=== PATIENT | female | born 1935 | race Caucasian/White ===

== ENCOUNTER 2016-08-13 13:49 | Inpatient (IN) | payer MEDICARE, OTHER ==
[~2016-08-13] VITALS: Ht 162.6 cm; Wt 78.2 kg
[~2016-08-13 13:49] MED LIST: VIGA LEFT EYE
[2016-08-13] MEDS ORDERED: AZTREONAM 1 GM/NS (PMX) 50 ML IVPB STA (14:06)
[2016-08-13] MEDS ORDERED: SOD CHLORIDE 0.9% 1,000 ML IV STA ×2 (14:06)
[2016-08-13] MEDS ORDERED: PANTOPRAZOLE IV 80 MG in SOD CHLORIDE 0.9% 100 ML IV STA (14:30)
[2016-08-13] MEDS ORDERED: ONDANSETRON 4 MG INJ IV STA (14:30)
[2016-08-13] MEDS ORDERED: VANCOMYCIN 1 GM (PMX) 250 ML IVPB ONE (14:30)
[2016-08-13] MEDS ORDERED: PANTOPRAZOLE IV 80 MG in SOD CHLORIDE 0.9% 100 ML IVPB STA (14:30)
--- NOTE | 2016-08-13 14:33 | RADRPT ---
PROCEDURE: XR Chest. CLINICAL INDICATION: Chest pain, respiratory distress, sepsis TECHNIQUE: AP view of the chest was performed. COMPARISON: FINDINGS: The cardiomediastinal silhouette is within normal limits. The lungs are clear. No signs of pleural f luid or pneumothorax are seen. The osseous structures and soft tissues are unremarkable. IMPRESSION: No evidence for active cardiopulmonary disease. RPTAT: QQ .Melissa Pruitt MD, MD Date Time Electronically viewed and signed by .Melissa Pruitt MD, on 08/13/2016 14:33 .F/
--- NOTE | 2016-08-13 14:49 | EN ---
Date/Time of Note Date/Time of Note DATE: 08/13/16 TIME: 14:47 ER Progress Note Peripheral IV Insertion: Indication: Difficult IV access Location: Right antecubital fossa Attempts: One attempt Angiocath-type: 18-gauge The patient was consented prior to procedure and states understanding of risks, benefits, alternatives. Verbal consent was provided Sterile procedure was used to insert a peripheral IV. Indication, location and Angiocath-type are noted above. Ultrasound guidance was used to assist in the insertion of the Angiocath. Return of dark nonpulsatile blood was obtained, normal saline flushed through the Angiocath which was then secured to the skin. The patient tolerated the procedure well without complications. Emergency Bedside Ultrasound: The patient was verbally consented prior to procedure and understands the risks , benefits, and alternatives. The patient is agreeable to procedure and has given verbal consent. Indication: Peripheral IV insertion Probe Type: Linear Findings: Dynamic ultrasound utilized with compression technique with both linear and horizontal views. The images were not able to be printed because the ultrasound machine does not have access to a printer HELDER BRISENO MD Aug 13, 2016 14:49
[2016-08-13] MEDS ORDERED: SOD CHLORIDE 0.9% 500 ML IV STA (14:53)
[2016-08-13 14:56] LABS: HEMATOCRIT 30.3 % (37.0-47.0); MEAN CORPUSCULAR HEMOGLOBIN 28.8 pg (29.0-33.0); MEAN CORPUSCULAR VOLUME 87.3 fl (82.0-101.0); MEAN PLATELET VOLUME 8.9 fl (7.4-10.4); PLATELET COUNT 255 10^3/UL (140-440); RED BLOOD COUNT 3.47 10^6/ul (4.20-5.40); UNCORRECTED WBC 21.1 10^3/ul (4.8-10.8); WHITE BLOOD COUNT 21.1 10^3/ul (4.8-10.8)
[2016-08-13 14:59] LABS: INR 1.57; PROTIME 18.9 Sec (12.2-14.2); PT RATIO 1.5
[2016-08-13] MEDS ORDERED: CARV12.598 PO (15:00)
[2016-08-13] MEDS ORDERED: DILTIAZEM 25 MG INJ IV ONE (15:00)
[2016-08-13] MEDS ORDERED: DOCU-144 PO (15:01)
[2016-08-13 15:03] LABS: ALBUMIN 2.2 g/dl (3.3-4.9); POTASSIUM 3.7 mmol/L (3.5-5.1)
[2016-08-13] MEDS ORDERED: CLON-379 PO (15:03)
[2016-08-13 15:05] LABS: BILIRUBIN,INDIRECT 0.1 mg/dl (0-1.1); BILIRUBIN,TOTAL 0.1 mg/dl (0.2-1.3); CREATININE 1.08 mg/dl (0.44-1.00)
[2016-08-13] MEDS ORDERED: BUSP10TA2 PO (15:05)
[2016-08-13 15:06] LABS: ALBUMIN/GLOBULIN RATIO 0.64; CALCIUM 7.3 mg/dl (8.4-10.2); TOTAL PROTEIN 5.6 g/dl (6.1-8.1)
[2016-08-13] MEDS ORDERED: ASPI-664 PO (15:06)
[2016-08-13] MEDS ORDERED: BEN25 PO (15:06)
[2016-08-13] MEDS ORDERED: POLY15DR25 BOTH EYES (15:07)
[2016-08-13 15:08] LABS: CONDITION 1; LH ANALYZER COMMENTS 1; SUSPECT 1
[2016-08-13] MEDS ORDERED: CRAN425C PO (15:08)
[2016-08-13] MEDS ORDERED: BISA-57 PO (15:09)
[2016-08-13] MEDS ORDERED: NA P135E RC (15:10)
--- NOTE | 2016-08-13 15:10 | RADRPT ---
PROCEDURE: Noncontrast CT Head. CLINICAL INDICATION: Sepsis. TECHNIQUE: Noncontrast CT of the head was obtained. The administered radiation dose was CTDI vol = 45.01, 45.01 mGy, DLP = 720.23, 720.23 mGy-cm. COMPARISON: There are no similar studies submitted for comparison. FINDINGS: Evaluation is mildly limited due to motion degradation. There is mild generalized cerebral volume loss. There is minimal periventricular hypoattenuation suggesting chronic microvascular ischemic changes. There are mild vascular calcifications within the intracranial carotid arteries. There is an indet erminate coarse calcification within the right aspect of the fourth ventricle. There is no loss of hernandez-white differentiation to suggest acute territorial infarction. There is no acute intracranial hemorrhage or extra-axial fluid collection. There is no mass effect. No midline shift is identified. The patient is status post bilateral lens surgery. The paranasal sinuses are well aerated. No destructive osseous lesion is identified. IMPRESSION: Evaluation is mildly limited due to motion degradation. 1. No acute intracranial hemorrhage or extra-axial fluid collection. 2. Mild generalized cerebral volume loss. 3. Minimal chronic microvascular ischemic changes. Further findings as detailed above. RPTAT: PP .Ben Coffey MD, MD Date Time Electronically viewed and signed by .Ben Coffey MD, on 08/13/2016 15:10 .F/
[2016-08-13] MEDS ORDERED: LANT3I SC (15:11)
[2016-08-13] MEDS ORDERED: GLIP5TAB13 PO (15:11)
[2016-08-13] MEDS ORDERED: ATOR10TA65 PO (15:12)
[2016-08-13] MEDS ORDERED: METF-382 PO (15:12)
[2016-08-13] MEDS ORDERED: MULTI PO (15:13)
[2016-08-13] MEDS ORDERED: MURO BOTH EYES (15:14)
[2016-08-13] MEDS ORDERED: NIT4 SL (15:14)
[2016-08-13] MEDS ORDERED: AMLO5TAB4 PO (15:15)
[2016-08-13] MEDS ORDERED: TRAM-40 PO (15:16)
[2016-08-13] MEDS ORDERED: ACET-2047 PO (15:16)
[2016-08-13 15:17] LABS: TROPONIN-I 0.013 ng/ml (0.00-0.12)
[2016-08-13] MEDS ORDERED: GUAI-637 PO (15:17)
[2016-08-13] MEDS ORDERED: ONDA-43 PO (15:18)
[2016-08-13] MEDS ORDERED: CALC1TAB79 PO (15:18)
[2016-08-13] MEDS ORDERED: ASCO500C7 PO (15:19)
[2016-08-13] MEDS ORDERED: NITROGLYCERIN (SL) 0.4 MG TAB SL PRN (16:00)
[2016-08-13] MEDS: PANTOPRAZOLE IV 80 MG in SOD CHLORIDE 0.9% 100 ML IV SCH (16:00)
[2016-08-13] MEDS ORDERED: DILTIAZEM-D5W 125MG/125ML DRIP 125 ML IV SCH (16:00)
[2016-08-13] MEDS ORDERED: ACETAMINOPHEN 650 MG SUPP PR PRN (16:00)
[2016-08-13] MEDS ORDERED: NACL 0.9% 3 ML SYG IV SCH (16:00)
[2016-08-13 16:08] LABS: BURR CELLS 1+; LYMPHOCYTES # 1.1 10^3/ul (0.8-2.9); MONOCYTE # 0.6 10^3/ul (0.3-0.9); NEUTROPHIL # 18.6 10^3/ul (1.6-7.5)
--- NOTE | 2016-08-13 16:13 | RADRPT ---
PROCEDURE: US DVT. CLINICAL INDICATION: Left upper extremity swelling and pain. TECHNIQUE: Multiple longitudinal and transverse images of the the left upper extremity veins were obtained with hernandez scale and color Doppler imaging. 2D grayscale measurements with compression, col or Doppler flow, and augmentation was performed. COMPARISON: No prior studies are available for comparison. FINDINGS: The left jugular vein, subclavian vein, axillary vein, and brachial veins are normally compressible throughout. Color flow demonstrates normal filling of the vessel. Normal waveforms are visualized and there is normal response to augmentation. The left radial vein was not imaged. The patient had some difficulty tolerating compression for the compression portion of the examination. IMPRESSION: 1. No evidence of a deep vein thrombosis involving the left upper extremity. RPTAT: HMJB .Segundo Gonzales MD, MD Date Time Electronically viewed and signed by .Segundo Gonzales MD, MD on 08/13/2016 16:13 .B/
[2016-08-13 16:36] LABS: CREATINE KINASE 46 IU/L (23-200); HDL CHOLESTEROL 8 mg/dl (33-92); MAGNESIUM 1.8 mg/dl (1.7-2.5); TRIGLYCERIDES 53 mg/dl (0-149)
[2016-08-13 16:37] LABS: CHOLESTEROL < 50 mg/dl (100-200)
[2016-08-13 16:48] LABS: TROPONIN-I 0.015 ng/ml (0.00-0.12)
[2016-08-13 16:49] LABS: CK-MB < 0.22 ng/ml (0.0-2.4)
--- NOTE | 2016-08-13 16:49 | HP ---
Date/Time of Note Date/Time of Note DATE: 08/13/16 TIME: 16:48 Assessment/Plan VTE Prophylaxis VTE Prophylaxis Intervention: contraindicated, SCD's VTE Contraindication Reason: bleeding Assessment/Plan Assessment/Plan 80 yo female who came in via BIBA from [facility] who has a past medical history of CVA , essential hypertension, CHF - diastolic type, AFib, dyslipidemia, PVD, GERD, anxiety, who came in because of weakness. 1. UGIB - acute - will admit the patient to telemetry, consult GI for EGD, protonix drip, H/H q6h, NPO, IVF, monitor acute changes 2. Afib with RVR - consult cardio, cardizem drip, 2D ECHO, fall precautions 3. SIRS - with tachycardia/leukocytosis - broad spectrum antibiotics, cultures, could be reactive for acute GI bleed 4. Metabolic acidosis - 2/2 #3 5. CVA - monitor changes - hold aspirin 6. Essential hypertension - lopressor 2.5 mg q6h prn for SBP > 160 7. CHF - diastolic type - I/O's monitor for acute edema 8. Dyslipidemia - hold statin 9. GERD - on protonix gtt 10. PVD - monitor for acute changes 11. Anxiety - prn ativan 12. GI ppx - protonix GTT 13. DVT ppx - scds - hold anticoagulants for acute bleed answered all of her questions. as per clinical course. this history and physical took greater then 45 minutes to complete HPI/ROS Admit Date/Time Admit Date/Time 08/13/2016, 4:48 pm Hx of Present Illness 80 yo female who came in via BIBA from [facility] who has a past medical history of CVA , essential hypertension, CHF - diastolic type, AFib, dyslipidemia, PVD, GERD, anxiety, who came in because of weakness. She has been feeling weak for a couple of days. During her ER visit, she had 2 episodes of hematemesis. She went into AFib RVR - placed on cardizem gtt. She denies any chest pain, loss of consciousness, headaches, urinary irregularities, shortness of breath, diarrhea , dizziness or other constitutional symptoms. ER course: protonix gtt, cardizem 10 mg bolus given, IVF ROS 14 point review of systems completed, please refer to HPI for any positive findings PMH/Family/Social Past Medical History CVA, AFib, PVD, GERD, anxiety Medical History: congestive heart failure, coronary artery disease, diabetes, high cholesterol, hypertension Past Surgical History , TNA Family History Significant Family History: no pertinent family hx Social History Alcohol Use: none Smoking Status: Never smoker Drug Use: none Exam/Review of Systems Vital Signs Vitals Vital Signs Date Time Temp Pulse Resp B/P Pulse Ox O2 Delivery O2 Flow Rate FiO2 08/13/16 15:25 Nasal Cannula 2 08/13/16 14:11 100.0 130 22 128/86 98 Exam Exam Gen Gifty: mild distress 2/2 to nausea, AAOx4 HEENT: NC/AT, PERRLA, EOMI, conjunctival pallor, no pharyngeal erythema, no tonsillar exudates, no lymphadenopathy, no JVD, no carotid bruits, MM with dried blood NECK: supple, no thyromegaly THORAX: symmetrical, no obvious deformities CV: S1S2, tachycardiac irregularly irregular, soft II/ systolic murmur apex Lungs: CTAB no W/C/R/R Abd: soft, NT/ND, +BS, no rebound, no guarding, neg HSM EXT: 1+ non-pitting bilateral lower extremity edema, no ecchymosis, no clubbing , FROM Neuro: CN II-XII grossly intact, no focal deficits Psych: good mentation, alert and oriented, good mood and affect Skin: decreased skin turgor Labs Result Diagram: 08/13/16 1410 08/13/16 1410 Medications Medications Current Medications Sodium Chloride (NS) 1,000 ml @ 75 mls/hr [id number] IV ; Start 08/13/16 at 15:31 Lorazepam (Ativan) 0.5 mg Q6H PRN IV ANXIETY; Start 08/13/16 at 16:00 Ondansetron HCl (Zofran Inj) 4 mg Q6H PRN IV NAUSEA AND/OR VOMITING; Start 08/13 at 16:00 Nitroglycerin (Nitroglycerin (Sl Tab) 0.4 Mg) 1 tab Q5M PRN SL CHEST PAIN; Start 08/13/16 at 16:00 Acetaminophen (Tylenol Supp) 650 mg Q6H PRN MO PAIN LEVEL 1-3 OR FEVER; Start 08/13/16 at 16:00 Morphine Sulfate (morphine) 2 mg Q4H PRN IV PAIN LEVEL 7-10; Start 08/13/16 at 16:00 Bisacodyl (Dulcolax) 5 mg DAILY PRN PO CONSTIPATION; Start 08/13/16 at 16:00 Insulin Aspart NOVOLOG *MILD* ALGORI... Q4 SC ; Start 08/13/16 at 17:00 Pantoprazole 80 mg/Sodium Chloride 100 ml @ 10 mls/hr Q10H IV ; Start 08/13/16 at 16:00 Diltiazem HCl (Cardizem-D5W 125 Mg/125 ml Drip) 125 ml @ 5 mls/hr TITRATE IV ; Start 08/13/16 at 16:00 Procedures Procedures Upper Ext Venous Duplex IMPRESSION: 1. No evidence of a deep vein thrombosis involving the left upper extremity. CT brain IMPRESSION: Evaluation is mildly limited due to motion degradation. 1. No acute intracranial hemorrhage or extra-axial fluid collection. 2. Mild generalized cerebral volume loss. 3. Minimal chronic microvascular ischemic changes. CXR IMPRESSION: No evidence for active cardiopulmonary disease. SÁNCHEZ WOMACK MD Aug 13, 2016 16:49
[2016-08-13] MEDS ORDERED: MAGNESIUM SULFATE 2 GM/50 ML 50 ML IVPB ONE (17:00)
[2016-08-13] MEDS ORDERED: GLUCAGON 1 MG INJ IM PRN (17:30)
[2016-08-13] MEDS ORDERED: DEXTROSE 50% 50 ML SYRINGE IV PRN (17:30)
[2016-08-13] MEDS ORDERED: GLUCOSE GEL 15 GRAM TUBE PO PRN ×2 (17:30)
[2016-08-13] MEDS ORDERED: GLUCOSE GEL 15 GRAM TUBE BUCCAL PRN (17:30)
--- NOTE | 2016-08-13 17:37 | ERA ---
ER Documentation Chief Complaint Date/Time DATE: 08/13/16 TIME: 17:33 Chief Complaint SWOLLEN RIGHT ARM HPI Patient is a 80-year-old female with stroke, diabetes, and kidney disease who presents with nausea and vomiting. She was brought in by ambulance. Please note the history and physical exam is limited secondary to the patient's mental status. He also has had left upper extremity swelling for 2 weeks. She had decreased intake by mouth. She has been diffusely weak. Upon review of old medical records the patient had one previous visit in October 2013. ROS All systems reviewed and are negative except as per history of present illness. Medications Home Meds Reported Medications Ascorbic Acid* (Vitamin C*) 500 Mg Capsule.sa, 500 MG PO DAILY, CAP 08/13/16 Ondansetron Hcl* (Zofran*) 4 Mg Tab, 4 MG PO Q4H Y for NAUSEA AND OR VOMITING, TAB 08/13/16 Calcium Carbonate/Vitamin D3 (Oysco 500+D Tablet) 1 Each Tablet, 1 EACH PO DAILY , TAB 08/13/16 Guaifenesin* (Robitussin*) 100 Mg/5 Ml Syrup, 200 MG PO Q4H Y for COUGH, ML 08/13/16 Tramadol Hcl* (Ultram*) 50 Mg Tablet, 50 MG PO Q4 Y for PAIN, TAB 08/13/16 Acetaminophen* (Acetaminophen*) 650 Mg Tablet, 650 MG PO Q4 Y for PAIN AND OR ELEVATED TEMP, #30 TAB 08/13/16 Amlodipine Besylate* (Norvasc*) 5 Mg Tablet, 5 MG PO DAILY, TAB 08/13/16 Nitroglycerin* (Nitrostat*) 0.4 Mg Tab.subl, 0.4 MG SL Q5MIN Y for CHEST PAIN, BOTTLE 08/13/16 Sodium Chloride* (Koffi-128*) 5%-15ml Opht, 1 DROP BOTH EYES TID, EA 08/13/16 Multivitamins* (Theragran*) 1 Tab Tab, 1 TAB PO DAILY, TAB 08/13/16 Metformin Hcl* (Metformin Hcl*) 500 Mg Tablet, 500 MG PO WITH MEALS, #30 TAB 08/13/16 Atorvastatin Calcium (Atorvastatin Calcium) 10 Mg Tablet, 10 MG PO QHS, #30 TAB 08/13/16 Insulin Glargine* (Lantus*) 100 Unit/Ml Soln, 30 UNIT SC QHS, #1 VIAL 08/13/16 Glipizide* (Glipizide*) 5 Mg Tablet, 5 MG PO AC BREAKFAST DINNER, TAB 08/13/16 Na Phos,M-B/Na Phos,Di-Ba (ENEMA READY TO USE) 135 Ml Enema, 135 ML RC PRN Y for CONSTIPATION, ENEMA 08/13/16 Bisacodyl* (Dulcolax*) 5 Mg Tablet.dr, 10 MG PO DAILY Y for CONSTIPATION, TAB 08/13/16 Cranberry Extract (Cranberry) 425 Mg Capsule, 425 MG PO DAILY, CAP 08/13/16 Polyvinyl Alcohol (Tears Again) 15 Ml Drops, 1 DRP BOTH EYES TID, BOTTLE 08/13/16 Aspirin (Low Dose Aspirin) 81 Mg Tablet.dr, 81 MG PO DAILY, #30 TAB 08/13/16 Diphenhydramine Hcl* (Benadryl*) 25 Mg Cap, 25 MG PO PRN Y for ITCHING, CAP 08/13/16 Buspirone Hcl* (Buspirone Hcl*) 10 Mg Tab, 10 MG PO MONWEDFRI, TAB AT BEDTIME 08/13/16 Clonidine Hcl* (Clonidine Hcl*) 0.1 Mg Tab, 0.1 MG PO Q8 Y for ELEVATED BLOOD PRESSURE, TAB GIVE IF SBP ABOVE 160 08/13/16 Docusate Sodium* (Colace*) 100 Mg Capsule, 200 MG PO QHS, #30 CAP 08/13/16 Carvedilol* (Coreg*) 12.5 Mg Tablet, 12.5 MG PO BID, #60 TAB 08/13/16 Discontinued Scripts Moxifloxacin Hcl* (Vigamox*) 0.5% - 3 Ml Opht, 1 DROP LEFT EYE TID for 7 Days, EA Prov:MICHELLE AMBROSE MD 10/11/15 Allergies Allergies: Coded Allergies: Penicillins (Verified Allergy, Unknown, 08/13/16) Sulfa (Sulfonamide Antibiotics) (Unverified Allergy, Unknown, 08/13/16) iodine (Verified Allergy, Unknown, 08/13/16) strawberry (Verified Allergy, Unknown, 08/13/16) PMhx/Soc History of Surgery: Yes (right foot) Anesthesia Reaction: No Hx Neurological Disorder: Yes (cva) Hx Respiratory Disorders: No Hx Cardiac Disorders: Yes (htn, pvd, cdk, afib, ) Hx Psychiatric Problems: No Hx Miscellaneous Medical Probl: Yes (gerd, dm, osteoarthritis) Hx Alcohol Use: No Hx Substance Use: No Hx Tobacco Use: No Smoking Status: Never smoker FmHx Family History: diabetes Physical Exam Vitals Vital Signs Date Time Temp Pulse Resp B/P Pulse Ox O2 Delivery O2 Flow Rate FiO2 08/13/16 15:25 Nasal Cannula 2 08/13/16 14:11 100.0 130 22 128/86 98 Physical Exam Const: No acute distress Head: Atraumatic Eyes: Normal Conjunctiva ENT: Normal External Ears, Nose and Mouth. Neck: Full range of motion..~ No meningismus. Resp: Clear to auscultation bilaterally Cardio: Irregular rhythm with tachycardic rate Abd: Soft, non tender, non distended. Normal bowel sounds Skin: Pale, swelling to left upper extremity Back: No midline or flank tenderness Ext: Left upper extremity swelling Neur: Awake but confused Result Diagram: 08/13/16 1410 08/13/16 1410 Results 24 hrs Laboratory Tests Test 08/13/16 14:10 08/13/16 14:20 08/13/16 16:10 Activated Partial Thromboplast Time 42.0Sec Alanine Aminotransferase (ALT/SGPT) 155IU/L Albumin 2.2g/dl Albumin/Globulin Ratio 0.64 Alkaline Phosphatase 123IU/L Anion Gap 16 Aspartate Amino Transf (AST/SGOT) 312IU/L Band Neutrophils % 4.0% Blood Morphology Comment Blood Urea Nitrogen 67mg/dl Calcium Level 7.3mg/dl Carbon Dioxide Level 19mmol/L Chloride Level 101mmol/L Creatinine 1.08mg/dl Direct Bilirubin 0.00mg/dl Globulin 3.40g/dl Glucose Level 158mg/dl Hematocrit 30.3% Hemoglobin 10.0g/dl INR International Normalized Ratio 1.57 Indirect Bilirubin 0.1mg/dl Lactic Acid Level 3.6mmol/L 3.1mmol/L Lymphocytes # 1.110^3/ul Lymphocytes % 5.0% Mean Corpuscular Hemoglobin 28.8pg Mean Corpuscular Hemoglobin Concent 33.0g/dl Mean Corpuscular Volume 87.3fl Mean Platelet Volume 8.9fl Monocytes # 0.610^3/ul Monocytes % 3.0% Neutrophils # 18.610^3/ul Neutrophils % 88.0% Platelet Count 15818^3/UL Potassium Level 3.7mmol/L Prothrombin Time 18.9Sec Prothrombin Time Ratio 1.5 Red Blood Count 3.4710^6/ul Red Cell Distribution Width 14.0% Sodium Level 132mmol/L Total Bilirubin 0.1mg/dl Total Protein 5.6g/dl Troponin I 0.013ng/ml 0.015ng/ml White Blood Count 21.110^3/ul Cholesterol Level < 50mg/dl Cholesterol/HDL Ratio RATIO Creatine Kinase 46IU/L Creatine Kinase Index 0.5 Creatinine Kinase MB (Mass) < 0.22ng/ml HDL Cholesterol 8mg/dl Hemoglobin A1c 9.8% LDL Cholesterol, Calculated mg/dl Magnesium Level 1.8mg/dl Thyroid Stimulating Hormone (TSH) 0.080MIU/L Triglycerides Level 53mg/dl Current Medications Medications (Trade) Dose Ordered Sig/Lauren Route PRN Reason Start Time Stop Time Status Last Admin Dose Admin Vancomycin HCl 250 ml @ 125 mls/hr ONCE ONCE IVPB 08/13/16 14:30 08/13/16 16:29 DC 08/13/16 16:29 Aztreonam 50 ml @ 100 mls/hr ONCE STAT IVPB 08/13/16 14:06 08/13/16 14:35 DC 08/13/16 15:58 Sodium Chloride 1,000 ml @ 1,000 mls/hr Q1H STAT IV 08/13/16 14:06 08/13/16 15:05 DC 08/13/16 15:57 Sodium Chloride 1,000 ml @ 1,000 mls/hr Q1H STAT IV 08/13/16 14:06 08/13/16 15:05 DC 08/13/16 14:54 Pantoprazole 80 mg/Sodium Chloride 100 ml @ 400 mls/hr ONCE STAT IVPB 08/13/16 14:30 08/13/16 14:44 DC 08/13/16 15:58 Pantoprazole/ Sodium Chloride (Protonix Iv/NS) 100 ml @ 10 mls/hr ONCE STAT IV 08/13/16 14:30 08/14/16 00:29 08/13/16 15:58 Ondansetron HCl 4 mg 4 mg ONCE STAT IV 08/13/16 14:30 08/13/16 14:32 DC 08/13/16 14:52 Sodium Chloride (NS) 500 ml @ 500 mls/hr Q1H STAT IV 08/13/16 14:53 08/13/16 15:52 DC 08/13/16 14:53 Diltiazem HCl 10 mg 10 mg ONCE ONCE IV 08/13/16 15:00 08/13/16 15:03 DC 08/13/16 16:14 Sodium Chloride (NS) 1,000 ml @ 75 mls/hr [id number] IV 08/13/16 15:31 IV Flush (NS 3 ml) 3 ml PER PROTOCOL IV 08/13/16 16:00 Lorazepam (Ativan) 0.5 mg Q6H PRN IV ANXIETY 08/13/16 16:00 Ondansetron HCl (Zofran Inj) 4 mg Q6H PRN IV NAUSEA AND/OR VOMITING 08/13/16 16:00 Nitroglycerin (Nitroglycerin (Sl Tab) 0.4 Mg) 1 tab Q5M PRN SL CHEST PAIN 08/13/16 16:00 Acetaminophen (Tylenol Supp) 650 mg Q6H PRN OR PAIN LEVEL 1-3 OR FEVER 08/13/16 16:00 Morphine Sulfate (morphine) 2 mg Q4H PRN IV PAIN LEVEL 7-10 08/13/16 16:00 Bisacodyl (Dulcolax) 5 mg DAILY PRN PO CONSTIPATION 08/13/16 16:00 Insulin Aspart (Novolog Insulin Pen) NOVOLOG *MILD* ALGORI... Q4 SC 08/13/16 17:00 Miscellaneous Information (* Miscellaneous Pharmacy Order) HYPOGLYCEMIA PROTOCOL w... ONCE ONCE XX 08/13/16 16:00 08/13/16 16:12 DC Miscellaneous Information (* Miscellaneous Pharmacy Order) Discontinue Glyburide, Glipizide,... ONCE ONCE XX 08/13/16 16:00 08/13/16 16:12 DC Miscellaneous Information Discontinue all previ... ONCE ONCE XX 08/13/16 16:00 08/13/16 16:12 DC Pantoprazole 80 mg/Sodium Chloride 100 ml @ 10 mls/hr Q10H IV 08/13/16 16:00 Diltiazem HCl 125 ml @ 5 mls/hr TITRATE IV 08/13/16 16:00 08/13/16 17:32 Magnesium Sulfate (Magnesium Sulfate 2 Gm/50 ml) 50 ml @ 25 mls/hr ONCE ONCE IVPB 08/13/16 17:00 08/13/16 18:59 Miscellaneous Information 1 ea NOTE XX 08/13/16 17:30 Glucose (Glutose) 15 gm Q15M PRN PO DECREASED GLUCOSE 08/13/16 17:30 Glucose (Glutose) 22.5 gm Q15M PRN PO DECREASED GLUCOSE 08/13/16 17:30 Dextrose (D50w Syringe) 25 ml Q15M PRN IV DECREASED GLUCOSE 08/13/16 17:30 Dextrose (D50w Syringe) 50 ml Q15M PRN IV DECREASED GLUCOSE 08/13/16 17:30 Glucagon (Glucagen) 1 mg Q15M PRN IM DECREASED GLUCOSE 08/13/16 17:30 Glucose (Glutose) 15 gm Q15M PRN BUCCAL DECREASED GLUCOSE 08/13/16 17:30 Procedures/MDM Chest x-ray shows no pneumonia per radiology. CT brain negative for intracranial hemorrhage per radiology. Ultrasound of the upper extremity left negative per radiology. EKG read by me: Rate/Rhythm: Atrial fibrillation with rapid ventricular response Intervals: Normal Impression: A. fib with RVR Patient is a 80-year-old female presents with acute atrial fibrillation with rapid ventricular response and altered mental status. The patient vomited bright red blood in the emergency department and I do have a concern for upper GI bleed. The patient was given Protonix. The patient was given 2.5 L of normal saline for fluid resuscitation and 10 mg of diltiazem IV. The patient will be admitted to the care of Dr. Gibson as the patient has Medicare [employer] insurance. He asked me to call Dr. Bello who was called and I am awaiting a call back at this time. The patient be admitted to a telemetry bed. The patient has a leukocytosis and we are waiting for a urinalysis to come back. The patient was given broad-spectrum antibiotics. The patient was also given a fluid bolus for potential severe sepsis. Admit MDM: Patient's infectious symptoms have not stabilized and the patient is at risk of rapid decompensation. The patient will be admitted for careful hydration, antibiotic therapy, and infectious source control. Severe Sepsis criteria: Infectious source: Possible cystitis End organ damage indicated by: Lactate greater than 2 Sepsis Management: Time of recognition of sepsis: Upon arrival Within 3 hours of recognition: Blood cultures x 2 before broad-spectrum antibiotics: Yes 30 ml/kg NS bolus Completed Initial lactate 3.6 Repeat lactate 3.1 Time of recognition of septic shock: No septic shock Septic Shock Assessment: Any lactic acid > 4.0 No Persistent hypotension (SBP < 90 or 40 mmHg drop, MAP < 65) despite 30 mL/kg IV fluid bolus No Volume Re-assessment for Septic Shock (post 30 ml/kg bolus): No septic shock at this time Persistent Hypotension Treatment: Comfort care No Central line Not Required Vasopressor started Not required I considered further perfusion assessment with CVP measurement, SCVO2, bedside ultrasound volume assessment, passive leg raise, trial of further fluid bolus. And proceeded with 30 ml/kg fluid bolus of NSS, broad spectrum antibiotics, and admission. Accepting Care Team Current data and ongoing care discussed. Admitting Physician: Dr. Gibson [employer] Home Laborer(s): None Outstanding Data: Culture results Critical Care: Critical care time 35 minutes excluding all billable procedures Emergent fluid management while maintaining close respiratory support. Provision of immediate and broad-spectrum antibiotic therapy. Simultaneous assessment for possible sources in order to direct targeted therapy. Consideration for invasive and chemical support to prevent cardiopulmonary collapse. Departure Diagnosis: Primary Impression: Acute GI bleeding Additional Impressions: Swelling Rapid atrial fibrillation Severe sepsis Condition: Serious MICHELLE AMBROSE MD Aug 13, 2016 17:37
[2016-08-13 19:07] LABS: ADD UMIC YES; URINE BILIRUBIN (Dip) NEGATIVE (NEGATIVE); URINE BLOOD (Dip) NEGATIVE (NEGATIVE); URINE GLUCOSE (Dip) NEGATIVE (NEGATIVE); URINE KETONES (Dip) NEGATIVE (NEGATIVE); URINE LEUKOCYTE ESTERASE (Dip) 1+ (NEGATIVE); URINE NITRITE (Dip) NEGATIVE (NEGATIVE); URINE TOTAL PROTEIN (Dip) NEGATIVE (NEGATIVE); URINE UROBILINOGEN (Dip) 0.2 E.U./dL (0.1-1.0)
[2016-08-13 19:16] LABS: URINE COLOR YELLOW (YELLOW)
[2016-08-13 19:18] LABS: BACTERIA,URINE MANY
[2016-08-13 19:19] LABS: SQUAMOUS EPITHELIAL CELL,UR MODERATE; URINE RBCS 2-5 (1+) /HPF (0)
[2016-08-13] MEDS: SOD CHLORIDE 0.9% 1,000 ML IV SCH (19:59)
[2016-08-13] MEDS: INSULIN ASPART [NOVOLOG] 3 ML PEN SC SCH ×2 (21:00→21:24)
[2016-08-13 22:13] LABS: HEMATOCRIT 25.5 % (37.0-47.0); HEMOGLOBIN 8.4 g/dl (12.0-16.0)
[2016-08-13 22:29] LABS: CK-MB 0.32 ng/ml (0.0-2.4)
[2016-08-13 22:32] LABS: TROPONIN-I 0.014 ng/ml (0.00-0.12)
[2016-08-13 23:26] VITALS: TEMP 98.1
[2016-08-14] VITALS (17 sets, daily range): BP systolic 100–130; BP diastolic 52–89; PULSE 86–99; RESP 16–22; Ht 162.6 cm; Wt 78.2 kg
[2016-08-14] MEDS: INSULIN ASPART [NOVOLOG] 3 ML PEN SC SCH ×4 (01:00→14:17)
[2016-08-14] MEDS: PANTOPRAZOLE IV 80 MG in SOD CHLORIDE 0.9% 100 ML IV SCH ×3 (04:41→21:48)
[2016-08-14] MEDS: SOD CHLORIDE 0.9% 1,000 ML IV SCH ×2 (04:51→14:19)
[2016-08-14] MEDS ORDERED: COLLAGENASE 30 GM TUBE TOP PRN (05:30)
[2016-08-14 07:05] LABS: BASOPHILS % 0.1 % (0.0-2.0); EOSINOPHILS % 0.2 % (0.0-7.0); HEMATOCRIT 27.1 % (37.0-47.0); LYMPHOCYTES # 0.8 10^3/ul (0.8-2.9); LYMPHOCYTES % 4.9 % (15.0-51.0); MEAN CORPUSCULAR HEMOGLOBIN 29.1 pg (29.0-33.0); MEAN CORPUSCULAR HGB CONC 33.2 g/dl (32.0-37.0); MEAN CORPUSCULAR VOLUME 87.6 fl (82.0-101.0); MEAN PLATELET VOLUME 9.2 fl (7.4-10.4); MONOCYTE # 0.2 10^3/ul (0.3-0.9); MONOCYTES % 1.4 % (0.0-11.0); NEUTROPHIL # 15.7 10^3/ul (1.6-7.5); NEUTROPHILS % 93.4 % (39.0-77.0); PLATELET COUNT 215 10^3/UL (140-440); RED BLOOD COUNT 3.09 10^6/ul (4.20-5.40); RED CELL DISTRIBUTION WIDTH 14.2 % (11.5-14.5); UNCORRECTED WBC 16.8 10^3/ul (4.8-10.8); WHITE BLOOD COUNT 16.8 10^3/ul (4.8-10.8)
[2016-08-14 07:08] LABS: CONDITION 1; LH ANALYZER COMMENTS 1; SUSPECT 1
[2016-08-14 07:24] LABS: CREATININE 0.73 mg/dl (0.44-1.00)
[2016-08-14 07:25] LABS: CALCIUM 7.1 mg/dl (8.4-10.2)
[2016-08-14] MEDS: COLLAGENASE 30 GM TUBE TOP SCH (07:55)
[2016-08-14] MEDS ORDERED: VANCOMYCIN IV PER PHARMACY XX SCH (10:30)
[2016-08-14 10:39] LABS: HEMATOCRIT 26.1 % (37.0-47.0); HEMOGLOBIN 8.6 g/dl (12.0-16.0)
--- NOTE | 2016-08-14 11:31 | PN ---
DATE: 08/14/2016 SUBJECTIVE DATA: Denies any chest pain. She was complaining of back pain earlier. Remains in atrial fibrillation. However, the heart rate is controlled. OBJECTIVE DATA: VITAL SIGNS: Temperature 98.0, pulse rate 87, respiratory rate 70, blood pressure 115/54, oxygen saturation 99% on low flow O2. GENERAL: This is a frail-looking elderly female lying in bed in no apparent distress. HEENT: Head normocephalic and atraumatic. Eyes: Anicteric sclerae. Conjunctivae clear. ENT: Nasal septum is midline. Oral mucosa is dry. NECK: Supple. No JVD noticed. RESPIRATORY: Bilaterally diminished breath sounds. No adventitious breath sounds. No use of accessory muscles of respiration. CARDIAC: Irregularly irregular rhythm. ABDOMEN: Soft, nontender and nondistended. Bowel sounds hypoactive in all 4 quadrants. GENITOURINARY: Deferred. EXTREMITIES: No cyanosis, no clubbing. Bilateral lower extremity 1 to 2+ pitting edema. Left upper extremity 2 to 3+ pitting edema. Left upper extremity tenderness upon palpation. Peripheral pulses are diminished. NEUROLOGIC: The patient is awake and alert and oriented x1 to 2. LABORATORY AND DIAGNOSTIC DATA: WBC 16.8, hemoglobin 9.0, hematocrit 27.1, platelet count 215. Sodium 136, potassium 4.0, chloride 107, carbon dioxide 18 , anion gap 15, BUN 57, creatinine 0.72, glucose 186, calcium 7.1. Blood cultures x2 positive for gram-positive cocci in clusters. ASSESSMENT AND PLAN: 1. Upper gastrointestinal bleeding. Continue Protonix drip. The patient was evaluated by gastroenterology. The patient is scheduled for an esophagogastroduodenoscopy. 2. Atrial fibrillation with rapid ventricular response. Currently, the rate is controlled. No anticoagulation because of underlying gastrointestinal bleed. 3. Sepsis with underlying gram-positive bacteremia. Continue antibiotics. Will involve Infectious Diseases on the case. 4. Lactic acidosis, most probably secondary to #3. 5. Essential hypertension. Continue antihypertensives. 6. Peripheral vascular disease. Monitor for acute changes. Anticoagulation on hold because of current gastrointestinal bleed. 8. Dyslipidemia. Hold statins for the time. Fasting lipid panel showing low HDL and a low total cholesterol. 9. Type 2 diabetes mellitus. Hemoglobin A1c 9.8. Continue sliding scale insulin. 10. Left upper extremity edema. Left upper extremity venous Doppler study negative for any deep venous thrombosis. Continue elevation of left upper extremity. 11. Multiple pressure ulcers. Continue local wound care. Wound care consult. 12. Fluid, electrolytes and nutrition. NPO except for medications. 13. DVT prophylaxis with serial sequential compression devices. No anticoagulation because of underlying GI bleed. 14. Gastrointestinal prophylaxis with proton pump inhibitors. PLAN: 1. Await gastroenterology procedure. 2. Continue telemetry monitoring. 3. Will call infectious disease for antibiotic management. Case discussed with Dr. Telelz. DANN TELLEZ MD, AM/TIN Conf#: [id number] DID#: [id number]
[2016-08-14] MEDS ORDERED: VANCOMYCIN 1 GM in NS 250 ML IVPB SCH (12:00)
--- NOTE | 2016-08-14 12:14 | CONS ---
Date/Time of Note Date/Time of Note DATE: 08/14/16 TIME: 12:06 Assessment/Plan Assessment/Plan Additional Assessment/Plan SIRS with positive blood cultures Atrial fibrillation with rapid ventricular rates, improved History of congestive heart failure History of hypertension History of CVA Possible GI bleed Diabetes -Patient currently with controlled ventricular rates in the 90s and on Cardizem 5 mg IV drip. Would start by mouth Cardizem and titrate up IV drip. Obtain echocardiogram, continue IV fluids and watch respiratory status closely for decompensated congestive heart failure. On review of medication reconciliation, it does not appear patient was on anticoagulation. Given concern for GI bleed at the current time, would hold off initiation of anticoagulation. Would hold any antihypertensives at the current time. Antibiotics as per primary team. Consultation Date/Type/Reason Admit Date/Time 08/13/2016, 4:48 pm Type of Consultation: cv Reason for Consultation Atrial fibrillation Hx of Present Illness This is a 80-year-old female with past medical history of CVA, hypertension, atrial fibrillation, dementia was transferred from assisted facility secondary to altered mental status, weakness and tachycardia. Patient with hematemesis and atrial fibrillation with rapid ventricular rates. Patient given IV fluids, Cardizem IV and heart rate has improved. She denies any shortness of breath currently, palpitations or chest pain. She does complain of abdominal pain and nausea. 12 point review of systems was performed with all pertinent positives and negatives mentioned above and all else is negative Past Medical History Medical History: congestive heart failure, coronary artery disease, diabetes, high cholesterol, hypertension Family History Significant Family History: no pertinent family hx Social History Alcohol Use: none Smoking Status: Never smoker Drug Use: none Other Social History From assisted facility Exam/Review of Systems Vital Signs Vitals Vital Signs Date Time Temp Pulse Resp B/P Pulse Ox O2 Delivery O2 Flow Rate FiO2 08/14/16 11:41 97.9 98 18 105/52 99 08/14/16 02:27 Nasal Cannula 2.0 08/14/16 00:30 28 Intake and Output 08/13/16 08/13/16 08/14/16 15:00 23:00 07:00 Intake Total 20 ml Output Total 750 ml Balance -730 ml Exam And awake, follows commands, no apparent distress, confused at times Constitutional: alert Head: normocephalic Neck: supple Respiratory: other (course breath sounds bilaterally, no wheezing) Cardiovascular: irregular rhythm, other (S1-S2 heard), systolic murmur Gastrointestinal: bowel sounds, non-tender, soft Extremities: edema Results Result Diagram: 08/14/16 1010 08/14/16 0630 Results 24 hrs Laboratory Tests Test 08/13/16 14:10 08/13/16 14:20 08/13/16 16:10 08/13/16 17:15 Activated Partial Thromboplast Time 42.0 H Alanine Aminotransferase (ALT/SGPT) 155 H Albumin 2.2 L Albumin/Globulin Ratio 0.64 Alkaline Phosphatase 123 H Anion Gap 16 Aspartate Amino Transf (AST/SGOT) 312 H Band Neutrophils % 4.0 Blood Morphology Comment Blood Urea Nitrogen 67 H Calcium Level 7.3 L Carbon Dioxide Level 19 L Chloride Level 101 Creatinine 1.08 H Direct Bilirubin 0.00 Globulin 3.40 H Glucose Level 158 Hematocrit 30.3 L Hemoglobin 10.0 L INR International Normalized Ratio 1.57 Indirect Bilirubin 0.1 Lactic Acid Level 3.6 H 3.1 H Lymphocytes # 1.1 Lymphocytes % 5.0 L Mean Corpuscular Hemoglobin 28.8 L Mean Corpuscular Hemoglobin Concent 33.0 Mean Corpuscular Volume 87.3 Mean Platelet Volume 8.9 Monocytes # 0.6 Monocytes % 3.0 Neutrophils # 18.6 H Neutrophils % 88.0 H Platelet Count 255 Potassium Level 3.7 Prothrombin Time 18.9 H Prothrombin Time Ratio 1.5 Red Blood Count 3.47 L Red Cell Distribution Width 14.0 Sodium Level 132 L Total Bilirubin 0.1 L Total Protein 5.6 L Troponin I 0.013 0.015 White Blood Count 21.1 H Cholesterol Level < 50 L Cholesterol/HDL Ratio Creatine Kinase 46 Creatine Kinase Index 0.5 Creatinine Kinase MB (Mass) < 0.22 HDL Cholesterol 8 L Hemoglobin A1c 9.8 H LDL Cholesterol, Calculated Magnesium Level 1.8 Thyroid Stimulating Hormone (TSH) 0.080 L Triglycerides Level 53 Urine Amorphous Urates MODERATE Urine Bacteria MANY Urine Bilirubin NEGATIVE Urine Clarity CLOUDY Urine Color YELLOW Urine Glucose NEGATIVE Urine Hemoglobin NEGATIVE Urine Ketones NEGATIVE Urine Leukocyte Esterase 1+ H Urine Microscopic RBC 2-5 (1+) Urine Microscopic WBC 10-25 Urine Nitrite NEGATIVE Urine Specific Mars 1.020 Urine Squamous Epithelial Cells MODERATE Urine Total Protein NEGATIVE Urine Urobilinogen 0.2 E.U./dL Urine pH 5.5 Test 08/13/16 19:42 08/13/16 21:03 08/13/16 21:40 08/14/16 03:38 Lactic Acid Level 1.3 Bedside Glucose 206 216 Creatine Kinase 39 Creatine Kinase Index 0.8 Creatinine Kinase MB (Mass) 0.32 Hematocrit 25.5 L Hemoglobin 8.4 L Troponin I 0.014 Test 08/14/16 06:01 08/14/16 06:30 08/14/16 10:10 Bedside Glucose 212 Anion Gap 15 Basophils # 0.0 Basophils % 0.1 Blood Urea Nitrogen 67 H Calcium Level 7.1 L Carbon Dioxide Level 18 L Chloride Level 107 Creatinine 0.73 Differential Comment AUTO w/SCAN Eosinophils # 0.0 Eosinophils % 0.2 Glucose Level 186 Hematocrit 27.1 L 26.1 L Hemoglobin 9.0 L 8.6 L Lymphocytes # 0.8 Lymphocytes % 4.9 L Mean Corpuscular Hemoglobin 29.1 Mean Corpuscular Hemoglobin Concent 33.2 Mean Corpuscular Volume 87.6 Mean Platelet Volume 9.2 Monocytes # 0.2 L Monocytes % 1.4 Neutrophils # 15.7 H Neutrophils % 93.4 H Nucleated Red Blood Cells # 0.0 Nucleated Red Blood Cells % 0.0 Platelet Count 215 Potassium Level 4.0 Red Blood Count 3.09 L Red Cell Distribution Width 14.2 Sodium Level 136 White Blood Count 16.8 #H Medications Medications Current Medications Sodium Chloride (NS) 1,000 ml @ 75 mls/hr [id number] IV Last administered on t 19:59; Admin Dose 75 MLS/HR; Start 08/13/16 at 15:31 Lorazepam (Ativan) 0.5 mg Q6H PRN IV ANXIETY; Start 08/13/16 at 16:00 Ondansetron HCl (Zofran Inj) 4 mg Q6H PRN IV NAUSEA AND/OR VOMITING; Start 08/13 at 16:00 Nitroglycerin (Nitroglycerin (Sl Tab) 0.4 Mg) 1 tab Q5M PRN SL CHEST PAIN; Start 08/13/16 at 16:00 Acetaminophen (Tylenol Supp) 650 mg Q6H PRN SC PAIN LEVEL 1-3 OR FEVER; Start 08/13/16 at 16:00 Morphine Sulfate (morphine) 2 mg Q4H PRN IV PAIN LEVEL 7-10; Start 08/13/16 at 16:00 Bisacodyl (Dulcolax) 5 mg DAILY PRN PO CONSTIPATION; Start 08/13/16 at 16:00 Insulin Aspart NOVOLOG *MILD* ALGORI... Q4 SC Last administered on 08/14/16 06: 05; Admin Dose 2 UNIT; Start 08/13/16 at 17:00 Pantoprazole 80 mg/Sodium Chloride 100 ml @ 10 mls/hr Q10H IV Last administered on 08/14/16 04:41; Admin Dose 10 MLS/HR; Start 08/13/16 at 16:00 Diltiazem HCl (Cardizem-D5W 125 Mg/125 ml Drip) 125 ml @ 5 mls/hr TITRATE IV Last administered on 08/13/16 17:32; Admin Dose 5 MLS/HR; Start 08/13/16 at 16:00 Miscellaneous Information 1 ea NOTE XX ; Start 08/13/16 at 17:30 Glucose (Glutose) 15 gm Q15M PRN PO DECREASED GLUCOSE; Start 08/13/16 at 17:30 Glucose (Glutose) 22.5 gm Q15M PRN PO DECREASED GLUCOSE; Start 08/13/16 at 17:30 Dextrose (D50w Syringe) 25 ml Q15M PRN IV DECREASED GLUCOSE; Start 08/13/16 at 17:30 Dextrose (D50w Syringe) 50 ml Q15M PRN IV DECREASED GLUCOSE; Start 08/13/16 at 17:30 Glucagon (Glucagen) 1 mg Q15M PRN IM DECREASED GLUCOSE; Start 08/13/16 at 17:30 Glucose (Glutose) 15 gm Q15M PRN BUCCAL DECREASED GLUCOSE; Start 08/13/16 at 17: 30 Collagenase (Santyl) 1 applic DAILY TOP ; Start 08/14/16 at 09:00 Collagenase 1 applic 1 applic PRN PRN TOP WOUND CARE; Start 08/14/16 at 05:30 Vancomycin HCl 250 ml @ 125 mls/hr ONCE IVPB ; Start 08/14/16 at 12:00; Stop 08/14/16 at 13:59 Vancomycin HCl/ Sodium Chloride (Vancocin/NS) 250 ml @ 83.333 mls/ hr Q24H IVPB ; Start 08/15/16 at 12:00 Procedures Procedures ECG done yesterday demonstrates atrial fibrillation with rapid ventricular rates in the 170s, QRS 82 ms, nonspecific STT wave abnormalities Heart rate currently on telemetry in the 90s and atrial fibrillation Shawn Lozada DO Aug 14, 2016 12:14
[2016-08-14] MEDS ORDERED: PROPOFOL 20 ML ONE (12:35)
[2016-08-14] MEDS ORDERED: ONDANSETRON 4 MG INJ IV PRN (13:00)
[2016-08-14] MEDS ORDERED: DIPHENHYDRAMINE 50 MG INJ IV PRN (13:00)
[2016-08-14] MEDS ORDERED: MEPERIDINE 25 MG INJ IV PRN (13:00)
[2016-08-14] MEDS ORDERED: FENTAnyl 50 MCG/ML VIAL IV PRN (13:00)
[2016-08-14] MEDS ORDERED: METOCLOPRAMIDE 10 MG INJ IV PRN (13:00)
[2016-08-14] MEDS ORDERED: MIDAZOLAM 1 MG/ML 2 ML INJ IV PRN (13:00)
[2016-08-14] MEDS: DILTIAZEM 30 MG TAB PO SCH ×2 (14:15→21:48)
[2016-08-14 16:05] LABS: HEMATOCRIT 26.9 % (37.0-47.0); HEMOGLOBIN 8.7 g/dl (12.0-16.0)
--- NOTE | 2016-08-14 16:26 | RADRPT ---
Echocardiogram Report Patient Name: CHILANGO RIVERA Gender: Female Date: 1935 Study Date: 14-Aug-2016 Pickle Solution Maker: Brandy Raymond [facility] Location: 529 Ref. Physician: SÁNCHEZ WOMACK Quality: Good Procedures: Transthoracic echocardiogram with complete 2D, M-Mode, and doppler examination. Indications: Atrial Fibrillation, RVR. 2D/M Mode Doppler Measurement Value Normal Ranges Measurement Value Normal Ranges LVIDd 2D 5.0 3.5 - 5.6 cm AV Peak Johan 1.6 m/sec LVIDs 2D 3.2 2.1 - 4.1 cm AV Peak PG 10.0 mmHg LVPWd 2D 1.0 0.6 - 1.1 cm LVOT Peak Johan 0.9 m/sec IVSd 2D 1.0 0.6 - 1.1 cm LVOT Peak PG 3.5 mmHg AoR Diam 2D 2.5 2.0 - 3.7 cm TR Peak Johan 2.6 m/sec EDV 2D 117.7 cm3 TR Peak PG 27.0 mmHg ESV 2D 32.1 cm3 RVSP 30.0 mmHg LA Dimen 2D 3.5 2.3 - 4.0 cm Findings Left Ventricle: Normal left ventricular systolic function. Normal left ventricular cavity size. Normal left ventricular wall thickness. Ejection fraction is visually estimated at 60 %. Tissue Doppler/Mitral Doppler indices are indeterminate in this study due to the presence of atrial fibrillation. Right Ventricle: Normal right ventricular size. Normal right ventricular systolic function. Left Atrium: The left atrium is normal in size. Right Atrium: The right atrium is normal in size. Mitral Valve: Mitral valve leaflets appear mildly thickened. Moderate mitral annular calcification. Trace mitral regurgitation. Aortic Valve: No hemodynamically significant aortic stenosis by doppler. Aortic cusps appear mildly calcified. Trace to mild aortic valve regurgitation. Tricuspid Valve: Normal appearance of the tricuspid valve. Estimated peak PA systolic pressure 30 mmHg. There is mild tricuspid regurgitation. Pericardium: Normal pericardium with no significant pericardial effusion. Aorta: Normal aortic root. IVC: Normal size and normal respiratory collapse consistent with normal right atrial pressure. Conclusions Normal left ventricular systolic function. Normal left ventricular cavity size. Normal left ventricular wall thickness. Ejection fraction is visually estimated at 60 %. Normal right ventricular size. Normal right ventricular systolic function. The left atrium is normal in size. The right atrium is normal in size. Trace mitral regurgitation. No hemodynamically significant aortic stenosis by doppler. Trace to mild aortic valve regurgitation. Estimated peak PA systolic pressure 30 mmHg. There is mild tricuspid regurgitation. Normal pericardium with no significant pericardial effusion. Electronically Signed By: Shawn Lozada 14-Aug-2016 16:25:20 -0800 Patient Name: CHILANGO RIVERA Study Date: 14-Aug-[id number]
[2016-08-14] MEDS ORDERED: INSULIN ASPART [NOVOLOG] 3 ML PEN SC SCH (17:25)
--- NOTE | 2016-08-14 17:32 | CONS ---
DATE OF ADMISSION: 08/14/2016 DATE OF CONSULTATION: 08/14/2016 TYPE OF CONSULTATION: Infectious Disease. REASON FOR CONSULTATION: Antibiotic management. HISTORY OF PRESENT ILLNESS: Gisela Leija is a 80-year-old female who comes in by ambulance from a [facility] with increasing weakness. Her past problems include: 1. History of CVA. 2. Essential hypertension. 3. Diastolic congestive heart failure. 4. Atrial fibrillation. 5. Dyslipidemia. 6. Peripheral vascular disease. 7. GERD. 8. Anxiety. The patient was feeling weak a few days prior to admission. In the emergency room, she had 2 episod es of hematemesis and went into atrial fibrillation, rapid ventricular response, placed on Cardizem. She had no chest pain. On admission, her white count was 21.1, H and H of 10 and 30.3, platelet c ount of 255,000. BUN and creatinine 67/1.08, glucose of 158. PAST MEDICAL HISTORY: Operations as outlined. FAMILY HISTORY: Noncontributory. PAST SURGICAL HISTORY: She had a and T and A. SOCIAL HISTORY: She does not smoke, drink or abuse drugs. ALLERGIES: NONE TO PENICILLIN, SULFA OR FOODS. MEDICATIONS: Per chart. REVIEW OF SYSTEMS: Noncontributory. PHYSICAL EXAMINATION: GENERAL: The patient is a well-developed, well-nourished elderly appearing female who is awake, but somewhat confused and weak, in no acute distress. VITAL SIGNS: Stable. She is afebrile. T-max of 100. SKIN: Without generalized rash. HEENT: Within normal limits. NECK: Supple. LYMPH NODES: None palpable. CHEST: Decreased breath sounds at the bases. ABDOMEN: Soft, nontender without organosplenomegaly or masses HEART: Irregularly irregular rhythm, tachycardic, grade II/ systolic ejection murmur along the lef t sternal border. ABDOMEN: Soft, nontender, without organosplenomegaly or masses. EXTREMITIES: Without cyanosis, clubbing, or edema. RECTAL AND GENITAL: Deferred. NEUROLOGICAL: No focal neurological abnormality. HOSPITAL COURSE: Her white count on 08/13/2016 was 21.1 but on 08/14/2016, 16.8, H and H of 9 and 2 7.1, platelet count was 215,000. BUN and creatinine 67/0.73. Urine grew out 1+ leukocyte esterase, 10 to 25 white cells per high powered field. Her blood cultures grew out gram-positive cocci in cl usters x2. Her urine grew out gram-negative rods. IMAGING STUDIES: Her chest x-ray showed no evidence of acute cardiopulmonary disease. A Doppler st udy was negative and a CT scan of the brain showed no acute intracranial hemorrhage. Mild generaliz ed cerebral volume loss, minimal chronic microvascular changes. IMPRESSION AND PLAN: Gisela Leija is a 80-year-old female who comes in now with what appears to be urinary tract infection with sepsis. I am not sure why she has gram-positive cocci in her blood, bu t we probably should repeat the cultures. She is currently on vancomycin and I do not see that she is on cefepime or Zosyn, so we will add either imipenem or will probably treat her with vancomycin a nd imipenem until we get the results of her cultures back. I will dictate my findings to the hospit alist. Dictated By: JESSIE BOOKER MD, JD/TIN Conf#: [id number] DID#: [id number]
[2016-08-14] MEDS: Insulin NOVOLOG SS MILD Algorithm (SS with meals and bedtime) SC SCH ×2 (17:55→22:08)
[2016-08-14] MEDS: IMIPENEM-CILAST 500MG IV (PMX) 100 ML IVPB SCH (21:48)
[2016-08-14 22:11] LABS: HEMATOCRIT 26.4 % (37.0-47.0); HEMOGLOBIN 8.6 g/dl (12.0-16.0)
[2016-08-15] VITALS (11 sets, daily range): BP systolic 96–133; BP diastolic 53–65; PULSE 74–107; RESP 17–20
[2016-08-15] MEDS: morphine 2 MG INJ IV PRN (00:29)
[2016-08-15] MEDS ORDERED: ACCUCHECK AT 2AM (Patients on SS coverage) XX SCH (02:00)
[2016-08-15] MEDS: DILTIAZEM 30 MG TAB PO SCH (05:52)
[2016-08-15] MEDS: IMIPENEM-CILAST 500MG IV (PMX) 100 ML IVPB SCH ×3 (05:52→22:22)
[2016-08-15 07:20] LABS: EOSINOPHILS % 0.2 % (0.0-7.0); HEMATOCRIT 24.7 % (37.0-47.0); HEMOGLOBIN 8.2 g/dl (12.0-16.0); LYMPHOCYTES % 5.5 % (15.0-51.0); MEAN CORPUSCULAR HEMOGLOBIN 28.9 pg (29.0-33.0); MEAN CORPUSCULAR VOLUME 87.7 fl (82.0-101.0); MEAN PLATELET VOLUME 9.2 fl (7.4-10.4); MONOCYTE # 0.2 10^3/ul (0.3-0.9); NEUTROPHIL # 16.1 10^3/ul (1.6-7.5); NEUTROPHILS % 93.3 % (39.0-77.0); PLATELET COUNT 287 10^3/UL (140-440); RED BLOOD COUNT 2.82 10^6/ul (4.20-5.40); RED CELL DISTRIBUTION WIDTH 14.3 % (11.5-14.5); UNCORRECTED WBC 17.3 10^3/ul (4.8-10.8); WHITE BLOOD COUNT 17.3 10^3/ul (4.8-10.8)
[2016-08-15 07:22] LABS: CONDITION 1; LH ANALYZER COMMENTS 1
[2016-08-15 07:32] LABS: POTASSIUM 3.4 mmol/L (3.5-5.1)
[2016-08-15 07:35] LABS: CREATININE 0.77 mg/dl (0.44-1.00)
[2016-08-15 07:36] LABS: CALCIUM 7.3 mg/dl (8.4-10.2); MAGNESIUM 2.2 mg/dl (1.7-2.5); PHOSPHORUS 2.7 mg/dl (2.5-4.9)
--- NOTE | 2016-08-15 09:12 | GILP ---
DATE OF PROCEDURE: PROCEDURE PERFORMED: EGD with biopsy. INDICATION: A 80-year-old female undergoing this procedure for upper GI bleeding manifested in the form of hematemesis, and there was a significant drop in her hematocrit. INFORMED CONSENT: The risk of the procedure, related and unrelated complications, anesthetic risks, alternatives discussed. Informed consent was obtained. DESCRIPTION OF PROCEDURE: The patient was brought to the GI lab, sedated by Dr. Walters. After obtaini ng sedation, scope was passed with much ease into esophagus, which was grossly within normal limits. There was an esophageal tear at the GE junction consistent with diagnosis of Faye-Johnson tear. No sentinel clot or blood vessel identified. Stomach mucosa revealed chronic gastritis, and on retr oversion, there was a scar in the fundal area. This scar was from healing of the ulcer. No varicos e vein identified. Duodenum second part including ampulla appeared normal. There was Cristy gland hyperplasia identified in the bulb. Three biopsies randomly obtained from the stomach to rule out H pylori infection. Scope was then straightened out and removed with good patient tolerance. IMPRESSION: 1. Faye-Johnson tear. 2. Chronic gastritis. 3. Scar tissue in the fundal area from previous ulcer. 4. Nodular duodenitis. 5. Normal second part of the duodenum including ampulla. 6. Normal esophagus. 7. Z-line was at 38 cm. PLAN: Continue PPI. Will review the histopathology. Will treat nausea and vomiting either with Re glan or Zofran. Dictated By: CHANCE CASTILLO/TNI Conf#: [id number] DID#: [id number]
[2016-08-15] MEDS: PANTOPRAZOLE IV 80 MG in SOD CHLORIDE 0.9% 100 ML IV SCH ×2 (09:54→22:21)
[2016-08-15] MEDS: SOD CHLORIDE 0.9% 1,000 ML IV SCH (09:56)
[2016-08-15] MEDS: Insulin NOVOLOG SS MILD Algorithm (SS with meals and bedtime) SC SCH ×2 (10:29→12:38)
[2016-08-15] MEDS ORDERED: VANCOMYCIN 1.25 GM in SOD CHLORIDE 0.9% 250 ML IVPB SCH (12:00)
--- NOTE | 2016-08-15 13:18 | PN ---
Date/Time of Note Date/Time of Note DATE: 08/15/16 TIME: 13:18 Assessment/Plan VTE Prophylaxis VTE Prophylaxis Intervention: SCD's Lines/Catheters IV Catheter Type (from [facility]): Peripheral IV Urinary Cath still in place: Yes (INSERTED IN ER 08/13/16) Reason Cath still needed: other (indicate) Assessment/Plan Chief Complaint/Hosp Course 1. Upper gastrointestinal bleeding. The patient was evaluated by gastroenterology. Esophagogastroduodenoscopy revealed a Faye-Johnson tear, chronic gastritis, and nodular duodenitis. Continue proton pump inhibitors. 2. Atrial fibrillation with rapid ventricular response. Currently, the rate is controlled. No anticoagulation because of underlying gastrointestinal bleed. Cardiology following. 3. Sepsis with underlying gram-positive bacteremia and urinary tract infection. Continue antibiotics. Infectious disease is on the case. 4. Lactic acidosis, most probably secondary to #3. 5. Essential hypertension. Continue antihypertensives. 6. Peripheral vascular disease. Monitor for acute changes. Anticoagulation on hold because of current gastrointestinal bleed. 7. Dyslipidemia. Continue statins. Fasting lipid panel showing low HDL and low total cholesterol. 8. Type 2 diabetes mellitus. Hemoglobin A1c 9.8. Continue sliding scale insulin. 9. Left upper extremity edema. Left upper extremity venous Doppler study negative for any deep venous thrombosis. Continue elevation of left upper extremity. 10. Multiple pressure ulcers. Bilateral lower extremity chronic wound. Continue local wound care. Wound care consult. 11. Hyperthyroidism. Will involve endocrinology on the case. 12. Fluid, electrolytes and nutrition. Carbohydrate controlled, low- cholesterol diet. 13. DVT prophylaxis with serial sequential compression devices. No anticoagulation because of underlying GI bleed. 14. Gastrointestinal prophylaxis with proton pump inhibitors. PLAN: Continue antibiotics as per infectious diseases. Replete potassium. Will call endocrinology. Case discussed with Dr. Ying. Problems: Subjective 24 Hr Interval Summary Free Text/Dictation Patient remains afebrile. Exam/Review of Systems Vital Signs Vitals Vital Signs Date Time Temp Pulse Resp B/P Pulse Ox O2 Delivery O2 Flow Rate FiO2 08/15/16 12:40 102 08/15/16 12:12 97.9 18 133/61 96 08/14/16 13:19 Room Air 08/14/16 02:27 2.0 08/14/16 00:30 28 Intake and Output 08/14/16 08/14/16 08/15/16 15:00 23:00 07:00 Intake Total 1400 ml 1300 ml Output Total 1400 ml 550 ml Balance 0 ml 750 ml Exam GENERAL: This is a frail-looking elderly female lying in bed in no apparent distress. HEENT: Head normocephalic and atraumatic. Eyes: Anicteric sclerae. Conjunctivae clear. ENT: Nasal septum is midline. Oral mucosa is dry. NECK: Supple. No JVD noticed. RESPIRATORY: Bilaterally diminished breath sounds. No adventitious breath sounds. No use of accessory muscles of respiration. CARDIAC: Irregularly irregular rhythm. Systolic murmur. ABDOMEN: Soft, nontender and nondistended. Bowel sounds hypoactive in all 4 quadrants. GENITOURINARY: Deferred. EXTREMITIES: No cyanosis, no clubbing. Bilateral lower extremity 1 to 2+ pitting edema. Left upper extremity 2 to 3+ pitting edema. Left upper extremity tenderness upon palpation. Peripheral pulses are diminished. NEUROLOGIC: The patient is awake and alert and oriented x1 to 2. Results Result Diagram: 08/15/16 0600 08/15/16 0600 Results 24 hrs Laboratory Tests Test 08/14/16 13:51 08/14/16 15:55 08/14/16 17:10 08/14/16 17:52 Bedside Glucose 218 224 H Hematocrit 26.9 L Hemoglobin 8.7 L Free Thyroxine 2.40 H Thyroid Stimulating Hormone (TSH) 0.023 L Test 08/14/16 21:40 08/14/16 21:45 08/15/16 02:18 08/15/16 06:00 Bedside Glucose 209 199 Hematocrit 26.4 L 24.7 L Hemoglobin 8.6 L 8.2 L Anion Gap 16 Basophils # 0.0 Basophils % 0.0 Blood Morphology Comment Blood Urea Nitrogen 54 H Calcium Level 7.3 L Carbon Dioxide Level 19 L Chloride Level 111 H Creatinine 0.77 Eosinophils # 0.0 Eosinophils % 0.2 Glucose Level 176 Lymphocytes # 1.0 Lymphocytes % 5.5 L Magnesium Level 2.2 Mean Corpuscular Hemoglobin 28.9 L Mean Corpuscular Hemoglobin Concent 33.0 Mean Corpuscular Volume 87.7 Mean Platelet Volume 9.2 Monocytes # 0.2 L Monocytes % 1.0 Neutrophils # 16.1 H Neutrophils % 93.3 H Nucleated Red Blood Cells # 0.0 Nucleated Red Blood Cells % 0.0 Phosphorus Level 2.7 Platelet Count 287 # Potassium Level 3.4 L Red Blood Count 2.82 L Red Cell Distribution Width 14.3 Sodium Level 143 White Blood Count 17.3 H Test 08/15/16 07:50 08/15/16 12:35 Bedside Glucose 212 237 H Medications Medications Current Medications Sodium Chloride (NS) 1,000 ml @ 75 mls/hr [id number] IV Last administered on 08/15 09:56; Admin Dose 75 MLS/HR; Start 08/13/16 at 15:31 Lorazepam (Ativan) 0.5 mg Q6H PRN IV ANXIETY; Start 08/13/16 at 16:00 Ondansetron HCl (Zofran Inj) 4 mg Q6H PRN IV NAUSEA AND/OR VOMITING; Start 08/13 at 16:00 Nitroglycerin (Nitroglycerin (Sl Tab) 0.4 Mg) 1 tab Q5M PRN SL CHEST PAIN; Start 08/13/16 at 16:00 Acetaminophen (Tylenol Supp) 650 mg Q6H PRN [place] PAIN LEVEL 1-3 OR FEVER; Start 08/13/16 at 16:00 Morphine Sulfate (morphine) 2 mg Q4H PRN IV PAIN LEVEL 7-10 Last administered on 08/15/16 00:29; Admin Dose 2 MG; Start 08/13/16 at 16:00 Bisacodyl 5 mg 5 mg DAILY PRN PO CONSTIPATION; Start 08/13/16 at 16:00 Pantoprazole/ Sodium Chloride (Protonix Iv/NS) 100 ml @ 10 mls/hr Q10H IV Last administered on 08/15/16 09:54; Admin Dose 10 MLS/HR; Start 08/13/16 at 16: 00 Miscellaneous Information 1 ea NOTE XX ; Start 08/13/16 at 17:30 Glucose (Glutose) 15 gm Q15M PRN PO DECREASED GLUCOSE; Start 08/13/16 at 17:30 Glucose (Glutose) 22.5 gm Q15M PRN PO DECREASED GLUCOSE; Start 08/13/16 at 17:30 Dextrose (D50w Syringe) 25 ml Q15M PRN IV DECREASED GLUCOSE; Start 08/13/16 at 17:30 Dextrose (D50w Syringe) 50 ml Q15M PRN IV DECREASED GLUCOSE; Start 08/13/16 at 17:30 Glucagon (Glucagen) 1 mg Q15M PRN IM DECREASED GLUCOSE; Start 08/13/16 at 17:30 Glucose (Glutose) 15 gm Q15M PRN BUCCAL DECREASED GLUCOSE; Start 08/13/16 at 17: 30 Collagenase (Santyl) 1 applic DAILY TOP ; Start 08/14/16 at 09:00 Collagenase 1 applic 1 applic PRN PRN TOP WOUND CARE; Start 08/14/16 at 05:30 Vancomycin HCl/ Sodium Chloride (Vancocin/NS) 250 ml @ 83.333 mls/ hr Q24H IVPB Last administered on 08/15/16 12:42; Admin Dose 83.333 MLS/HR; Start 05/22 at 12:00 Diltiazem HCl 30 mg 30 mg Q8 PO Last administered on 08/15/16 05:52; Admin Dose 30 MG; Start 08/14/16 at 14:00 Imipenem/ Cilastatin Sodium (Primaxin 500 Mg/ 100 ml (Pmx)) 100 ml @ 100 mls/ hr Q8 IVPB Last administered on 08/15/16 05:52; Admin Dose 100 MLS/HR; Start 08/14/16 at 22:00 Diagnostic Test (Pha) (Accucheck) 1 ea 02 XX Last administered on 08/15/16 02: 22; Admin Dose 1 EA; Start 08/15/16 at 02:00 Mupirocin (Bactroban) 1 applic BID TOP ; Start 08/15/16 at 13:00 DANN HAY NP Aug 15, 2016 13:18
[2016-08-15] MEDS ORDERED: POTASSIUM CHLORIDE (SR) 20 MEQ TAB PO STA (13:24)
[2016-08-15] MEDS: MUPIROCIN 2% 22 GM OINT TOP SCH (13:42)
[2016-08-15] MEDS: COLLAGENASE 30 GM TUBE TOP SCH (13:42)
[2016-08-15] MEDS: METHIMAZOLE 5 MG TAB PO SCH (15:29)
[2016-08-15] MEDS: METOPROLOL 50 MG TAB PO SCH ×2 (15:30→23:00)
--- NOTE | 2016-08-15 16:37 | PN ---
DATE: 08/15/2016 SUBJECTIVE: No events overnight. The patient is alert, eating lunch, looks comfortable, no fevers. WBC today 17.3 with H and H 8.2 and 24.7, platelets 287, neutrophils 93.3, BUN 54, creatinine 0.77. MICROBIOLOGY: Blood culture preliminary growing Staphylococcus aureus. Urine culture growing E. co li and Staphylococcus aureus. Nares swab positive for MRSA. Repeat blood cultures preliminary stil l positive for gram-positive cocci. Influenza swab negative. INDWELLINGS: Lundy catheter. ANTIMICROBIALS: The patient is on: 1. IV vancomycin 2. Imipenem. 3. Topical Bactroban to nares. DIAGNOSTICS: Left upper extremity ultrasound revealed no evidence of a DVT. CT of the brain on adm ission revealed no acute intracranial pathology. PHYSICAL EXAMINATION: GENERAL: This is a fragile, chronically ill-appearing, elderly woman who is awake, in no distress. HEENT: Head atraumatic, normocephalic. Sclerae anicteric. Buccal mucosa dry. NECK: Supple. CHEST: Rise symmetrical. Breath sounds clear. HEART: S1, S2. ABDOMEN: Soft. Bowel tones present. EXTREMITIES: With left upper extremity edema, slightly erythematous at the upper part of the arm. Bilateral lower extremities with unstageable decubitus on her heels. ASSESSMENT: 1. Sepsis with Staphylococcus aureus bacteremia, possibly methicillin-resistant Staphylococcus leslie us. 2. Polymicrobial urinary tract infection. 3. Methicillin-resistant Staphylococcus aureus nares colonization. 4. Bilateral diabetic ulcerations of heels, right more than left, possible osteomyelitis. 5. Anemia with a history of hematemesis status post esophagogastroduodenoscopy that revealed Mallor y-Johnson tear and chronic gastritis. 6. Coronary artery disease with a history of atrial fibrillation and congestive heart failure. 7. History of cerebrovascular accident. PLAN: The patient remains hemodynamically stable. Etiology of her bacteremia could be secondary to urinary tract infection versus chronic wounds. She is covered with appropriate antimicrobials. A 2D echo was done on admission and read by Dr. Lozada, and there is no evidence for vegetations. We wi ll continue her on current antimicrobials, keep left upper extremity elevated, wait for final blood cultures. Continue Bactroban to nares. Consider podiatry evaluation and send wound for cultures. Dictated By: DEMAR VILLALOBOS LAYOUT ARTIST for JESSIE LYMAN/TIN Conf#: [id number] DID#: [id number]
[2016-08-15] MEDS: INSULIN ASPART [NOVOLOG] 3 ML PEN SC SCH ×3 (17:50→21:00)
--- NOTE | 2016-08-15 18:17 | CONS ---
Date/Time of Note Date/Time of Note DATE: 08/15/16 TIME: 18:10 Assessment/Plan Assessment/Plan Problems: (1) Hyperthyroidism Status: Acute Comment: This was not known at at [facility]. It is unclear what the duration is and I do not have access to their labs. Either way with a suppressed TSH and an elevated free T4 I do not believe this is euthyroid sick. As such she will be treated aggressively to bring her TSH and free T4 down into normal range. She is already had her diltiazem replaced with metoprolol which be more appropriate for several of the reasons that she is here and will have methimazole as a baseline but will have 1 day of PTU to help bring things down quickly. She does not need to be treated with IV iodine therapy she does not need dexamethasone (2) Faye-Johnson tear Status: Acute Comment: She is just had upper endoscopy which has found a Faye-Johnson tear. Dr. Haddad has very kindly written for the appropriate medical therapy. (3) Severe sepsis Status: Acute Comment: She is extremely ill and uncinate worried about her overall status (4) UTI (urinary tract infection) Status: Acute Comment: She is on multiple antibiotics for the sepsis syndrome she has. Please note her blood cultures are positive not for what in the urine. Please look at her arm Qualifiers: Qualified Code: N30.00 - Acute cystitis without hematuria (5) Diabetes mellitus type 2 in obese Status: Chronic Comment: She is on diabetic regimen to try and control. At the outpatient setting she was on sulfonylurea with insulin therapy. This can be adjusted Consultation Date/Type/Reason Admit Date/Time 08/13/2016, 4:48 pm Date of Consultation: Aug 15, 2016 Type of Consultation: Endocrinology Reason for Consultation Suppressed TSH with elevated free T4 in the setting of A. fib with rapid ventricular response. Please note the patient has several other significant active medical issues Referring Provider: SÁNCHEZ WOMACK MD Hx of Present Illness 80-year-old female who is a resident of [facility] rehab. She was transferred for declining status. Please note I attempted to speak to the [facility] at the [facility] to clarify her medication list. The medication list that accompanied the patient does not have any type of thyroid hormone replacement therapy or any type of antithyroid drugs. She has a suppressed TSH with an elevated free T4 in the setting of extreme medical illness. Subjective hx not possible: pt non-verbal Past Medical History Medical History: congestive heart failure, coronary artery disease, diabetes, high cholesterol, hypertension Family History Significant Family History: no pertinent family hx Social History Alcohol Use: none Smoking Status: Never smoker Drug Use: none Exam/Review of Systems Vital Signs Vitals Vital Signs Date Time Temp Pulse Resp B/P Pulse Ox O2 Delivery O2 Flow Rate FiO2 08/15/16 16:23 97.5 94 17 121/58 96 08/14/16 13:19 Room Air 08/14/16 02:27 2.0 08/14/16 00:30 28 Intake and Output 08/14/16 08/14/16 08/15/16 15:00 23:00 07:00 Intake Total 1400 ml 1300 ml Output Total 1400 ml 550 ml Balance 0 ml 750 ml Exam Constitutional: non-verbal Neck: non-tender, supple, thyromegaly (No nodules but enlarged thyroid gland) Respiratory: clear to auscultation, normal air movement Gastrointestinal: nl liver, spleen, non-tender, soft Extremities: other (Left upper extremity markedly edematous and red and warm to touch) Results Result Diagram: 08/15/16 0600 08/15/16 0600 Results 24 hrs Laboratory Tests Test 08/14/16 21:40 08/14/16 21:45 08/15/16 02:18 08/15/16 06:00 Bedside Glucose 209 199 Hematocrit 26.4 L 24.7 L Hemoglobin 8.6 L 8.2 L Anion Gap 16 Basophils # 0.0 Basophils % 0.0 Blood Morphology Comment Blood Urea Nitrogen 54 H Calcium Level 7.3 L Carbon Dioxide Level 19 L Chloride Level 111 H Creatinine 0.77 Eosinophils # 0.0 Eosinophils % 0.2 Glucose Level 176 Lymphocytes # 1.0 Lymphocytes % 5.5 L Magnesium Level 2.2 Mean Corpuscular Hemoglobin 28.9 L Mean Corpuscular Hemoglobin Concent 33.0 Mean Corpuscular Volume 87.7 Mean Platelet Volume 9.2 Monocytes # 0.2 L Monocytes % 1.0 Neutrophils # 16.1 H Neutrophils % 93.3 H Nucleated Red Blood Cells # 0.0 Nucleated Red Blood Cells % 0.0 Phosphorus Level 2.7 Platelet Count 287 # Potassium Level 3.4 L Red Blood Count 2.82 L Red Cell Distribution Width 14.3 Sodium Level 143 White Blood Count 17.3 H Test 08/15/16 07:50 08/15/16 12:35 08/15/16 17:47 Bedside Glucose 212 237 H 249 H Medications Medications Current Medications Sodium Chloride (NS) 1,000 ml @ 75 mls/hr [id number] IV Last administered on 08/15 09:56; Admin Dose 75 MLS/HR; Start 08/13/16 at 15:31 Lorazepam (Ativan) 0.5 mg Q6H PRN IV ANXIETY; Start 08/13/16 at 16:00 Ondansetron HCl (Zofran Inj) 4 mg Q6H PRN IV NAUSEA AND/OR VOMITING; Start 08/13 at 16:00 Nitroglycerin (Nitroglycerin (Sl Tab) 0.4 Mg) 1 tab Q5M PRN SL CHEST PAIN; Start 08/13/16 at 16:00 Acetaminophen (Tylenol Supp) 650 mg Q6H PRN [place] PAIN LEVEL 1-3 OR FEVER; Start 08/13/16 at 16:00 Morphine Sulfate (morphine) 2 mg Q4H PRN IV PAIN LEVEL 7-10 Last administered on 08/15/16 00:29; Admin Dose 2 MG; Start 08/13/16 at 16:00 Bisacodyl 5 mg 5 mg DAILY PRN PO CONSTIPATION; Start 08/13/16 at 16:00 Pantoprazole/ Sodium Chloride (Protonix Iv/NS) 100 ml @ 10 mls/hr Q10H IV Last administered on 08/15/16 09:54; Admin Dose 10 MLS/HR; Start 08/13/16 at 16: 00 Miscellaneous Information 1 ea NOTE XX ; Start 08/13/16 at 17:30 Glucose (Glutose) 15 gm Q15M PRN PO DECREASED GLUCOSE; Start 08/13/16 at 17:30 Glucose (Glutose) 22.5 gm Q15M PRN PO DECREASED GLUCOSE; Start 08/13/16 at 17:30 Dextrose (D50w Syringe) 25 ml Q15M PRN IV DECREASED GLUCOSE; Start 08/13/16 at 17:30 Dextrose (D50w Syringe) 50 ml Q15M PRN IV DECREASED GLUCOSE; Start 08/13/16 at 17:30 Glucagon (Glucagen) 1 mg Q15M PRN IM DECREASED GLUCOSE; Start 08/13/16 at 17:30 Glucose (Glutose) 15 gm Q15M PRN BUCCAL DECREASED GLUCOSE; Start 08/13/16 at 17: 30 Collagenase (Santyl) 1 applic DAILY TOP Last administered on 08/15/16 13:42; Admin Dose 1 APPLIC; Start 08/14/16 at 09:00 Collagenase 1 applic 1 applic PRN PRN TOP WOUND CARE; Start 08/14/16 at 05:30 Vancomycin HCl 1.25 gm/Sodium Chloride 250 ml @ 83.333 mls/ hr Q24H IVPB Last administered on 08/15/16 12:42; Admin Dose 83.333 MLS/HR; Start 08/15/16 at 12: 00 Imipenem/ Cilastatin Sodium (Primaxin 500 Mg/ 100 ml (Pmx)) 100 ml @ 100 mls/ hr Q8 IVPB Last administered on 08/15/16 15:05; Admin Dose 100 MLS/HR; Start 08/14/16 at 22:00 Mupirocin (Bactroban) 1 applic BID TOP Last administered on 08/15/16 13:42; Admin Dose 1 APPLIC; Start 08/15/16 at 13:00 Atorvastatin Calcium (Lipitor) 10 mg QHS PO ; Start 08/15/16 at 21:00 Metoprolol Tartrate (Lopressor) 50 mg BID PO Last administered on 08/15/16 15: 30; Admin Dose 50 MG; Start 08/15/16 at 15:00 Insulin Glargine (Lantus) 16 unit HS SC ; Start 08/15/16 at 21:00 Diagnostic Test (Pha) (Accucheck) 1 ea 02 XX ; Start 08/16/16 at 02:00 Methimazole (Tapazole) 20 mg DAILY PO Last administered on 08/15/16 15:29; Admin Dose 20 MG; Start 08/15/16 at 15:00 MINNIE GILES MD Aug 15, 2016 18:17
[2016-08-15] MEDS ORDERED: INSULIN GLARGINE [LANtus] 3 ML PEN SC SCH (21:00)
--- NOTE | 2016-08-15 21:03 | CONS ---
Date/Time of Note Date/Time of Note DATE: 08/15/16 TIME: 20:59 Assessment/Plan Assessment/Plan Additional Assessment/Plan ASSESSMENT: 1. Sepsis with Staphylococcus aureus bacteremia, possibly methicillin- resistant Staphylococcus aureus. 2. Polymicrobial urinary tract infection. 3. Methicillin-resistant Staphylococcus aureus nares colonization. 4. Bilateral diabetic ulcerations of heels, right more than left, possible osteomyelitis. 5. Anemia with a history of hematemesis status post esophagogastroduodenoscopy that revealed Faye-Johnson tear and chronic gastritis. 6. Coronary artery disease with a history of atrial fibrillation and congestive heart failure. 7. History of cerebrovascular accident. 8.diabetes Plan continue PPI antiemetic monitor H&H refrain from blood thinner Consultation Date/Type/Reason Admit Date/Time Aug 14, 2016 at 01:54 Initial Consult Date 08/15/16 Type of Consultation: Endocrinology Referring Provider: SÁNCHEZ WOMACK MD 24 HR Interval Summary Free Text/Dictation no emesis no abdominal pain Constitutional: improved Exam/Review of Systems Vital Signs Vitals Vital Signs Date Time Temp Pulse Resp B/P Pulse Ox O2 Delivery O2 Flow Rate FiO2 08/15/16 20:45 97.9 65 20 96/53 98 08/14/16 13:19 Room Air 08/14/16 02:27 2.0 08/14/16 00:30 28 Intake and Output 08/14/16 08/14/16 08/15/16 15:00 23:00 07:00 Intake Total 1400 ml 1300 ml Output Total 1400 ml 550 ml Balance 0 ml 750 ml Exam Constitutional: alert, oriented, well developed Psych: nl mood/affect, no complaints Head: atraumatic, normocephalic Eyes: EOMI, PERRL, nl conjunctiva, nl lids, nl sclera ENMT: nl external ears & nose, nl lips & teeth, nl nasal mucosa & septum Neck: non-tender, supple Respiratory: clear to auscultation, normal air movement Cardiovascular: nl pulses, regular rate and rhythm Gastrointestinal: nl liver, spleen, non-tender, soft Musculoskeletal: nl extremities to inspection, nl gait and stance Extremities: normal pulses Neurological: LOCOMOTIVE OILER II-XII intact, nl mental status, nl speech, nl strength Skin: nl turgor, No rash or lesions Lymph: nl lymph nodes Results Result Diagram: 08/15/16 0600 08/15/16 0600 Results 24 hrs Laboratory Tests Test 08/14/16 21:40 08/14/16 21:45 08/15/16 02:18 08/15/16 06:00 Bedside Glucose 209 199 Hematocrit 26.4 L 24.7 L Hemoglobin 8.6 L 8.2 L Anion Gap 16 Basophils # 0.0 Basophils % 0.0 Blood Morphology Comment Blood Urea Nitrogen 54 H Calcium Level 7.3 L Carbon Dioxide Level 19 L Chloride Level 111 H Creatinine 0.77 Eosinophils # 0.0 Eosinophils % 0.2 Glucose Level 176 Lymphocytes # 1.0 Lymphocytes % 5.5 L Magnesium Level 2.2 Mean Corpuscular Hemoglobin 28.9 L Mean Corpuscular Hemoglobin Concent 33.0 Mean Corpuscular Volume 87.7 Mean Platelet Volume 9.2 Monocytes # 0.2 L Monocytes % 1.0 Neutrophils # 16.1 H Neutrophils % 93.3 H Nucleated Red Blood Cells # 0.0 Nucleated Red Blood Cells % 0.0 Phosphorus Level 2.7 Platelet Count 287 # Potassium Level 3.4 L Red Blood Count 2.82 L Red Cell Distribution Width 14.3 Sodium Level 143 White Blood Count 17.3 H Test 08/15/16 07:50 08/15/16 12:35 08/15/16 17:47 Bedside Glucose 212 237 H 249 H Medications Medications Current Medications Sodium Chloride (NS) 1,000 ml @ 75 mls/hr [id number] IV Last administered on 08/15 09:56; Admin Dose 75 MLS/HR; Start 08/13/16 at 15:31 Lorazepam (Ativan) 0.5 mg Q6H PRN IV ANXIETY; Start 08/13/16 at 16:00 Ondansetron HCl (Zofran Inj) 4 mg Q6H PRN IV NAUSEA AND/OR VOMITING; Start 08/13 at 16:00 Nitroglycerin (Nitroglycerin (Sl Tab) 0.4 Mg) 1 tab Q5M PRN SL CHEST PAIN; Start 08/13/16 at 16:00 Acetaminophen (Tylenol Supp) 650 mg Q6H PRN [place] PAIN LEVEL 1-3 OR FEVER; Start 08/13/16 at 16:00 Morphine Sulfate (morphine) 2 mg Q4H PRN IV PAIN LEVEL 7-10 Last administered on 08/15/16 00:29; Admin Dose 2 MG; Start 08/13/16 at 16:00 Bisacodyl 5 mg 5 mg DAILY PRN PO CONSTIPATION; Start 08/13/16 at 16:00 Pantoprazole/ Sodium Chloride (Protonix Iv/NS) 100 ml @ 10 mls/hr Q10H IV Last administered on 08/15/16 09:54; Admin Dose 10 MLS/HR; Start 08/13/16 at 16: 00 Miscellaneous Information 1 ea NOTE XX ; Start 08/13/16 at 17:30 Glucose (Glutose) 15 gm Q15M PRN PO DECREASED GLUCOSE; Start 08/13/16 at 17:30 Glucose (Glutose) 22.5 gm Q15M PRN PO DECREASED GLUCOSE; Start 08/13/16 at 17:30 Dextrose (D50w Syringe) 25 ml Q15M PRN IV DECREASED GLUCOSE; Start 08/13/16 at 17:30 Dextrose (D50w Syringe) 50 ml Q15M PRN IV DECREASED GLUCOSE; Start 08/13/16 at 17:30 Glucagon (Glucagen) 1 mg Q15M PRN IM DECREASED GLUCOSE; Start 08/13/16 at 17:30 Glucose (Glutose) 15 gm Q15M PRN BUCCAL DECREASED GLUCOSE; Start 08/13/16 at 17: 30 Collagenase (Santyl) 1 applic DAILY TOP Last administered on 08/15/16 13:42; Admin Dose 1 APPLIC; Start 08/14/16 at 09:00 Collagenase 1 applic 1 applic PRN PRN TOP WOUND CARE; Start 08/14/16 at 05:30 Vancomycin HCl 1.25 gm/Sodium Chloride 250 ml @ 83.333 mls/ hr Q24H IVPB Last administered on 08/15/16 12:42; Admin Dose 83.333 MLS/HR; Start 08/15/16 at 12: 00 Imipenem/ Cilastatin Sodium (Primaxin 500 Mg/ 100 ml (Pmx)) 100 ml @ 100 mls/ hr Q8 IVPB Last administered on 08/15/16 15:05; Admin Dose 100 MLS/HR; Start 08/14/16 at 22:00 Mupirocin (Bactroban) 1 applic BID TOP Last administered on 08/15/16 13:42; Admin Dose 1 APPLIC; Start 08/15/16 at 13:00 Atorvastatin Calcium (Lipitor) 10 mg QHS PO ; Start 08/15/16 at 21:00 Metoprolol Tartrate (Lopressor) 50 mg BID PO Last administered on 08/15/16 15: 30; Admin Dose 50 MG; Start 08/15/16 at 15:00 Diagnostic Test (Pha) (Accucheck) 1 ea 02 XX ; Start 08/16/16 at 02:00 Methimazole (Tapazole) 20 mg DAILY PO Last administered on 08/15/16 15:29; Admin Dose 20 MG; Start 08/15/16 at 15:00 Insulin Glargine (Lantus) 22 unit HS SC ; Start 08/15/16 at 21:00 Propylthiouracil (Ptu) 200 mg TID PO ; Start 08/15/16 at 21:00; Stop 08/16/16 at 20:59 Linagliptin (Tradjenta) 5 mg DAILY PO ; Start 08/15/16 at 18:30 CHANCE QUEZADA MD Aug 15, 2016 21:03
--- NOTE | 2016-08-15 21:18 | CONS ---
DATE OF ADMISSION: 08/14/2016 DATE OF CONSULTATION: 08/14/2016 REASON FOR CONSULTATION: GI bleeding. REFERRING PHYSICIAN: Dr. Womack Dear Dr. Womack: HISTORY OF PRESENT ILLNESS: Thank you for asking me to evaluate the patient who is a 80-year-old fe male with a history of CVA, hypertension, CHF, atrial fibrillation, dyslipidemia, anxiety, came to [facility] emergency room because of weakness and a few episodes of hematemesis. The patient also complains of abdominal discomfort. No melena. No chest pain, no shortness of breath. When she was in the E R today, rapid ventricular response; however, when she came to the floor after Cardizem drip and a l oading dose, it came down to 90 per minute. The patient denies any fever or weight loss. PAST MEDICAL HISTORY: Peripheral vascular disease, dyslipidemia, diastolic dysfunction, CVA, hypert ension, and diabetes mellitus. PAST SURGICAL HISTORY: . FAMILY HISTORY: Nothing significant. SOCIAL HISTORY: Does not smoke or drink. PHYSICAL EXAMINATION GENERAL: Alert, awake, not in distress. VITAL SIGNS: Stable. HEENT: Unremarkable. NECK: Supple. No thyromegaly, no lymphadenopathy. CARDIOVASCULAR: No murmur, gallop, or click. LUNGS: Clear. ABDOMEN: Benign. EXTREMITIES: 1+ pitting edema. LABORATORY DATA: WBC was 16.8, hematocrit 27. IMPRESSION: 1. Upper gastrointestinal bleeding, rule out peptic ulcer disease, rule out Faye-Johnson tear, rul e out gastroesophageal reflux disease. 2. Hypertension. 3. Cerebrovascular accident. 4. Diabetes mellitus. 5. Hypothyroidism. 6. Anemia. 7. Sepsis with positive blood culture. 8. Urinary tract infection. PLAN: At this point, is to continue PPI. Monitor H and H closely. Continue IV fluids. Continue a ntibiotic as per ID and the patient has been cleared by the hospitalist for EGD, so we will proceed with that. Dictated By: CHANCE CASTILLO/TIN Conf#: [id number] DID#: [id number] CC: SÁNCHEZ WOMACK MD; CHANCE QUEZADA MD;*EndCC*
[2016-08-15] MEDS: ATORVASTATIN 10 MG TAB PO SCH (21:33)
[2016-08-15] MEDS: PROPYLTHIOURACIL 50 MG TAB PO SCH (21:34)
[2016-08-15] MEDS: INSULIN GLARGINE [LANtus] 3 ML PEN SC SCH (21:44)
--- NOTE | 2016-08-15 21:48 | CONS ---
Date/Time of Note Date/Time of Note DATE: 08/15/16 TIME: 21:44 Assessment/Plan Assessment/Plan Additional Assessment/Plan SIRS with positive blood cultures Atrial fibrillation with rapid ventricular rates, improved Preserved ejection fraction Hyperthyroidism History of congestive heart failure History of hypertension History of CVA Possible GI bleed Diabetes -Patient with hyperthyroidism and abnormal TFTs, Cardizem has been switched to beta sha. Would continue as blood pressure permits. Continue IV fluids, atrial fibrillation with controlled ventricular rates. Antibiotics as per our infectious disease colleagues. Consultation Date/Type/Reason Admit Date/Time Aug 14, 2016 at 01:54 Initial Consult Date 08/15/16 Type of Consultation: cv Referring Provider: SÁNCHEZ WOMACK MD 24 HR Interval Summary Free Text/Dictation Patient denies shortness of breath, chest pain or palpitations, feeling better Exam/Review of Systems Vital Signs Vitals Vital Signs Date Time Temp Pulse Resp B/P Pulse Ox O2 Delivery O2 Flow Rate FiO2 08/15/16 20:45 97.9 65 20 96/53 98 08/14/16 13:19 Room Air 08/14/16 02:27 2.0 08/14/16 00:30 28 Intake and Output 08/14/16 08/14/16 08/15/16 15:00 23:00 07:00 Intake Total 1400 ml 1300 ml Output Total 1400 ml 550 ml Balance 0 ml 750 ml Exam Eating lunch, no apparent distress Constitutional: alert Head: normocephalic Neck: supple Respiratory: other (sounds bilaterally, no wheezing) Cardiovascular: irregular rhythm, other (S1 and S2 heard) Gastrointestinal: bowel sounds, non-tender, soft Extremities: edema Results Result Diagram: 08/15/16 0600 08/15/16 0600 Results 24 hrs Laboratory Tests Test 08/14/16 21:45 08/15/16 02:18 08/15/16 06:00 08/15/16 07:50 Hematocrit 26.4 L 24.7 L Hemoglobin 8.6 L 8.2 L Bedside Glucose 199 212 Anion Gap 16 Basophils # 0.0 Basophils % 0.0 Blood Morphology Comment Blood Urea Nitrogen 54 H Calcium Level 7.3 L Carbon Dioxide Level 19 L Chloride Level 111 H Creatinine 0.77 Eosinophils # 0.0 Eosinophils % 0.2 Glucose Level 176 Lymphocytes # 1.0 Lymphocytes % 5.5 L Magnesium Level 2.2 Mean Corpuscular Hemoglobin 28.9 L Mean Corpuscular Hemoglobin Concent 33.0 Mean Corpuscular Volume 87.7 Mean Platelet Volume 9.2 Monocytes # 0.2 L Monocytes % 1.0 Neutrophils # 16.1 H Neutrophils % 93.3 H Nucleated Red Blood Cells # 0.0 Nucleated Red Blood Cells % 0.0 Phosphorus Level 2.7 Platelet Count 287 # Potassium Level 3.4 L Red Blood Count 2.82 L Red Cell Distribution Width 14.3 Sodium Level 143 White Blood Count 17.3 H Test 08/15/16 12:35 08/15/16 17:47 Bedside Glucose 237 H 249 H Medications Medications Current Medications Sodium Chloride (NS) 1,000 ml @ 75 mls/hr [id number] IV Last administered on 08/15 09:56; Admin Dose 75 MLS/HR; Start 08/13/16 at 15:31 Lorazepam (Ativan) 0.5 mg Q6H PRN IV ANXIETY; Start 08/13/16 at 16:00 Ondansetron HCl (Zofran Inj) 4 mg Q6H PRN IV NAUSEA AND/OR VOMITING; Start 08/13 at 16:00 Nitroglycerin (Nitroglycerin (Sl Tab) 0.4 Mg) 1 tab Q5M PRN SL CHEST PAIN; Start 08/13/16 at 16:00 Acetaminophen (Tylenol Supp) 650 mg Q6H PRN [place] PAIN LEVEL 1-3 OR FEVER; Start 08/13/16 at 16:00 Morphine Sulfate (morphine) 2 mg Q4H PRN IV PAIN LEVEL 7-10 Last administered on 08/15/16 00:29; Admin Dose 2 MG; Start 08/13/16 at 16:00 Bisacodyl 5 mg 5 mg DAILY PRN PO CONSTIPATION; Start 08/13/16 at 16:00 Pantoprazole/ Sodium Chloride (Protonix Iv/NS) 100 ml @ 10 mls/hr Q10H IV Last administered on 08/15/16 09:54; Admin Dose 10 MLS/HR; Start 08/13/16 at 16: 00 Miscellaneous Information 1 ea NOTE XX ; Start 08/13/16 at 17:30 Glucose (Glutose) 15 gm Q15M PRN PO DECREASED GLUCOSE; Start 08/13/16 at 17:30 Glucose (Glutose) 22.5 gm Q15M PRN PO DECREASED GLUCOSE; Start 08/13/16 at 17:30 Dextrose (D50w Syringe) 25 ml Q15M PRN IV DECREASED GLUCOSE; Start 08/13/16 at 17:30 Dextrose (D50w Syringe) 50 ml Q15M PRN IV DECREASED GLUCOSE; Start 08/13/16 at 17:30 Glucagon (Glucagen) 1 mg Q15M PRN IM DECREASED GLUCOSE; Start 08/13/16 at 17:30 Glucose (Glutose) 15 gm Q15M PRN BUCCAL DECREASED GLUCOSE; Start 08/13/16 at 17: 30 Collagenase (Santyl) 1 applic DAILY TOP Last administered on 08/15/16 13:42; Admin Dose 1 APPLIC; Start 08/14/16 at 09:00 Collagenase 1 applic 1 applic PRN PRN TOP WOUND CARE; Start 08/14/16 at 05:30 Vancomycin HCl 1.25 gm/Sodium Chloride 250 ml @ 83.333 mls/ hr Q24H IVPB Last administered on 08/15/16 12:42; Admin Dose 83.333 MLS/HR; Start 08/15/16 at 12: 00 Imipenem/ Cilastatin Sodium (Primaxin 500 Mg/ 100 ml (Pmx)) 100 ml @ 100 mls/ hr Q8 IVPB Last administered on 08/15/16 15:05; Admin Dose 100 MLS/HR; Start 08/14/16 at 22:00 Mupirocin (Bactroban) 1 applic BID TOP Last administered on 08/15/16 13:42; Admin Dose 1 APPLIC; Start 08/15/16 at 13:00 Atorvastatin Calcium (Lipitor) 10 mg QHS PO Last administered on 08/15/16 21: 33; Admin Dose 10 MG; Start 08/15/16 at 21:00 Metoprolol Tartrate (Lopressor) 50 mg BID PO Last administered on 08/15/16 15: 30; Admin Dose 50 MG; Start 08/15/16 at 15:00 Diagnostic Test (Pha) (Accucheck) 1 ea 02 XX ; Start 08/16/16 at 02:00 Methimazole (Tapazole) 20 mg DAILY PO Last administered on 08/15/16 15:29; Admin Dose 20 MG; Start 08/15/16 at 15:00 Insulin Glargine (Lantus) 22 unit HS SC ; Start 08/15/16 at 21:00 Propylthiouracil (Ptu) 200 mg TID PO Last administered on 08/15/16t 21:34; Admin Dose 200 MG; Start 08/15/16 at 21:00; Stop 08/16/16 at 20:59 Linagliptin (Tradjenta) 5 mg DAILY PO ; Start 08/15/16 at 18:30 Shawn Lozada DO Aug 15, 2016 21:48
[2016-08-15] MEDS: LINAGLIPTIN 5 MG TABLET PO SCH (22:21)
[2016-08-16] VITALS (13 sets, daily range): BP systolic 109–137; BP diastolic 51–85; PULSE 82–103; RESP 16–20
[2016-08-16] MEDS: MUPIROCIN 2% 22 GM OINT TOP SCH ×3 (01:46→21:14)
[2016-08-16] MEDS: ACCUCHECK XX SCH (02:00)
[2016-08-16] MEDS: SOD CHLORIDE 0.9% 1,000 ML IV SCH ×3 (02:12→15:43)
[2016-08-16] MEDS: morphine 2 MG INJ IV PRN ×3 (03:50→15:42)
[2016-08-16] MEDS: PANTOPRAZOLE IV 80 MG in SOD CHLORIDE 0.9% 100 ML IV SCH ×2 (04:00→15:42)
[2016-08-16] MEDS: IMIPENEM-CILAST 500MG IV (PMX) 100 ML IVPB SCH (06:00)
[2016-08-16] MEDS: INSULIN ASPART [NOVOLOG] 3 ML PEN SC SCH ×7 (07:55→21:28)
[2016-08-16 07:56] LABS: BASOPHILS % 0.2 % (0.0-2.0); EOSINOPHILS # 0.1 10^3/ul (0.0-0.5); EOSINOPHILS % 0.6 % (0.0-7.0); HEMATOCRIT 23.6 % (37.0-47.0); HEMOGLOBIN 7.8 g/dl (12.0-16.0); LYMPHOCYTES # 1.2 10^3/ul (0.8-2.9); LYMPHOCYTES % 7.3 % (15.0-51.0); MEAN CORPUSCULAR HEMOGLOBIN 28.6 pg (29.0-33.0); MEAN CORPUSCULAR HGB CONC 33.1 g/dl (32.0-37.0); MEAN CORPUSCULAR VOLUME 86.4 fl (82.0-101.0); MEAN PLATELET VOLUME 8.8 fl (7.4-10.4); MONOCYTE # 0.3 10^3/ul (0.3-0.9); MONOCYTES % 1.9 % (0.0-11.0); NEUTROPHIL # 14.9 10^3/ul (1.6-7.5); PLATELET COUNT 294 10^3/UL (140-440); RED BLOOD COUNT 2.73 10^6/ul (4.20-5.40); RED CELL DISTRIBUTION WIDTH 14.5 % (11.5-14.5); UNCORRECTED WBC 16.6 10^3/ul (4.8-10.8); WHITE BLOOD COUNT 16.6 10^3/ul (4.8-10.8)
[2016-08-16 07:59] LABS: CONDITION 1; LH ANALYZER COMMENTS 1
[2016-08-16 08:10] LABS: CREATININE 0.62 mg/dl (0.44-1.00); MAGNESIUM 1.9 mg/dl (1.7-2.5); PHOSPHORUS 2.8 mg/dl (2.5-4.9)
[2016-08-16 08:11] LABS: CALCIUM 7.3 mg/dl (8.4-10.2)
[2016-08-16] MEDS: COLLAGENASE 30 GM TUBE TOP SCH (09:00)
[2016-08-16] MEDS ORDERED: LIDOCAINE 1% (MDV) 20 ML INJ SC ONE (10:00)
[2016-08-16] MEDS: METHIMAZOLE 5 MG TAB PO SCH (10:14)
[2016-08-16] MEDS: PROPYLTHIOURACIL 50 MG TAB PO SCH ×2 (10:14→12:46)
[2016-08-16] MEDS: LINAGLIPTIN 5 MG TABLET PO SCH (10:14)
--- NOTE | 2016-08-16 11:41 | PN ---
Date/Time of Note Date/Time of Note DATE: 08/16/16 TIME: 11:39 Assessment/Plan VTE Prophylaxis VTE Prophylaxis Intervention: SCD's Lines/Catheters IV Catheter Type ([facility] Peripheral IV Urinary Cath still in place: Yes (INSERTED IN ER 08/13/16) Reason Cath still needed: skin wounds contaminated by urine Assessment/Plan Chief Complaint/Hosp Course 1. Upper gastrointestinal bleeding. The patient was evaluated by gastroenterology. Esophagogastroduodenoscopy revealed a Faye-Johnson tear, chronic gastritis, and nodular duodenitis. Continue proton pump inhibitors. 2. Atrial fibrillation with rapid ventricular response. Currently, the rate is controlled. No anticoagulation because of underlying gastrointestinal bleed. Cardiology following. 3. Sepsis with underlying MRSA bacteremia and urinary tract infection. Continue antibiotics. Infectious disease is on the case. 4. Lactic acidosis, most probably secondary to #3. 5. Essential hypertension. Continue antihypertensives. 6. Peripheral vascular disease. Monitor for acute changes. Anticoagulation on hold because of current gastrointestinal bleed. 7. Dyslipidemia. Continue statins. Fasting lipid panel showing low HDL and low total cholesterol. 8. Type 2 diabetes mellitus. Hemoglobin A1c 9.8. Continue sliding scale insulin. 9. Left upper extremity edema. Left upper extremity venous Doppler study negative for any deep venous thrombosis. Continue elevation of left upper extremity. 10. Multiple pressure ulcers. Continue local wound care. Wound care consult. 11. Hyperthyroidism. The patient was started on methimazole. 12. MRSA colonization of the nares. Continue Bactroban. 13. Fluid, electrolytes and nutrition. Carbohydrate controlled, low- cholesterol diet. 14. DVT prophylaxis with serial sequential compression devices. No anticoagulation because of underlying GI bleed. 15. Gastrointestinal prophylaxis with proton pump inhibitors. PLAN: Continue antibiotics as per infectious diseases. Call podiatry as per ID recommendations because of bilateral heel pressure ulcers. Case discussed with Dr. Ying. Problems: Subjective 24 Hr Interval Summary Free Text/Dictation Patient remains afebrile. Continues to be in atrial fibrillation. Rate controlled. Exam/Review of Systems Vital Signs Vitals Vital Signs Date Time Temp Pulse Resp B/P Pulse Ox O2 Delivery O2 Flow Rate FiO2 08/16/16 08:28 96 08/16/16 07:29 97.9 18 137/81 96 08/14/16 13:19 Room Air 08/14/16 02:27 2.0 08/14/16 00:30 28 Intake and Output 08/15/16 08/15/16 08/16/16 15:00 23:00 07:00 Intake Total 1450 ml 400 ml Output Total 900 ml 400 ml Balance 550 ml 0 ml Exam GENERAL: This is a frail-looking elderly female lying in bed in no apparent distress. HEENT: Head normocephalic and atraumatic. Eyes: Anicteric sclerae. Conjunctivae clear. ENT: Nasal septum is midline. Oral mucosa is dry. NECK: Supple. No JVD noticed. RESPIRATORY: Bilaterally diminished breath sounds. No adventitious breath sounds. No use of accessory muscles of respiration. CARDIAC: Irregularly irregular rhythm. Systolic murmur. ABDOMEN: Soft, nontender and nondistended. Bowel sounds hypoactive in all 4 quadrants. GENITOURINARY: Deferred. EXTREMITIES: No cyanosis, no clubbing. Bilateral lower extremity 1 to 2+ pitting edema. Left upper extremity 2 to 3+ pitting edema. Left upper extremity tenderness upon palpation. Peripheral pulses are diminished. NEUROLOGIC: The patient is awake and alert and oriented x1 to 2. Results Result Diagram: 08/16/16 0700 08/16/16 0700 Results 24 hrs Laboratory Tests Test 08/15/16 12:35 08/15/16 17:47 08/15/16 21:36 08/16/16 07:00 Bedside Glucose 237 H 249 H 177 Anion Gap 13 Basophils # 0.0 Basophils % 0.2 Blood Morphology Comment Blood Urea Nitrogen 39 #H Calcium Level 7.3 L Carbon Dioxide Level 19 L Chloride Level 112 H Creatinine 0.62 Eosinophils # 0.1 Eosinophils % 0.6 Glucose Level 131 # Hematocrit 23.6 L Hemoglobin 7.8 L Lymphocytes # 1.2 Lymphocytes % 7.3 L Magnesium Level 1.9 Mean Corpuscular Hemoglobin 28.6 L Mean Corpuscular Hemoglobin Concent 33.1 Mean Corpuscular Volume 86.4 Mean Platelet Volume 8.8 Monocytes # 0.3 Monocytes % 1.9 Neutrophils # 14.9 H Neutrophils % 90.0 H Nucleated Red Blood Cells # 0.0 Nucleated Red Blood Cells % 0.0 Phosphorus Level 2.8 Platelet Count 294 Potassium Level 4.0 Red Blood Count 2.73 L Red Cell Distribution Width 14.5 Sodium Level 140 White Blood Count 16.6 H Test 08/16/16 08:00 Bedside Glucose 149 Medications Medications Current Medications Sodium Chloride (NS) 1,000 ml @ 75 mls/hr [id number] IV Last administered on 08/16 02:12; Admin Dose 75 MLS/HR; Start 08/13/16 at 15:31 Lorazepam (Ativan) 0.5 mg Q6H PRN IV ANXIETY; Start 08/13/16 at 16:00 Ondansetron HCl (Zofran Inj) 4 mg Q6H PRN IV NAUSEA AND/OR VOMITING; Start 08/13 at 16:00 Nitroglycerin (Nitroglycerin (Sl Tab) 0.4 Mg) 1 tab Q5M PRN SL CHEST PAIN; Start 08/13/16 at 16:00 Acetaminophen (Tylenol Supp) 650 mg Q6H PRN [place] PAIN LEVEL 1-3 OR FEVER; Start 08/13/16 at 16:00 Morphine Sulfate (morphine) 2 mg Q4H PRN IV PAIN LEVEL 7-10 Last administered on 08/16/16 09:18; Admin Dose 2 MG; Start 08/13/16 at 16:00 Bisacodyl 5 mg 5 mg DAILY PRN PO CONSTIPATION; Start 08/13/16 at 16:00 Pantoprazole/ Sodium Chloride (Protonix Iv/NS) 100 ml @ 10 mls/hr Q10H IV Last administered on 08/15/16 22:21; Admin Dose 10 MLS/HR; Start 08/13/16 at 16: 00 Miscellaneous Information 1 ea NOTE XX ; Start 08/13/16 at 17:30 Glucose (Glutose) 15 gm Q15M PRN PO DECREASED GLUCOSE; Start 08/13/16 at 17:30 Glucose (Glutose) 22.5 gm Q15M PRN PO DECREASED GLUCOSE; Start 08/13/16 at 17:30 Dextrose (D50w Syringe) 25 ml Q15M PRN IV DECREASED GLUCOSE; Start 08/13/16 at 17:30 Dextrose (D50w Syringe) 50 ml Q15M PRN IV DECREASED GLUCOSE; Start 08/13/16 at 17:30 Glucagon (Glucagen) 1 mg Q15M PRN IM DECREASED GLUCOSE; Start 08/13/16 at 17:30 Glucose (Glutose) 15 gm Q15M PRN BUCCAL DECREASED GLUCOSE; Start 08/13/16 at 17: 30 Collagenase (Santyl) 1 applic DAILY TOP Last administered on 08/16/16 09:00; Admin Dose 1 APPLIC; Start 08/14/16 at 09:00 Collagenase 1 applic 1 applic PRN PRN TOP WOUND CARE; Start 08/14/16 at 05:30 Vancomycin HCl 1.25 gm/Sodium Chloride 250 ml @ 83.333 mls/ hr Q24H IVPB Last administered on 08/15/16 12:42; Admin Dose 83.333 MLS/HR; Start 08/15/16 at 12: 00 Imipenem/ Cilastatin Sodium (Primaxin 500 Mg/ 100 ml (Pmx)) 100 ml @ 100 mls/ hr Q8 IVPB Last administered on 08/15/16 22:22; Admin Dose 100 MLS/HR; Start 08/14/16 at 22:00 Mupirocin (Bactroban) 1 applic BID TOP Last administered on 08/16/16 10:15; Admin Dose 1 APPLIC; Start 08/15/16 at 13:00 Atorvastatin Calcium (Lipitor) 10 mg QHS PO Last administered on 08/15/16 21: 33; Admin Dose 10 MG; Start 08/15/16 at 21:00 Metoprolol Tartrate (Lopressor) 50 mg BID PO Last administered on 08/15/16 15: 30; Admin Dose 50 MG; Start 08/15/16 at 15:00 Diagnostic Test (Pha) (Accucheck) 1 ea 02 XX ; Start 08/16/16 at 02:00 Methimazole (Tapazole) 20 mg DAILY PO Last administered on 08/16/16 10:14; Admin Dose 20 MG; Start 08/15/16 at 15:00 Insulin Glargine (Lantus) 22 unit HS SC Last administered on 08/15/16 21:44; Admin Dose 22 UNIT; Start 08/15/16 at 21:00 Propylthiouracil (Ptu) 200 mg TID PO Last administered on 08/16/16 10:14; Admin Dose 200 MG; Start 08/15/16 at 21:00; Stop 08/16/16 at 20:59 Linagliptin (Tradjenta) 5 mg DAILY PO Last administered on 08/16/16 10:14; Admin Dose 5 MG; Start 08/15/16 at 18:30 DANN HAY NP Aug 16, 2016 11:41
[2016-08-16] MEDS: METOPROLOL 50 MG TAB PO SCH ×2 (12:46→21:15)
--- NOTE | 2016-08-16 14:46 | CONS ---
Date/Time of Note Date/Time of Note DATE: 08/16/16 TIME: 14:42 Assessment/Plan Assessment/Plan Additional Assessment/Plan IMPRESSION: 1. Upper gastrointestinal bleeding, rule out peptic ulcer disease, rule out Faye-Johnson tear, rule out gastroesophageal reflux disease. 2. Hypertension. 3. Cerebrovascular accident. 4. Diabetes mellitus. 5. Hypothyroidism. 6. Anemia. 7. Sepsis with positive blood culture. 8. Urinary tract infection. 9. edema upper extremity Plan no further bleeding,further drop in ht.secondary to hydration continue antibiotics monitor H&H Consultation Date/Type/Reason Admit Date/Time Aug 14, 2016 at 01:54 Initial Consult Date 08/15/16 Type of Consultation: cv Referring Provider: SÁNCHEZ WOMACK MD 24 HR Interval Summary Free Text/Dictation pain rt.arm Exam/Review of Systems Vital Signs Vitals Vital Signs Date Time Temp Pulse Resp B/P Pulse Ox O2 Delivery O2 Flow Rate FiO2 08/16/16 12:31 103 08/16/16 11:44 98.3 16 126/85 98 08/14/16 13:19 Room Air 08/14/16 02:27 2.0 08/14/16 00:30 28 Intake and Output 08/15/16 08/15/16 08/16/16 15:00 23:00 07:00 Intake Total 1450 ml 400 ml Output Total 900 ml 400 ml Balance 550 ml 0 ml Exam Constitutional: alert, oriented, well developed Respiratory: clear to auscultation, normal air movement Cardiovascular: nl pulses, regular rate and rhythm Gastrointestinal: nl liver, spleen, non-tender, soft Extremities: edema, tenderness (upper rxtremety edematous and tender especially left arm.) Results Result Diagram: 08/16/16 0700 08/16/16 0700 Results 24 hrs Laboratory Tests Test 08/15/16 17:47 08/15/16 21:36 08/16/16 07:00 08/16/16 08:00 Bedside Glucose 249 H 177 149 Anion Gap 13 Basophils # 0.0 Basophils % 0.2 Blood Morphology Comment Blood Urea Nitrogen 39 #H Calcium Level 7.3 L Carbon Dioxide Level 19 L Chloride Level 112 H Creatinine 0.62 Eosinophils # 0.1 Eosinophils % 0.6 Glucose Level 131 # Hematocrit 23.6 L Hemoglobin 7.8 L Lymphocytes # 1.2 Lymphocytes % 7.3 L Magnesium Level 1.9 Mean Corpuscular Hemoglobin 28.6 L Mean Corpuscular Hemoglobin Concent 33.1 Mean Corpuscular Volume 86.4 Mean Platelet Volume 8.8 Monocytes # 0.3 Monocytes % 1.9 Neutrophils # 14.9 H Neutrophils % 90.0 H Nucleated Red Blood Cells # 0.0 Nucleated Red Blood Cells % 0.0 Phosphorus Level 2.8 Platelet Count 294 Potassium Level 4.0 Red Blood Count 2.73 L Red Cell Distribution Width 14.5 Sodium Level 140 Vancomycin Level Trough 12.8 White Blood Count 16.6 H Test 08/16/16 12:36 Bedside Glucose 199 Medications Medications Current Medications Sodium Chloride (NS) 1,000 ml @ 75 mls/hr [id number] IV Last administered on 08/16 02:12; Admin Dose 75 MLS/HR; Start 08/13/16 at 15:31 Lorazepam (Ativan) 0.5 mg Q6H PRN IV ANXIETY; Start 08/13/16 at 16:00 Ondansetron HCl (Zofran Inj) 4 mg Q6H PRN IV NAUSEA AND/OR VOMITING; Start 08/13 at 16:00 Nitroglycerin (Nitroglycerin (Sl Tab) 0.4 Mg) 1 tab Q5M PRN SL CHEST PAIN; Start 08/13/16 at 16:00 Acetaminophen (Tylenol Supp) 650 mg Q6H PRN [place] PAIN LEVEL 1-3 OR FEVER; Start 08/13/16 at 16:00 Morphine Sulfate (morphine) 2 mg Q4H PRN IV PAIN LEVEL 7-10 Last administered on 08/16/16 09:18; Admin Dose 2 MG; Start 08/13/16 at 16:00 Bisacodyl 5 mg 5 mg DAILY PRN PO CONSTIPATION; Start 08/13/16 at 16:00 Pantoprazole/ Sodium Chloride (Protonix Iv/NS) 100 ml @ 10 mls/hr Q10H IV Last administered on 08/15/16 22:21; Admin Dose 10 MLS/HR; Start 08/13/16 at 16: 00 Miscellaneous Information 1 ea NOTE XX ; Start 08/13/16 at 17:30 Glucose (Glutose) 15 gm Q15M PRN PO DECREASED GLUCOSE; Start 08/13/16 at 17:30 Glucose (Glutose) 22.5 gm Q15M PRN PO DECREASED GLUCOSE; Start 08/13/16 at 17:30 Dextrose (D50w Syringe) 25 ml Q15M PRN IV DECREASED GLUCOSE; Start 08/13/16 at 17:30 Dextrose (D50w Syringe) 50 ml Q15M PRN IV DECREASED GLUCOSE; Start 08/13/16 at 17:30 Glucagon (Glucagen) 1 mg Q15M PRN IM DECREASED GLUCOSE; Start 08/13/16 at 17:30 Glucose (Glutose) 15 gm Q15M PRN BUCCAL DECREASED GLUCOSE; Start 08/13/16 at 17: 30 Collagenase (Santyl) 1 applic DAILY TOP Last administered on 08/16/16 09:00; Admin Dose 1 APPLIC; Start 08/14/16 at 09:00 Collagenase 1 applic 1 applic PRN PRN TOP WOUND CARE; Start 08/14/16 at 05:30 Vancomycin HCl 1.25 gm/Sodium Chloride 250 ml @ 83.333 mls/ hr Q24H IVPB Last administered on 08/15/16 12:42; Admin Dose 83.333 MLS/HR; Start 08/15/16 at 12: 00 Imipenem/ Cilastatin Sodium (Primaxin 500 Mg/ 100 ml (Pmx)) 100 ml @ 100 mls/ hr Q8 IVPB Last administered on 08/15/16 22:22; Admin Dose 100 MLS/HR; Start 08/14/16 at 22:00 Mupirocin (Bactroban) 1 applic BID TOP Last administered on 08/16/16 10:15; Admin Dose 1 APPLIC; Start 08/15/16 at 13:00 Atorvastatin Calcium (Lipitor) 10 mg QHS PO Last administered on 08/15/16 21: 33; Admin Dose 10 MG; Start 08/15/16 at 21:00 Metoprolol Tartrate (Lopressor) 50 mg BID PO Last administered on 08/16/16 12: 46; Admin Dose 50 MG; Start 08/15/16 at 15:00 Diagnostic Test (Pha) (Accucheck) 1 ea 02 XX ; Start 08/16/16 at 02:00 Methimazole (Tapazole) 20 mg DAILY PO Last administered on 08/16/16 10:14; Admin Dose 20 MG; Start 08/15/16 at 15:00 Insulin Glargine (Lantus) 22 unit HS SC Last administered on 08/15/16 21:44; Admin Dose 22 UNIT; Start 08/15/16 at 21:00 Propylthiouracil (Ptu) 200 mg TID PO Last administered on 08/16/16 12:46; Admin Dose 200 MG; Start 08/15/16 at 21:00; Stop 08/16/16 at 20:59 Linagliptin (Tradjenta) 5 mg DAILY PO Last administered on 08/16/16 10:14; Admin Dose 5 MG; Start 08/15/16 at 18:30 CHANCE QUEZADA MD Aug 16, 2016 14:46
--- NOTE | 2016-08-16 15:27 | RADRPT ---
PROCEDURE: XR Chest. CLINICAL INDICATION: Check PICC line position. TECHNIQUE: Single frontal view. COMPARISON: 08/13/2016. FINDINGS: There is a right arm PICC line with the tip in the lower superior vena cava. There is patchy air sp himanshu disease in the right mid and lower lung zone consistent with pneumonia. There is mild left basil ar atelectasis. The lungs are otherwise clear. The heart size is normal. There is calcification in the aorta consistent with atherosclerosis. There is no pleural effusion. There is no pneumothorax. IMPRESSION: 1. Satisfactory position of right arm PICC line. 2. Patchy pneumonia in the right mid and lower lung zones. 3. Left basilar atelectasis. 4. Atherosclerosis. RPTAT: QQ .Bob Vivas MD, MD Date Time Electronically viewed and signed by .Bob Vivas MD, on 08/16/2016 15:27 .R/
--- NOTE | 2016-08-16 15:31 | RADRPT ---
PROCEDURE: Ultrasound proximal right upper extremity for PICC placement CLINICAL INDICATION: PICC placement TECHNIQUE: Sonographic evaluation of the proximal right upper extremity vessels was performed util izing a high-frequency linear transducer. COMPARISON: None available FINDINGS: Limited evaluation of the proximal right upper extremity for vascular access for PICC placement. Gr ossly, no abnormality is seen. IMPRESSION: Unremarkable limited proximal right upper extremity ultrasound for PICC placement. RPTAT: JJ .Nitin Holman MD, MD Date Time Electronically viewed and signed by .Nitin Holman MD, MD on 08/16/2016 15:31 .A/
[2016-08-16] MEDS: CEFTRIAXONE 1 GM/50 ML (PMX) 50 ML IVPB SCH (15:41)
--- NOTE | 2016-08-16 17:25 | PN ---
DATE: 08/16/2016 SUBJECTIVE: This is an infectious disease progress note. No events overnight. The patient is awak e, looks comfortable, denies pain, no fevers. WBC today 16.6 with H and H 7.8 and 23.6, platelets 294, neutrophils 90, BUN 39, creatinine 0.62. MICROBIOLOGY: Blood culture growing MRSA. Urine culture growing E. coli and MRSA. Nares swab ca me back positive for MRSA. Wound culture preliminary growing Staphylococcus aureus. ANTIMICROBIALS: 1. Vancomycin. 2. Imipenem. INDWELLINGS: Lundy catheter. PHYSICAL EXAMINATION: GENERAL: Fragile, elderly woman who is lying comfortably in bed. Patient is awake and follows comm ands. HEENT: Head atraumatic, normocephalic. Sclerae anicteric. Buccal mucosa dry. NECK: Supple, trachea midline. CHEST: Rise symmetrical. Breath sounds clear, diminished to bases. HEART: S1, S2. ABDOMEN: Soft. Bowel tones present. EXTREMITIES: Left upper extremity edema. The patient also has anasarca. ASSESSMENT: 1. Sepsis. 2. Methicillin-resistant Staphylococcus aureus bacteremia. 3. Polymicrobial urinary tract infection with urine culture growing MRSA and E. coli. 4. Bilateral heel cellulitis with open wounds with possible osteomyelitis, right more than left wit h right foot wound culture preliminary growing Staphylococcus aureus. 5. Methicillin-resistant Staphylococcus aureus nares colonization. 6. Anemia, status post hematemesis and EGD that revealed Faye-Johnson tear and chronic gastritis. 7. History of atrial fibrillation and congestive heart failure. 8. History of cerebrovascular accident. 9. Diabetes. PLAN: The patient remains stable. Vancomycin level today 12.8. She is on appropriate coverage wit h antibiotics. We might change imipenem to Rocephin for Escherichia coli coverage. Keep her on IV vancomycin. Add oral rifampin. Await for podiatry evaluation. Continue anti-aspiration measures, left upper extremity elevation of bilateral lower extremity off load. Dictated By: DEMAR VILLALOBOS PAINT STOCK CLERK for [employer] LYMAN/TIN Conf#: [id number] DID#: [id number]
[2016-08-16] MEDS: VANCOMYCIN 750 MG in SOD CHLORIDE 0.9% 150 ML IVPB SCH (17:34)
[2016-08-16] MEDS: RIFAMPIN 300 MG CAP PO SCH (17:34)
--- NOTE | 2016-08-16 18:16 | CONS ---
Date/Time of Note Date/Time of Note DATE: 08/16/16 TIME: 18:14 Assessment/Plan Assessment/Plan Chief Complaint/Hosp Course 80-year-old female who is a resident of [facility] rehab. She was transferred for declining status. Please note I attempted to speak to the folks at the snf to clarify her medication list. The medication list that accompanied the patient does not have any type of thyroid hormone replacement therapy or any type of antithyroid drugs. She has a suppressed TSH with an elevated free T4 in the setting of extreme medical illness. Problems: (1) Hyperthyroidism Status: Acute Comment: On antithyroid drug therapy. We are doing an aggressive protocol to try and bring this under control. While this is going on the much larger issues regarding the MRSA septicemia are under management by the primary team and infectious diseases (2) Atrial fibrillation with RVR Status: Chronic Comment: Adequate rate control Consultation Date/Type/Reason Admit Date/Time Aug 14, 2016 at 01:54 Initial Consult Date 08/15/16 Type of Consultation: Endocrinology Reason for Consultation Hyperthyroidism with A. fib with RVR Referring Provider: SÁNCHEZ WOMACK MD Exam/Review of Systems Vital Signs Vitals Vital Signs Date Time Temp Pulse Resp B/P Pulse Ox O2 Delivery O2 Flow Rate FiO2 08/16/16 16:24 87 08/16/16 15:34 98.2 18 116/56 98 08/14/16 13:19 Room Air 08/14/16 02:27 2.0 08/14/16 00:30 28 Intake and Output 08/15/16 08/15/16 08/16/16 15:00 23:00 07:00 Intake Total 1450 ml 400 ml Output Total 900 ml 400 ml Balance 550 ml 0 ml Exam Constitutional: non-verbal Neck: non-tender, supple Respiratory: clear to auscultation, normal air movement Cardiovascular: irregular rhythm, nl pulses Results Result Diagram: 08/16/16 0700 08/16/16 0700 Results 24 hrs Laboratory Tests Test 08/15/16 21:36 08/16/16 07:00 08/16/16 08:00 08/16/16 12:36 Bedside Glucose 177 149 199 Anion Gap 13 Basophils # 0.0 Basophils % 0.2 Blood Morphology Comment Blood Urea Nitrogen 39 #H Calcium Level 7.3 L Carbon Dioxide Level 19 L Chloride Level 112 H Creatinine 0.62 Eosinophils # 0.1 Eosinophils % 0.6 Glucose Level 131 # Hematocrit 23.6 L Hemoglobin 7.8 L Lymphocytes # 1.2 Lymphocytes % 7.3 L Magnesium Level 1.9 Mean Corpuscular Hemoglobin 28.6 L Mean Corpuscular Hemoglobin Concent 33.1 Mean Corpuscular Volume 86.4 Mean Platelet Volume 8.8 Monocytes # 0.3 Monocytes % 1.9 Neutrophils # 14.9 H Neutrophils % 90.0 H Nucleated Red Blood Cells # 0.0 Nucleated Red Blood Cells % 0.0 Phosphorus Level 2.8 Platelet Count 294 Potassium Level 4.0 Red Blood Count 2.73 L Red Cell Distribution Width 14.5 Sodium Level 140 Vancomycin Level Trough 12.8 White Blood Count 16.6 H Test 08/16/16 17:32 Bedside Glucose 199 Medications Medications Current Medications Sodium Chloride (NS) 1,000 ml @ 75 mls/hr [id number] IV Last administered on 08/16 15:43; Admin Dose 75 MLS/HR; Start 08/13/16 at 15:31 Lorazepam (Ativan) 0.5 mg Q6H PRN IV ANXIETY; Start 08/13/16 at 16:00 Ondansetron HCl (Zofran Inj) 4 mg Q6H PRN IV NAUSEA AND/OR VOMITING; Start 08/13 at 16:00 Nitroglycerin (Nitroglycerin (Sl Tab) 0.4 Mg) 1 tab Q5M PRN SL CHEST PAIN; Start 08/13/16 at 16:00 Acetaminophen (Tylenol Supp) 650 mg Q6H PRN [place] PAIN LEVEL 1-3 OR FEVER; Start 08/13/16 at 16:00 Morphine Sulfate (morphine) 2 mg Q4H PRN IV PAIN LEVEL 7-10 Last administered on 08/16/16 15:42; Admin Dose 2 MG; Start 08/13/16 at 16:00 Bisacodyl 5 mg 5 mg DAILY PRN PO CONSTIPATION; Start 08/13/16 at 16:00 Pantoprazole/ Sodium Chloride (Protonix Iv/NS) 100 ml @ 10 mls/hr Q10H IV Last administered on 08/16/16 15:42; Admin Dose 10 MLS/HR; Start 08/13/16 at 16: 00 Miscellaneous Information 1 ea NOTE XX ; Start 08/13/16 at 17:30 Glucose (Glutose) 15 gm Q15M PRN PO DECREASED GLUCOSE; Start 08/13/16 at 17:30 Glucose (Glutose) 22.5 gm Q15M PRN PO DECREASED GLUCOSE; Start 08/13/16 at 17:30 Dextrose (D50w Syringe) 25 ml Q15M PRN IV DECREASED GLUCOSE; Start 08/13/16 at 17:30 Dextrose (D50w Syringe) 50 ml Q15M PRN IV DECREASED GLUCOSE; Start 08/13/16 at 17:30 Glucagon (Glucagen) 1 mg Q15M PRN IM DECREASED GLUCOSE; Start 08/13/16 at 17:30 Glucose (Glutose) 15 gm Q15M PRN BUCCAL DECREASED GLUCOSE; Start 08/13/16 at 17: 30 Collagenase (Santyl) 1 applic DAILY TOP Last administered on 08/16/16 09:00; Admin Dose 1 APPLIC; Start 08/14/16 at 09:00 Collagenase (Santyl) 1 applic PRN PRN TOP WOUND CARE; Start 08/14/16 at 05:30 Mupirocin (Bactroban) 1 applic BID TOP Last administered on 08/16/16 10:15; Admin Dose 1 APPLIC; Start 08/15/16 at 13:00 Atorvastatin Calcium (Lipitor) 10 mg QHS PO Last administered on 08/15/16 21: 33; Admin Dose 10 MG; Start 08/15/16 at 21:00 Metoprolol Tartrate (Lopressor) 50 mg BID PO Last administered on 08/16/16 12: 46; Admin Dose 50 MG; Start 08/15/16 at 15:00 Diagnostic Test (Pha) (Accucheck) 1 ea 02 XX ; Start 08/16/16 at 02:00 Methimazole (Tapazole) 20 mg DAILY PO Last administered on 08/16/16 10:14; Admin Dose 20 MG; Start 08/15/16 at 15:00 Insulin Glargine (Lantus) 22 unit HS SC Last administered on 08/15/16 21:44; Admin Dose 22 UNIT; Start 08/15/16 at 21:00 Propylthiouracil (Ptu) 200 mg TID PO Last administered on 08/16/16 12:46; Admin Dose 200 MG; Start 08/15/16 at 21:00; Stop 08/16/16 at 20:59 Linagliptin (Tradjenta) 5 mg DAILY PO Last administered on 08/16/16 10:14; Admin Dose 5 MG; Start 08/15/16 at 18:30 Rifampin 600 mg 600 mg DAILY PO Last administered on 08/16/16 17:34; Admin Dose 600 MG; Start 08/16/16 at 16:30 Ceftriaxone Sodium 50 ml @ 100 mls/hr Q24H IVPB Last administered on 15:41; Admin Dose 100 MLS/HR; Start 08/16/16 at 15:30 Vancomycin HCl/ Sodium Chloride (Vancocin/NS) 150 ml @ 75 mls/hr Q12H IVPB Last administered on 08/16/16 17:34; Admin Dose 75 MLS/HR; Start 08/16/16 at 17 :00 IV Flush (NS 10 ml) 10 ml PRN PRN IV IV PROTOCOL; Start 08/16/16 at 15:30 MINNIE GILES MD Aug 16, 2016 18:15
[2016-08-16] MEDS ORDERED: SOD CHLORIDE 0.9% 100 ML ONE (19:27)
--- NOTE | 2016-08-16 19:33 | CONS ---
Date/Time of Note Date/Time of Note DATE: 08/16/16 TIME: 19:31 Assessment/Plan Assessment/Plan Additional Assessment/Plan Sepsis with positive blood cultures Atrial fibrillation with rapid ventricular rates, improved Preserved ejection fraction Hyperthyroidism History of congestive heart failure History of hypertension History of CVA Possible GI bleed Diabetes -Atrial fibrillation well-controlled on current dose of beta blockers. Antibiotics as per infectious disease colleagues. Blood pressure trend improved. No new cardiac orders at the current time Consultation Date/Type/Reason Admit Date/Time Aug 14, 2016 at 01:54 Initial Consult Date 08/15/16 Type of Consultation: cv Referring Provider: SÁNCHEZ WOMACK MD 24 HR Interval Summary Free Text/Dictation Denies chest pain, palpitations or shortness of breath Exam/Review of Systems Vital Signs Vitals Vital Signs Date Time Temp Pulse Resp B/P Pulse Ox O2 Delivery O2 Flow Rate FiO2 08/16/16 16:24 87 08/16/16 15:34 98.2 18 116/56 98 08/14/16 13:19 Room Air 08/14/16 02:27 2.0 08/14/16 00:30 28 Intake and Output 08/15/16 08/15/16 08/16/16 15:00 23:00 07:00 Intake Total 1450 ml 400 ml Output Total 900 ml 400 ml Balance 550 ml 0 ml Exam Confused at times, follows commands, no apparent distress Constitutional: alert Head: normocephalic Neck: supple Respiratory: other (course breath sounds bilaterally, no wheezing) Cardiovascular: irregular rhythm, other (S1-S2 heard) Gastrointestinal: bowel sounds, non-tender, soft Extremities: edema Results Result Diagram: 08/16/16 0700 08/16/16 0700 Results 24 hrs Laboratory Tests Test 08/15/16 21:36 08/16/16 07:00 08/16/16 08:00 08/16/16 12:36 Bedside Glucose 177 149 199 Anion Gap 13 Basophils # 0.0 Basophils % 0.2 Blood Morphology Comment Blood Urea Nitrogen 39 #H Calcium Level 7.3 L Carbon Dioxide Level 19 L Chloride Level 112 H Creatinine 0.62 Eosinophils # 0.1 Eosinophils % 0.6 Glucose Level 131 # Hematocrit 23.6 L Hemoglobin 7.8 L Lymphocytes # 1.2 Lymphocytes % 7.3 L Magnesium Level 1.9 Mean Corpuscular Hemoglobin 28.6 L Mean Corpuscular Hemoglobin Concent 33.1 Mean Corpuscular Volume 86.4 Mean Platelet Volume 8.8 Monocytes # 0.3 Monocytes % 1.9 Neutrophils # 14.9 H Neutrophils % 90.0 H Nucleated Red Blood Cells # 0.0 Nucleated Red Blood Cells % 0.0 Phosphorus Level 2.8 Platelet Count 294 Potassium Level 4.0 Red Blood Count 2.73 L Red Cell Distribution Width 14.5 Sodium Level 140 Vancomycin Level Trough 12.8 White Blood Count 16.6 H Test 08/16/16 17:32 Bedside Glucose 199 Medications Medications Current Medications Sodium Chloride (NS) 1,000 ml @ 75 mls/hr [id number] IV Last administered on 08/16 15:43; Admin Dose 75 MLS/HR; Start 08/13/16 at 15:31 Lorazepam (Ativan) 0.5 mg Q6H PRN IV ANXIETY; Start 08/13/16 at 16:00 Ondansetron HCl (Zofran Inj) 4 mg Q6H PRN IV NAUSEA AND/OR VOMITING; Start 08/13 at 16:00 Nitroglycerin (Nitroglycerin (Sl Tab) 0.4 Mg) 1 tab Q5M PRN SL CHEST PAIN; Start 08/13/16 at 16:00 Acetaminophen (Tylenol Supp) 650 mg Q6H PRN [place] PAIN LEVEL 1-3 OR FEVER; Start 08/13/16 at 16:00 Morphine Sulfate (morphine) 2 mg Q4H PRN IV PAIN LEVEL 7-10 Last administered on 08/16/16 15:42; Admin Dose 2 MG; Start 08/13/16 at 16:00 Bisacodyl 5 mg 5 mg DAILY PRN PO CONSTIPATION; Start 08/13/16 at 16:00 Pantoprazole/ Sodium Chloride (Protonix Iv/NS) 100 ml @ 10 mls/hr Q10H IV Last administered on 08/16/16 15:42; Admin Dose 10 MLS/HR; Start 08/13/16 at 16: 00 Miscellaneous Information 1 ea NOTE XX ; Start 08/13/16 at 17:30 Glucose (Glutose) 15 gm Q15M PRN PO DECREASED GLUCOSE; Start 08/13/16 at 17:30 Glucose (Glutose) 22.5 gm Q15M PRN PO DECREASED GLUCOSE; Start 08/13/16 at 17:30 Dextrose (D50w Syringe) 25 ml Q15M PRN IV DECREASED GLUCOSE; Start 08/13/16 at 17:30 Dextrose (D50w Syringe) 50 ml Q15M PRN IV DECREASED GLUCOSE; Start 08/13/16 at 17:30 Glucagon (Glucagen) 1 mg Q15M PRN IM DECREASED GLUCOSE; Start 08/13/16 at 17:30 Glucose (Glutose) 15 gm Q15M PRN BUCCAL DECREASED GLUCOSE; Start 08/13/16 at 17: 30 Collagenase (Santyl) 1 applic DAILY TOP Last administered on 08/16/16 09:00; Admin Dose 1 APPLIC; Start 08/14/16 at 09:00 Mupirocin (Bactroban) 1 applic BID TOP Last administered on 08/16/16 10:15; Admin Dose 1 APPLIC; Start 08/15/16 at 13:00 Atorvastatin Calcium (Lipitor) 10 mg QHS PO Last administered on 08/15/16 21: 33; Admin Dose 10 MG; Start 08/15/16 at 21:00 Metoprolol Tartrate (Lopressor) 50 mg BID PO Last administered on 08/16/16 12: 46; Admin Dose 50 MG; Start 08/15/16 at 15:00 Diagnostic Test (Pha) (Accucheck) 1 ea 02 XX ; Start 08/16/16 at 02:00 Methimazole (Tapazole) 20 mg DAILY PO Last administered on 08/16/16 10:14; Admin Dose 20 MG; Start 08/15/16 at 15:00 Insulin Glargine (Lantus) 22 unit HS SC Last administered on 08/15/16 21:44; Admin Dose 22 UNIT; Start 08/15/16 at 21:00 Propylthiouracil (Ptu) 200 mg TID PO Last administered on 08/16/16 12:46; Admin Dose 200 MG; Start 08/15/16 at 21:00; Stop 08/16/16 at 20:59 Linagliptin (Tradjenta) 5 mg DAILY PO Last administered on 08/16/16 10:14; Admin Dose 5 MG; Start 08/15/16 at 18:30 Rifampin 600 mg 600 mg DAILY PO Last administered on 08/16/16 17:34; Admin Dose 600 MG; Start 08/16/16 at 16:30 Ceftriaxone Sodium 50 ml @ 100 mls/hr Q24H IVPB Last administered on 15:41; Admin Dose 100 MLS/HR; Start 08/16/16 at 15:30 Vancomycin HCl/ Sodium Chloride (Vancocin/NS) 150 ml @ 75 mls/hr Q12H IVPB Last administered on 08/16/16 17:34; Admin Dose 75 MLS/HR; Start 08/16/16 at 17 :00 IV Flush (NS 10 ml) 10 ml PRN PRN IV IV PROTOCOL; Start 08/16/16 at 15:30 Collagenase (Santyl) 1 applic DAILY TOP ; Start 08/17/16 at 09:00 Shawn Lozada DO Aug 16, 2016 19:33
[2016-08-16] MEDS: ATORVASTATIN 10 MG TAB PO SCH (21:14)
[2016-08-16] MEDS: INSULIN GLARGINE [LANtus] 3 ML PEN SC SCH (21:18)
[2016-08-17] VITALS (14 sets, daily range): BP systolic 99–146; BP diastolic 57–85; PULSE 66–106; RESP 16–20
[2016-08-17] MEDS: PANTOPRAZOLE IV 80 MG in SOD CHLORIDE 0.9% 100 ML IV SCH ×3 (01:13→21:56)
[2016-08-17] MEDS: ACCUCHECK XX SCH (02:00)
[2016-08-17] MEDS: VANCOMYCIN 750 MG in SOD CHLORIDE 0.9% 150 ML IVPB SCH ×2 (06:17→17:18)
[2016-08-17 06:52] LABS: BASOPHILS % 0.2 % (0.0-2.0); EOSINOPHILS # 0.1 10^3/ul (0.0-0.5); EOSINOPHILS % 0.6 % (0.0-7.0); HEMATOCRIT 21.2 % (37.0-47.0); LYMPHOCYTES # 1.6 10^3/ul (0.8-2.9); LYMPHOCYTES % 11.4 % (15.0-51.0); MEAN CORPUSCULAR HEMOGLOBIN 28.9 pg (29.0-33.0); MEAN CORPUSCULAR HGB CONC 33.1 g/dl (32.0-37.0); MEAN CORPUSCULAR VOLUME 87.2 fl (82.0-101.0); MEAN PLATELET VOLUME 8.5 fl (7.4-10.4); MONOCYTE # 0.1 10^3/ul (0.3-0.9); MONOCYTES % 0.7 % (0.0-11.0); NEUTROPHILS % 87.1 % (39.0-77.0); PLATELET COUNT 287 10^3/UL (140-440); RED BLOOD COUNT 2.43 10^6/ul (4.20-5.40); RED CELL DISTRIBUTION WIDTH 14.8 % (11.5-14.5); UNCORRECTED WBC 13.8 10^3/ul (4.8-10.8); WHITE BLOOD COUNT 13.8 10^3/ul (4.8-10.8)
[2016-08-17 06:54] LABS: POTASSIUM 3.7 mmol/L (3.5-5.1)
[2016-08-17 06:57] LABS: CALCIUM 7.1 mg/dl (8.4-10.2); CREATININE 0.64 mg/dl (0.44-1.00); MAGNESIUM 1.7 mg/dl (1.7-2.5); PHOSPHORUS 3.1 mg/dl (2.5-4.9)
[2016-08-17 07:00] LABS: CONDITION 1; LH ANALYZER COMMENTS 1
[2016-08-17] MEDS ORDERED: SOD CHLORIDE 0.9% 250 ML IV* ONE (07:54)
[2016-08-17] MEDS: INSULIN ASPART [NOVOLOG] 3 ML PEN SC SCH ×7 (07:55→21:00)
[2016-08-17] MEDS ORDERED: FUROSEMIDE 40 MG INJ IV SCH (08:00)
--- NOTE | 2016-08-17 09:32 | PN ---
Date/Time of Note Date/Time of Note DATE: 08/17/16 TIME: 09:30 Assessment/Plan VTE Prophylaxis VTE Prophylaxis Intervention: SCD's Lines/Catheters IV [facility]atheter Type (from [facility]): PICC Line Central line still needed: Yes Urinary Cath still in place: Yes Reason Cath still needed: terminal illness/intractable pain Assessment/Plan Chief Complaint/Hosp Course 1. Upper gastrointestinal bleeding. The patient was evaluated by gastroenterology. Esophagogastroduodenoscopy revealed a Faye-Johnson tear, chronic gastritis, and nodular duodenitis. Continue proton pump inhibitors. 2. Atrial fibrillation with rapid ventricular response. Currently, the rate is controlled. No anticoagulation because of underlying gastrointestinal bleed. Cardiology following. 3. Sepsis with underlying MRSA bacteremia, infected pressure ulcers, and urinary tract infection. Continue antibiotics. Infectious disease is on the case. 4. Lactic acidosis, most probably secondary to #3. 5. Essential hypertension. Continue antihypertensives. 6. Peripheral vascular disease. Monitor for acute changes. Anticoagulation on hold because of current gastrointestinal bleed. 7. Dyslipidemia. Continue statins. Fasting lipid panel showing low HDL and low total cholesterol. 8. Type 2 diabetes mellitus. Hemoglobin A1c 9.8. Continue sliding scale insulin. 9. Left upper extremity edema. Left upper extremity venous Doppler study negative for any deep venous thrombosis. Continue elevation of left upper extremity. 10. Multiple pressure ulcers. Continue local wound care. Wound care consult. 11. Hyperthyroidism. The patient was started on methimazole. 12. MRSA colonization of the nares. Continue Bactroban. 13. Fluid, electrolytes and nutrition. Carbohydrate controlled, low- cholesterol diet. 14. DVT prophylaxis with serial sequential compression devices. No anticoagulation because of underlying GI bleed. 15. Gastrointestinal prophylaxis with proton pump inhibitors. PLAN: Continue antibiotics as per infectious diseases. Transfuse 1 unit of PRBC today. Case discussed with Dr. Ying. Problems: Subjective 24 Hr Interval Summary Free Text/Dictation Remains afebrile. Exam/Review of Systems Vital Signs Vitals Vital Signs Date Time Temp Pulse Resp B/P Pulse Ox O2 Delivery O2 Flow Rate FiO2 08/17/16 08:21 99 08/17/16 07:32 98.3 18 135/85 98 08/17/16 04:00 Room Air 08/14/16 02:27 2.0 08/14/16 00:30 28 Intake and Output 08/16/16 08/16/16 08/17/16 15:00 23:00 07:00 Intake Total 600 ml 840 ml 1320 ml Output Total 700 ml 700 ml Balance 600 ml 140 ml 620 ml Exam GENERAL: This is a frail-looking elderly female lying in bed in no apparent distress. HEENT: Head normocephalic and atraumatic. Eyes: Anicteric sclerae. Conjunctivae clear. ENT: Nasal septum is midline. Oral mucosa is dry. NECK: Supple. No JVD noticed. RESPIRATORY: Bilaterally diminished breath sounds. No adventitious breath sounds. No use of accessory muscles of respiration. CARDIAC: Irregularly irregular rhythm. Systolic murmur. ABDOMEN: Soft, nontender and nondistended. Bowel sounds hypoactive in all 4 quadrants. GENITOURINARY: Deferred. EXTREMITIES: No cyanosis, no clubbing. Bilateral lower extremity 1 to 2+ pitting edema. Left upper extremity 2 to 3+ pitting edema. Left upper extremity tenderness upon palpation. Peripheral pulses are diminished. NEUROLOGIC: The patient is awake and alert and oriented x1 to 2. Results Result Diagram: 08/17/16 0545 08/17/16 0545 Results 24 hrs Laboratory Tests Test 08/16/16 12:36 08/16/16 17:32 08/16/16 20:05 08/17/16 05:45 Bedside Glucose 199 199 181 Anion Gap 11 Basophils # 0.0 Basophils % 0.2 Blood Morphology Comment Blood Urea Nitrogen 30 H Calcium Level 7.1 L Carbon Dioxide Level 21 Chloride Level 110 Creatinine 0.64 Eosinophils # 0.1 Eosinophils % 0.6 Free Thyroxine 2.41 H Glucose Level 125 Hematocrit 21.2 L Hemoglobin 7.0 L Lymphocytes # 1.6 Lymphocytes % 11.4 L Magnesium Level 1.7 Mean Corpuscular Hemoglobin 28.9 L Mean Corpuscular Hemoglobin Concent 33.1 Mean Corpuscular Volume 87.2 Mean Platelet Volume 8.5 Monocytes # 0.1 L Monocytes % 0.7 Neutrophils # 12.0 H Neutrophils % 87.1 H Nucleated Red Blood Cells # 0.0 Nucleated Red Blood Cells % 0.0 Phosphorus Level 3.1 Platelet Count 287 Potassium Level 3.7 Red Blood Count 2.43 L Red Cell Distribution Width 14.8 H Sodium Level 138 White Blood Count 13.8 H Test 08/17/16 07:49 Bedside Glucose 137 Medications Medications Current Medications Sodium Chloride (NS) 1,000 ml @ 75 mls/hr [id number] IV Last administered on 08/16 15:43; Admin Dose 75 MLS/HR; Start 08/13/16 at 15:31 Lorazepam (Ativan) 0.5 mg Q6H PRN IV ANXIETY; Start 08/13/16 at 16:00 Ondansetron HCl (Zofran Inj) 4 mg Q6H PRN IV NAUSEA AND/OR VOMITING; Start 08/13 at 16:00 Nitroglycerin (Nitroglycerin (Sl Tab) 0.4 Mg) 1 tab Q5M PRN SL CHEST PAIN; Start 08/13/16 at 16:00 Acetaminophen (Tylenol Supp) 650 mg Q6H PRN [place] PAIN LEVEL 1-3 OR FEVER; Start 08/13/16 at 16:00 Morphine Sulfate (morphine) 2 mg Q4H PRN IV PAIN LEVEL 7-10 Last administered on 08/16/16 15:42; Admin Dose 2 MG; Start 08/13/16 at 16:00 Bisacodyl 5 mg 5 mg DAILY PRN PO CONSTIPATION; Start 08/13/16 at 16:00 Pantoprazole/ Sodium Chloride (Protonix Iv/NS) 100 ml @ 10 mls/hr Q10H IV Last administered on 08/17/16 01:13; Admin Dose 10 MLS/HR; Start 08/13/16 at 16: 00 Miscellaneous Information 1 ea NOTE XX ; Start 08/13/16 at 17:30 Glucose (Glutose) 15 gm Q15M PRN PO DECREASED GLUCOSE; Start 08/13/16 at 17:30 Glucose (Glutose) 22.5 gm Q15M PRN PO DECREASED GLUCOSE; Start 08/13/16 at 17:30 Dextrose (D50w Syringe) 25 ml Q15M PRN IV DECREASED GLUCOSE; Start 08/13/16 at 17:30 Dextrose (D50w Syringe) 50 ml Q15M PRN IV DECREASED GLUCOSE; Start 08/13/16 at 17:30 Glucagon (Glucagen) 1 mg Q15M PRN IM DECREASED GLUCOSE; Start 08/13/16 at 17:30 Glucose (Glutose) 15 gm Q15M PRN BUCCAL DECREASED GLUCOSE; Start 08/13/16 at 17: 30 Mupirocin (Bactroban) 1 applic BID TOP Last administered on 08/16/16 21:14; Admin Dose 1 APPLIC; Start 08/15/16 at 13:00 Atorvastatin Calcium (Lipitor) 10 mg QHS PO Last administered on 08/16/16 21: 14; Admin Dose 10 MG; Start 08/15/16 at 21:00 Metoprolol Tartrate (Lopressor) 50 mg BID PO Last administered on 08/16/16 21: 15; Admin Dose 50 MG; Start 08/15/16 at 15:00 Diagnostic Test (Pha) (Accucheck) 1 ea 02 XX ; Start 08/16/16 at 02:00 Methimazole (Tapazole) 20 mg DAILY PO Last administered on 08/16/16 10:14; Admin Dose 20 MG; Start 08/15/16 at 15:00 Insulin Glargine (Lantus) 22 unit HS SC Last administered on 08/16/16 21:18; Admin Dose 22 UNIT; Start 08/15/16 at 21:00 Linagliptin (Tradjenta) 5 mg DAILY PO Last administered on 08/16/16 10:14; Admin Dose 5 MG; Start 08/15/16 at 18:30 Rifampin 600 mg 600 mg DAILY PO Last administered on 08/16/16 17:34; Admin Dose 600 MG; Start 08/16/16 at 16:30 Ceftriaxone Sodium 50 ml @ 100 mls/hr Q24H IVPB Last administered on 15:41; Admin Dose 100 MLS/HR; Start 08/16/16 at 15:30 Vancomycin HCl/ Sodium Chloride (Vancocin/NS) 150 ml @ 75 mls/hr Q12H IVPB Last administered on 08/17/16 06:17; Admin Dose 75 MLS/HR; Start 08/16/16 at 17 :00 IV Flush (NS 10 ml) 10 ml PRN PRN IV IV PROTOCOL; Start 08/16/16 at 15:30 Collagenase (Santyl) 1 applic DAILY TOP ; Start 08/17/16 at 09:00 Furosemide (Lasix) 20 mg ONCE IV ; Start 08/17/16 at 08:00; Stop 08/18/16 at 07: 59 DANN HAY NP Aug 17, 2016 09:32
[2016-08-17] MEDS: SOD CHLORIDE 0.9% 1,000 ML IV SCH (09:35)
[2016-08-17] MEDS: RIFAMPIN 300 MG CAP PO SCH (09:38)
[2016-08-17] MEDS: METOPROLOL 50 MG TAB PO SCH ×2 (09:38→21:58)
[2016-08-17] MEDS: LINAGLIPTIN 5 MG TABLET PO SCH (09:38)
[2016-08-17] MEDS: MUPIROCIN 2% 22 GM OINT TOP SCH ×2 (09:39→21:58)
[2016-08-17] MEDS: METHIMAZOLE 5 MG TAB PO SCH (09:39)
--- NOTE | 2016-08-17 14:12 | CONS ---
Date/Time of Note Date/Time of Note DATE: 08/17/16 TIME: 14:10 Assessment/Plan Assessment/Plan Additional Assessment/Plan Sepsis with positive blood cultures Atrial fibrillation with rapid ventricular rates, improved Acute blood loss anemia Preserved ejection fraction Hyperthyroidism History of congestive heart failure History of hypertension History of CVA Possible GI bleed Diabetes -Patient with worsening anemia, undergoing blood transfusion. Heart rate well- controlled, continue beta sha as a pressure permits. No anticoagulation given concern for GI bleed. Consultation Date/Type/Reason Admit Date/Time Aug 14, 2016 at 01:54 Initial Consult Date 08/15/16 Type of Consultation: cv Referring Provider: SÁNCHEZ WOMACK MD 24 HR Interval Summary Free Text/Dictation Patient denies shortness of breath, chest pain or palpitations Exam/Review of Systems Vital Signs Vitals Vital Signs Date Time Temp Pulse Resp B/P Pulse Ox O2 Delivery O2 Flow Rate FiO2 08/17/16 12:27 83 08/17/16 11:32 98.2 16 106/57 98 08/17/16 04:00 Room Air 08/14/16 02:27 2.0 08/14/16 00:30 28 Intake and Output 08/16/16 08/16/16 08/17/16 15:00 23:00 07:00 Intake Total 600 ml 840 ml 1320 ml Output Total 700 ml 700 ml Balance 600 ml 140 ml 620 ml Exam Following commands, no apparent distress Constitutional: alert Head: normocephalic Neck: supple Respiratory: other (course breath sounds bilaterally, no wheezing) Cardiovascular: irregular rhythm, other (S1-S2 heard) Gastrointestinal: bowel sounds, non-tender, soft Extremities: edema Results Result Diagram: 08/17/16 0545 08/17/16 0545 Results 24 hrs Laboratory Tests Test 08/16/16 17:32 08/16/16 20:05 08/17/16 05:45 08/17/16 07:49 Bedside Glucose 199 181 137 Anion Gap 11 Basophils # 0.0 Basophils % 0.2 Blood Morphology Comment Blood Urea Nitrogen 30 H Calcium Level 7.1 L Carbon Dioxide Level 21 Chloride Level 110 Creatinine 0.64 Eosinophils # 0.1 Eosinophils % 0.6 Free Thyroxine 2.41 H Glucose Level 125 Hematocrit 21.2 L Hemoglobin 7.0 L Lymphocytes # 1.6 Lymphocytes % 11.4 L Magnesium Level 1.7 Mean Corpuscular Hemoglobin 28.9 L Mean Corpuscular Hemoglobin Concent 33.1 Mean Corpuscular Volume 87.2 Mean Platelet Volume 8.5 Monocytes # 0.1 L Monocytes % 0.7 Neutrophils # 12.0 H Neutrophils % 87.1 H Nucleated Red Blood Cells # 0.0 Nucleated Red Blood Cells % 0.0 Phosphorus Level 3.1 Platelet Count 287 Potassium Level 3.7 Red Blood Count 2.43 L Red Cell Distribution Width 14.8 H Sodium Level 138 Thyroid Stimulating Hormone (TSH) 0.072 L White Blood Count 13.8 H Test 08/17/16 12:31 Bedside Glucose 128 Medications Medications Current Medications Sodium Chloride (NS) 1,000 ml @ 75 mls/hr [id number] IV Last administered on 08/17 09:35; Admin Dose 75 MLS/HR; Start 08/13/16 at 15:31 Lorazepam (Ativan) 0.5 mg Q6H PRN IV ANXIETY; Start 08/13/16 at 16:00 Ondansetron HCl (Zofran Inj) 4 mg Q6H PRN IV NAUSEA AND/OR VOMITING; Start 08/13 at 16:00 Nitroglycerin (Nitroglycerin (Sl Tab) 0.4 Mg) 1 tab Q5M PRN SL CHEST PAIN; Start 08/13/16 at 16:00 Acetaminophen (Tylenol Supp) 650 mg Q6H PRN [place] PAIN LEVEL 1-3 OR FEVER; Start 08/13/16 at 16:00 Morphine Sulfate (morphine) 2 mg Q4H PRN IV PAIN LEVEL 7-10 Last administered on 08/16/16 15:42; Admin Dose 2 MG; Start 08/13/16 at 16:00 Bisacodyl 5 mg 5 mg DAILY PRN PO CONSTIPATION; Start 08/13/16 at 16:00 Pantoprazole/ Sodium Chloride (Protonix Iv/NS) 100 ml @ 10 mls/hr Q10H IV Last administered on 08/17/16 12:21; Admin Dose 10 MLS/HR; Start 08/13/16 at 16: 00 Miscellaneous Information 1 ea NOTE XX ; Start 08/13/16 at 17:30 Glucose (Glutose) 15 gm Q15M PRN PO DECREASED GLUCOSE; Start 08/13/16 at 17:30 Glucose (Glutose) 22.5 gm Q15M PRN PO DECREASED GLUCOSE; Start 08/13/16 at 17:30 Dextrose (D50w Syringe) 25 ml Q15M PRN IV DECREASED GLUCOSE; Start 08/13/16 at 17:30 Dextrose (D50w Syringe) 50 ml Q15M PRN IV DECREASED GLUCOSE; Start 08/13/16 at 17:30 Glucagon (Glucagen) 1 mg Q15M PRN IM DECREASED GLUCOSE; Start 08/13/16 at 17:30 Glucose (Glutose) 15 gm Q15M PRN BUCCAL DECREASED GLUCOSE; Start 08/13/16 at 17: 30 Mupirocin (Bactroban) 1 applic BID TOP Last administered on 08/17/16 09:39; Admin Dose 1 APPLIC; Start 08/15/16 at 13:00 Atorvastatin Calcium (Lipitor) 10 mg QHS PO Last administered on 08/16/16 21: 14; Admin Dose 10 MG; Start 08/15/16 at 21:00 Metoprolol Tartrate (Lopressor) 50 mg BID PO Last administered on 08/17/16 09: 38; Admin Dose 50 MG; Start 08/15/16 at 15:00 Diagnostic Test (Pha) (Accucheck) 1 ea 02 XX ; Start 08/16/16 at 02:00 Methimazole (Tapazole) 20 mg DAILY PO Last administered on 08/17/16 09:39; Admin Dose 20 MG; Start 08/15/16 at 15:00 Insulin Glargine (Lantus) 22 unit HS SC Last administered on 08/16/16 21:18; Admin Dose 22 UNIT; Start 08/15/16 at 21:00 Linagliptin (Tradjenta) 5 mg DAILY PO Last administered on 08/17/16 09:38; Admin Dose 5 MG; Start 08/15/16 at 18:30 Rifampin 600 mg 600 mg DAILY PO Last administered on 08/17/16 09:38; Admin Dose 600 MG; Start 08/16/16 at 16:30 Ceftriaxone Sodium 50 ml @ 100 mls/hr Q24H IVPB Last administered on 15:41; Admin Dose 100 MLS/HR; Start 08/16/16 at 15:30 Vancomycin HCl/ Sodium Chloride (Vancocin/NS) 150 ml @ 75 mls/hr Q12H IVPB Last administered on 08/17/16t 06:17; Admin Dose 75 MLS/HR; Start 08/16/16 at 17 :00 IV Flush (NS 10 ml) 10 ml PRN PRN IV IV PROTOCOL; Start 08/16/16 at 15:30 Collagenase (Santyl) 1 applic DAILY TOP ; Start 08/17/16 at 09:00 Furosemide (Lasix) 20 mg ONCE IV ; Start 08/17/16 at 08:00; Stop 08/18/16 at 07: 59 Shawn Lozada DO Aug 17, 2016 14:11
--- NOTE | 2016-08-17 15:24 | CONS ---
Date/Time of Note Date/Time of Note DATE: 08/17/16 TIME: 15:19 Consult Date/Type/Reason Admit Date/Time Aug 14, 2016 at 01:54 Initial Consult Date 08/15/16 Type of Consultation: ID Ordering Provider: SÁNCHEZ WOMACK MD Subjective no events, awake, looks comfortable, no fevers Objective Vital Signs Date Time Temp Pulse Resp B/P Pulse Ox O2 Delivery O2 Flow Rate FiO2 08/17/16 12:27 83 08/17/16 11:32 98.2 16 106/57 98 08/17/16 08:00 Nasal Cannula 4.0 08/14/16 00:30 28 Intake and Output 08/16/16 08/16/16 08/17/16 15:00 23:00 07:00 Intake Total 600 ml 840 ml 1320 ml Output Total 700 ml 700 ml Balance 600 ml 140 ml 620 ml Results/Medications Result Diagram: 08/17/16 0545 08/17/16 0545 Results 24 hrs Laboratory Tests Test 08/16/16 17:32 08/16/16 20:05 08/17/16 05:45 08/17/16 07:49 Bedside Glucose 199 181 137 Anion Gap 11 Basophils # 0.0 Basophils % 0.2 Blood Morphology Comment Blood Urea Nitrogen 30 H Calcium Level 7.1 L Carbon Dioxide Level 21 Chloride Level 110 Creatinine 0.64 Eosinophils # 0.1 Eosinophils % 0.6 Free Thyroxine 2.41 H Glucose Level 125 Hematocrit 21.2 L Hemoglobin 7.0 L Lymphocytes # 1.6 Lymphocytes % 11.4 L Magnesium Level 1.7 Mean Corpuscular Hemoglobin 28.9 L Mean Corpuscular Hemoglobin Concent 33.1 Mean Corpuscular Volume 87.2 Mean Platelet Volume 8.5 Monocytes # 0.1 L Monocytes % 0.7 Neutrophils # 12.0 H Neutrophils % 87.1 H Nucleated Red Blood Cells # 0.0 Nucleated Red Blood Cells % 0.0 Phosphorus Level 3.1 Platelet Count 287 Potassium Level 3.7 Red Blood Count 2.43 L Red Cell Distribution Width 14.8 H Sodium Level 138 Thyroid Stimulating Hormone (TSH) 0.072 L White Blood Count 13.8 H Test 08/17/16 12:31 Bedside Glucose 128 Medications Current Medications Sodium Chloride (NS) 1,000 ml @ 75 mls/hr [id number] IV Last administered on 08/17 09:35; Admin Dose 75 MLS/HR; Start 08/13/16 at 15:31 Lorazepam (Ativan) 0.5 mg Q6H PRN IV ANXIETY; Start 08/13/16 at 16:00 Ondansetron HCl (Zofran Inj) 4 mg Q6H PRN IV NAUSEA AND/OR VOMITING; Start 08/13 at 16:00 Nitroglycerin (Nitroglycerin (Sl Tab) 0.4 Mg) 1 tab Q5M PRN SL CHEST PAIN; Start 08/13/16 at 16:00 Acetaminophen (Tylenol Supp) 650 mg Q6H PRN MN PAIN LEVEL 1-3 OR FEVER; Start 08/13/16 at 16:00 Morphine Sulfate (morphine) 2 mg Q4H PRN IV PAIN LEVEL 7-10 Last administered on 08/16/16 15:42; Admin Dose 2 MG; Start 08/13/16 at 16:00 Bisacodyl 5 mg 5 mg DAILY PRN PO CONSTIPATION; Start 08/13/16 at 16:00 Pantoprazole/ Sodium Chloride (Protonix Iv/NS) 100 ml @ 10 mls/hr Q10H IV Last administered on 08/17/16 12:21; Admin Dose 10 MLS/HR; Start 08/13/16 at 16: 00 Miscellaneous Information 1 ea NOTE XX ; Start 08/13/16 at 17:30 Glucose (Glutose) 15 gm Q15M PRN PO DECREASED GLUCOSE; Start 08/13/16 at 17:30 Glucose (Glutose) 22.5 gm Q15M PRN PO DECREASED GLUCOSE; Start 08/13/16 at 17:30 Dextrose (D50w Syringe) 25 ml Q15M PRN IV DECREASED GLUCOSE; Start 08/13/16 at 17:30 Dextrose (D50w Syringe) 50 ml Q15M PRN IV DECREASED GLUCOSE; Start 08/13/16 at 17:30 Glucagon (Glucagen) 1 mg Q15M PRN IM DECREASED GLUCOSE; Start 08/13/16 at 17:30 Glucose (Glutose) 15 gm Q15M PRN BUCCAL DECREASED GLUCOSE; Start 08/13/16 at 17: 30 Mupirocin (Bactroban) 1 applic BID TOP Last administered on 08/17/16 09:39; Admin Dose 1 APPLIC; Start 08/15/16 at 13:00 Atorvastatin Calcium (Lipitor) 10 mg QHS PO Last administered on 08/16/16 21: 14; Admin Dose 10 MG; Start 08/15/16 at 21:00 Metoprolol Tartrate (Lopressor) 50 mg BID PO Last administered on 08/17/16 09: 38; Admin Dose 50 MG; Start 08/15/16 at 15:00 Diagnostic Test (Pha) (Accucheck) 1 ea 02 XX ; Start 08/16/16 at 02:00 Methimazole (Tapazole) 20 mg DAILY PO Last administered on 08/17/16 09:39; Admin Dose 20 MG; Start 08/15/16 at 15:00 Insulin Glargine (Lantus) 22 unit HS SC Last administered on 08/16/16 21:18; Admin Dose 22 UNIT; Start 08/15/16 at 21:00 Linagliptin (Tradjenta) 5 mg DAILY PO Last administered on 08/17/16 09:38; Admin Dose 5 MG; Start 08/15/16 at 18:30 Rifampin 600 mg 600 mg DAILY PO Last administered on 08/17/16 09:38; Admin Dose 600 MG; Start 08/16/16 at 16:30 Ceftriaxone Sodium 50 ml @ 100 mls/hr Q24H IVPB Last administered on 15:41; Admin Dose 100 MLS/HR; Start 08/16/16 at 15:30 Vancomycin HCl/ Sodium Chloride (Vancocin/NS) 150 ml @ 75 mls/hr Q12H IVPB Last administered on 08/17/16 06:17; Admin Dose 75 MLS/HR; Start 08/16/16 at 17 :00 IV Flush (NS 10 ml) 10 ml PRN PRN IV IV PROTOCOL; Start 08/16/16 at 15:30 Collagenase (Santyl) 1 applic DAILY TOP ; Start 08/17/16 at 09:00 Furosemide (Lasix) 20 mg ONCE IV ; Start 08/17/16 at 08:00; Stop 08/18/16 at 07: 59 Assessment/Plan Chief Complaint/Hosp Course MICROBIOLOGY: Blood culture growing MRSA. Urine culture growing E. coli and MRSA. Nares swab came back positive for MRSA. Wound culture preliminary growing Staphylococcus aureus. ANTIMICROBIALS: 1. Vancomycin. 2. Rifampin 3. Rocephin INDWELLINGS: Lundy catheter. PHYSICAL EXAMINATION: GENERAL: Fragile, elderly woman who is lying comfortably in bed. Patient is awake and follows commands. HEENT: Head atraumatic, normocephalic. Sclerae anicteric. Buccal mucosa dry. NECK: Supple, trachea midline. CHEST: Rise symmetrical. Breath sounds clear, diminished to bases. HEART: S1, S2. ABDOMEN: Soft. Bowel tones present. EXTREMITIES: Left upper extremity edema. The patient also has anasarca. ASSESSMENT: 1. Sepsis. 2. Methicillin-resistant Staphylococcus aureus bacteremia. 3. Polymicrobial urinary tract infection with urine culture growing MRSA and E. coli. 4. Bilateral heel cellulitis with open wounds with possible osteomyelitis, right more than left with right foot wound culture preliminary growing Staphylococcus aureus. 5. Methicillin-resistant Staphylococcus aureus nares colonization. 6. Anemia, status post hematemesis and EGD that revealed Faye-Johnson tear and chronic gastritis. 7. History of atrial fibrillation and congestive heart failure. 8. History of cerebrovascular accident. 9. Diabetes. PLAN: The patient remains stable. Continue on current abx, pending wound debridement per podiatry rec-s. Continue anti-aspiration measures, left upper extremity elevation. Repeat bld cx DW staff DW Dr Hinds Problems: DEMAR VILLALOBOS NP Aug 17, 2016 15:24
[2016-08-17] MEDS: COLLAGENASE 30 GM TUBE TOP SCH (16:00)
[2016-08-17] MEDS: CEFTRIAXONE 1 GM/50 ML (PMX) 50 ML IVPB SCH (16:50)
[2016-08-17] MEDS: ATORVASTATIN 10 MG TAB PO SCH (21:57)
[2016-08-17] MEDS: INSULIN GLARGINE [LANtus] 3 ML PEN SC SCH (22:02)
[2016-08-18] VITALS (11 sets, daily range): BP systolic 107–145; BP diastolic 57–71; PULSE 87–117; RESP 17–19
[2016-08-18] MEDS: ACCUCHECK XX SCH (02:00)
[2016-08-18] MEDS: SOD CHLORIDE 0.9% 1,000 ML IV SCH ×2 (02:11→06:30)
[2016-08-18] MEDS: VANCOMYCIN 750 MG in SOD CHLORIDE 0.9% 150 ML IVPB SCH (06:32)
[2016-08-18] MEDS: PANTOPRAZOLE IV 80 MG in SOD CHLORIDE 0.9% 100 ML IV SCH ×2 (06:34→16:00)
--- NOTE | 2016-08-18 06:59 | CONS ---
DATE OF ADMISSION: 08/14/2016 DATE OF CONSULTATION: 08/16/2016 TYPE OF CONSULTATION: Podiatry. REASON FOR CONSULTATION: Bilateral foot ulcerations. REFERRING PHYSICIAN: Karsten Garcia NP HISTORY OF PRESENT ILLNESS: This is a 80-year-old female who was noted to have ulcerations upon adm ission and was asked to evaluate. She was brought initially from [facility] in by a mbulance for her nausea and vomiting. The patient admitted and being monitored in telemetry current ly for gastrointestinal bleed, atrial fibrillation and sepsis. PAST MEDICAL HISTORY: History of cerebrovascular accident, essential hypertension, diastolic conges tive heart failure, atrial fibrillation, dyslipidemia, peripheral vascular disease, GERD, anxiety, h yperthyroidism. PAST SURGICAL HISTORY: History of and T and A. SOCIAL HISTORY: The patient resides at [facility]. Does not smoke, drink o r abuse drugs. ALLERGIES: NONE. MEDICATIONS: Include vancomycin, Bactroban ointment, ceftriaxone, rifampin, Santyl. PHYSICAL EXAMINATION: VITAL SIGNS: Temperature 98.2, pulse 101, respiratory rate 18, blood pressure 116/56, pulse oximetr y is 98 on room air. GENERAL: Patient awake, confused. HEENT: Head is normocephalic. Trachea is midline. PULMONARY: Regular respiration. EXTREMITIES: The patient has bilateral lower extremity edema. 2+ DP, PT bilaterally. Patient with n umerous ulcerations bilaterally. Right plantar heel wound of approximately 4 x 6 cm, probes down to bone. There is presence of granulation tissue formation, extensive tissue loss of skin, adipose and muscle. The patient has an unstageable wound to the medial aspect of the right first metatarsophal angeal joint measuring approximately 2 x 1 cm of unstageable depth. The patient has unstageable esch ars on the plantar aspect of the left foot and ulceration on the posterior heel measuring approximat carmelita 3 x 1 cm. There is a slight malodor to the wounds. Unable to perform a neuromotor examination due to patient cooperation. The patient has dystrophic nails. LABORATORIES: WBC 16.6, hemoglobin 7.8, hematocrit 23.6, platelets 294, sodium 138, potassium 3.7, chloride 110, CO2 20, BUN 30, creatinine 0.64. Cultures right heel revealing MRSA. Blood cultures with MRSA. Urine cultures Staph aureus. Urine c ulture E. coli and MRSA. Extremity venous study, no evidence of deep vein thrombosis of the left upper extremity. Brain CT: No acute intracranial hemorrhage or extraaxial fluid collection, mild generalized cerebra l volume loss and minimal chronic microvascular ischemic changes. Chest x-ray: No evidence of cardiopulmonary disease. ASSESSMENT: 1. Chronic nonhealing ulcerations bilateral feet. 2. Differential diagnosis decubitus ulceration with suspect osteomyelitis of the right heel. 3. Decubitus ulceration left heel stage II. 4. Cellulitis with MRSA infection to right heel. 5. Sepsis. 6. Polymicrobial urinary tract infection with methicillin-resistant Staphylococcus aureus and Esche richia coli. 7. Anemia. 8. History of hyperthyroidism with atrial fibrillation and congestive heart failure. 9. Cerebrovascular accident. 10. Generalized weakness. The patient is bedbound. PLAN: The patient seen and evaluated. The patient has decubitus ulcerations noted upon admission w hich were acquired elsewhere. Patient using appropriate mattress. Cultures obtained and reviewed re vealed MRSA. Obtain radiographs of bilateral feet. Given presence of cellulitis would benefit from debridement, can performed with local anesthesia at bedside. Obtained consent. The patient currently using antiseptic solution for cleansing and Santyl to the wound. Thank you for this consultation. We will continue to follow along. Dictated By: ANNI BUSTAMANTE/TIN Conf#: [id number] DID#: [id number]
[2016-08-18 07:34] LABS: BASOPHILS % 0.3 % (0.0-2.0); EOSINOPHILS # 0.1 10^3/ul (0.0-0.5); EOSINOPHILS % 0.9 % (0.0-7.0); LYMPHOCYTES # 2.1 10^3/ul (0.8-2.9); LYMPHOCYTES % 15.8 % (15.0-51.0); MEAN CORPUSCULAR HEMOGLOBIN 28.6 pg (29.0-33.0); MEAN CORPUSCULAR HGB CONC 33.3 g/dl (32.0-37.0); MEAN PLATELET VOLUME 8.3 fl (7.4-10.4); MONOCYTE # 0.2 10^3/ul (0.3-0.9); MONOCYTES % 1.9 % (0.0-11.0); NEUTROPHIL # 10.5 10^3/ul (1.6-7.5); NEUTROPHILS % 81.1 % (39.0-77.0); PLATELET COUNT 249 10^3/UL (140-440); RED BLOOD COUNT 3.14 10^6/ul (4.20-5.40); RED CELL DISTRIBUTION WIDTH 15.8 % (11.5-14.5)
[2016-08-18 07:40] LABS: POTASSIUM 3.4 mmol/L (3.5-5.1)
[2016-08-18 07:42] LABS: CREATININE 0.66 mg/dl (0.44-1.00)
[2016-08-18 07:43] LABS: CALCIUM 7.3 mg/dl (8.4-10.2)
[2016-08-18 07:47] LABS: MAGNESIUM 1.4 mg/dl (1.7-2.5); PHOSPHORUS 3.6 mg/dl (2.5-4.9)
[2016-08-18] MEDS: INSULIN ASPART [NOVOLOG] 3 ML PEN SC SCH ×7 (07:55→22:03)
[2016-08-18 08:01] LABS: CONDITION 1; LH ANALYZER COMMENTS 1
[2016-08-18] MEDS: METHIMAZOLE 5 MG TAB PO SCH (09:34)
[2016-08-18] MEDS: METOPROLOL 50 MG TAB PO SCH ×2 (09:38→22:00)
[2016-08-18] MEDS: RIFAMPIN 300 MG CAP PO SCH (09:39)
[2016-08-18] MEDS: COLLAGENASE 30 GM TUBE TOP SCH (09:39)
--- NOTE | 2016-08-18 11:16 | RADRPT ---
PROCEDURE: XR Left Foot. CLINICAL INDICATION: left heel ulceration TECHNIQUE: AP, lateral and oblique views of the left foot was obtained. COMPARISON: None. FINDINGS: The bones are osteopenic. There is no evidence of acute fractures or dislocations. There are no fo mily bony blastic or lytic lesions. There are calcaneal spurs present. There is suggestion of an ul ceration along the posterior left heel . No underlying foreign body. IMPRESSION: 1. There is suggestion of a soft tissue ulceration along the posterior left heel. 2. No evidence of fracture or dislocation. 3. Osteopenia without focal bony blastic or lytic lesion. RPTAT:AAJJ Physician Cristino Date Time Electronically viewed and signed by Physician Cristino on 08/18/2016 11:16 /
--- NOTE | 2016-08-18 11:18 | RADRPT ---
PROCEDURE: XR Foot. CLINICAL INDICATION: Right humeral ulceration TECHNIQUE: AP, lateral and oblique views of the right foot was obtained. COMPARISON: None. FINDINGS: There is deformity of the mid to posterior right calcaneus likely due to old trauma. No acute fract ures or dislocations or erosions. The bones are osteopenic without focal bony blastic or lytic lesi ons. There is thinning of the soft tissues along the posterior calcaneus and an associated ulcerati on may be present. No foreign bodies. IMPRESSION: 1. Deformity of the right calcaneus likely due to old fracture deformity and trauma. Recommend cli nical correlation. 2. Soft tissues thinning along the posterior right calcaneus and an associated ulceration may be pr esent. No foreign bodies. 3. Osteopenia without evidence of osteomyelitis. RPTAT:AAJJ Physician Cristino Date Time Electronically viewed and signed by Physician Cristino on 08/18/2016 11:18 /
[2016-08-18] MEDS ORDERED: POTASSIUM CHLORIDE (SR) 20 MEQ TAB PO STA (11:21)
--- NOTE | 2016-08-18 11:26 | PN ---
Date/Time of Note Date/Time of Note DATE: 08/18/16 TIME: 11:23 Assessment/Plan VTE Prophylaxis VTE Prophylaxis Intervention: SCD's Lines/Catheters IV [facility]ter Type (from [facility]): PICC Line Central line still needed: Yes Urinary Cath still in place: Yes Reason Cath still needed: other (indicate) Assessment/Plan Chief Complaint/Hosp Course 1. Upper gastrointestinal bleeding. The patient was evaluated by gastroenterology. Esophagogastroduodenoscopy revealed a Faye-Johnson tear, chronic gastritis, and nodular duodenitis. Continue proton pump inhibitors. 2. Atrial fibrillation with rapid ventricular response. Currently, the rate is controlled. No anticoagulation because of underlying gastrointestinal bleed. Cardiology following. 3. Sepsis with underlying MRSA bacteremia, infected pressure ulcers, and urinary tract infection. Continue antibiotics. Infectious disease is on the case. 4. Lactic acidosis, most probably secondary to #3. 5. Essential hypertension. Continue antihypertensives. 6. Peripheral vascular disease. Monitor for acute changes. Anticoagulation on hold because of current gastrointestinal bleed. 7. Dyslipidemia. Continue statins. Fasting lipid panel showing low HDL and low total cholesterol. 8. Type 2 diabetes mellitus. Hemoglobin A1c 9.8. Continue sliding scale insulin. 9. Left upper extremity edema. Left upper extremity venous Doppler study negative for any deep venous thrombosis. Continue elevation of left upper extremity. 10. Multiple pressure ulcers. Continue local wound care. Wound care consult. 11. Hyperthyroidism. The patient was started on methimazole. 12. MRSA colonization of the nares. Continue Bactroban. 13. Fluid, electrolytes and nutrition. Carbohydrate controlled, low- cholesterol diet. 14. DVT prophylaxis with serial sequential compression devices. No anticoagulation because of underlying GI bleed. 15. Gastrointestinal prophylaxis with proton pump inhibitors. PLAN: Continue antibiotics as per infectious diseases. Replete magnesium and potassium. Case discussed with Dr. Ying. Problems: Exam/Review of Systems Vital Signs Vitals Vital Signs Date Time Temp Pulse Resp B/P Pulse Ox O2 Delivery O2 Flow Rate FiO2 08/18/16 11:15 98.0 96 17 113/67 94 08/17/16 08:00 Nasal Cannula 4.0 Intake and Output 08/17/16 08/17/16 08/18/16 15:00 23:00 07:00 Intake Total 1930 ml 1320 ml Output Total 1400 ml 900 ml Balance 530 ml 420 ml Exam GENERAL: This is a frail-looking elderly female lying in bed in no apparent distress. HEENT: Head normocephalic and atraumatic. Eyes: Anicteric sclerae. Conjunctivae clear. ENT: Nasal septum is midline. Oral mucosa is dry. NECK: Supple. No JVD noticed. RESPIRATORY: Bilaterally diminished breath sounds. No adventitious breath sounds. No use of accessory muscles of respiration. CARDIAC: Irregularly irregular rhythm. Systolic murmur. ABDOMEN: Soft, nontender and nondistended. Bowel sounds hypoactive in all 4 quadrants. GENITOURINARY: Deferred. EXTREMITIES: No cyanosis, no clubbing. Bilateral lower extremity 1 to 2+ pitting edema. Left upper extremity 2 to 3+ pitting edema. Left upper extremity tenderness upon palpation. Peripheral pulses are diminished. NEUROLOGIC: The patient is awake and alert and oriented x1 to 2. Results Result Diagram: 08/18/16 0608/18/16 06 Results 24 hrs Laboratory Tests Test 08/17/16 12:31 08/17/16 16:49 08/17/16 20:48 08/18/16 06:01 Bedside Glucose 128 179 174 Anion Gap 13 Basophils # 0.0 Basophils % 0.3 Blood Morphology Comment Blood Urea Nitrogen 24 H Calcium Level 7.3 L Carbon Dioxide Level 21 Chloride Level 107 Creatinine 0.66 Eosinophils # 0.1 Eosinophils % 0.9 Glucose Level 87 Hematocrit 27.0 #L Hemoglobin 9.0 #L Lymphocytes # 2.1 Lymphocytes % 15.8 Mean Corpuscular Hemoglobin 28.6 L Mean Corpuscular Hemoglobin Concent 33.3 Mean Corpuscular Volume 86.0 Mean Platelet Volume 8.3 Monocytes # 0.2 L Monocytes % 1.9 Neutrophils # 10.5 H Neutrophils % 81.1 H Nucleated Red Blood Cells # 0.0 Nucleated Red Blood Cells % 0.0 Platelet Count 249 Potassium Level 3.4 L Red Blood Count 3.14 #L Red Cell Distribution Width 15.8 H Sodium Level 138 White Blood Count 13.0 H Test 08/18/16 06:07 08/18/16 07:48 Magnesium Level 1.4 L Phosphorus Level 3.6 Bedside Glucose 101 Medications Medications Current Medications Sodium Chloride (NS) 1,000 ml @ 75 mls/hr [id number] IV Last administered on 08/18t 06:30; Admin Dose 75 MLS/HR; Start 08/13/16 at 15:31 Lorazepam (Ativan) 0.5 mg Q6H PRN IV ANXIETY; Start 08/13/16 at 16:00 Ondansetron HCl (Zofran Inj) 4 mg Q6H PRN IV NAUSEA AND/OR VOMITING; Start 08/13 at 16:00 Nitroglycerin (Nitroglycerin (Sl Tab) 0.4 Mg) 1 tab Q5M PRN SL CHEST PAIN; Start 08/13/16 at 16:00 Acetaminophen (Tylenol Supp) 650 mg Q6H PRN SC PAIN LEVEL 1-3 OR FEVER; Start 08/13/16 at 16:00 Morphine Sulfate (morphine) 2 mg Q4H PRN IV PAIN LEVEL 7-10 Last administered on 08/16/16 15:42; Admin Dose 2 MG; Start 08/13/16 at 16:00 Bisacodyl 5 mg 5 mg DAILY PRN PO CONSTIPATION; Start 08/13/16 at 16:00 Pantoprazole/ Sodium Chloride (Protonix Iv/NS) 100 ml @ 10 mls/hr Q10H IV Last administered on 08/18/16 06:34; Admin Dose 10 MLS/HR; Start 08/13/16 at 16: 00 Miscellaneous Information 1 ea NOTE XX ; Start 08/13/16 at 17:30 Glucose (Glutose) 15 gm Q15M PRN PO DECREASED GLUCOSE; Start 08/13/16 at 17:30 Glucose (Glutose) 22.5 gm Q15M PRN PO DECREASED GLUCOSE; Start 08/13/16 at 17:30 Dextrose (D50w Syringe) 25 ml Q15M PRN IV DECREASED GLUCOSE; Start 08/13/16 at 17:30 Dextrose (D50w Syringe) 50 ml Q15M PRN IV DECREASED GLUCOSE; Start 08/13/16 at 17:30 Glucagon (Glucagen) 1 mg Q15M PRN IM DECREASED GLUCOSE; Start 08/13/16 at 17:30 Glucose (Glutose) 15 gm Q15M PRN BUCCAL DECREASED GLUCOSE; Start 08/13/16 at 17: 30 Mupirocin (Bactroban) 1 applic BID TOP Last administered on 08/17/16 21:58; Admin Dose 1 APPLIC; Start 08/15/16 at 13:00 Atorvastatin Calcium (Lipitor) 10 mg QHS PO Last administered on 08/17/16 21: 57; Admin Dose 10 MG; Start 08/15/16 at 21:00 Metoprolol Tartrate (Lopressor) 50 mg BID PO Last administered on 08/18/16 09: 38; Admin Dose 50 MG; Start 08/15/16 at 15:00 Diagnostic Test (Pha) (Accucheck) 1 ea 02 XX ; Start 08/16/16 at 02:00 Methimazole (Tapazole) 20 mg DAILY PO Last administered on 08/18/16 09:34; Admin Dose 20 MG; Start 08/15/16 at 15:00 Insulin Glargine (Lantus) 22 unit HS SC Last administered on 08/17/16 22:02; Admin Dose 22 UNIT; Start 08/15/16 at 21:00 Linagliptin (Tradjenta) 5 mg DAILY PO Last administered on 08/17/16 09:38; Admin Dose 5 MG; Start 08/15/16 at 18:30 Rifampin 600 mg 600 mg DAILY PO Last administered on 08/18/16 09:39; Admin Dose 600 MG; Start 08/16/16 at 16:30 Ceftriaxone Sodium 50 ml @ 100 mls/hr Q24H IVPB Last administered on 16:50; Admin Dose 100 MLS/HR; Start 08/16/16 at 15:30 Vancomycin HCl/ Sodium Chloride (Vancocin/NS) 150 ml @ 75 mls/hr Q12H IVPB Last administered on 08/18/16 06:32; Admin Dose 75 MLS/HR; Start 08/16/16 at 17 :00 IV Flush (NS 10 ml) 10 ml PRN PRN IV IV PROTOCOL; Start 08/16/16 at 15:30 Collagenase (Santyl) 1 applic DAILY TOP Last administered on 08/18/16 09:39; Admin Dose 1 APPLIC; Start 08/17/16 at 09:00 Miscellaneous Information (*Rx Drug Level Order Reminder*) VANCO TR LEVEL PRIOR... ONCE ONCE XX ; Start 08/18/16 at 16:00; Stop 08/18/16 at 16:01 DANN HAY NP Aug 18, 2016 11:26
[2016-08-18] MEDS: MUPIROCIN 2% 22 GM OINT TOP SCH ×2 (11:36→22:00)
[2016-08-18] MEDS: LINAGLIPTIN 5 MG TABLET PO SCH (11:37)
--- NOTE | 2016-08-18 12:01 | CONS ---
Date/Time of Note Date/Time of Note DATE: 08/18/16 TIME: 11:59 Assessment/Plan Assessment/Plan Additional Assessment/Plan IMPRESSION: 1. Upper gastrointestinal bleeding, rule out peptic ulcer disease, rule out Faye-Johnson tear, rule out gastroesophageal reflux disease. 2. Hypertension. 3. Cerebrovascular accident. 4. Diabetes mellitus. 5. Hypothyroidism. 6. Anemia.ht 27 now,no acute g.i. bleeding 7. Sepsis with positive blood culture.MRSA,on antibiotics 8. Urinary tract infection. 9. edema upper extremity Plan no further bleeding,further drop in ht.secondary to hydration continue antibiotics monitor H&H Consultation Date/Type/Reason Admit Date/Time Aug 14, 2016 at 01:54 Initial Consult Date 08/15/16 Type of Consultation: ID Referring Provider: SÁNCHEZ WOMACK MD 24 HR Interval Summary Constitutional: improved, no complaints Exam/Review of Systems Vital Signs Vitals Vital Signs Date Time Temp Pulse Resp B/P Pulse Ox O2 Delivery O2 Flow Rate FiO2 08/18/16 11:15 98.0 96 17 113/67 94 08/17/16 08:00 Nasal Cannula 4.0 Intake and Output 08/17/16 08/17/16 08/18/16 15:00 23:00 07:00 Intake Total 1930 ml 1320 ml Output Total 1400 ml 900 ml Balance 530 ml 420 ml Exam Constitutional: alert, oriented, well developed Psych: nl mood/affect, no complaints Head: atraumatic, normocephalic Eyes: EOMI, PERRL, nl conjunctiva, nl lids, nl sclera ENMT: nl external ears & nose, nl lips & teeth, nl nasal mucosa & septum Neck: non-tender, supple Respiratory: clear to auscultation, normal air movement Cardiovascular: nl pulses, regular rate and rhythm Gastrointestinal: nl liver, spleen, non-tender, soft Musculoskeletal: nl extremities to inspection, nl gait and stance Extremities: normal pulses 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, nl mental status, nl speech, nl strength Skin: nl turgor, No rash or lesions Lymph: nl lymph nodes Results Result Diagram: 08/18/16 0601 08/18/16 0601 Results 24 hrs Laboratory Tests Test 08/17/16 12:31 08/17/16 16:49 08/17/16 20:48 08/18/16 06:01 Bedside Glucose 128 179 174 Anion Gap 13 Basophils # 0.0 Basophils % 0.3 Blood Morphology Comment Blood Urea Nitrogen 24 H Calcium Level 7.3 L Carbon Dioxide Level 21 Chloride Level 107 Creatinine 0.66 Eosinophils # 0.1 Eosinophils % 0.9 Glucose Level 87 Hematocrit 27.0 #L Hemoglobin 9.0 #L Lymphocytes # 2.1 Lymphocytes % 15.8 Mean Corpuscular Hemoglobin 28.6 L Mean Corpuscular Hemoglobin Concent 33.3 Mean Corpuscular Volume 86.0 Mean Platelet Volume 8.3 Monocytes # 0.2 L Monocytes % 1.9 Neutrophils # 10.5 H Neutrophils % 81.1 H Nucleated Red Blood Cells # 0.0 Nucleated Red Blood Cells % 0.0 Platelet Count 249 Potassium Level 3.4 L Red Blood Count 3.14 #L Red Cell Distribution Width 15.8 H Sodium Level 138 White Blood Count 13.0 H Test 08/18/16 06:07 08/18/16 07:48 08/18/16 11:30 Magnesium Level 1.4 L Phosphorus Level 3.6 Bedside Glucose 101 105 Medications Medications Current Medications Sodium Chloride (NS) 1,000 ml @ 75 mls/hr [id number] IV Last administered on 08/18 06:30; Admin Dose 75 MLS/HR; Start 08/13/16 at 15:31 Lorazepam (Ativan) 0.5 mg Q6H PRN IV ANXIETY; Start 08/13/16 at 16:00 Ondansetron HCl (Zofran Inj) 4 mg Q6H PRN IV NAUSEA AND/OR VOMITING; Start 08/13 at 16:00 Nitroglycerin (Nitroglycerin (Sl Tab) 0.4 Mg) 1 tab Q5M PRN SL CHEST PAIN; Start 08/13/16 at 16:00 Acetaminophen (Tylenol Supp) 650 mg Q6H PRN [place] PAIN LEVEL 1-3 OR FEVER; Start 08/13/16 at 16:00 Morphine Sulfate (morphine) 2 mg Q4H PRN IV PAIN LEVEL 7-10 Last administered on 08/16/16 15:42; Admin Dose 2 MG; Start 08/13/16 at 16:00 Bisacodyl 5 mg 5 mg DAILY PRN PO CONSTIPATION; Start 08/13/16 at 16:00 Pantoprazole/ Sodium Chloride (Protonix Iv/NS) 100 ml @ 10 mls/hr Q10H IV Last administered on 08/18/16 06:34; Admin Dose 10 MLS/HR; Start 08/13/16 at 16: 00 Miscellaneous Information 1 ea NOTE XX ; Start 08/13/16 at 17:30 Glucose (Glutose) 15 gm Q15M PRN PO DECREASED GLUCOSE; Start 08/13/16 at 17:30 Glucose (Glutose) 22.5 gm Q15M PRN PO DECREASED GLUCOSE; Start 08/13/16 at 17:30 Dextrose (D50w Syringe) 25 ml Q15M PRN IV DECREASED GLUCOSE; Start 08/13/16 at 17:30 Dextrose (D50w Syringe) 50 ml Q15M PRN IV DECREASED GLUCOSE; Start 08/13/16 at 17:30 Glucagon (Glucagen) 1 mg Q15M PRN IM DECREASED GLUCOSE; Start 08/13/16 at 17:30 Glucose (Glutose) 15 gm Q15M PRN BUCCAL DECREASED GLUCOSE; Start 08/13/16 at 17: 30 Mupirocin (Bactroban) 1 applic BID TOP Last administered on 08/18/16 11:36; Admin Dose 1 APPLIC; Start 08/15/16 at 13:00 Atorvastatin Calcium (Lipitor) 10 mg QHS PO Last administered on 08/17/16 21: 57; Admin Dose 10 MG; Start 08/15/16 at 21:00 Metoprolol Tartrate (Lopressor) 50 mg BID PO Last administered on 08/18/16 09: 38; Admin Dose 50 MG; Start 08/15/16 at 15:00 Diagnostic Test (Pha) (Accucheck) 1 ea 02 XX ; Start 08/16/16 at 02:00 Methimazole (Tapazole) 20 mg DAILY PO Last administered on 08/18/16 09:34; Admin Dose 20 MG; Start 08/15/16 at 15:00 Insulin Glargine (Lantus) 22 unit HS SC Last administered on 08/17/16 22:02; Admin Dose 22 UNIT; Start 08/15/16 at 21:00 Linagliptin (Tradjenta) 5 mg DAILY PO Last administered on 08/18/16 11:37; Admin Dose 5 MG; Start 08/15/16 at 18:30 Rifampin 600 mg 600 mg DAILY PO Last administered on 08/18/16 09:39; Admin Dose 600 MG; Start 08/16/16 at 16:30 Ceftriaxone Sodium 50 ml @ 100 mls/hr Q24H IVPB Last administered on 16:50; Admin Dose 100 MLS/HR; Start 08/16/16 at 15:30 Vancomycin HCl/ Sodium Chloride (Vancocin/NS) 150 ml @ 75 mls/hr Q12H IVPB Last administered on 08/18/16 06:32; Admin Dose 75 MLS/HR; Start 08/16/16 at 17 :00 IV Flush (NS 10 ml) 10 ml PRN PRN IV IV PROTOCOL; Start 08/16/16 at 15:30 Collagenase (Santyl) 1 applic DAILY TOP Last administered on 08/18/16 09:39; Admin Dose 1 APPLIC; Start 08/17/16 at 09:00 Miscellaneous Information VANCO TR LEVEL PRIOR... ONCE ONCE XX ; Start at 16:00; Stop 08/18/16 at 16:01 Magnesium Sulfate/ Sodium Chloride (Magnesium Sulfate/NS) 106 ml @ 35.333 mls/ hr ONCE ONCE IVPB ; Start 08/18/16 at 13:00; Stop 08/18/16 at 15:59 CHANCE QUEZADA MD Aug 18, 2016 12:00
--- NOTE | 2016-08-18 12:40 | CONS ---
Date/Time of Note Date/Time of Note DATE: 08/18/16 TIME: 12:39 Assessment/Plan Assessment/Plan Additional Assessment/Plan Sepsis with positive blood cultures Atrial fibrillation with rapid ventricular rates, improved Acute blood loss anemia Preserved ejection fraction Hyperthyroidism History of congestive heart failure History of hypertension History of CVA Possible GI bleed Diabetes -Heart rate trend well-controlled on current dose of beta sha. Antibiotics as per primary team. No anticoagulation at the current time given severe anemia requiring blood transfusion Consultation Date/Type/Reason Admit Date/Time Aug 14, 2016 at 01:54 Initial Consult Date 08/15/16 Type of Consultation: cv Referring Provider: SÁNCHEZ WOMACK MD 24 HR Interval Summary Free Text/Dictation Patient denies palpitations, chest pain or shortness of breath Exam/Review of Systems Vital Signs Vitals Vital Signs Date Time Temp Pulse Resp B/P Pulse Ox O2 Delivery O2 Flow Rate FiO2 08/18/16 11:15 98.0 96 17 113/67 94 08/17/16 08:00 Nasal Cannula 4.0 Intake and Output 08/17/16 08/17/16 08/18/16 15:00 23:00 07:00 Intake Total 1930 ml 1320 ml Output Total 1400 ml 900 ml Balance 530 ml 420 ml Exam Sleeping but arousable, no apparent distress, follows commands Head: normocephalic Neck: supple Respiratory: other (course breath sounds bilaterally, no wheezing) Cardiovascular: irregular rhythm, other (S1 and S2 heard) Gastrointestinal: bowel sounds, non-tender, soft Extremities: edema Results Result Diagram: 08/18/16 0601 08/18/16 0601 Results 24 hrs Laboratory Tests Test 08/17/16 16:49 08/17/16 20:48 08/18/16 06:01 08/18/16 06:07 Bedside Glucose 179 174 Anion Gap 13 Basophils # 0.0 Basophils % 0.3 Blood Morphology Comment Blood Urea Nitrogen 24 H Calcium Level 7.3 L Carbon Dioxide Level 21 Chloride Level 107 Creatinine 0.66 Eosinophils # 0.1 Eosinophils % 0.9 Glucose Level 87 Hematocrit 27.0 #L Hemoglobin 9.0 #L Lymphocytes # 2.1 Lymphocytes % 15.8 Mean Corpuscular Hemoglobin 28.6 L Mean Corpuscular Hemoglobin Concent 33.3 Mean Corpuscular Volume 86.0 Mean Platelet Volume 8.3 Monocytes # 0.2 L Monocytes % 1.9 Neutrophils # 10.5 H Neutrophils % 81.1 H Nucleated Red Blood Cells # 0.0 Nucleated Red Blood Cells % 0.0 Platelet Count 249 Potassium Level 3.4 L Red Blood Count 3.14 #L Red Cell Distribution Width 15.8 H Sodium Level 138 White Blood Count 13.0 H Magnesium Level 1.4 L Phosphorus Level 3.6 Test 08/18/16 07:48 08/18/16 11:30 Bedside Glucose 101 105 Medications Medications Current Medications Sodium Chloride (NS) 1,000 ml @ 75 mls/hr [id number] IV Last administered on 08/18 06:30; Admin Dose 75 MLS/HR; Start 08/13/16 at 15:31 Lorazepam (Ativan) 0.5 mg Q6H PRN IV ANXIETY; Start 08/13/16 at 16:00 Ondansetron HCl (Zofran Inj) 4 mg Q6H PRN IV NAUSEA AND/OR VOMITING; Start 08/13 at 16:00 Nitroglycerin (Nitroglycerin (Sl Tab) 0.4 Mg) 1 tab Q5M PRN SL CHEST PAIN; Start 08/13/16 at 16:00 Acetaminophen (Tylenol Supp) 650 mg Q6H PRN [place] PAIN LEVEL 1-3 OR FEVER; Start 08/13/16 at 16:00 Morphine Sulfate (morphine) 2 mg Q4H PRN [place] PAIN LEVEL 7-10 Last administered on 08/16/16 15:42; Admin Dose 2 MG; Start 08/13/16 at 16:00 Bisacodyl 5 mg 5 mg DAILY PRN PO CONSTIPATION; Start 08/13/16 at 16:00 Pantoprazole/ Sodium Chloride (Protonix Iv/NS) 100 ml @ 10 mls/hr Q10H IV Last administered on 08/18/16 06:34; Admin Dose 10 MLS/HR; Start 08/13/16 at 16: 00 Miscellaneous Information 1 ea NOTE XX ; Start 08/13/16 at 17:30 Glucose (Glutose) 15 gm Q15M PRN PO DECREASED GLUCOSE; Start 08/13/16 at 17:30 Glucose (Glutose) 22.5 gm Q15M PRN PO DECREASED GLUCOSE; Start 08/13/16 at 17:30 Dextrose (D50w Syringe) 25 ml Q15M PRN IV DECREASED GLUCOSE; Start 08/13/16 at 17:30 Dextrose (D50w Syringe) 50 ml Q15M PRN IV DECREASED GLUCOSE; Start 08/13/16 at 17:30 Glucagon (Glucagen) 1 mg Q15M PRN IM DECREASED GLUCOSE; Start 08/13/16 at 17:30 Glucose (Glutose) 15 gm Q15M PRN BUCCAL DECREASED GLUCOSE; Start 08/13/16 at 17: 30 Mupirocin (Bactroban) 1 applic BID TOP Last administered on 08/18/16 11:36; Admin Dose 1 APPLIC; Start 08/15/16 at 13:00 Atorvastatin Calcium (Lipitor) 10 mg QHS PO Last administered on 08/17/16 21: 57; Admin Dose 10 MG; Start 08/15/16 at 21:00 Metoprolol Tartrate (Lopressor) 50 mg BID PO Last administered on 08/18/16 09: 38; Admin Dose 50 MG; Start 08/15/16 at 15:00 Diagnostic Test (Pha) (Accucheck) 1 ea 02 XX ; Start 08/16/16 at 02:00 Methimazole (Tapazole) 20 mg DAILY PO Last administered on 08/18/16 09:34; Admin Dose 20 MG; Start 08/15/16 at 15:00 Insulin Glargine (Lantus) 22 unit HS SC Last administered on 08/17/16 22:02; Admin Dose 22 UNIT; Start 08/15/16 at 21:00 Linagliptin (Tradjenta) 5 mg DAILY PO Last administered on 08/18/16 11:37; Admin Dose 5 MG; Start 08/15/16 at 18:30 Rifampin 600 mg 600 mg DAILY PO Last administered on 08/18/16 09:39; Admin Dose 600 MG; Start 08/16/16 at 16:30 Ceftriaxone Sodium 50 ml @ 100 mls/hr Q24H IVPB Last administered on 16:50; Admin Dose 100 MLS/HR; Start 08/16/16 at 15:30 Vancomycin HCl/ Sodium Chloride (Vancocin/NS) 150 ml @ 75 mls/hr Q12H IVPB Last administered on 08/18/16 06:32; Admin Dose 75 MLS/HR; Start 08/16/16 at 17 :00 IV Flush (NS 10 ml) 10 ml PRN PRN IV IV PROTOCOL; Start 08/16/16 at 15:30 Collagenase (Santyl) 1 applic DAILY TOP Last administered on 08/18/16t 09:39; Admin Dose 1 APPLIC; Start 08/17/16 at 09:00 Miscellaneous Information VANCO TR LEVEL PRIOR... ONCE ONCE XX ; Start at 16:00; Stop 08/18/16 at 16:01 Magnesium Sulfate/ Sodium Chloride (Magnesium Sulfate/NS) 106 ml @ 35.333 mls/ hr ONCE ONCE IVPB ; Start 08/18/16 at 13:00; Stop 08/18/16 at 15:59 Shawn Lozada DO Aug 18, 2016 12:40
[2016-08-18] MEDS ORDERED: MAGNESIUM SULFATE 3 GM in SOD CHLORIDE 0.9% 100 ML IVPB ONE (13:00)
[2016-08-18] MEDS: CEFTRIAXONE 1 GM/50 ML (PMX) 50 ML IVPB SCH (18:31)
--- NOTE | 2016-08-18 20:07 | CONS ---
Date/Time of Note Date/Time of Note DATE: 08/18/16 TIME: 20:05 Consult Date/Type/Reason Admit Date/Time Aug 14, 2016 at 01:54 Initial Consult Date 08/15/16 Type of Consultation: id Ordering Provider: SÁNCHEZ WOMACK MD Subjective no acute changes, looks comfortable, no fevers, nad Objective Vital Signs Date Time Temp Pulse Resp B/P Pulse Ox O2 Delivery O2 Flow Rate FiO2 08/18/16 16:20 87 08/18/16 15:23 98.6 18 117/61 95 08/17/16 08:00 Nasal Cannula 4.0 Intake and Output 08/17/16 08/17/16 08/18/16 15:00 23:00 07:00 Intake Total 1930 ml 1320 ml Output Total 1400 ml 900 ml Balance 530 ml 420 ml Results/Medications Result Diagram: 08/18/16 0601 08/18/16 0601 Results 24 hrs Laboratory Tests Test 08/17/16 20:48 08/18/16 06:01 08/18/16 06:07 08/18/16 07:48 Bedside Glucose 174 101 Anion Gap 13 Basophils # 0.0 Basophils % 0.3 Blood Morphology Comment Blood Urea Nitrogen 24 H Calcium Level 7.3 L Carbon Dioxide Level 21 Chloride Level 107 Creatinine 0.66 Eosinophils # 0.1 Eosinophils % 0.9 Glucose Level 87 Hematocrit 27.0 #L Hemoglobin 9.0 #L Lymphocytes # 2.1 Lymphocytes % 15.8 Mean Corpuscular Hemoglobin 28.6 L Mean Corpuscular Hemoglobin Concent 33.3 Mean Corpuscular Volume 86.0 Mean Platelet Volume 8.3 Monocytes # 0.2 L Monocytes % 1.9 Neutrophils # 10.5 H Neutrophils % 81.1 H Nucleated Red Blood Cells # 0.0 Nucleated Red Blood Cells % 0.0 Platelet Count 249 Potassium Level 3.4 L Red Blood Count 3.14 #L Red Cell Distribution Width 15.8 H Sodium Level 138 White Blood Count 13.0 H Magnesium Level 1.4 L Phosphorus Level 3.6 Test 08/18/16 11:30 08/18/16 16:20 08/18/16 18:23 Bedside Glucose 105 95 Vancomycin Level Trough 18.7 Medications Current Medications Sodium Chloride (NS) 1,000 ml @ 75 mls/hr [id number] IV Last administered on 08/18 06:30; Admin Dose 75 MLS/HR; Start 08/13/16 at 15:31 Lorazepam (Ativan) 0.5 mg Q6H PRN IV ANXIETY; Start 08/13/16 at 16:00 Ondansetron HCl (Zofran Inj) 4 mg Q6H PRN IV NAUSEA AND/OR VOMITING; Start 08/13 at 16:00 Nitroglycerin (Nitroglycerin (Sl Tab) 0.4 Mg) 1 tab Q5M PRN SL CHEST PAIN; Start 08/13/16 at 16:00 Acetaminophen (Tylenol Supp) 650 mg Q6H PRN [place] PAIN LEVEL 1-3 OR FEVER; Start 08/13/16 at 16:00 Morphine Sulfate (morphine) 2 mg Q4H PRN IV PAIN LEVEL 7-10 Last administered on 08/16/16 15:42; Admin Dose 2 MG; Start 08/13/16 at 16:00 Bisacodyl 5 mg 5 mg DAILY PRN PO CONSTIPATION; Start 08/13/16 at 16:00 Pantoprazole/ Sodium Chloride (Protonix Iv/NS) 100 ml @ 10 mls/hr Q10H IV Last administered on 08/18/16 06:34; Admin Dose 10 MLS/HR; Start 08/13/16 at 16: 00 Miscellaneous Information 1 ea NOTE XX ; Start 08/13/16 at 17:30 Glucose (Glutose) 15 gm Q15M PRN PO DECREASED GLUCOSE; Start 08/13/16 at 17:30 Glucose (Glutose) 22.5 gm Q15M PRN PO DECREASED GLUCOSE; Start 08/13/16 at 17:30 Dextrose (D50w Syringe) 25 ml Q15M PRN IV DECREASED GLUCOSE; Start 08/13/16 at 17:30 Dextrose (D50w Syringe) 50 ml Q15M PRN IV DECREASED GLUCOSE; Start 08/13/16 at 17:30 Glucagon (Glucagen) 1 mg Q15M PRN IM DECREASED GLUCOSE; Start 08/13/16 at 17:30 Glucose (Glutose) 15 gm Q15M PRN BUCCAL DECREASED GLUCOSE; Start 08/13/16 at 17: 30 Mupirocin (Bactroban) 1 applic BID TOP Last administered on 08/18/16 11:36; Admin Dose 1 APPLIC; Start 08/15/16 at 13:00 Atorvastatin Calcium (Lipitor) 10 mg QHS PO Last administered on 08/17/16 21: 57; Admin Dose 10 MG; Start 08/15/16 at 21:00 Metoprolol Tartrate (Lopressor) 50 mg BID PO Last administered on 08/18/16 09: 38; Admin Dose 50 MG; Start 08/15/16 at 15:00 Diagnostic Test (Pha) (Accucheck) 1 ea 02 XX ; Start 08/16/16 at 02:00 Methimazole (Tapazole) 20 mg DAILY PO Last administered on 08/18/16 09:34; Admin Dose 20 MG; Start 08/15/16 at 15:00 Insulin Glargine (Lantus) 22 unit HS SC Last administered on 08/17/16 22:02; Admin Dose 22 UNIT; Start 08/15/16 at 21:00 Linagliptin (Tradjenta) 5 mg DAILY PO Last administered on 08/18/16 11:37; Admin Dose 5 MG; Start 08/15/16 at 18:30 Rifampin 600 mg 600 mg DAILY PO Last administered on 08/18/16 09:39; Admin Dose 600 MG; Start 08/16/16 at 16:30 Ceftriaxone Sodium (Rocephin) 50 ml @ 100 mls/hr Q24H IVPB Last administered on 08/18/16 18:31; Admin Dose 100 MLS/HR; Start 08/16/16 at 15:30 IV Flush (NS 10 ml) 10 ml PRN PRN IV IV PROTOCOL; Start 08/16/16 at 15:30 Collagenase 1 applic 1 applic DAILY TOP Last administered on 08/18/16 09:39; Admin Dose 1 APPLIC; Start 08/17/16 at 09:00 Vancomycin HCl/ Sodium Chloride (Vancocin/NS) 250 ml @ 83.333 mls/ hr Q24H IVPB ; Start 08/19/16 at 06:00 Assessment/Plan Chief Complaint/Hosp Course MICROBIOLOGY: Blood culture growing MRSA. Urine culture growing E. coli and MRSA. Nares swab came back positive for MRSA. Wound culture growing MRSA/ GNRaureus. ANTIMICROBIALS: 1. Vancomycin. 2. Rifampin 3. Rocephin INDWELLINGS: Lundy catheter. PHYSICAL EXAMINATION: GENERAL: Fragile, elderly woman who is lying comfortably in bed. Patient is awake and follows commands. HEENT: Head atraumatic, normocephalic. Sclerae anicteric. Buccal mucosa dry. NECK: Supple, trachea midline. CHEST: Rise symmetrical. Breath sounds clear, diminished to bases. HEART: S1, S2. ABDOMEN: Soft. Bowel tones present. EXTREMITIES: Left upper extremity edema. The patient also has anasarca. ASSESSMENT: 1. Sepsis. 2. Methicillin-resistant Staphylococcus aureus bacteremia. 3. Polymicrobial urinary tract infection with urine culture growing MRSA and E. coli. 4. Bilateral heel cellulitis with open wounds with possible osteomyelitis, right more than left with right foot wound culture growing MRSA/GNR 5. Methicillin-resistant Staphylococcus aureus nares colonization. 6. Anemia, status post hematemesis and EGD that revealed Faye-Johnson tear and chronic gastritis. 7. History of atrial fibrillation and congestive heart failure. 8. History of cerebrovascular accident. 9. Diabetes. PLAN: The patient remains stable. Repeat bld cx negative. Continue on current abx, pending wound debridement per podiatry rec-s. Continue anti-aspiration measures DW staff Problems: DEMAR VILLALOBOS NP Aug 18, 2016 20:06
[2016-08-18] MEDS: ATORVASTATIN 10 MG TAB PO SCH (22:00)
[2016-08-18] MEDS: INSULIN GLARGINE [LANtus] 3 ML PEN SC SCH (22:03)
[2016-08-19] VITALS (13 sets, daily range): BP systolic 109–122; BP diastolic 58–69; PULSE 82–122; RESP 16–18
[2016-08-19] MEDS: PANTOPRAZOLE IV 80 MG in SOD CHLORIDE 0.9% 100 ML IV SCH (01:39)
[2016-08-19] MEDS: ACCUCHECK XX SCH (01:39)
[2016-08-19] MEDS: SOD CHLORIDE 0.9% 1,000 ML IV SCH ×2 (01:39→18:36)
[2016-08-19] MEDS: VANCOMYCIN 1.25 GM in SOD CHLORIDE 0.9% 250 ML IVPB SCH (06:16)
[2016-08-19] MEDS: INSULIN ASPART [NOVOLOG] 3 ML PEN SC SCH ×7 (07:55→21:42)
[2016-08-19 08:03] LABS: POTASSIUM 3.6 mmol/L (3.5-5.1)
[2016-08-19 08:04] LABS: MAGNESIUM 1.7 mg/dl (1.7-2.5); PHOSPHORUS 3.8 mg/dl (2.5-4.9)
[2016-08-19 08:05] LABS: BASOPHILS % 0.3 % (0.0-2.0); CREATININE 0.57 mg/dl (0.44-1.00); EOSINOPHILS # 0.1 10^3/ul (0.0-0.5); EOSINOPHILS % 1.1 % (0.0-7.0); HEMATOCRIT 25.2 % (37.0-47.0); HEMOGLOBIN 8.4 g/dl (12.0-16.0); LYMPHOCYTES # 1.7 10^3/ul (0.8-2.9); LYMPHOCYTES % 16.1 % (15.0-51.0); MEAN CORPUSCULAR HEMOGLOBIN 28.7 pg (29.0-33.0); MEAN CORPUSCULAR HGB CONC 33.4 g/dl (32.0-37.0); MEAN CORPUSCULAR VOLUME 85.8 fl (82.0-101.0); MEAN PLATELET VOLUME 7.9 fl (7.4-10.4); MONOCYTE # 0.3 10^3/ul (0.3-0.9); MONOCYTES % 2.9 % (0.0-11.0); NEUTROPHIL # 8.5 10^3/ul (1.6-7.5); NEUTROPHILS % 79.6 % (39.0-77.0); PLATELET COUNT 206 10^3/UL (140-440); RED BLOOD COUNT 2.94 10^6/ul (4.20-5.40); RED CELL DISTRIBUTION WIDTH 16.2 % (11.5-14.5); UNCORRECTED WBC 10.7 10^3/ul (4.8-10.8); WHITE BLOOD COUNT 10.7 10^3/ul (4.8-10.8)
[2016-08-19 08:13] LABS: CONDITION 1; LH ANALYZER COMMENTS 1
--- NOTE | 2016-08-19 08:49 | CONS ---
DATE OF ADMISSION: 08/14/2016 DATE OF CONSULTATION: SUBJECTIVE FINDINGS: The patient is being followed for infected ulcerations of the bilateral feet. The patient had cultures revealing MRSA. The patient is currently being monitored for a gastrointe stinal bleed, atrial fibrillation and sepsis. The patient remains confused. PHYSICAL EXAMINATION: VITAL SIGNS: Temperature 97.9, pulse is 71, respiratory rate 18, blood pressure 121/69. GENERAL: The patient is awake, confused. HEENT: Head is normocephalic, atraumatic. LUNGS: Regular respirations. EXTREMITIES: The patient has bilateral lower extremity edema. Pulses are palpable bilaterally. 2+ DP and PT. The patient has a right heel ulceration, 4 x 6 cm, to bone, with some evidence of g ranulation formation. There is extensive tissue loss. Unstageable wound to the medial aspect of th e first metatarsophalangeal joint, 2 x 1 cm, of unstageable depth, and unstageable eschars on the pl hal aspect of the left foot. Posterior heel 3 x 1 cm, with mild odor to wounds. LABORATORY: WBC trending down,13. Hemoglobin 9, hematocrit 27, platelets 15.8. Glucose is 101. B lood cultures, no growth. Right heel cultures: MRSA and gram-negative rods. ASSESSMENT: 1. Chronic nonhealing ulcerations of bilateral feet. Reviewed radiographs. Right foot reveals a c alcaneal deformity, likely from deformity or trauma. Osteopenia, without evidence of osteomyelitis. Left foot without fracture or dislocation. Osteopenia, without focal blastic or lytic lesion. 2. Cellulitis/methicillin-resistant Staphylococcus aureus. 3. Sepsis. 4. Polymicrobial urinary tract infection. 5. Anemia. 6. Cerebrovascular accident. 7. Generalized weakness. The patient is bedbound. 8. Atrial fibrillation, with rapid ventricular rates. 9. Diabetes. PLAN: The patient was seen and evaluated. Consent for debridement is pending. The patient is unde rgoing daily antiseptic precautions with cleansing with chlorhexidine and application of Santyl. Ca n perform procedure with local anesthesia at the bedside once consent is obtained. Reviewed radiogr aphs. Patient is on vancomycin, rifampin and ceftriaxone. Dictated By: ANNI BUSTAMANTE/TIN Conf#: [id number] DID#: [id number]
[2016-08-19] MEDS: METOPROLOL 50 MG TAB PO SCH ×2 (09:10→21:29)
[2016-08-19] MEDS: LINAGLIPTIN 5 MG TABLET PO SCH (09:10)
[2016-08-19] MEDS: COLLAGENASE 30 GM TUBE TOP SCH (09:10)
[2016-08-19] MEDS: MUPIROCIN 2% 22 GM OINT TOP SCH ×2 (09:10→21:31)
[2016-08-19] MEDS: METHIMAZOLE 5 MG TAB PO SCH (09:11)
[2016-08-19] MEDS: RIFAMPIN 300 MG CAP PO SCH (09:11)
--- NOTE | 2016-08-19 10:52 | CONS ---
Date/Time of Note Date/Time of Note DATE: 08/19/16 TIME: 10:51 Assessment/Plan Assessment/Plan Chief Complaint/Hosp Course ID PROGRESS NOTE TOTAL ABX DAY # => Vanco IV, Ceftriaxone, Rifampin 24H INTERVAL SUMMARY * Awake, alert, ?Blind?, follows commands, left sided hemiplegia - tells me she feels good * No fevers, VSS, NAD PHYSICAL EXAMINATION: GENERAL: 81 yo F HEENT: Unremarkable = eyes remain closed NECK: Supple, trachea midline. CHEST: Rise symmetrical without dyspnea HEART: RRR ABDOMEN: Soft EXTREMITIES: Warm -> BUEXT w/edema L>R, BLEXT DSG C/D/I ID ASSESSMENT: 81 yo F w.PMHx CVA w/left sided hemiparesis admit with: 1. Sepsis w/ Methicillin-resistant Staphylococcus aureus bacteremia. * Leukocytosis = RESOLVED * No fevers 2. Polymicrobial urinary tract infection with urine culture growing MRSA and E. coli. 3. Probable neurogenic bladder 4. Non-healing BLEXT Bilateral heel cellulitis with open wounds, right more than left with right foot wound culture growing MRSA/GNR * X-RAY: Right foot reveals a calcaneal deformity, likely from deformity or trauma. Osteopenia, without evidence of osteomyelitis. * X-RAY: Left foot without fracture or dislocation. Osteopenia, without focal blastic or lytic lesion. 5. Peripheral vascular disease 6. HTN, HLD, Atherosclerosis 7. Diabetes w/suspected DM peripheral neuropathy 8. Atrial fibrillation w/hx of RVR 9. Anemia, status post hematemesis and EGD that revealed Faye-Johnson tear and chronic gastritis. 10. GERD 11. Hyperthyroidism 12. LUEXT Edema (+)MRSA Nares ABX ALLERGY: PCN, SULFA INVASIVES: *PIV CURRENT ABX: # => Vanco IV, Ceftriaxone, Rifampin ID RECOMMENDATIONS: CONTINUE Current ABX & wound care Anticipate at least 14 days Vanco IV for MRSA bacteremia, possible more Further recs APC . . Problems: Consultation Date/Type/Reason Admit Date/Time Aug 14, 2016 at 01:54 Initial Consult Date 08/15/16 Type of Consultation: id Referring Provider: SÁNCHEZ WOMACK MD Exam/Review of Systems Vital Signs Vitals Vital Signs Date Time Temp Pulse Resp B/P Pulse Ox O2 Delivery O2 Flow Rate FiO2 08/19/16 08:20 103 1/14/17 07:13 97.9 18 121/69 96 08/17/16 08:00 Nasal Cannula 4.0 Intake and Output 08/18/16 08/18/16 08/19/16 15:00 23:00 07:00 Intake Total 935 ml Balance 935 ml Results Result Diagram: 08/19/16 0615 08/19/16 0615 Results 24 hrs Laboratory Tests Test 08/18/16 11:30 08/18/16 16:20 08/18/16 18:23 08/18/16 22:03 Bedside Glucose 105 95 92 Vancomycin Level Trough 18.7 Test 08/19/16 05:54 08/19/16 06:15 08/19/16 07:02 08/19/16 08:47 Bedside Glucose 56 L 101 118 Anion Gap 12 Basophils # 0.0 Basophils % 0.3 Blood Morphology Comment Blood Urea Nitrogen 17 Calcium Level 7.0 L Carbon Dioxide Level 21 Chloride Level 107 Creatinine 0.57 Eosinophils # 0.1 Eosinophils % 1.1 Glucose Level 41 #*L Hematocrit 25.2 L Hemoglobin 8.4 L Lymphocytes # 1.7 Lymphocytes % 16.1 Magnesium Level 1.7 Mean Corpuscular Hemoglobin 28.7 L Mean Corpuscular Hemoglobin Concent 33.4 Mean Corpuscular Volume 85.8 Mean Platelet Volume 7.9 Monocytes # 0.3 Monocytes % 2.9 Neutrophils # 8.5 H Neutrophils % 79.6 H Nucleated Red Blood Cells # 0.0 Nucleated Red Blood Cells % 0.0 Phosphorus Level 3.8 Platelet Count 206 Potassium Level 3.6 Red Blood Count 2.94 L Red Cell Distribution Width 16.2 H Sodium Level 136 White Blood Count 10.7 Medications Medications Current Medications Sodium Chloride (NS) 1,000 ml @ 75 mls/hr [id number] IV Last administered on 08/19t 01:39; Admin Dose 75 MLS/HR; Start 08/13/16 at 15:31 Lorazepam (Ativan) 0.5 mg Q6H PRN IV ANXIETY; Start 08/13/16 at 16:00 Ondansetron HCl (Zofran Inj) 4 mg Q6H PRN IV NAUSEA AND/OR VOMITING; Start 08/13 at 16:00 Nitroglycerin (Nitroglycerin (Sl Tab) 0.4 Mg) 1 tab Q5M PRN SL CHEST PAIN; Start 08/13/16 at 16:00 Acetaminophen (Tylenol Supp) 650 mg Q6H PRN [place] PAIN LEVEL 1-3 OR FEVER; Start 08/13/16 at 16:00 Morphine Sulfate (morphine) 2 mg Q4H PRN IV PAIN LEVEL 7-10 Last administered on 08/16/16 15:42; Admin Dose 2 MG; Start 08/13/16 at 16:00 Bisacodyl 5 mg 5 mg DAILY PRN PO CONSTIPATION; Start 08/13/16 at 16:00 Pantoprazole/ Sodium Chloride (Protonix Iv/NS) 100 ml @ 10 mls/hr Q10H IV Last administered on 08/19/16 01:39; Admin Dose 10 MLS/HR; Start 08/13/16 at 16: 00 Miscellaneous Information 1 ea NOTE XX ; Start 08/13/16 at 17:30 Glucose (Glutose) 15 gm Q15M PRN PO DECREASED GLUCOSE; Start 08/13/16 at 17:30 Glucose (Glutose) 22.5 gm Q15M PRN PO DECREASED GLUCOSE; Start 08/13/16 at 17:30 Dextrose (D50w Syringe) 25 ml Q15M PRN IV DECREASED GLUCOSE; Start 08/13/16 at 17:30 Dextrose (D50w Syringe) 50 ml Q15M PRN IV DECREASED GLUCOSE; Start 08/13/16 at 17:30 Glucagon (Glucagen) 1 mg Q15M PRN IM DECREASED GLUCOSE; Start 08/13/16 at 17:30 Glucose (Glutose) 15 gm Q15M PRN BUCCAL DECREASED GLUCOSE; Start 08/13/16 at 17: 30 Mupirocin (Bactroban) 1 applic BID TOP Last administered on 08/19/16 09:10; Admin Dose 1 APPLIC; Start 08/15/16 at 13:00 Atorvastatin Calcium (Lipitor) 10 mg QHS PO Last administered on 08/18/16 22: 00; Admin Dose 10 MG; Start 08/15/16 at 21:00 Metoprolol Tartrate (Lopressor) 50 mg BID PO Last administered on 08/19/16 09: 10; Admin Dose 50 MG; Start 08/15/16 at 15:00 Diagnostic Test (Pha) (Accucheck) 1 ea 02 XX ; Start 08/16/16 at 02:00 Methimazole (Tapazole) 20 mg DAILY PO Last administered on 08/19/16 09:11; Admin Dose 20 MG; Start 08/15/16 at 15:00 Insulin Glargine (Lantus) 22 unit HS SC Last administered on 08/18/16 22:03; Admin Dose 22 UNIT; Start 08/15/16 at 21:00 Linagliptin (Tradjenta) 5 mg DAILY PO Last administered on 08/19/16 09:10; Admin Dose 5 MG; Start 08/15/16 at 18:30 Rifampin 600 mg 600 mg DAILY PO Last administered on 08/19/16 09:11; Admin Dose 600 MG; Start 08/16/16 at 16:30 Ceftriaxone Sodium (Rocephin) 50 ml @ 100 mls/hr Q24H IVPB Last administered on 08/18/16 18:31; Admin Dose 100 MLS/HR; Start 08/16/16 at 15:30 IV Flush (NS 10 ml) 10 ml PRN PRN IV IV PROTOCOL; Start 08/16/16 at 15:30 Collagenase 1 applic 1 applic DAILY TOP Last administered on 08/19/16 09:10; Admin Dose 1 APPLIC; Start 08/17/16 at 09:00 Vancomycin HCl/ Sodium Chloride (Vancocin/NS) 250 ml @ 83.333 mls/ hr Q24H IVPB Last administered on 08/19/16 06:16; Admin Dose 83.333 MLS/HR; Start at 06:00 ALEXANDRA CHAVEZ NP Aug 19, 2016 10:52
--- NOTE | 2016-08-19 12:10 | CONS ---
Date/Time of Note Date/Time of Note DATE: 08/19/16 TIME: 12:09 Assessment/Plan Assessment/Plan Additional Assessment/Plan IMPRESSION: 1. Upper gastrointestinal bleeding, rule out peptic ulcer disease, rule out Faye-Johnson tear, rule out gastroesophageal reflux disease. 2. Hypertension. 3. Cerebrovascular accident. 4. Diabetes mellitus. 5. Hyperthyroidism. 6. Anemia.ht 27 now,no acute g.i. bleeding 7. Sepsis with positive blood culture.MRSA,on antibiotics 8. Urinary tract infection. 9. edema upper extremity Plan no further bleeding,further drop in ht.secondary to hydration continue antibiotics monitor H&H d/c Protonix drip,changed to PO Consultation Date/Type/Reason Admit Date/Time Aug 14, 2016 at 01:54 Initial Consult Date 08/15/16 Type of Consultation: id Referring Provider: SÁNCHEZ WOMACK MD 24 HR Interval Summary Constitutional: no complaints Exam/Review of Systems Vital Signs Vitals Vital Signs Date Time Temp Pulse Resp B/P Pulse Ox O2 Delivery O2 Flow Rate FiO2 08/19/16 11:14 97.6 82 18 116/59 96 08/17/16 08:00 Nasal Cannula 4.0 Intake and Output 08/18/16 08/18/16 08/19/16 15:00 23:00 07:00 Intake Total 935 ml Balance 935 ml Exam Constitutional: alert, oriented, well developed Psych: nl mood/affect, no complaints Head: atraumatic, normocephalic Eyes: EOMI, PERRL, nl conjunctiva, nl lids, nl sclera ENMT: nl external ears & nose, nl lips & teeth, nl nasal mucosa & septum Neck: non-tender, supple Respiratory: clear to auscultation, normal air movement Cardiovascular: nl pulses, regular rate and rhythm Gastrointestinal: nl liver, spleen, non-tender, soft Musculoskeletal: nl extremities to inspection, nl gait and stance Extremities: normal pulses Neurological: MUSIC LIBRARIAN II-XII intact, nl mental status, nl speech, nl strength Skin: nl turgor, No rash or lesions Lymph: nl lymph nodes Results Result Diagram: 08/19/16 0615 08/19/16 0615 Results 24 hrs Laboratory Tests Test 08/18/16 16:20 08/18/16 18:23 08/18/16 22:03 08/19/16 05:54 Vancomycin Level Trough 18.7 Bedside Glucose 95 92 56 L Test 08/19/16 06:15 08/19/16 07:02 08/19/16 08:47 08/19/16 12:05 Anion Gap 12 Basophils # 0.0 Basophils % 0.3 Blood Morphology Comment Blood Urea Nitrogen 17 Calcium Level 7.0 L Carbon Dioxide Level 21 Chloride Level 107 Creatinine 0.57 Eosinophils # 0.1 Eosinophils % 1.1 Glucose Level 41 #*L Hematocrit 25.2 L Hemoglobin 8.4 L Lymphocytes # 1.7 Lymphocytes % 16.1 Magnesium Level 1.7 Mean Corpuscular Hemoglobin 28.7 L Mean Corpuscular Hemoglobin Concent 33.4 Mean Corpuscular Volume 85.8 Mean Platelet Volume 7.9 Monocytes # 0.3 Monocytes % 2.9 Neutrophils # 8.5 H Neutrophils % 79.6 H Nucleated Red Blood Cells # 0.0 Nucleated Red Blood Cells % 0.0 Phosphorus Level 3.8 Platelet Count 206 Potassium Level 3.6 Red Blood Count 2.94 L Red Cell Distribution Width 16.2 H Sodium Level 136 White Blood Count 10.7 Bedside Glucose 101 118 100 Medications Medications Current Medications Sodium Chloride (NS) 1,000 ml @ 75 mls/hr [id number] IV Last administered on 08/19 01:39; Admin Dose 75 MLS/HR; Start 08/13/16 at 15:31 Lorazepam (Ativan) 0.5 mg Q6H PRN IV ANXIETY; Start 08/13/16 at 16:00 Ondansetron HCl (Zofran Inj) 4 mg Q6H PRN IV NAUSEA AND/OR VOMITING; Start 08/13 at 16:00 Nitroglycerin (Nitroglycerin (Sl Tab) 0.4 Mg) 1 tab Q5M PRN SL CHEST PAIN; Start 08/13/16 at 16:00 Acetaminophen (Tylenol Supp) 650 mg Q6H PRN [place] PAIN LEVEL 1-3 OR FEVER; Start 08/13/16 at 16:00 Morphine Sulfate (morphine) 2 mg Q4H PRN IV PAIN LEVEL 7-10 Last administered on 08/16/16 15:42; Admin Dose 2 MG; Start 08/13/16 at 16:00 Bisacodyl (Dulcolax) 5 mg DAILY PRN PO CONSTIPATION; Start 08/13/16 at 16:00 Miscellaneous Information 1 ea NOTE XX ; Start 08/13/16 at 17:30 Glucose (Glutose) 15 gm Q15M PRN PO DECREASED GLUCOSE; Start 08/13/16 at 17:30 Glucose (Glutose) 22.5 gm Q15M PRN PO DECREASED GLUCOSE; Start 08/13/16 at 17:30 Dextrose (D50w Syringe) 25 ml Q15M PRN IV DECREASED GLUCOSE; Start 08/13/16 at 17:30 Dextrose (D50w Syringe) 50 ml Q15M PRN IV DECREASED GLUCOSE; Start 08/13/16 at 17:30 Glucagon (Glucagen) 1 mg Q15M PRN IM DECREASED GLUCOSE; Start 08/13/16 at 17:30 Glucose (Glutose) 15 gm Q15M PRN BUCCAL DECREASED GLUCOSE; Start 08/13/16 at 17: 30 Mupirocin (Bactroban) 1 applic BID TOP Last administered on 08/19/16 09:10; Admin Dose 1 APPLIC; Start 08/15/16 at 13:00 Atorvastatin Calcium (Lipitor) 10 mg QHS PO Last administered on 08/18/16 22: 00; Admin Dose 10 MG; Start 08/15/16 at 21:00 Metoprolol Tartrate (Lopressor) 50 mg BID PO Last administered on 08/19/16 09: 10; Admin Dose 50 MG; Start 08/15/16 at 15:00 Diagnostic Test (Pha) (Accucheck) 1 ea 02 XX ; Start 08/16/16 at 02:00 Methimazole (Tapazole) 20 mg DAILY PO Last administered on 08/19/16 09:11; Admin Dose 20 MG; Start 08/15/16 at 15:00 Insulin Glargine (Lantus) 22 unit HS SC Last administered on 08/18/16 22:03; Admin Dose 22 UNIT; Start 08/15/16 at 21:00 Linagliptin (Tradjenta) 5 mg DAILY PO Last administered on 08/19/16 09:10; Admin Dose 5 MG; Start 08/15/16 at 18:30 Rifampin 600 mg 600 mg DAILY PO Last administered on 08/19/16 09:11; Admin Dose 600 MG; Start 08/16/16 at 16:30 Ceftriaxone Sodium (Rocephin) 50 ml @ 100 mls/hr Q24H IVPB Last administered on 08/18/16 18:31; Admin Dose 100 MLS/HR; Start 08/16/16 at 15:30 IV Flush (NS 10 ml) 10 ml PRN PRN IV IV PROTOCOL; Start 08/16/16 at 15:30 Collagenase 1 applic 1 applic DAILY TOP Last administered on 08/19/16 09:10; Admin Dose 1 APPLIC; Start 08/17/16 at 09:00 Vancomycin HCl/ Sodium Chloride (Vancocin/NS) 250 ml @ 83.333 mls/ hr Q24H IVPB Last administered on 08/19/16 06:16; Admin Dose 83.333 MLS/HR; Start at 06:00 Pantoprazole (Protonix Tab) 40 mg DAILY@06 PO ; Start 08/20/16 at 06:00; Status UNCHANCE CASTREJON MD Aug 19, 2016 12:10
--- NOTE | 2016-08-19 15:23 | PN ---
Date/Time of Note Date/Time of Note DATE: 08/19/16 TIME: 15:22 Assessment/Plan VTE Prophylaxis VTE Prophylaxis Intervention: contraindicated Lines/Catheters IV [facility]atheter Type (from [facility]): PICC Line Central line still needed: Yes Urinary Cath still in place: Yes Reason Cath still needed: skin wounds contaminated by urine Assessment/Plan Chief Complaint/Hosp Course 1. Upper gastrointestinal bleeding. The patient was evaluated by gastroenterology. Esophagogastroduodenoscopy revealed a Faye-Johnson tear, chronic gastritis, and nodular duodenitis. Continue proton pump inhibitors. 2. Atrial fibrillation with rapid ventricular response. Currently, the rate is controlled. No anticoagulation because of underlying gastrointestinal bleed. Cardiology following. 3. Sepsis with underlying MRSA bacteremia, infected pressure ulcers, and urinary tract infection. Continue antibiotics. Infectious disease is on the case. 4. Infected right heel pressure ulcer. Seen and evaluated by podiatry. Pending local debridement. 5. Essential hypertension. Continue antihypertensives. 6. Peripheral vascular disease. Monitor for acute changes. Anticoagulation on hold because of current gastrointestinal bleed. 7. Dyslipidemia. Continue statins. Fasting lipid panel showing low HDL and low total cholesterol. 8. Type 2 diabetes mellitus. Hemoglobin A1c 9.8. Continue sliding scale insulin. 9. Left upper extremity edema. Left upper extremity venous Doppler study negative for any deep venous thrombosis. Continue elevation of left upper extremity. 10. Multiple pressure ulcers. Continue local wound care. Wound care consult. 11. Hyperthyroidism. The patient was started on methimazole. 12. MRSA colonization of the nares. Continue Bactroban. 13. Fluid, electrolytes and nutrition. Carbohydrate controlled, low- cholesterol diet. 14. DVT prophylaxis with serial sequential compression devices. No anticoagulation because of underlying GI bleed. 15. Gastrointestinal prophylaxis with proton pump inhibitors. PLAN: Continue antibiotics as per infectious diseases. Continue in-house monitoring. Case discussed with Dr. Ying. Problems: Subjective 24 Hr Interval Summary Free Text/Dictation Patient remains afebrile. Vital signs stable. Exam/Review of Systems Vital Signs Vitals Vital Signs Date Time Temp Pulse Resp B/P Pulse Ox O2 Delivery O2 Flow Rate FiO2 08/19/16 12:43 82 08/19/16 11:14 97.6 18 116/59 96 08/17/16 08:00 Nasal Cannula 4.0 Intake and Output 08/18/16 08/18/16 08/19/16 15:00 23:00 07:00 Intake Total 935 ml Balance 935 ml Exam GENERAL: This is a frail-looking elderly female lying in bed in no apparent distress. HEENT: Head normocephalic and atraumatic. Eyes: Anicteric sclerae. Conjunctivae clear. ENT: Nasal septum is midline. Oral mucosa is dry. NECK: Supple. No JVD noticed. RESPIRATORY: Bilaterally diminished breath sounds. No adventitious breath sounds. No use of accessory muscles of respiration. CARDIAC: Irregularly irregular rhythm. Systolic murmur. ABDOMEN: Soft, nontender and nondistended. Bowel sounds hypoactive in all 4 quadrants. GENITOURINARY: Deferred. EXTREMITIES: No cyanosis, no clubbing. Bilateral lower extremity 1 to 2+ pitting edema. Left upper extremity 2 to 3+ pitting edema. Left upper extremity tenderness upon palpation. Peripheral pulses are diminished. NEUROLOGIC: The patient is awake and alert and oriented x1 to 2. Results Result Diagram: 08/19/16 0615 08/19/16 0615 Results 24 hrs Laboratory Tests Test 08/18/16 16:20 08/18/16 18:23 08/18/16 22:03 08/19/16 05:54 Vancomycin Level Trough 18.7 Bedside Glucose 95 92 56 L Test 08/19/16 06:15 08/19/16 07:02 08/19/16 08:47 08/19/16 12:05 Anion Gap 12 Basophils # 0.0 Basophils % 0.3 Blood Morphology Comment Blood Urea Nitrogen 17 Calcium Level 7.0 L Carbon Dioxide Level 21 Chloride Level 107 Creatinine 0.57 Eosinophils # 0.1 Eosinophils % 1.1 Glucose Level 41 #*L Hematocrit 25.2 L Hemoglobin 8.4 L Lymphocytes # 1.7 Lymphocytes % 16.1 Magnesium Level 1.7 Mean Corpuscular Hemoglobin 28.7 L Mean Corpuscular Hemoglobin Concent 33.4 Mean Corpuscular Volume 85.8 Mean Platelet Volume 7.9 Monocytes # 0.3 Monocytes % 2.9 Neutrophils # 8.5 H Neutrophils % 79.6 H Nucleated Red Blood Cells # 0.0 Nucleated Red Blood Cells % 0.0 Phosphorus Level 3.8 Platelet Count 206 Potassium Level 3.6 Red Blood Count 2.94 L Red Cell Distribution Width 16.2 H Sodium Level 136 White Blood Count 10.7 Bedside Glucose 101 118 100 Medications Medications Current Medications Sodium Chloride (NS) 1,000 ml @ 75 mls/hr [id number] IV Last administered on 08/19 01:39; Admin Dose 75 MLS/HR; Start 08/13/16 at 15:31 Lorazepam (Ativan) 0.5 mg Q6H PRN IV ANXIETY; Start 08/13/16 at 16:00 Ondansetron HCl (Zofran Inj) 4 mg Q6H PRN IV NAUSEA AND/OR VOMITING; Start 08/13 at 16:00 Nitroglycerin (Nitroglycerin (Sl Tab) 0.4 Mg) 1 tab Q5M PRN SL CHEST PAIN; Start 08/13/16 at 16:00 Acetaminophen (Tylenol Supp) 650 mg Q6H PRN [place] PAIN LEVEL 1-3 OR FEVER; Start 08/13/16 at 16:00 Morphine Sulfate (morphine) 2 mg Q4H PRN IV PAIN LEVEL 7-10 Last administered on 08/16/16 15:42; Admin Dose 2 MG; Start 08/13/16 at 16:00 Bisacodyl (Dulcolax) 5 mg DAILY PRN PO CONSTIPATION; Start 08/13/16 at 16:00 Miscellaneous Information 1 ea NOTE XX ; Start 08/13/16 at 17:30 Glucose (Glutose) 15 gm Q15M PRN PO DECREASED GLUCOSE; Start 08/13/16 at 17:30 Glucose (Glutose) 22.5 gm Q15M PRN PO DECREASED GLUCOSE; Start 08/13/16 at 17:30 Dextrose (D50w Syringe) 25 ml Q15M PRN IV DECREASED GLUCOSE; Start 08/13/16 at 17:30 Dextrose (D50w Syringe) 50 ml Q15M PRN IV DECREASED GLUCOSE; Start 08/13/16 at 17:30 Glucagon (Glucagen) 1 mg Q15M PRN IM DECREASED GLUCOSE; Start 08/13/16 at 17:30 Glucose (Glutose) 15 gm Q15M PRN BUCCAL DECREASED GLUCOSE; Start 08/13/16 at 17: 30 Mupirocin (Bactroban) 1 applic BID TOP Last administered on 08/19/16 09:10; Admin Dose 1 APPLIC; Start 08/15/16 at 13:00 Atorvastatin Calcium (Lipitor) 10 mg QHS PO Last administered on 08/18/16 22: 00; Admin Dose 10 MG; Start 08/15/16 at 21:00 Metoprolol Tartrate (Lopressor) 50 mg BID PO Last administered on 08/19/16 09: 10; Admin Dose 50 MG; Start 08/15/16 at 15:00 Diagnostic Test (Pha) (Accucheck) 1 ea 02 XX ; Start 08/16/16 at 02:00 Methimazole (Tapazole) 20 mg DAILY PO Last administered on 08/19/16 09:11; Admin Dose 20 MG; Start 08/15/16 at 15:00 Insulin Glargine (Lantus) 22 unit HS SC Last administered on 08/18/16 22:03; Admin Dose 22 UNIT; Start 08/15/16 at 21:00 Linagliptin (Tradjenta) 5 mg DAILY PO Last administered on 08/19/16 09:10; Admin Dose 5 MG; Start 08/15/16 at 18:30 Rifampin 600 mg 600 mg DAILY PO Last administered on 08/19/16 09:11; Admin Dose 600 MG; Start 08/16/16 at 16:30 Ceftriaxone Sodium (Rocephin) 50 ml @ 100 mls/hr Q24H IVPB Last administered on 08/18/16 18:31; Admin Dose 100 MLS/HR; Start 08/16/16 at 15:30 IV Flush (NS 10 ml) 10 ml PRN PRN IV IV PROTOCOL; Start 08/16/16 at 15:30 Collagenase 1 applic 1 applic DAILY TOP Last administered on 08/19/16 09:10; Admin Dose 1 APPLIC; Start 08/17/16 at 09:00 Vancomycin HCl/ Sodium Chloride (Vancocin/NS) 250 ml @ 83.333 mls/ hr Q24H IVPB Last administered on 08/19/16 06:16; Admin Dose 83.333 MLS/HR; Start at 06:00 Pantoprazole (Protonix Tab) 40 mg DAILY@06 PO ; Start 08/20/16 at 06:00 DANN HAY NP Aug 19, 2016 15:23
--- NOTE | 2016-08-19 16:26 | CONS ---
Date/Time of Note Date/Time of Note DATE: 08/19/16 TIME: 16:25 Assessment/Plan Assessment/Plan Chief Complaint/Hosp Course Sepsis with positive blood cultures Atrial fibrillation Acute blood loss anemia Preserved ejection fraction Hyperthyroidism History of congestive heart failure History of hypertension History of CVA Diabetes GIB Problems: Additional Assessment/Plan rate with improved control no AC given GIB Consultation Date/Type/Reason Admit Date/Time Aug 14, 2016 at 01:54 Date of Consultation: Aug 19, 2016 Type of Consultation: cv Hx of Present Illness weak, no chest pain, no sob weak, no chest pain, no sob Constitutional: no complaints Respiratory: no complaints Cardiovascular: no complaints Gastrointestinal: no complaints Musculoskeletal: no complaints Skin: no complaints Psychological: nl mood/affect, no complaints Past Medical History Medical History: congestive heart failure, coronary artery disease, diabetes, high cholesterol, hypertension Social History Alcohol Use: none Smoking Status: Never smoker Drug Use: none Exam/Review of Systems Vital Signs Vitals Vital Signs Date Time Temp Pulse Resp B/P Pulse Ox O2 Delivery O2 Flow Rate FiO2 08/19/16 15:29 98.3 97 18 117/58 96 08/17/16 08:00 Nasal Cannula 4.0 Intake and Output 08/18/16 08/18/16 08/19/16 15:00 23:00 07:00 Intake Total 935 ml Balance 935 ml Exam Constitutional: frail Head: atraumatic, normocephalic Neck: supple Respiratory: clear to auscultation Cardiovascular: irregular rhythm Gastrointestinal: soft Musculoskeletal: nl extremities to inspection Results Result Diagram: 08/19/16 0615 08/19/16 0615 Results 24 hrs Laboratory Tests Test 08/18/16 18:23 08/18/16 22:03 08/19/16 05:54 08/19/16 06:15 Bedside Glucose 95 92 56 L Anion Gap 12 Basophils # 0.0 Basophils % 0.3 Blood Morphology Comment Blood Urea Nitrogen 17 Calcium Level 7.0 L Carbon Dioxide Level 21 Chloride Level 107 Creatinine 0.57 Eosinophils # 0.1 Eosinophils % 1.1 Glucose Level 41 #*L Hematocrit 25.2 L Hemoglobin 8.4 L Lymphocytes # 1.7 Lymphocytes % 16.1 Magnesium Level 1.7 Mean Corpuscular Hemoglobin 28.7 L Mean Corpuscular Hemoglobin Concent 33.4 Mean Corpuscular Volume 85.8 Mean Platelet Volume 7.9 Monocytes # 0.3 Monocytes % 2.9 Neutrophils # 8.5 H Neutrophils % 79.6 H Nucleated Red Blood Cells # 0.0 Nucleated Red Blood Cells % 0.0 Phosphorus Level 3.8 Platelet Count 206 Potassium Level 3.6 Red Blood Count 2.94 L Red Cell Distribution Width 16.2 H Sodium Level 136 White Blood Count 10.7 Test 08/19/16 07:02 08/19/16 08:47 08/19/16 12:05 Bedside Glucose 101 118 100 Medications Medications Current Medications Sodium Chloride (NS) 1,000 ml @ 75 mls/hr [id number] IV Last administered on 08/19 01:39; Admin Dose 75 MLS/HR; Start 08/13/16 at 15:31 Lorazepam (Ativan) 0.5 mg Q6H PRN IV ANXIETY; Start 08/13/16 at 16:00 Ondansetron HCl (Zofran Inj) 4 mg Q6H PRN IV NAUSEA AND/OR VOMITING; Start 08/13 at 16:00 Nitroglycerin (Nitroglycerin (Sl Tab) 0.4 Mg) 1 tab Q5M PRN SL CHEST PAIN; Start 08/13/16 at 16:00 Acetaminophen (Tylenol Supp) 650 mg Q6H PRN [place] PAIN LEVEL 1-3 OR FEVER; Start 08/13/16 at 16:00 Morphine Sulfate (morphine) 2 mg Q4H PRN IV PAIN LEVEL 7-10 Last administered on 08/16/16 15:42; Admin Dose 2 MG; Start 08/13/16 at 16:00 Bisacodyl (Dulcolax) 5 mg DAILY PRN PO CONSTIPATION; Start 08/13/16 at 16:00 Miscellaneous Information 1 ea NOTE XX ; Start 08/13/16 at 17:30 Glucose (Glutose) 15 gm Q15M PRN PO DECREASED GLUCOSE; Start 08/13/16 at 17:30 Glucose (Glutose) 22.5 gm Q15M PRN PO DECREASED GLUCOSE; Start 08/13/16 at 17:30 Dextrose (D50w Syringe) 25 ml Q15M PRN IV DECREASED GLUCOSE; Start 08/13/16 at 17:30 Dextrose (D50w Syringe) 50 ml Q15M PRN IV DECREASED GLUCOSE; Start 08/13/16 at 17:30 Glucagon (Glucagen) 1 mg Q15M PRN IM DECREASED GLUCOSE; Start 08/13/16 at 17:30 Glucose (Glutose) 15 gm Q15M PRN BUCCAL DECREASED GLUCOSE; Start 08/13/16 at 17: 30 Mupirocin (Bactroban) 1 applic BID TOP Last administered on 08/19/16 09:10; Admin Dose 1 APPLIC; Start 08/15/16 at 13:00 Atorvastatin Calcium (Lipitor) 10 mg QHS PO Last administered on 08/18/16 22: 00; Admin Dose 10 MG; Start 08/15/16 at 21:00 Metoprolol Tartrate (Lopressor) 50 mg BID PO Last administered on 08/19/16 09: 10; Admin Dose 50 MG; Start 08/15/16 at 15:00 Diagnostic Test (Pha) (Accucheck) 1 ea 02 XX ; Start 08/16/16 at 02:00 Methimazole (Tapazole) 20 mg DAILY PO Last administered on 08/19/16 09:11; Admin Dose 20 MG; Start 08/15/16 at 15:00 Insulin Glargine (Lantus) 22 unit HS SC Last administered on 08/18/16 22:03; Admin Dose 22 UNIT; Start 08/15/16 at 21:00 Linagliptin (Tradjenta) 5 mg DAILY PO Last administered on 08/19/16 09:10; Admin Dose 5 MG; Start 08/15/16 at 18:30 Rifampin 600 mg 600 mg DAILY PO Last administered on 08/19/16 09:11; Admin Dose 600 MG; Start 08/16/16 at 16:30 Ceftriaxone Sodium (Rocephin) 50 ml @ 100 mls/hr Q24H IVPB Last administered on 08/18/16 18:31; Admin Dose 100 MLS/HR; Start 08/16/16 at 15:30 IV Flush (NS 10 ml) 10 ml PRN PRN IV IV PROTOCOL; Start 08/16/16 at 15:30 Collagenase 1 applic 1 applic DAILY TOP Last administered on 08/19/16 09:10; Admin Dose 1 APPLIC; Start 08/17/16 at 09:00 Vancomycin HCl/ Sodium Chloride (Vancocin/NS) 250 ml @ 83.333 mls/ hr Q24H IVPB Last administered on 1/14/17at 06:16; Admin Dose 83.333 MLS/HR; Start at 06:00 Pantoprazole (Protonix Tab) 40 mg DAILY@06 PO ; Start 08/20/16 at 06:00 LENORA ARRIAZA MD Aug 19, 2016 16:26
[2016-08-19] MEDS: CEFTRIAXONE 1 GM/50 ML (PMX) 50 ML IVPB SCH (16:52)
--- NOTE | 2016-08-19 17:24 | CONS ---
Date/Time of Note Date/Time of Note DATE: 08/19/16 TIME: 17:20 Assessment/Plan Assessment/Plan Problems: (1) Hyperthyroidism Status: Chronic Comment: Patient with thyrotoxicosis on antithyroid medication. Atrial fibrillation managed by cardiolog with heart rate fluctuating between controlled and rapid response. (2) Diabetes mellitus type 2 in obese Status: Chronic Comment: decent glycemic control. Consultation Date/Type/Reason Admit Date/Time Aug 14, 2016 at 01:54 Initial Consult Date 08/19/16 Type of Consultation: endocrine Referring Provider: SÁNCHEZ WOMACK MD 24 HR Interval Summary Free Text/Dictation Patient asleep. Exam/Review of Systems Vital Signs Vitals Vital Signs Date Time Temp Pulse Resp B/P Pulse Ox O2 Delivery O2 Flow Rate FiO2 08/19/16 15:29 98.3 97 18 117/58 96 08/17/16 08:00 Nasal Cannula 4.0 Intake and Output 08/18/16 08/18/16 08/19/16 15:00 23:00 07:00 Intake Total 935 ml Balance 935 ml Exam Exam deferred as patient asleep Cardiovascular: irregular rhythm (on poultryman.) Results Result Diagram: 08/19/16 0615 08/19/16 0615 Results 24 hrs Laboratory Tests Test 08/18/16 18:23 08/18/16 22:03 08/19/16 05:54 08/19/16 06:15 Bedside Glucose 95 92 56 L Anion Gap 12 Basophils # 0.0 Basophils % 0.3 Blood Morphology Comment Blood Urea Nitrogen 17 Calcium Level 7.0 L Carbon Dioxide Level 21 Chloride Level 107 Creatinine 0.57 Eosinophils # 0.1 Eosinophils % 1.1 Glucose Level 41 #*L Hematocrit 25.2 L Hemoglobin 8.4 L Lymphocytes # 1.7 Lymphocytes % 16.1 Magnesium Level 1.7 Mean Corpuscular Hemoglobin 28.7 L Mean Corpuscular Hemoglobin Concent 33.4 Mean Corpuscular Volume 85.8 Mean Platelet Volume 7.9 Monocytes # 0.3 Monocytes % 2.9 Neutrophils # 8.5 H Neutrophils % 79.6 H Nucleated Red Blood Cells # 0.0 Nucleated Red Blood Cells % 0.0 Phosphorus Level 3.8 Platelet Count 206 Potassium Level 3.6 Red Blood Count 2.94 L Red Cell Distribution Width 16.2 H Sodium Level 136 White Blood Count 10.7 Test 08/19/16 07:02 08/19/16 08:47 08/19/16 12:05 Bedside Glucose 101 118 100 Medications Medications Current Medications Sodium Chloride (NS) 1,000 ml @ 75 mls/hr [id number] IV Last administered on 08/19 01:39; Admin Dose 75 MLS/HR; Start 08/13/16 at 15:31 Lorazepam (Ativan) 0.5 mg Q6H PRN IV ANXIETY; Start 08/13/16 at 16:00 Ondansetron HCl (Zofran Inj) 4 mg Q6H PRN IV NAUSEA AND/OR VOMITING; Start 08/13 at 16:00 Nitroglycerin (Nitroglycerin (Sl Tab) 0.4 Mg) 1 tab Q5M PRN SL CHEST PAIN; Start 08/13/16 at 16:00 Acetaminophen (Tylenol Supp) 650 mg Q6H PRN [place] PAIN LEVEL 1-3 OR FEVER; Start 08/13/16 at 16:00 Morphine Sulfate (morphine) 2 mg Q4H PRN IV PAIN LEVEL 7-10 Last administered on 08/16/16 15:42; Admin Dose 2 MG; Start 08/13/16 at 16:00 Bisacodyl (Dulcolax) 5 mg DAILY PRN PO CONSTIPATION; Start 08/13/16 at 16:00 Miscellaneous Information 1 ea NOTE XX ; Start 08/13/16 at 17:30 Glucose (Glutose) 15 gm Q15M PRN PO DECREASED GLUCOSE; Start 08/13/16 at 17:30 Glucose (Glutose) 22.5 gm Q15M PRN PO DECREASED GLUCOSE; Start 08/13/16 at 17:30 Dextrose (D50w Syringe) 25 ml Q15M PRN IV DECREASED GLUCOSE; Start 08/13/16 at 17:30 Dextrose (D50w Syringe) 50 ml Q15M PRN IV DECREASED GLUCOSE; Start 08/13/16 at 17:30 Glucagon (Glucagen) 1 mg Q15M PRN IM DECREASED GLUCOSE; Start 08/13/16 at 17:30 Glucose (Glutose) 15 gm Q15M PRN BUCCAL DECREASED GLUCOSE; Start 08/13/16 at 17: 30 Mupirocin (Bactroban) 1 applic BID TOP Last administered on 08/19/16 09:10; Admin Dose 1 APPLIC; Start 08/15/16 at 13:00 Atorvastatin Calcium (Lipitor) 10 mg QHS PO Last administered on 08/18/16 22: 00; Admin Dose 10 MG; Start 08/15/16 at 21:00 Metoprolol Tartrate (Lopressor) 50 mg BID PO Last administered on 08/19/16 09: 10; Admin Dose 50 MG; Start 08/15/16 at 15:00 Diagnostic Test (Pha) (Accucheck) 1 ea 02 XX ; Start 08/16/16 at 02:00 Methimazole (Tapazole) 20 mg DAILY PO Last administered on 08/19/16 09:11; Admin Dose 20 MG; Start 08/15/16 at 15:00 Insulin Glargine (Lantus) 22 unit HS SC Last administered on 08/18/16 22:03; Admin Dose 22 UNIT; Start 08/15/16 at 21:00 Linagliptin (Tradjenta) 5 mg DAILY PO Last administered on 08/19/16 09:10; Admin Dose 5 MG; Start 08/15/16 at 18:30 Rifampin 600 mg 600 mg DAILY PO Last administered on 08/19/16 09:11; Admin Dose 600 MG; Start 08/16/16 at 16:30 Ceftriaxone Sodium (Rocephin) 50 ml @ 100 mls/hr Q24H IVPB Last administered on 08/19/16 16:52; Admin Dose 100 MLS/HR; Start 08/16/16 at 15:30 IV Flush (NS 10 ml) 10 ml PRN PRN IV IV PROTOCOL; Start 08/16/16 at 15:30 Collagenase 1 applic 1 applic DAILY TOP Last administered on 08/19/16 09:10; Admin Dose 1 APPLIC; Start 08/17/16 at 09:00 Vancomycin HCl/ Sodium Chloride (Vancocin/NS) 250 ml @ 83.333 mls/ hr Q24H IVPB Last administered on 08/19/16 06:16; Admin Dose 83.333 MLS/HR; Start at 06:00 Pantoprazole (Protonix Tab) 40 mg DAILY@06 PO ; Start 08/20/16 at 06:00 SETH CEJA MD Aug 19, 2016 17:24
[2016-08-19] MEDS: ATORVASTATIN 10 MG TAB PO SCH (21:29)
[2016-08-19] MEDS: INSULIN GLARGINE [LANtus] 3 ML PEN SC SCH (21:43)
[2016-08-20] VITALS (13 sets, daily range): BP systolic 119–138; BP diastolic 62–82; PULSE 75–188; RESP 16–19
[2016-08-20] MEDS: ACCUCHECK XX SCH (02:00)
[2016-08-20] MEDS: VANCOMYCIN 1.25 GM in SOD CHLORIDE 0.9% 250 ML IVPB SCH (05:09)
[2016-08-20] MEDS: PANTOPRAZOLE (EC) 40 MG TAB PO SCH (05:10)
[2016-08-20] MEDS: SOD CHLORIDE 0.9% 1,000 ML IV SCH ×3 (06:00→21:59)
[2016-08-20 06:13] LABS: BASOPHILS % 0.4 % (0.0-2.0); EOSINOPHILS # 0.2 10^3/ul (0.0-0.5); EOSINOPHILS % 1.9 % (0.0-7.0); HEMATOCRIT 27.4 % (37.0-47.0); LYMPHOCYTES # 2.3 10^3/ul (0.8-2.9); LYMPHOCYTES % 19.9 % (15.0-51.0); MEAN CORPUSCULAR HEMOGLOBIN 28.4 pg (29.0-33.0); MEAN CORPUSCULAR HGB CONC 32.8 g/dl (32.0-37.0); MEAN CORPUSCULAR VOLUME 86.7 fl (82.0-101.0); MEAN PLATELET VOLUME 7.8 fl (7.4-10.4); MONOCYTE # 0.3 10^3/ul (0.3-0.9); MONOCYTES % 2.9 % (0.0-11.0); NEUTROPHIL # 8.6 10^3/ul (1.6-7.5); NEUTROPHILS % 74.9 % (39.0-77.0); PLATELET COUNT 189 10^3/UL (140-440); RED BLOOD COUNT 3.17 10^6/ul (4.20-5.40); RED CELL DISTRIBUTION WIDTH 15.6 % (11.5-14.5); UNCORRECTED WBC 11.4 10^3/ul (4.8-10.8); WHITE BLOOD COUNT 11.4 10^3/ul (4.8-10.8)
[2016-08-20 06:27] LABS: CALCIUM 7.1 mg/dl (8.4-10.2); CREATININE 0.6 mg/dl (0.44-1.00)
[2016-08-20 06:28] LABS: MAGNESIUM 1.5 mg/dl (1.7-2.5); PHOSPHORUS 3.2 mg/dl (2.5-4.9)
[2016-08-20 06:57] LABS: CONDITION 1; LH ANALYZER COMMENTS 1
[2016-08-20] MEDS ORDERED: MAGNESIUM SULFATE 3 GM in SOD CHLORIDE 0.9% 100 ML IVPB ONE (07:30)
[2016-08-20] MEDS: INSULIN ASPART [NOVOLOG] 3 ML PEN SC SCH ×3 (08:28→17:59)
--- NOTE | 2016-08-20 10:12 | PN ---
Date/Time of Note Date/Time of Note DATE: 08/20/16 TIME: 10:10 Assessment/Plan VTE Prophylaxis VTE Prophylaxis Intervention: SCD's Lines/Catheters IV Catheter Type (from [facility]): PICC Line Central line still needed: Yes Urinary Cath still in place: Yes Reason Cath still needed: skin wounds contaminated by urine Assessment/Plan Chief Complaint/Hosp Course 1. Upper gastrointestinal bleeding. The patient was evaluated by gastroenterology. Esophagogastroduodenoscopy revealed a Faye-Johnson tear, chronic gastritis, and nodular duodenitis. Continue proton pump inhibitors. 2. Atrial fibrillation with rapid ventricular response. Currently, the rate is controlled. No anticoagulation because of underlying gastrointestinal bleed. Cardiology following. 3. Sepsis with underlying MRSA bacteremia, infected pressure ulcers, and urinary tract infection. Continue antibiotics. Infectious disease is on the case. 4. Infected right heel pressure ulcer. Seen and evaluated by podiatry. Pending local debridement. 5. Essential hypertension. Continue antihypertensives. 6. Peripheral vascular disease. Monitor for acute changes. Anticoagulation on hold because of current gastrointestinal bleed. 7. Dyslipidemia. Continue statins. Fasting lipid panel showing low HDL and low total cholesterol. 8. Type 2 diabetes mellitus. Hemoglobin A1c 9.8. Continue sliding scale insulin. 9. Left upper extremity edema. Left upper extremity venous Doppler study negative for any deep venous thrombosis. Continue elevation of left upper extremity. 10. Multiple pressure ulcers. Continue local wound care. Wound care consult. 11. Hyperthyroidism. The patient was started on methimazole. 12. MRSA colonization of the nares. Continue Bactroban. 13. Fluid, electrolytes and nutrition. Carbohydrate controlled, low- cholesterol diet. 14. DVT prophylaxis with serial sequential compression devices. No anticoagulation because of underlying GI bleed. 15. Gastrointestinal prophylaxis with proton pump inhibitors. PLAN: Continue antibiotics as per infectious diseases. Continue in-house monitoring. Replete magnesium. Case discussed with Dr. Ying. Problems: Subjective 24 Hr Interval Summary Free Text/Dictation The patient remains afebrile. Vital signs stable. Exam/Review of Systems Vital Signs Vitals Vital Signs Date Time Temp Pulse Resp B/P Pulse Ox O2 Delivery O2 Flow Rate FiO2 08/20/16 08:45 120 08/20/16 07:43 98.1 18 121/63 96 08/17/16 08:00 Nasal Cannula 4.0 Intake and Output 108/19/16 08/20/16 15:00 23:00 07:00 Intake Total 1400 ml Output Total 600 ml Balance 800 ml Exam GENERAL: This is a frail-looking elderly female lying in bed in no apparent distress. HEENT: Head normocephalic and atraumatic. Eyes: Anicteric sclerae. Conjunctivae clear. ENT: Nasal septum is midline. Oral mucosa is dry. NECK: Supple. No JVD noticed. RESPIRATORY: Bilaterally diminished breath sounds. No adventitious breath sounds. No use of accessory muscles of respiration. CARDIAC: Irregularly irregular rhythm. Systolic murmur. ABDOMEN: Soft, nontender and nondistended. Bowel sounds hypoactive in all 4 quadrants. GENITOURINARY: Deferred. EXTREMITIES: No cyanosis, no clubbing. Bilateral lower extremity 1 to 2+ pitting edema. Left upper extremity 2 to 3+ pitting edema. Left upper extremity tenderness upon palpation. Peripheral pulses are diminished. NEUROLOGIC: The patient is awake and alert and oriented x1 to 2. Results Result Diagram: 08/20/16 0552 08/20/16 0552 Results 24 hrs Laboratory Tests Test 08/19/16 12:05 08/19/16 18:26 08/19/16 21:32 08/20/16 01:57 Bedside Glucose 100 207 185 125 Test 08/20/16 05:52 08/20/16 08:09 Anion Gap 12 Basophils # 0.0 Basophils % 0.4 Blood Morphology Comment Blood Urea Nitrogen 14 Calcium Level 7.1 L Carbon Dioxide Level 21 Chloride Level 106 Creatinine 0.60 Eosinophils # 0.2 Eosinophils % 1.9 Glucose Level 91 # Hematocrit 27.4 L Hemoglobin 9.0 L Lymphocytes # 2.3 Lymphocytes % 19.9 Magnesium Level 1.5 L Mean Corpuscular Hemoglobin 28.4 L Mean Corpuscular Hemoglobin Concent 32.8 Mean Corpuscular Volume 86.7 Mean Platelet Volume 7.8 Monocytes # 0.3 Monocytes % 2.9 Neutrophils # 8.6 H Neutrophils % 74.9 Nucleated Red Blood Cells # 0.0 Nucleated Red Blood Cells % 0.0 Phosphorus Level 3.2 Platelet Count 189 Potassium Level 4.0 Red Blood Count 3.17 L Red Cell Distribution Width 15.6 H Sodium Level 135 White Blood Count 11.4 H Bedside Glucose 93 Medications Medications Current Medications Sodium Chloride (NS) 1,000 ml @ 75 mls/hr [id number] IV Last administered on 08/20 06:00; Admin Dose 75 MLS/HR; Start 08/13/16 at 15:31 Lorazepam (Ativan) 0.5 mg Q6H PRN IV ANXIETY; Start 08/13/16 at 16:00 Ondansetron HCl (Zofran Inj) 4 mg Q6H PRN IV NAUSEA AND/OR VOMITING; Start 08/13 at 16:00 Nitroglycerin (Nitroglycerin (Sl Tab) 0.4 Mg) 1 tab Q5M PRN SL CHEST PAIN; Start 08/13/16 at 16:00 Acetaminophen (Tylenol Supp) 650 mg Q6H PRN [place] PAIN LEVEL 1-3 OR FEVER; Start 08/13/16 at 16:00 Morphine Sulfate (morphine) 2 mg Q4H PRN IV PAIN LEVEL 7-10 Last administered on 08/16/16 15:42; Admin Dose 2 MG; Start 08/13/16 at 16:00 Bisacodyl (Dulcolax) 5 mg DAILY PRN PO CONSTIPATION; Start 08/13/16 at 16:00 Miscellaneous Information 1 ea NOTE XX ; Start 08/13/16 at 17:30 Glucose (Glutose) 15 gm Q15M PRN PO DECREASED GLUCOSE; Start 08/13/16 at 17:30 Glucose (Glutose) 22.5 gm Q15M PRN PO DECREASED GLUCOSE; Start 08/13/16 at 17:30 Dextrose (D50w Syringe) 25 ml Q15M PRN IV DECREASED GLUCOSE; Start 08/13/16 at 17:30 Dextrose (D50w Syringe) 50 ml Q15M PRN IV DECREASED GLUCOSE; Start 08/13/16 at 17:30 Glucagon (Glucagen) 1 mg Q15M PRN IM DECREASED GLUCOSE; Start 08/13/16 at 17:30 Glucose (Glutose) 15 gm Q15M PRN BUCCAL DECREASED GLUCOSE; Start 08/13/16 at 17: 30 Mupirocin (Bactroban) 1 applic BID TOP Last administered on 08/19/16 21:31; Admin Dose 1 APPLIC; Start 08/15/16 at 13:00 Atorvastatin Calcium (Lipitor) 10 mg QHS PO Last administered on 08/19/16 21: 29; Admin Dose 10 MG; Start 08/15/16 at 21:00 Metoprolol Tartrate (Lopressor) 50 mg BID PO Last administered on 08/19/16 21: 29; Admin Dose 50 MG; Start 08/15/16 at 15:00 Diagnostic Test (Pha) (Accucheck) 1 ea 02 XX Last administered on 08/20/16 02: 00; Admin Dose 1 EA; Start 08/16/16 at 02:00 Methimazole (Tapazole) 20 mg DAILY PO Last administered on 08/19/16 09:11; Admin Dose 20 MG; Start 08/15/16 at 15:00 Insulin Glargine (Lantus) 22 unit HS SC Last administered on 08/19/16 21:43; Admin Dose 22 UNIT; Start 08/15/16 at 21:00 Linagliptin (Tradjenta) 5 mg DAILY PO Last administered on 08/19/16 09:10; Admin Dose 5 MG; Start 08/15/16 at 18:30 Rifampin 600 mg 600 mg DAILY PO Last administered on 08/19/16 09:11; Admin Dose 600 MG; Start 08/16/16 at 16:30 Ceftriaxone Sodium (Rocephin) 50 ml @ 100 mls/hr Q24H IVPB Last administered on 08/19/16 16:52; Admin Dose 100 MLS/HR; Start 08/16/16 at 15:30 IV Flush (NS 10 ml) 10 ml PRN PRN IV IV PROTOCOL; Start 08/16/16 at 15:30 Collagenase 1 applic 1 applic DAILY TOP Last administered on 08/19/16 09:10; Admin Dose 1 APPLIC; Start 08/17/16 at 09:00 Vancomycin HCl/ Sodium Chloride (Vancocin/NS) 250 ml @ 83.333 mls/ hr Q24H IVPB Last administered on 08/20/16 05:09; Admin Dose 83.333 MLS/HR; Start at 06:00 Pantoprazole 40 mg 40 mg DAILY@06 PO Last administered on 08/20/16 05:10; Admin Dose 40 MG; Start 08/20/16 at 06:00 Magnesium Sulfate/ Sodium Chloride (Magnesium Sulfate/NS) 106 ml @ 35.333 mls/ hr ONCE ONCE IVPB ; Start 08/20/16 at 07:30; Stop 08/20/16 at 10:29 DANN HAY NP Aug 20, 2016 10:12
[2016-08-20] MEDS: RIFAMPIN 300 MG CAP PO SCH (10:28)
[2016-08-20] MEDS: METOPROLOL 50 MG TAB PO SCH ×2 (10:28→21:59)
[2016-08-20] MEDS: LINAGLIPTIN 5 MG TABLET PO SCH (10:29)
[2016-08-20] MEDS: MUPIROCIN 2% 22 GM OINT TOP SCH ×2 (10:29→22:00)
[2016-08-20] MEDS: COLLAGENASE 30 GM TUBE TOP SCH (10:30)
--- NOTE | 2016-08-20 10:42 | CONS ---
Date/Time of Note Date/Time of Note DATE: 08/20/16 TIME: 10:40 Assessment/Plan Assessment/Plan Problems: (1) Hyperthyroidism Status: Chronic Comment: On antithyroid medication methimazole 20mg daily. Recheck thyroid function test in a few weeks. Consultation Date/Type/Reason Admit Date/Time Aug 14, 2016 at 01:54 Initial Consult Date 08/19/16 Type of Consultation: endocrine Referring Provider: SÁNCHEZ WOMACK MD 24 HR Interval Summary Free Text/Dictation No issues Exam/Review of Systems Vital Signs Vitals Vital Signs Date Time Temp Pulse Resp B/P Pulse Ox O2 Delivery O2 Flow Rate FiO2 08/20/16 08:45 120 08/20/16 07:43 98.1 18 121/63 96 08/17/16 08:00 Nasal Cannula 4.0 Intake and Output 08/19/16 08/19/16 08/20/16 15:00 23:00 07:00 Intake Total 1400 ml Output Total 600 ml Balance 800 ml Exam Neck: supple Respiratory: clear to auscultation Cardiovascular: irregular rhythm Gastrointestinal: soft Musculoskeletal: swelling (upper extremities (dependant edema)) Results Result Diagram: 08/20/16 0552 08/20/16 0552 Results 24 hrs Laboratory Tests Test 08/19/16 12:05 08/19/16 18:26 08/19/16 21:32 08/20/16 01:57 Bedside Glucose 100 207 185 125 Test 08/20/16 05:52 08/20/16 08:09 Anion Gap 12 Basophils # 0.0 Basophils % 0.4 Blood Morphology Comment Blood Urea Nitrogen 14 Calcium Level 7.1 L Carbon Dioxide Level 21 Chloride Level 106 Creatinine 0.60 Eosinophils # 0.2 Eosinophils % 1.9 Glucose Level 91 # Hematocrit 27.4 L Hemoglobin 9.0 L Lymphocytes # 2.3 Lymphocytes % 19.9 Magnesium Level 1.5 L Mean Corpuscular Hemoglobin 28.4 L Mean Corpuscular Hemoglobin Concent 32.8 Mean Corpuscular Volume 86.7 Mean Platelet Volume 7.8 Monocytes # 0.3 Monocytes % 2.9 Neutrophils # 8.6 H Neutrophils % 74.9 Nucleated Red Blood Cells # 0.0 Nucleated Red Blood Cells % 0.0 Phosphorus Level 3.2 Platelet Count 189 Potassium Level 4.0 Red Blood Count 3.17 L Red Cell Distribution Width 15.6 H Sodium Level 135 White Blood Count 11.4 H Bedside Glucose 93 Medications Medications Current Medications Sodium Chloride (NS) 1,000 ml @ 75 mls/hr [id number] IV Last administered on 08/20 06:00; Admin Dose 75 MLS/HR; Start 08/13/16 at 15:31 Lorazepam (Ativan) 0.5 mg Q6H PRN IV ANXIETY; Start 08/13/16 at 16:00 Ondansetron HCl (Zofran Inj) 4 mg Q6H PRN IV NAUSEA AND/OR VOMITING; Start 08/13 at 16:00 Nitroglycerin (Nitroglycerin (Sl Tab) 0.4 Mg) 1 tab Q5M PRN SL CHEST PAIN; Start 08/13/16 at 16:00 Acetaminophen (Tylenol Supp) 650 mg Q6H PRN [place] PAIN LEVEL 1-3 OR FEVER; Start 08/13/16 at 16:00 Morphine Sulfate (morphine) 2 mg Q4H PRN [place] PAIN LEVEL 7-10 Last administered on 08/16/16 15:42; Admin Dose 2 MG; Start 08/13/16 at 16:00 Bisacodyl (Dulcolax) 5 mg DAILY PRN PO CONSTIPATION; Start 08/13/16 at 16:00 Miscellaneous Information 1 ea NOTE XX ; Start 08/13/16 at 17:30 Glucose (Glutose) 15 gm Q15M PRN PO DECREASED GLUCOSE; Start 08/13/16 at 17:30 Glucose (Glutose) 22.5 gm Q15M PRN PO DECREASED GLUCOSE; Start 08/13/16 at 17:30 Dextrose (D50w Syringe) 25 ml Q15M PRN IV DECREASED GLUCOSE; Start 08/13/16 at 17:30 Dextrose (D50w Syringe) 50 ml Q15M PRN IV DECREASED GLUCOSE; Start 08/13/16 at 17:30 Glucagon (Glucagen) 1 mg Q15M PRN IM DECREASED GLUCOSE; Start 08/13/16 at 17:30 Glucose (Glutose) 15 gm Q15M PRN BUCCAL DECREASED GLUCOSE; Start 08/13/16 at 17: 30 Mupirocin (Bactroban) 1 applic BID TOP Last administered on 08/19/16 21:31; Admin Dose 1 APPLIC; Start 08/15/16 at 13:00 Atorvastatin Calcium (Lipitor) 10 mg QHS PO Last administered on 08/19/16 21: 29; Admin Dose 10 MG; Start 08/15/16 at 21:00 Metoprolol Tartrate (Lopressor) 50 mg BID PO Last administered on 08/19/16 21: 29; Admin Dose 50 MG; Start 08/15/16 at 15:00 Diagnostic Test (Pha) (Accucheck) 1 ea 02 XX Last administered on 08/20/16 02: 00; Admin Dose 1 EA; Start 08/16/16 at 02:00 Methimazole (Tapazole) 20 mg DAILY PO Last administered on 08/19/16 09:11; Admin Dose 20 MG; Start 08/15/16 at 15:00 Insulin Glargine (Lantus) 22 unit HS SC Last administered on 08/19/16 21:43; Admin Dose 22 UNIT; Start 08/15/16 at 21:00 Linagliptin (Tradjenta) 5 mg DAILY PO Last administered on 08/19/16 09:10; Admin Dose 5 MG; Start 08/15/16 at 18:30 Rifampin 600 mg 600 mg DAILY PO Last administered on 08/19/16 09:11; Admin Dose 600 MG; Start 08/16/16 at 16:30 Ceftriaxone Sodium (Rocephin) 50 ml @ 100 mls/hr Q24H IVPB Last administered on 08/19/16 16:52; Admin Dose 100 MLS/HR; Start 08/16/16 at 15:30 IV Flush (NS 10 ml) 10 ml PRN PRN IV IV PROTOCOL; Start 08/16/16 at 15:30 Collagenase 1 applic 1 applic DAILY TOP Last administered on 08/19/16 09:10; Admin Dose 1 APPLIC; Start 08/17/16 at 09:00 Vancomycin HCl/ Sodium Chloride (Vancocin/NS) 250 ml @ 83.333 mls/ hr Q24H IVPB Last administered on 08/20/16 05:09; Admin Dose 83.333 MLS/HR; Start at 06:00 Pantoprazole (Protonix Tab) 40 mg DAILY@06 PO Last administered on 08/20/16 05 :10; Admin Dose 40 MG; Start 08/20/16 at 06:00 SETH CEJA MD Aug 20, 2016 10:42
[2016-08-20] MEDS: METHIMAZOLE 5 MG TAB PO SCH (11:09)
[2016-08-20] MEDS: morphine 2 MG INJ IV PRN (13:06)
--- NOTE | 2016-08-20 15:14 | CONS ---
Date/Time of Note Date/Time of Note DATE: 08/20/16 TIME: 15:09 Assessment/Plan Assessment/Plan Chief Complaint/Hosp Course ID PROGRESS NOTE TOTAL ABX DAY # => Vanco IV, Ceftriaxone, Rifampin 24H INTERVAL SUMMARY * Awake, alert, follows commands, left sided hemiplegia - tells me she feels good * No fevers, renal fx stable, WBC slightly up - stable * HEEL WOUND FINAL STILL PENDING [place]er: 08/15/16 Rcvd: 08/15/16 Source: HEEL Sp Descrip: RIGHT Microbiology GRAM STAIN Final EPITHELIAL CELLS 1+ GRAM POS COCCI IN PAIRS 1+ WOUND CULTURE Preliminary Organism 1 METHICILLIN RESISTANT S.AUREUS QUANTITY 2+ . MULTI DRUG RESISTANT ORGANISM Organism 2 PROTEUS MIRABILIS QUANTITY SCANT GROWTH Organism 3 GRAM NEGATIVE MARIELA QUANTITY RARE PREVIOUSLY REPORTED MRSA MRSA P. MIRAB M.I.C. RX M.I.C. RX --------- --- --------- --- AMPICILLIN <=2 S CEFAZOLIN R CEFOTAXIME S CIPROFLOXACIN 4 R 1 S CLINDAMYCIN >=8 R DOXYCYCLINE S ERYTHROMYCIN >=8 R GENTAMICIN <=1 S LEVOFLOXACIN 4 R 1 S OXACILLIN >=4 R PENICILLIN-G >=0.5 R RIFAMPIN <=0.5 S VANCOMYCIN 1 S TOBRAMYCIN <=1 S TRIMETHOPRIM/SULFAMETHOXAZOLE <=10 S <=20 S PHYSICAL EXAMINATION: GENERAL: 81 yo F HEENT: Unremarkable = eyes remain closed NECK: Supple, trachea midline. CHEST: Rise symmetrical without dyspnea HEART: RRR ABDOMEN: Soft EXTREMITIES: Warm -> BUEXT w/edema L>R, BLEXT DSG C/D/I ID ASSESSMENT: 81 yo F w.PMHx CVA w/left sided hemiparesis admit with: 1. Sepsis w/ Methicillin-resistant Staphylococcus aureus bacteremia. * Repeat BCx(-) * Leukocytosis = resolving * No fevers 2. Polymicrobial urinary tract infection with urine culture growing MRSA and E. coli. 3. Probable neurogenic bladder 4. Non-healing BLEXT Bilateral heel cellulitis with open wounds, right more than left with right foot wound culture growing MRSA/Proteus Miribilis/ GNR #2 pending * X-RAY: Right foot reveals a calcaneal deformity, likely from deformity or trauma. Osteopenia, without evidence of osteomyelitis. * X-RAY: Left foot without fracture or dislocation. Osteopenia, without focal blastic or lytic lesion. 5. Peripheral vascular disease 6. HTN, HLD, Atherosclerosis 7. 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 Atrial fibrillation w/hx of RVR 9. Anemia, status post hematemesis and EGD that revealed Faye-Johnson tear and chronic gastritis. 10. GERD 11. Hyperthyroidism 12. LUEXT Edema (+)MRSA Nares ABX ALLERGY: PCN, SULFA INVASIVES: *PIV CURRENT ABX: # => Vanco IV, Ceftriaxone, Rifampin ID RECOMMENDATIONS: * CONTINUE Current ABX & wound care * f/u on heel culture final micro -> GNR #2 still pending * Anticipate at least 14 days Vanco IV for MRSA bacteremia, possible more * Further recs APC . . Problems: Consultation Date/Type/Reason Admit Date/Time Aug 14, 2016 at 01:54 Initial Consult Date 08/15/16 Type of Consultation: ID Referring Provider: SÁNCHEZ WOMACK MD Exam/Review of Systems Vital Signs Vitals Vital Signs Date Time Temp Pulse Resp B/P Pulse Ox O2 Delivery O2 Flow Rate FiO2 08/20/16 12:24 99 08/20/16 11:17 98.0 19 137/64 95 08/17/16 08:00 Nasal Cannula 4.0 Intake and Output 08/19/16 08/19/16 08/20/16 14:59 22:59 06:59 Intake Total 1400 ml Output Total 600 ml Balance 800 ml Results Result Diagram: 08/20/16 0552 08/20/16 0552 Results 24 hrs Laboratory Tests Test 08/19/16 18:26 08/19/16 21:32 08/20/16 01:57 08/20/16 05:52 Bedside Glucose 207 185 125 Anion Gap 12 Basophils # 0.0 Basophils % 0.4 Blood Morphology Comment Blood Urea Nitrogen 14 Calcium Level 7.1 L Carbon Dioxide Level 21 Chloride Level 106 Creatinine 0.60 Eosinophils # 0.2 Eosinophils % 1.9 Glucose Level 91 # Hematocrit 27.4 L Hemoglobin 9.0 L Lymphocytes # 2.3 Lymphocytes % 19.9 Magnesium Level 1.5 L Mean Corpuscular Hemoglobin 28.4 L Mean Corpuscular Hemoglobin Concent 32.8 Mean Corpuscular Volume 86.7 Mean Platelet Volume 7.8 Monocytes # 0.3 Monocytes % 2.9 Neutrophils # 8.6 H Neutrophils % 74.9 Nucleated Red Blood Cells # 0.0 Nucleated Red Blood Cells % 0.0 Phosphorus Level 3.2 Platelet Count 189 Potassium Level 4.0 Red Blood Count 3.17 L Red Cell Distribution Width 15.6 H Sodium Level 135 White Blood Count 11.4 H Test 08/20/16 08:09 08/20/16 13:14 Bedside Glucose 93 131 Medications Medications Current Medications Sodium Chloride (NS) 1,000 ml @ 75 mls/hr [id number] IV Last administered on 08/20 11:05; Admin Dose 75 MLS/HR; Start 08/13/16 at 15:31 Lorazepam (Ativan) 0.5 mg Q6H PRN IV ANXIETY; Start 08/13/16 at 16:00 Ondansetron HCl (Zofran Inj) 4 mg Q6H PRN IV NAUSEA AND/OR VOMITING; Start 08/13 at 16:00 Nitroglycerin (Nitroglycerin (Sl Tab) 0.4 Mg) 1 tab Q5M PRN SL CHEST PAIN; Start 08/13/16 at 16:00 Acetaminophen (Tylenol Supp) 650 mg Q6H PRN [place] PAIN LEVEL 1-3 OR FEVER; Start 08/13/16 at 16:00 Morphine Sulfate (morphine) 2 mg Q4H PRN IV PAIN LEVEL 7-10 Last administered on 08/20/16 13:06; Admin Dose 2 MG; Start 08/13/16 at 16:00 Bisacodyl (Dulcolax) 5 mg DAILY PRN PO CONSTIPATION; Start 08/13/16 at 16:00 Miscellaneous Information 1 ea NOTE XX ; Start 08/13/16 at 17:30 Glucose (Glutose) 15 gm Q15M PRN PO DECREASED GLUCOSE; Start 08/13/16 at 17:30 Glucose (Glutose) 22.5 gm Q15M PRN PO DECREASED GLUCOSE; Start 08/13/16 at 17:30 Dextrose (D50w Syringe) 25 ml Q15M PRN IV DECREASED GLUCOSE; Start 08/13/16 at 17:30 Dextrose (D50w Syringe) 50 ml Q15M PRN IV DECREASED GLUCOSE; Start 08/13/16 at 17:30 Glucagon (Glucagen) 1 mg Q15M PRN IM DECREASED GLUCOSE; Start 08/13/16 at 17:30 Glucose (Glutose) 15 gm Q15M PRN BUCCAL DECREASED GLUCOSE; Start 08/13/16 at 17: 30 Mupirocin (Bactroban) 1 applic BID TOP Last administered on 08/20/16 10:29; Admin Dose 1 APPLIC; Start 08/15/16 at 13:00 Atorvastatin Calcium (Lipitor) 10 mg QHS PO Last administered on 08/19/16 21: 29; Admin Dose 10 MG; Start 08/15/16 at 21:00 Metoprolol Tartrate (Lopressor) 50 mg BID PO Last administered on 08/20/16 10: 28; Admin Dose 50 MG; Start 08/15/16 at 15:00 Diagnostic Test (Pha) (Accucheck) 1 ea 02 XX Last administered on 08/20/16 02: 00; Admin Dose 1 EA; Start 08/16/16 at 02:00 Methimazole (Tapazole) 20 mg DAILY PO Last administered on 08/20/16 11:09; Admin Dose 20 MG; Start 08/15/16 at 15:00 Insulin Glargine (Lantus) 22 unit HS SC Last administered on 08/19/16 21:43; Admin Dose 22 UNIT; Start 08/15/16 at 21:00 Linagliptin (Tradjenta) 5 mg DAILY PO Last administered on 08/20/16 10:29; Admin Dose 5 MG; Start 08/15/16 at 18:30 Rifampin 600 mg 600 mg DAILY PO Last administered on 08/20/16 10:28; Admin Dose 600 MG; Start 08/16/16 at 16:30 Ceftriaxone Sodium (Rocephin) 50 ml @ 100 mls/hr Q24H IVPB Last administered on 08/19/16 16:52; Admin Dose 100 MLS/HR; Start 1/11/17 at 15:30 IV Flush (NS 10 ml) 10 ml PRN PRN IV IV PROTOCOL; Start 08/16/16 at 15:30 Collagenase 1 applic 1 applic DAILY TOP Last administered on 08/20/16 10:30; Admin Dose 1 APPLIC; Start 08/17/16 at 09:00 Vancomycin HCl/ Sodium Chloride (Vancocin/NS) 250 ml @ 83.333 mls/ hr Q24H IVPB Last administered on 08/20/16 05:09; Admin Dose 83.333 MLS/HR; Start at 06:00 Pantoprazole (Protonix Tab) 40 mg DAILY@06 PO Last administered on 08/20/16 05 :10; Admin Dose 40 MG; Start 08/20/16 at 06:00 ALEXANDRA CHAVEZ NP Aug 20, 2016 15:14
[2016-08-20] MEDS: CEFTRIAXONE 1 GM/50 ML (PMX) 50 ML IVPB SCH (15:54)
--- NOTE | 2016-08-20 17:24 | OPR ---
DATE OF OPERATION: 08/20/2016 SURGEON: Anni Hinds DPM STAFF PHARMACIST HOSPITAL: None. PREOPERATIVE DIAGNOSES: 1. Chronic nonhealing ulcerations, bilateral feet. 2. Cellulitis. 3. Methicillin-resistant Staphylococcus aureus. 4. Sepsis. 5. Polymicrobial urinary tract infection. 6. Diabetes type 2. 7. Upper gastrointestinal bleed. POSTOPERATIVE DIAGNOSES: 1. Chronic nonhealing ulcerations, bilateral feet. 2. Cellulitis. 3. Methicillin-resistant Staphylococcus aureus. 4. Sepsis. 5. Polymicrobial urinary tract infection. 6. Diabetes type 2. 7. Upper gastrointestinal bleed. PROCEDURES PERFORMED: 1. Excisional debridement skin, subcutaneous tissue, muscle, and fascia to the right first metatars ophalangeal joint 2 x 2 cm, right posterior heel of 4 x 6 cm, to left heel 3 x 4 cm. 2. Excisional debridement of skin, subcutaneous tissue, left plantar foot ulcerations, 2 x 1 cm and 1 x 1 cm. PATHOLOGY: None. ANESTHESIA: None. ESTIMATED BLOOD LOSS: 10 mL. COMPLICATIONS: None. INDICATION FOR PROCEDURE: The patient with polymicrobial infection with MRSA, Proteus mirabilis, frey s nonviable tissue to multiple wounds. Family here. Consent obtained for debridement. All questio ns answered to their satisfaction. The patient agrees to required staged debridement of wounds. DESCRIPTION OF PROCEDURE: The patient seen at bedside. Was given morphine for pain. The wounds we re cleansed with antiseptic solution. At this time, using pickup and scissors and a 15 blade, excis ional debridement performed to multiple ulcerations. The ulceration on the medial aspect of the fir st metatarsophalangeal joint measuring 2 x 2 cm and excisional debridement included skin, subcutaneo us tissue, and ligament. Attention was directed to the posterior aspect of the heel and tissue debr ided excisionally including skin, subcutaneous tissue, fascia, muscle. Ulceration post-debridement measured 4 x 6 cm. Attention was directed to the left posterior heel and excisional debridement per formed of skin, subcutaneous tissue, ligament, and muscle 3 x 4 cm. To the plantar left foot, she h ad eschars. This was debrided with a pickup and 15 blade and had 2 different ulcerations, one measu red 2.1 cm and the other 1 x 1 cm and excisional including skin, subcutaneous tissue. Wounds were c leansed with topical antiseptic solution. Applied Santyl, 4x4 gauze, and Kerlix. The patient had e stimated blood loss of 10 mL. Hemostasis was achieved with compression and was wrapped with a bulky dressing. The patient tolerated procedure well. Coordination of care discussed with the nurses. Recommend reinforcement of dressing if strikethrough and can obtain a repeat culture with next dress ing change. Dictated By: ANNI HINDS DPM RB/TIN Conf#: [id number] DID#: [id number] CC: SÁNCHEZ WOMACK MD;*EndCC*
[2016-08-20] MEDS: ATORVASTATIN 10 MG TAB PO SCH (21:58)
[2016-08-20] MEDS: INSULIN GLARGINE [LANtus] 3 ML PEN SC SCH (22:09)
[2016-08-21] VITALS (12 sets, daily range): BP systolic 120–152; BP diastolic 60–110; PULSE 80–98; RESP 16–21
[2016-08-21] MEDS: ACCUCHECK XX SCH (01:17)
[2016-08-21] MEDS: VANCOMYCIN 1.25 GM in SOD CHLORIDE 0.9% 250 ML IVPB SCH (05:17)
[2016-08-21] MEDS: PANTOPRAZOLE (EC) 40 MG TAB PO SCH (05:17)
[2016-08-21 06:13] LABS: EOSINOPHILS # 0.2 10^3/ul (0.0-0.5); EOSINOPHILS % 2.8 % (0.0-7.0); HEMATOCRIT 23.2 % (37.0-47.0); HEMOGLOBIN 7.8 g/dl (12.0-16.0); LYMPHOCYTES # 1.3 10^3/ul (0.8-2.9); LYMPHOCYTES % 16.3 % (15.0-51.0); MEAN CORPUSCULAR HGB CONC 33.7 g/dl (32.0-37.0); MEAN CORPUSCULAR VOLUME 85.9 fl (82.0-101.0); MEAN PLATELET VOLUME 8.3 fl (7.4-10.4); MONOCYTE # 0.3 10^3/ul (0.3-0.9); MONOCYTES % 4.4 % (0.0-11.0); NEUTROPHIL # 5.9 10^3/ul (1.6-7.5); NEUTROPHILS % 76.5 % (39.0-77.0); PLATELET COUNT 152 10^3/UL (140-440); UNCORRECTED WBC 7.7 10^3/ul (4.8-10.8); WHITE BLOOD COUNT 7.7 10^3/ul (4.8-10.8)
[2016-08-21 06:22] LABS: CONDITION 1; LH ANALYZER COMMENTS 1
[2016-08-21 06:41] LABS: MAGNESIUM 1.6 mg/dl (1.7-2.5); PHOSPHORUS 3.2 mg/dl (2.5-4.9)
[2016-08-21 06:42] LABS: POTASSIUM 4.2 mmol/L (3.5-5.1)
[2016-08-21 06:45] LABS: CALCIUM 6.8 mg/dl (8.4-10.2); CREATININE 0.53 mg/dl (0.44-1.00)
[2016-08-21] MEDS: INSULIN ASPART [NOVOLOG] 3 ML PEN SC SCH ×7 (07:42→21:00)
[2016-08-21] MEDS: LINAGLIPTIN 5 MG TABLET PO SCH (08:50)
[2016-08-21] MEDS: MUPIROCIN 2% 22 GM OINT TOP SCH ×2 (08:51→23:05)
[2016-08-21] MEDS: METOPROLOL 50 MG TAB PO SCH ×2 (08:51→21:09)
[2016-08-21] MEDS: COLLAGENASE 30 GM TUBE TOP SCH (08:51)
[2016-08-21] MEDS: SOD CHLORIDE 0.9% 1,000 ML IV SCH ×3 (09:01→21:27)
[2016-08-21] MEDS: RIFAMPIN 300 MG CAP PO SCH (10:13)
[2016-08-21] MEDS: METHIMAZOLE 5 MG TAB PO SCH (10:13)
--- NOTE | 2016-08-21 12:08 | CONS ---
Date/Time of Note Date/Time of Note DATE: 08/21/16 TIME: 12:04 Assessment/Plan Assessment/Plan Additional Assessment/Plan Sepsis with positive blood cultures Atrial fibrillation with rapid ventricular rates, improved Acute blood loss anemia Preserved ejection fraction Hyperthyroidism History of congestive heart failure History of hypertension History of CVA Possible GI bleed Diabetes -Patient with worsening hemoglobin, likely after debridement. Heart rate increasing, consider blood transfusion, anticoagulation on hold. Will supplement magnesium. Consultation Date/Type/Reason Admit Date/Time Aug 14, 2016 at 01:54 Initial Consult Date 08/15/16 Type of Consultation: cv Referring Provider: SNÁCHEZ WOMACK MD 24 HR Interval Summary Free Text/Dictation Patient denies shortness of breath, palpitations or chest pain Exam/Review of Systems Vital Signs Vitals Vital Signs Date Time Temp Pulse Resp B/P Pulse Ox O2 Delivery O2 Flow Rate FiO2 08/21/16 11:45 98.2 90 18 120/72 98 08/21/16 08:10 Nasal Cannula 2.0 Intake and Output 08/20/16 08/20/16 08/21/16 15:00 23:00 07:00 Intake Total 850 ml 450 ml Output Total 750 ml 600 ml Balance 100 ml -150 ml Exam Follows commands, no apparent distress Constitutional: alert Head: normocephalic Neck: supple Respiratory: other (course breath sounds bilaterally, no wheezing) Cardiovascular: irregular rhythm, other (S1-S2 heard) Gastrointestinal: bowel sounds, non-tender, soft Extremities: edema Results Result Diagram: 08/21/16 0500 08/21/16 0500 Results 24 hrs Laboratory Tests Test 08/20/16 13:14 08/20/16 17:51 08/20/16 21:23 08/21/16 01:14 Bedside Glucose 131 266 H 274 H 206 Test 08/21/16 05:00 08/21/16 07:23 Anion Gap 7 L Basophils # 0.0 Basophils % 0.0 Blood Morphology Comment Blood Urea Nitrogen 12 Calcium Level 6.8 L Carbon Dioxide Level 24 Chloride Level 108 Creatinine 0.53 Eosinophils # 0.2 Eosinophils % 2.8 Glucose Level 120 Hematocrit 23.2 L Hemoglobin 7.8 L Lymphocytes # 1.3 Lymphocytes % 16.3 Magnesium Level 1.6 L Mean Corpuscular Hemoglobin 29.0 Mean Corpuscular Hemoglobin Concent 33.7 Mean Corpuscular Volume 85.9 Mean Platelet Volume 8.3 Monocytes # 0.3 Monocytes % 4.4 Neutrophils # 5.9 Neutrophils % 76.5 Nucleated Red Blood Cells # 0.0 Nucleated Red Blood Cells % 0.0 Phosphorus Level 3.2 Platelet Count 152 Potassium Level 4.2 Red Blood Count 2.70 L Red Cell Distribution Width 16.0 H Sodium Level 135 White Blood Count 7.7 # Bedside Glucose 124 Medications Medications Current Medications Sodium Chloride (NS) 1,000 ml @ 75 mls/hr [id number] IV Last administered on 08/20 21:59; Admin Dose 75 MLS/HR; Start 08/13/16 at 15:31 Lorazepam (Ativan) 0.5 mg Q6H PRN IV ANXIETY; Start 08/13/16 at 16:00 Ondansetron HCl (Zofran Inj) 4 mg Q6H PRN IV NAUSEA AND/OR VOMITING; Start 08/13 at 16:00 Nitroglycerin (Nitroglycerin (Sl Tab) 0.4 Mg) 1 tab Q5M PRN SL CHEST PAIN; Start 08/13/16 at 16:00 Acetaminophen (Tylenol Supp) 650 mg Q6H PRN [place] PAIN LEVEL 1-3 OR FEVER; Start 08/13/16 at 16:00 Morphine Sulfate (morphine) 2 mg Q4H PRN IV PAIN LEVEL 7-10 Last administered on 08/20/16 13:06; Admin Dose 2 MG; Start 08/13/16 at 16:00 Bisacodyl (Dulcolax) 5 mg DAILY PRN PO CONSTIPATION; Start 08/13/16 at 16:00 Miscellaneous Information 1 ea NOTE XX ; Start 08/13/16 at 17:30 Glucose (Glutose) 15 gm Q15M PRN PO DECREASED GLUCOSE; Start 08/13/16 at 17:30 Glucose (Glutose) 22.5 gm Q15M PRN PO DECREASED GLUCOSE; Start 08/13/16 at 17:30 Dextrose (D50w Syringe) 25 ml Q15M PRN IV DECREASED GLUCOSE; Start 08/13/16 at 17:30 Dextrose (D50w Syringe) 50 ml Q15M PRN IV DECREASED GLUCOSE; Start 08/13/16 at 17:30 Glucagon (Glucagen) 1 mg Q15M PRN IM DECREASED GLUCOSE; Start 08/13/16 at 17:30 Glucose (Glutose) 15 gm Q15M PRN BUCCAL DECREASED GLUCOSE; Start 08/13/16 at 17: 30 Mupirocin (Bactroban) 1 applic BID TOP Last administered on 08/21/16 08:51; Admin Dose 1 APPLIC; Start 08/15/16 at 13:00 Atorvastatin Calcium (Lipitor) 10 mg QHS PO Last administered on 08/20/16 21: 58; Admin Dose 10 MG; Start 08/15/16 at 21:00 Metoprolol Tartrate (Lopressor) 50 mg BID PO Last administered on 08/21/16 08: 51; Admin Dose 50 MG; Start 08/15/16 at 15:00 Diagnostic Test (Pha) (Accucheck) 1 ea 02 XX Last administered on 08/21/16 01: 17; Admin Dose 1 EA; Start 08/16/16 at 02:00 Methimazole (Tapazole) 20 mg DAILY PO Last administered on 08/21/16 10:13; Admin Dose 20 MG; Start 08/15/16 at 15:00 Insulin Glargine (Lantus) 22 unit HS SC Last administered on 08/20/16 22:09; Admin Dose 22 UNIT; Start 08/15/16 at 21:00 Linagliptin (Tradjenta) 5 mg DAILY PO Last administered on 08/21/16 08:50; Admin Dose 5 MG; Start 08/15/16 at 18:30 Rifampin 600 mg 600 mg DAILY PO Last administered on 08/21/16 10:13; Admin Dose 600 MG; Start 08/16/16 at 16:30 Ceftriaxone Sodium (Rocephin) 50 ml @ 100 mls/hr Q24H IVPB Last administered on 08/20/16 15:54; Admin Dose 100 MLS/HR; Start 08/16/16 at 15:30 IV Flush (NS 10 ml) 10 ml PRN PRN IV IV PROTOCOL; Start 08/16/16 at 15:30 Collagenase 1 applic 1 applic DAILY TOP Last administered on 08/21/16 08:51; Admin Dose 1 APPLIC; Start 08/17/16 at 09:00 Vancomycin HCl/ Sodium Chloride (Vancocin/NS) 250 ml @ 83.333 mls/ hr Q24H IVPB Last administered on 08/21/16 05:17; Admin Dose 83.333 MLS/HR; Start at 06:00 Pantoprazole (Protonix Tab) 40 mg DAILY@06 PO Last administered on 08/21/16 05 :17; Admin Dose 40 MG; Start 08/20/16 at 06:00 Miscellaneous Information (*Rx Drug Level Order Reminder*) 1 ONCE ONCE XX ; Start 08/22/16 at 05:00; Stop 08/22/16 at 05:01 Shawn Lozada DO Aug 21, 2016 12:08
[2016-08-21] MEDS ORDERED: MAGNESIUM SULFATE 2 GM/50 ML 50 ML IVPB SCH (12:30)
--- NOTE | 2016-08-21 13:28 | CONS ---
Date/Time of Note Date/Time of Note DATE: 08/21/16 TIME: 13:26 Assessment/Plan Assessment/Plan Additional Assessment/Plan Additional Assessment/Plan IMPRESSION: 1. Upper gastrointestinal bleeding, rule out peptic ulcer disease, rule out Faye-Jhonson tear, rule out gastroesophageal reflux disease. 2. Hypertension. 3. Cerebrovascular accident. 4. Diabetes mellitus. 5. Hyperthyroidism. 6. Anemia.ht 27 now,no acute g.i. bleeding 7. Sepsis with positive blood culture.MRSA,on antibiotics 8. Urinary tract infection. 9. edema upper extremity Plan no further bleeding,further drop in ht.secondary to hydration continue antibiotics monitor H&H d/c Protonix drip,changed to PO significant drop in ht.,as per staff no evidence of active gi bleeding.no melena or rectal bleeding. Consultation Date/Type/Reason Admit Date/Time Aug 14, 2016 at 01:54 Initial Consult Date 08/15/16 Type of Consultation: cv Referring Provider: SÁNCHEZ WOMACK MD 24 HR Interval Summary Constitutional: improved, no complaints Exam/Review of Systems Vital Signs Vitals Vital Signs Date Time Temp Pulse Resp B/P Pulse Ox O2 Delivery O2 Flow Rate FiO2 08/21/16 12:18 80 08/21/16 11:45 98.2 18 120/72 98 08/21/16 08:10 Nasal Cannula 2.0 Intake and Output 08/20/16 08/20/16 08/21/16 15:00 23:00 07:00 Intake Total 850 ml 450 ml Output Total 750 ml 600 ml Balance 100 ml -150 ml Exam Constitutional: alert, oriented, well developed Psych: nl mood/affect, no complaints Head: atraumatic, normocephalic Eyes: EOMI, PERRL, nl conjunctiva, nl lids, nl sclera ENMT: nl external ears & nose, nl lips & teeth, nl nasal mucosa & septum Neck: non-tender, supple Respiratory: clear to auscultation, normal air movement Cardiovascular: nl pulses, regular rate and rhythm Gastrointestinal: nl liver, spleen, non-tender, soft Musculoskeletal: nl extremities to inspection, nl gait and stance Extremities: normal pulses Neurological: PRESS SETTER II-XII intact, nl mental status, nl speech, nl strength Skin: nl turgor, No rash or lesions Lymph: nl lymph nodes Results Result Diagram: 08/21/16 0500 08/21/16 0500 Results 24 hrs Laboratory Tests Test 08/20/16 17:51 08/20/16 21:23 08/21/16 01:14 08/21/16 05:00 Bedside Glucose 266 H 274 H 206 Anion Gap 7 L Basophils # 0.0 Basophils % 0.0 Blood Morphology Comment Blood Urea Nitrogen 12 Calcium Level 6.8 L Carbon Dioxide Level 24 Chloride Level 108 Creatinine 0.53 Eosinophils # 0.2 Eosinophils % 2.8 Glucose Level 120 Hematocrit 23.2 L Hemoglobin 7.8 L Lymphocytes # 1.3 Lymphocytes % 16.3 Magnesium Level 1.6 L Mean Corpuscular Hemoglobin 29.0 Mean Corpuscular Hemoglobin Concent 33.7 Mean Corpuscular Volume 85.9 Mean Platelet Volume 8.3 Monocytes # 0.3 Monocytes % 4.4 Neutrophils # 5.9 Neutrophils % 76.5 Nucleated Red Blood Cells # 0.0 Nucleated Red Blood Cells % 0.0 Phosphorus Level 3.2 Platelet Count 152 Potassium Level 4.2 Red Blood Count 2.70 L Red Cell Distribution Width 16.0 H Sodium Level 135 White Blood Count 7.7 # Test 08/21/16 07:23 08/21/16 12:13 Bedside Glucose 124 113 Medications Medications Current Medications Sodium Chloride (NS) 1,000 ml @ 75 mls/hr [id number] IV Last administered on 08/20 21:59; Admin Dose 75 MLS/HR; Start 08/13/16 at 15:31 Lorazepam (Ativan) 0.5 mg Q6H PRN IV ANXIETY; Start 08/13/16 at 16:00 Ondansetron HCl (Zofran Inj) 4 mg Q6H PRN IV NAUSEA AND/OR VOMITING; Start 08/13 at 16:00 Nitroglycerin (Nitroglycerin (Sl Tab) 0.4 Mg) 1 tab Q5M PRN SL CHEST PAIN; Start 08/13/16 at 16:00 Acetaminophen (Tylenol Supp) 650 mg Q6H PRN [place] PAIN LEVEL 1-3 OR FEVER; Start 08/13/16 at 16:00 Morphine Sulfate (morphine) 2 mg Q4H PRN IV PAIN LEVEL 7-10 Last administered on 08/20/16 13:06; Admin Dose 2 MG; Start 08/13/16 at 16:00 Bisacodyl (Dulcolax) 5 mg DAILY PRN PO CONSTIPATION; Start 08/13/16 at 16:00 Miscellaneous Information 1 ea NOTE XX ; Start 08/13/16 at 17:30 Glucose (Glutose) 15 gm Q15M PRN PO DECREASED GLUCOSE; Start 08/13/16 at 17:30 Glucose (Glutose) 22.5 gm Q15M PRN PO DECREASED GLUCOSE; Start 08/13/16 at 17:30 Dextrose (D50w Syringe) 25 ml Q15M PRN IV DECREASED GLUCOSE; Start 08/13/16 at 17:30 Dextrose (D50w Syringe) 50 ml Q15M PRN IV DECREASED GLUCOSE; Start 08/13/16 at 17:30 Glucagon (Glucagen) 1 mg Q15M PRN IM DECREASED GLUCOSE; Start 08/13/16 at 17:30 Glucose (Glutose) 15 gm Q15M PRN BUCCAL DECREASED GLUCOSE; Start 08/13/16 at 17: 30 Mupirocin (Bactroban) 1 applic BID TOP Last administered on 08/21/16 08:51; Admin Dose 1 APPLIC; Start 08/15/16 at 13:00 Atorvastatin Calcium (Lipitor) 10 mg QHS PO Last administered on 08/20/16 21: 58; Admin Dose 10 MG; Start 08/15/16 at 21:00 Metoprolol Tartrate (Lopressor) 50 mg BID PO Last administered on 08/21/16 08: 51; Admin Dose 50 MG; Start 08/15/16 at 15:00 Diagnostic Test (Pha) (Accucheck) 1 ea 02 XX Last administered on 08/21/16 01: 17; Admin Dose 1 EA; Start 08/16/16 at 02:00 Methimazole (Tapazole) 20 mg DAILY PO Last administered on 08/21/16 10:13; Admin Dose 20 MG; Start 08/15/16 at 15:00 Insulin Glargine (Lantus) 22 unit HS SC Last administered on 08/20/16 22:09; Admin Dose 22 UNIT; Start 08/15/16 at 21:00 Linagliptin (Tradjenta) 5 mg DAILY PO Last administered on 08/21/16 08:50; Admin Dose 5 MG; Start 08/15/16 at 18:30 Rifampin 600 mg 600 mg DAILY PO Last administered on 08/21/16 10:13; Admin Dose 600 MG; Start 08/16/16 at 16:30 Ceftriaxone Sodium (Rocephin) 50 ml @ 100 mls/hr Q24H IVPB Last administered on 08/20/16 15:54; Admin Dose 100 MLS/HR; Start 08/16/16 at 15:30 IV Flush (NS 10 ml) 10 ml PRN PRN IV IV PROTOCOL; Start 08/16/16 at 15:30 Collagenase 1 applic 1 applic DAILY TOP Last administered on 08/21/16 08:51; Admin Dose 1 APPLIC; Start 08/17/16 at 09:00 Vancomycin HCl/ Sodium Chloride (Vancocin/NS) 250 ml @ 83.333 mls/ hr Q24H IVPB Last administered on 08/21/16 05:17; Admin Dose 83.333 MLS/HR; Start at 06:00 Pantoprazole (Protonix Tab) 40 mg DAILY@06 PO Last administered on 08/21/16 05 :17; Admin Dose 40 MG; Start 08/20/16 at 06:00 Miscellaneous Information 1 ONCE ONCE XX ; Start 08/22/16 at 05:00; Stop at 05:01 Magnesium Sulfate (Magnesium Sulfate 2 Gm/50 ml) 50 ml @ 25 mls/hr ONCE IVPB Last administered on 08/21/16 12:45; Admin Dose 25 MLS/HR; Start 08/21/16 at 12 :30; Stop 08/21/16 at 14:29 CHANCE QUEZADA MD Aug 21, 2016 13:28
--- NOTE | 2016-08-21 15:26 | PN ---
Date/Time of Note Date/Time of Note DATE: 08/21/16 TIME: 15:20 Assessment/Plan VTE Prophylaxis VTE Prophylaxis Intervention: SCD's Assessment/Plan Chief Complaint/Hosp Course 1. Upper gastrointestinal bleeding. The patient was evaluated by gastroenterology. Esophagogastroduodenoscopy revealed a Faye-Johnson tear, chronic gastritis, and nodular duodenitis. Continue proton pump inhibitors. 2. Atrial fibrillation with rapid ventricular response. Currently, the rate is controlled. No anticoagulation because of underlying gastrointestinal bleed. Cardiology following. 3. Sepsis with underlying MRSA bacteremia, infected pressure ulcers, and urinary tract infection. Continue antibiotics. Infectious disease is on the case. 4. Infected right heel pressure ulcer. Seen and evaluated by podiatry, s/p local debridement. 5. Essential hypertension. Continue antihypertensives. 6. Peripheral vascular disease. Monitor for acute changes. Anticoagulation on hold because of current gastrointestinal bleed. 7. Dyslipidemia. Continue statins. Fasting lipid panel showing low HDL and low total cholesterol. 8. Type 2 diabetes mellitus. Hemoglobin A1c 9.8. Continue sliding scale insulin. 9. Left upper extremity edema. Left upper extremity venous Doppler study negative for any deep venous thrombosis. Continue elevation of left upper extremity. 10. Multiple pressure ulcers. Continue local wound care. Wound care consult. 11. Hyperthyroidism. The patient was started on methimazole. 12. MRSA colonization of the nares. Continue Bactroban. 13. Fluid, electrolytes and nutrition. Carbohydrate controlled, low- cholesterol diet. 14. DVT prophylaxis with serial sequential compression devices. No anticoagulation because of underlying GI bleed. 15. Gastrointestinal prophylaxis with proton pump inhibitors. Problems: Subjective 24 Hr Interval Summary Constitutional: no complaints Exam/Review of Systems Vital Signs Vitals Vital Signs Date Time Temp Pulse Resp B/P Pulse Ox O2 Delivery O2 Flow Rate FiO2 08/21/16 12:18 80 08/21/16 11:45 98.2 18 120/72 98 08/21/16 08:10 Nasal Cannula 2.0 Intake and Output 08/20/16 08/20/16 08/21/16 15:00 23:00 07:00 Intake Total 850 ml 450 ml Output Total 750 ml 600 ml Balance 100 ml -150 ml Exam Constitutional: alert Respiratory: clear to auscultation Cardiovascular: regular rate and rhythm Gastrointestinal: soft, No distended Musculoskeletal: No nl extremities to inspection Results Result Diagram: 08/21/16 0500 08/21/16 0500 Results 24 hrs Laboratory Tests Test 08/20/16 17:51 08/20/16 21:23 08/21/16 01:14 08/21/16 05:00 Bedside Glucose 266 H 274 H 206 Anion Gap 7 L Basophils # 0.0 Basophils % 0.0 Blood Morphology Comment Blood Urea Nitrogen 12 Calcium Level 6.8 L Carbon Dioxide Level 24 Chloride Level 108 Creatinine 0.53 Eosinophils # 0.2 Eosinophils % 2.8 Glucose Level 120 Hematocrit 23.2 L Hemoglobin 7.8 L Lymphocytes # 1.3 Lymphocytes % 16.3 Magnesium Level 1.6 L Mean Corpuscular Hemoglobin 29.0 Mean Corpuscular Hemoglobin Concent 33.7 Mean Corpuscular Volume 85.9 Mean Platelet Volume 8.3 Monocytes # 0.3 Monocytes % 4.4 Neutrophils # 5.9 Neutrophils % 76.5 Nucleated Red Blood Cells # 0.0 Nucleated Red Blood Cells % 0.0 Phosphorus Level 3.2 Platelet Count 152 Potassium Level 4.2 Red Blood Count 2.70 L Red Cell Distribution Width 16.0 H Sodium Level 135 White Blood Count 7.7 # Test 08/21/16 07:23 08/21/16 12:13 Bedside Glucose 124 113 Medications Medications Current Medications Sodium Chloride (NS) 1,000 ml @ 75 mls/hr [id number] IV Last administered on 08/20 21:59; Admin Dose 75 MLS/HR; Start 08/13/16 at 15:31 Lorazepam (Ativan) 0.5 mg Q6H PRN IV ANXIETY; Start 08/13/16 at 16:00 Ondansetron HCl (Zofran Inj) 4 mg Q6H PRN IV NAUSEA AND/OR VOMITING; Start 08/13 at 16:00 Nitroglycerin (Nitroglycerin (Sl Tab) 0.4 Mg) 1 tab Q5M PRN SL CHEST PAIN; Start 08/13/16 at 16:00 Acetaminophen (Tylenol Supp) 650 mg Q6H PRN [place] PAIN LEVEL 1-3 OR FEVER; Start 08/13/16 at 16:00 Morphine Sulfate (morphine) 2 mg Q4H PRN IV PAIN LEVEL 7-10 Last administered on 08/20/16 13:06; Admin Dose 2 MG; Start 08/13/16 at 16:00 Bisacodyl (Dulcolax) 5 mg DAILY PRN PO CONSTIPATION; Start 08/13/16 at 16:00 Miscellaneous Information 1 ea NOTE XX ; Start 08/13/16 at 17:30 Glucose (Glutose) 15 gm Q15M PRN PO DECREASED GLUCOSE; Start 08/13/16 at 17:30 Glucose (Glutose) 22.5 gm Q15M PRN PO DECREASED GLUCOSE; Start 08/13/16 at 17:30 Dextrose (D50w Syringe) 25 ml Q15M PRN IV DECREASED GLUCOSE; Start 08/13/16 at 17:30 Dextrose (D50w Syringe) 50 ml Q15M PRN IV DECREASED GLUCOSE; Start 08/13/16 at 17:30 Glucagon (Glucagen) 1 mg Q15M PRN IM DECREASED GLUCOSE; Start 08/13/16 at 17:30 Glucose (Glutose) 15 gm Q15M PRN BUCCAL DECREASED GLUCOSE; Start 08/13/16 at 17: 30 Mupirocin (Bactroban) 1 applic BID TOP Last administered on 08/21/16 08:51; Admin Dose 1 APPLIC; Start 08/15/16 at 13:00 Atorvastatin Calcium (Lipitor) 10 mg QHS PO Last administered on 08/20/16 21: 58; Admin Dose 10 MG; Start 08/15/16 at 21:00 Metoprolol Tartrate (Lopressor) 50 mg BID PO Last administered on 08/21/16 08: 51; Admin Dose 50 MG; Start 08/15/16 at 15:00 Diagnostic Test (Pha) (Accucheck) 1 ea 02 XX Last administered on 08/21/16 01: 17; Admin Dose 1 EA; Start 08/16/16 at 02:00 Methimazole (Tapazole) 20 mg DAILY PO Last administered on 08/21/16 10:13; Admin Dose 20 MG; Start 08/15/16 at 15:00 Insulin Glargine (Lantus) 22 unit HS SC Last administered on 08/20/16 22:09; Admin Dose 22 UNIT; Start 08/15/16 at 21:00 Linagliptin (Tradjenta) 5 mg DAILY PO Last administered on 08/21/16 08:50; Admin Dose 5 MG; Start 08/15/16 at 18:30 Rifampin 600 mg 600 mg DAILY PO Last administered on 08/21/16 10:13; Admin Dose 600 MG; Start 08/16/16 at 16:30 Ceftriaxone Sodium (Rocephin) 50 ml @ 100 mls/hr Q24H IVPB Last administered on 08/20/16 15:54; Admin Dose 100 MLS/HR; Start 08/16/16 at 15:30 IV Flush (NS 10 ml) 10 ml PRN PRN IV IV PROTOCOL; Start 08/16/16 at 15:30 Collagenase 1 applic 1 applic DAILY TOP Last administered on 08/21/16 08:51; Admin Dose 1 APPLIC; Start 08/17/16 at 09:00 Vancomycin HCl/ Sodium Chloride (Vancocin/NS) 250 ml @ 83.333 mls/ hr Q24H IVPB Last administered on 08/21/16 05:17; Admin Dose 83.333 MLS/HR; Start at 06:00 Pantoprazole (Protonix Tab) 40 mg DAILY@06 PO Last administered on 08/21/16 05 :17; Admin Dose 40 MG; Start 08/20/16 at 06:00 Miscellaneous Information (*Rx Drug Level Order Reminder*) 1 ONCE ONCE XX ; Start 08/22/16 at 05:00; Stop 08/22/16 at 05:01 MEG PETERSON Aug 21, 2016 15:26
--- NOTE | 2016-08-21 15:36 | CONS ---
Date/Time of Note Date/Time of Note DATE: 08/21/16 TIME: 15:33 Assessment/Plan Assessment/Plan Chief Complaint/Hosp Course ID PROGRESS NOTE TOTAL ABX DAY #8 => Vanco IV, Ceftriaxone, Rifampin 24H INTERVAL SUMMARY * No new issues,still waiting for 2nd GNR in heel wound ID C&S from [facility] * Awake, alert, follows commands, left sided hemiplegia - tells me she feels good * No fevers, renal fx stable, WBC slightly up - stable * HEEL WOUND FINAL STILL PENDING [place]: 08/15/16 Rcvd: 08/15/16 Source: HEEL Sp Descrip: RIGHT Microbiology GRAM STAIN Final EPITHELIAL CELLS 1+ GRAM POS COCCI IN PAIRS 1+ WOUND CULTURE Preliminary Organism 1 METHICILLIN RESISTANT S.AUREUS QUANTITY 2+ . MULTI DRUG RESISTANT ORGANISM Organism 2 PROTEUS MIRABILIS QUANTITY SCANT GROWTH Organism 3 GRAM NEGATIVE MARIELA QUANTITY RARE PREVIOUSLY REPORTED MRSA MRSA P. MIRAB M.I.C. RX M.I.C. RX --------- --- --------- --- AMPICILLIN <=2 S CEFAZOLIN R CEFOTAXIME S CIPROFLOXACIN 4 R 1 S CLINDAMYCIN >=8 R DOXYCYCLINE S ERYTHROMYCIN >=8 R GENTAMICIN <=1 S LEVOFLOXACIN 4 R 1 S OXACILLIN >=4 R PENICILLIN-G >=0.5 R RIFAMPIN <=0.5 S VANCOMYCIN 1 S TOBRAMYCIN <=1 S TRIMETHOPRIM/SULFAMETHOXAZOLE <=10 S <=20 S PHYSICAL EXAMINATION: GENERAL: 81 yo F HEENT: Unremarkable = eyes remain closed NECK: Supple, trachea midline. CHEST: Rise symmetrical without dyspnea HEART: RRR ABDOMEN: Soft EXTREMITIES: Warm -> BUEXT w/edema L>R, BLEXT DSG C/D/I ID ASSESSMENT: 81 yo F w.PMHx CVA w/left sided hemiparesis admit with: 1. s/p Sepsis w/ Methicillin-resistant Staphylococcus aureus bacteremia = RESOLVED * Repeat BCx(-) * Leukocytosis = resolving * No fevers 2. Polymicrobial urinary tract infection with urine culture growing MRSA and E. coli. 3. Probable neurogenic bladder 4. Non-healing BLEXT Bilateral heel cellulitis with open wounds, right more than left with right foot wound culture growing MRSA/Proteus Miribilis/ GNR #2 pending * X-RAY: Right foot reveals a calcaneal deformity, likely from deformity or trauma. Osteopenia, without evidence of osteomyelitis. * X-RAY: Left foot without fracture or dislocation. Osteopenia, without focal blastic or lytic lesion. 5. Peripheral vascular disease 6. HTN, HLD, Atherosclerosis 7. 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 Atrial fibrillation w/hx of RVR 9. Anemia, status post hematemesis and EGD that revealed Faye-Johnson tear and chronic gastritis. 10. GERD 11. Hyperthyroidism 12. LUEXT Edema (+)MRSA Nares ABX ALLERGY: PCN, SULFA INVASIVES: *PIV CURRENT ABX: #8 => Vanco IV, Ceftriaxone, Rifampin ID RECOMMENDATIONS: * CONTINUE Current ABX & wound care * f/u on heel culture final micro -> GNR #2 still pending * Anticipate at least 14 days Vanco IV for MRSA bacteremia, possible more * Further recs APC . . Problems: Consultation Date/Type/Reason Admit Date/Time Aug 14, 2016 at 01:54 Initial Consult Date 08/15/16 Type of Consultation: ID Referring Provider: SÁNCHEZ WOMACK MD Exam/Review of Systems Vital Signs Vitals Vital Signs Date Time Temp Pulse Resp B/P Pulse Ox O2 Delivery O2 Flow Rate FiO2 08/21/16 12:18 80 08/21/16 11:45 98.2 18 120/72 98 08/21/16 08:10 Nasal Cannula 2.0 Intake and Output 08/20/16 08/20/16 08/21/16 15:00 23:00 07:00 Intake Total 850 ml 450 ml Output Total 750 ml 600 ml Balance 100 ml -150 ml Results Result Diagram: 08/21/16 0500 08/21/16 0500 Results 24 hrs Laboratory Tests Test 08/20/16 17:51 08/20/16 21:23 08/21/16 01:14 08/21/16 05:00 Bedside Glucose 266 H 274 H 206 Anion Gap 7 L Basophils # 0.0 Basophils % 0.0 Blood Morphology Comment Blood Urea Nitrogen 12 Calcium Level 6.8 L Carbon Dioxide Level 24 Chloride Level 108 Creatinine 0.53 Eosinophils # 0.2 Eosinophils % 2.8 Glucose Level 120 Hematocrit 23.2 L Hemoglobin 7.8 L Lymphocytes # 1.3 Lymphocytes % 16.3 Magnesium Level 1.6 L Mean Corpuscular Hemoglobin 29.0 Mean Corpuscular Hemoglobin Concent 33.7 Mean Corpuscular Volume 85.9 Mean Platelet Volume 8.3 Monocytes # 0.3 Monocytes % 4.4 Neutrophils # 5.9 Neutrophils % 76.5 Nucleated Red Blood Cells # 0.0 Nucleated Red Blood Cells % 0.0 Phosphorus Level 3.2 Platelet Count 152 Potassium Level 4.2 Red Blood Count 2.70 L Red Cell Distribution Width 16.0 H Sodium Level 135 White Blood Count 7.7 # Test 08/21/16 07:23 08/21/16 12:13 Bedside Glucose 124 113 Medications Medications Current Medications Sodium Chloride (NS) 1,000 ml @ 75 mls/hr [id number] IV Last administered on 08/20 21:59; Admin Dose 75 MLS/HR; Start 08/13/16 at 15:31 Lorazepam (Ativan) 0.5 mg Q6H PRN IV ANXIETY; Start 08/13/16 at 16:00 Ondansetron HCl (Zofran Inj) 4 mg Q6H PRN IV NAUSEA AND/OR VOMITING; Start 08/13 at 16:00 Nitroglycerin (Nitroglycerin (Sl Tab) 0.4 Mg) 1 tab Q5M PRN SL CHEST PAIN; Start 08/13/16 at 16:00 Acetaminophen (Tylenol Supp) 650 mg Q6H PRN [place] PAIN LEVEL 1-3 OR FEVER; Start 08/13/16 at 16:00 Morphine Sulfate (morphine) 2 mg Q4H PRN IV PAIN LEVEL 7-10 Last administered on 08/20/16 13:06; Admin Dose 2 MG; Start 08/13/16 at 16:00 Bisacodyl (Dulcolax) 5 mg DAILY PRN PO CONSTIPATION; Start 08/13/16 at 16:00 Miscellaneous Information 1 ea NOTE XX ; Start 08/13/16 at 17:30 Glucose (Glutose) 15 gm Q15M PRN PO DECREASED GLUCOSE; Start 08/13/16 at 17:30 Glucose (Glutose) 22.5 gm Q15M PRN PO DECREASED GLUCOSE; Start 08/13/16 at 17:30 Dextrose (D50w Syringe) 25 ml Q15M PRN IV DECREASED GLUCOSE; Start 08/13/16 at 17:30 Dextrose (D50w Syringe) 50 ml Q15M PRN IV DECREASED GLUCOSE; Start 08/13/16 at 17:30 Glucagon (Glucagen) 1 mg Q15M PRN IM DECREASED GLUCOSE; Start 08/13/16 at 17:30 Glucose (Glutose) 15 gm Q15M PRN BUCCAL DECREASED GLUCOSE; Start 08/13/16 at 17: 30 Mupirocin (Bactroban) 1 applic BID TOP Last administered on 08/21/16 08:51; Admin Dose 1 APPLIC; Start 08/15/16 at 13:00 Atorvastatin Calcium (Lipitor) 10 mg QHS PO Last administered on 08/20/16 21: 58; Admin Dose 10 MG; Start 08/15/16 at 21:00 Metoprolol Tartrate (Lopressor) 50 mg BID PO Last administered on 08/21/16 08: 51; Admin Dose 50 MG; Start 08/15/16 at 15:00 Diagnostic Test (Pha) (Accucheck) 1 ea 02 XX Last administered on 08/21/16 01: 17; Admin Dose 1 EA; Start 08/16/16 at 02:00 Methimazole (Tapazole) 20 mg DAILY PO Last administered on 08/21/16 10:13; Admin Dose 20 MG; Start 08/15/16 at 15:00 Insulin Glargine (Lantus) 22 unit HS SC Last administered on 08/20/16 22:09; Admin Dose 22 UNIT; Start 08/15/16 at 21:00 Linagliptin (Tradjenta) 5 mg DAILY PO Last administered on 08/21/16 08:50; Admin Dose 5 MG; Start 08/15/16 at 18:30 Rifampin 600 mg 600 mg DAILY PO Last administered on 08/21/16 10:13; Admin Dose 600 MG; Start 08/16/16 at 16:30 Ceftriaxone Sodium (Rocephin) 50 ml @ 100 mls/hr Q24H IVPB Last administered on 08/20/16 15:54; Admin Dose 100 MLS/HR; Start 08/16/16 at 15:30 IV Flush (NS 10 ml) 10 ml PRN PRN IV IV PROTOCOL; Start 08/16/16 at 15:30 Collagenase 1 applic 1 applic DAILY TOP Last administered on 08/21/16 08:51; Admin Dose 1 APPLIC; Start 08/17/16 at 09:00 Vancomycin HCl/ Sodium Chloride (Vancocin/NS) 250 ml @ 83.333 mls/ hr Q24H IVPB Last administered on 08/21/16 05:17; Admin Dose 83.333 MLS/HR; Start at 06:00 Pantoprazole (Protonix Tab) 40 mg DAILY@06 PO Last administered on 08/21/16 05 :17; Admin Dose 40 MG; Start 08/20/16 at 06:00 Miscellaneous Information (*Rx Drug Level Order Reminder*) 1 ONCE ONCE XX ; Start 08/22/16 at 05:00; Stop 08/22/16 at 05:01 ALEXANDRA CHAVEZ NP Aug 21, 2016 15:35
[2016-08-21] MEDS: CEFTRIAXONE 1 GM/50 ML (PMX) 50 ML IVPB SCH (17:39)
[2016-08-21] MEDS: ATORVASTATIN 10 MG TAB PO SCH (21:08)
[2016-08-21] MEDS: INSULIN GLARGINE [LANtus] 3 ML PEN SC SCH (23:10)
[2016-08-22] MEDS: ACCUCHECK XX SCH (02:00)
[2016-08-22 06:19] LABS: POTASSIUM 3.8 mmol/L (3.5-5.1)
[2016-08-22] MEDS: PANTOPRAZOLE (EC) 40 MG TAB PO SCH (06:19)
[2016-08-22 06:22] LABS: CALCIUM 6.8 mg/dl (8.4-10.2); CREATININE 0.58 mg/dl (0.44-1.00)
[2016-08-22 06:23] LABS: MAGNESIUM 1.6 mg/dl (1.7-2.5)
[2016-08-22 06:26] LABS: BASOPHILS % 0.6 % (0.0-2.0); EOSINOPHILS # 0.2 10^3/ul (0.0-0.5); EOSINOPHILS % 2.8 % (0.0-7.0); HEMATOCRIT 22.7 % (37.0-47.0); HEMOGLOBIN 7.5 g/dl (12.0-16.0); LYMPHOCYTES # 1.3 10^3/ul (0.8-2.9); LYMPHOCYTES % 18.6 % (15.0-51.0); MEAN CORPUSCULAR HEMOGLOBIN 28.9 pg (29.0-33.0); MEAN CORPUSCULAR HGB CONC 33.1 g/dl (32.0-37.0); MEAN CORPUSCULAR VOLUME 87.3 fl (82.0-101.0); MEAN PLATELET VOLUME 8.5 fl (7.4-10.4); MONOCYTE # 0.3 10^3/ul (0.3-0.9); MONOCYTES % 4.4 % (0.0-11.0); NEUTROPHIL # 5.2 10^3/ul (1.6-7.5); NEUTROPHILS % 73.6 % (39.0-77.0); PLATELET COUNT 140 10^3/UL (140-440); RED CELL DISTRIBUTION WIDTH 16.1 % (11.5-14.5); UNCORRECTED WBC 7.1 10^3/ul (4.8-10.8); WHITE BLOOD COUNT 7.1 10^3/ul (4.8-10.8)
[2016-08-22 06:40] LABS: CONDITION 1; LH ANALYZER COMMENTS 1
[2016-08-22] MEDS: VANCOMYCIN 1.25 GM in SOD CHLORIDE 0.9% 250 ML IVPB SCH (06:42)
[2016-08-22] MEDS: INSULIN ASPART [NOVOLOG] 3 ML PEN SC SCH ×7 (07:35→21:00)
[2016-08-22 07:47] VITALS: BP 117/66; RESP 16
[2016-08-22] MEDS: METHIMAZOLE 5 MG TAB PO SCH (08:45)
[2016-08-22] MEDS: METOPROLOL 50 MG TAB PO SCH ×2 (08:45→22:01)
[2016-08-22] MEDS: LINAGLIPTIN 5 MG TABLET PO SCH (08:45)
[2016-08-22] MEDS: RIFAMPIN 300 MG CAP PO SCH (08:45)
[2016-08-22] MEDS: COLLAGENASE 30 GM TUBE TOP SCH (08:45)
[2016-08-22] MEDS: MUPIROCIN 2% 22 GM OINT TOP SCH ×2 (08:45→22:09)
[2016-08-22] MEDS: DIPHENHYDRAMINE 50 MG INJ IV PRN ×2 (11:54→17:57)
--- NOTE | 2016-08-22 12:32 | CONS ---
Date/Time of Note Date/Time of Note DATE: 08/22/16 TIME: 12:30 Assessment/Plan Assessment/Plan Additional Assessment/Plan IMPRESSION: 1. Upper gastrointestinal bleeding, rule out peptic ulcer disease, rule out Faye-Johnson tear, rule out gastroesophageal reflux disease. 2. Hypertension. 3. Cerebrovascular accident. 4. Diabetes mellitus. 5. Hyperthyroidism. 6. Anemia.ht 22.7 now,no acute g.i. bleeding,rectal exam old black stool 7. Sepsis with positive blood culture.MRSA,on antibiotics 8. Urinary tract infection. 9. edema upper extremity Plan no further bleeding,further drop in ht.secondary to hydration continue antibiotics monitor H&H d/c Protonix drip,changed to PO Consultation Date/Type/Reason Admit Date/Time Aug 14, 2016 at 01:54 Initial Consult Date 08/15/16 Type of Consultation: ID Referring Provider: SÁNCHEZ WOMACK MD 24 HR Interval Summary Free Text/Dictation left shoulder pain Exam/Review of Systems Vital Signs Vitals Vital Signs Date Time Temp Pulse Resp B/P Pulse Ox O2 Delivery O2 Flow Rate FiO2 08/22/16 09:04 Nasal Cannula 2.0 08/22/16 07:47 97.5 106 16 117/66 98 Intake and Output 08/21/16 08/21/16 08/22/16 15:00 23:00 07:00 Intake Total 2602 ml 900 ml Output Total 1550 ml 1300 ml Balance 1052 ml -400 ml Exam Constitutional: alert, oriented, well developed Psych: nl mood/affect, no complaints Head: atraumatic, normocephalic Eyes: EOMI, PERRL, nl conjunctiva, nl lids, nl sclera ENMT: nl external ears & nose, nl lips & teeth, nl nasal mucosa & septum Neck: non-tender, supple Respiratory: clear to auscultation, normal air movement Cardiovascular: nl pulses, regular rate and rhythm Gastrointestinal: nl liver, spleen, non-tender, soft Musculoskeletal: nl extremities to inspection, nl gait and stance Extremities: normal pulses 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, nl mental status, nl speech, nl strength Skin: nl turgor, No rash or lesions Lymph: nl lymph nodes Results Result Diagram: 08/22/16 0435 08/22/16 0435 Results 24 hrs Laboratory Tests Test 08/21/16 17:27 08/21/16 18:02 08/21/16 21:05 08/21/16 23:08 Bedside Glucose 63 L 94 116 124 Test 08/22/16 04:35 08/22/16 08:02 08/22/16 08:35 08/22/16 08:56 Anion Gap 8 Basophils # 0.0 Basophils % 0.6 Blood Morphology Comment Blood Urea Nitrogen 10 Calcium Level 6.8 L Carbon Dioxide Level 24 Chloride Level 109 Creatinine 0.58 Eosinophils # 0.2 Eosinophils % 2.8 Glucose Level 66 #L Hematocrit 22.7 L Hemoglobin 7.5 L Lymphocytes # 1.3 Lymphocytes % 18.6 Magnesium Level 1.6 L Mean Corpuscular Hemoglobin 28.9 L Mean Corpuscular Hemoglobin Concent 33.1 Mean Corpuscular Volume 87.3 Mean Platelet Volume 8.5 Monocytes # 0.3 Monocytes % 4.4 Neutrophils # 5.2 Neutrophils % 73.6 Nucleated Red Blood Cells # 0.0 Nucleated Red Blood Cells % 0.0 Platelet Count 140 Potassium Level 3.8 Red Blood Count 2.60 L Red Cell Distribution Width 16.1 H Sodium Level 137 Vancomycin Level Trough 14.9 White Blood Count 7.1 Bedside Glucose 63 L 80 97 Test 08/22/16 11:28 Bedside Glucose 91 Medications Medications Current Medications Sodium Chloride (NS) 1,000 ml @ 75 mls/hr [id number] IV Last administered on 08/21 21:27; Admin Dose 75 MLS/HR; Start 08/13/16 at 15:31 Lorazepam (Ativan) 0.5 mg Q6H PRN IV ANXIETY; Start 08/13/16 at 16:00 Ondansetron HCl (Zofran Inj) 4 mg Q6H PRN IV NAUSEA AND/OR VOMITING; Start 08/13 at 16:00 Nitroglycerin (Nitroglycerin (Sl Tab) 0.4 Mg) 1 tab Q5M PRN SL CHEST PAIN Last administered on 08/21/16 23:04; Admin Dose 1 TAB; Start 08/13/16 at 16:00 Acetaminophen (Tylenol Supp) 650 mg Q6H PRN [place] PAIN LEVEL 1-3 OR FEVER; Start 08/13/16 at 16:00 Morphine Sulfate (morphine) 2 mg Q4H PRN IV PAIN LEVEL 7-10 Last administered on 08/20/16 13:06; Admin Dose 2 MG; Start 08/13/16 at 16:00 Bisacodyl (Dulcolax) 5 mg DAILY PRN PO CONSTIPATION; Start 08/13/16 at 16:00 Miscellaneous Information 1 ea NOTE XX ; Start 08/13/16 at 17:30 Glucose (Glutose) 15 gm Q15M PRN PO DECREASED GLUCOSE; Start 08/13/16 at 17:30 Glucose (Glutose) 22.5 gm Q15M PRN PO DECREASED GLUCOSE; Start 08/13/16 at 17:30 Dextrose (D50w Syringe) 25 ml Q15M PRN IV DECREASED GLUCOSE; Start 08/13/16 at 17:30 Dextrose (D50w Syringe) 50 ml Q15M PRN IV DECREASED GLUCOSE; Start 08/13/16 at 17:30 Glucagon (Glucagen) 1 mg Q15M PRN IM DECREASED GLUCOSE; Start 08/13/16 at 17:30 Glucose (Glutose) 15 gm Q15M PRN BUCCAL DECREASED GLUCOSE; Start 08/13/16 at 17: 30 Mupirocin (Bactroban) 1 applic BID TOP Last administered on 08/22/16 08:45; Admin Dose 1 APPLIC; Start 08/15/16 at 13:00 Atorvastatin Calcium (Lipitor) 10 mg QHS PO Last administered on 08/21/16 21: 08; Admin Dose 10 MG; Start 08/15/16 at 21:00 Metoprolol Tartrate (Lopressor) 50 mg BID PO Last administered on 08/22/16 08: 45; Admin Dose 50 MG; Start 08/15/16 at 15:00 Diagnostic Test (Pha) (Accucheck) 1 ea 02 XX Last administered on 08/21/16 01: 17; Admin Dose 1 EA; Start 08/16/16 at 02:00 Methimazole (Tapazole) 20 mg DAILY PO Last administered on 08/22/16 08:45; Admin Dose 20 MG; Start 08/15/16 at 15:00 Insulin Glargine (Lantus) 22 unit HS SC Last administered on 08/21/16 23:10; Admin Dose 22 UNIT; Start 08/15/16 at 21:00 Linagliptin (Tradjenta) 5 mg DAILY PO Last administered on 1/17/17at 08:45; Admin Dose 5 MG; Start 08/15/16 at 18:30 Rifampin 600 mg 600 mg DAILY PO Last administered on 08/22/16 08:45; Admin Dose 600 MG; Start 08/16/16 at 16:30 Ceftriaxone Sodium (Rocephin) 50 ml @ 100 mls/hr Q24H IVPB Last administered on 08/21/16 17:39; Admin Dose 100 MLS/HR; Start 08/16/16 at 15:30 IV Flush (NS 10 ml) 10 ml PRN PRN IV IV PROTOCOL; Start 08/16/16 at 15:30 Collagenase 1 applic 1 applic DAILY TOP Last administered on 08/22/16 08:45; Admin Dose 1 APPLIC; Start 08/17/16 at 09:00 Vancomycin HCl/ Sodium Chloride (Vancocin/NS) 250 ml @ 83.333 mls/ hr Q24H IVPB Last administered on 08/22/16 06:42; Admin Dose 83.333 MLS/HR; Start at 06:00 Pantoprazole (Protonix Tab) 40 mg DAILY@06 PO Last administered on 08/22/16 06 :19; Admin Dose 40 MG; Start 08/20/16 at 06:00 Diphenhydramine HCl (Benadryl) 25 mg Q6H PRN IV ITCHING Last administered on 11:54; Admin Dose 25 MG; Start 08/22/16 at 12:00 CHANCE QUEZADA MD Aug 22, 2016 12:32
[2016-08-22] MEDS: SOD CHLORIDE 0.9% 1,000 ML IV SCH (13:20)
--- NOTE | 2016-08-22 13:55 | CONS ---
Date/Time of Note Date/Time of Note DATE: 08/22/16 TIME: 13:53 Consult Date/Type/Reason Admit Date/Time Aug 14, 2016 at 01:54 Initial Consult Date 08/15/16 Type of Consultation: ID Ordering Provider: SÁNCHEZ WOMACK MD Subjective awake, lying comfortably in bed, no fevers Objective Vital Signs Date Time Temp Pulse Resp B/P Pulse Ox O2 Delivery O2 Flow Rate FiO2 08/22/16 09:04 Nasal Cannula 2.0 08/22/16 07:47 97.5 106 16 117/66 98 Intake and Output 08/21/16 08/21/16 08/22/16 15:00 23:00 07:00 Intake Total 2602 ml 900 ml Output Total 1550 ml 1300 ml Balance 1052 ml -400 ml Results/Medications Result Diagram: 08/22/16 0435 08/22/16 0435 Results 24 hrs Laboratory Tests Test 08/21/16 17:27 08/21/16 18:02 08/21/16 21:05 08/21/16 23:08 Bedside Glucose 63 L 94 116 124 Test 08/22/16 04:35 08/22/16 08:02 08/22/16 08:35 08/22/16 08:56 Anion Gap 8 Basophils # 0.0 Basophils % 0.6 Blood Morphology Comment Blood Urea Nitrogen 10 Calcium Level 6.8 L Carbon Dioxide Level 24 Chloride Level 109 Creatinine 0.58 Eosinophils # 0.2 Eosinophils % 2.8 Glucose Level 66 #L Hematocrit 22.7 L Hemoglobin 7.5 L Lymphocytes # 1.3 Lymphocytes % 18.6 Magnesium Level 1.6 L Mean Corpuscular Hemoglobin 28.9 L Mean Corpuscular Hemoglobin Concent 33.1 Mean Corpuscular Volume 87.3 Mean Platelet Volume 8.5 Monocytes # 0.3 Monocytes % 4.4 Neutrophils # 5.2 Neutrophils % 73.6 Nucleated Red Blood Cells # 0.0 Nucleated Red Blood Cells % 0.0 Platelet Count 140 Potassium Level 3.8 Red Blood Count 2.60 L Red Cell Distribution Width 16.1 H Sodium Level 137 Vancomycin Level Trough 14.9 White Blood Count 7.1 Bedside Glucose 63 L 80 97 Test 08/22/16 11:28 Bedside Glucose 91 Medications Current Medications Sodium Chloride (NS) 1,000 ml @ 75 mls/hr [id number] IV Last administered on 08/22 13:20; Admin Dose 75 MLS/HR; Start 08/13/16 at 15:31 Lorazepam (Ativan) 0.5 mg Q6H PRN IV ANXIETY; Start 08/13/16 at 16:00 Ondansetron HCl (Zofran Inj) 4 mg Q6H PRN IV NAUSEA AND/OR VOMITING; Start 08/13 at 16:00 Nitroglycerin (Nitroglycerin (Sl Tab) 0.4 Mg) 1 tab Q5M PRN SL CHEST PAIN Last administered on 08/21/16 23:04; Admin Dose 1 TAB; Start 08/13/16 at 16:00 Acetaminophen (Tylenol Supp) 650 mg Q6H PRN [place] PAIN LEVEL 1-3 OR FEVER; Start 08/13/16 at 16:00 Morphine Sulfate (morphine) 2 mg Q4H PRN IV PAIN LEVEL 7-10 Last administered on 08/20/16 13:06; Admin Dose 2 MG; Start 08/13/16 at 16:00 Bisacodyl (Dulcolax) 5 mg DAILY PRN PO CONSTIPATION; Start 08/13/16 at 16:00 Miscellaneous Information 1 ea NOTE XX ; Start 08/13/16 at 17:30 Glucose (Glutose) 15 gm Q15M PRN PO DECREASED GLUCOSE; Start 08/13/16 at 17:30 Glucose (Glutose) 22.5 gm Q15M PRN PO DECREASED GLUCOSE; Start 08/13/16 at 17:30 Dextrose (D50w Syringe) 25 ml Q15M PRN IV DECREASED GLUCOSE; Start 08/13/16 at 17:30 Dextrose (D50w Syringe) 50 ml Q15M PRN IV DECREASED GLUCOSE; Start 08/13/16 at 17:30 Glucagon (Glucagen) 1 mg Q15M PRN IM DECREASED GLUCOSE; Start 08/13/16 at 17:30 Glucose (Glutose) 15 gm Q15M PRN BUCCAL DECREASED GLUCOSE; Start 08/13/16 at 17: 30 Mupirocin (Bactroban) 1 applic BID TOP Last administered on 08/22/16 08:45; Admin Dose 1 APPLIC; Start 08/15/16 at 13:00 Atorvastatin Calcium (Lipitor) 10 mg QHS PO Last administered on 08/21/16 21: 08; Admin Dose 10 MG; Start 08/15/16 at 21:00 Metoprolol Tartrate (Lopressor) 50 mg BID PO Last administered on 08/22/16 08: 45; Admin Dose 50 MG; Start 08/15/16 at 15:00 Diagnostic Test (Pha) (Accucheck) 1 ea 02 XX Last administered on 08/21/16 01: 17; Admin Dose 1 EA; Start 08/16/16 at 02:00 Methimazole (Tapazole) 20 mg DAILY PO Last administered on 08/22/16 08:45; Admin Dose 20 MG; Start 08/15/16 at 15:00 Insulin Glargine (Lantus) 22 unit HS SC Last administered on 08/21/16 23:10; Admin Dose 22 UNIT; Start 08/15/16 at 21:00 Linagliptin (Tradjenta) 5 mg DAILY PO Last administered on 08/22/16 08:45; Admin Dose 5 MG; Start 08/15/16 at 18:30 Rifampin 600 mg 600 mg DAILY PO Last administered on 08/22/16 08:45; Admin Dose 600 MG; Start 08/16/16 at 16:30 Ceftriaxone Sodium (Rocephin) 50 ml @ 100 mls/hr Q24H IVPB Last administered on 08/21/16 17:39; Admin Dose 100 MLS/HR; Start 08/16/16 at 15:30 IV Flush (NS 10 ml) 10 ml PRN PRN IV IV PROTOCOL; Start 08/16/16 at 15:30 Collagenase 1 applic 1 applic DAILY TOP Last administered on 08/22/16 08:45; Admin Dose 1 APPLIC; Start 08/17/16 at 09:00 Vancomycin HCl/ Sodium Chloride (Vancocin/NS) 250 ml @ 83.333 mls/ hr Q24H IVPB Last administered on 08/22/16 06:42; Admin Dose 83.333 MLS/HR; Start at 06:00 Pantoprazole (Protonix Tab) 40 mg DAILY@06 PO Last administered on 08/22/16 06 :19; Admin Dose 40 MG; Start 08/20/16 at 06:00 Diphenhydramine HCl (Benadryl) 25 mg Q6H PRN IV ITCHING Last administered on 1/ 17/17at 11:54; Admin Dose 25 MG; Start 08/22/16 at 12:00 Assessment/Plan Chief Complaint/Hosp Course MICROBIOLOGY: Blood culture growing MRSA. Urine culture growing E. coli and MRSA. Nares swab came back positive for MRSA. Wound culture growing MRSA/ GNR ANTIMICROBIALS: 1. Vancomycin. 2. Rifampin 3. Rocephin INDWELLINGS: Lundy catheter. PHYSICAL EXAMINATION: GENERAL: Fragile, elderly woman who is lying comfortably in bed. Patient is awake and follows commands. HEENT: Head atraumatic, normocephalic. Sclerae anicteric. Buccal mucosa dry. NECK: Supple, trachea midline. CHEST: Rise symmetrical. Breath sounds clear, diminished to bases. HEART: S1, S2. ABDOMEN: Soft. Bowel tones present. EXTREMITIES: Left upper extremity edema. The patient also has anasarca. ASSESSMENT: 1. Sepsis. 2. Methicillin-resistant Staphylococcus aureus bacteremia. 3. Polymicrobial urinary tract infection with urine culture growing MRSA and E. coli. 4. Bilateral heel cellulitis with chronic wounds==> s/p debridement 5. Methicillin-resistant Staphylococcus aureus nares colonization. 6. Anemia, status post hematemesis and EGD that revealed Faye-Johnson tear and chronic gastritis. 7. History of atrial fibrillation and congestive heart failure. 8. History of cerebrovascular accident. 9. Diabetes. PLAN: The patient remains stable. Will repeat bld cx . Continue on current abx. Continue anti-aspiration measures. Podiatry rec-s [facility] staff Problems: DEMAR VILLALOBOS NP Aug 22, 2016 13:55
--- NOTE | 2016-08-22 14:49 | PN ---
Date/Time of Note Date/Time of Note DATE: 08/22/16 TIME: 14:47 Assessment/Plan VTE Prophylaxis VTE Prophylaxis Intervention: SCD's Assessment/Plan Chief Complaint/Hosp Course 1. Upper gastrointestinal bleeding. The patient was evaluated by gastroenterology. Esophagogastroduodenoscopy revealed a Faye-Johnson tear, chronic gastritis, and nodular duodenitis. Continue proton pump inhibitors. 2. Atrial fibrillation with rapid ventricular response. Currently, the rate is controlled. No anticoagulation because of underlying gastrointestinal bleed. Cardiology following. 3. Sepsis with underlying MRSA bacteremia, infected pressure ulcers, and urinary tract infection. Continue antibiotics. Infectious disease is on the case. -Blood cultures to be repeated today, will need to continue vancomycin at the continue long-term 4. Infected right heel pressure ulcer. Seen and evaluated by podiatry, s/p local debridement. 5. Essential hypertension. Continue antihypertensives. 6. Peripheral vascular disease. Monitor for acute changes. Anticoagulation on hold because of current gastrointestinal bleed. 7. Dyslipidemia. Continue statins. Fasting lipid panel showing low HDL and low total cholesterol. 8. Type 2 diabetes mellitus. Hemoglobin A1c 9.8. Continue sliding scale insulin. 9. Left upper extremity edema. Left upper extremity venous Doppler study negative for any deep venous thrombosis. Continue elevation of left upper extremity. 10. Multiple pressure ulcers. Continue local wound care. Wound care consult. 11. Hyperthyroidism. The patient was started on methimazole. 12. MRSA colonization of the nares. Continue Bactroban. 13. Fluid, electrolytes and nutrition. Carbohydrate controlled, low- cholesterol diet. 14. DVT prophylaxis with serial sequential compression devices. No anticoagulation because of underlying GI bleed. 15. Gastrointestinal prophylaxis with proton pump inhibitors. Problems: Subjective 24 Hr Interval Summary Constitutional: no complaints Exam/Review of Systems Vital Signs Vitals Vital Signs Date Time Temp Pulse Resp B/P Pulse Ox O2 Delivery O2 Flow Rate FiO2 08/22/16 09:04 Nasal Cannula 2.0 08/22/16 07:47 97.5 106 16 117/66 98 Intake and Output 08/21/16 08/21/16 08/22/16 15:00 23:00 07:00 Intake Total 2602 ml 900 ml Output Total 1550 ml 1300 ml Balance 1052 ml -400 ml Exam Constitutional: alert Respiratory: clear to auscultation Cardiovascular: regular rate and rhythm Gastrointestinal: soft, No distended Musculoskeletal: No nl extremities to inspection Results Result Diagram: 08/22/16 0435 08/22/16 0435 Results 24 hrs Laboratory Tests Test 08/21/16 17:27 08/21/16 18:02 08/21/16 21:05 08/21/16 23:08 Bedside Glucose 63 L 94 116 124 Test 08/22/16 04:35 08/22/16 08:02 08/22/16 08:35 08/22/16 08:56 Anion Gap 8 Basophils # 0.0 Basophils % 0.6 Blood Morphology Comment Blood Urea Nitrogen 10 Calcium Level 6.8 L Carbon Dioxide Level 24 Chloride Level 109 Creatinine 0.58 Eosinophils # 0.2 Eosinophils % 2.8 Glucose Level 66 #L Hematocrit 22.7 L Hemoglobin 7.5 L Lymphocytes # 1.3 Lymphocytes % 18.6 Magnesium Level 1.6 L Mean Corpuscular Hemoglobin 28.9 L Mean Corpuscular Hemoglobin Concent 33.1 Mean Corpuscular Volume 87.3 Mean Platelet Volume 8.5 Monocytes # 0.3 Monocytes % 4.4 Neutrophils # 5.2 Neutrophils % 73.6 Nucleated Red Blood Cells # 0.0 Nucleated Red Blood Cells % 0.0 Platelet Count 140 Potassium Level 3.8 Red Blood Count 2.60 L Red Cell Distribution Width 16.1 H Sodium Level 137 Vancomycin Level Trough 14.9 White Blood Count 7.1 Bedside Glucose 63 L 80 97 Test 08/22/16 11:28 Bedside Glucose 91 Medications Medications Current Medications Sodium Chloride (NS) 1,000 ml @ 75 mls/hr [id number] IV Last administered on 08/22 13:20; Admin Dose 75 MLS/HR; Start 08/13/16 at 15:31 Lorazepam (Ativan) 0.5 mg Q6H PRN IV ANXIETY; Start 08/13/16 at 16:00 Ondansetron HCl (Zofran Inj) 4 mg Q6H PRN IV NAUSEA AND/OR VOMITING; Start 08/13 at 16:00 Nitroglycerin (Nitroglycerin (Sl Tab) 0.4 Mg) 1 tab Q5M PRN SL CHEST PAIN Last administered on 08/21/16 23:04; Admin Dose 1 TAB; Start 08/13/16 at 16:00 Acetaminophen (Tylenol Supp) 650 mg Q6H PRN [place] PAIN LEVEL 1-3 OR FEVER; Start 1/8/17 at 16:00 Morphine Sulfate (morphine) 2 mg Q4H PRN IV PAIN LEVEL 7-10 Last administered on 08/20/16 13:06; Admin Dose 2 MG; Start 08/13/16 at 16:00 Bisacodyl (Dulcolax) 5 mg DAILY PRN PO CONSTIPATION; Start 08/13/16 at 16:00 Miscellaneous Information 1 ea NOTE XX ; Start 08/13/16 at 17:30 Glucose (Glutose) 15 gm Q15M PRN PO DECREASED GLUCOSE; Start 08/13/16 at 17:30 Glucose (Glutose) 22.5 gm Q15M PRN PO DECREASED GLUCOSE; Start 08/13/16 at 17:30 Dextrose (D50w Syringe) 25 ml Q15M PRN IV DECREASED GLUCOSE; Start 08/13/16 at 17:30 Dextrose (D50w Syringe) 50 ml Q15M PRN IV DECREASED GLUCOSE; Start 08/13/16 at 17:30 Glucagon (Glucagen) 1 mg Q15M PRN IM DECREASED GLUCOSE; Start 08/13/16 at 17:30 Glucose (Glutose) 15 gm Q15M PRN BUCCAL DECREASED GLUCOSE; Start 08/13/16 at 17: 30 Mupirocin (Bactroban) 1 applic BID TOP Last administered on 08/22/16 08:45; Admin Dose 1 APPLIC; Start 08/15/16 at 13:00 Atorvastatin Calcium (Lipitor) 10 mg QHS PO Last administered on 08/21/16 21: 08; Admin Dose 10 MG; Start 08/15/16 at 21:00 Metoprolol Tartrate (Lopressor) 50 mg BID PO Last administered on 08/22/16 08: 45; Admin Dose 50 MG; Start 08/15/16 at 15:00 Diagnostic Test (Pha) (Accucheck) 1 ea 02 XX Last administered on 08/21/16 01: 17; Admin Dose 1 EA; Start 08/16/16 at 02:00 Methimazole (Tapazole) 20 mg DAILY PO Last administered on 08/22/16 08:45; Admin Dose 20 MG; Start 08/15/16 at 15:00 Insulin Glargine (Lantus) 22 unit HS SC Last administered on 08/21/16 23:10; Admin Dose 22 UNIT; Start 08/15/16 at 21:00 Linagliptin (Tradjenta) 5 mg DAILY PO Last administered on 08/22/16 08:45; Admin Dose 5 MG; Start 08/15/16 at 18:30 Rifampin 600 mg 600 mg DAILY PO Last administered on 08/22/16 08:45; Admin Dose 600 MG; Start 08/16/16 at 16:30 Ceftriaxone Sodium (Rocephin) 50 ml @ 100 mls/hr Q24H IVPB Last administered on 08/21/16 17:39; Admin Dose 100 MLS/HR; Start 08/16/16 at 15:30 IV Flush (NS 10 ml) 10 ml PRN PRN IV IV PROTOCOL; Start 08/16/16 at 15:30 Collagenase 1 applic 1 applic DAILY TOP Last administered on 08/22/16 08:45; Admin Dose 1 APPLIC; Start 08/17/16 at 09:00 Vancomycin HCl/ Sodium Chloride (Vancocin/NS) 250 ml @ 83.333 mls/ hr Q24H IVPB Last administered on 08/22/16 06:42; Admin Dose 83.333 MLS/HR; Start at 06:00 Pantoprazole (Protonix Tab) 40 mg DAILY@06 PO Last administered on 08/22/16 06 :19; Admin Dose 40 MG; Start 08/20/16 at 06:00 Diphenhydramine HCl (Benadryl) 25 mg Q6H PRN IV ITCHING Last administered on 11:54; Admin Dose 25 MG; Start 08/22/16 at 12:00 MEG PETERSON Aug 22, 2016 14:49
[2016-08-22] MEDS ORDERED: MAGNESIUM SULFATE 2 GM/50 ML 50 ML IVPB ONE ×2 (15:00→15:30)
[2016-08-22] MEDS: CEFTRIAXONE 1 GM/50 ML (PMX) 50 ML IVPB SCH (15:17)
--- NOTE | 2016-08-22 15:26 | CONS ---
Date/Time of Note Date/Time of Note DATE: 08/22/16 TIME: 15:23 Assessment/Plan Assessment/Plan Additional Assessment/Plan Sepsis with positive blood cultures Atrial fibrillation with rapid ventricular rates, improved Acute blood loss anemia Preserved ejection fraction Hyperthyroidism History of congestive heart failure History of hypertension History of CVA GI bleed Diabetes -Heart rate trend overall appears stable. Continue beta sha as blood pressure permits. No anticoagulation given recent GI bleed and anemia. - Consultation Date/Type/Reason Admit Date/Time Aug 14, 2016 at 01:54 Initial Consult Date 08/15/16 Type of Consultation: cv Referring Provider: SÁNCHEZ WOMACK MD 24 HR Interval Summary Free Text/Dictation no cp, palpitations, sob Exam/Review of Systems Vital Signs Vitals Vital Signs Date Time Temp Pulse Resp B/P Pulse Ox O2 Delivery O2 Flow Rate FiO2 08/22/16 09:04 Nasal Cannula 2.0 08/22/16 07:47 97.5 106 16 117/66 98 Intake and Output 08/21/16 08/21/16 08/22/16 15:00 23:00 07:00 Intake Total 2602 ml 900 ml Output Total 1550 ml 1300 ml Balance 1052 ml -400 ml Exam nad, follows commands Constitutional: alert Head: normocephalic Neck: supple Respiratory: other (course breath sounds bilaterally, no wheezing) Cardiovascular: irregular rhythm, other (s1s2) Gastrointestinal: bowel sounds, non-tender, soft Extremities: edema Results Result Diagram: 08/22/16 0435 08/22/16 0435 Results 24 hrs Laboratory Tests Test 08/21/16 17:27 08/21/16 18:02 08/21/16 21:05 08/21/16 23:08 Bedside Glucose 63 L 94 116 124 Test 08/22/16 04:35 08/22/16 08:02 08/22/16 08:35 08/22/16 08:56 Anion Gap 8 Basophils # 0.0 Basophils % 0.6 Blood Morphology Comment Blood Urea Nitrogen 10 Calcium Level 6.8 L Carbon Dioxide Level 24 Chloride Level 109 Creatinine 0.58 Eosinophils # 0.2 Eosinophils % 2.8 Glucose Level 66 #L Hematocrit 22.7 L Hemoglobin 7.5 L Lymphocytes # 1.3 Lymphocytes % 18.6 Magnesium Level 1.6 L Mean Corpuscular Hemoglobin 28.9 L Mean Corpuscular Hemoglobin Concent 33.1 Mean Corpuscular Volume 87.3 Mean Platelet Volume 8.5 Monocytes # 0.3 Monocytes % 4.4 Neutrophils # 5.2 Neutrophils % 73.6 Nucleated Red Blood Cells # 0.0 Nucleated Red Blood Cells % 0.0 Platelet Count 140 Potassium Level 3.8 Red Blood Count 2.60 L Red Cell Distribution Width 16.1 H Sodium Level 137 Vancomycin Level Trough 14.9 White Blood Count 7.1 Bedside Glucose 63 L 80 97 Test 08/22/16 11:28 Bedside Glucose 91 Medications Medications Current Medications Sodium Chloride (NS) 1,000 ml @ 75 mls/hr [id number] IV Last administered on 08/22 13:20; Admin Dose 75 MLS/HR; Start 08/13/16 at 15:31 Lorazepam (Ativan) 0.5 mg Q6H PRN IV ANXIETY; Start 08/13/16 at 16:00 Ondansetron HCl (Zofran Inj) 4 mg Q6H PRN IV NAUSEA AND/OR VOMITING; Start 08/13 at 16:00 Nitroglycerin (Nitroglycerin (Sl Tab) 0.4 Mg) 1 tab Q5M PRN SL CHEST PAIN Last administered on 08/21/16 23:04; Admin Dose 1 TAB; Start 08/13/16 at 16:00 Acetaminophen (Tylenol Supp) 650 mg Q6H PRN [place] PAIN LEVEL 1-3 OR FEVER; Start 08/13/16 at 16:00 Morphine Sulfate (morphine) 2 mg Q4H PRN IV PAIN LEVEL 7-10 Last administered on 08/20/16 13:06; Admin Dose 2 MG; Start 08/13/16 at 16:00 Bisacodyl (Dulcolax) 5 mg DAILY PRN PO CONSTIPATION; Start 08/13/16 at 16:00 Miscellaneous Information 1 ea NOTE XX ; Start 08/13/16 at 17:30 Glucose (Glutose) 15 gm Q15M PRN PO DECREASED GLUCOSE; Start 08/13/16 at 17:30 Glucose (Glutose) 22.5 gm Q15M PRN PO DECREASED GLUCOSE; Start 08/13/16 at 17:30 Dextrose (D50w Syringe) 25 ml Q15M PRN IV DECREASED GLUCOSE; Start 08/13/16 at 17:30 Dextrose (D50w Syringe) 50 ml Q15M PRN IV DECREASED GLUCOSE; Start 08/13/16 at 17:30 Glucagon (Glucagen) 1 mg Q15M PRN IM DECREASED GLUCOSE; Start 08/13/16 at 17:30 Glucose (Glutose) 15 gm Q15M PRN BUCCAL DECREASED GLUCOSE; Start 08/13/16 at 17: 30 Mupirocin (Bactroban) 1 applic BID TOP Last administered on 08/22/16 08:45; Admin Dose 1 APPLIC; Start 08/15/16 at 13:00 Atorvastatin Calcium (Lipitor) 10 mg QHS PO Last administered on 08/21/16 21: 08; Admin Dose 10 MG; Start 08/15/16 at 21:00 Metoprolol Tartrate (Lopressor) 50 mg BID PO Last administered on 08/22/16 08: 45; Admin Dose 50 MG; Start 08/15/16 at 15:00 Diagnostic Test (Pha) (Accucheck) 1 ea 02 XX Last administered on 08/21/16 01: 17; Admin Dose 1 EA; Start 08/16/16 at 02:00 Methimazole (Tapazole) 20 mg DAILY PO Last administered on 08/22/16 08:45; Admin Dose 20 MG; Start 08/15/16 at 15:00 Insulin Glargine (Lantus) 22 unit HS SC Last administered on 08/21/16 23:10; Admin Dose 22 UNIT; Start 08/15/16 at 21:00 Linagliptin (Tradjenta) 5 mg DAILY PO Last administered on 08/22/16 08:45; Admin Dose 5 MG; Start 08/15/16 at 18:30 Rifampin 600 mg 600 mg DAILY PO Last administered on 08/22/16 08:45; Admin Dose 600 MG; Start 08/16/16 at 16:30 Ceftriaxone Sodium (Rocephin) 50 ml @ 100 mls/hr Q24H IVPB Last administered on 08/22/16 15:17; Admin Dose 100 MLS/HR; Start 08/16/16 at 15:30 IV Flush (NS 10 ml) 10 ml PRN PRN IV IV PROTOCOL; Start 08/16/16 at 15:30 Collagenase 1 applic 1 applic DAILY TOP Last administered on 08/22/16 08:45; Admin Dose 1 APPLIC; Start 08/17/16 at 09:00 Vancomycin HCl/ Sodium Chloride (Vancocin/NS) 250 ml @ 83.333 mls/ hr Q24H IVPB Last administered on 08/22/16 06:42; Admin Dose 83.333 MLS/HR; Start at 06:00 Pantoprazole (Protonix Tab) 40 mg DAILY@06 PO Last administered on 08/22/16 06 :19; Admin Dose 40 MG; Start 08/20/16 at 06:00 Diphenhydramine HCl 25 mg 25 mg Q6H PRN IV ITCHING Last administered on 11:54; Admin Dose 25 MG; Start 08/22/16 at 12:00 Magnesium Sulfate (Magnesium Sulfate 2 Gm/50 ml) 50 ml @ 25 mls/hr ONCE ONCE IVPB ; Start 08/22/16 at 15:00; Stop 08/22/16 at 16:59 Shawn Lozada DO Aug 22, 2016 15:26
[2016-08-22] MEDS: BISACODYL (EC) 5 MG TAB PO PRN (17:57)
[2016-08-22 20:52] VITALS: BP 121/58; RESP 16
[2016-08-22] MEDS: INSULIN GLARGINE [LANtus] 3 ML PEN SC SCH (22:00)
[2016-08-22] MEDS: ATORVASTATIN 10 MG TAB PO SCH (22:01)
[2016-08-23] MEDS: ACCUCHECK XX SCH (02:00)
[2016-08-23] MEDS: SOD CHLORIDE 0.9% 1,000 ML IV SCH ×3 (02:11→23:55)
[2016-08-23] MEDS: DIPHENHYDRAMINE 50 MG INJ IV PRN ×2 (03:38→11:52)
[2016-08-23 05:34] LABS: BASOPHIL # 0.1 10^3/ul (0.0-0.1); BASOPHILS % 0.8 % (0.0-2.0); EOSINOPHILS # 0.2 10^3/ul (0.0-0.5); EOSINOPHILS % 2.6 % (0.0-7.0); HEMATOCRIT 24.4 % (37.0-47.0); LYMPHOCYTES # 1.8 10^3/ul (0.8-2.9); LYMPHOCYTES % 24.6 % (15.0-51.0); MEAN CORPUSCULAR HEMOGLOBIN 28.8 pg (29.0-33.0); MEAN CORPUSCULAR HGB CONC 32.9 g/dl (32.0-37.0); MEAN CORPUSCULAR VOLUME 87.4 fl (82.0-101.0); MEAN PLATELET VOLUME 8.5 fl (7.4-10.4); MONOCYTE # 0.3 10^3/ul (0.3-0.9); MONOCYTES % 3.8 % (0.0-11.0); NEUTROPHIL # 5.1 10^3/ul (1.6-7.5); NEUTROPHILS % 68.2 % (39.0-77.0); PLATELET COUNT 161 10^3/UL (140-440); RED BLOOD COUNT 2.79 10^6/ul (4.20-5.40); RED CELL DISTRIBUTION WIDTH 16.2 % (11.5-14.5); UNCORRECTED WBC 7.4 10^3/ul (4.8-10.8); WHITE BLOOD COUNT 7.4 10^3/ul (4.8-10.8)
[2016-08-23 05:48] LABS: POTASSIUM 3.6 mmol/L (3.5-5.1)
[2016-08-23 05:51] LABS: CREATININE 0.59 mg/dl (0.44-1.00)
[2016-08-23 05:52] LABS: CALCIUM 7.2 mg/dl (8.4-10.2); MAGNESIUM 1.7 mg/dl (1.7-2.5)
[2016-08-23 06:02] LABS: CONDITION 1; LH ANALYZER COMMENTS 1
[2016-08-23] MEDS: VANCOMYCIN 1.25 GM in SOD CHLORIDE 0.9% 250 ML IVPB SCH (06:13)
[2016-08-23] MEDS: PANTOPRAZOLE (EC) 40 MG TAB PO SCH (06:42)
[2016-08-23] MEDS: INSULIN ASPART [NOVOLOG] 3 ML PEN SC SCH ×5 (07:35→20:46)
[2016-08-23 08:28] VITALS: BP 105/55; RESP 18
[2016-08-23] MEDS: METHIMAZOLE 5 MG TAB PO SCH (08:36)
[2016-08-23] MEDS: RIFAMPIN 300 MG CAP PO SCH (08:37)
[2016-08-23] MEDS: METOPROLOL 50 MG TAB PO SCH ×2 (08:37→20:45)
[2016-08-23] MEDS: LINAGLIPTIN 5 MG TABLET PO SCH (08:40)
[2016-08-23] MEDS: MUPIROCIN 2% 22 GM OINT TOP SCH ×2 (08:41→20:46)
[2016-08-23] MEDS: COLLAGENASE 30 GM TUBE TOP SCH (08:41)
--- NOTE | 2016-08-23 14:24 | CONS ---
Date/Time of Note Date/Time of Note DATE: 08/23/16 TIME: 14:22 Consult Date/Type/Reason Admit Date/Time Aug 14, 2016 at 01:54 Initial Consult Date 08/15/16 Type of Consultation: id Ordering Provider: SÁNCHEZ WOMACK MD Subjective alert, eating lunch, c/o itching, no rash, no fevers, nad Objective Vital Signs Date Time Temp Pulse Resp B/P Pulse Ox O2 Delivery O2 Flow Rate FiO2 08/23/16 08:28 86 18 105/55 97 08/23/16 08:00 Nasal Cannula 2.0 08/22/16 20:52 97.9 Intake and Output 08/22/16 08/22/16 08/23/16 15:00 23:00 07:00 Intake Total 650 ml 820 ml 625 ml Output Total 1500 ml Balance 650 ml -680 ml 625 ml Results/Medications Result Diagram: 08/23/16 0425 08/23/16 0425 Results 24 hrs Laboratory Tests Test 08/22/16 17:11 08/22/16 21:56 08/23/16 04:25 08/23/16 06:19 Bedside Glucose 88 131 234 H Anion Gap 12 Basophils # 0.1 Basophils % 0.8 Blood Morphology Comment Blood Urea Nitrogen 10 Calcium Level 7.2 L Carbon Dioxide Level 23 Chloride Level 109 Creatinine 0.59 Eosinophils # 0.2 Eosinophils % 2.6 Glucose Level 34 #*L Hematocrit 24.4 L Hemoglobin 8.0 L Lymphocytes # 1.8 Lymphocytes % 24.6 Magnesium Level 1.7 Mean Corpuscular Hemoglobin 28.8 L Mean Corpuscular Hemoglobin Concent 32.9 Mean Corpuscular Volume 87.4 Mean Platelet Volume 8.5 Monocytes # 0.3 Monocytes % 3.8 Neutrophils # 5.1 Neutrophils % 68.2 Nucleated Red Blood Cells # 0.0 Nucleated Red Blood Cells % 0.0 Platelet Count 161 Potassium Level 3.6 Red Blood Count 2.79 L Red Cell Distribution Width 16.2 H Sodium Level 140 White Blood Count 7.4 Test 08/23/16 08:15 08/23/16 08:35 08/23/16 09:08 08/23/16 09:44 Bedside Glucose 51 L 59 L 91 105 Test 08/23/16 11:43 Bedside Glucose 109 Medications Current Medications Sodium Chloride (NS) 1,000 ml @ 75 mls/hr [id number] IV Last administered on 08/23 06:13; Admin Dose 75 MLS/HR; Start 08/13/16 at 15:31 Lorazepam (Ativan) 0.5 mg Q6H PRN IV ANXIETY; Start 08/13/16 at 16:00 Ondansetron HCl (Zofran Inj) 4 mg Q6H PRN IV NAUSEA AND/OR VOMITING; Start 08/13 at 16:00 Nitroglycerin (Nitroglycerin (Sl Tab) 0.4 Mg) 1 tab Q5M PRN SL CHEST PAIN Last administered on 08/21/16 23:04; Admin Dose 1 TAB; Start 08/13/16 at 16:00 Acetaminophen (Tylenol Supp) 650 mg Q6H PRN [place] PAIN LEVEL 1-3 OR FEVER; Start 08/13/16 at 16:00 Morphine Sulfate (morphine) 2 mg Q4H PRN IV PAIN LEVEL 7-10 Last administered on 08/20/16 13:06; Admin Dose 2 MG; Start 08/13/16 at 16:00 Bisacodyl (Dulcolax) 5 mg DAILY PRN PO CONSTIPATION Last administered on 17:57; Admin Dose 5 MG; Start 08/13/16 at 16:00 Miscellaneous Information 1 ea NOTE XX ; Start 08/13/16 at 17:30 Glucose (Glutose) 15 gm Q15M PRN PO DECREASED GLUCOSE; Start 08/13/16 at 17:30 Glucose (Glutose) 22.5 gm Q15M PRN PO DECREASED GLUCOSE; Start 08/13/16 at 17:30 Dextrose (D50w Syringe) 25 ml Q15M PRN IV DECREASED GLUCOSE; Start 08/13/16 at 17:30 Dextrose (D50w Syringe) 50 ml Q15M PRN IV DECREASED GLUCOSE Last administered on 08/23/16 06:16; Admin Dose 50 ML; Start 08/13/16 at 17:30 Glucagon (Glucagen) 1 mg Q15M PRN IM DECREASED GLUCOSE; Start 08/13/16 at 17:30 Glucose (Glutose) 15 gm Q15M PRN BUCCAL DECREASED GLUCOSE; Start 08/13/16 at 17: 30 Mupirocin (Bactroban) 1 applic BID TOP Last administered on 08/23/16 08:41; Admin Dose 1 APPLIC; Start 08/15/16 at 13:00 Atorvastatin Calcium (Lipitor) 10 mg QHS PO Last administered on 08/22/16 22: 01; Admin Dose 10 MG; Start 08/15/16 at 21:00 Metoprolol Tartrate (Lopressor) 50 mg BID PO Last administered on 08/23/16 08: 37; Admin Dose 50 MG; Start 08/15/16 at 15:00 Diagnostic Test (Pha) (Accucheck) 1 ea 02 XX Last administered on 08/21/16 01: 17; Admin Dose 1 EA; Start 08/16/16 at 02:00 Methimazole (Tapazole) 20 mg DAILY PO Last administered on 08/23/16 08:36; Admin Dose 20 MG; Start 08/15/16 at 15:00 Insulin Glargine (Lantus) 22 unit HS SC Last administered on 08/22/16 22:00; Admin Dose 22 UNIT; Start 08/15/16 at 21:00 Linagliptin (Tradjenta) 5 mg DAILY PO Last administered on 08/22/16 08:45; Admin Dose 5 MG; Start 08/15/16 at 18:30 Rifampin 600 mg 600 mg DAILY PO Last administered on 08/23/16 08:37; Admin Dose 600 MG; Start 08/16/16 at 16:30 Ceftriaxone Sodium (Rocephin) 50 ml @ 100 mls/hr Q24H IVPB Last administered on 08/22/16 15:17; Admin Dose 100 MLS/HR; Start 08/16/16 at 15:30 IV Flush (NS 10 ml) 10 ml PRN PRN IV IV PROTOCOL; Start 08/16/16 at 15:30 Collagenase 1 applic 1 applic DAILY TOP Last administered on 08/23/16 08:41; Admin Dose 1 APPLIC; Start 08/17/16 at 09:00 Vancomycin HCl/ Sodium Chloride (Vancocin/NS) 250 ml @ 83.333 mls/ hr Q24H IVPB Last administered on 08/23/16 06:13; Admin Dose 83.333 MLS/HR; Start at 06:00 Pantoprazole (Protonix Tab) 40 mg DAILY@06 PO Last administered on 1/18/17at 06 :42; Admin Dose 40 MG; Start 08/20/16 at 06:00 Diphenhydramine HCl (Benadryl) 25 mg Q6H PRN IV ITCHING Last administered on t 11:52; Admin Dose 25 MG; Start 08/22/16 at 12:00 Assessment/Plan Chief Complaint/Hosp Course MICROBIOLOGY: Blood culture growing MRSA. Urine culture growing E. coli and MRSA. Nares swab came back positive for MRSA. Wound culture growing MRSA/GNR /yeast ANTIMICROBIALS: 1. Vancomycin. 2. Rifampin 3. Rocephin INDWELLINGS: Lundy catheter. PHYSICAL EXAMINATION: GENERAL: Fragile, elderly woman who is lying comfortably in bed. Patient is awake and follows commands. HEENT: Head atraumatic, normocephalic. Sclerae anicteric. Buccal mucosa dry. NECK: Supple, trachea midline. CHEST: Rise symmetrical. Breath sounds clear, diminished to bases. HEART: S1, S2. ABDOMEN: Soft. Bowel tones present. EXTREMITIES: Left upper extremity edema. The patient also has anasarca. ASSESSMENT: 1. Sepsis. 2. Methicillin-resistant Staphylococcus aureus bacteremia. 3. Polymicrobial urinary tract infection with urine culture growing MRSA and E. coli. 4. Bilateral heel cellulitis with chronic wounds==> s/p debridement 5. Methicillin-resistant Staphylococcus aureus nares colonization. 6. Anemia, status post hematemesis and EGD that revealed Faye-Johnson tear and chronic gastritis. 7. History of atrial fibrillation and congestive heart failure. 8. History of cerebrovascular accident. 9. Diabetes. PLAN: The patient remains stable. Will add Diflucan, continue abx, f/u repeat bld cx 08/22, f/u podiatry rec-s and final cx's . staff Problems: DEMAR VILLALOBOS NP Aug 23, 2016 14:24
[2016-08-23] MEDS ORDERED: FLUCONAZOLE 100 MG TAB PO ONE (14:30)
[2016-08-23] MEDS: CEFTRIAXONE 1 GM/50 ML (PMX) 50 ML IVPB SCH (16:11)
[2016-08-23] MEDS: LORATADINE 10 MG TAB PO SCH (16:11)
--- NOTE | 2016-08-23 18:08 | PN ---
Date/Time of Note Date/Time of Note DATE: 08/23/16 TIME: 18:05 Assessment/Plan VTE Prophylaxis VTE Prophylaxis Intervention: SCD's Assessment/Plan Chief Complaint/Hosp Course 1. Upper gastrointestinal bleeding. The patient was evaluated by gastroenterology. Esophagogastroduodenoscopy revealed a Faye-Johnson tear, chronic gastritis, and nodular duodenitis. Continue proton pump inhibitors. -no new e/o GIB per GI 2. Atrial fibrillation with rapid ventricular response. Currently, the rate is controlled. No anticoagulation because of underlying gastrointestinal bleed. Cardiology following. 3. Sepsis with underlying MRSA bacteremia, infected pressure ulcers, and urinary tract infection. Continue antibiotics. Infectious disease is on the case. -Repeat Blood cultures negative at 1 day, will need to continue vancomycin at the [facility] x 2 week after negative culture 4. Infected right heel pressure ulcer. Seen and evaluated by podiatry, s/p local debridement. 5. Essential hypertension. Continue antihypertensives. 6. Peripheral vascular disease. Monitor for acute changes. Anticoagulation on hold because of current gastrointestinal bleed. 7. Dyslipidemia. Continue statins. Fasting lipid panel showing low HDL and low total cholesterol. 8. Type 2 diabetes mellitus. Hemoglobin A1c 9.8. Continue sliding scale insulin. 9. Left upper extremity edema. Left upper extremity venous Doppler study negative for any deep venous thrombosis. Continue elevation of left upper extremity. 10. Multiple pressure ulcers. Continue local wound care. Wound care consult. 11. Hyperthyroidism. The patient was started on methimazole. 12. MRSA colonization of the nares. Continue Bactroban. 13. Fluid, electrolytes and nutrition. Carbohydrate controlled, low- cholesterol diet. 14. DVT prophylaxis with serial sequential compression devices. No anticoagulation because of underlying GI bleed. 15. Gastrointestinal prophylaxis with proton pump inhibitors. Problems: Subjective 24 Hr Interval Summary Constitutional: no complaints Exam/Review of Systems Vital Signs Vitals Vital Signs Date Time Temp Pulse Resp B/P Pulse Ox O2 Delivery O2 Flow Rate FiO2 08/23/16 08:28 86 18 105/55 97 08/23/16 08:00 Nasal Cannula 2.0 08/22/16 20:52 97.9 Intake and Output 08/22/16 08/22/16 08/23/16 15:00 23:00 07:00 Intake Total 650 ml 820 ml 625 ml Output Total 1500 ml Balance 650 ml -680 ml 625 ml Exam Constitutional: alert, oriented Respiratory: clear to auscultation Cardiovascular: regular rate and rhythm Gastrointestinal: soft, No distended Musculoskeletal: No nl extremities to inspection Results Result Diagram: 08/23/1642408/23/16 042 Results 24 hrs Laboratory Tests Test 08/22/16 21:56 08/23/16 04:25 08/23/16 06:19 08/23/16 08:15 Bedside Glucose 131 234 H 51 L Anion Gap 12 Basophils # 0.1 Basophils % 0.8 Blood Morphology Comment Blood Urea Nitrogen 10 Calcium Level 7.2 L Carbon Dioxide Level 23 Chloride Level 109 Creatinine 0.59 Eosinophils # 0.2 Eosinophils % 2.6 Glucose Level 34 #*L Hematocrit 24.4 L Hemoglobin 8.0 L Lymphocytes # 1.8 Lymphocytes % 24.6 Magnesium Level 1.7 Mean Corpuscular Hemoglobin 28.8 L Mean Corpuscular Hemoglobin Concent 32.9 Mean Corpuscular Volume 87.4 Mean Platelet Volume 8.5 Monocytes # 0.3 Monocytes % 3.8 Neutrophils # 5.1 Neutrophils % 68.2 Nucleated Red Blood Cells # 0.0 Nucleated Red Blood Cells % 0.0 Platelet Count 161 Potassium Level 3.6 Red Blood Count 2.79 L Red Cell Distribution Width 16.2 H Sodium Level 140 White Blood Count 7.4 Test 08/23/16 08:35 08/23/16 09:08 08/23/16 09:44 08/23/16 11:43 Bedside Glucose 59 L 91 105 109 Test 08/23/16 16:36 08/23/16 17:26 Bedside Glucose 77 102 Medications Medications Current Medications Sodium Chloride (NS) 1,000 ml @ 75 mls/hr [id number] IV Last administered on 08/23 06:13; Admin Dose 75 MLS/HR; Start 08/13/16 at 15:31 Lorazepam (Ativan) 0.5 mg Q6H PRN IV ANXIETY; Start 08/13/16 at 16:00 Ondansetron HCl (Zofran Inj) 4 mg Q6H PRN IV NAUSEA AND/OR VOMITING; Start 08/13 at 16:00 Nitroglycerin (Nitroglycerin (Sl Tab) 0.4 Mg) 1 tab Q5M PRN SL CHEST PAIN Last administered on 08/21/16 23:04; Admin Dose 1 TAB; Start 08/13/16 at 16:00 Acetaminophen (Tylenol Supp) 650 mg Q6H PRN MI PAIN LEVEL 1-3 OR FEVER; Start 08/13/16 at 16:00 Morphine Sulfate (morphine) 2 mg Q4H PRN IV PAIN LEVEL 7-10 Last administered on 08/20/16 13:06; Admin Dose 2 MG; Start 08/13/16 at 16:00 Bisacodyl (Dulcolax) 5 mg DAILY PRN PO CONSTIPATION Last administered on 17:57; Admin Dose 5 MG; Start 08/13/16 at 16:00 Miscellaneous Information 1 ea NOTE XX ; Start 08/13/16 at 17:30 Glucose (Glutose) 15 gm Q15M PRN PO DECREASED GLUCOSE; Start 08/13/16 at 17:30 Glucose (Glutose) 22.5 gm Q15M PRN PO DECREASED GLUCOSE; Start 08/13/16 at 17:30 Dextrose (D50w Syringe) 25 ml Q15M PRN IV DECREASED GLUCOSE; Start 08/13/16 at 17:30 Dextrose (D50w Syringe) 50 ml Q15M PRN IV DECREASED GLUCOSE Last administered on 08/23/16 06:16; Admin Dose 50 ML; Start 08/13/16 at 17:30 Glucagon (Glucagen) 1 mg Q15M PRN IM DECREASED GLUCOSE; Start 08/13/16 at 17:30 Glucose (Glutose) 15 gm Q15M PRN BUCCAL DECREASED GLUCOSE; Start 08/13/16 at 17: 30 Mupirocin (Bactroban) 1 applic BID TOP Last administered on 08/23/16 08:41; Admin Dose 1 APPLIC; Start 08/15/16 at 13:00 Atorvastatin Calcium (Lipitor) 10 mg QHS PO Last administered on 08/22/16 22: 01; Admin Dose 10 MG; Start 08/15/16 at 21:00 Metoprolol Tartrate (Lopressor) 50 mg BID PO Last administered on 08/23/16 08: 37; Admin Dose 50 MG; Start 08/15/16 at 15:00 Diagnostic Test (Pha) (Accucheck) 1 ea 02 XX Last administered on 08/21/16 01: 17; Admin Dose 1 EA; Start 08/16/16 at 02:00 Methimazole (Tapazole) 20 mg DAILY PO Last administered on 08/23/16 08:36; Admin Dose 20 MG; Start 08/15/16 at 15:00 Insulin Glargine (Lantus) 22 unit HS SC Last administered on 08/22/16 22:00; Admin Dose 22 UNIT; Start 08/15/16 at 21:00 Linagliptin (Tradjenta) 5 mg DAILY PO Last administered on 08/22/16 08:45; Admin Dose 5 MG; Start 08/15/16 at 18:30 Rifampin 600 mg 600 mg DAILY PO Last administered on 08/23/16 08:37; Admin Dose 600 MG; Start 08/16/16 at 16:30 Ceftriaxone Sodium (Rocephin) 50 ml @ 100 mls/hr Q24H IVPB Last administered on 08/23/16 16:11; Admin Dose 100 MLS/HR; Start 08/16/16 at 15:30 IV Flush (NS 10 ml) 10 ml PRN PRN IV IV PROTOCOL; Start 08/16/16 at 15:30 Collagenase 1 applic 1 applic DAILY TOP Last administered on 08/23/16 08:41; Admin Dose 1 APPLIC; Start 08/17/16 at 09:00 Vancomycin HCl/ Sodium Chloride (Vancocin/NS) 250 ml @ 83.333 mls/ hr Q24H IVPB Last administered on 08/23/16 06:13; Admin Dose 83.333 MLS/HR; Start at 06:00 Pantoprazole (Protonix Tab) 40 mg DAILY@06 PO Last administered on 08/23/16 06 :42; Admin Dose 40 MG; Start 08/20/16 at 06:00 Diphenhydramine HCl (Benadryl) 25 mg Q6H PRN IV ITCHING Last administered on 11:52; Admin Dose 25 MG; Start 08/22/16 at 12:00 Fluconazole (Diflucan) 100 mg DAILY NGT ; Start 08/24/16 at 09:00 Loratadine (Claritin) 10 mg DAILY PO Last administered on 08/23/16 16:11; Admin Dose 10 MG; Start 08/23/16 at 14:30 MEG PETERSON Aug 23, 2016 18:08
--- NOTE | 2016-08-23 18:35 | CONS ---
Date/Time of Note Date/Time of Note DATE: 08/23/16 TIME: 18:34 Assessment/Plan Assessment/Plan Additional Assessment/Plan IMPRESSION: 1. Upper gastrointestinal bleeding, rule out peptic ulcer disease, rule out Faye-Johnson tear, rule out gastroesophageal reflux disease. 2. Hypertension. 3. Cerebrovascular accident. 4. Diabetes mellitus. 5. Hyperthyroidism. 6. Anemia.ht 24 now,no acute g.i. bleeding,rectal exam old black stool 7. Sepsis with positive blood culture.MRSA,on antibiotics 8. Urinary tract infection. 9. edema upper extremity Plan no further bleeding,further drop in ht.secondary to hydration continue antibiotics monitor H&H continue PPI no anticoagulant Consultation Date/Type/Reason Admit Date/Time Aug 14, 2016 at 01:54 Initial Consult Date 08/15/16 Type of Consultation: id Referring Provider: SÁNCHEZ WOMACK MD 24 HR Interval Summary Constitutional: improved, no complaints Exam/Review of Systems Vital Signs Vitals Vital Signs Date Time Temp Pulse Resp B/P Pulse Ox O2 Delivery O2 Flow Rate FiO2 08/23/16 08:28 86 18 105/55 97 08/23/16 08:00 Nasal Cannula 2.0 08/22/16 20:52 97.9 Intake and Output 08/22/16 08/22/16 08/23/16 15:00 23:00 07:00 Intake Total 650 ml 820 ml 625 ml Output Total 1500 ml Balance 650 ml -680 ml 625 ml Exam Constitutional: alert, oriented, well developed Psych: nl mood/affect, no complaints Head: atraumatic, normocephalic Eyes: EOMI, PERRL, nl conjunctiva, nl lids, nl sclera ENMT: nl external ears & nose, nl lips & teeth, nl nasal mucosa & septum Neck: non-tender, supple Respiratory: clear to auscultation, normal air movement Cardiovascular: nl pulses, regular rate and rhythm Gastrointestinal: nl liver, spleen, non-tender, soft Musculoskeletal: nl extremities to inspection, nl gait and stance Extremities: normal pulses Neurological: [employer] II-XII intact, nl mental status, nl speech, nl strength Skin: nl turgor, No rash or lesions Lymph: nl lymph nodes Results Result Diagram: 08/23/16 0425 08/23/16 0425 Results 24 hrs Laboratory Tests Test 08/22/16 21:56 08/23/16 04:25 08/23/16 06:19 08/23/16 08:15 Bedside Glucose 131 234 H 51 L Anion Gap 12 Basophils # 0.1 Basophils % 0.8 Blood Morphology Comment Blood Urea Nitrogen 10 Calcium Level 7.2 L Carbon Dioxide Level 23 Chloride Level 109 Creatinine 0.59 Eosinophils # 0.2 Eosinophils % 2.6 Glucose Level 34 #*L Hematocrit 24.4 L Hemoglobin 8.0 L Lymphocytes # 1.8 Lymphocytes % 24.6 Magnesium Level 1.7 Mean Corpuscular Hemoglobin 28.8 L Mean Corpuscular Hemoglobin Concent 32.9 Mean Corpuscular Volume 87.4 Mean Platelet Volume 8.5 Monocytes # 0.3 Monocytes % 3.8 Neutrophils # 5.1 Neutrophils % 68.2 Nucleated Red Blood Cells # 0.0 Nucleated Red Blood Cells % 0.0 Platelet Count 161 Potassium Level 3.6 Red Blood Count 2.79 L Red Cell Distribution Width 16.2 H Sodium Level 140 White Blood Count 7.4 Test 08/23/16 08:35 08/23/16 09:08 08/23/16 09:44 08/23/16 11:43 Bedside Glucose 59 L 91 105 109 Test 08/23/16 16:36 08/23/16 17:26 Bedside Glucose 77 102 Medications Medications Current Medications Sodium Chloride (NS) 1,000 ml @ 75 mls/hr [id number] IV Last administered on 08/23 06:13; Admin Dose 75 MLS/HR; Start 08/13/16 at 15:31 Lorazepam (Ativan) 0.5 mg Q6H PRN IV ANXIETY; Start 08/13/16 at 16:00 Ondansetron HCl (Zofran Inj) 4 mg Q6H PRN IV NAUSEA AND/OR VOMITING; Start 08/13 at 16:00 Nitroglycerin (Nitroglycerin (Sl Tab) 0.4 Mg) 1 tab Q5M PRN SL CHEST PAIN Last administered on 08/21/16 23:04; Admin Dose 1 TAB; Start 08/13/16 at 16:00 Acetaminophen (Tylenol Supp) 650 mg Q6H PRN [place] PAIN LEVEL 1-3 OR FEVER; Start 08/13/16 at 16:00 Morphine Sulfate (morphine) 2 mg Q4H PRN IV PAIN LEVEL 7-10 Last administered on 08/20/16 13:06; Admin Dose 2 MG; Start 08/13/16 at 16:00 Bisacodyl (Dulcolax) 5 mg DAILY PRN PO CONSTIPATION Last administered on 17:57; Admin Dose 5 MG; Start 08/13/16 at 16:00 Miscellaneous Information 1 ea NOTE XX ; Start 08/13/16 at 17:30 Glucose (Glutose) 15 gm Q15M PRN PO DECREASED GLUCOSE; Start 08/13/16 at 17:30 Glucose (Glutose) 22.5 gm Q15M PRN PO DECREASED GLUCOSE; Start 08/13/16 at 17:30 Dextrose (D50w Syringe) 25 ml Q15M PRN IV DECREASED GLUCOSE; Start 08/13/16 at 17:30 Dextrose (D50w Syringe) 50 ml Q15M PRN IV DECREASED GLUCOSE Last administered on 08/23/16 06:16; Admin Dose 50 ML; Start 08/13/16 at 17:30 Glucagon (Glucagen) 1 mg Q15M PRN IM DECREASED GLUCOSE; Start 08/13/16 at 17:30 Glucose (Glutose) 15 gm Q15M PRN BUCCAL DECREASED GLUCOSE; Start 08/13/16 at 17: 30 Mupirocin (Bactroban) 1 applic BID TOP Last administered on 08/23/16 08:41; Admin Dose 1 APPLIC; Start 08/15/16 at 13:00 Atorvastatin Calcium (Lipitor) 10 mg QHS PO Last administered on 08/22/16 22: 01; Admin Dose 10 MG; Start 08/15/16 at 21:00 Metoprolol Tartrate (Lopressor) 50 mg BID PO Last administered on 08/23/16 08: 37; Admin Dose 50 MG; Start 08/15/16 at 15:00 Diagnostic Test (Pha) (Accucheck) 1 ea 02 XX Last administered on 08/21/16 01: 17; Admin Dose 1 EA; Start 08/16/16 at 02:00 Methimazole (Tapazole) 20 mg DAILY PO Last administered on 08/23/16 08:36; Admin Dose 20 MG; Start 08/15/16 at 15:00 Linagliptin (Tradjenta) 5 mg DAILY PO Last administered on 08/22/16 08:45; Admin Dose 5 MG; Start 08/15/16 at 18:30 Rifampin 600 mg 600 mg DAILY PO Last administered on 08/23/16 08:37; Admin Dose 600 MG; Start 08/16/16 at 16:30 Ceftriaxone Sodium (Rocephin) 50 ml @ 100 mls/hr Q24H IVPB Last administered on 08/23/16 16:11; Admin Dose 100 MLS/HR; Start 08/16/16 at 15:30 IV Flush (NS 10 ml) 10 ml PRN PRN IV IV PROTOCOL; Start 08/16/16 at 15:30 Collagenase 1 applic 1 applic DAILY TOP Last administered on 08/23/16 08:41; Admin Dose 1 APPLIC; Start 08/17/16 at 09:00 Vancomycin HCl/ Sodium Chloride (Vancocin/NS) 250 ml @ 83.333 mls/ hr Q24H IVPB Last administered on 08/23/16 06:13; Admin Dose 83.333 MLS/HR; Start at 06:00 Pantoprazole (Protonix Tab) 40 mg DAILY@06 PO Last administered on 08/23/16 06 :42; Admin Dose 40 MG; Start 08/20/16 at 06:00 Diphenhydramine HCl (Benadryl) 25 mg Q6H PRN IV ITCHING Last administered on 11:52; Admin Dose 25 MG; Start 08/22/16 at 12:00 Fluconazole (Diflucan) 100 mg DAILY NGT ; Start 08/24/16 at 09:00 Loratadine (Claritin) 10 mg DAILY PO Last administered on 08/23/16 16:11; Admin Dose 10 MG; Start 08/23/16 at 14:30 Insulin Glargine (Lantus) 10 unit HS SC ; Start 08/23/16 at 21:00 CHANCE QUEZADA MD Aug 23, 2016 18:35
[2016-08-23 20:23] VITALS: BP 136/62; RESP 18
[2016-08-23] MEDS: ATORVASTATIN 10 MG TAB PO SCH (20:45)
[2016-08-23] MEDS: INSULIN GLARGINE [LANtus] 3 ML PEN SC SCH (20:47)
[2016-08-24] MEDS: ACCUCHECK XX SCH (02:24)
[2016-08-24] MEDS: DIPHENHYDRAMINE 50 MG INJ IV PRN ×2 (04:22→20:19)
[2016-08-24] MEDS: PANTOPRAZOLE (EC) 40 MG TAB PO SCH (05:20)
[2016-08-24] MEDS: VANCOMYCIN 1.25 GM in SOD CHLORIDE 0.9% 250 ML IVPB SCH (05:21)
[2016-08-24] MEDS: DEXTROSE 50% 50 ML SYRINGE IV PRN (05:32)
[2016-08-24 05:52] LABS: BASOPHIL # 0.1 10^3/ul (0.0-0.1); BASOPHILS % 0.8 % (0.0-2.0); EOSINOPHILS # 0.3 10^3/ul (0.0-0.5); EOSINOPHILS % 4.2 % (0.0-7.0); HEMATOCRIT 24.9 % (37.0-47.0); HEMOGLOBIN 8.3 g/dl (12.0-16.0); LYMPHOCYTES # 1.5 10^3/ul (0.8-2.9); MEAN CORPUSCULAR HGB CONC 33.1 g/dl (32.0-37.0); MEAN CORPUSCULAR VOLUME 87.5 fl (82.0-101.0); MONOCYTE # 0.3 10^3/ul (0.3-0.9); MONOCYTES % 4.9 % (0.0-11.0); NEUTROPHIL # 4.2 10^3/ul (1.6-7.5); NEUTROPHILS % 66.1 % (39.0-77.0); PLATELET COUNT 151 10^3/UL (140-440); RED BLOOD COUNT 2.84 10^6/ul (4.20-5.40); RED CELL DISTRIBUTION WIDTH 16.5 % (11.5-14.5); UNCORRECTED WBC 6.4 10^3/ul (4.8-10.8); WHITE BLOOD COUNT 6.4 10^3/ul (4.8-10.8)
[2016-08-24 06:05] LABS: POTASSIUM 4.2 mmol/L (3.5-5.1)
[2016-08-24 06:07] LABS: CONDITION 1; LH ANALYZER COMMENTS 1
[2016-08-24 06:08] LABS: CALCIUM 7.6 mg/dl (8.4-10.2); CREATININE 0.61 mg/dl (0.44-1.00); MAGNESIUM 1.5 mg/dl (1.7-2.5)
[2016-08-24 07:58] VITALS: BP 128/75; RESP 18
[2016-08-24] MEDS: INSULIN ASPART [NOVOLOG] 3 ML PEN SC SCH ×4 (08:00→20:15)
[2016-08-24] MEDS: FLUCONAZOLE 100 MG TAB NGT SCH (08:30)
[2016-08-24] MEDS: LORATADINE 10 MG TAB PO SCH (08:31)
[2016-08-24] MEDS: LINAGLIPTIN 5 MG TABLET PO SCH (08:31)
[2016-08-24] MEDS: METOPROLOL 50 MG TAB PO SCH ×2 (08:31→20:17)
[2016-08-24] MEDS: COLLAGENASE 30 GM TUBE TOP SCH (08:32)
[2016-08-24] MEDS: METHIMAZOLE 5 MG TAB PO SCH (08:32)
[2016-08-24] MEDS: MUPIROCIN 2% 22 GM OINT TOP SCH ×2 (08:32→21:55)
[2016-08-24] MEDS: RIFAMPIN 300 MG CAP PO SCH (08:32)
--- NOTE | 2016-08-24 14:05 | CONS ---
Date/Time of Note Date/Time of Note DATE: 08/24/16 TIME: 14:03 Consult Date/Type/Reason Admit Date/Time Aug 14, 2016 at 01:54 Initial Consult Date 08/15/16 Type of Consultation: id Ordering Provider: SÁNCHEZ WOMACK MD Subjective no events, no fevers, looks comfortable Objective Vital Signs Date Time Temp Pulse Resp B/P Pulse Ox O2 Delivery O2 Flow Rate FiO2 08/24/16 10:34 Nasal Cannula 2.0 08/24/16 07:58 98.5 100 18 128/75 95 Intake and Output 08/23/16 08/23/16 08/24/16 15:00 23:00 07:00 Intake Total 383.333 ml 2460 ml 1470 ml Output Total 700 ml 2300 ml 1500 ml Balance -316.667 ml 160 ml -30 ml Results/Medications Result Diagram: 08/24/16 0420 08/24/16 0420 Results 24 hrs Laboratory Tests Test 08/23/16 16:36 08/23/16 17:26 08/23/16 20:42 08/24/16 01:41 Bedside Glucose 77 102 133 80 Test 08/24/16 04:20 08/24/16 05:29 08/24/16 05:51 08/24/16 07:54 Anion Gap 10 Basophils # 0.1 Basophils % 0.8 Blood Morphology Comment Blood Urea Nitrogen 9 Calcium Level 7.6 L Carbon Dioxide Level 27 Chloride Level 108 Creatinine 0.61 Eosinophils # 0.3 Eosinophils % 4.2 Glucose Level 49 #*L Hematocrit 24.9 L Hemoglobin 8.3 L Lymphocytes # 1.5 Lymphocytes % 24.0 Magnesium Level 1.5 L Mean Corpuscular Hemoglobin 29.0 Mean Corpuscular Hemoglobin Concent 33.1 Mean Corpuscular Volume 87.5 Mean Platelet Volume 9.0 Monocytes # 0.3 Monocytes % 4.9 Neutrophils # 4.2 Neutrophils % 66.1 Nucleated Red Blood Cells # 0.0 Nucleated Red Blood Cells % 0.0 Platelet Count 151 Potassium Level 4.2 Red Blood Count 2.84 L Red Cell Distribution Width 16.5 H Sodium Level 141 White Blood Count 6.4 Bedside Glucose 57 L 118 75 Test 08/24/16 11:45 Bedside Glucose 155 Medications Current Medications Sodium Chloride (NS) 1,000 ml @ 75 mls/hr [id number] IV Last administered on 08/23 23:55; Admin Dose 75 MLS/HR; Start 08/13/16 at 15:31 Lorazepam (Ativan) 0.5 mg Q6H PRN IV ANXIETY; Start 08/13/16 at 16:00 Ondansetron HCl (Zofran Inj) 4 mg Q6H PRN IV NAUSEA AND/OR VOMITING; Start 08/13 at 16:00 Nitroglycerin (Nitroglycerin (Sl Tab) 0.4 Mg) 1 tab Q5M PRN SL CHEST PAIN Last administered on 08/21/16 23:04; Admin Dose 1 TAB; Start 08/13/16 at 16:00 Acetaminophen (Tylenol Supp) 650 mg Q6H PRN [place] PAIN LEVEL 1-3 OR FEVER; Start 08/13/16 at 16:00 Morphine Sulfate (morphine) 2 mg Q4H PRN IV PAIN LEVEL 7-10 Last administered on 08/20/16 13:06; Admin Dose 2 MG; Start 08/13/16 at 16:00 Bisacodyl (Dulcolax) 5 mg DAILY PRN PO CONSTIPATION Last administered on 17:57; Admin Dose 5 MG; Start 08/13/16 at 16:00 Miscellaneous Information 1 ea NOTE XX ; Start 08/13/16 at 17:30 Glucose (Glutose) 15 gm Q15M PRN PO DECREASED GLUCOSE; Start 08/13/16 at 17:30 Glucose (Glutose) 22.5 gm Q15M PRN PO DECREASED GLUCOSE; Start 08/13/16 at 17:30 Dextrose (D50w Syringe) 25 ml Q15M PRN IV DECREASED GLUCOSE Last administered on 08/24/16 05:32; Admin Dose 25 ML; Start 08/13/16 at 17:30 Dextrose (D50w Syringe) 50 ml Q15M PRN IV DECREASED GLUCOSE Last administered on 08/23/16 06:16; Admin Dose 50 ML; Start 08/13/16 at 17:30 Glucagon (Glucagen) 1 mg Q15M PRN IM DECREASED GLUCOSE; Start 08/13/16 at 17:30 Glucose (Glutose) 15 gm Q15M PRN BUCCAL DECREASED GLUCOSE; Start 08/13/16 at 17: 30 Mupirocin (Bactroban) 1 applic BID TOP Last administered on 08/24/16 08:32; Admin Dose 1 APPLIC; Start 08/15/16 at 13:00 Atorvastatin Calcium (Lipitor) 10 mg QHS PO Last administered on 08/23/16 20: 45; Admin Dose 10 MG; Start 08/15/16 at 21:00 Metoprolol Tartrate (Lopressor) 50 mg BID PO Last administered on 08/24/16 08: 31; Admin Dose 50 MG; Start 08/15/16 at 15:00 Diagnostic Test (Pha) (Accucheck) 1 ea 02 XX Last administered on 08/24/16 02: 24; Admin Dose 1 EA; Start 08/16/16 at 02:00 Methimazole (Tapazole) 20 mg DAILY PO Last administered on 08/24/16 08:32; Admin Dose 20 MG; Start 08/15/16 at 15:00 Linagliptin (Tradjenta) 5 mg DAILY PO Last administered on 08/24/16 08:31; Admin Dose 5 MG; Start 08/15/16 at 18:30 Rifampin 600 mg 600 mg DAILY PO Last administered on 08/24/16 08:32; Admin Dose 600 MG; Start 08/16/16 at 16:30 Ceftriaxone Sodium (Rocephin) 50 ml @ 100 mls/hr Q24H IVPB Last administered on 08/23/16 16:11; Admin Dose 100 MLS/HR; Start 08/16/16 at 15:30 IV Flush (NS 10 ml) 10 ml PRN PRN IV IV PROTOCOL; Start 08/16/16 at 15:30 Collagenase 1 applic 1 applic DAILY TOP Last administered on 08/24/16 08:32; Admin Dose 1 APPLIC; Start 08/17/16 at 09:00 Vancomycin HCl/ Sodium Chloride (Vancocin/NS) 250 ml @ 83.333 mls/ hr Q24H IVPB Last administered on 08/24/16 05:21; Admin Dose 83.333 MLS/HR; Start at 06:00 Pantoprazole (Protonix Tab) 40 mg DAILY@06 PO Last administered on 08/24/16 05 :20; Admin Dose 40 MG; Start 08/20/16 at 06:00 Diphenhydramine HCl (Benadryl) 25 mg Q6H PRN IV ITCHING Last administered on 04:22; Admin Dose 25 MG; Start 08/22/16 at 12:00 Fluconazole (Diflucan) 100 mg DAILY NGT Last administered on 08/24/16 08:30; Admin Dose 100 MG; Start 08/24/16 at 09:00 Loratadine (Claritin) 10 mg DAILY PO Last administered on 08/24/16 08:31; Admin Dose 10 MG; Start 08/23/16 at 14:30 Insulin Glargine (Lantus) 10 unit HS SC Last administered on 08/23/16 20:47; Admin Dose 10 UNIT; Start 08/23/16 at 21:00 Miscellaneous Information (*Rx Drug Level Order Reminder*) VANCO TROUGH @ 0, 500 ON... ONCE ONCE XX ; Start 08/25/16 at 05:00; Stop 08/25/16 at 05:01 Assessment/Plan Chief Complaint/Hosp Course MICROBIOLOGY: Blood culture growing MRSA. Urine culture growing E. coli and MRSA. Nares swab came back positive for MRSA. Wound culture growing MRSA/GNR /yeast ANTIMICROBIALS: 1. Vancomycin. 2. Rifampin 3. Rocephin 4. Diflucan INDWELLINGS: Lundy catheter. PHYSICAL EXAMINATION: GENERAL: Fragile, elderly woman who is lying comfortably in bed. Patient is awake and follows commands. HEENT: Head atraumatic, normocephalic. Sclerae anicteric. Buccal mucosa dry. NECK: Supple, trachea midline. CHEST: Rise symmetrical. Breath sounds clear, diminished to bases. HEART: S1, S2. ABDOMEN: Soft. Bowel tones present. EXTREMITIES: Left upper extremity edema. The patient also has anasarca. ASSESSMENT: 1. S/p sepsis. 2. Methicillin-resistant Staphylococcus aureus bacteremia 2 to below. 3. Polymicrobial urinary tract infection with urine culture growing MRSA and E. coli. 4. Bilateral heel cellulitis with chronic wounds==> s/p debridement 5. Methicillin-resistant Staphylococcus aureus nares colonization. 6. Anemia, status post hematemesis and EGD that revealed Faye-Johnson tear and chronic gastritis. 7. History of atrial fibrillation and congestive heart failure. 8. History of cerebrovascular accident. 9. Diabetes. PLAN: The patient remains stable, repeat bld cx negative, continue abx for 2 more weeks, wound care per podiatry rec-s . DW staff DW Dr Higginbotham Problems: DEMAR VILLALOBOS NP Aug 24, 2016 14:05
--- NOTE | 2016-08-24 15:04 | CONS ---
Date/Time of Note Date/Time of Note DATE: 08/24/16 TIME: 15:03 Assessment/Plan Assessment/Plan Additional Assessment/Plan Sepsis with positive blood cultures Atrial fibrillation with rapid ventricular rates, improved Acute blood loss anemia Preserved ejection fraction Hyperthyroidism History of congestive heart failure History of hypertension History of CVA GI bleed Diabetes -Would continue beta sha as blood pressure permits. Magnesium supplementation ordered. No anticoagulation given GI bleed. Consultation Date/Type/Reason Admit Date/Time Aug 14, 2016 at 01:54 Initial Consult Date 08/15/16 Type of Consultation: cv Referring Provider: SÁNCEHZ WOMACK MD 24 HR Interval Summary Free Text/Dictation denies cp, sob, palp Exam/Review of Systems Vital Signs Vitals Vital Signs Date Time Temp Pulse Resp B/P Pulse Ox O2 Delivery O2 Flow Rate FiO2 08/24/16 10:34 Nasal Cannula 2.0 08/24/16 07:58 98.5 100 18 128/75 95 Intake and Output 08/23/16 08/23/16 08/24/16 15:00 23:00 07:00 Intake Total 383.333 ml 2460 ml 1470 ml Output Total 700 ml 2300 ml 1500 ml Balance -316.667 ml 160 ml -30 ml Exam follows commands, nad Constitutional: alert Head: normocephalic Neck: supple Respiratory: other (course bs, no wheeze) Cardiovascular: irregular rhythm, other (s1s2) Gastrointestinal: bowel sounds, non-tender, soft Extremities: edema Results Result Diagram: 08/24/16 0420 08/24/16 0420 Results 24 hrs Laboratory Tests Test 08/23/16 16:36 08/23/16 17:26 08/23/16 20:42 08/24/16 01:41 Bedside Glucose 77 102 133 80 Test 08/24/16 04:20 08/24/16 05:29 08/24/16 05:51 08/24/16 07:54 Anion Gap 10 Basophils # 0.1 Basophils % 0.8 Blood Morphology Comment Blood Urea Nitrogen 9 Calcium Level 7.6 L Carbon Dioxide Level 27 Chloride Level 108 Creatinine 0.61 Eosinophils # 0.3 Eosinophils % 4.2 Glucose Level 49 #*L Hematocrit 24.9 L Hemoglobin 8.3 L Lymphocytes # 1.5 Lymphocytes % 24.0 Magnesium Level 1.5 L Mean Corpuscular Hemoglobin 29.0 Mean Corpuscular Hemoglobin Concent 33.1 Mean Corpuscular Volume 87.5 Mean Platelet Volume 9.0 Monocytes # 0.3 Monocytes % 4.9 Neutrophils # 4.2 Neutrophils % 66.1 Nucleated Red Blood Cells # 0.0 Nucleated Red Blood Cells % 0.0 Platelet Count 151 Potassium Level 4.2 Red Blood Count 2.84 L Red Cell Distribution Width 16.5 H Sodium Level 141 White Blood Count 6.4 Bedside Glucose 57 L 118 75 Test 08/24/16 11:45 Bedside Glucose 155 Medications Medications Current Medications Sodium Chloride (NS) 1,000 ml @ 75 mls/hr [id number] IV Last administered on 08/23 23:55; Admin Dose 75 MLS/HR; Start 08/13/16 at 15:31 Lorazepam (Ativan) 0.5 mg Q6H PRN IV ANXIETY; Start 08/13/16 at 16:00 Ondansetron HCl (Zofran Inj) 4 mg Q6H PRN IV NAUSEA AND/OR VOMITING; Start 08/13 at 16:00 Nitroglycerin (Nitroglycerin (Sl Tab) 0.4 Mg) 1 tab Q5M PRN SL CHEST PAIN Last administered on 08/21/16 23:04; Admin Dose 1 TAB; Start 08/13/16 at 16:00 Acetaminophen (Tylenol Supp) 650 mg Q6H PRN [place] PAIN LEVEL 1-3 OR FEVER; Start 08/13/16 at 16:00 Morphine Sulfate (morphine) 2 mg Q4H PRN IV PAIN LEVEL 7-10 Last administered on 08/20/16 13:06; Admin Dose 2 MG; Start 08/13/16 at 16:00 Bisacodyl (Dulcolax) 5 mg DAILY PRN PO CONSTIPATION Last administered on 17:57; Admin Dose 5 MG; Start 08/13/16 at 16:00 Miscellaneous Information 1 ea NOTE XX ; Start 08/13/16 at 17:30 Glucose (Glutose) 15 gm Q15M PRN PO DECREASED GLUCOSE; Start 08/13/16 at 17:30 Glucose (Glutose) 22.5 gm Q15M PRN PO DECREASED GLUCOSE; Start 08/13/16 at 17:30 Dextrose (D50w Syringe) 25 ml Q15M PRN IV DECREASED GLUCOSE Last administered on 08/24/16 05:32; Admin Dose 25 ML; Start 08/13/16 at 17:30 Dextrose (D50w Syringe) 50 ml Q15M PRN IV DECREASED GLUCOSE Last administered on 08/23/16 06:16; Admin Dose 50 ML; Start 08/13/16 at 17:30 Glucagon (Glucagen) 1 mg Q15M PRN IM DECREASED GLUCOSE; Start 08/13/16 at 17:30 Glucose (Glutose) 15 gm Q15M PRN BUCCAL DECREASED GLUCOSE; Start 08/13/16 at 17: 30 Mupirocin (Bactroban) 1 applic BID TOP Last administered on 08/24/16 08:32; Admin Dose 1 APPLIC; Start 08/15/16 at 13:00 Atorvastatin Calcium (Lipitor) 10 mg QHS PO Last administered on 08/23/16 20: 45; Admin Dose 10 MG; Start 08/15/16 at 21:00 Metoprolol Tartrate (Lopressor) 50 mg BID PO Last administered on 08/24/16 08: 31; Admin Dose 50 MG; Start 08/15/16 at 15:00 Diagnostic Test (Pha) (Accucheck) 1 ea 02 XX Last administered on 08/24/16 02: 24; Admin Dose 1 EA; Start 08/16/16 at 02:00 Methimazole (Tapazole) 20 mg DAILY PO Last administered on 08/24/16 08:32; Admin Dose 20 MG; Start 08/15/16 at 15:00 Linagliptin (Tradjenta) 5 mg DAILY PO Last administered on 08/24/16 08:31; Admin Dose 5 MG; Start 08/15/16 at 18:30 Rifampin 600 mg 600 mg DAILY PO Last administered on 08/24/16 08:32; Admin Dose 600 MG; Start 08/16/16 at 16:30 Ceftriaxone Sodium (Rocephin) 50 ml @ 100 mls/hr Q24H IVPB Last administered on 08/23/16 16:11; Admin Dose 100 MLS/HR; Start 08/16/16 at 15:30 IV Flush (NS 10 ml) 10 ml PRN PRN IV IV PROTOCOL; Start 08/16/16 at 15:30 Collagenase 1 applic 1 applic DAILY TOP Last administered on 1/19/17at 08:32; Admin Dose 1 APPLIC; Start 08/17/16 at 09:00 Vancomycin HCl/ Sodium Chloride (Vancocin/NS) 250 ml @ 83.333 mls/ hr Q24H IVPB Last administered on 08/24/16 05:21; Admin Dose 83.333 MLS/HR; Start at 06:00 Pantoprazole (Protonix Tab) 40 mg DAILY@06 PO Last administered on 08/24/16 05 :20; Admin Dose 40 MG; Start 08/20/16 at 06:00 Diphenhydramine HCl (Benadryl) 25 mg Q6H PRN IV ITCHING Last administered on 04:22; Admin Dose 25 MG; Start 08/22/16 at 12:00 Fluconazole (Diflucan) 100 mg DAILY NGT Last administered on 08/24/16 08:30; Admin Dose 100 MG; Start 08/24/16 at 09:00 Loratadine (Claritin) 10 mg DAILY PO Last administered on 08/24/16 08:31; Admin Dose 10 MG; Start 08/23/16 at 14:30 Insulin Glargine (Lantus) 10 unit HS SC Last administered on 08/23/16 20:47; Admin Dose 10 UNIT; Start 08/23/16 at 21:00 Miscellaneous Information (*Rx Drug Level Order Reminder*) VANCO TROUGH @ 0, 500 ON... ONCE ONCE XX ; Start 08/25/16 at 05:00; Stop 08/25/16 at 05:01 Shawn Lozada DO Aug 24, 2016 15:04
--- NOTE | 2016-08-24 15:24 | PN ---
Date/Time of Note Date/Time of Note DATE: 08/24/16 TIME: 15:22 Assessment/Plan VTE Prophylaxis VTE Prophylaxis Intervention: SCD's Assessment/Plan Chief Complaint/Hosp Course 1. Upper gastrointestinal bleeding. The patient was evaluated by gastroenterology. Esophagogastroduodenoscopy revealed a Faye-Johnson tear, chronic gastritis, and nodular duodenitis. Continue proton pump inhibitors. -no new e/o GIB per GI 2. Atrial fibrillation with rapid ventricular response. Currently, the rate is controlled. No anticoagulation because of underlying gastrointestinal bleed. Cardiology following. 3. Sepsis with underlying MRSA bacteremia, infected pressure ulcers, and urinary tract infection. Continue antibiotics. Infectious disease is on the case. -Repeat Blood cultures negative x 2 days, will need to continue vancomycin at the senior care x 2 week, Isolation bed needed and her SNF does not have any available Isolation beds at this time 4. Infected right heel pressure ulcer. Seen and evaluated by podiatry, s/p local debridement. 5. Essential hypertension. Continue antihypertensives. 6. Peripheral vascular disease. Monitor for acute changes. Anticoagulation on hold because of current gastrointestinal bleed. 7. Dyslipidemia. Continue statins. Fasting lipid panel showing low HDL and low total cholesterol. 8. Type 2 diabetes mellitus. Hemoglobin A1c 9.8. Continue sliding scale insulin. 9. Left upper extremity edema. Left upper extremity venous Doppler study negative for any deep venous thrombosis. Continue elevation of left upper extremity. 10. Multiple pressure ulcers. Continue local wound care. Wound care consult. 11. Hyperthyroidism. The patient was started on methimazole. 12. MRSA colonization of the nares. Continue Bactroban. 13. Fluid, electrolytes and nutrition. Carbohydrate controlled, low- cholesterol diet. 14. DVT prophylaxis with serial sequential compression devices. No anticoagulation because of underlying GI bleed. 15. Gastrointestinal prophylaxis with proton pump inhibitors. Problems: Subjective 24 Hr Interval Summary Constitutional: no complaints Exam/Review of Systems Vital Signs Vitals Vital Signs Date Time Temp Pulse Resp B/P Pulse Ox O2 Delivery O2 Flow Rate FiO2 08/24/16 10:34 Nasal Cannula 2.0 08/24/16 07:58 98.5 100 18 128/75 95 Intake and Output 08/23/16 08/23/16 08/24/16 15:00 23:00 07:00 Intake Total 383.333 ml 2460 ml 1470 ml Output Total 700 ml 2300 ml 1500 ml Balance -316.667 ml 160 ml -30 ml Exam Constitutional: alert Respiratory: clear to auscultation Cardiovascular: regular rate and rhythm Gastrointestinal: soft, No distended Musculoskeletal: No nl extremities to inspection Results Result Diagram: 08/24/16 0420 08/24/16 0420 Results 24 hrs Laboratory Tests Test 08/23/16 16:36 08/23/16 17:26 08/23/16 20:42 08/24/16 01:41 Bedside Glucose 77 102 133 80 Test 08/24/16 04:20 08/24/16 05:29 08/24/16 05:51 08/24/16 07:54 Anion Gap 10 Basophils # 0.1 Basophils % 0.8 Blood Morphology Comment Blood Urea Nitrogen 9 Calcium Level 7.6 L Carbon Dioxide Level 27 Chloride Level 108 Creatinine 0.61 Eosinophils # 0.3 Eosinophils % 4.2 Glucose Level 49 #*L Hematocrit 24.9 L Hemoglobin 8.3 L Lymphocytes # 1.5 Lymphocytes % 24.0 Magnesium Level 1.5 L Mean Corpuscular Hemoglobin 29.0 Mean Corpuscular Hemoglobin Concent 33.1 Mean Corpuscular Volume 87.5 Mean Platelet Volume 9.0 Monocytes # 0.3 Monocytes % 4.9 Neutrophils # 4.2 Neutrophils % 66.1 Nucleated Red Blood Cells # 0.0 Nucleated Red Blood Cells % 0.0 Platelet Count 151 Potassium Level 4.2 Red Blood Count 2.84 L Red Cell Distribution Width 16.5 H Sodium Level 141 White Blood Count 6.4 Bedside Glucose 57 L 118 75 Test 08/24/16 11:45 Bedside Glucose 155 Medications Medications Current Medications Sodium Chloride (NS) 1,000 ml @ 75 mls/hr [id number] IV Last administered on 08/23 23:55; Admin Dose 75 MLS/HR; Start 08/13/16 at 15:31 Lorazepam (Ativan) 0.5 mg Q6H PRN IV ANXIETY; Start 08/13/16 at 16:00 Ondansetron HCl (Zofran Inj) 4 mg Q6H PRN IV NAUSEA AND/OR VOMITING; Start 08/13 at 16:00 Nitroglycerin (Nitroglycerin (Sl Tab) 0.4 Mg) 1 tab Q5M PRN SL CHEST PAIN Last administered on 1/16/17at 23:04; Admin Dose 1 TAB; Start 08/13/16 at 16:00 Acetaminophen (Tylenol Supp) 650 mg Q6H PRN [place] PAIN LEVEL 1-3 OR FEVER; Start 08/13/16 at 16:00 Morphine Sulfate (morphine) 2 mg Q4H PRN IV PAIN LEVEL 7-10 Last administered on 08/20/16 13:06; Admin Dose 2 MG; Start 08/13/16 at 16:00 Bisacodyl (Dulcolax) 5 mg DAILY PRN PO CONSTIPATION Last administered on 17:57; Admin Dose 5 MG; Start 08/13/16 at 16:00 Miscellaneous Information 1 ea NOTE XX ; Start 08/13/16 at 17:30 Glucose (Glutose) 15 gm Q15M PRN PO DECREASED GLUCOSE; Start 08/13/16 at 17:30 Glucose (Glutose) 22.5 gm Q15M PRN PO DECREASED GLUCOSE; Start 08/13/16 at 17:30 Dextrose (D50w Syringe) 25 ml Q15M PRN IV DECREASED GLUCOSE Last administered on 08/24/16 05:32; Admin Dose 25 ML; Start 08/13/16 at 17:30 Dextrose (D50w Syringe) 50 ml Q15M PRN IV DECREASED GLUCOSE Last administered on 08/23/16 06:16; Admin Dose 50 ML; Start 08/13/16 at 17:30 Glucagon (Glucagen) 1 mg Q15M PRN IM DECREASED GLUCOSE; Start 08/13/16 at 17:30 Glucose (Glutose) 15 gm Q15M PRN BUCCAL DECREASED GLUCOSE; Start 08/13/16 at 17: 30 Mupirocin (Bactroban) 1 applic BID TOP Last administered on 08/24/16 08:32; Admin Dose 1 APPLIC; Start 08/15/16 at 13:00 Atorvastatin Calcium (Lipitor) 10 mg QHS PO Last administered on 08/23/16 20: 45; Admin Dose 10 MG; Start 08/15/16 at 21:00 Metoprolol Tartrate (Lopressor) 50 mg BID PO Last administered on 08/24/16 08: 31; Admin Dose 50 MG; Start 08/15/16 at 15:00 Diagnostic Test (Pha) (Accucheck) 1 ea 02 XX Last administered on 08/24/16 02: 24; Admin Dose 1 EA; Start 08/16/16 at 02:00 Methimazole (Tapazole) 20 mg DAILY PO Last administered on 08/24/16 08:32; Admin Dose 20 MG; Start 08/15/16 at 15:00 Linagliptin (Tradjenta) 5 mg DAILY PO Last administered on 08/24/16 08:31; Admin Dose 5 MG; Start 08/15/16 at 18:30 Rifampin 600 mg 600 mg DAILY PO Last administered on 08/24/16 08:32; Admin Dose 600 MG; Start 08/16/16 at 16:30 Ceftriaxone Sodium (Rocephin) 50 ml @ 100 mls/hr Q24H IVPB Last administered on 08/23/16 16:11; Admin Dose 100 MLS/HR; Start 08/16/16 at 15:30 IV Flush (NS 10 ml) 10 ml PRN PRN IV IV PROTOCOL; Start 08/16/16 at 15:30 Collagenase 1 applic 1 applic DAILY TOP Last administered on 08/24/16 08:32; Admin Dose 1 APPLIC; Start 08/17/16 at 09:00 Vancomycin HCl/ Sodium Chloride (Vancocin/NS) 250 ml @ 83.333 mls/ hr Q24H IVPB Last administered on 08/24/16 05:21; Admin Dose 83.333 MLS/HR; Start at 06:00 Pantoprazole (Protonix Tab) 40 mg DAILY@06 PO Last administered on 08/24/16 05 :20; Admin Dose 40 MG; Start 08/20/16 at 06:00 Diphenhydramine HCl (Benadryl) 25 mg Q6H PRN IV ITCHING Last administered on 04:22; Admin Dose 25 MG; Start 08/22/16 at 12:00 Fluconazole (Diflucan) 100 mg DAILY NGT Last administered on 08/24/16 08:30; Admin Dose 100 MG; Start 08/24/16 at 09:00 Loratadine (Claritin) 10 mg DAILY PO Last administered on 08/24/16 08:31; Admin Dose 10 MG; Start 08/23/16 at 14:30 Insulin Glargine (Lantus) 10 unit HS SC Last administered on 1/18/17at 20:47; Admin Dose 10 UNIT; Start 08/23/16 at 21:00 Miscellaneous Information VANCO TROUGH @ 0,500 ON... ONCE ONCE XX ; Start at 05:00; Stop 08/25/16 at 05:01 Magnesium Sulfate (Magnesium Sulfate 4 Gm/100 ml) 100 ml @ 25 mls/hr ONCE ONCE IVPB ; Start 08/24/16 at 15:30; Stop 08/24/16 at 19:29 MEG PETERSON Aug 24, 2016 15:24
[2016-08-24] MEDS ORDERED: MAGNESIUM SULFATE 4 GM/100 ML 100 ML IVPB ONE (15:30)
[2016-08-24] MEDS: CEFTRIAXONE 1 GM/50 ML (PMX) 50 ML IVPB SCH (15:55)
[2016-08-24] MEDS: BISACODYL (EC) 5 MG TAB PO PRN (17:10)
[2016-08-24] MEDS: SOD CHLORIDE 0.9% 1,000 ML IV SCH (17:47)
[2016-08-24] MEDS: INSULIN GLARGINE [LANtus] 3 ML PEN SC SCH (20:14)
[2016-08-24] MEDS: ATORVASTATIN 10 MG TAB PO SCH (20:15)
[2016-08-24 20:34] VITALS: BP 132/83; RESP 17
--- NOTE | 2016-08-24 22:01 | CONS ---
Date/Time of Note Date/Time of Note DATE: 08/24/16 TIME: 21:59 Assessment/Plan Assessment/Plan Additional Assessment/Plan Additional Assessment/Plan IMPRESSION: 1. Upper gastrointestinal bleeding, secondary to Faye-Johnson tear, also pt. had gastritis and nodular duodenitis 2. Hypertension. 3. Cerebrovascular accident. 4. Diabetes mellitus. 5. Hyperthyroidism. 6. Anemia.ht 24 now,no acute g.i. bleeding,rectal exam old black stool,no further bleeding 7. Sepsis with positive blood culture.MRSA,on antibiotics 8. Urinary tract infection. 9. edema upper extremity Plan no further bleeding,further drop in ht.secondary to hydration continue antibiotics monitor H&H continue PPI no anticoagulant Consultation Date/Type/Reason Admit Date/Time Aug 14, 2016 at 01:54 Initial Consult Date 08/15/16 Type of Consultation: cv Referring Provider: SÁNCHEZ WOMACK MD 24 HR Interval Summary Constitutional: no complaints Exam/Review of Systems Vital Signs Vitals Vital Signs Date Time Temp Pulse Resp B/P Pulse Ox O2 Delivery O2 Flow Rate FiO2 08/24/16 21:44 2.0 08/24/16 20:34 97.8 89 17 132/83 97 08/24/16 10:34 Nasal Cannula Intake and Output 08/23/16 08/23/16 08/24/16 15:00 23:00 07:00 Intake Total 383.333 ml 2460 ml 1470 ml Output Total 700 ml 2300 ml 1500 ml Balance -316.667 ml 160 ml -30 ml Exam Constitutional: alert, oriented, well developed Psych: nl mood/affect, no complaints Head: atraumatic, normocephalic Eyes: EOMI, PERRL, nl conjunctiva, nl lids, nl sclera ENMT: nl external ears & nose, nl lips & teeth, nl nasal mucosa & septum Neck: non-tender, supple Respiratory: clear to auscultation, normal air movement Cardiovascular: nl pulses, regular rate and rhythm Gastrointestinal: nl liver, spleen, non-tender, soft Musculoskeletal: nl extremities to inspection, nl gait and stance Extremities: normal pulses Neurological: [employer] II-XII intact, nl mental status, nl speech, nl strength Skin: nl turgor, No rash or lesions Lymph: nl lymph nodes Results Result Diagram: 1/19/17 0420 1/19/17 0420 Results 24 hrs Laboratory Tests Test 08/24/16 01:41 08/24/16 04:20 08/24/16 05:29 08/24/16 05:51 Bedside Glucose 80 57 L 118 Anion Gap 10 Basophils # 0.1 Basophils % 0.8 Blood Morphology Comment Blood Urea Nitrogen 9 Calcium Level 7.6 L Carbon Dioxide Level 27 Chloride Level 108 Creatinine 0.61 Eosinophils # 0.3 Eosinophils % 4.2 Glucose Level 49 #*L Hematocrit 24.9 L Hemoglobin 8.3 L Lymphocytes # 1.5 Lymphocytes % 24.0 Magnesium Level 1.5 L Mean Corpuscular Hemoglobin 29.0 Mean Corpuscular Hemoglobin Concent 33.1 Mean Corpuscular Volume 87.5 Mean Platelet Volume 9.0 Monocytes # 0.3 Monocytes % 4.9 Neutrophils # 4.2 Neutrophils % 66.1 Nucleated Red Blood Cells # 0.0 Nucleated Red Blood Cells % 0.0 Platelet Count 151 Potassium Level 4.2 Red Blood Count 2.84 L Red Cell Distribution Width 16.5 H Sodium Level 141 White Blood Count 6.4 Test 08/24/16 07:54 08/24/16 11:45 08/24/16 16:37 08/24/16 19:52 Bedside Glucose 75 155 144 172 Medications Medications Current Medications Sodium Chloride (NS) 1,000 ml @ 75 mls/hr [id number] IV Last administered on 08/24 17:47; Admin Dose 75 MLS/HR; Start 08/13/16 at 15:31 Lorazepam (Ativan) 0.5 mg Q6H PRN IV ANXIETY; Start 08/13/16 at 16:00 Ondansetron HCl (Zofran Inj) 4 mg Q6H PRN IV NAUSEA AND/OR VOMITING; Start 08/13 at 16:00 Nitroglycerin (Nitroglycerin (Sl Tab) 0.4 Mg) 1 tab Q5M PRN SL CHEST PAIN Last administered on 08/21/16 23:04; Admin Dose 1 TAB; Start 08/13/16 at 16:00 Acetaminophen (Tylenol Supp) 650 mg Q6H PRN [place] PAIN LEVEL 1-3 OR FEVER; Start 08/13/16 at 16:00 Morphine Sulfate (morphine) 2 mg Q4H PRN IV PAIN LEVEL 7-10 Last administered on 08/20/16 13:06; Admin Dose 2 MG; Start 08/13/16 at 16:00 Bisacodyl (Dulcolax) 5 mg DAILY PRN PO CONSTIPATION Last administered on 17:10; Admin Dose 5 MG; Start 08/13/16 at 16:00 Miscellaneous Information 1 ea NOTE XX ; Start 08/13/16 at 17:30 Glucose (Glutose) 15 gm Q15M PRN PO DECREASED GLUCOSE; Start 08/13/16 at 17:30 Glucose (Glutose) 22.5 gm Q15M PRN PO DECREASED GLUCOSE; Start 08/13/16 at 17:30 Dextrose (D50w Syringe) 25 ml Q15M PRN IV DECREASED GLUCOSE Last administered on 08/24/16 05:32; Admin Dose 25 ML; Start 08/13/16 at 17:30 Dextrose (D50w Syringe) 50 ml Q15M PRN IV DECREASED GLUCOSE Last administered on 08/23/16 06:16; Admin Dose 50 ML; Start 08/13/16 at 17:30 Glucagon (Glucagen) 1 mg Q15M PRN IM DECREASED GLUCOSE; Start 08/13/16 at 17:30 Glucose (Glutose) 15 gm Q15M PRN BUCCAL DECREASED GLUCOSE; Start 08/13/16 at 17: 30 Mupirocin (Bactroban) 1 applic BID TOP Last administered on 08/24/16 21:55; Admin Dose 1 APPLIC; Start 08/15/16 at 13:00 Atorvastatin Calcium (Lipitor) 10 mg QHS PO Last administered on 08/24/16 20: 15; Admin Dose 10 MG; Start 08/15/16 at 21:00 Metoprolol Tartrate (Lopressor) 50 mg BID PO Last administered on 08/24/16 20: 17; Admin Dose 50 MG; Start 08/15/16 at 15:00 Diagnostic Test (Pha) (Accucheck) 1 ea 02 XX Last administered on 08/24/16 02: 24; Admin Dose 1 EA; Start 08/16/16 at 02:00 Methimazole (Tapazole) 20 mg DAILY PO Last administered on 08/24/16 08:32; Admin Dose 20 MG; Start 08/15/16 at 15:00 Linagliptin (Tradjenta) 5 mg DAILY PO Last administered on 08/24/16 08:31; Admin Dose 5 MG; Start 08/15/16 at 18:30 Rifampin 600 mg 600 mg DAILY PO Last administered on 08/24/16 08:32; Admin Dose 600 MG; Start 08/16/16 at 16:30 Ceftriaxone Sodium (Rocephin) 50 ml @ 100 mls/hr Q24H IVPB Last administered on 08/24/16 15:55; Admin Dose 100 MLS/HR; Start 08/16/16 at 15:30 IV Flush (NS 10 ml) 10 ml PRN PRN IV IV PROTOCOL; Start 08/16/16 at 15:30 Collagenase 1 applic 1 applic DAILY TOP Last administered on 08/24/16 08:32; Admin Dose 1 APPLIC; Start 08/17/16 at 09:00 Vancomycin HCl/ Sodium Chloride (Vancocin/NS) 250 ml @ 83.333 mls/ hr Q24H IVPB Last administered on 08/24/16 05:21; Admin Dose 83.333 MLS/HR; Start at 06:00 Pantoprazole (Protonix Tab) 40 mg DAILY@06 PO Last administered on 08/24/16 05 :20; Admin Dose 40 MG; Start 08/20/16 at 06:00 Diphenhydramine HCl (Benadryl) 25 mg Q6H PRN IV ITCHING Last administered on 20:19; Admin Dose 25 MG; Start 08/22/16 at 12:00 Fluconazole (Diflucan) 100 mg DAILY NGT Last administered on 08/24/16 08:30; Admin Dose 100 MG; Start 08/24/16 at 09:00 Loratadine (Claritin) 10 mg DAILY PO Last administered on 08/24/16 08:31; Admin Dose 10 MG; Start 08/23/16 at 14:30 Insulin Glargine (Lantus) 10 unit HS SC Last administered on 08/24/16 20:14; Admin Dose 10 UNIT; Start 08/23/16 at 21:00 Miscellaneous Information (*Rx Drug Level Order Reminder*) VANCO TROUGH @ 0, 500 ON... ONCE ONCE XX ; Start 08/25/16 at 05:00; Stop 08/25/16 at 05:01 CHANCE QUEZADA MD Aug 24, 2016 22:01
[2016-08-25] MEDS: ACCUCHECK XX SCH (01:35)
[2016-08-25] MEDS: LORAZEPAM 2 MG INJ IV PRN (02:57)
[2016-08-25] MEDS: PANTOPRAZOLE (EC) 40 MG TAB PO SCH (05:41)
[2016-08-25 07:44] LABS: POTASSIUM 4.1 mmol/L (3.5-5.1)
[2016-08-25 07:47] LABS: CREATININE 0.61 mg/dl (0.44-1.00)
[2016-08-25 07:48] LABS: CALCIUM 7.6 mg/dl (8.4-10.2)
[2016-08-25] MEDS: INSULIN ASPART [NOVOLOG] 3 ML PEN SC SCH ×4 (08:00→21:00)
[2016-08-25 08:10] VITALS: BP 132/83; RESP 20
[2016-08-25] MEDS: FLUCONAZOLE 100 MG TAB NGT SCH (09:27)
[2016-08-25] MEDS: LINAGLIPTIN 5 MG TABLET PO SCH (09:27)
[2016-08-25] MEDS: RIFAMPIN 300 MG CAP PO SCH (09:27)
[2016-08-25] MEDS: LORATADINE 10 MG TAB PO SCH (09:27)
[2016-08-25] MEDS: METOPROLOL 50 MG TAB PO SCH ×2 (09:28→21:24)
[2016-08-25] MEDS: METHIMAZOLE 5 MG TAB PO SCH (09:28)
[2016-08-25] MEDS: SOD CHLORIDE 0.9% 1,000 ML IV SCH ×2 (09:29→20:51)
[2016-08-25] MEDS: VANCOMYCIN 1 GM in NS 250 ML IVPB SCH (09:29)
[2016-08-25] MEDS: COLLAGENASE 30 GM TUBE TOP SCH (09:30)
[2016-08-25] MEDS: MUPIROCIN 2% 22 GM OINT TOP SCH ×2 (09:30→21:25)
--- NOTE | 2016-08-25 11:53 | CONS ---
Date/Time of Note Date/Time of Note DATE: 08/25/16 TIME: 11:52 Assessment/Plan Assessment/Plan Additional Assessment/Plan Sepsis with positive blood cultures Atrial fibrillation with rapid ventricular rates, improved Acute blood loss anemia Preserved ejection fraction Hyperthyroidism History of congestive heart failure History of hypertension History of CVA GI bleed Diabetes -Would continue beta sha as blood pressure permits, heart rate trend appears stable. No anticoagulation secondary to recent GI bleed. DC planning Consultation Date/Type/Reason Admit Date/Time Aug 14, 2016 at 01:54 Initial Consult Date 08/15/16 Type of Consultation: cv Referring Provider: SÁNCHEZ WOMACK MD 24 HR Interval Summary Free Text/Dictation Denies shortness of breath, palpitations or chest pain Exam/Review of Systems Vital Signs Vitals Vital Signs Date Time Temp Pulse Resp B/P Pulse Ox O2 Delivery O2 Flow Rate FiO2 08/25/16 08:10 97.8 100 20 132/83 96 08/25/16 03:40 2.0 08/24/16 20:00 Nasal Cannula Intake and Output 08/24/16 08/24/16 08/25/16 15:00 23:00 07:00 Intake Total 1420 ml 360 ml Output Total 1350 ml 900 ml Balance 70 ml -540 ml Exam Following commands, no apparent distress Constitutional: alert Head: normocephalic Neck: supple Respiratory: other (course breath sounds bilaterally, no wheezing) Cardiovascular: irregular rhythm, other (S1 and S2 heard) Gastrointestinal: bowel sounds, non-tender, soft Extremities: edema Results Result Diagram: 08/24/16 0420 08/25/16 0440 Results 24 hrs Laboratory Tests Test 08/24/16 16:37 08/24/16 19:52 08/25/16 04:40 08/25/16 07:57 Bedside Glucose 144 172 111 Anion Gap 11 Blood Urea Nitrogen 8 Calcium Level 7.6 L Carbon Dioxide Level 25 Chloride Level 106 Creatinine 0.61 Free Thyroxine 2.20 H Glucose Level 92 # Magnesium Level 2.0 Potassium Level 4.1 Sodium Level 138 Thyroid Stimulating Hormone (TSH) 0.387 L Vancomycin Level Trough 18.5 Medications Medications Current Medications Sodium Chloride (NS) 1,000 ml @ 75 mls/hr [id number] IV Last administered on 08/25t 09:29; Admin Dose 75 MLS/HR; Start 08/13/16 at 15:31 Lorazepam (Ativan) 0.5 mg Q6H PRN IV ANXIETY Last administered on 08/25/16 02: 57; Admin Dose 0.5 MG; Start 08/13/16 at 16:00 Ondansetron HCl (Zofran Inj) 4 mg Q6H PRN IV NAUSEA AND/OR VOMITING; Start 08/13 at 16:00 Nitroglycerin (Nitroglycerin (Sl Tab) 0.4 Mg) 1 tab Q5M PRN SL CHEST PAIN Last administered on 08/21/16 23:04; Admin Dose 1 TAB; Start 08/13/16 at 16:00 Acetaminophen (Tylenol Supp) 650 mg Q6H PRN [place] PAIN LEVEL 1-3 OR FEVER; Start 08/13/16 at 16:00 Morphine Sulfate (morphine) 2 mg Q4H PRN IV PAIN LEVEL 7-10 Last administered on 08/20/16 13:06; Admin Dose 2 MG; Start 08/13/16 at 16:00 Bisacodyl (Dulcolax) 5 mg DAILY PRN PO CONSTIPATION Last administered on 17:10; Admin Dose 5 MG; Start 08/13/16 at 16:00 Miscellaneous Information 1 ea NOTE XX ; Start 08/13/16 at 17:30 Glucose (Glutose) 15 gm Q15M PRN PO DECREASED GLUCOSE; Start 08/13/16 at 17:30 Glucose (Glutose) 22.5 gm Q15M PRN PO DECREASED GLUCOSE; Start 08/13/16 at 17:30 Dextrose (D50w Syringe) 25 ml Q15M PRN IV DECREASED GLUCOSE Last administered on 08/24/16 05:32; Admin Dose 25 ML; Start 08/13/16 at 17:30 Dextrose (D50w Syringe) 50 ml Q15M PRN IV DECREASED GLUCOSE Last administered on 08/23/16 06:16; Admin Dose 50 ML; Start 08/13/16 at 17:30 Glucagon (Glucagen) 1 mg Q15M PRN IM DECREASED GLUCOSE; Start 08/13/16 at 17:30 Glucose (Glutose) 15 gm Q15M PRN BUCCAL DECREASED GLUCOSE; Start 08/13/16 at 17: 30 Mupirocin (Bactroban) 1 applic BID TOP Last administered on 08/25/16 09:30; Admin Dose 1 APPLIC; Start 08/15/16 at 13:00 Atorvastatin Calcium (Lipitor) 10 mg QHS PO Last administered on 08/24/16 20: 15; Admin Dose 10 MG; Start 08/15/16 at 21:00 Metoprolol Tartrate (Lopressor) 50 mg BID PO Last administered on 08/25/16 09: 28; Admin Dose 50 MG; Start 08/15/16 at 15:00 Diagnostic Test (Pha) (Accucheck) 1 ea 02 XX Last administered on 08/24/16 02: 24; Admin Dose 1 EA; Start 08/16/16 at 02:00 Methimazole (Tapazole) 20 mg DAILY PO Last administered on 08/25/16 09:28; Admin Dose 20 MG; Start 08/15/16 at 15:00 Linagliptin (Tradjenta) 5 mg DAILY PO Last administered on 08/25/16 09:27; Admin Dose 5 MG; Start 08/15/16 at 18:30 Rifampin 600 mg 600 mg DAILY PO Last administered on 08/25/16 09:27; Admin Dose 600 MG; Start 08/16/16 at 16:30 Ceftriaxone Sodium (Rocephin) 50 ml @ 100 mls/hr Q24H IVPB Last administered on 08/24/16 15:55; Admin Dose 100 MLS/HR; Start 08/16/16 at 15:30 IV Flush (NS 10 ml) 10 ml PRN PRN IV IV PROTOCOL; Start 08/16/16 at 15:30 Collagenase (Santyl) 1 applic DAILY TOP Last administered on 08/25/16 09:30; Admin Dose 1 APPLIC; Start 08/17/16 at 09:00 Pantoprazole (Protonix Tab) 40 mg DAILY@06 PO Last administered on 08/25/16 05 :41; Admin Dose 40 MG; Start 08/20/16 at 06:00 Diphenhydramine HCl (Benadryl) 25 mg Q6H PRN IV ITCHING Last administered on 20:19; Admin Dose 25 MG; Start 08/22/16 at 12:00 Fluconazole (Diflucan) 100 mg DAILY NGT Last administered on 08/25/16 09:27; Admin Dose 100 MG; Start 08/24/16 at 09:00 Loratadine (Claritin) 10 mg DAILY PO Last administered on 08/25/16 09:27; Admin Dose 10 MG; Start 08/23/16 at 14:30 Insulin Glargine 10 unit 10 unit HS SC Last administered on 08/24/16 20:14; Admin Dose 10 UNIT; Start 08/23/16 at 21:00 Vancomycin HCl (Vancocin) 250 ml @ 125 mls/hr Q24H IVPB Last administered on 09:29; Admin Dose 125 MLS/HR; Start 08/25/16 at 09:00 Shawn Lozada DO Aug 25, 2016 11:53
--- NOTE | 2016-08-25 12:41 | CONS ---
Date/Time of Note Date/Time of Note DATE: 08/25/16 TIME: 12:39 Consult Date/Type/Reason Admit Date/Time Aug 14, 2016 at 01:54 Initial Consult Date 08/15/16 Type of Consultation: id Ordering Provider: SÁNCHEZ WOMACK MD Subjective no acute changes, no fevers, nad Objective Vital Signs Date Time Temp Pulse Resp B/P Pulse Ox O2 Delivery O2 Flow Rate FiO2 08/25/16 08:10 97.8 100 20 132/83 96 08/25/16 03:40 2.0 08/24/16 20:00 Nasal Cannula Intake and Output 08/24/16 08/24/16 08/25/16 15:00 23:00 07:00 Intake Total 1420 ml 360 ml Output Total 1350 ml 900 ml Balance 70 ml -540 ml Results/Medications Result Diagram: 08/24/16 0420 08/25/16 0440 Results 24 hrs Laboratory Tests Test 08/24/16 16:37 08/24/16 19:52 08/25/16 04:40 08/25/16 07:57 Bedside Glucose 144 172 111 Anion Gap 11 Blood Urea Nitrogen 8 Calcium Level 7.6 L Carbon Dioxide Level 25 Chloride Level 106 Creatinine 0.61 Free Thyroxine 2.20 H Glucose Level 92 # Magnesium Level 2.0 Potassium Level 4.1 Sodium Level 138 Thyroid Stimulating Hormone (TSH) 0.387 L Vancomycin Level Trough 18.5 Test 08/25/16 11:45 Bedside Glucose 93 Medications Current Medications Sodium Chloride (NS) 1,000 ml @ 75 mls/hr [id number] IV Last administered on 08/25 09:29; Admin Dose 75 MLS/HR; Start 08/13/16 at 15:31 Lorazepam (Ativan) 0.5 mg Q6H PRN IV ANXIETY Last administered on 08/25/16 02: 57; Admin Dose 0.5 MG; Start 08/13/16 at 16:00 Ondansetron HCl (Zofran Inj) 4 mg Q6H PRN IV NAUSEA AND/OR VOMITING; Start 08/13 at 16:00 Nitroglycerin (Nitroglycerin (Sl Tab) 0.4 Mg) 1 tab Q5M PRN SL CHEST PAIN Last administered on 08/21/16 23:04; Admin Dose 1 TAB; Start 08/13/16 at 16:00 Acetaminophen (Tylenol Supp) 650 mg Q6H PRN [place] PAIN LEVEL 1-3 OR FEVER; Start 08/13/16 at 16:00 Morphine Sulfate (morphine) 2 mg Q4H PRN IV PAIN LEVEL 7-10 Last administered on 08/20/16 13:06; Admin Dose 2 MG; Start 08/13/16 at 16:00 Bisacodyl (Dulcolax) 5 mg DAILY PRN PO CONSTIPATION Last administered on 17:10; Admin Dose 5 MG; Start 08/13/16 at 16:00 Miscellaneous Information 1 ea NOTE XX ; Start 08/13/16 at 17:30 Glucose (Glutose) 15 gm Q15M PRN PO DECREASED GLUCOSE; Start 08/13/16 at 17:30 Glucose (Glutose) 22.5 gm Q15M PRN PO DECREASED GLUCOSE; Start 08/13/16 at 17:30 Dextrose (D50w Syringe) 25 ml Q15M PRN IV DECREASED GLUCOSE Last administered on 08/24/16 05:32; Admin Dose 25 ML; Start 08/13/16 at 17:30 Dextrose (D50w Syringe) 50 ml Q15M PRN IV DECREASED GLUCOSE Last administered on 08/23/16 06:16; Admin Dose 50 ML; Start 08/13/16 at 17:30 Glucagon (Glucagen) 1 mg Q15M PRN IM DECREASED GLUCOSE; Start 08/13/16 at 17:30 Glucose (Glutose) 15 gm Q15M PRN BUCCAL DECREASED GLUCOSE; Start 08/13/16 at 17: 30 Mupirocin (Bactroban) 1 applic BID TOP Last administered on 08/25/16 09:30; Admin Dose 1 APPLIC; Start 08/15/16 at 13:00 Atorvastatin Calcium (Lipitor) 10 mg QHS PO Last administered on 08/24/16 20: 15; Admin Dose 10 MG; Start 08/15/16 at 21:00 Metoprolol Tartrate (Lopressor) 50 mg BID PO Last administered on 08/25/16 09: 28; Admin Dose 50 MG; Start 08/15/16 at 15:00 Diagnostic Test (Pha) (Accucheck) 1 ea 02 XX Last administered on 08/24/16 02: 24; Admin Dose 1 EA; Start 08/16/16 at 02:00 Methimazole (Tapazole) 20 mg DAILY PO Last administered on 08/25/16 09:28; Admin Dose 20 MG; Start 08/15/16 at 15:00 Linagliptin (Tradjenta) 5 mg DAILY PO Last administered on 08/25/16 09:27; Admin Dose 5 MG; Start 08/15/16 at 18:30 Rifampin 600 mg 600 mg DAILY PO Last administered on 08/25/16 09:27; Admin Dose 600 MG; Start 08/16/16 at 16:30 Ceftriaxone Sodium (Rocephin) 50 ml @ 100 mls/hr Q24H IVPB Last administered on 08/24/16 15:55; Admin Dose 100 MLS/HR; Start 08/16/16 at 15:30 IV Flush (NS 10 ml) 10 ml PRN PRN IV IV PROTOCOL; Start 08/16/16 at 15:30 Collagenase (Santyl) 1 applic DAILY TOP Last administered on 08/25/16 09:30; Admin Dose 1 APPLIC; Start 08/17/16 at 09:00 Pantoprazole (Protonix Tab) 40 mg DAILY@06 PO Last administered on 08/25/16 05 :41; Admin Dose 40 MG; Start 08/20/16 at 06:00 Diphenhydramine HCl (Benadryl) 25 mg Q6H PRN IV ITCHING Last administered on 20:19; Admin Dose 25 MG; Start 08/22/16 at 12:00 Fluconazole (Diflucan) 100 mg DAILY NGT Last administered on 08/25/16 09:27; Admin Dose 100 MG; Start 08/24/16 at 09:00 Loratadine (Claritin) 10 mg DAILY PO Last administered on 08/25/16 09:27; Admin Dose 10 MG; Start 08/23/16 at 14:30 Insulin Glargine 10 unit 10 unit HS SC Last administered on 08/24/16 20:14; Admin Dose 10 UNIT; Start 08/23/16 at 21:00 Vancomycin HCl (Vancocin) 250 ml @ 125 mls/hr Q24H IVPB Last administered on 09:29; Admin Dose 125 MLS/HR; Start 08/25/16 at 09:00 Assessment/Plan Chief Complaint/Hosp Course MICROBIOLOGY: Blood culture growing MRSA. Urine culture growing E. coli and MRSA. Nares swab came back positive for MRSA. Wound culture growing MRSA/GNR/ yeast ANTIMICROBIALS: 1. Vancomycin. 2. Rifampin 3. Rocephin 4. Diflucan INDWELLINGS: Lundy catheter. PHYSICAL EXAMINATION: GENERAL: Fragile, elderly woman who is lying comfortably in bed. Patient is awake and follows commands. HEENT: Head atraumatic, normocephalic. Sclerae anicteric. Buccal mucosa dry. NECK: Supple, trachea midline. CHEST: Rise symmetrical. Breath sounds clear, diminished to bases. HEART: S1, S2. ABDOMEN: Soft. Bowel tones present. EXTREMITIES: Left upper extremity edema. The patient also has anasarca. ASSESSMENT: 1. S/p sepsis. 2. Methicillin-resistant Staphylococcus aureus bacteremia 2 to below. 3. Polymicrobial urinary tract infection with urine culture growing MRSA and E. coli. 4. Bilateral heel cellulitis with chronic wounds==> s/p debridement 5. Methicillin-resistant Staphylococcus aureus nares colonization. 6. Anemia, status post hematemesis and EGD that revealed Faye-Johnson tear and chronic gastritis. 7. History of atrial fibrillation and congestive heart failure. 8. History of cerebrovascular accident. 9. Diabetes. PLAN: The patient remains stable, repeat bld cx negative, continue abx for 2 more weeks, wound care per podiatry rec-s . [facility] Problems: DEMAR VILLALOBOS NP Aug 25, 2016 12:41
--- NOTE | 2016-08-25 15:22 | PN ---
Date/Time of Note Date/Time of Note DATE: 08/25/16 TIME: 15:21 Assessment/Plan VTE Prophylaxis VTE Prophylaxis Intervention: SCD's Assessment/Plan Chief Complaint/Hosp Course 1. Upper gastrointestinal bleeding. The patient was evaluated by gastroenterology. Esophagogastroduodenoscopy revealed a Faye-Johnson tear, chronic gastritis, and nodular duodenitis. Continue proton pump inhibitors. -no new e/o GIB per GI 2. Atrial fibrillation with rapid ventricular response. Currently, the rate is controlled. No anticoagulation because of underlying gastrointestinal bleed. Cardiology following. 3. Sepsis with underlying MRSA bacteremia, infected pressure ulcers, and urinary tract infection. Continue antibiotics. Infectious disease is on the case. -Repeat Blood cultures negative x 2 days, [facility], [facility]olation bed needed and her SNF does not have any available Isolation beds at this time 4. Infected right heel pressure ulcer. Seen and evaluated by podiatry, s/p local debridement. 5. Essential hypertension. Continue antihypertensives. 6. Peripheral vascular disease. Monitor for acute changes. Anticoagulation on hold because of current gastrointestinal bleed. 7. Dyslipidemia. Continue statins. Fasting lipid panel showing low HDL and low total cholesterol. 8. Type 2 diabetes mellitus. Hemoglobin A1c 9.8. Continue sliding scale insulin. 9. Left upper extremity edema. Left upper extremity venous Doppler study negative for any deep venous thrombosis. Continue elevation of left upper extremity. 10. Multiple pressure ulcers. Continue local wound care. Wound care consult. 11. Hyperthyroidism. The patient was started on methimazole. 12. MRSA colonization of the nares. Continue Bactroban. 13. Fluid, electrolytes and nutrition. Carbohydrate controlled, low- cholesterol diet. 14. DVT prophylaxis with serial sequential compression devices. No anticoagulation because of underlying GI bleed. 15. Gastrointestinal prophylaxis with proton pump inhibitors. Problems: Subjective 24 Hr Interval Summary Constitutional: no complaints Exam/Review of Systems Vital Signs Vitals Vital Signs Date Time Temp Pulse Resp B/P Pulse Ox O2 Delivery O2 Flow Rate FiO2 08/25/16 13:49 Nasal Cannula 2.0 08/25/16 08:10 97.8 100 20 132/83 96 Intake and Output 08/24/16 08/24/16 08/25/16 15:00 23:00 07:00 Intake Total 1420 ml 360 ml Output Total 1350 ml 900 ml Balance 70 ml -540 ml Exam Constitutional: alert Respiratory: clear to auscultation Cardiovascular: regular rate and rhythm Gastrointestinal: soft, No distended Musculoskeletal: No nl extremities to inspection Results Result Diagram: 08/24/16 0420 08/25/16 0440 Results 24 hrs Laboratory Tests Test 08/24/16 16:37 08/24/16 19:52 08/25/16 04:40 08/25/16 07:57 Bedside Glucose 144 172 111 Anion Gap 11 Blood Urea Nitrogen 8 Calcium Level 7.6 L Carbon Dioxide Level 25 Chloride Level 106 Creatinine 0.61 Free Thyroxine 2.20 H Glucose Level 92 # Magnesium Level 2.0 Potassium Level 4.1 Sodium Level 138 Thyroid Stimulating Hormone (TSH) 0.387 L Vancomycin Level Trough 18.5 Test 08/25/16 11:45 Bedside Glucose 93 Medications Medications Current Medications Sodium Chloride (NS) 1,000 ml @ 75 mls/hr [id number] IV Last administered on 08/25 09:29; Admin Dose 75 MLS/HR; Start 08/13/16 at 15:31 Lorazepam (Ativan) 0.5 mg Q6H PRN IV ANXIETY Last administered on 08/25/16 02: 57; Admin Dose 0.5 MG; Start 08/13/16 at 16:00 Ondansetron HCl (Zofran Inj) 4 mg Q6H PRN IV NAUSEA AND/OR VOMITING; Start 08/13 at 16:00 Nitroglycerin (Nitroglycerin (Sl Tab) 0.4 Mg) 1 tab Q5M PRN SL CHEST PAIN Last administered on 08/21/16 23:04; Admin Dose 1 TAB; Start 08/13/16 at 16:00 Acetaminophen (Tylenol Supp) 650 mg Q6H PRN [place] PAIN LEVEL 1-3 OR FEVER; Start 08/13/16 at 16:00 Morphine Sulfate (morphine) 2 mg Q4H PRN IV PAIN LEVEL 7-10 Last administered on 08/20/16 13:06; Admin Dose 2 MG; Start 08/13/16 at 16:00 Bisacodyl (Dulcolax) 5 mg DAILY PRN PO CONSTIPATION Last administered on 17:10; Admin Dose 5 MG; Start 08/13/16 at 16:00 Miscellaneous Information 1 ea NOTE XX ; Start 08/13/16 at 17:30 Glucose (Glutose) 15 gm Q15M PRN PO DECREASED GLUCOSE; Start 08/13/16 at 17:30 Glucose (Glutose) 22.5 gm Q15M PRN PO DECREASED GLUCOSE; Start 08/13/16 at 17:30 Dextrose (D50w Syringe) 25 ml Q15M PRN IV DECREASED GLUCOSE Last administered on 08/24/16 05:32; Admin Dose 25 ML; Start 08/13/16 at 17:30 Dextrose (D50w Syringe) 50 ml Q15M PRN IV DECREASED GLUCOSE Last administered on 08/23/16 06:16; Admin Dose 50 ML; Start 08/13/16 at 17:30 Glucagon (Glucagen) 1 mg Q15M PRN IM DECREASED GLUCOSE; Start 08/13/16 at 17:30 Glucose (Glutose) 15 gm Q15M PRN BUCCAL DECREASED GLUCOSE; Start 08/13/16 at 17: 30 Mupirocin (Bactroban) 1 applic BID TOP Last administered on 08/25/16 09:30; Admin Dose 1 APPLIC; Start 08/15/16 at 13:00 Atorvastatin Calcium (Lipitor) 10 mg QHS PO Last administered on 08/24/16 20: 15; Admin Dose 10 MG; Start 08/15/16 at 21:00 Metoprolol Tartrate (Lopressor) 50 mg BID PO Last administered on 08/25/16 09: 28; Admin Dose 50 MG; Start 08/15/16 at 15:00 Diagnostic Test (Pha) (Accucheck) 1 ea 02 XX Last administered on 08/24/16 02: 24; Admin Dose 1 EA; Start 08/16/16 at 02:00 Methimazole (Tapazole) 20 mg DAILY PO Last administered on 08/25/16 09:28; Admin Dose 20 MG; Start 08/15/16 at 15:00 Linagliptin (Tradjenta) 5 mg DAILY PO Last administered on 08/25/16 09:27; Admin Dose 5 MG; Start 08/15/16 at 18:30 Rifampin 600 mg 600 mg DAILY PO Last administered on 08/25/16 09:27; Admin Dose 600 MG; Start 08/16/16 at 16:30 Ceftriaxone Sodium (Rocephin) 50 ml @ 100 mls/hr Q24H IVPB Last administered on 08/24/16 15:55; Admin Dose 100 MLS/HR; Start 08/16/16 at 15:30 IV Flush (NS 10 ml) 10 ml PRN PRN IV IV PROTOCOL; Start 08/16/16 at 15:30 Collagenase (Santyl) 1 applic DAILY TOP Last administered on 08/25/16 09:30; Admin Dose 1 APPLIC; Start 08/17/16 at 09:00 Pantoprazole (Protonix Tab) 40 mg DAILY@06 PO Last administered on 08/25/16 05 :41; Admin Dose 40 MG; Start 08/20/16 at 06:00 Diphenhydramine HCl (Benadryl) 25 mg Q6H PRN IV ITCHING Last administered on 20:19; Admin Dose 25 MG; Start 08/22/16 at 12:00 Fluconazole (Diflucan) 100 mg DAILY NGT Last administered on 08/25/16 09:27; Admin Dose 100 MG; Start 08/24/16 at 09:00 Loratadine (Claritin) 10 mg DAILY PO Last administered on 08/25/16 09:27; Admin Dose 10 MG; Start 08/23/16 at 14:30 Insulin Glargine 10 unit 10 unit HS SC Last administered on 08/24/16 20:14; Admin Dose 10 UNIT; Start 08/23/16 at 21:00 Vancomycin HCl (Vancocin) 250 ml @ 125 mls/hr Q24H IVPB Last administered on 09:29; Admin Dose 125 MLS/HR; Start 08/25/16 at 09:00 MEG PETERSON Aug 25, 2016 15:22
[2016-08-25] MEDS: CEFTRIAXONE 1 GM/50 ML (PMX) 50 ML IVPB SCH (16:20)
[2016-08-25] MEDS: DIPHENHYDRAMINE 50 MG INJ IV PRN (16:20)
[2016-08-25 20:00] VITALS: BP 126/58; RESP 18
[2016-08-25] MEDS: ATORVASTATIN 10 MG TAB PO SCH (21:24)
[2016-08-25] MEDS: INSULIN GLARGINE [LANtus] 3 ML PEN SC SCH (21:27)
[2016-08-26] MEDS: ACCUCHECK XX SCH (02:00)
[2016-08-26] MEDS ORDERED: FUROSEMIDE 20 MG INJ IV ONE (05:50)
[2016-08-26] MEDS: PANTOPRAZOLE (EC) 40 MG TAB PO SCH (05:55)
[2016-08-26] MEDS: IPRATROPIUM (NEB) 0.5 MG/2.5 ML AMP HHN PRN ×2 (05:57→19:24)
[2016-08-26] MEDS: LEVALBUTEROL (NEB) 1.25 MG/0.5 ML AMP HHN PRN ×2 (05:57→19:24)
[2016-08-26] MEDS: INSULIN ASPART [NOVOLOG] 3 ML PEN SC SCH ×4 (08:00→20:40)
[2016-08-26 08:12] VITALS: BP 106/64; RESP 20
[2016-08-26] MEDS: METOPROLOL 50 MG TAB PO SCH ×2 (09:00→20:37)
[2016-08-26] MEDS: LORATADINE 10 MG TAB PO SCH (09:04)
[2016-08-26] MEDS: RIFAMPIN 300 MG CAP PO SCH (09:04)
[2016-08-26] MEDS: FLUCONAZOLE 100 MG TAB NGT SCH (09:04)
[2016-08-26] MEDS: LINAGLIPTIN 5 MG TABLET PO SCH (09:04)
[2016-08-26] MEDS: VANCOMYCIN 1 GM in NS 250 ML IVPB SCH (09:05)
[2016-08-26] MEDS: DIPHENHYDRAMINE 50 MG INJ IV PRN ×2 (09:05→17:32)
[2016-08-26] MEDS: MUPIROCIN 2% 22 GM OINT TOP SCH ×2 (09:15→20:37)
[2016-08-26] MEDS: COLLAGENASE 30 GM TUBE TOP SCH (09:15)
[2016-08-26] MEDS: METHIMAZOLE 5 MG TAB PO SCH (09:16)
--- NOTE | 2016-08-26 09:50 | CONS ---
Date/Time of Note Date/Time of Note DATE: 08/26/16 TIME: 09:48 Assessment/Plan Assessment/Plan Chief Complaint/Hosp Course 80-year-old female who is a resident of [facility] rehab. She was transferred for declining status. Please note I attempted to speak to the folks at the care home to clarify her medication list. The medication list that accompanied the patient does not have any type of thyroid hormone replacement therapy or any type of antithyroid drugs. She has a suppressed TSH with an elevated free T4 in the setting of extreme medical illness. Problems: (1) Hyperthyroidism Status: Chronic Comment: Patient is improving with medications. I would continue the current dosage and recheck the TSH in approximately 2 weeks. If it is coming to the normal range is anticipated then it should be rechecked roughly 6-8 weeks after that with CMP and CBC to assure no liver issues (unlikely) and no leukopenia ( very unlikely) Consultation Date/Type/Reason Admit Date/Time Aug 14, 2016 at 01:54 Initial Consult Date 08/15/16 Type of Consultation: Endocrinology Reason for Consultation Hyperthyroidism with atrial fibrillation and rapid ventricular response/ apathetic hyperthyroidism Referring Provider: SÁNCHEZ WOMACK MD Exam/Review of Systems Vital Signs Vitals Vital Signs Date Time Temp Pulse Resp B/P Pulse Ox O2 Delivery O2 Flow Rate FiO2 08/26/16 08:12 98.0 103 20 106/64 97 08/26/16 06:02 Nasal Cannula 3.0 Intake and Output 08/25/16 08/25/16 08/26/16 15:00 23:00 07:00 Intake Total 990 ml 1090 ml Output Total 1000 ml 650 ml Balance -10 ml 440 ml Results Result Diagram: 08/24/16 0420 08/25/16 0440 Results 24 hrs Laboratory Tests Test 08/25/16 11:45 08/25/16 17:03 08/25/16 21:21 08/26/16 07:23 Bedside Glucose 93 121 139 82 Medications Medications Current Medications Lorazepam (Ativan) 0.5 mg Q6H PRN IV ANXIETY Last administered on 08/25/16t 02: 57; Admin Dose 0.5 MG; Start 08/13/16 at 16:00 Ondansetron HCl (Zofran Inj) 4 mg Q6H PRN IV NAUSEA AND/OR VOMITING; Start 08/13 at 16:00 Nitroglycerin (Nitroglycerin (Sl Tab) 0.4 Mg) 1 tab Q5M PRN SL CHEST PAIN Last administered on 08/21/16 23:04; Admin Dose 1 TAB; Start 08/13/16 at 16:00 Acetaminophen (Tylenol Supp) 650 mg Q6H PRN [place] PAIN LEVEL 1-3 OR FEVER; Start 08/13/16 at 16:00 Morphine Sulfate (morphine) 2 mg Q4H PRN IV PAIN LEVEL 7-10 Last administered on 08/20/16 13:06; Admin Dose 2 MG; Start 08/13/16 at 16:00 Bisacodyl (Dulcolax) 5 mg DAILY PRN PO CONSTIPATION Last administered on 17:10; Admin Dose 5 MG; Start 08/13/16 at 16:00 Miscellaneous Information 1 ea NOTE XX ; Start 08/13/16 at 17:30 Glucose (Glutose) 15 gm Q15M PRN PO DECREASED GLUCOSE; Start 08/13/16 at 17:30 Glucose (Glutose) 22.5 gm Q15M PRN PO DECREASED GLUCOSE; Start 08/13/16 at 17:30 Dextrose (D50w Syringe) 25 ml Q15M PRN IV DECREASED GLUCOSE Last administered on 08/24/16 05:32; Admin Dose 25 ML; Start 08/13/16 at 17:30 Dextrose (D50w Syringe) 50 ml Q15M PRN IV DECREASED GLUCOSE Last administered on 08/23/16 06:16; Admin Dose 50 ML; Start 08/13/16 at 17:30 Glucagon (Glucagen) 1 mg Q15M PRN IM DECREASED GLUCOSE; Start 08/13/16 at 17:30 Glucose (Glutose) 15 gm Q15M PRN BUCCAL DECREASED GLUCOSE; Start 08/13/16 at 17: 30 Mupirocin (Bactroban) 1 applic BID TOP Last administered on 08/26/16 09:15; Admin Dose 1 APPLIC; Start 08/15/16 at 13:00 Atorvastatin Calcium (Lipitor) 10 mg QHS PO Last administered on 08/25/16 21: 24; Admin Dose 10 MG; Start 08/15/16 at 21:00 Metoprolol Tartrate (Lopressor) 50 mg BID PO Last administered on 08/25/16 21: 24; Admin Dose 50 MG; Start 08/15/16 at 15:00 Diagnostic Test (Pha) (Accucheck) 1 ea 02 XX Last administered on 08/24/16 02: 24; Admin Dose 1 EA; Start 08/16/16 at 02:00 Methimazole (Tapazole) 20 mg DAILY PO Last administered on 08/26/16 09:16; Admin Dose 20 MG; Start 08/15/16 at 15:00 Linagliptin (Tradjenta) 5 mg DAILY PO Last administered on 08/26/16 09:04; Admin Dose 5 MG; Start 08/15/16 at 18:30 Rifampin 600 mg 600 mg DAILY PO Last administered on 08/26/16 09:04; Admin Dose 600 MG; Start 08/16/16 at 16:30 Ceftriaxone Sodium (Rocephin) 50 ml @ 100 mls/hr Q24H IVPB Last administered on 08/25/16 16:20; Admin Dose 100 MLS/HR; Start 08/16/16 at 15:30 IV Flush (NS 10 ml) 10 ml PRN PRN IV IV PROTOCOL; Start 08/16/16 at 15:30 Collagenase (Santyl) 1 applic DAILY TOP Last administered on 08/26/16 09:15; Admin Dose 1 APPLIC; Start 08/17/16 at 09:00 Pantoprazole (Protonix Tab) 40 mg DAILY@06 PO Last administered on 08/26/16 05 :55; Admin Dose 40 MG; Start 08/20/16 at 06:00 Diphenhydramine HCl (Benadryl) 25 mg Q6H PRN IV ITCHING Last administered on 09:05; Admin Dose 25 MG; Start 08/22/16 at 12:00 Fluconazole (Diflucan) 100 mg DAILY NGT Last administered on 08/26/16 09:04; Admin Dose 100 MG; Start 08/24/16 at 09:00 Loratadine (Claritin) 10 mg DAILY PO Last administered on 08/26/16 09:04; Admin Dose 10 MG; Start 08/23/16 at 14:30 Insulin Glargine 10 unit 10 unit HS SC Last administered on 08/25/16 21:27; Admin Dose 10 UNIT; Start 08/23/16 at 21:00 Vancomycin HCl (Vancocin) 250 ml @ 125 mls/hr Q24H IVPB Last administered on t 09:05; Admin Dose 125 MLS/HR; Start 08/25/16 at 09:00 MINNIE GILES MD Aug 26, 2016 09:50
--- NOTE | 2016-08-26 13:56 | PN ---
Date/Time of Note Date/Time of Note DATE: 08/26/16 TIME: 13:55 Assessment/Plan VTE Prophylaxis VTE Prophylaxis Intervention: SCD's Assessment/Plan Chief Complaint/Hosp Course 1. Upper gastrointestinal bleeding. The patient was evaluated by gastroenterology. Esophagogastroduodenoscopy revealed a Faye-Johnson tear, chronic gastritis, and nodular duodenitis. Continue proton pump inhibitors. -no new e/o GIB per GI 2. Atrial fibrillation with rapid ventricular response. Currently, the rate is controlled. No anticoagulation because of underlying gastrointestinal bleed. Cardiology following. 3. Sepsis with underlying MRSA bacteremia, infected pressure ulcers, and urinary tract infection. Continue antibiotics. Infectious disease is on the case. -Repeat Blood cultures negative x 2 days, will [facility], Isolation bed needed and her SNF does not have any available Isolation beds at this time 4. Infected right heel pressure ulcer. Seen and evaluated by podiatry, s/p local debridement. 5. Essential hypertension. Continue antihypertensives. 6. Peripheral vascular disease. Monitor for acute changes. Anticoagulation on hold because of current gastrointestinal bleed. 7. Dyslipidemia. Continue statins. Fasting lipid panel showing low HDL and low total cholesterol. 8. Type 2 diabetes mellitus. Hemoglobin A1c 9.8. Continue sliding scale insulin. 9. Left upper extremity edema. Left upper extremity venous Doppler study negative for any deep venous thrombosis. Continue elevation of left upper extremity. 10. Multiple pressure ulcers. Continue local wound care. Wound care consult. 11. Hyperthyroidism. The patient was started on methimazole. 12. MRSA colonization of the nares. Continue Bactroban. 13. Fluid, electrolytes and nutrition. Carbohydrate controlled, low- cholesterol diet. 14. DVT prophylaxis with serial sequential compression devices. No anticoagulation because of underlying GI bleed. 15. Gastrointestinal prophylaxis with proton pump inhibitors. Problems: Subjective 24 Hr Interval Summary Constitutional: no complaints Exam/Review of Systems Vital Signs Vitals Vital Signs Date Time Temp Pulse Resp B/P Pulse Ox O2 Delivery O2 Flow Rate FiO2 08/26/16 10:55 Nasal Cannula 2.0 08/26/16 08:12 98.0 103 20 106/64 97 Intake and Output 08/25/16 08/25/16 08/26/16 15:00 23:00 07:00 Intake Total 990 ml 1090 ml Output Total 1000 ml 650 ml Balance -10 ml 440 ml Exam Constitutional: alert Respiratory: clear to auscultation Cardiovascular: regular rate and rhythm Gastrointestinal: soft, No distended Musculoskeletal: No nl extremities to inspection Results Result Diagram: 08/24/16 0420 08/25/16 0440 Results 24 hrs Laboratory Tests Test 08/25/16 17:03 08/25/16 21:21 08/26/16 07:23 08/26/16 12:11 Bedside Glucose 121 139 82 127 Medications Medications Current Medications Lorazepam (Ativan) 0.5 mg Q6H PRN IV ANXIETY Last administered on 08/25/16 02: 57; Admin Dose 0.5 MG; Start 08/13/16 at 16:00 Ondansetron HCl (Zofran Inj) 4 mg Q6H PRN IV NAUSEA AND/OR VOMITING; Start 08/13 at 16:00 Nitroglycerin (Nitroglycerin (Sl Tab) 0.4 Mg) 1 tab Q5M PRN SL CHEST PAIN Last administered on 08/21/16 23:04; Admin Dose 1 TAB; Start 08/13/16 at 16:00 Acetaminophen (Tylenol Supp) 650 mg Q6H PRN [place] PAIN LEVEL 1-3 OR FEVER; Start 08/13/16 at 16:00 Morphine Sulfate (morphine) 2 mg Q4H PRN IV PAIN LEVEL 7-10 Last administered on 08/20/16 13:06; Admin Dose 2 MG; Start 08/13/16 at 16:00 Bisacodyl (Dulcolax) 5 mg DAILY PRN PO CONSTIPATION Last administered on 17:10; Admin Dose 5 MG; Start 08/13/16 at 16:00 Miscellaneous Information 1 ea NOTE XX ; Start 08/13/16 at 17:30 Glucose (Glutose) 15 gm Q15M PRN PO DECREASED GLUCOSE; Start 08/13/16 at 17:30 Glucose (Glutose) 22.5 gm Q15M PRN PO DECREASED GLUCOSE; Start 08/13/16 at 17:30 Dextrose (D50w Syringe) 25 ml Q15M PRN IV DECREASED GLUCOSE Last administered on 08/24/16 05:32; Admin Dose 25 ML; Start 08/13/16 at 17:30 Dextrose (D50w Syringe) 50 ml Q15M PRN IV DECREASED GLUCOSE Last administered on 08/23/16 06:16; Admin Dose 50 ML; Start 08/13/16 at 17:30 Glucagon (Glucagen) 1 mg Q15M PRN IM DECREASED GLUCOSE; Start 08/13/16 at 17:30 Glucose (Glutose) 15 gm Q15M PRN BUCCAL DECREASED GLUCOSE; Start 08/13/16 at 17: 30 Mupirocin (Bactroban) 1 applic BID TOP Last administered on 08/26/16 09:15; Admin Dose 1 APPLIC; Start 08/15/16 at 13:00 Atorvastatin Calcium (Lipitor) 10 mg QHS PO Last administered on 08/25/16 21: 24; Admin Dose 10 MG; Start 08/15/16 at 21:00 Metoprolol Tartrate (Lopressor) 50 mg BID PO Last administered on 08/25/16 21: 24; Admin Dose 50 MG; Start 08/15/16 at 15:00 Diagnostic Test (Pha) (Accucheck) 1 ea 02 XX Last administered on 08/24/16 02: 24; Admin Dose 1 EA; Start 08/16/16 at 02:00 Methimazole (Tapazole) 20 mg DAILY PO Last administered on 08/26/16 09:16; Admin Dose 20 MG; Start 08/15/16 at 15:00 Linagliptin (Tradjenta) 5 mg DAILY PO Last administered on 08/26/16 09:04; Admin Dose 5 MG; Start 08/15/16 at 18:30 Rifampin 600 mg 600 mg DAILY PO Last administered on 08/26/16 09:04; Admin Dose 600 MG; Start 08/16/16 at 16:30 Ceftriaxone Sodium (Rocephin) 50 ml @ 100 mls/hr Q24H IVPB Last administered on 08/25/16 16:20; Admin Dose 100 MLS/HR; Start 08/16/16 at 15:30 IV Flush (NS 10 ml) 10 ml PRN PRN IV IV PROTOCOL; Start 08/16/16 at 15:30 Collagenase (Santyl) 1 applic DAILY TOP Last administered on 08/26/16 09:15; Admin Dose 1 APPLIC; Start 08/17/16 at 09:00 Pantoprazole (Protonix Tab) 40 mg DAILY@06 PO Last administered on 08/26/16 05 :55; Admin Dose 40 MG; Start 08/20/16 at 06:00 Diphenhydramine HCl (Benadryl) 25 mg Q6H PRN IV ITCHING Last administered on 09:05; Admin Dose 25 MG; Start 08/22/16 at 12:00 Fluconazole (Diflucan) 100 mg DAILY NGT Last administered on 08/26/16 09:04; Admin Dose 100 MG; Start 08/24/16 at 09:00 Loratadine (Claritin) 10 mg DAILY PO Last administered on 08/26/16 09:04; Admin Dose 10 MG; Start 08/23/16 at 14:30 Insulin Glargine 10 unit 10 unit HS SC Last administered on 08/25/16 21:27; Admin Dose 10 UNIT; Start 08/23/16 at 21:00 Vancomycin HCl (Vancocin) 250 ml @ 125 mls/hr Q24H IVPB Last administered on 09:05; Admin Dose 125 MLS/HR; Start 08/25/16 at 09:00 MEG PETERSON Aug 26, 2016 13:56
[2016-08-26] MEDS: CEFTRIAXONE 1 GM/50 ML (PMX) 50 ML IVPB SCH (17:32)
--- NOTE | 2016-08-26 17:44 | CONS ---
Date/Time of Note Date/Time of Note DATE: 08/26/16 TIME: 17:43 Consult Date/Type/Reason Admit Date/Time Aug 14, 2016 at 01:54 Initial Consult Date 08/15/16 Type of Consultation: id Ordering Provider: SÁNCHEZ WOMACK MD Subjective alert, feels good, son at bedside, no fevers, nad Objective Vital Signs Date Time Temp Pulse Resp B/P Pulse Ox O2 Delivery O2 Flow Rate FiO2 08/26/16 10:55 Nasal Cannula 2.0 08/26/16 08:12 98.0 103 20 106/64 97 Intake and Output 08/25/16 08/25/16 08/26/16 15:00 23:00 07:00 Intake Total 990 ml 1090 ml Output Total 1000 ml 650 ml Balance -10 ml 440 ml Results/Medications Result Diagram: 08/24/16 0420 08/25/16 0440 Results 24 hrs Laboratory Tests Test 08/25/16 21:21 08/26/16 07:23 08/26/16 12:11 08/26/16 17:04 Bedside Glucose 139 82 127 172 Medications Current Medications Lorazepam (Ativan) 0.5 mg Q6H PRN IV ANXIETY Last administered on 08/25/16 02: 57; Admin Dose 0.5 MG; Start 08/13/16 at 16:00 Ondansetron HCl (Zofran Inj) 4 mg Q6H PRN IV NAUSEA AND/OR VOMITING; Start 08/13 at 16:00 Nitroglycerin (Nitroglycerin (Sl Tab) 0.4 Mg) 1 tab Q5M PRN SL CHEST PAIN Last administered on 08/21/16 23:04; Admin Dose 1 TAB; Start 08/13/16 at 16:00 Acetaminophen (Tylenol Supp) 650 mg Q6H PRN [place] PAIN LEVEL 1-3 OR FEVER; Start 08/13/16 at 16:00 Morphine Sulfate (morphine) 2 mg Q4H PRN IV PAIN LEVEL 7-10 Last administered on 08/20/16 13:06; Admin Dose 2 MG; Start 08/13/16 at 16:00 Bisacodyl (Dulcolax) 5 mg DAILY PRN PO CONSTIPATION Last administered on 17:10; Admin Dose 5 MG; Start 08/13/16 at 16:00 Miscellaneous Information 1 ea NOTE XX ; Start 08/13/16 at 17:30 Glucose (Glutose) 15 gm Q15M PRN PO DECREASED GLUCOSE; Start 08/13/16 at 17:30 Glucose (Glutose) 22.5 gm Q15M PRN PO DECREASED GLUCOSE; Start 08/13/16 at 17:30 Dextrose (D50w Syringe) 25 ml Q15M PRN IV DECREASED GLUCOSE Last administered on 08/24/16 05:32; Admin Dose 25 ML; Start 08/13/16 at 17:30 Dextrose (D50w Syringe) 50 ml Q15M PRN IV DECREASED GLUCOSE Last administered on 08/23/16 06:16; Admin Dose 50 ML; Start 08/13/16 at 17:30 Glucagon (Glucagen) 1 mg Q15M PRN IM DECREASED GLUCOSE; Start 08/13/16 at 17:30 Glucose (Glutose) 15 gm Q15M PRN BUCCAL DECREASED GLUCOSE; Start 08/13/16 at 17: 30 Mupirocin (Bactroban) 1 applic BID TOP Last administered on 08/26/16 09:15; Admin Dose 1 APPLIC; Start 08/15/16 at 13:00 Atorvastatin Calcium (Lipitor) 10 mg QHS PO Last administered on 08/25/16 21: 24; Admin Dose 10 MG; Start 08/15/16 at 21:00 Metoprolol Tartrate (Lopressor) 50 mg BID PO Last administered on 08/25/16 21: 24; Admin Dose 50 MG; Start 08/15/16 at 15:00 Diagnostic Test (Pha) (Accucheck) 1 ea 02 XX Last administered on 08/24/16 02: 24; Admin Dose 1 EA; Start 08/16/16 at 02:00 Methimazole (Tapazole) 20 mg DAILY PO Last administered on 08/26/16 09:16; Admin Dose 20 MG; Start 08/15/16 at 15:00 Linagliptin (Tradjenta) 5 mg DAILY PO Last administered on 08/26/16 09:04; Admin Dose 5 MG; Start 08/15/16 at 18:30 Rifampin 600 mg 600 mg DAILY PO Last administered on 08/26/16 09:04; Admin Dose 600 MG; Start 08/16/16 at 16:30 Ceftriaxone Sodium (Rocephin) 50 ml @ 100 mls/hr Q24H IVPB Last administered on 08/26/16 17:32; Admin Dose 100 MLS/HR; Start 08/16/16 at 15:30 IV Flush (NS 10 ml) 10 ml PRN PRN IV IV PROTOCOL; Start 08/16/16 at 15:30 Collagenase (Santyl) 1 applic DAILY TOP Last administered on 08/26/16 09:15; Admin Dose 1 APPLIC; Start 08/17/16 at 09:00 Pantoprazole (Protonix Tab) 40 mg DAILY@06 PO Last administered on 08/26/16 05 :55; Admin Dose 40 MG; Start 08/20/16 at 06:00 Diphenhydramine HCl (Benadryl) 25 mg Q6H PRN IV ITCHING Last administered on 17:32; Admin Dose 25 MG; Start 08/22/16 at 12:00 Fluconazole (Diflucan) 100 mg DAILY NGT Last administered on 08/26/16 09:04; Admin Dose 100 MG; Start 08/24/16 at 09:00 Loratadine (Claritin) 10 mg DAILY PO Last administered on 08/26/16 09:04; Admin Dose 10 MG; Start 08/23/16 at 14:30 Insulin Glargine 10 unit 10 unit HS SC Last administered on 08/25/16 21:27; Admin Dose 10 UNIT; Start 08/23/16 at 21:00 Vancomycin HCl (Vancocin) 250 ml @ 125 mls/hr Q24H IVPB Last administered on 09:05; Admin Dose 125 MLS/HR; Start 08/25/16 at 09:00 Assessment/Plan Chief Complaint/Hosp Course MICROBIOLOGY: Blood culture growing MRSA. Urine culture growing E. coli and MRSA. Nares swab came back positive for MRSA. Wound culture growing MRSA/GNR/ yeast ANTIMICROBIALS: 1. Vancomycin. 2. Rifampin 3. Rocephin 4. Diflucan INDWELLINGS: Lundy catheter. PHYSICAL EXAMINATION: GENERAL: Fragile, elderly woman who is lying comfortably in bed. Patient is awake and follows commands. HEENT: Head atraumatic, normocephalic. Sclerae anicteric. Buccal mucosa dry. NECK: Supple, trachea midline. CHEST: Rise symmetrical. Breath sounds clear, diminished to bases. HEART: S1, S2. ABDOMEN: Soft. Bowel tones present. EXTREMITIES: Left upper extremity edema. The patient also has anasarca. ASSESSMENT: 1. S/p sepsis. 2. Methicillin-resistant Staphylococcus aureus bacteremia 2 to below. 3. Polymicrobial urinary tract infection with urine culture growing MRSA and E. coli. 4. Bilateral heel cellulitis with chronic wounds==> s/p debridement 5. Methicillin-resistant Staphylococcus aureus nares colonization. 6. Anemia, status post hematemesis and EGD that revealed Faye-Johnson tear and chronic gastritis. 7. History of atrial fibrillation and congestive heart failure. 8. History of cerebrovascular accident. 9. Diabetes. PLAN: The patient remains stable, repeat bld cx negative, continue abx for 10 more days, wound care per podiatry rec-s . DW staff DW son at bedside Problems: DEMAR VILLALOBOS NP Aug 26, 2016 17:44
[2016-08-26 20:11] VITALS: BP 133/55; RESP 20
[2016-08-26] MEDS: ATORVASTATIN 10 MG TAB PO SCH (20:36)
[2016-08-26] MEDS: INSULIN GLARGINE [LANtus] 3 ML PEN SC SCH (20:39)
[2016-08-26] MEDS: hydrOXYzine HCL 25 MG TAB PO PRN (21:28)
[2016-08-26] MEDS: ONDANSETRON 4 MG INJ IV PRN (21:31)
[2016-08-27] MEDS: ACCUCHECK XX SCH (02:02)
[2016-08-27] MEDS: DIPHENHYDRAMINE 50 MG INJ IV PRN ×3 (02:06→18:15)
[2016-08-27] MEDS: morphine 2 MG INJ IV PRN (03:23)
[2016-08-27] MEDS: hydrOXYzine HCL 25 MG TAB PO PRN ×2 (03:23→17:41)
[2016-08-27] MEDS: ONDANSETRON 4 MG INJ IV PRN (03:37)
[2016-08-27] MEDS: PANTOPRAZOLE (EC) 40 MG TAB PO SCH (05:29)
[2016-08-27 07:50] VITALS: BP 120/55; RESP 18
[2016-08-27] MEDS: RIFAMPIN 300 MG CAP PO SCH (08:50)
[2016-08-27] MEDS: MUPIROCIN 2% 22 GM OINT TOP SCH ×2 (08:50→21:06)
[2016-08-27] MEDS: INSULIN ASPART [NOVOLOG] 3 ML PEN SC SCH ×4 (08:50→21:08)
[2016-08-27] MEDS: FLUCONAZOLE 100 MG TAB NGT SCH (08:51)
[2016-08-27] MEDS: LINAGLIPTIN 5 MG TABLET PO SCH (08:51)
[2016-08-27] MEDS: LORATADINE 10 MG TAB PO SCH (08:51)
[2016-08-27] MEDS: METHIMAZOLE 5 MG TAB PO SCH (08:51)
[2016-08-27] MEDS: VANCOMYCIN 1 GM in NS 250 ML IVPB SCH (08:51)
[2016-08-27] MEDS: COLLAGENASE 30 GM TUBE TOP SCH (08:52)
[2016-08-27] MEDS: METOPROLOL 50 MG TAB PO SCH ×2 (08:52→21:05)
[2016-08-27] MEDS: BISACODYL (EC) 5 MG TAB PO PRN (12:18)
[2016-08-27] MEDS: CEFTRIAXONE 1 GM/50 ML (PMX) 50 ML IVPB SCH (14:53)
--- NOTE | 2016-08-27 15:01 | CONS ---
Date/Time of Note Date/Time of Note DATE: 08/27/16 TIME: 15:00 Consult Date/Type/Reason Admit Date/Time Aug 14, 2016 at 01:54 Initial Consult Date 08/15/16 Type of Consultation: id Ordering Provider: SÁNCHEZ WOMACK MD Subjective sleeping, no fevers, nad Objective Vital Signs Date Time Temp Pulse Resp B/P Pulse Ox O2 Delivery O2 Flow Rate FiO2 08/27/16 09:08 Nasal Cannula 2.0 08/27/16 07:50 97.8 107 18 120/55 100 Intake and Output 08/26/16 08/26/16 08/27/16 15:00 23:00 07:00 Intake Total 250 ml 550 ml 150 ml Output Total 1500 ml 600 ml Balance 250 ml -950 ml -450 ml Results/Medications Result Diagram: 08/24/16 0420 08/25/16 0440 Results 24 hrs Laboratory Tests Test 08/26/16 17:04 08/26/16 20:11 08/27/16 01:55 08/27/16 07:54 Bedside Glucose 172 208 171 170 Test 08/27/16 11:19 Bedside Glucose 200 Medications Current Medications Lorazepam (Ativan) 0.5 mg Q6H PRN IV ANXIETY Last administered on 08/25/16 02: 57; Admin Dose 0.5 MG; Start 08/13/16 at 16:00 Ondansetron HCl (Zofran Inj) 4 mg Q6H PRN IV NAUSEA AND/OR VOMITING Last administered on 08/27/16 03:37; Admin Dose 4 MG; Start 08/13/16 at 16:00 Nitroglycerin (Nitroglycerin (Sl Tab) 0.4 Mg) 1 tab Q5M PRN SL CHEST PAIN Last administered on 08/21/16 23:04; Admin Dose 1 TAB; Start 08/13/16 at 16:00 Acetaminophen (Tylenol Supp) 650 mg Q6H PRN [place] PAIN LEVEL 1-3 OR FEVER; Start 08/13/16 at 16:00 Morphine Sulfate (morphine) 2 mg Q4H PRN [place] PAIN LEVEL 7-10 Last administered on 08/27/16 03:23; Admin Dose 2 MG; Start 08/13/16 at 16:00 Bisacodyl (Dulcolax) 5 mg DAILY PRN PO CONSTIPATION Last administered on 12:18; Admin Dose 5 MG; Start 08/13/16 at 16:00 Miscellaneous Information 1 ea NOTE XX ; Start 08/13/16 at 17:30 Glucose (Glutose) 15 gm Q15M PRN PO DECREASED GLUCOSE; Start 08/13/16 at 17:30 Glucose (Glutose) 22.5 gm Q15M PRN PO DECREASED GLUCOSE; Start 08/13/16 at 17:30 Dextrose (D50w Syringe) 25 ml Q15M PRN IV DECREASED GLUCOSE Last administered on 08/24/16 05:32; Admin Dose 25 ML; Start 08/13/16 at 17:30 Dextrose (D50w Syringe) 50 ml Q15M PRN IV DECREASED GLUCOSE Last administered on 08/23/16 06:16; Admin Dose 50 ML; Start 08/13/16 at 17:30 Glucagon (Glucagen) 1 mg Q15M PRN IM DECREASED GLUCOSE; Start 08/13/16 at 17:30 Glucose (Glutose) 15 gm Q15M PRN BUCCAL DECREASED GLUCOSE; Start 08/13/16 at 17: 30 Mupirocin (Bactroban) 1 applic BID TOP Last administered on 08/27/16 08:50; Admin Dose 1 APPLIC; Start 08/15/16 at 13:00 Atorvastatin Calcium (Lipitor) 10 mg QHS PO Last administered on 08/26/16 20: 36; Admin Dose 10 MG; Start 08/15/16 at 21:00 Metoprolol Tartrate (Lopressor) 50 mg BID PO Last administered on 08/27/16 08: 52; Admin Dose 50 MG; Start 08/15/16 at 15:00 Diagnostic Test (Pha) (Accucheck) 1 ea 02 XX Last administered on 08/27/16 02: 02; Admin Dose 1 EA; Start 08/16/16 at 02:00 Methimazole (Tapazole) 20 mg DAILY PO Last administered on 08/27/16 08:51; Admin Dose 20 MG; Start 08/15/16 at 15:00 Linagliptin (Tradjenta) 5 mg DAILY PO Last administered on 08/27/16 08:51; Admin Dose 5 MG; Start 08/15/16 at 18:30 Rifampin 600 mg 600 mg DAILY PO Last administered on 08/27/16 08:50; Admin Dose 600 MG; Start 08/16/16 at 16:30 Ceftriaxone Sodium (Rocephin) 50 ml @ 100 mls/hr Q24H IVPB Last administered on 08/27/16 14:53; Admin Dose 100 MLS/HR; Start 08/16/16 at 15:30 IV Flush (NS 10 ml) 10 ml PRN PRN IV IV PROTOCOL; Start 08/16/16 at 15:30 Collagenase (Santyl) 1 applic DAILY TOP Last administered on 08/27/16 08:52; Admin Dose 1 APPLIC; Start 08/17/16 at 09:00 Pantoprazole (Protonix Tab) 40 mg DAILY@06 PO Last administered on 08/27/16 05 :29; Admin Dose 40 MG; Start 08/20/16 at 06:00 Diphenhydramine HCl (Benadryl) 25 mg Q6H PRN IV ITCHING Last administered on 08:48; Admin Dose 25 MG; Start 08/22/16 at 12:00 Fluconazole (Diflucan) 100 mg DAILY NGT Last administered on 08/27/16 08:51; Admin Dose 100 MG; Start 08/24/16 at 09:00 Loratadine (Claritin) 10 mg DAILY PO Last administered on 08/27/16 08:51; Admin Dose 10 MG; Start 08/23/16 at 14:30 Insulin Glargine 10 unit 10 unit HS SC Last administered on 08/26/16 20:39; Admin Dose 10 UNIT; Start 08/23/16 at 21:00 Vancomycin HCl (Vancocin) 250 ml @ 125 mls/hr Q24H IVPB Last administered on 08:51; Admin Dose 125 MLS/HR; Start 08/25/16 at 09:00 Hydroxyzine HCl (Atarax) 25 mg Q6H PRN PO ITCHING Last administered on 03:23; Admin Dose 25 MG; Start 08/26/16 at 21:00 Miscellaneous Information (*Rx Drug Level Order Reminder*) VANCOMYCIN TROUGH AT 0800 ONCE ONCE XX ; Start 08/28/16 at 08:00; Stop 08/28/16 at 08:01 Assessment/Plan Chief Complaint/Hosp Course MICROBIOLOGY: Blood cultures on admission grew MRSA. Urine culture grew E. coli and MRSA. Nares swab came back positive for MRSA. Wound culture growing MRSA/GNR/yeast ANTIMICROBIALS: 1. Vancomycin. 2. Rifampin 3. Rocephin 4. Diflucan INDWELLINGS: Lundy catheter. PHYSICAL EXAMINATION: GENERAL: Fragile, elderly woman who is lying comfortably in bed. Patient is awake and follows commands. HEENT: Head atraumatic, normocephalic. Sclerae anicteric. Buccal mucosa dry. NECK: Supple, trachea midline. CHEST: Rise symmetrical. Breath sounds clear, diminished to bases. HEART: S1, S2. ABDOMEN: Soft. Bowel tones present. EXTREMITIES: Left upper extremity edema. The patient also has anasarca. ASSESSMENT: 1. S/p sepsis. 2. Methicillin-resistant Staphylococcus aureus bacteremia 2 to below. 3. Polymicrobial urinary tract infection with urine culture growing MRSA and E. coli. 4. Bilateral heel cellulitis with chronic wounds==> s/p debridement 5. Methicillin-resistant Staphylococcus aureus nares colonization. 6. Anemia, status post hematemesis and EGD that revealed Faye-Johnson tear and chronic gastritis. 7. History of atrial fibrillation and congestive heart failure. 8. History of cerebrovascular accident. 9. Diabetes. PLAN: The patient remains stable, repeat bld cx negative, continue abx for 9 more days, wound care per podiatry rec-s, roxana planning [facility] staff Problems: DEMAR VILLALOBOS NP Aug 27, 2016 15:01
[2016-08-27 18:10] VITALS: BP 135/86; PULSE 95; RESP 18
--- NOTE | 2016-08-27 18:24 | PN ---
Date/Time of Note Date/Time of Note DATE: 08/27/16 TIME: 18:24 Assessment/Plan VTE Prophylaxis VTE Prophylaxis Intervention: SCD's Assessment/Plan Chief Complaint/Hosp Course 1. Upper gastrointestinal bleeding. The patient was evaluated by gastroenterology. Esophagogastroduodenoscopy revealed a Faye-Johnson tear, chronic gastritis, and nodular duodenitis. Continue proton pump inhibitors. -no new e/o GIB per GI 2. Atrial fibrillation with rapid ventricular response. Currently, the rate is controlled. No anticoagulation because of underlying gastrointestinal bleed. Cardiology following. 3. Sepsis with underlying MRSA bacteremia, infected pressure ulcers, and urinary tract infection. Continue antibiotics. Infectious disease is on the case. -Repeat Blood cultures negative x 2 days, will need to continue [facility]com[facility] at the [facility] week, Isolation bed needed and her SNF does not have any available Isolation beds at this time 4. Infected right heel pressure ulcer. Seen and evaluated by podiatry, s/p local debridement. 5. Essential hypertension. Continue antihypertensives. 6. Peripheral vascular disease. Monitor for acute changes. Anticoagulation on hold because of current gastrointestinal bleed. 7. Dyslipidemia. Continue statins. Fasting lipid panel showing low HDL and low total cholesterol. 8. Type 2 diabetes mellitus. Hemoglobin A1c 9.8. Continue sliding scale insulin. 9. Left upper extremity edema. Left upper extremity venous Doppler study negative for any deep venous thrombosis. Continue elevation of left upper extremity. 10. Multiple pressure ulcers. Continue local wound care. Wound care consult. 11. Hyperthyroidism. The patient was started on methimazole. 12. MRSA colonization of the nares. Continue Bactroban. 13. Fluid, electrolytes and nutrition. Carbohydrate controlled, low- cholesterol diet. 14. DVT prophylaxis with serial sequential compression devices. No anticoagulation because of underlying GI bleed. 15. Gastrointestinal prophylaxis with proton pump inhibitors. Problems: Subjective 24 Hr Interval Summary Constitutional: no complaints Exam/Review of Systems Vital Signs Vitals Vital Signs Date Time Temp Pulse Resp B/P Pulse Ox O2 Delivery O2 Flow Rate FiO2 08/27/16 18:10 97.8 95 18 135/86 94 Nasal Cannula 2.0 Intake and Output 08/26/16 08/26/16 08/27/16 15:00 23:00 07:00 Intake Total 250 ml 550 ml 150 ml Output Total 1500 ml 600 ml Balance 250 ml -950 ml -450 ml Exam Constitutional: alert Respiratory: clear to auscultation Cardiovascular: regular rate and rhythm Gastrointestinal: soft, No distended Musculoskeletal: No nl extremities to inspection Results Result Diagram: 08/24/16 0420 08/25/16 0440 Results 24 hrs Laboratory Tests Test 08/26/16 20:11 08/27/16 01:55 08/27/16 07:54 08/27/16 11:19 Bedside Glucose 208 171 170 200 Test 08/27/16 17:24 Bedside Glucose 203 Medications Medications Current Medications Lorazepam (Ativan) 0.5 mg Q6H PRN IV ANXIETY Last administered on 08/25/16 02: 57; Admin Dose 0.5 MG; Start 08/13/16 at 16:00 Ondansetron HCl (Zofran Inj) 4 mg Q6H PRN IV NAUSEA AND/OR VOMITING Last administered on 08/27/16 03:37; Admin Dose 4 MG; Start 08/13/16 at 16:00 Nitroglycerin (Nitroglycerin (Sl Tab) 0.4 Mg) 1 tab Q5M PRN SL CHEST PAIN Last administered on 08/21/16 23:04; Admin Dose 1 TAB; Start 08/13/16 at 16:00 Acetaminophen (Tylenol Supp) 650 mg Q6H PRN [place] PAIN LEVEL 1-3 OR FEVER; Start 08/13/16 at 16:00 Morphine Sulfate (morphine) 2 mg Q4H PRN IV PAIN LEVEL 7-10 Last administered on 08/27/16 03:23; Admin Dose 2 MG; Start 08/13/16 at 16:00 Bisacodyl (Dulcolax) 5 mg DAILY PRN PO CONSTIPATION Last administered on 12:18; Admin Dose 5 MG; Start 08/13/16 at 16:00 Miscellaneous Information 1 ea NOTE XX ; Start 08/13/16 at 17:30 Glucose (Glutose) 15 gm Q15M PRN PO DECREASED GLUCOSE; Start 08/13/16 at 17:30 Glucose (Glutose) 22.5 gm Q15M PRN PO DECREASED GLUCOSE; Start 08/13/16 at 17:30 Dextrose (D50w Syringe) 25 ml Q15M PRN IV DECREASED GLUCOSE Last administered on 08/24/16 05:32; Admin Dose 25 ML; Start 08/13/16 at 17:30 Dextrose (D50w Syringe) 50 ml Q15M PRN IV DECREASED GLUCOSE Last administered on 08/23/16 06:16; Admin Dose 50 ML; Start 08/13/16 at 17:30 Glucagon (Glucagen) 1 mg Q15M PRN IM DECREASED GLUCOSE; Start 08/13/16 at 17:30 Glucose (Glutose) 15 gm Q15M PRN BUCCAL DECREASED GLUCOSE; Start 08/13/16 at 17: 30 Mupirocin (Bactroban) 1 applic BID TOP Last administered on 08/27/16 08:50; Admin Dose 1 APPLIC; Start 08/15/16 at 13:00 Atorvastatin Calcium (Lipitor) 10 mg QHS PO Last administered on 08/26/16 20: 36; Admin Dose 10 MG; Start 08/15/16 at 21:00 Metoprolol Tartrate (Lopressor) 50 mg BID PO Last administered on 08/27/16 08: 52; Admin Dose 50 MG; Start 08/15/16 at 15:00 Diagnostic Test (Pha) (Accucheck) 1 ea 02 XX Last administered on 08/27/16 02: 02; Admin Dose 1 EA; Start 08/16/16 at 02:00 Methimazole (Tapazole) 20 mg DAILY PO Last administered on 08/27/16 08:51; Admin Dose 20 MG; Start 08/15/16 at 15:00 Linagliptin (Tradjenta) 5 mg DAILY PO Last administered on 08/27/16 08:51; Admin Dose 5 MG; Start 08/15/16 at 18:30 Rifampin 600 mg 600 mg DAILY PO Last administered on 08/27/16 08:50; Admin Dose 600 MG; Start 08/16/16 at 16:30 Ceftriaxone Sodium (Rocephin) 50 ml @ 100 mls/hr Q24H IVPB Last administered on 08/27/16 14:53; Admin Dose 100 MLS/HR; Start 08/16/16 at 15:30 IV Flush (NS 10 ml) 10 ml PRN PRN IV IV PROTOCOL; Start 08/16/16 at 15:30 Collagenase (Santyl) 1 applic DAILY TOP Last administered on 08/27/16 08:52; Admin Dose 1 APPLIC; Start 08/17/16 at 09:00 Pantoprazole (Protonix Tab) 40 mg DAILY@06 PO Last administered on 08/27/16 05 :29; Admin Dose 40 MG; Start 08/20/16 at 06:00 Diphenhydramine HCl (Benadryl) 25 mg Q6H PRN IV ITCHING Last administered on 18:15; Admin Dose 25 MG; Start 08/22/16 at 12:00 Fluconazole (Diflucan) 100 mg DAILY NGT Last administered on 08/27/16 08:51; Admin Dose 100 MG; Start 08/24/16 at 09:00 Loratadine (Claritin) 10 mg DAILY PO Last administered on 08/27/16 08:51; Admin Dose 10 MG; Start 08/23/16 at 14:30 Insulin Glargine 10 unit 10 unit HS SC Last administered on 08/26/16 20:39; Admin Dose 10 UNIT; Start 08/23/16 at 21:00 Vancomycin HCl (Vancocin) 250 ml @ 125 mls/hr Q24H IVPB Last administered on 08:51; Admin Dose 125 MLS/HR; Start 08/25/16 at 09:00 Hydroxyzine HCl (Atarax) 25 mg Q6H PRN PO ITCHING Last administered on 17:41; Admin Dose 25 MG; Start 08/26/16 at 21:00 Miscellaneous Information (*Rx Drug Level Order Reminder*) VANCOMYCIN TROUGH AT 0800 ONCE ONCE XX ; Start 08/28/16 at 08:00; Stop 08/28/16 at 08:01 MEG PETERSON Aug 27, 2016 18:24
[2016-08-27 20:44] VITALS: BP 123/78; RESP 20
[2016-08-27] MEDS: ATORVASTATIN 10 MG TAB PO SCH (21:04)
[2016-08-27] MEDS: INSULIN GLARGINE [LANtus] 3 ML PEN SC SCH (21:08)
[2016-08-28] MEDS: ACCUCHECK XX SCH (02:16)
[2016-08-28] MEDS: PANTOPRAZOLE (EC) 40 MG TAB PO SCH (06:34)
[2016-08-28 07:12] LABS: CREATININE 0.66 mg/dl (0.44-1.00)
[2016-08-28 08:21] VITALS: BP 81/66; RESP 18
[2016-08-28] MEDS: VANCOMYCIN 1 GM in NS 250 ML IVPB SCH (08:33)
[2016-08-28] MEDS: LORATADINE 10 MG TAB PO SCH (08:34)
[2016-08-28] MEDS: LINAGLIPTIN 5 MG TABLET PO SCH (08:34)
[2016-08-28] MEDS: METHIMAZOLE 5 MG TAB PO SCH (08:34)
[2016-08-28] MEDS: FLUCONAZOLE 100 MG TAB NGT SCH (08:34)
[2016-08-28] MEDS: COLLAGENASE 30 GM TUBE TOP SCH (08:34)
[2016-08-28] MEDS: RIFAMPIN 300 MG CAP PO SCH (08:34)
[2016-08-28] MEDS: MUPIROCIN 2% 22 GM OINT TOP SCH ×2 (08:34→21:49)
[2016-08-28 09:00] VITALS: BP 125/64; PULSE 86; RESP 20
[2016-08-28] MEDS: METOPROLOL 50 MG TAB PO SCH ×2 (09:00→21:49)
[2016-08-28] MEDS: INSULIN ASPART [NOVOLOG] 3 ML PEN SC SCH ×4 (09:12→21:00)
--- NOTE | 2016-08-28 11:49 | PN ---
Date/Time of Note Date/Time of Note DATE: 08/28/16 TIME: 11:47 Assessment/Plan VTE Prophylaxis VTE Prophylaxis Intervention: SCD's Lines/Catheters Central line still needed: Yes Assessment/Plan Chief Complaint/Hosp Course 1. Upper gastrointestinal bleeding. The patient was evaluated by gastroenterology. Esophagogastroduodenoscopy revealed a Faye-Johnson tear, chronic gastritis, and nodular duodenitis. Continue proton pump inhibitors. 2. Atrial fibrillation with rapid ventricular response. Currently, the rate is controlled. No anticoagulation because of underlying gastrointestinal bleed. Cardiology following. 3. Sepsis with underlying MRSA bacteremia, infected pressure ulcers, and urinary tract infection. Continue antibiotics. Infectious disease is on the case. 4. Infected B/L heel pressure ulcers. Seen and evaluated by podiatry. S/P local debridement of the left heel ulcer on 08/20/2016. 5. Essential hypertension. Continue antihypertensives. 6. Peripheral vascular disease. Monitor for acute changes. Anticoagulation on hold because of current gastrointestinal bleed. 7. Dyslipidemia. Continue statins. Fasting lipid panel showing low HDL and low total cholesterol. 8. Type 2 diabetes mellitus. Hemoglobin A1c 9.8. Continue sliding scale insulin. 9. Left upper extremity edema. Largely resolved. Left upper extremity venous Doppler study negative for any deep venous thrombosis. Continue elevation of left upper extremity. 10. Multiple pressure ulcers. Continue local wound care. Wound care consult. 11. Hyperthyroidism. The patient was started on methimazole. 12. MRSA colonization of the nares. Continue Bactroban. 13. Fluid, electrolytes and nutrition. Carbohydrate controlled, low- cholesterol diet. 14. DVT prophylaxis with serial sequential compression devices. No anticoagulation because of underlying GI bleed. 15. Gastrointestinal prophylaxis with proton pump inhibitors. PLAN: Continue antibiotics as per infectious diseases. Continue in-house monitoring. Case discussed with Dr. Ying. Problems: Subjective 24 Hr Interval Summary Free Text/Dictation Complains of generalized pruritus. Exam/Review of Systems Vital Signs Vitals Vital Signs Date Time Temp Pulse Resp B/P Pulse Ox O2 Delivery O2 Flow Rate FiO2 08/28/16 08:21 97.4 89 18 81/66 98 08/28/16 00:32 2.0 08/27/16 18:10 Nasal Cannula Intake and Output 08/27/16 08/27/16 08/28/16 15:00 23:00 07:00 Intake Total 1090 ml 50 ml 550 ml Output Total 900 ml 300 ml 800 ml Balance 190 ml -250 ml -250 ml Exam GENERAL: This is a frail-looking elderly female lying in bed in no apparent distress. HEENT: Head normocephalic and atraumatic. Eyes: Anicteric sclerae. Conjunctivae clear. ENT: Nasal septum is midline. Oral mucosa is dry. NECK: Supple. No JVD noticed. RESPIRATORY: Bilaterally diminished breath sounds. No adventitious breath sounds. No use of accessory muscles of respiration. CARDIAC: Irregularly irregular rhythm. Systolic murmur. ABDOMEN: Soft, nontender and nondistended. Bowel sounds hypoactive in all 4 quadrants. GENITOURINARY: Deferred. EXTREMITIES: No cyanosis, no clubbing. Bilateral lower extremity 1 to 2+ pitting edema. Left upper extremity 2 to 3+ pitting edema. Left upper extremity tenderness upon palpation. Peripheral pulses are diminished. NEUROLOGIC: The patient is awake and alert and oriented x1 to 2. Results Result Diagram: 08/24/16 0420 08/28/16 0530 Results 24 hrs Laboratory Tests Test 08/27/16 17:24 08/27/16 21:00 08/28/16 02:07 08/28/16 05:30 Bedside Glucose 203 214 170 Blood Urea Nitrogen 8 Creatinine 0.66 Test 08/28/16 08:10 08/28/16 08:24 Vancomycin Level Trough 15.4 Bedside Glucose 145 Medications Medications Current Medications Lorazepam (Ativan) 0.5 mg Q6H PRN IV ANXIETY Last administered on 08/25/16 02: 57; Admin Dose 0.5 MG; Start 08/13/16 at 16:00 Ondansetron HCl (Zofran Inj) 4 mg Q6H PRN IV NAUSEA AND/OR VOMITING Last administered on 08/27/16 03:37; Admin Dose 4 MG; Start 08/13/16 at 16:00 Nitroglycerin (Nitroglycerin (Sl Tab) 0.4 Mg) 1 tab Q5M PRN SL CHEST PAIN Last administered on 08/21/16 23:04; Admin Dose 1 TAB; Start 08/13/16 at 16:00 Acetaminophen (Tylenol Supp) 650 mg Q6H PRN [place] PAIN LEVEL 1-3 OR FEVER; Start 08/13/16 at 16:00 Morphine Sulfate (morphine) 2 mg Q4H PRN IV PAIN LEVEL 7-10 Last administered on 08/27/16 03:23; Admin Dose 2 MG; Start 08/13/16 at 16:00 Bisacodyl (Dulcolax) 5 mg DAILY PRN PO CONSTIPATION Last administered on 12:18; Admin Dose 5 MG; Start 08/13/16 at 16:00 Miscellaneous Information 1 ea NOTE XX ; Start 08/13/16 at 17:30 Glucose (Glutose) 15 gm Q15M PRN PO DECREASED GLUCOSE; Start 08/13/16 at 17:30 Glucose (Glutose) 22.5 gm Q15M PRN PO DECREASED GLUCOSE; Start 08/13/16 at 17:30 Dextrose (D50w Syringe) 25 ml Q15M PRN IV DECREASED GLUCOSE Last administered on 08/24/16 05:32; Admin Dose 25 ML; Start 08/13/16 at 17:30 Dextrose (D50w Syringe) 50 ml Q15M PRN IV DECREASED GLUCOSE Last administered on 08/23/16 06:16; Admin Dose 50 ML; Start 08/13/16 at 17:30 Glucagon (Glucagen) 1 mg Q15M PRN IM DECREASED GLUCOSE; Start 08/13/16 at 17:30 Glucose (Glutose) 15 gm Q15M PRN BUCCAL DECREASED GLUCOSE; Start 08/13/16 at 17: 30 Mupirocin (Bactroban) 1 applic BID TOP Last administered on 08/28/16 08:34; Admin Dose 1 APPLIC; Start 08/15/16 at 13:00 Atorvastatin Calcium (Lipitor) 10 mg QHS PO Last administered on 08/27/16 21: 04; Admin Dose 10 MG; Start 08/15/16 at 21:00 Metoprolol Tartrate (Lopressor) 50 mg BID PO Last administered on 08/27/16 21: 05; Admin Dose 50 MG; Start 08/15/16 at 15:00 Diagnostic Test (Pha) (Accucheck) 1 ea 02 XX Last administered on 08/28/16 02: 16; Admin Dose 1 EA; Start 08/16/16 at 02:00 Methimazole (Tapazole) 20 mg DAILY PO Last administered on 08/28/16 08:34; Admin Dose 20 MG; Start 1/10/17 at 15:00 Linagliptin (Tradjenta) 5 mg DAILY PO Last administered on 08/28/16 08:34; Admin Dose 5 MG; Start 08/15/16 at 18:30 Rifampin 600 mg 600 mg DAILY PO Last administered on 08/28/16 08:34; Admin Dose 600 MG; Start 08/16/16 at 16:30 Ceftriaxone Sodium (Rocephin) 50 ml @ 100 mls/hr Q24H IVPB Last administered on 08/27/16 14:53; Admin Dose 100 MLS/HR; Start 08/16/16 at 15:30 IV Flush (NS 10 ml) 10 ml PRN PRN IV IV PROTOCOL; Start 08/16/16 at 15:30 Collagenase (Santyl) 1 applic DAILY TOP Last administered on 08/28/16 08:34; Admin Dose 1 APPLIC; Start 08/17/16 at 09:00 Pantoprazole (Protonix Tab) 40 mg DAILY@06 PO Last administered on 08/28/16 06 :34; Admin Dose 40 MG; Start 08/20/16 at 06:00 Diphenhydramine HCl (Benadryl) 25 mg Q6H PRN IV ITCHING Last administered on 18:15; Admin Dose 25 MG; Start 08/22/16 at 12:00 Fluconazole (Diflucan) 100 mg DAILY NGT Last administered on 08/28/16 08:34; Admin Dose 100 MG; Start 08/24/16 at 09:00 Loratadine (Claritin) 10 mg DAILY PO Last administered on 08/28/16 08:34; Admin Dose 10 MG; Start 08/23/16 at 14:30 Insulin Glargine 10 unit 10 unit HS SC Last administered on 08/27/16 21:08; Admin Dose 10 UNIT; Start 08/23/16 at 21:00 Vancomycin HCl (Vancocin) 250 ml @ 125 mls/hr Q24H IVPB Last administered on 08:33; Admin Dose 125 MLS/HR; Start 08/25/16 at 09:00 Hydroxyzine HCl (Atarax) 25 mg Q6H PRN PO ITCHING Last administered on 17:41; Admin Dose 25 MG; Start 08/26/16 at 21:00 DANN HAY NP Aug 28, 2016 11:49
[2016-08-28] MEDS: hydrOXYzine HCL 25 MG TAB PO PRN (13:24)
[2016-08-28] MEDS: morphine 2 MG INJ IV PRN (13:25)
[2016-08-28] MEDS: CEFTRIAXONE 1 GM/50 ML (PMX) 50 ML IVPB SCH (15:30)
--- NOTE | 2016-08-28 16:42 | CONS ---
Date/Time of Note Date/Time of Note DATE: 08/28/16 TIME: 16:40 Assessment/Plan Assessment/Plan Chief Complaint/Hosp Course Awake, looks comfortable, afebrile MICROBIOLOGY: Blood cultures on admission grew MRSA. Urine culture grew E. coli and MRSA. Nares swab came back positive for MRSA. Wound culture growing MRSA/GNR/yeast ANTIMICROBIALS: 1. Vancomycin. 2. Rifampin 3. Rocephin 4. Diflucan INDWELLINGS: Lundy catheter. PHYSICAL EXAMINATION: GENERAL: Fragile, elderly woman who is lying comfortably in bed. Patient is awake and follows commands. HEENT: Head atraumatic, normocephalic. Sclerae anicteric. Buccal mucosa dry. NECK: Supple, trachea midline. CHEST: Rise symmetrical. Breath sounds clear, diminished to bases. HEART: S1, S2. ABDOMEN: Soft. Bowel tones present. EXTREMITIES: Left upper extremity edema. The patient also has anasarca. ASSESSMENT: 1. S/p sepsis. 2. Methicillin-resistant Staphylococcus aureus bacteremia 2 to below. 3. Polymicrobial urinary tract infection with urine culture growing MRSA and E. coli. 4. Bilateral heel cellulitis with chronic wounds==> s/p debridement 5. Methicillin-resistant Staphylococcus aureus nares colonization. 6. Anemia, status post hematemesis and EGD that revealed Faye-Johnson tear and chronic gastritis. 7. History of atrial fibrillation and congestive heart failure. 8. History of cerebrovascular accident. 9. Diabetes. PLAN: The patient remains stable, repeat bld cx negative, continue abx, wound care per podiatry rec-s [facility] staff Problems: Consultation Date/Type/Reason Admit Date/Time Aug 14, 2016 at 01:54 Initial Consult Date 08/15/16 Type of Consultation: id Referring Provider: SÁNCHEZ WOMACK MD Exam/Review of Systems Vital Signs Vitals Vital Signs Date Time Temp Pulse Resp B/P Pulse Ox O2 Delivery O2 Flow Rate FiO2 08/28/16 09:00 97.6 86 20 125/64 99 Nasal Cannula 2.0 Intake and Output 08/27/16 08/27/16 08/28/16 15:00 23:00 07:00 Intake Total 1090 ml 50 ml 550 ml Output Total 900 ml 300 ml 800 ml Balance 190 ml -250 ml -250 ml Results Result Diagram: 08/24/16 0420 08/28/16 0530 Results 24 hrs Laboratory Tests Test 08/27/16 17:24 08/27/16 21:00 08/28/16 02:07 08/28/16 05:30 Bedside Glucose 203 214 170 Blood Urea Nitrogen 8 Creatinine 0.66 Test 08/28/16 08:10 08/28/16 08:24 08/28/16 13:22 Vancomycin Level Trough 15.4 Bedside Glucose 145 239 H Medications Medications Current Medications Lorazepam (Ativan) 0.5 mg Q6H PRN IV ANXIETY Last administered on 08/25/16 02: 57; Admin Dose 0.5 MG; Start 08/13/16 at 16:00 Ondansetron HCl (Zofran Inj) 4 mg Q6H PRN IV NAUSEA AND/OR VOMITING Last administered on 08/27/16 03:37; Admin Dose 4 MG; Start 08/13/16 at 16:00 Nitroglycerin (Nitroglycerin (Sl Tab) 0.4 Mg) 1 tab Q5M PRN SL CHEST PAIN Last administered on 08/21/16 23:04; Admin Dose 1 TAB; Start 08/13/16 at 16:00 Acetaminophen (Tylenol Supp) 650 mg Q6H PRN [place] PAIN LEVEL 1-3 OR FEVER; Start 08/13/16 at 16:00 Morphine Sulfate (morphine) 2 mg Q4H PRN IV PAIN LEVEL 7-10 Last administered on 08/28/16 13:25; Admin Dose 2 MG; Start 08/13/16 at 16:00 Bisacodyl (Dulcolax) 5 mg DAILY PRN PO CONSTIPATION Last administered on 12:18; Admin Dose 5 MG; Start 08/13/16 at 16:00 Miscellaneous Information 1 ea NOTE XX ; Start 08/13/16 at 17:30 Glucose (Glutose) 15 gm Q15M PRN PO DECREASED GLUCOSE; Start 08/13/16 at 17:30 Glucose (Glutose) 22.5 gm Q15M PRN PO DECREASED GLUCOSE; Start 08/13/16 at 17:30 Dextrose (D50w Syringe) 25 ml Q15M PRN IV DECREASED GLUCOSE Last administered on 08/24/16 05:32; Admin Dose 25 ML; Start 08/13/16 at 17:30 Dextrose (D50w Syringe) 50 ml Q15M PRN IV DECREASED GLUCOSE Last administered on 08/23/16 06:16; Admin Dose 50 ML; Start 08/13/16 at 17:30 Glucagon (Glucagen) 1 mg Q15M PRN IM DECREASED GLUCOSE; Start 08/13/16 at 17:30 Glucose (Glutose) 15 gm Q15M PRN BUCCAL DECREASED GLUCOSE; Start 08/13/16 at 17: 30 Mupirocin (Bactroban) 1 applic BID TOP Last administered on 08/28/16 08:34; Admin Dose 1 APPLIC; Start 08/15/16 at 13:00 Atorvastatin Calcium (Lipitor) 10 mg QHS PO Last administered on 08/27/16 21: 04; Admin Dose 10 MG; Start 08/15/16 at 21:00 Metoprolol Tartrate (Lopressor) 50 mg BID PO Last administered on 08/27/16 21: 05; Admin Dose 50 MG; Start 08/15/16 at 15:00 Diagnostic Test (Pha) (Accucheck) 1 ea 02 XX Last administered on 08/28/16 02: 16; Admin Dose 1 EA; Start 08/16/16 at 02:00 Methimazole (Tapazole) 20 mg DAILY PO Last administered on 08/28/16 08:34; Admin Dose 20 MG; Start 08/15/16 at 15:00 Linagliptin (Tradjenta) 5 mg DAILY PO Last administered on 08/28/16 08:34; Admin Dose 5 MG; Start 08/15/16 at 18:30 Rifampin 600 mg 600 mg DAILY PO Last administered on 08/28/16 08:34; Admin Dose 600 MG; Start 08/16/16 at 16:30 Ceftriaxone Sodium (Rocephin) 50 ml @ 100 mls/hr Q24H IVPB Last administered on 08/27/16 14:53; Admin Dose 100 MLS/HR; Start 08/16/16 at 15:30 IV Flush (NS 10 ml) 10 ml PRN PRN IV IV PROTOCOL; Start 08/16/16 at 15:30 Collagenase (Santyl) 1 applic DAILY TOP Last administered on 08/28/16 08:34; Admin Dose 1 APPLIC; Start 08/17/16 at 09:00 Pantoprazole (Protonix Tab) 40 mg DAILY@06 PO Last administered on 08/28/16 06 :34; Admin Dose 40 MG; Start 08/20/16 at 06:00 Diphenhydramine HCl (Benadryl) 25 mg Q6H PRN IV ITCHING Last administered on 18:15; Admin Dose 25 MG; Start 08/22/16 at 12:00 Fluconazole (Diflucan) 100 mg DAILY NGT Last administered on 08/28/16 08:34; Admin Dose 100 MG; Start 08/24/16 at 09:00 Loratadine (Claritin) 10 mg DAILY PO Last administered on 08/28/16 08:34; Admin Dose 10 MG; Start 08/23/16 at 14:30 Insulin Glargine 10 unit 10 unit HS SC Last administered on 08/27/16 21:08; Admin Dose 10 UNIT; Start 08/23/16 at 21:00 Vancomycin HCl (Vancocin) 250 ml @ 125 mls/hr Q24H IVPB Last administered on 08:33; Admin Dose 125 MLS/HR; Start 08/25/16 at 09:00 Hydroxyzine HCl (Atarax) 25 mg Q6H PRN PO ITCHING Last administered on 13:24; Admin Dose 25 MG; Start 08/26/16 at 21:00 DEMAR VILLALOBOS NP Aug 28, 2016 16:42
[2016-08-28 20:28] VITALS: BP 113/69; RESP 22
[2016-08-28] MEDS: ATORVASTATIN 10 MG TAB PO SCH (21:48)
[2016-08-28] MEDS: INSULIN GLARGINE [LANtus] 3 ML PEN SC SCH (21:51)
--- NOTE | 2016-08-28 22:48 | CONS ---
Date/Time of Note Date/Time of Note DATE: 08/28/16 TIME: 22:46 Assessment/Plan Assessment/Plan Additional Assessment/Plan Sepsis Atrial fibrillation with rapid ventricular rates, improved Acute blood loss anemia/GI bleed Preserved ejection fraction Hyperthyroidism History of hypertension History of CVA Diabetes -heart rate trend overall stable, continue lopressor and BP tolerates, no anticoagulation at current time secondary to GI bleed. Consultation Date/Type/Reason Admit Date/Time Aug 14, 2016 at 01:54 Initial Consult Date 08/15/16 Type of Consultation: cv Referring Provider: SÁNCHEZ WOMACK MD 24 HR Interval Summary Free Text/Dictation denies sob, cp, palpitations Exam/Review of Systems Vital Signs Vitals Vital Signs Date Time Temp Pulse Resp B/P Pulse Ox O2 Delivery O2 Flow Rate FiO2 08/28/16 20:28 97.5 101 22 113/69 96 08/28/16 09:00 Nasal Cannula 2.0 Intake and Output 08/27/16 08/27/16 08/28/16 15:00 23:00 07:00 Intake Total 1090 ml 50 ml 550 ml Output Total 900 ml 300 ml 800 ml Balance 190 ml -250 ml -250 ml Exam nad, following commands Constitutional: alert Head: normocephalic Respiratory: other (course bs, no wheeze) Cardiovascular: irregular rhythm, other (s1s2) Gastrointestinal: bowel sounds, non-tender, soft Extremities: edema Results Result Diagram: 08/24/16 0420 08/28/16 0530 Results 24 hrs Laboratory Tests Test 08/28/16 02:07 08/28/16 05:30 08/28/16 08:10 08/28/16 08:24 Bedside Glucose 170 145 Blood Urea Nitrogen 8 Creatinine 0.66 Vancomycin Level Trough 15.4 Test 08/28/16 13:22 08/28/16 18:32 08/28/16 21:47 Bedside Glucose 239 H 101 138 Medications Medications Current Medications Lorazepam (Ativan) 0.5 mg Q6H PRN IV ANXIETY Last administered on 08/25/16 02: 57; Admin Dose 0.5 MG; Start 08/13/16 at 16:00 Ondansetron HCl (Zofran Inj) 4 mg Q6H PRN IV NAUSEA AND/OR VOMITING Last administered on 08/27/16 03:37; Admin Dose 4 MG; Start 08/13/16 at 16:00 Nitroglycerin (Nitroglycerin (Sl Tab) 0.4 Mg) 1 tab Q5M PRN SL CHEST PAIN Last administered on 08/21/16 23:04; Admin Dose 1 TAB; Start 08/13/16 at 16:00 Acetaminophen (Tylenol Supp) 650 mg Q6H PRN [place] PAIN LEVEL 1-3 OR FEVER; Start 08/13/16 at 16:00 Morphine Sulfate (morphine) 2 mg Q4H PRN IV PAIN LEVEL 7-10 Last administered on 08/28/16 13:25; Admin Dose 2 MG; Start 08/13/16 at 16:00 Bisacodyl (Dulcolax) 5 mg DAILY PRN PO CONSTIPATION Last administered on 12:18; Admin Dose 5 MG; Start 08/13/16 at 16:00 Miscellaneous Information 1 ea NOTE XX ; Start 08/13/16 at 17:30 Glucose (Glutose) 15 gm Q15M PRN PO DECREASED GLUCOSE; Start 08/13/16 at 17:30 Glucose (Glutose) 22.5 gm Q15M PRN PO DECREASED GLUCOSE; Start 08/13/16 at 17:30 Dextrose (D50w Syringe) 25 ml Q15M PRN IV DECREASED GLUCOSE Last administered on 08/24/16 05:32; Admin Dose 25 ML; Start 08/13/16 at 17:30 Dextrose (D50w Syringe) 50 ml Q15M PRN IV DECREASED GLUCOSE Last administered on 08/23/16 06:16; Admin Dose 50 ML; Start 08/13/16 at 17:30 Glucagon (Glucagen) 1 mg Q15M PRN IM DECREASED GLUCOSE; Start 08/13/16 at 17:30 Glucose (Glutose) 15 gm Q15M PRN BUCCAL DECREASED GLUCOSE; Start 08/13/16 at 17: 30 Mupirocin (Bactroban) 1 applic BID TOP Last administered on 08/28/16 21:49; Admin Dose 1 APPLIC; Start 08/15/16 at 13:00 Atorvastatin Calcium (Lipitor) 10 mg QHS PO Last administered on 08/28/16 21: 48; Admin Dose 10 MG; Start 08/15/16 at 21:00 Metoprolol Tartrate (Lopressor) 50 mg BID PO Last administered on 08/28/16 21: 49; Admin Dose 50 MG; Start 08/15/16 at 15:00 Diagnostic Test (Pha) (Accucheck) 1 ea 02 XX Last administered on 08/28/16 02: 16; Admin Dose 1 EA; Start 08/16/16 at 02:00 Methimazole (Tapazole) 20 mg DAILY PO Last administered on 08/28/16 08:34; Admin Dose 20 MG; Start 08/15/16 at 15:00 Linagliptin (Tradjenta) 5 mg DAILY PO Last administered on 08/28/16 08:34; Admin Dose 5 MG; Start 08/15/16 at 18:30 Rifampin 600 mg 600 mg DAILY PO Last administered on 08/28/16 08:34; Admin Dose 600 MG; Start 08/16/16 at 16:30 Ceftriaxone Sodium (Rocephin) 50 ml @ 100 mls/hr Q24H IVPB Last administered on 08/28/16 15:30; Admin Dose 100 MLS/HR; Start 08/16/16 at 15:30 IV Flush (NS 10 ml) 10 ml PRN PRN IV IV PROTOCOL; Start 08/16/16 at 15:30 Collagenase (Santyl) 1 applic DAILY TOP Last administered on 08/28/16 08:34; Admin Dose 1 APPLIC; Start 08/17/16 at 09:00 Pantoprazole (Protonix Tab) 40 mg DAILY@06 PO Last administered on 08/28/16 06 :34; Admin Dose 40 MG; Start 08/20/16 at 06:00 Diphenhydramine HCl (Benadryl) 25 mg Q6H PRN IV ITCHING Last administered on 18:15; Admin Dose 25 MG; Start 08/22/16 at 12:00 Fluconazole (Diflucan) 100 mg DAILY NGT Last administered on 08/28/16 08:34; Admin Dose 100 MG; Start 08/24/16 at 09:00 Loratadine (Claritin) 10 mg DAILY PO Last administered on 08/28/16 08:34; Admin Dose 10 MG; Start 08/23/16 at 14:30 Insulin Glargine 10 unit 10 unit HS SC Last administered on 08/28/16 21:51; Admin Dose 10 UNIT; Start 08/23/16 at 21:00 Vancomycin HCl (Vancocin) 250 ml @ 125 mls/hr Q24H IVPB Last administered on 08:33; Admin Dose 125 MLS/HR; Start 08/25/16 at 09:00 Hydroxyzine HCl (Atarax) 25 mg Q6H PRN PO ITCHING Last administered on 13:24; Admin Dose 25 MG; Start 08/26/16 at 21:00 Shawn Lozada DO Aug 28, 2016 22:48
[2016-08-29] MEDS: ACCUCHECK XX SCH (02:00)
[2016-08-29] MEDS: PANTOPRAZOLE (EC) 40 MG TAB PO SCH (05:31)
[2016-08-29 06:30] LABS: BASOPHILS % 0.8 % (0.0-2.0); EOSINOPHILS # 0.4 10^3/ul (0.0-0.5); HEMATOCRIT 24.2 % (37.0-47.0); LYMPHOCYTES # 1.4 10^3/ul (0.8-2.9); LYMPHOCYTES % 25.9 % (15.0-51.0); MEAN CORPUSCULAR HEMOGLOBIN 29.1 pg (29.0-33.0); MEAN PLATELET VOLUME 8.4 fl (7.4-10.4); MONOCYTE # 0.4 10^3/ul (0.3-0.9); MONOCYTES % 6.6 % (0.0-11.0); NEUTROPHIL # 3.3 10^3/ul (1.6-7.5); NEUTROPHILS % 58.7 % (39.0-77.0); PLATELET COUNT 196 10^3/UL (140-440); RED BLOOD COUNT 2.75 10^6/ul (4.20-5.40); RED CELL DISTRIBUTION WIDTH 17.4 % (11.5-14.5); UNCORRECTED WBC 5.5 10^3/ul (4.8-10.8); WHITE BLOOD COUNT 5.5 10^3/ul (4.8-10.8)
[2016-08-29 06:42] LABS: CONDITION 1; LH ANALYZER COMMENTS 1
[2016-08-29 06:57] LABS: POTASSIUM 3.6 mmol/L (3.5-5.1)
[2016-08-29 07:00] LABS: CREATININE 0.67 mg/dl (0.44-1.00)
[2016-08-29 07:01] LABS: CALCIUM 7.4 mg/dl (8.4-10.2)
[2016-08-29 07:13] LABS: MAGNESIUM 1.2 mg/dl (1.7-2.5); PHOSPHORUS 3.5 mg/dl (2.5-4.9)
[2016-08-29 07:39] VITALS: BP 164/83; RESP 18
[2016-08-29] MEDS: DEXTROSE 50% 50 ML SYRINGE IV PRN (08:13)
[2016-08-29] MEDS: INSULIN ASPART [NOVOLOG] 3 ML PEN SC SCH ×4 (08:15→21:00)
[2016-08-29] MEDS: LORATADINE 10 MG TAB PO SCH (09:00)
[2016-08-29] MEDS: FLUCONAZOLE 100 MG TAB NGT SCH (09:00)
[2016-08-29] MEDS: LINAGLIPTIN 5 MG TABLET PO SCH (09:00)
[2016-08-29] MEDS: RIFAMPIN 300 MG CAP PO SCH (09:00)
[2016-08-29] MEDS: METOPROLOL 50 MG TAB PO SCH ×2 (09:00→21:25)
[2016-08-29] MEDS: METHIMAZOLE 5 MG TAB PO SCH (09:00)
[2016-08-29] MEDS: VANCOMYCIN 1 GM in NS 250 ML IVPB SCH (09:41)
[2016-08-29] MEDS: MUPIROCIN 2% 22 GM OINT TOP SCH ×2 (09:43→21:25)
[2016-08-29] MEDS: COLLAGENASE 30 GM TUBE TOP SCH (09:43)
--- NOTE | 2016-08-29 10:38 | PN ---
Date/Time of Note Date/Time of Note DATE: 08/29/16 TIME: 10:36 Assessment/Plan VTE Prophylaxis VTE Prophylaxis Intervention: SCD's Lines/Catheters IV [facility] PICC Line Central line still needed: Yes Urinary Cath still in place: Yes Reason Cath still needed: skin wounds contaminated by urine Assessment/Plan Chief Complaint/Hosp Course 1. Upper gastrointestinal bleeding. The patient was evaluated by gastroenterology. Esophagogastroduodenoscopy revealed a Faye-Johnson tear, chronic gastritis, and nodular duodenitis. Continue proton pump inhibitors. 2. Atrial fibrillation with rapid ventricular response. Currently, the rate is controlled. No anticoagulation because of underlying gastrointestinal bleed. Cardiology following. 3. Sepsis with underlying MRSA bacteremia, infected pressure ulcers, and urinary tract infection. Continue antibiotics. Infectious disease is on the case. 4. Infected B/L heel pressure ulcers. Seen and evaluated by podiatry. S/P local debridement of the left heel ulcer on 08/20/2016. Plan for further debridement of the bilateral heel ulcers on 08/29/2016 5. Essential hypertension. Continue antihypertensives. 6. Peripheral vascular disease. Monitor for acute changes. Anticoagulation on hold because of current gastrointestinal bleed. 7. Dyslipidemia. Continue statins. Fasting lipid panel showing low HDL and low total cholesterol. 8. Type 2 diabetes mellitus. Hemoglobin A1c 9.8. Continue sliding scale insulin. 9. Left upper extremity edema. Largely resolved. Left upper extremity venous Doppler study negative for any deep venous thrombosis. Continue elevation of left upper extremity. 10. Multiple pressure ulcers. Continue local wound care. Wound care consult. 11. Hyperthyroidism. The patient was started on methimazole. 12. MRSA colonization of the nares. Continue Bactroban. 13. Fluid, electrolytes and nutrition. Carbohydrate controlled, low- cholesterol diet. 14. DVT prophylaxis with serial sequential compression devices. No anticoagulation because of underlying GI bleed. 15. Gastrointestinal prophylaxis with proton pump inhibitors. PLAN: Replete magnesium. Start dextrose containing IV fluids because of hypoglycemia. Await further debridement of bilateral heel ulcers. Continue antibiotics as per infectious diseases. Continue in-house monitoring. Case discussed with Dr. Ying. Problems: Subjective 24 Hr Interval Summary Free Text/Dictation The patient remains afebrile. Exam/Review of Systems Vital Signs Vitals Vital Signs Date Time Temp Pulse Resp B/P Pulse Ox O2 Delivery O2 Flow Rate FiO2 08/29/16 07:39 98.0 104 18 164/83 98 08/29/16 05:25 2.0 08/28/16 20:00 Nasal Cannula Intake and Output 08/28/16 08/28/16 08/29/16 15:00 23:00 07:00 Intake Total 125 ml 610 ml 480 ml Output Total 1000 ml 500 ml Balance 125 ml -390 ml -20 ml Exam GENERAL: This is a frail-looking elderly female lying in bed in no apparent distress. HEENT: Head normocephalic and atraumatic. Eyes: Anicteric sclerae. Conjunctivae clear. ENT: Nasal septum is midline. Oral mucosa is dry. NECK: Supple. No JVD noticed. RESPIRATORY: Bilaterally diminished breath sounds. No adventitious breath sounds. No use of accessory muscles of respiration. CARDIAC: Irregularly irregular rhythm. Systolic murmur. ABDOMEN: Soft, nontender and nondistended. Bowel sounds hypoactive in all 4 quadrants. GENITOURINARY: Deferred. EXTREMITIES: No cyanosis, no clubbing. Bilateral lower extremity 1 to 2+ pitting edema. Left upper extremity 2 to 3+ pitting edema. Left upper extremity tenderness upon palpation. Peripheral pulses are diminished. NEUROLOGIC: The patient is awake and alert and oriented x1 to 2. Results Result Diagram: 08/29/16 0533 08/29/16 0533 Results 24 hrs Laboratory Tests Test 08/28/16 13:22 08/28/16 18:32 08/28/16 21:47 08/29/16 05:06 Bedside Glucose 239 H 101 138 Magnesium Level 1.2 L Phosphorus Level 3.5 Test 08/29/16 05:33 08/29/16 07:56 08/29/16 08:51 Anion Gap 9 Basophils # 0.0 Basophils % 0.8 Blood Morphology Comment Blood Urea Nitrogen 7 Calcium Level 7.4 L Carbon Dioxide Level 31 Chloride Level 104 Creatinine 0.67 Eosinophils # 0.4 Eosinophils % 8.0 H Glucose Level 59 L Hematocrit 24.2 L Hemoglobin 8.0 L Lymphocytes # 1.4 Lymphocytes % 25.9 Mean Corpuscular Hemoglobin 29.1 Mean Corpuscular Hemoglobin Concent 33.0 Mean Corpuscular Volume 88.0 Mean Platelet Volume 8.4 Monocytes # 0.4 Monocytes % 6.6 Neutrophils # 3.3 Neutrophils % 58.7 Nucleated Red Blood Cells # 0.0 Nucleated Red Blood Cells % 0.0 Platelet Count 196 # Potassium Level 3.6 Red Blood Count 2.75 L Red Cell Distribution Width 17.4 H Sodium Level 140 White Blood Count 5.5 Bedside Glucose 64 L 119 Medications Medications Current Medications Lorazepam (Ativan) 0.5 mg Q6H PRN IV ANXIETY Last administered on 08/25/16 02: 57; Admin Dose 0.5 MG; Start 08/13/16 at 16:00 Ondansetron HCl (Zofran Inj) 4 mg Q6H PRN IV NAUSEA AND/OR VOMITING Last administered on 08/27/16 03:37; Admin Dose 4 MG; Start 08/13/16 at 16:00 Nitroglycerin (Nitroglycerin (Sl Tab) 0.4 Mg) 1 tab Q5M PRN SL CHEST PAIN Last administered on 08/21/16 23:04; Admin Dose 1 TAB; Start 08/13/16 at 16:00 Acetaminophen (Tylenol Supp) 650 mg Q6H PRN [place] PAIN LEVEL 1-3 OR FEVER; Start 08/13/16 at 16:00 Morphine Sulfate (morphine) 2 mg Q4H PRN IV PAIN LEVEL 7-10 Last administered on 08/28/16 13:25; Admin Dose 2 MG; Start 08/13/16 at 16:00 Bisacodyl (Dulcolax) 5 mg DAILY PRN PO CONSTIPATION Last administered on 12:18; Admin Dose 5 MG; Start 08/13/16 at 16:00 Miscellaneous Information 1 ea NOTE XX ; Start 08/13/16 at 17:30 Glucose (Glutose) 15 gm Q15M PRN PO DECREASED GLUCOSE; Start 08/13/16 at 17:30 Glucose (Glutose) 22.5 gm Q15M PRN PO DECREASED GLUCOSE; Start 08/13/16 at 17:30 Dextrose (D50w Syringe) 25 ml Q15M PRN IV DECREASED GLUCOSE Last administered on 08/29/16 08:13; Admin Dose 25 ML; Start 08/13/16 at 17:30 Dextrose (D50w Syringe) 50 ml Q15M PRN IV DECREASED GLUCOSE Last administered on 08/23/16 06:16; Admin Dose 50 ML; Start 08/13/16 at 17:30 Glucagon (Glucagen) 1 mg Q15M PRN IM DECREASED GLUCOSE; Start 08/13/16 at 17:30 Glucose (Glutose) 15 gm Q15M PRN BUCCAL DECREASED GLUCOSE; Start 08/13/16 at 17: 30 Mupirocin (Bactroban) 1 applic BID TOP Last administered on 08/29/16 09:43; Admin Dose 1 APPLIC; Start 08/15/16 at 13:00 Atorvastatin Calcium (Lipitor) 10 mg QHS PO Last administered on 08/28/16 21: 48; Admin Dose 10 MG; Start 08/15/16 at 21:00 Metoprolol Tartrate (Lopressor) 50 mg BID PO Last administered on 08/28/16 21: 49; Admin Dose 50 MG; Start 08/15/16 at 15:00 Diagnostic Test (Pha) (Accucheck) 1 ea 02 XX Last administered on 08/28/16 02: 16; Admin Dose 1 EA; Start 08/16/16 at 02:00 Methimazole (Tapazole) 20 mg DAILY PO Last administered on 08/28/16 08:34; Admin Dose 20 MG; Start 08/15/16 at 15:00 Linagliptin (Tradjenta) 5 mg DAILY PO Last administered on 08/28/16 08:34; Admin Dose 5 MG; Start 08/15/16 at 18:30 Rifampin 600 mg 600 mg DAILY PO Last administered on 08/28/16 08:34; Admin Dose 600 MG; Start 08/16/16 at 16:30 Ceftriaxone Sodium (Rocephin) 50 ml @ 100 mls/hr Q24H IVPB Last administered on 08/28/16 15:30; Admin Dose 100 MLS/HR; Start 08/16/16 at 15:30 IV Flush (NS 10 ml) 10 ml PRN PRN IV IV PROTOCOL; Start 08/16/16 at 15:30 Collagenase (Santyl) 1 applic DAILY TOP Last administered on 08/29/16 09:43; Admin Dose 1 APPLIC; Start 08/17/16 at 09:00 Pantoprazole (Protonix Tab) 40 mg DAILY@06 PO Last administered on 08/29/16 05 :31; Admin Dose 40 MG; Start 08/20/16 at 06:00 Diphenhydramine HCl (Benadryl) 25 mg Q6H PRN IV ITCHING Last administered on 18:15; Admin Dose 25 MG; Start 08/22/16 at 12:00 Fluconazole (Diflucan) 100 mg DAILY NGT Last administered on 08/28/16 08:34; Admin Dose 100 MG; Start 08/24/16 at 09:00 Loratadine (Claritin) 10 mg DAILY PO Last administered on 08/28/16 08:34; Admin Dose 10 MG; Start 08/23/16 at 14:30 Insulin Glargine 10 unit 10 unit HS SC Last administered on 08/28/16 21:51; Admin Dose 10 UNIT; Start 08/23/16 at 21:00 Vancomycin HCl (Vancocin) 250 ml @ 125 mls/hr Q24H IVPB Last administered on 09:41; Admin Dose 125 MLS/HR; Start 08/25/16 at 09:00 Hydroxyzine HCl 25 mg 25 mg Q6H PRN PO ITCHING Last administered on 08/28/16 13:24; Admin Dose 25 MG; Start 08/26/16 at 21:00 Dextrose/Sodium Chloride 1,000 ml @ 60 mls/hr [id number] IV ; Start 08/29/16 at 10 :30; Status UNV Magnesium Sulfate (Magnesium Sulfate 4 Gm/100 ml) 100 ml @ 25 mls/hr ONCE ONCE IVPB ; Start 08/29/16 at 10:30; Stop 08/29/16 at 14:29; Status UNV DANN HAY NP Aug 29, 2016 10:38
[2016-08-29] MEDS ORDERED: MAGNESIUM SULFATE 4 GM/100 ML 100 ML IVPB ONE (11:30)
[2016-08-29] MEDS: DEXTROSE 5%-0.45% NACL 1,000 ML IV SCH (11:41)
--- NOTE | 2016-08-29 13:50 | CONS ---
Date/Time of Note Date/Time of Note DATE: 08/29/16 TIME: 13:47 Assessment/Plan Assessment/Plan Chief Complaint/Hosp Course Subjective: No acute changes, awake, looks comfortable, afebrile MICROBIOLOGY: Blood cultures on admission grew MRSA. Urine culture grew E. coli and MRSA. Nares swab came back positive for MRSA. Wound culture growing MRSA/GNR/yeast ANTIMICROBIALS: 1. Vancomycin. 2. Rifampin 3. Rocephin 4. Diflucan INDWELLINGS: Lundy catheter. PHYSICAL EXAMINATION: GENERAL: Fragile, elderly woman who is lying comfortably in bed. Patient is awake and follows commands. HEENT: Head atraumatic, normocephalic. Sclerae anicteric. Buccal mucosa dry. NECK: Supple, trachea midline. CHEST: Rise symmetrical. Breath sounds clear, diminished to bases. HEART: S1, S2. ABDOMEN: Soft. Bowel tones present. EXTREMITIES: Left upper extremity edema. The patient also has anasarca. ASSESSMENT: 1. S/p sepsis. 2. Methicillin-resistant Staphylococcus aureus bacteremia 2 to below. 3. Polymicrobial urinary tract infection with urine culture growing MRSA and E. coli. 4. Bilateral heel cellulitis with chronic wounds==> s/p debridement 5. Methicillin-resistant Staphylococcus aureus nares colonization. 6. Anemia, status post hematemesis and EGD that revealed Faye-Johnson tear and chronic gastritis. 7. History of atrial fibrillation and congestive heart failure. 8. History of cerebrovascular accident. 9. Diabetes. PLAN: The patient remains stable, repeat bld cx negative, continue IV Vanco for 7 more days, then change to PO Bactrim for 2 more weeks, local wound care per podiatry rec-s, continue other abx staff Problems: Consultation Date/Type/Reason Admit Date/Time Aug 14, 2016 at 01:54 Initial Consult Date 08/15/16 Type of Consultation: id Referring Provider: SÁNCHEZ WOMACK MD Exam/Review of Systems Vital Signs Vitals Vital Signs Date Time Temp Pulse Resp B/P Pulse Ox O2 Delivery O2 Flow Rate FiO2 08/29/16 08:00 Nasal Cannula 08/29/16 07:39 98.0 104 18 164/83 98 08/29/16 05:25 2.0 Intake and Output 08/28/16 08/28/16 08/29/16 15:00 23:00 07:00 Intake Total 125 ml 610 ml 480 ml Output Total 1000 ml 500 ml Balance 125 ml -390 ml -20 ml Results Result Diagram: 08/29/1633 08/29/16 0533 Results 24 hrs Laboratory Tests Test 08/28/16 18:32 08/28/16 21:47 08/29/16 05:06 08/29/16 05:33 Bedside Glucose 101 138 Magnesium Level 1.2 L Phosphorus Level 3.5 Anion Gap 9 Basophils # 0.0 Basophils % 0.8 Blood Morphology Comment Blood Urea Nitrogen 7 Calcium Level 7.4 L Carbon Dioxide Level 31 Chloride Level 104 Creatinine 0.67 Eosinophils # 0.4 Eosinophils % 8.0 H Glucose Level 59 L Hematocrit 24.2 L Hemoglobin 8.0 L Lymphocytes # 1.4 Lymphocytes % 25.9 Mean Corpuscular Hemoglobin 29.1 Mean Corpuscular Hemoglobin Concent 33.0 Mean Corpuscular Volume 88.0 Mean Platelet Volume 8.4 Monocytes # 0.4 Monocytes % 6.6 Neutrophils # 3.3 Neutrophils % 58.7 Nucleated Red Blood Cells # 0.0 Nucleated Red Blood Cells % 0.0 Platelet Count 196 # Potassium Level 3.6 Red Blood Count 2.75 L Red Cell Distribution Width 17.4 H Sodium Level 140 White Blood Count 5.5 Test 08/29/16 07:56 08/29/16 08:51 08/29/16 11:40 Bedside Glucose 64 L 119 83 Medications Medications Current Medications Lorazepam (Ativan) 0.5 mg Q6H PRN IV ANXIETY Last administered on 08/25/16 02: 57; Admin Dose 0.5 MG; Start 08/13/16 at 16:00 Ondansetron HCl (Zofran Inj) 4 mg Q6H PRN IV NAUSEA AND/OR VOMITING Last administered on 08/27/16 03:37; Admin Dose 4 MG; Start 08/13/16 at 16:00 Nitroglycerin (Nitroglycerin (Sl Tab) 0.4 Mg) 1 tab Q5M PRN SL CHEST PAIN Last administered on 08/21/16 23:04; Admin Dose 1 TAB; Start 08/13/16 at 16:00 Acetaminophen (Tylenol Supp) 650 mg Q6H PRN [place] PAIN LEVEL 1-3 OR FEVER; Start 08/13/16 at 16:00 Morphine Sulfate (morphine) 2 mg Q4H PRN IV PAIN LEVEL 7-10 Last administered on 08/28/16 13:25; Admin Dose 2 MG; Start 08/13/16 at 16:00 Bisacodyl (Dulcolax) 5 mg DAILY PRN PO CONSTIPATION Last administered on 12:18; Admin Dose 5 MG; Start 08/13/16 at 16:00 Miscellaneous Information 1 ea NOTE XX ; Start 08/13/16 at 17:30 Glucose (Glutose) 15 gm Q15M PRN PO DECREASED GLUCOSE; Start 08/13/16 at 17:30 Glucose (Glutose) 22.5 gm Q15M PRN PO DECREASED GLUCOSE; Start 08/13/16 at 17:30 Dextrose (D50w Syringe) 25 ml Q15M PRN IV DECREASED GLUCOSE Last administered on 08/29/16 08:13; Admin Dose 25 ML; Start 08/13/16 at 17:30 Dextrose (D50w Syringe) 50 ml Q15M PRN IV DECREASED GLUCOSE Last administered on 08/23/16 06:16; Admin Dose 50 ML; Start 08/13/16 at 17:30 Glucagon (Glucagen) 1 mg Q15M PRN IM DECREASED GLUCOSE; Start 08/13/16 at 17:30 Glucose (Glutose) 15 gm Q15M PRN BUCCAL DECREASED GLUCOSE; Start 08/13/16 at 17: 30 Mupirocin (Bactroban) 1 applic BID TOP Last administered on 08/29/16 09:43; Admin Dose 1 APPLIC; Start 08/15/16 at 13:00 Atorvastatin Calcium (Lipitor) 10 mg QHS PO Last administered on 08/28/16 21: 48; Admin Dose 10 MG; Start 08/15/16 at 21:00 Metoprolol Tartrate (Lopressor) 50 mg BID PO Last administered on 08/28/16 21: 49; Admin Dose 50 MG; Start 08/15/16 at 15:00 Diagnostic Test (Pha) (Accucheck) 1 ea 02 XX Last administered on 08/28/16 02: 16; Admin Dose 1 EA; Start 08/16/16 at 02:00 Methimazole (Tapazole) 20 mg DAILY PO Last administered on 08/28/16 08:34; Admin Dose 20 MG; Start 08/15/16 at 15:00 Linagliptin (Tradjenta) 5 mg DAILY PO Last administered on 08/28/16 08:34; Admin Dose 5 MG; Start 08/15/16 at 18:30 Rifampin 600 mg 600 mg DAILY PO Last administered on 08/28/16 08:34; Admin Dose 600 MG; Start 08/16/16 at 16:30 Ceftriaxone Sodium (Rocephin) 50 ml @ 100 mls/hr Q24H IVPB Last administered on 08/28/16 15:30; Admin Dose 100 MLS/HR; Start 08/16/16 at 15:30 IV Flush (NS 10 ml) 10 ml PRN PRN IV IV PROTOCOL; Start 08/16/16 at 15:30 Collagenase (Santyl) 1 applic DAILY TOP Last administered on 08/29/16 09:43; Admin Dose 1 APPLIC; Start 08/17/16 at 09:00 Pantoprazole (Protonix Tab) 40 mg DAILY@06 PO Last administered on 08/29/16 05 :31; Admin Dose 40 MG; Start 08/20/16 at 06:00 Diphenhydramine HCl (Benadryl) 25 mg Q6H PRN IV ITCHING Last administered on 18:15; Admin Dose 25 MG; Start 08/22/16 at 12:00 Fluconazole (Diflucan) 100 mg DAILY NGT Last administered on 08/28/16 08:34; Admin Dose 100 MG; Start 08/24/16 at 09:00 Loratadine (Claritin) 10 mg DAILY PO Last administered on 08/28/16 08:34; Admin Dose 10 MG; Start 08/23/16 at 14:30 Insulin Glargine 10 unit 10 unit HS SC Last administered on 08/28/16 21:51; Admin Dose 10 UNIT; Start 08/23/16 at 21:00 Vancomycin HCl (Vancocin) 250 ml @ 125 mls/hr Q24H IVPB Last administered on 09:41; Admin Dose 125 MLS/HR; Start 08/25/16 at 09:00 Hydroxyzine HCl 25 mg 25 mg Q6H PRN PO ITCHING Last administered on 08/28/16 13:24; Admin Dose 25 MG; Start 08/26/16 at 21:00 Dextrose/Sodium Chloride 1,000 ml @ 60 mls/hr [id number] IV Last administered on 08/29/16 11:41; Admin Dose 60 MLS/HR; Start 08/29/16 at 10:30 Magnesium Sulfate (Magnesium Sulfate 4 Gm/100 ml) 100 ml @ 25 mls/hr ONCE ONCE IVPB Last administered on 08/29/16 13:19; Admin Dose 25 MLS/HR; Start at 11:30; Stop 08/29/16 at 15:29 DEMAR VILLALOBOS NP Aug 29, 2016 13:50
--- NOTE | 2016-08-29 13:56 | PN ---
Date/Time of Note Date/Time of Note DATE: 08/29/16 TIME: 13:55 Assessment/Plan VTE Prophylaxis VTE Prophylaxis Intervention: SCD's Lines/Catheters IV Catheter Type (from Nrs): PICC Line Central line still needed: No Urinary Cath still in place: Yes Reason Cath still needed: urinary retention Assessment/Plan Assessment/Plan Sepsis Atrial fibrillation with rapid ventricular rates, improved Acute blood loss anemia/GI bleed Preserved ejection fraction Hyperthyroidism History of hypertension History of CVA Diabetes -heart rate trend overall stable, continue lopressor and BP tolerates, no anticoagulation at current time secondary to GI bleed. Subjective 24 Hr Interval Summary Free Text/Dictation The patient with no cahnge Exam/Review of Systems Vital Signs Vitals Vital Signs Date Time Temp Pulse Resp B/P Pulse Ox O2 Delivery O2 Flow Rate FiO2 08/29/16 08:00 Nasal Cannula 08/29/16 07:39 98.0 104 18 164/83 98 08/29/16 05:25 2.0 Intake and Output 08/28/16 08/28/16 08/29/16 15:00 23:00 07:00 Intake Total 125 ml 610 ml 480 ml Output Total 1000 ml 500 ml Balance 125 ml -390 ml -20 ml Results Result Diagram: 08/29/16 0533 08/29/16 0533 Results 24 hrs Laboratory Tests Test 08/28/16 18:32 08/28/16 21:47 08/29/16 05:06 08/29/16 05:33 Bedside Glucose 101 138 Magnesium Level 1.2 L Phosphorus Level 3.5 Anion Gap 9 Basophils # 0.0 Basophils % 0.8 Blood Morphology Comment Blood Urea Nitrogen 7 Calcium Level 7.4 L Carbon Dioxide Level 31 Chloride Level 104 Creatinine 0.67 Eosinophils # 0.4 Eosinophils % 8.0 H Glucose Level 59 L Hematocrit 24.2 L Hemoglobin 8.0 L Lymphocytes # 1.4 Lymphocytes % 25.9 Mean Corpuscular Hemoglobin 29.1 Mean Corpuscular Hemoglobin Concent 33.0 Mean Corpuscular Volume 88.0 Mean Platelet Volume 8.4 Monocytes # 0.4 Monocytes % 6.6 Neutrophils # 3.3 Neutrophils % 58.7 Nucleated Red Blood Cells # 0.0 Nucleated Red Blood Cells % 0.0 Platelet Count 196 # Potassium Level 3.6 Red Blood Count 2.75 L Red Cell Distribution Width 17.4 H Sodium Level 140 White Blood Count 5.5 Test 08/29/16 07:56 08/29/16 08:51 08/29/16 11:40 Bedside Glucose 64 L 119 83 Medications Medications Current Medications Lorazepam (Ativan) 0.5 mg Q6H PRN IV ANXIETY Last administered on 08/25/16 02: 57; Admin Dose 0.5 MG; Start 08/13/16 at 16:00 Ondansetron HCl (Zofran Inj) 4 mg Q6H PRN IV NAUSEA AND/OR VOMITING Last administered on 08/27/16 03:37; Admin Dose 4 MG; Start 08/13/16 at 16:00 Nitroglycerin (Nitroglycerin (Sl Tab) 0.4 Mg) 1 tab Q5M PRN SL CHEST PAIN Last administered on 08/21/16 23:04; Admin Dose 1 TAB; Start 08/13/16 at 16:00 Acetaminophen (Tylenol Supp) 650 mg Q6H PRN [place] PAIN LEVEL 1-3 OR FEVER; Start 08/13/16 at 16:00 Morphine Sulfate (morphine) 2 mg Q4H PRN [place] PAIN LEVEL 7-10 Last administered on 08/28/16 13:25; Admin Dose 2 MG; Start 08/13/16 at 16:00 Bisacodyl (Dulcolax) 5 mg DAILY PRN PO CONSTIPATION Last administered on 12:18; Admin Dose 5 MG; Start 08/13/16 at 16:00 Miscellaneous Information 1 ea NOTE XX ; Start 08/13/16 at 17:30 Glucose (Glutose) 15 gm Q15M PRN PO DECREASED GLUCOSE; Start 08/13/16 at 17:30 Glucose (Glutose) 22.5 gm Q15M PRN PO DECREASED GLUCOSE; Start 08/13/16 at 17:30 Dextrose (D50w Syringe) 25 ml Q15M PRN IV DECREASED GLUCOSE Last administered on 08/29/16 08:13; Admin Dose 25 ML; Start 08/13/16 at 17:30 Dextrose (D50w Syringe) 50 ml Q15M PRN IV DECREASED GLUCOSE Last administered on 08/23/16 06:16; Admin Dose 50 ML; Start 08/13/16 at 17:30 Glucagon (Glucagen) 1 mg Q15M PRN IM DECREASED GLUCOSE; Start 08/13/16 at 17:30 Glucose (Glutose) 15 gm Q15M PRN BUCCAL DECREASED GLUCOSE; Start 08/13/16 at 17: 30 Mupirocin (Bactroban) 1 applic BID TOP Last administered on 08/29/16 09:43; Admin Dose 1 APPLIC; Start 08/15/16 at 13:00 Atorvastatin Calcium (Lipitor) 10 mg QHS PO Last administered on 08/28/16 21: 48; Admin Dose 10 MG; Start 08/15/16 at 21:00 Metoprolol Tartrate (Lopressor) 50 mg BID PO Last administered on 08/28/16 21: 49; Admin Dose 50 MG; Start 08/15/16 at 15:00 Diagnostic Test (Pha) (Accucheck) 1 ea 02 XX Last administered on 08/28/16 02: 16; Admin Dose 1 EA; Start 08/16/16 at 02:00 Methimazole (Tapazole) 20 mg DAILY PO Last administered on 08/28/16 08:34; Admin Dose 20 MG; Start 08/15/16 at 15:00 Linagliptin (Tradjenta) 5 mg DAILY PO Last administered on 08/28/16 08:34; Admin Dose 5 MG; Start 08/15/16 at 18:30 Rifampin 600 mg 600 mg DAILY PO Last administered on 08/28/16 08:34; Admin Dose 600 MG; Start 08/16/16 at 16:30 Ceftriaxone Sodium (Rocephin) 50 ml @ 100 mls/hr Q24H IVPB Last administered on 08/28/16 15:30; Admin Dose 100 MLS/HR; Start 08/16/16 at 15:30 IV Flush (NS 10 ml) 10 ml PRN PRN IV IV PROTOCOL; Start 08/16/16 at 15:30 Collagenase (Santyl) 1 applic DAILY TOP Last administered on 08/29/16 09:43; Admin Dose 1 APPLIC; Start 08/17/16 at 09:00 Pantoprazole (Protonix Tab) 40 mg DAILY@06 PO Last administered on 08/29/16 05 :31; Admin Dose 40 MG; Start 08/20/16 at 06:00 Diphenhydramine HCl (Benadryl) 25 mg Q6H PRN IV ITCHING Last administered on 18:15; Admin Dose 25 MG; Start 08/22/16 at 12:00 Fluconazole (Diflucan) 100 mg DAILY NGT Last administered on 08/28/16 08:34; Admin Dose 100 MG; Start 08/24/16 at 09:00 Loratadine (Claritin) 10 mg DAILY PO Last administered on 08/28/16 08:34; Admin Dose 10 MG; Start 08/23/16 at 14:30 Insulin Glargine 10 unit 10 unit HS SC Last administered on 08/28/16 21:51; Admin Dose 10 UNIT; Start 08/23/16 at 21:00 Vancomycin HCl (Vancocin) 250 ml @ 125 mls/hr Q24H IVPB Last administered on 09:41; Admin Dose 125 MLS/HR; Start 08/25/16 at 09:00 Hydroxyzine HCl 25 mg 25 mg Q6H PRN PO ITCHING Last administered on 08/28/16 13:24; Admin Dose 25 MG; Start 08/26/16 at 21:00 Dextrose/Sodium Chloride 1,000 ml @ 60 mls/hr [id number] IV Last administered on 08/29/16 11:41; Admin Dose 60 MLS/HR; Start 08/29/16 at 10:30 Magnesium Sulfate (Magnesium Sulfate 4 Gm/100 ml) 100 ml @ 25 mls/hr ONCE ONCE IVPB Last administered on 08/29/16 13:19; Admin Dose 25 MLS/HR; Start at 11:30; Stop 08/29/16 at 15:29 KIKE WRIGHT MD Aug 29, 2016 13:56
[2016-08-29] MEDS: CEFTRIAXONE 1 GM/50 ML (PMX) 50 ML IVPB SCH (16:59)
[2016-08-29] MEDS: GENTAMICIN 0.1% 15 GM OINT TOP SCH (18:00)
[2016-08-29] MEDS: DIPHENHYDRAMINE 50 MG INJ IV PRN (18:18)
--- NOTE | 2016-08-29 19:50 | OPR ---
DATE OF OPERATION: 08/29/2016 SURGEON: Anni Hinds DPM RADIATION OFFICER: None. PREOPERATIVE DIAGNOSES: 1. Chronic nonhealing ulcerations, bilateral feet. 2. Calcaneal deformity, right foot. 3. Anemia. 4. Generalized weakness. The patient bedbound. 5. Cerebrovascular accident. 6. Atrial fibrillation with rapid ventricular rate. 7. Diabetes. 8. History of methicillin resistant Staphylococcus aureus bacteremia and polymicrobial urinary trac t infection with methicillin resistant Staphylococcus aureus and Escherichia coli. PROCEDURE PERFORMED: Excisional debridement of skin, subcutaneous tissue and ligament to ulceration , right foot, 4 x 7 cm and excisional debridement of skin, subcutaneous tissue and ligament left abigail l, 3 x 4 cm. PATHOLOGY: None. ANESTHESIA: None. ESTIMATED BLOOD LOSS: 5 mL. COMPLICATIONS: None. INDICATION FOR PROCEDURE: Persistent ulceration, has yellowish green drainage with a fruity malodor and a persistent nonviable tissue. The patient had radiographs prior without evidence of osteomyel itis. Recommend debridement to reduce bacterial bioburden. DESCRIPTION OF PROCEDURE: The patient seen at bedside. The wounds were cleansed with antiseptic so lution using a combination of instrumentation, pickup scissors, excisional debridement performed of skin, subcutaneous tissue and ligament. Ulceration on the left posterior heel measuring 3 x 4 cm, a nd on the right 4 x 7 cm. Wound was irrigated with saline and applied dry sterile dressings. POSTOPERATIVE PLAN: The patient tolerated procedure well. Estimated blood loss of 5 mL. Hemostasi s was achieved with compression and nursing recommendations given. Will initiate a trial with genta micin ointment and can obtain cultures with the next dressing change. Dictated By: ANNI BUSTAMANTE/TIN Conf#: [id number] DID#: [id number]
[2016-08-29 20:00] VITALS: BP 135/68; RESP 20
[2016-08-29] MEDS: ATORVASTATIN 10 MG TAB PO SCH (21:25)
[2016-08-29] MEDS: INSULIN GLARGINE [LANtus] 3 ML PEN SC SCH (21:31)
[2016-08-30] MEDS: ACCUCHECK XX SCH (02:00)
[2016-08-30] MEDS: DEXTROSE 5%-0.45% NACL 1,000 ML IV SCH ×2 (03:36→19:50)
[2016-08-30] MEDS: morphine 2 MG INJ IV PRN (05:24)
[2016-08-30] MEDS: PANTOPRAZOLE (EC) 40 MG TAB PO SCH (05:24)
[2016-08-30 06:04] LABS: BASOPHILS % 0.7 % (0.0-2.0); EOSINOPHILS # 0.5 10^3/ul (0.0-0.5); EOSINOPHILS % 9.4 % (0.0-7.0); HEMATOCRIT 23.7 % (37.0-47.0); HEMOGLOBIN 7.9 g/dl (12.0-16.0); LYMPHOCYTES # 1.3 10^3/ul (0.8-2.9); LYMPHOCYTES % 27.7 % (15.0-51.0); MEAN CORPUSCULAR HEMOGLOBIN 28.9 pg (29.0-33.0); MEAN CORPUSCULAR HGB CONC 33.3 g/dl (32.0-37.0); MEAN CORPUSCULAR VOLUME 86.6 fl (82.0-101.0); MONOCYTE # 0.3 10^3/ul (0.3-0.9); MONOCYTES % 7.1 % (0.0-11.0); NEUTROPHIL # 2.7 10^3/ul (1.6-7.5); NEUTROPHILS % 55.1 % (39.0-77.0); PLATELET COUNT 202 10^3/UL (140-440); RED BLOOD COUNT 2.74 10^6/ul (4.20-5.40); RED CELL DISTRIBUTION WIDTH 17.4 % (11.5-14.5); UNCORRECTED WBC 4.8 10^3/ul (4.8-10.8); WHITE BLOOD COUNT 4.8 10^3/ul (4.8-10.8)
[2016-08-30 06:06] LABS: POTASSIUM 3.2 mmol/L (3.5-5.1)
[2016-08-30 06:08] LABS: CREATININE 0.63 mg/dl (0.44-1.00)
[2016-08-30 06:09] LABS: CALCIUM 7.4 mg/dl (8.4-10.2)
[2016-08-30 06:15] LABS: CONDITION 1; LH ANALYZER COMMENTS 1; PHOSPHORUS 3.3 mg/dl (2.5-4.9)
[2016-08-30 06:16] LABS: MAGNESIUM 1.7 mg/dl (1.7-2.5)
[2016-08-30] MEDS: DIPHENHYDRAMINE 50 MG INJ IV PRN (06:31)
[2016-08-30] MEDS ORDERED: POTASSIUM CHLORIDE 250 ML IVPB ONE (07:00)
[2016-08-30 08:01] VITALS: BP 138/67; RESP 20
[2016-08-30] MEDS: INSULIN ASPART [NOVOLOG] 3 ML PEN SC SCH ×4 (08:03→21:00)
[2016-08-30] MEDS: COLLAGENASE 30 GM TUBE TOP SCH (09:00)
[2016-08-30] MEDS: VANCOMYCIN 1 GM in NS 250 ML IVPB SCH (09:11)
[2016-08-30] MEDS: METOPROLOL 50 MG TAB PO SCH ×2 (09:12→21:23)
[2016-08-30] MEDS: RIFAMPIN 300 MG CAP PO SCH (09:12)
[2016-08-30] MEDS: LINAGLIPTIN 5 MG TABLET PO SCH (09:12)
[2016-08-30] MEDS: METHIMAZOLE 5 MG TAB PO SCH (09:12)
[2016-08-30] MEDS: FLUCONAZOLE 100 MG TAB NGT SCH (09:12)
[2016-08-30] MEDS: LORATADINE 10 MG TAB PO SCH (09:12)
[2016-08-30] MEDS: GENTAMICIN 0.1% 15 GM OINT TOP SCH (09:13)
[2016-08-30] MEDS: MUPIROCIN 2% 22 GM OINT TOP SCH ×2 (09:13→21:23)
--- NOTE | 2016-08-30 10:45 | PN ---
Date/Time of Note Date/Time of Note DATE: 08/30/16 TIME: 10:44 Assessment/Plan VTE Prophylaxis VTE Prophylaxis Intervention: SCD's Lines/Catheters [facility] P[facility] Line Central line still needed: Yes Urinary Cath still in place: Yes Reason Cath still needed: skin wounds contaminated by urine Assessment/Plan Chief Complaint/Hosp Course 1. Upper gastrointestinal bleeding. The patient was evaluated by gastroenterology. Esophagogastroduodenoscopy revealed a Faye-Johnson tear, chronic gastritis, and nodular duodenitis. Continue proton pump inhibitors. 2. Atrial fibrillation with rapid ventricular response. Currently, the rate is controlled. No anticoagulation because of underlying gastrointestinal bleed. Cardiology following. 3. Sepsis with underlying MRSA bacteremia, infected pressure ulcers, and urinary tract infection. Continue antibiotics. Infectious disease is on the case. 4. Infected B/L heel pressure ulcers. Seen and evaluated by podiatry. S/P local debridement of the left heel ulcer on 08/20/2016 with repeat debridement on 08/29/2016. 5. Essential hypertension. Continue antihypertensives. 6. Peripheral vascular disease. Monitor for acute changes. Anticoagulation on hold because of current gastrointestinal bleed. 7. Dyslipidemia. Continue statins. Fasting lipid panel showing low HDL and low total cholesterol. 8. Type 2 diabetes mellitus. Hemoglobin A1c 9.8. Continue sliding scale insulin. 9. Left upper extremity edema. Largely resolved. Left upper extremity venous Doppler study negative for any deep venous thrombosis. Continue elevation of left upper extremity. 10. Multiple pressure ulcers. Continue local wound care. Wound care consult. 11. Hyperthyroidism. The patient was started on methimazole. 12. MRSA colonization of the nares. Continue Bactroban. 13. Fluid, electrolytes and nutrition. Carbohydrate controlled, low- cholesterol diet. 14. DVT prophylaxis with serial sequential compression devices. No anticoagulation because of underlying GI bleed. 15. Gastrointestinal prophylaxis with proton pump inhibitors. PLAN: Replete potassium. Continue antibiotics as per infectious diseases. Continue in-house monitoring. Case discussed with Dr. Ying. Problems: Subjective 24 Hr Interval Summary Free Text/Dictation Vital signs stable. The patient remains afebrile. Exam/Review of Systems Vital Signs Vitals Vital Signs Date Time Temp Pulse Resp B/P Pulse Ox O2 Delivery O2 Flow Rate FiO2 08/30/16 08:01 97.6 94 20 138/67 98 08/30/16 04:45 2.0 08/29/16 21:30 Nasal Cannula Intake and Output 08/29/16 08/29/16 08/30/16 15:00 23:00 07:00 Intake Total 890 ml 1210 ml Output Total 1450 ml 800 ml Balance -560 ml 410 ml Exam GENERAL: This is a frail-looking elderly female lying in bed in no apparent distress. HEENT: Head normocephalic and atraumatic. Eyes: Anicteric sclerae. Conjunctivae clear. ENT: Nasal septum is midline. Oral mucosa is dry. NECK: Supple. No JVD noticed. RESPIRATORY: Bilaterally diminished breath sounds. No adventitious breath sounds. No use of accessory muscles of respiration. CARDIAC: Irregularly irregular rhythm. Systolic murmur. ABDOMEN: Soft, nontender and nondistended. Bowel sounds hypoactive in all 4 quadrants. GENITOURINARY: Deferred. EXTREMITIES: No cyanosis, no clubbing. Bilateral lower extremity 1+ pitting edema. Bilateral heel dressings. Peripheral pulses are diminished. NEUROLOGIC: The patient is awake and alert and oriented x1 to 2. Results Result Diagram: 08/30/1651808/30/16518 Results 24 hrs Laboratory Tests Test 08/29/16 11:40 08/29/16 17:02 08/29/16 21:27 08/30/16 05:19 Bedside Glucose 83 72 140 Anion Gap 9 Basophils # 0.0 Basophils % 0.7 Blood Morphology Comment Blood Urea Nitrogen 6 L Calcium Level 7.4 L Carbon Dioxide Level 32 H Chloride Level 100 Creatinine 0.63 Eosinophils # 0.5 Eosinophils % 9.4 H Glucose Level 75 Hematocrit 23.7 L Hemoglobin 7.9 L Lymphocytes # 1.3 Lymphocytes % 27.7 Magnesium Level 1.7 Mean Corpuscular Hemoglobin 28.9 L Mean Corpuscular Hemoglobin Concent 33.3 Mean Corpuscular Volume 86.6 Mean Platelet Volume 8.0 Monocytes # 0.3 Monocytes % 7.1 Neutrophils # 2.7 Neutrophils % 55.1 Nucleated Red Blood Cells # 0.0 Nucleated Red Blood Cells % 0.0 Phosphorus Level 3.3 Platelet Count 202 Potassium Level 3.2 L Red Blood Count 2.74 L Red Cell Distribution Width 17.4 H Sodium Level 138 White Blood Count 4.8 Test 08/30/16 07:43 Bedside Glucose 73 Medications Medications Current Medications Lorazepam (Ativan) 0.5 mg Q6H PRN IV ANXIETY Last administered on 08/25/16 02: 57; Admin Dose 0.5 MG; Start 08/13/16 at 16:00 Ondansetron HCl (Zofran Inj) 4 mg Q6H PRN IV NAUSEA AND/OR VOMITING Last administered on 08/27/16 03:37; Admin Dose 4 MG; Start 08/13/16 at 16:00 Nitroglycerin (Nitroglycerin (Sl Tab) 0.4 Mg) 1 tab Q5M PRN SL CHEST PAIN Last administered on 08/21/16 23:04; Admin Dose 1 TAB; Start 08/13/16 at 16:00 Acetaminophen (Tylenol Supp) 650 mg Q6H PRN [place] PAIN LEVEL 1-3 OR FEVER; Start 08/13/16 at 16:00 Morphine Sulfate (morphine) 2 mg Q4H PRN IV PAIN LEVEL 7-10 Last administered on 08/30/16 05:24; Admin Dose 2 MG; Start 08/13/16 at 16:00 Bisacodyl (Dulcolax) 5 mg DAILY PRN PO CONSTIPATION Last administered on 12:18; Admin Dose 5 MG; Start 08/13/16 at 16:00 Miscellaneous Information 1 ea NOTE XX ; Start 08/13/16 at 17:30 Glucose (Glutose) 15 gm Q15M PRN PO DECREASED GLUCOSE; Start 08/13/16 at 17:30 Glucose (Glutose) 22.5 gm Q15M PRN PO DECREASED GLUCOSE; Start 08/13/16 at 17:30 Dextrose (D50w Syringe) 25 ml Q15M PRN IV DECREASED GLUCOSE Last administered on 08/29/16 08:13; Admin Dose 25 ML; Start 08/13/16 at 17:30 Dextrose (D50w Syringe) 50 ml Q15M PRN IV DECREASED GLUCOSE Last administered on 08/23/16 06:16; Admin Dose 50 ML; Start 08/13/16 at 17:30 Glucagon (Glucagen) 1 mg Q15M PRN IM DECREASED GLUCOSE; Start 08/13/16 at 17:30 Glucose (Glutose) 15 gm Q15M PRN BUCCAL DECREASED GLUCOSE; Start 08/13/16 at 17: 30 Mupirocin (Bactroban) 1 applic BID TOP Last administered on 08/30/16 09:13; Admin Dose 1 APPLIC; Start 08/15/16 at 13:00 Atorvastatin Calcium (Lipitor) 10 mg QHS PO Last administered on 08/29/16 21: 25; Admin Dose 10 MG; Start 08/15/16 at 21:00 Metoprolol Tartrate (Lopressor) 50 mg BID PO Last administered on 08/30/16 09: 12; Admin Dose 50 MG; Start 08/15/16 at 15:00 Diagnostic Test (Pha) (Accucheck) 1 ea 02 XX Last administered on 08/28/16 02: 16; Admin Dose 1 EA; Start 08/16/16 at 02:00 Methimazole (Tapazole) 20 mg DAILY PO Last administered on 08/30/16 09:12; Admin Dose 20 MG; Start 08/15/16 at 15:00 Linagliptin (Tradjenta) 5 mg DAILY PO Last administered on 08/30/16 09:12; Admin Dose 5 MG; Start 08/15/16 at 18:30 Rifampin 600 mg 600 mg DAILY PO Last administered on 08/30/16 09:12; Admin Dose 600 MG; Start 08/16/16 at 16:30 Ceftriaxone Sodium (Rocephin) 50 ml @ 100 mls/hr Q24H IVPB Last administered on 08/29/16 16:59; Admin Dose 100 MLS/HR; Start 08/16/16 at 15:30 IV Flush (NS 10 ml) 10 ml PRN PRN IV IV PROTOCOL; Start 08/16/16 at 15:30 Collagenase (Santyl) 1 applic DAILY TOP Last administered on 08/29/16 09:43; Admin Dose 1 APPLIC; Start 08/17/16 at 09:00 Pantoprazole (Protonix Tab) 40 mg DAILY@06 PO Last administered on 08/30/16 05 :24; Admin Dose 40 MG; Start 08/20/16 at 06:00 Diphenhydramine HCl (Benadryl) 25 mg Q6H PRN IV ITCHING Last administered on 06:31; Admin Dose 25 MG; Start 08/22/16 at 12:00 Fluconazole (Diflucan) 100 mg DAILY NGT Last administered on 08/30/16 09:12; Admin Dose 100 MG; Start 08/24/16 at 09:00 Loratadine (Claritin) 10 mg DAILY PO Last administered on 08/30/16 09:12; Admin Dose 10 MG; Start 08/23/16 at 14:30 Insulin Glargine 10 unit 10 unit HS SC Last administered on 08/29/16 21:31; Admin Dose 10 UNIT; Start 08/23/16 at 21:00 Vancomycin HCl (Vancocin) 250 ml @ 125 mls/hr Q24H IVPB Last administered on 09:11; Admin Dose 125 MLS/HR; Start 08/25/16 at 09:00 Hydroxyzine HCl 25 mg 25 mg Q6H PRN PO ITCHING Last administered on 08/28/16 13:24; Admin Dose 25 MG; Start 08/26/16 at 21:00 Dextrose/Sodium Chloride (D5-1/2ns) 1,000 ml @ 60 mls/hr [id number] IV Last administered on 08/30/16 03:36; Admin Dose 60 MLS/HR; Start 08/29/16 at 10:30 Gentamicin Sulfate 1 applic 1 applic DAILY TOP Last administered on 08/30/16 09:13; Admin Dose 1 APPLIC; Start 08/29/16 at 18:00 Potassium Chloride (KCl 40 MEQ/250 ML NS) 250 ml @ 62.5 mls/hr ONCE ONCE IVPB ; Start 08/30/16 at 07:00; Stop 08/30/16 at 10:59 DANN HAY NP Aug 30, 2016 10:45 DANN HAY NP Aug 30, 2016 10:45
[2016-08-30] MEDS ORDERED: MAGNESIUM SULFATE 2 GM/50 ML 50 ML IVPB ONE (12:00)
[2016-08-30] MEDS ORDERED: ALBUTEROL/IPRATROPIUM (NEB) 3 ML AMP ONE (12:10)
--- NOTE | 2016-08-30 13:28 | PN ---
Date/Time of Note Date/Time of Note DATE: 08/30/16 TIME: 13:27 Assessment/Plan VTE Prophylaxis VTE Prophylaxis Intervention: SCD's Lines/Catheters IV Catheter Type (from Nrs): PICC Line Central line still needed: No Urinary Cath still in place: Yes Reason Cath still needed: urinary retention Assessment/Plan Assessment/Plan Sepsis Atrial fibrillation with rapid ventricular rates, improved Acute blood loss anemia/GI bleed Preserved ejection fraction Hyperthyroidism History of hypertension History of CVA Diabetes -heart rate trend overall stable, continue lopressor and BP tolerates, no anticoagulation at current time secondary to GI bleed. Subjective 24 Hr Interval Summary Free Text/Dictation The patient with no change Exam/Review of Systems Vital Signs Vitals Vital Signs Date Time Temp Pulse Resp B/P Pulse Ox O2 Delivery O2 Flow Rate FiO2 08/30/16 08:01 97.6 94 20 138/67 98 08/30/16 04:45 2.0 08/29/16 21:30 Nasal Cannula Intake and Output 08/29/16 08/29/16 08/30/16 15:00 23:00 07:00 Intake Total 890 ml 1210 ml Output Total 1450 ml 800 ml Balance -560 ml 410 ml Results Result Diagram: 08/30/16 0519 08/30/16 0519 Results 24 hrs Laboratory Tests Test 08/29/16 17:02 08/29/16 21:27 08/30/16 05:19 08/30/16 07:43 Bedside Glucose 72 140 73 Anion Gap 9 Basophils # 0.0 Basophils % 0.7 Blood Morphology Comment Blood Urea Nitrogen 6 L Calcium Level 7.4 L Carbon Dioxide Level 32 H Chloride Level 100 Creatinine 0.63 Eosinophils # 0.5 Eosinophils % 9.4 H Glucose Level 75 Hematocrit 23.7 L Hemoglobin 7.9 L Lymphocytes # 1.3 Lymphocytes % 27.7 Magnesium Level 1.7 Mean Corpuscular Hemoglobin 28.9 L Mean Corpuscular Hemoglobin Concent 33.3 Mean Corpuscular Volume 86.6 Mean Platelet Volume 8.0 Monocytes # 0.3 Monocytes % 7.1 Neutrophils # 2.7 Neutrophils % 55.1 Nucleated Red Blood Cells # 0.0 Nucleated Red Blood Cells % 0.0 Phosphorus Level 3.3 Platelet Count 202 Potassium Level 3.2 L Red Blood Count 2.74 L Red Cell Distribution Width 17.4 H Sodium Level 138 White Blood Count 4.8 Test 08/30/16 11:44 Bedside Glucose 129 Medications Medications Current Medications Lorazepam (Ativan) 0.5 mg Q6H PRN IV ANXIETY Last administered on 08/25/16 02: 57; Admin Dose 0.5 MG; Start 08/13/16 at 16:00 Ondansetron HCl (Zofran Inj) 4 mg Q6H PRN IV NAUSEA AND/OR VOMITING Last administered on 08/27/16 03:37; Admin Dose 4 MG; Start 08/13/16 at 16:00 Nitroglycerin (Nitroglycerin (Sl Tab) 0.4 Mg) 1 tab Q5M PRN SL CHEST PAIN Last administered on 08/21/16 23:04; Admin Dose 1 TAB; Start 08/13/16 at 16:00 Acetaminophen (Tylenol Supp) 650 mg Q6H PRN [place] PAIN LEVEL 1-3 OR FEVER; Start 08/13/16 at 16:00 Morphine Sulfate (morphine) 2 mg Q4H PRN IV PAIN LEVEL 7-10 Last administered on 08/30/16 05:24; Admin Dose 2 MG; Start 08/13/16 at 16:00 Bisacodyl (Dulcolax) 5 mg DAILY PRN PO CONSTIPATION Last administered on 12:18; Admin Dose 5 MG; Start 08/13/16 at 16:00 Miscellaneous Information 1 ea NOTE XX ; Start 08/13/16 at 17:30 Glucose (Glutose) 15 gm Q15M PRN PO DECREASED GLUCOSE; Start 08/13/16 at 17:30 Glucose (Glutose) 22.5 gm Q15M PRN PO DECREASED GLUCOSE; Start 08/13/16 at 17:30 Dextrose (D50w Syringe) 25 ml Q15M PRN IV DECREASED GLUCOSE Last administered on 08/29/16 08:13; Admin Dose 25 ML; Start 08/13/16 at 17:30 Dextrose (D50w Syringe) 50 ml Q15M PRN IV DECREASED GLUCOSE Last administered on 08/23/16 06:16; Admin Dose 50 ML; Start 08/13/16 at 17:30 Glucagon (Glucagen) 1 mg Q15M PRN IM DECREASED GLUCOSE; Start 08/13/16 at 17:30 Glucose (Glutose) 15 gm Q15M PRN BUCCAL DECREASED GLUCOSE; Start 08/13/16 at 17: 30 Mupirocin (Bactroban) 1 applic BID TOP Last administered on 08/30/16 09:13; Admin Dose 1 APPLIC; Start 08/15/16 at 13:00 Atorvastatin Calcium (Lipitor) 10 mg QHS PO Last administered on 08/29/16 21: 25; Admin Dose 10 MG; Start 08/15/16 at 21:00 Metoprolol Tartrate (Lopressor) 50 mg BID PO Last administered on 08/30/16 09: 12; Admin Dose 50 MG; Start 08/15/16 at 15:00 Diagnostic Test (Pha) (Accucheck) 1 ea 02 XX Last administered on 08/28/16 02: 16; Admin Dose 1 EA; Start 08/16/16 at 02:00 Methimazole (Tapazole) 20 mg DAILY PO Last administered on 08/30/16 09:12; Admin Dose 20 MG; Start 08/15/16 at 15:00 Linagliptin (Tradjenta) 5 mg DAILY PO Last administered on 08/30/16 09:12; Admin Dose 5 MG; Start 08/15/16 at 18:30 Rifampin 600 mg 600 mg DAILY PO Last administered on 08/30/16 09:12; Admin Dose 600 MG; Start 08/16/16 at 16:30 Ceftriaxone Sodium (Rocephin) 50 ml @ 100 mls/hr Q24H IVPB Last administered on 08/29/16 16:59; Admin Dose 100 MLS/HR; Start 08/16/16 at 15:30 IV Flush (NS 10 ml) 10 ml PRN PRN IV IV PROTOCOL; Start 08/16/16 at 15:30 Collagenase (Santyl) 1 applic DAILY TOP Last administered on 08/29/16 09:43; Admin Dose 1 APPLIC; Start 08/17/16 at 09:00 Pantoprazole (Protonix Tab) 40 mg DAILY@06 PO Last administered on 08/30/16 05 :24; Admin Dose 40 MG; Start 08/20/16 at 06:00 Diphenhydramine HCl (Benadryl) 25 mg Q6H PRN IV ITCHING Last administered on 06:31; Admin Dose 25 MG; Start 08/22/16 at 12:00 Fluconazole (Diflucan) 100 mg DAILY NGT Last administered on 08/30/16 09:12; Admin Dose 100 MG; Start 08/24/16 at 09:00 Loratadine (Claritin) 10 mg DAILY PO Last administered on 08/30/16 09:12; Admin Dose 10 MG; Start 08/23/16 at 14:30 Insulin Glargine 10 unit 10 unit HS SC Last administered on 08/29/16 21:31; Admin Dose 10 UNIT; Start 08/23/16 at 21:00 Vancomycin HCl (Vancocin) 250 ml @ 125 mls/hr Q24H IVPB Last administered on 09:11; Admin Dose 125 MLS/HR; Start 08/25/16 at 09:00 Hydroxyzine HCl 25 mg 25 mg Q6H PRN PO ITCHING Last administered on 08/28/16 13:24; Admin Dose 25 MG; Start 08/26/16 at 21:00 Dextrose/Sodium Chloride (D5-1/2ns) 1,000 ml @ 60 mls/hr [id number] IV Last administered on 08/30/16 03:36; Admin Dose 60 MLS/HR; Start 08/29/16 at 10:30 Gentamicin Sulfate 1 applic 1 applic DAILY TOP Last administered on 08/30/16 09:13; Admin Dose 1 APPLIC; Start 08/29/16 at 18:00 Magnesium Sulfate (Magnesium Sulfate 2 Gm/50 ml) 50 ml @ 25 mls/hr ONCE ONCE IVPB ; Start 08/30/16 at 12:00; Stop 08/30/16 at 13:59 Miscellaneous Information (*Rx Drug Level Order Reminder*) VANCOMYCIN TROUGH AT 0800 ONCE ONCE XX ; Start 08/31/16 at 08:00; Stop 08/31/16 at 08:01 KIKE WRIGHT MD Aug 30, 2016 13:28
--- NOTE | 2016-08-30 14:43 | CONS ---
Date/Time of Note Date/Time of Note DATE: 08/30/16 TIME: 14:41 Assessment/Plan Assessment/Plan Chief Complaint/Hosp Course Subjective: No acute changes, awake, looks comfortable, afebrile MICROBIOLOGY: Blood cultures on admission grew MRSA. Urine culture grew E. coli and MRSA. Nares swab came back positive for MRSA. Wound culture growing MRSA/GNR/yeast ANTIMICROBIALS: 1. Vancomycin. 2. Rifampin 3. Rocephin 4. Diflucan INDWELLINGS: Lundy catheter. PHYSICAL EXAMINATION: GENERAL: Fragile, elderly woman who is lying comfortably in bed. Patient is awake and follows commands. HEENT: Head atraumatic, normocephalic. Sclerae anicteric. Buccal mucosa dry. NECK: Supple, trachea midline. CHEST: Rise symmetrical. Breath sounds clear, diminished to bases. HEART: S1, S2. ABDOMEN: Soft. Bowel tones present. EXTREMITIES: Left upper extremity edema. The patient also has anasarca. ASSESSMENT: 1. S/p sepsis. 2. Methicillin-resistant Staphylococcus aureus bacteremia 2 to below. 3. Polymicrobial urinary tract infection with urine culture growing MRSA and E. coli. 4. Bilateral heel cellulitis with chronic wounds==> s/p debridement 08/20, 08/29 5. Methicillin-resistant Staphylococcus aureus nares colonization. 6. Anemia, status post hematemesis and EGD that revealed Faye-Johnson tear and chronic gastritis. 7. History of atrial fibrillation and congestive heart failure. 8. History of cerebrovascular accident. 9. Diabetes. PLAN: The patient remains stable, s/p repeat debridement yesterday, continue IV Vanco for 7 more days, then change to PO Bactrim for 2 more weeks, local wound care per podiatry rec-s, continue other abx [facility] staff Problems: Consultation Date/Type/Reason Admit Date/Time Aug 14, 2016 at 01:54 Initial Consult Date 08/15/16 Type of Consultation: id Referring Provider: SÁNCHEZ WOMACK MD Exam/Review of Systems Vital Signs Vitals Vital Signs Date Time Temp Pulse Resp B/P Pulse Ox O2 Delivery O2 Flow Rate FiO2 08/30/16 08:01 97.6 94 20 138/67 98 08/30/16 04:45 2.0 08/29/16 21:30 Nasal Cannula Intake and Output 08/29/16 08/29/1608/30/17 15:00 23:00 07:00 Intake Total 890 ml 1210 ml Output Total 1450 ml 800 ml Balance -560 ml 410 ml Results Result Diagram: 08/30/1651808/30/16518 Results 24 hrs Laboratory Tests Test 08/29/16 17:02 08/29/16 21:27 08/30/16 05:19 08/30/16 07:43 Bedside Glucose 72 140 73 Anion Gap 9 Basophils # 0.0 Basophils % 0.7 Blood Morphology Comment Blood Urea Nitrogen 6 L Calcium Level 7.4 L Carbon Dioxide Level 32 H Chloride Level 100 Creatinine 0.63 Eosinophils # 0.5 Eosinophils % 9.4 H Glucose Level 75 Hematocrit 23.7 L Hemoglobin 7.9 L Lymphocytes # 1.3 Lymphocytes % 27.7 Magnesium Level 1.7 Mean Corpuscular Hemoglobin 28.9 L Mean Corpuscular Hemoglobin Concent 33.3 Mean Corpuscular Volume 86.6 Mean Platelet Volume 8.0 Monocytes # 0.3 Monocytes % 7.1 Neutrophils # 2.7 Neutrophils % 55.1 Nucleated Red Blood Cells # 0.0 Nucleated Red Blood Cells % 0.0 Phosphorus Level 3.3 Platelet Count 202 Potassium Level 3.2 L Red Blood Count 2.74 L Red Cell Distribution Width 17.4 H Sodium Level 138 White Blood Count 4.8 Test 08/30/16 11:44 Bedside Glucose 129 Medications Medications Current Medications Lorazepam (Ativan) 0.5 mg Q6H PRN IV ANXIETY Last administered on 08/25/16 02: 57; Admin Dose 0.5 MG; Start 08/13/16 at 16:00 Ondansetron HCl (Zofran Inj) 4 mg Q6H PRN IV NAUSEA AND/OR VOMITING Last administered on 08/27/16 03:37; Admin Dose 4 MG; Start 08/13/16 at 16:00 Nitroglycerin (Nitroglycerin (Sl Tab) 0.4 Mg) 1 tab Q5M PRN SL CHEST PAIN Last administered on 08/21/16 23:04; Admin Dose 1 TAB; Start 08/13/16 at 16:00 Acetaminophen (Tylenol Supp) 650 mg Q6H PRN [place] PAIN LEVEL 1-3 OR FEVER; Start 08/13/16 at 16:00 Morphine Sulfate (morphine) 2 mg Q4H PRN IV PAIN LEVEL 7-10 Last administered on 08/30/16 05:24; Admin Dose 2 MG; Start 08/13/16 at 16:00 Bisacodyl (Dulcolax) 5 mg DAILY PRN PO CONSTIPATION Last administered on 12:18; Admin Dose 5 MG; Start 08/13/16 at 16:00 Miscellaneous Information 1 ea NOTE XX ; Start 08/13/16 at 17:30 Glucose (Glutose) 15 gm Q15M PRN PO DECREASED GLUCOSE; Start 08/13/16 at 17:30 Glucose (Glutose) 22.5 gm Q15M PRN PO DECREASED GLUCOSE; Start 08/13/16 at 17:30 Dextrose (D50w Syringe) 25 ml Q15M PRN IV DECREASED GLUCOSE Last administered on 08/29/16 08:13; Admin Dose 25 ML; Start 08/13/16 at 17:30 Dextrose (D50w Syringe) 50 ml Q15M PRN IV DECREASED GLUCOSE Last administered on 08/23/16 06:16; Admin Dose 50 ML; Start 08/13/16 at 17:30 Glucagon (Glucagen) 1 mg Q15M PRN IM DECREASED GLUCOSE; Start 08/13/16 at 17:30 Glucose (Glutose) 15 gm Q15M PRN BUCCAL DECREASED GLUCOSE; Start 08/13/16 at 17: 30 Mupirocin (Bactroban) 1 applic BID TOP Last administered on 08/30/16 09:13; Admin Dose 1 APPLIC; Start 08/15/16 at 13:00 Atorvastatin Calcium (Lipitor) 10 mg QHS PO Last administered on 08/29/16 21: 25; Admin Dose 10 MG; Start 08/15/16 at 21:00 Metoprolol Tartrate (Lopressor) 50 mg BID PO Last administered on 08/30/16 09: 12; Admin Dose 50 MG; Start 08/15/16 at 15:00 Diagnostic Test (Pha) (Accucheck) 1 ea 02 XX Last administered on 08/28/16 02: 16; Admin Dose 1 EA; Start 08/16/16 at 02:00 Methimazole (Tapazole) 20 mg DAILY PO Last administered on 08/30/16 09:12; Admin Dose 20 MG; Start 08/15/16 at 15:00 Linagliptin (Tradjenta) 5 mg DAILY PO Last administered on 08/30/16 09:12; Admin Dose 5 MG; Start 08/15/16 at 18:30 Rifampin 600 mg 600 mg DAILY PO Last administered on 08/30/16 09:12; Admin Dose 600 MG; Start 08/16/16 at 16:30 Ceftriaxone Sodium (Rocephin) 50 ml @ 100 mls/hr Q24H IVPB Last administered on 08/29/16 16:59; Admin Dose 100 MLS/HR; Start 08/16/16 at 15:30 IV Flush (NS 10 ml) 10 ml PRN PRN IV IV PROTOCOL; Start 08/16/16 at 15:30 Collagenase (Santyl) 1 applic DAILY TOP Last administered on 08/29/16 09:43; Admin Dose 1 APPLIC; Start 08/17/16 at 09:00 Pantoprazole (Protonix Tab) 40 mg DAILY@06 PO Last administered on 08/30/16 05 :24; Admin Dose 40 MG; Start 08/20/16 at 06:00 Diphenhydramine HCl (Benadryl) 25 mg Q6H PRN IV ITCHING Last administered on 06:31; Admin Dose 25 MG; Start 08/22/16 at 12:00 Fluconazole (Diflucan) 100 mg DAILY NGT Last administered on 08/30/16 09:12; Admin Dose 100 MG; Start 08/24/16 at 09:00 Loratadine (Claritin) 10 mg DAILY PO Last administered on 08/30/16 09:12; Admin Dose 10 MG; Start 08/23/16 at 14:30 Insulin Glargine 10 unit 10 unit HS SC Last administered on 08/29/16 21:31; Admin Dose 10 UNIT; Start 08/23/16 at 21:00 Vancomycin HCl (Vancocin) 250 ml @ 125 mls/hr Q24H IVPB Last administered on 09:11; Admin Dose 125 MLS/HR; Start 08/25/16 at 09:00 Hydroxyzine HCl 25 mg 25 mg Q6H PRN PO ITCHING Last administered on 08/28/16 13:24; Admin Dose 25 MG; Start 08/26/16 at 21:00 Dextrose/Sodium Chloride (D5-1/2ns) 1,000 ml @ 60 mls/hr [id number] IV Last administered on 08/30/16 03:36; Admin Dose 60 MLS/HR; Start 08/29/16 at 10:30 Gentamicin Sulfate (Gentamicin 0.1% Oint) 1 applic DAILY TOP Last administered on 08/30/16 09:13; Admin Dose 1 APPLIC; Start 08/29/16 at 18:00 Miscellaneous Information (*Rx Drug Level Order Reminder*) VANCOMYCIN TROUGH AT 0800 ONCE ONCE XX ; Start 08/31/16 at 08:00; Stop 08/31/16 at 08:01 DEMAR VILLALOBOS NP Aug 30, 2016 14:43
[2016-08-30] MEDS: CEFTRIAXONE 1 GM/50 ML (PMX) 50 ML IVPB SCH (15:36)
[2016-08-30 19:48] VITALS: BP 147/64; RESP 18
[2016-08-30] MEDS: ATORVASTATIN 10 MG TAB PO SCH (21:23)
[2016-08-30] MEDS: INSULIN GLARGINE [LANtus] 3 ML PEN SC SCH (21:26)
[2016-08-31] MEDS: morphine 2 MG INJ IV PRN ×2 (01:24→16:02)
[2016-08-31] MEDS: ACCUCHECK XX SCH (01:31)
[2016-08-31] MEDS: DEXTROSE 5%-0.45% NACL 1,000 ML IV SCH (03:26)
[2016-08-31] MEDS: PANTOPRAZOLE (EC) 40 MG TAB PO SCH (05:56)
[2016-08-31 07:54] VITALS: BP 154/64; RESP 18
--- NOTE | 2016-08-31 08:13 | PN ---
Date/Time of Note Date/Time of Note DATE: 08/31/16 TIME: 08:13 Assessment/Plan VTE Prophylaxis VTE Prophylaxis Intervention: SCD's Lines/Catheters IV Catheter Type (from Nrsg): PICC Line Central line still needed: No Urinary Cath still in place: Yes Reason Cath still needed: urinary retention Assessment/Plan Assessment/Plan Sepsis Atrial fibrillation with rapid ventricular rates, improved Acute blood loss anemia/GI bleed Preserved ejection fraction Hyperthyroidism History of hypertension History of CVA Diabetes -heart rate trend overall stable, continue lopressor and BP tolerates, no anticoagulation at current time secondary to GI bleed. Subjective 24 Hr Interval Summary Free Text/Dictation The patient with no cahgne Exam/Review of Systems Vital Signs Vitals Vital Signs Date Time Temp Pulse Resp B/P Pulse Ox O2 Delivery O2 Flow Rate FiO2 08/31/16 08:10 2.0 08/31/16 07:54 97.9 99 18 154/64 97 08/31/16 00:25 Nasal Cannula Intake and Output 08/30/16 08/30/16 08/31/16 15:00 23:00 07:00 Intake Total 1200 ml 1050 ml Output Total 750 ml 500 ml Balance 450 ml 550 ml Results Result Diagram: 08/30/16 0519 08/30/16 0519 Results 24 hrs Laboratory Tests Test 08/30/16 11:44 08/30/16 17:06 08/30/16 21:02 08/31/16 08:04 Bedside Glucose 129 151 144 178 Medications Medications Current Medications Lorazepam (Ativan) 0.5 mg Q6H PRN IV ANXIETY Last administered on 08/25/16 02: 57; Admin Dose 0.5 MG; Start 08/13/16 at 16:00 Ondansetron HCl (Zofran Inj) 4 mg Q6H PRN IV NAUSEA AND/OR VOMITING Last administered on 08/27/16 03:37; Admin Dose 4 MG; Start 08/13/16 at 16:00 Nitroglycerin (Nitroglycerin (Sl Tab) 0.4 Mg) 1 tab Q5M PRN SL CHEST PAIN Last administered on 08/21/16 23:04; Admin Dose 1 TAB; Start 08/13/16 at 16:00 Acetaminophen (Tylenol Supp) 650 mg Q6H PRN [place] PAIN LEVEL 1-3 OR FEVER; Start 08/13/16 at 16:00 Morphine Sulfate (morphine) 2 mg Q4H PRN IV PAIN LEVEL 7-10 Last administered on 08/31/16 01:24; Admin Dose 2 MG; Start 08/13/16 at 16:00 Bisacodyl (Dulcolax) 5 mg DAILY PRN PO CONSTIPATION Last administered on 12:18; Admin Dose 5 MG; Start 08/13/16 at 16:00 Miscellaneous Information 1 ea NOTE XX ; Start 08/13/16 at 17:30 Glucose (Glutose) 15 gm Q15M PRN PO DECREASED GLUCOSE; Start 08/13/16 at 17:30 Glucose (Glutose) 22.5 gm Q15M PRN PO DECREASED GLUCOSE; Start 08/13/16 at 17:30 Dextrose (D50w Syringe) 25 ml Q15M PRN IV DECREASED GLUCOSE Last administered on 08/29/16 08:13; Admin Dose 25 ML; Start 08/13/16 at 17:30 Dextrose (D50w Syringe) 50 ml Q15M PRN IV DECREASED GLUCOSE Last administered on 08/23/16 06:16; Admin Dose 50 ML; Start 08/13/16 at 17:30 Glucagon (Glucagen) 1 mg Q15M PRN IM DECREASED GLUCOSE; Start 08/13/16 at 17:30 Glucose (Glutose) 15 gm Q15M PRN BUCCAL DECREASED GLUCOSE; Start 08/13/16 at 17: 30 Mupirocin (Bactroban) 1 applic BID TOP Last administered on 08/30/16 21:23; Admin Dose 1 APPLIC; Start 08/15/16 at 13:00 Atorvastatin Calcium (Lipitor) 10 mg QHS PO Last administered on 08/30/16 21: 23; Admin Dose 10 MG; Start 08/15/16 at 21:00 Metoprolol Tartrate (Lopressor) 50 mg BID PO Last administered on 08/30/16 21: 23; Admin Dose 50 MG; Start 08/15/16 at 15:00 Diagnostic Test (Pha) (Accucheck) 1 ea 02 XX Last administered on 08/28/16 02: 16; Admin Dose 1 EA; Start 08/16/16 at 02:00 Methimazole (Tapazole) 20 mg DAILY PO Last administered on 08/30/16 09:12; Admin Dose 20 MG; Start 08/15/16 at 15:00 Linagliptin (Tradjenta) 5 mg DAILY PO Last administered on 08/30/16 09:12; Admin Dose 5 MG; Start 08/15/16 at 18:30 Rifampin 600 mg 600 mg DAILY PO Last administered on 08/30/16 09:12; Admin Dose 600 MG; Start 08/16/16 at 16:30 Ceftriaxone Sodium (Rocephin) 50 ml @ 100 mls/hr Q24H IVPB Last administered on 08/30/16 15:36; Admin Dose 100 MLS/HR; Start 08/16/16 at 15:30 IV Flush (NS 10 ml) 10 ml PRN PRN IV IV PROTOCOL; Start 08/16/16 at 15:30 Collagenase (Santyl) 1 applic DAILY TOP Last administered on 08/30/16 09:00; Admin Dose 1 APPLIC; Start 08/17/16 at 09:00 Pantoprazole (Protonix Tab) 40 mg DAILY@06 PO Last administered on 08/31/16 05 :56; Admin Dose 40 MG; Start 08/20/16 at 06:00 Diphenhydramine HCl (Benadryl) 25 mg Q6H PRN IV ITCHING Last administered on 06:31; Admin Dose 25 MG; Start 08/22/16 at 12:00 Fluconazole (Diflucan) 100 mg DAILY NGT Last administered on 08/30/16 09:12; Admin Dose 100 MG; Start 08/24/16 at 09:00 Loratadine (Claritin) 10 mg DAILY PO Last administered on 08/30/16 09:12; Admin Dose 10 MG; Start 08/23/16 at 14:30 Insulin Glargine 10 unit 10 unit HS SC Last administered on 08/30/16 21:26; Admin Dose 10 UNIT; Start 08/23/16 at 21:00 Vancomycin HCl (Vancocin) 250 ml @ 125 mls/hr Q24H IVPB Last administered on 09:11; Admin Dose 125 MLS/HR; Start 08/25/16 at 09:00 Hydroxyzine HCl 25 mg 25 mg Q6H PRN PO ITCHING Last administered on 08/28/16 13:24; Admin Dose 25 MG; Start 08/26/16 at 21:00 Dextrose/Sodium Chloride (D5-1/2ns) 1,000 ml @ 60 mls/hr [id number] IV Last administered on 08/31/16 03:26; Admin Dose 60 MLS/HR; Start 08/29/16 at 10:30 Gentamicin Sulfate (Gentamicin 0.1% Oint) 1 applic DAILY TOP Last administered on 08/30/16 09:13; Admin Dose 1 APPLIC; Start 08/29/16 at 18:00 KIKE WRIGHT MD Aug 31, 2016 08:13
[2016-08-31 08:19] LABS: BASOPHILS % 0.6 % (0.0-2.0); EOSINOPHILS # 0.4 10^3/ul (0.0-0.5); EOSINOPHILS % 9.9 % (0.0-7.0); HEMATOCRIT 23.2 % (37.0-47.0); HEMOGLOBIN 7.6 g/dl (12.0-16.0); LYMPHOCYTES # 1.1 10^3/ul (0.8-2.9); LYMPHOCYTES % 24.8 % (15.0-51.0); MEAN CORPUSCULAR HEMOGLOBIN 28.8 pg (29.0-33.0); MEAN CORPUSCULAR HGB CONC 32.9 g/dl (32.0-37.0); MEAN CORPUSCULAR VOLUME 87.6 fl (82.0-101.0); MEAN PLATELET VOLUME 8.2 fl (7.4-10.4); MONOCYTE # 0.3 10^3/ul (0.3-0.9); MONOCYTES % 7.1 % (0.0-11.0); NEUTROPHIL # 2.5 10^3/ul (1.6-7.5); NEUTROPHILS % 57.6 % (39.0-77.0); PLATELET COUNT 185 10^3/UL (140-440); RED BLOOD COUNT 2.65 10^6/ul (4.20-5.40); RED CELL DISTRIBUTION WIDTH 17.2 % (11.5-14.5); UNCORRECTED WBC 4.4 10^3/ul (4.8-10.8); WHITE BLOOD COUNT 4.4 10^3/ul (4.8-10.8)
[2016-08-31 08:28] LABS: POTASSIUM 3.6 mmol/L (3.5-5.1)
[2016-08-31 08:30] LABS: CREATININE 0.69 mg/dl (0.44-1.00)
[2016-08-31 08:31] LABS: CALCIUM 6.8 mg/dl (8.4-10.2)
[2016-08-31 08:33] LABS: PHOSPHORUS 3.2 mg/dl (2.5-4.9)
[2016-08-31 08:34] LABS: MAGNESIUM 1.7 mg/dl (1.7-2.5)
[2016-08-31 08:37] LABS: CONDITION 1; LH ANALYZER COMMENTS 1
[2016-08-31] MEDS: INSULIN ASPART [NOVOLOG] 3 ML PEN SC SCH ×4 (08:58→21:50)
[2016-08-31] MEDS: LINAGLIPTIN 5 MG TABLET PO SCH (09:31)
[2016-08-31] MEDS: RIFAMPIN 300 MG CAP PO SCH (09:31)
[2016-08-31] MEDS: VANCOMYCIN 1 GM in NS 250 ML IVPB SCH (09:31)
[2016-08-31] MEDS: LORATADINE 10 MG TAB PO SCH (09:32)
[2016-08-31] MEDS: MUPIROCIN 2% 22 GM OINT TOP SCH ×2 (09:32→21:07)
[2016-08-31] MEDS: METOPROLOL 50 MG TAB PO SCH ×2 (09:32→21:07)
[2016-08-31] MEDS: FLUCONAZOLE 100 MG TAB NGT SCH (09:32)
[2016-08-31] MEDS: METHIMAZOLE 5 MG TAB PO SCH (09:32)
[2016-08-31] MEDS: GENTAMICIN 0.1% 15 GM OINT TOP SCH (09:34)
[2016-08-31] MEDS: COLLAGENASE 30 GM TUBE TOP SCH (09:34)
[2016-08-31] MEDS ORDERED: SOD CHLORIDE 0.9% 250 ML IV* ONE (11:18)
--- NOTE | 2016-08-31 11:27 | PN ---
Date/Time of Note Date/Time of Note DATE: 08/31/16 TIME: 11:25 Assessment/Plan VTE Prophylaxis VTE Prophylaxis Intervention: SCD's Lines/Catheters IV [facility] Type (from [facility]): PICC Line Central line still needed: Yes Urinary Cath still in place: Yes Reason Cath still needed: skin wounds contaminated by urine Assessment/Plan Chief Complaint/Hosp Course 1. Upper gastrointestinal bleeding. The patient was evaluated by gastroenterology. Esophagogastroduodenoscopy revealed a Faye-Johnson tear, chronic gastritis, and nodular duodenitis. Continue proton pump inhibitors. 2. Atrial fibrillation with rapid ventricular response. Currently, the rate is controlled. No anticoagulation because of underlying gastrointestinal bleed. Cardiology following. 3. Sepsis with underlying MRSA bacteremia, infected pressure ulcers, and urinary tract infection. Continue antibiotics. Infectious disease is on the case. 4. Infected B/L heel pressure ulcers. Seen and evaluated by podiatry. S/P local debridement of the left heel ulcer on 08/20/2016 with repeat debridement on 08/29/2016. 5. Essential hypertension. Continue antihypertensives. 6. Peripheral vascular disease. Monitor for acute changes. Anticoagulation on hold because of anemia. 7. Dyslipidemia. Continue statins. Fasting lipid panel showing low HDL and low total cholesterol. 8. Type 2 diabetes mellitus. Hemoglobin A1c 9.8. Continue sliding scale insulin. 9. Left upper extremity edema. Largely resolved. Left upper extremity venous Doppler study negative for any deep venous thrombosis. Continue elevation of left upper extremity. 10. Multiple pressure ulcers. Continue local wound care. Wound care consult. 11. Hyperthyroidism. The patient was started on methimazole. 12. MRSA colonization of the nares. Continue Bactroban. 13. Fluid, electrolytes and nutrition. Carbohydrate controlled, low- cholesterol diet. 14. DVT prophylaxis with serial sequential compression devices. No anticoagulation because of underlying anemia. 15. Gastrointestinal prophylaxis with proton pump inhibitors. PLAN: Transfuse 1 unit of PRBC. Continue antibiotics as per infectious diseases. Continue in-house monitoring. Case discussed with Dr. Ying. Called the patient's son Som @ [phone]. Updated the plan of care of the patient to the son. All questions answered. Problems: Subjective 24 Hr Interval Summary Free Text/Dictation Vital signs remain stable. Exam/Review of Systems Vital Signs Vitals Vital Signs Date Time Temp Pulse Resp B/P Pulse Ox O2 Delivery O2 Flow Rate FiO2 08/31/16 08:10 2.0 08/31/16 07:54 97.9 99 18 154/64 97 08/31/16 00:25 Nasal Cannula Intake and Output 08/30/16 08/30/16 08/31/16 15:00 23:00 07:00 Intake Total 1200 ml 1050 ml Output Total 750 ml 500 ml Balance 450 ml 550 ml Exam GENERAL: This is a frail-looking elderly female lying in bed in no apparent distress. HEENT: Head normocephalic and atraumatic. Eyes: Anicteric sclerae. Conjunctivae clear. ENT: Nasal septum is midline. Oral mucosa is dry. NECK: Supple. No JVD noticed. RESPIRATORY: Bilaterally diminished breath sounds. No adventitious breath sounds. No use of accessory muscles of respiration. CARDIAC: Irregularly irregular rhythm. Systolic murmur. ABDOMEN: Soft, nontender and nondistended. Bowel sounds hypoactive in all 4 quadrants. GENITOURINARY: Deferred. EXTREMITIES: No cyanosis, no clubbing. Bilateral lower extremity 1+ pitting edema. Bilateral heel dressings. Peripheral pulses are diminished. NEUROLOGIC: The patient is awake and alert and oriented x1 to 2. Results Result Diagram: 08/31/16 0800 08/31/16 0800 Results 24 hrs Laboratory Tests Test 08/30/16 11:44 08/30/16 17:06 08/30/16 21:02 08/31/16 08:00 Bedside Glucose 129 151 144 Anion Gap 10 Basophils # 0.0 Basophils % 0.6 Blood Morphology Comment Blood Urea Nitrogen 6 L Calcium Level 6.8 L Carbon Dioxide Level 30 Chloride Level 99 Creatinine 0.69 Eosinophils # 0.4 Eosinophils % 9.9 H Glucose Level 342 #H Hematocrit 23.2 L Hemoglobin 7.6 L Lymphocytes # 1.1 Lymphocytes % 24.8 Magnesium Level 1.7 Mean Corpuscular Hemoglobin 28.8 L Mean Corpuscular Hemoglobin Concent 32.9 Mean Corpuscular Volume 87.6 Mean Platelet Volume 8.2 Monocytes # 0.3 Monocytes % 7.1 Neutrophils # 2.5 Neutrophils % 57.6 Nucleated Red Blood Cells # 0.0 Nucleated Red Blood Cells % 0.0 Phosphorus Level 3.2 Platelet Count 185 Potassium Level 3.6 Red Blood Count 2.65 L Red Cell Distribution Width 17.2 H Sodium Level 135 Vancomycin Level Trough 17.7 White Blood Count 4.4 L Test 08/31/16 08:04 Bedside Glucose 178 Medications Medications Current Medications Lorazepam (Ativan) 0.5 mg Q6H PRN IV ANXIETY Last administered on 08/25/16 02: 57; Admin Dose 0.5 MG; Start 08/13/16 at 16:00 Ondansetron HCl (Zofran Inj) 4 mg Q6H PRN IV NAUSEA AND/OR VOMITING Last administered on 08/27/16 03:37; Admin Dose 4 MG; Start 08/13/16 at 16:00 Nitroglycerin (Nitroglycerin (Sl Tab) 0.4 Mg) 1 tab Q5M PRN SL CHEST PAIN Last administered on 08/21/16 23:04; Admin Dose 1 TAB; Start 08/13/16 at 16:00 Acetaminophen (Tylenol Supp) 650 mg Q6H PRN [place] PAIN LEVEL 1-3 OR FEVER; Start 08/13/16 at 16:00 Morphine Sulfate (morphine) 2 mg Q4H PRN IV PAIN LEVEL 7-10 Last administered on 08/31/16 01:24; Admin Dose 2 MG; Start 08/13/16 at 16:00 Bisacodyl (Dulcolax) 5 mg DAILY PRN PO CONSTIPATION Last administered on 12:18; Admin Dose 5 MG; Start 08/13/16 at 16:00 Miscellaneous Information 1 ea NOTE XX ; Start 08/13/16 at 17:30 Glucose (Glutose) 15 gm Q15M PRN PO DECREASED GLUCOSE; Start 08/13/16 at 17:30 Glucose (Glutose) 22.5 gm Q15M PRN PO DECREASED GLUCOSE; Start 08/13/16 at 17:30 Dextrose (D50w Syringe) 25 ml Q15M PRN IV DECREASED GLUCOSE Last administered on 08/29/16 08:13; Admin Dose 25 ML; Start 08/13/16 at 17:30 Dextrose (D50w Syringe) 50 ml Q15M PRN IV DECREASED GLUCOSE Last administered on 08/23/16 06:16; Admin Dose 50 ML; Start 08/13/16 at 17:30 Glucagon (Glucagen) 1 mg Q15M PRN IM DECREASED GLUCOSE; Start 08/13/16 at 17:30 Glucose (Glutose) 15 gm Q15M PRN BUCCAL DECREASED GLUCOSE; Start 08/13/16 at 17: 30 Mupirocin (Bactroban) 1 applic BID TOP Last administered on 08/31/16 09:32; Admin Dose 1 APPLIC; Start 08/15/16 at 13:00 Atorvastatin Calcium (Lipitor) 10 mg QHS PO Last administered on 08/30/16 21: 23; Admin Dose 10 MG; Start 08/15/16 at 21:00 Metoprolol Tartrate (Lopressor) 50 mg BID PO Last administered on 08/31/16 09: 32; Admin Dose 50 MG; Start 08/15/16 at 15:00 Diagnostic Test (Pha) (Accucheck) 1 ea 02 XX Last administered on 08/28/16 02: 16; Admin Dose 1 EA; Start 08/16/16 at 02:00 Methimazole (Tapazole) 20 mg DAILY PO Last administered on 08/31/16 09:32; Admin Dose 20 MG; Start 08/15/16 at 15:00 Linagliptin (Tradjenta) 5 mg DAILY PO Last administered on 08/31/16 09:31; Admin Dose 5 MG; Start 08/15/16 at 18:30 Rifampin 600 mg 600 mg DAILY PO Last administered on 08/31/16 09:31; Admin Dose 600 MG; Start 08/16/16 at 16:30 Ceftriaxone Sodium (Rocephin) 50 ml @ 100 mls/hr Q24H IVPB Last administered on 08/30/16 15:36; Admin Dose 100 MLS/HR; Start 08/16/16 at 15:30 IV Flush (NS 10 ml) 10 ml PRN PRN IV IV PROTOCOL; Start 08/16/16 at 15:30 Collagenase (Santyl) 1 applic DAILY TOP Last administered on 08/31/16 09:34; Admin Dose 1 APPLIC; Start 08/17/16 at 09:00 Pantoprazole (Protonix Tab) 40 mg DAILY@06 PO Last administered on 08/31/16 05 :56; Admin Dose 40 MG; Start 08/20/16 at 06:00 Diphenhydramine HCl (Benadryl) 25 mg Q6H PRN IV ITCHING Last administered on 06:31; Admin Dose 25 MG; Start 08/22/16 at 12:00 Fluconazole (Diflucan) 100 mg DAILY NGT Last administered on 08/31/16 09:32; Admin Dose 100 MG; Start 08/24/16 at 09:00 Loratadine (Claritin) 10 mg DAILY PO Last administered on 08/31/16 09:32; Admin Dose 10 MG; Start 08/23/16 at 14:30 Insulin Glargine 10 unit 10 unit HS SC Last administered on 08/30/16 21:26; Admin Dose 10 UNIT; Start 08/23/16 at 21:00 Vancomycin HCl (Vancocin) 250 ml @ 125 mls/hr Q24H IVPB Last administered on 09:31; Admin Dose 125 MLS/HR; Start 08/25/16 at 09:00; Stop 08/31/16 at 14:00 Hydroxyzine HCl 25 mg 25 mg Q6H PRN PO ITCHING Last administered on 08/28/16 13:24; Admin Dose 25 MG; Start 08/26/16 at 21:00 Dextrose/Sodium Chloride (D5-1/2ns) 1,000 ml @ 60 mls/hr [id number] IV Last administered on 08/31/16 03:26; Admin Dose 60 MLS/HR; Start 08/29/16 at 10:30 Gentamicin Sulfate 1 applic 1 applic DAILY TOP Last administered on 08/31/16 09:34; Admin Dose 1 APPLIC; Start 08/29/16 at 18:00 Vancomycin HCl 750 mg/Sodium Chloride 150 ml @ 75 mls/hr Q24H IVPB ; Start at 09:00 Sodium Chloride (NS) 250 ml @ 0 mls/hr Q0M ONCE IV* ; Start 08/31/16 at 11:18; Stop 08/31/16 at 11:19; Status UNV Furosemide (Lasix) 20 mg ONCE IV ; Start 08/31/16 at 11:30; Stop 09/01/16 at 11: 29; Status UNV DANN HAY NP Aug 31, 2016 11:27
[2016-08-31] MEDS ORDERED: FUROSEMIDE 20 MG INJ IV SCH (11:30)
--- NOTE | 2016-08-31 13:36 | CONS ---
Date/Time of Note Date/Time of Note DATE: 08/31/16 TIME: 13:36 Assessment/Plan Assessment/Plan Chief Complaint/Hosp Course Subjective: No acute changes, awake, looks comfortable, afebrile MICROBIOLOGY: Blood cultures on admission grew MRSA. Urine culture grew E. coli and MRSA. Nares swab came back positive for MRSA. Wound culture growing MRSA/GNR/yeast ANTIMICROBIALS: 1. Vancomycin. 2. Rifampin 3. Rocephin 4. Diflucan INDWELLINGS: Lundy catheter. PHYSICAL EXAMINATION: GENERAL: Fragile, elderly woman who is lying comfortably in bed. Patient is awake and follows commands. HEENT: Head atraumatic, normocephalic. Sclerae anicteric. Buccal mucosa dry. NECK: Supple, trachea midline. CHEST: Rise symmetrical. Breath sounds clear, diminished to bases. HEART: S1, S2. ABDOMEN: Soft. Bowel tones present. EXTREMITIES: Left upper extremity edema. The patient also has anasarca. ASSESSMENT: 1. S/p sepsis. 2. Methicillin-resistant Staphylococcus aureus bacteremia 2 to below. 3. Polymicrobial urinary tract infection with urine culture growing MRSA and E. coli. 4. Bilateral heel cellulitis with chronic wounds==> s/p debridement 08/20, 08/29 5. Methicillin-resistant Staphylococcus aureus nares colonization. 6. Anemia, status post hematemesis and EGD that revealed Faye-Johnson tear and chronic gastritis. 7. History of atrial fibrillation and congestive heart failure. 8. History of cerebrovascular accident. 9. Diabetes. PLAN: The patient remains stable, s/p repeat debridement, continue IV Vanco for 5 more days, then change to PO Bactrim for 2 more weeks, local wound care per podiatry rec-s, continue other abx [facility] staff Problems: Consultation Date/Type/Reason Admit Date/Time Aug 14, 2016 at 01:54 Initial Consult Date 08/15/16 Type of Consultation: id Referring Provider: SÁNCHEZ WOMACK MD Exam/Review of Systems Vital Signs Vitals Vital Signs Date Time Temp Pulse Resp B/P Pulse Ox O2 Delivery O2 Flow Rate FiO2 08/31/16 08:10 2.0 08/31/16 07:54 97.9 99 18 154/64 97 08/31/16 00:25 Nasal Cannula Intake and Output 08/30/16 08/30/16 08/31/16 15:00 23:00 07:00 Intake Total 1200 ml 1050 ml Output Total 750 ml 500 ml Balance 450 ml 550 ml Results Result Diagram: 08/31/16 0800 08/31/16 0800 Results 24 hrs Laboratory Tests Test 08/30/16 17:06 08/30/16 21:02 08/31/16 08:00 08/31/16 08:04 Bedside Glucose 151 144 178 Anion Gap 10 Basophils # 0.0 Basophils % 0.6 Blood Morphology Comment Blood Urea Nitrogen 6 L Calcium Level 6.8 L Carbon Dioxide Level 30 Chloride Level 99 Creatinine 0.69 Eosinophils # 0.4 Eosinophils % 9.9 H Glucose Level 342 #H Hematocrit 23.2 L Hemoglobin 7.6 L Lymphocytes # 1.1 Lymphocytes % 24.8 Magnesium Level 1.7 Mean Corpuscular Hemoglobin 28.8 L Mean Corpuscular Hemoglobin Concent 32.9 Mean Corpuscular Volume 87.6 Mean Platelet Volume 8.2 Monocytes # 0.3 Monocytes % 7.1 Neutrophils # 2.5 Neutrophils % 57.6 Nucleated Red Blood Cells # 0.0 Nucleated Red Blood Cells % 0.0 Phosphorus Level 3.2 Platelet Count 185 Potassium Level 3.6 Red Blood Count 2.65 L Red Cell Distribution Width 17.2 H Sodium Level 135 Vancomycin Level Trough 17.7 White Blood Count 4.4 L Test 08/31/16 12:11 Bedside Glucose 219 Medications Medications Current Medications Lorazepam (Ativan) 0.5 mg Q6H PRN IV ANXIETY Last administered on 08/25/16 02: 57; Admin Dose 0.5 MG; Start 08/13/16 at 16:00 Ondansetron HCl (Zofran Inj) 4 mg Q6H PRN IV NAUSEA AND/OR VOMITING Last administered on 08/27/16 03:37; Admin Dose 4 MG; Start 08/13/16 at 16:00 Nitroglycerin (Nitroglycerin (Sl Tab) 0.4 Mg) 1 tab Q5M PRN SL CHEST PAIN Last administered on 08/21/16 23:04; Admin Dose 1 TAB; Start 08/13/16 at 16:00 Acetaminophen (Tylenol Supp) 650 mg Q6H PRN [place] PAIN LEVEL 1-3 OR FEVER; Start 08/13/16 at 16:00 Morphine Sulfate (morphine) 2 mg Q4H PRN IV PAIN LEVEL 7-10 Last administered on 08/31/16 01:24; Admin Dose 2 MG; Start 08/13/16 at 16:00 Bisacodyl (Dulcolax) 5 mg DAILY PRN PO CONSTIPATION Last administered on 12:18; Admin Dose 5 MG; Start 08/13/16 at 16:00 Miscellaneous Information 1 ea NOTE XX ; Start 08/13/16 at 17:30 Glucose (Glutose) 15 gm Q15M PRN PO DECREASED GLUCOSE; Start 08/13/16 at 17:30 Glucose (Glutose) 22.5 gm Q15M PRN PO DECREASED GLUCOSE; Start 08/13/16 at 17:30 Dextrose (D50w Syringe) 25 ml Q15M PRN IV DECREASED GLUCOSE Last administered on 08/29/16 08:13; Admin Dose 25 ML; Start 08/13/16 at 17:30 Dextrose (D50w Syringe) 50 ml Q15M PRN IV DECREASED GLUCOSE Last administered on 08/23/16 06:16; Admin Dose 50 ML; Start 08/13/16 at 17:30 Glucagon (Glucagen) 1 mg Q15M PRN IM DECREASED GLUCOSE; Start 08/13/16 at 17:30 Glucose (Glutose) 15 gm Q15M PRN BUCCAL DECREASED GLUCOSE; Start 08/13/16 at 17: 30 Mupirocin (Bactroban) 1 applic BID TOP Last administered on 08/31/16 09:32; Admin Dose 1 APPLIC; Start 08/15/16 at 13:00 Atorvastatin Calcium (Lipitor) 10 mg QHS PO Last administered on 08/30/16 21: 23; Admin Dose 10 MG; Start 08/15/16 at 21:00 Metoprolol Tartrate (Lopressor) 50 mg BID PO Last administered on 08/31/16 09: 32; Admin Dose 50 MG; Start 08/15/16 at 15:00 Diagnostic Test (Pha) (Accucheck) 1 ea 02 XX Last administered on 08/28/16 02: 16; Admin Dose 1 EA; Start 08/16/16 at 02:00 Methimazole (Tapazole) 20 mg DAILY PO Last administered on 08/31/16 09:32; Admin Dose 20 MG; Start 08/15/16 at 15:00 Linagliptin (Tradjenta) 5 mg DAILY PO Last administered on 08/31/16 09:31; Admin Dose 5 MG; Start 08/15/16 at 18:30 Rifampin 600 mg 600 mg DAILY PO Last administered on 08/31/16 09:31; Admin Dose 600 MG; Start 08/16/16 at 16:30 Ceftriaxone Sodium (Rocephin) 50 ml @ 100 mls/hr Q24H IVPB Last administered on 08/30/16 15:36; Admin Dose 100 MLS/HR; Start 08/16/16 at 15:30 IV Flush (NS 10 ml) 10 ml PRN PRN IV IV PROTOCOL; Start 08/16/16 at 15:30 Collagenase (Santyl) 1 applic DAILY TOP Last administered on 08/31/16 09:34; Admin Dose 1 APPLIC; Start 08/17/16 at 09:00 Pantoprazole (Protonix Tab) 40 mg DAILY@06 PO Last administered on 08/31/16 05 :56; Admin Dose 40 MG; Start 08/20/16 at 06:00 Diphenhydramine HCl (Benadryl) 25 mg Q6H PRN IV ITCHING Last administered on 06:31; Admin Dose 25 MG; Start 08/22/16 at 12:00 Fluconazole (Diflucan) 100 mg DAILY NGT Last administered on 08/31/16 09:32; Admin Dose 100 MG; Start 08/24/16 at 09:00 Loratadine (Claritin) 10 mg DAILY PO Last administered on 08/31/16 09:32; Admin Dose 10 MG; Start 08/23/16 at 14:30 Insulin Glargine 10 unit 10 unit HS SC Last administered on 08/30/16 21:26; Admin Dose 10 UNIT; Start 08/23/16 at 21:00 Vancomycin HCl (Vancocin) 250 ml @ 125 mls/hr Q24H IVPB Last administered on 09:31; Admin Dose 125 MLS/HR; Start 08/25/16 at 09:00; Stop 08/31/16 at 14:00 Hydroxyzine HCl 25 mg 25 mg Q6H PRN PO ITCHING Last administered on 08/28/16 13:24; Admin Dose 25 MG; Start 08/26/16 at 21:00 Dextrose/Sodium Chloride (D5-1/2ns) 1,000 ml @ 60 mls/hr [id number] IV Last administered on 08/31/16 03:26; Admin Dose 60 MLS/HR; Start 08/29/16 at 10:30 Gentamicin Sulfate 1 applic 1 applic DAILY TOP Last administered on 08/31/16 09:34; Admin Dose 1 APPLIC; Start 08/29/16 at 18:00 Vancomycin HCl/ Sodium Chloride (Vancocin/NS) 150 ml @ 75 mls/hr Q24H IVPB ; Start 09/01/16 at 09:00 Furosemide (Lasix) 20 mg ONCE IV ; Start 08/31/16 at 11:30; Stop 09/01/16 at 11: 29 DEMAR VILLALOBOS NP Aug 31, 2016 13:36
[2016-08-31] MEDS: CEFTRIAXONE 1 GM/50 ML (PMX) 50 ML IVPB SCH (16:12)
[2016-08-31 19:42] VITALS: BP 120/81; RESP 18
[2016-08-31] MEDS: ATORVASTATIN 10 MG TAB PO SCH (21:06)
[2016-08-31] MEDS: DIPHENHYDRAMINE 50 MG INJ IV PRN (21:10)
[2016-08-31] MEDS: INSULIN GLARGINE [LANtus] 3 ML PEN SC SCH (21:50)
[2016-08-31] MEDS: LORAZEPAM 2 MG INJ IV PRN (21:56)
[2016-09-01] MEDS: ACCUCHECK XX SCH (02:41)
[2016-09-01] MEDS: DEXTROSE 5%-0.45% NACL 1,000 ML IV SCH (05:10)
[2016-09-01] MEDS: PANTOPRAZOLE (EC) 40 MG TAB PO SCH (05:33)
--- NOTE | 2016-09-01 05:45 | RADRPT ---
PROCEDURE: XR Chest. CLINICAL INDICATION: Chest pain status post blood transfusion TECHNIQUE: A single AP view of the chest was obtained. COMPARISON: Chest x-ray dated 08/16/2016 FINDINGS: There is a right upper extremity PICC line with tip in the upper SVC. There are bibasilar interstitial opacities. There are small bilateral pleural effusions. No pneumo thorax is seen. The cardiomediastinal silhouette is mildly enlarged. Calcifications are seen withi n the aortic arch. The osseous structures demonstrate senescent changes. IMPRESSION: 1. Increased bibasilar interstitial opacities when compared to the prior examination, may reflect w orsening interstitial edema or pneumonitis. 2. Small bilateral pleural effusions. 3. Mild cardiomegaly and aortic atherosclerosis. 4. Right upper extremity PICC line with tip in the upper SVC. RPTAT: HH .Michelle Berger MD, MD Date Time Electronically viewed and signed by .Michelle Berger MD, on 09/01/2016 05:44 .G/
[2016-09-01 05:47] LABS: BASOPHILS % 0.7 % (0.0-2.0); EOSINOPHILS # 0.5 10^3/ul (0.0-0.5); EOSINOPHILS % 9.2 % (0.0-7.0); HEMATOCRIT 27.1 % (37.0-47.0); HEMOGLOBIN 9.1 g/dl (12.0-16.0); LYMPHOCYTES # 1.8 10^3/ul (0.8-2.9); LYMPHOCYTES % 32.5 % (15.0-51.0); MEAN CORPUSCULAR HEMOGLOBIN 29.4 pg (29.0-33.0); MEAN CORPUSCULAR HGB CONC 33.7 g/dl (32.0-37.0); MEAN CORPUSCULAR VOLUME 87.3 fl (82.0-101.0); MEAN PLATELET VOLUME 8.4 fl (7.4-10.4); MONOCYTE # 0.4 10^3/ul (0.3-0.9); MONOCYTES % 6.7 % (0.0-11.0); NEUTROPHIL # 2.8 10^3/ul (1.6-7.5); NEUTROPHILS % 50.9 % (39.0-77.0); PLATELET COUNT 169 10^3/UL (140-440); RED BLOOD COUNT 3.11 10^6/ul (4.20-5.40); RED CELL DISTRIBUTION WIDTH 17.1 % (11.5-14.5); UNCORRECTED WBC 5.5 10^3/ul (4.8-10.8); WHITE BLOOD COUNT 5.5 10^3/ul (4.8-10.8)
[2016-09-01 05:51] LABS: PHOSPHORUS 2.8 mg/dl (2.5-4.9); POTASSIUM 3.7 mmol/L (3.5-5.1)
[2016-09-01 05:52] LABS: MAGNESIUM 1.6 mg/dl (1.7-2.5)
[2016-09-01 05:54] LABS: CREATININE 0.73 mg/dl (0.44-1.00)
[2016-09-01 05:55] LABS: CALCIUM 7.2 mg/dl (8.4-10.2)
[2016-09-01 06:06] LABS: CONDITION 1; LH ANALYZER COMMENTS 1
[2016-09-01] MEDS: METHIMAZOLE 5 MG TAB PO SCH (08:18)
[2016-09-01] MEDS: MUPIROCIN 2% 22 GM OINT TOP SCH ×2 (08:18→21:05)
[2016-09-01] MEDS: RIFAMPIN 300 MG CAP PO SCH (08:18)
[2016-09-01] MEDS: LINAGLIPTIN 5 MG TABLET PO SCH (08:19)
[2016-09-01] MEDS: FLUCONAZOLE 100 MG TAB NGT SCH (08:19)
[2016-09-01] MEDS: LORATADINE 10 MG TAB PO SCH (08:19)
[2016-09-01] MEDS: COLLAGENASE 30 GM TUBE TOP SCH (08:20)
[2016-09-01] MEDS: GENTAMICIN 0.1% 15 GM OINT TOP SCH (08:20)
[2016-09-01] MEDS: INSULIN ASPART [NOVOLOG] 3 ML PEN SC SCH ×4 (08:24→21:18)
[2016-09-01] MEDS: VANCOMYCIN 750 MG in SOD CHLORIDE 0.9% 150 ML IVPB SCH (08:25)
[2016-09-01 08:27] VITALS: BP 127/69; PULSE 103; RESP 18
[2016-09-01] MEDS: METOPROLOL 50 MG TAB PO SCH ×2 (08:28→21:05)
--- NOTE | 2016-09-01 08:43 | CONS ---
Date/Time of Note Date/Time of Note DATE: 09/01/16 TIME: 08:42 Assessment/Plan Assessment/Plan Chief Complaint/Hosp Course 80-year-old female who is a resident [facility]. She was transferred for declining status. Please note I attempted to speak to the folks at the residential to clarify her medication list. The medication list that accompanied the patient does not have any type of thyroid hormone replacement therapy or any type of antithyroid drugs. She has a suppressed TSH with an elevated free T4 in the setting of extreme medical illness. Problems: (1) Hyperthyroidism Status: Chronic Comment: Present dosage of methimazole is slightly light. I am going to raise it from 20 mg to 25 mg. Please note approximately 3 months it may be possible to reduce his dosage back down but for now this is where she should be at to bring her into euthyroid range and allow you to deal with all of the other multiple medical issues. Consultation Date/Type/Reason Admit Date/Time Aug 14, 2016 at 01:54 Initial Consult Date 08/15/16 Type of Consultation: Endocrinology Reason for Consultation Symptomatic hyperthyroidism Referring Provider: SÁNCHEZ WOMACK MD 24 HR Interval Summary Free Text/Dictation No changes Exam/Review of Systems Vital Signs Vitals Vital Signs Date Time Temp Pulse Resp B/P Pulse Ox O2 Delivery O2 Flow Rate FiO2 09/01/16 08:27 98.1 103 18 127/69 94 Nasal Cannula 5.0 Intake and Output 08/31/16 08/31/16 09/01/16 15:00 23:00 07:00 Intake Total 250 ml 700 ml Output Total 1450 ml Balance 250 ml 700 ml -1450 ml Results Result Diagram: 09/01/16 0505 09/01/16 0505 Results 24 hrs Laboratory Tests Test 08/31/16 12:11 08/31/16 17:17 08/31/16 21:04 09/01/16 02:29 Bedside Glucose 219 218 205 197 Test 09/01/16 05:05 09/01/16 07:53 Anion Gap 7 L Basophils # 0.0 Basophils % 0.7 Blood Morphology Comment Blood Urea Nitrogen 10 Calcium Level 7.2 L Carbon Dioxide Level 36 H Chloride Level 100 Creatinine 0.73 Eosinophils # 0.5 Eosinophils % 9.2 H Glucose Level 151 # Hematocrit 27.1 L Hemoglobin 9.1 L Lymphocytes # 1.8 Lymphocytes % 32.5 Magnesium Level 1.6 L Mean Corpuscular Hemoglobin 29.4 Mean Corpuscular Hemoglobin Concent 33.7 Mean Corpuscular Volume 87.3 Mean Platelet Volume 8.4 Monocytes # 0.4 Monocytes % 6.7 Neutrophils # 2.8 Neutrophils % 50.9 Nucleated Red Blood Cells # 0.0 Nucleated Red Blood Cells % 0.0 Phosphorus Level 2.8 Platelet Count 169 Potassium Level 3.7 Red Blood Count 3.11 L Red Cell Distribution Width 17.1 H Sodium Level 139 Thyroid Stimulating Hormone (TSH) 0.344 L White Blood Count 5.5 # Bedside Glucose 160 Medications Medications Current Medications Lorazepam (Ativan) 0.5 mg Q6H PRN IV ANXIETY Last administered on 08/31/16 21: 56; Admin Dose 0.5 MG; Start 08/13/16 at 16:00 Ondansetron HCl (Zofran Inj) 4 mg Q6H PRN IV NAUSEA AND/OR VOMITING Last administered on 08/27/16 03:37; Admin Dose 4 MG; Start 08/13/16 at 16:00 Nitroglycerin (Nitroglycerin (Sl Tab) 0.4 Mg) 1 tab Q5M PRN SL CHEST PAIN Last administered on 08/21/16 23:04; Admin Dose 1 TAB; Start 08/13/16 at 16:00 Acetaminophen (Tylenol Supp) [address] PAIN LEVEL 1-3 OR FEVER; Start 08/13/16 at 16:00 Morphine Sulfate (morphine) 2 mg Q4H PRN IV PAIN LEVEL 7-10 Last administered on 08/31/16 16:02; Admin Dose 2 MG; Start 08/13/16 at 16:00 Bisacodyl (Dulcolax) 5 mg DAILY PRN PO CONSTIPATION Last administered on 12:18; Admin Dose 5 MG; Start 08/13/16 at 16:00 Miscellaneous Information 1 ea NOTE XX ; Start 08/13/16 at 17:30 Glucose (Glutose) 15 gm Q15M PRN PO DECREASED GLUCOSE; Start 08/13/16 at 17:30 Glucose (Glutose) 22.5 gm Q15M PRN PO DECREASED GLUCOSE; Start 08/13/16 at 17:30 Dextrose (D50w Syringe) 25 ml Q15M PRN IV DECREASED GLUCOSE Last administered on 08/29/16 08:13; Admin Dose 25 ML; Start 08/13/16 at 17:30 Dextrose (D50w Syringe) 50 ml Q15M PRN IV DECREASED GLUCOSE Last administered on 08/23/16 06:16; Admin Dose 50 ML; Start 08/13/16 at 17:30 Glucagon (Glucagen) 1 mg Q15M PRN IM DECREASED GLUCOSE; Start 08/13/16 at 17:30 Glucose (Glutose) 15 gm Q15M PRN BUCCAL DECREASED GLUCOSE; Start 08/13/16 at 17: 30 Mupirocin (Bactroban) 1 applic BID TOP Last administered on 09/01/16 08:18; Admin Dose 1 APPLIC; Start 08/15/16 at 13:00 Atorvastatin Calcium (Lipitor) 10 mg QHS PO Last administered on 08/31/16 21: 06; Admin Dose 10 MG; Start 08/15/16 at 21:00 Metoprolol Tartrate (Lopressor) 50 mg BID PO Last administered on 09/01/16 08: 28; Admin Dose 50 MG; Start 08/15/16 at 15:00 Diagnostic Test (Pha) (Accucheck) 1 ea 02 XX Last administered on 09/01/16 02: 41; Admin Dose 1 EA; Start 08/16/16 at 02:00 Methimazole (Tapazole) 20 mg DAILY PO Last administered on 09/01/16 08:18; Admin Dose 20 MG; Start 08/15/16 at 15:00 Linagliptin (Tradjenta) 5 mg DAILY PO Last administered on 09/01/16 08:19; Admin Dose 5 MG; Start 08/15/16 at 18:30 Rifampin 600 mg 600 mg DAILY PO Last administered on 09/01/16 08:18; Admin Dose 600 MG; Start 08/16/16 at 16:30 Ceftriaxone Sodium (Rocephin) 50 ml @ 100 mls/hr Q24H IVPB Last administered on 08/31/16 16:12; Admin Dose 100 MLS/HR; Start 08/16/16 at 15:30 IV Flush (NS 10 ml) 10 ml PRN PRN IV IV PROTOCOL; Start 08/16/16 at 15:30 Collagenase (Santyl) 1 applic DAILY TOP Last administered on 09/01/16 08:20; Admin Dose 1 APPLIC; Start 08/17/16 at 09:00 Pantoprazole (Protonix Tab) 40 mg DAILY@06 PO Last administered on 09/01/16 05 :33; Admin Dose 40 MG; Start 08/20/16 at 06:00 Diphenhydramine HCl (Benadryl) 25 mg Q6H PRN IV ITCHING Last administered on 21:10; Admin Dose 25 MG; Start 08/22/16 at 12:00 Fluconazole (Diflucan) 100 mg DAILY NGT Last administered on 09/01/16 08:19; Admin Dose 100 MG; Start 08/24/16 at 09:00 Loratadine (Claritin) 10 mg DAILY PO Last administered on 09/01/16 08:19; Admin Dose 10 MG; Start 08/23/16 at 14:30 Insulin Glargine (Lantus) 10 unit HS SC Last administered on 08/31/16 21:50; Admin Dose 10 UNIT; Start 08/23/16 at 21:00 Hydroxyzine HCl 25 mg 25 mg Q6H PRN PO ITCHING Last administered on 08/28/16 13:24; Admin Dose 25 MG; Start 08/26/16 at 21:00 Dextrose/Sodium Chloride (D5-1/2ns) 1,000 ml @ 60 mls/hr [id number] IV Last administered on 08/31/16 03:26; Admin Dose 60 MLS/HR; Start 08/29/16 at 10:30 Gentamicin Sulfate 1 applic 1 applic DAILY TOP Last administered on 09/01/16 08:20; Admin Dose 1 APPLIC; Start 08/29/16 at 18:00 Vancomycin HCl/ Sodium Chloride (Vancocin/NS) 150 ml @ 75 mls/hr Q24H IVPB Last administered on 09/01/16 08:25; Admin Dose 75 MLS/HR; Start 09/01/16 at 09 :00 Furosemide (Lasix) 20 mg ONCE IV Last administered on 08/31/16 21:20; Admin Dose 20 MG; Start 08/31/16 at 11:30; Stop 09/01/16 at 11:29 MINNIE GILES MD Sep 01, 2016 08:43
[2016-09-01] MEDS: DIPHENHYDRAMINE 50 MG INJ IV PRN (10:00)
[2016-09-01] MEDS ORDERED: FUROSEMIDE 40 MG INJ IV ONE (11:00)
[2016-09-01] MEDS: DIPHENHYDRAMINE 50 MG INJ IV SCH ×2 (11:00→21:05)
[2016-09-01] MEDS ORDERED: MAGNESIUM SULFATE 2 GM/50 ML 50 ML IVPB ONE (11:00)
--- NOTE | 2016-09-01 11:09 | PN ---
Date/Time of Note Date/Time of Note DATE: 09/01/16 TIME: 11:04 Assessment/Plan VTE Prophylaxis VTE Prophylaxis Intervention: SCD's Lines/Catheters IV Catheter Type (from [facility]): PICC Line Central line still needed: Yes Urinary Cath still in place: Yes Reason Cath still needed: skin wounds contaminated by urine Assessment/Plan Chief Complaint/Hosp Course 1. Upper gastrointestinal bleeding. The patient was evaluated by gastroenterology. Esophagogastroduodenoscopy revealed a Faye-Johnson tear, chronic gastritis, and nodular duodenitis. Continue proton pump inhibitors. 2. Atrial fibrillation with rapid ventricular response. Currently, the rate is controlled. No anticoagulation because of underlying gastrointestinal bleed. Cardiology following. 3. Sepsis with underlying MRSA bacteremia, infected pressure ulcers, and urinary tract infection. Continue antibiotics. Infectious disease is on the case. 4. Infected B/L heel pressure ulcers. Seen and evaluated by podiatry. S/P local debridement of the left heel ulcer on 08/20/2016 with repeat debridement on 08/29/2016. 5. Essential hypertension. Continue antihypertensives. 6. Peripheral vascular disease. Monitor for acute changes. Anticoagulation on hold because of anemia. 7. Dyslipidemia. Continue statins. Fasting lipid panel showing low HDL and low total cholesterol. 8. Type 2 diabetes mellitus. Hemoglobin A1c 9.8. Continue sliding scale insulin. 9. Left upper extremity edema. Largely resolved. Left upper extremity venous Doppler study negative for any deep venous thrombosis. Continue elevation of left upper extremity. 10. Multiple pressure ulcers. Continue local wound care. Wound care consult. 11. Hyperthyroidism. The patient on methimazole. 12. MRSA colonization of the nares. Continue Bactroban. 13. Generalized maculopapular rashes with associated pruritus. Etiology unclear. Will start the patient on histamine 1 and histamine 2 blockade along with IV steroids. 14. Diastolic heart failure. Acute onset. Will start the patient on diuretics. 15. Fluid, electrolytes and nutrition. Carbohydrate controlled, low- cholesterol diet. 16. DVT prophylaxis with serial sequential compression devices. No anticoagulation because of underlying anemia. 17. Gastrointestinal prophylaxis with proton pump inhibitors. PLAN: Continue antibiotics as per infectious diseases. Continue in-house monitoring. Start diuresis. Start histamine 1 and histamine 2 blockade along with steroids. Continue as needed inhaled bronchodilators. Case discussed with Dr. Ying. Called the patient's son Som @ [phone] on 08/31/2016. Updated the plan of care of the patient to the son. All questions answered. Problems: Subjective 24 Hr Interval Summary Free Text/Dictation Complains of dyspnea. Complains of generalized pruritus. Exam/Review of Systems Vital Signs Vitals Vital Signs Date Time Temp Pulse Resp B/P Pulse Ox O2 Delivery O2 Flow Rate FiO2 09/01/16 08:27 98.1 103 18 127/69 94 Nasal Cannula 5.0 Intake and Output 08/31/16 08/31/16 09/01/16 15:00 23:00 07:00 Intake Total 250 ml 700 ml Output Total 1450 ml Balance 250 ml 700 ml -1450 ml Exam GENERAL: This is a frail-looking elderly female lying in bed in mild respiratory distress. HEENT: Head normocephalic and atraumatic. Eyes: Anicteric sclerae. Conjunctivae clear. ENT: Nasal septum is midline. Oral mucosa is dry. NECK: Supple. No JVD noticed. RESPIRATORY: Bilaterally diminished breath sounds. Bilateral fine rales at the bases. Minimal use of accessory muscles of respiration. CARDIAC: Irregularly irregular rhythm. Systolic murmur. ABDOMEN: Soft, nontender and nondistended. Bowel sounds hypoactive in all 4 quadrants. GENITOURINARY: Deferred. EXTREMITIES: No cyanosis, no clubbing. Bilateral lower extremity 1+ pitting edema. Bilateral heel dressings. Peripheral pulses are diminished. NEUROLOGIC: The patient is awake and alert and oriented x1 to 2. SKIN: Generalized maculopapular rashes. Results Result Diagram: 09/01/16 0505 09/01/16 0505 Results 24 hrs Laboratory Tests Test 08/31/16 12:11 08/31/16 17:17 08/31/16 21:04 09/01/16 02:29 Bedside Glucose 219 218 205 197 Test 09/01/16 05:05 09/01/16 07:53 Anion Gap 7 L Basophils # 0.0 Basophils % 0.7 Blood Morphology Comment Blood Urea Nitrogen 10 Calcium Level 7.2 L Carbon Dioxide Level 36 H Chloride Level 100 Creatinine 0.73 Eosinophils # 0.5 Eosinophils % 9.2 H Glucose Level 151 # Hematocrit 27.1 L Hemoglobin 9.1 L Lymphocytes # 1.8 Lymphocytes % 32.5 Magnesium Level 1.6 L Mean Corpuscular Hemoglobin 29.4 Mean Corpuscular Hemoglobin Concent 33.7 Mean Corpuscular Volume 87.3 Mean Platelet Volume 8.4 Monocytes # 0.4 Monocytes % 6.7 Neutrophils # 2.8 Neutrophils % 50.9 Nucleated Red Blood Cells # 0.0 Nucleated Red Blood Cells % 0.0 Phosphorus Level 2.8 Platelet Count 169 Potassium Level 3.7 Red Blood Count 3.11 L Red Cell Distribution Width 17.1 H Sodium Level 139 Thyroid Stimulating Hormone (TSH) 0.344 L White Blood Count 5.5 # Bedside Glucose 160 Medications Medications Current Medications Lorazepam (Ativan) 0.5 mg Q6H PRN IV ANXIETY Last administered on 08/31/16 21: 56; Admin Dose 0.5 MG; Start 08/13/16 at 16:00 Ondansetron HCl (Zofran Inj) 4 mg Q6H PRN IV NAUSEA AND/OR VOMITING Last administered on 08/27/16 03:37; Admin Dose 4 MG; Start 08/13/16 at 16:00 Nitroglycerin (Nitroglycerin (Sl Tab) 0.4 Mg) 1 tab Q5M PRN SL CHEST PAIN Last administered on 08/21/16 23:04; Admin Dose 1 TAB; Start 08/13/16 at 16:00 Acetaminophen (Tylenol Supp) 650 mg Q6H PRN [place] PAIN LEVEL 1-3 OR FEVER; Start 08/13/16 at 16:00 Morphine Sulfate (morphine) 2 mg Q4H PRN IV PAIN LEVEL 7-10 Last administered on 08/31/16 16:02; Admin Dose 2 MG; Start 08/13/16 at 16:00 Bisacodyl (Dulcolax) 5 mg DAILY PRN PO CONSTIPATION Last administered on 12:18; Admin Dose 5 MG; Start 08/13/16 at 16:00 Miscellaneous Information 1 ea NOTE XX ; Start 08/13/16 at 17:30 Glucose (Glutose) 15 gm Q15M PRN PO DECREASED GLUCOSE; Start 08/13/16 at 17:30 Glucose (Glutose) 22.5 gm Q15M PRN PO DECREASED GLUCOSE; Start 08/13/16 at 17:30 Dextrose (D50w Syringe) 25 ml Q15M PRN IV DECREASED GLUCOSE Last administered on 08/29/16 08:13; Admin Dose 25 ML; Start 08/13/16 at 17:30 Dextrose (D50w Syringe) 50 ml Q15M PRN IV DECREASED GLUCOSE Last administered on 08/23/16 06:16; Admin Dose 50 ML; Start 08/13/16 at 17:30 Glucagon (Glucagen) 1 mg Q15M PRN IM DECREASED GLUCOSE; Start 08/13/16 at 17:30 Glucose (Glutose) 15 gm Q15M PRN BUCCAL DECREASED GLUCOSE; Start 08/13/16 at 17: 30 Mupirocin (Bactroban) 1 applic BID TOP Last administered on 09/01/16 08:18; Admin Dose 1 APPLIC; Start 08/15/16 at 13:00 Atorvastatin Calcium (Lipitor) 10 mg QHS PO Last administered on 08/31/16 21: 06; Admin Dose 10 MG; Start 08/15/16 at 21:00 Metoprolol Tartrate (Lopressor) 50 mg BID PO Last administered on 09/01/16 08: 28; Admin Dose 50 MG; Start 08/15/16 at 15:00 Diagnostic Test (Pha) (Accucheck) 1 ea 02 XX Last administered on 09/01/16 02: 41; Admin Dose 1 EA; Start 08/16/16 at 02:00 Methimazole (Tapazole) 20 mg DAILY PO Last administered on 09/01/16 08:18; Admin Dose 20 MG; Start 08/15/16 at 15:00 Linagliptin (Tradjenta) 5 mg DAILY PO Last administered on 09/01/16 08:19; Admin Dose 5 MG; Start 08/15/16 at 18:30 Rifampin 600 mg 600 mg DAILY PO Last administered on 09/01/16 08:18; Admin Dose 600 MG; Start 08/16/16 at 16:30 Ceftriaxone Sodium (Rocephin) 50 ml @ 100 mls/hr Q24H IVPB Last administered on 08/31/16 16:12; Admin Dose 100 MLS/HR; Start 08/16/16 at 15:30 IV Flush (NS 10 ml) 10 ml PRN PRN IV IV PROTOCOL; Start 08/16/16 at 15:30 Collagenase (Santyl) 1 applic DAILY TOP Last administered on 09/01/16 08:20; Admin Dose 1 APPLIC; Start 08/17/16 at 09:00 Pantoprazole (Protonix Tab) 40 mg DAILY@06 PO Last administered on 09/01/16 05 :33; Admin Dose 40 MG; Start 08/20/16 at 06:00 Diphenhydramine HCl (Benadryl) 25 mg Q6H PRN IV ITCHING Last administered on 10:00; Admin Dose 25 MG; Start 08/22/16 at 12:00 Fluconazole (Diflucan) 100 mg DAILY NGT Last administered on 09/01/16 08:19; Admin Dose 100 MG; Start 08/24/16 at 09:00 Loratadine (Claritin) 10 mg DAILY PO Last administered on 09/01/16 08:19; Admin Dose 10 MG; Start 08/23/16 at 14:30 Insulin Glargine (Lantus) 10 unit HS SC Last administered on 08/31/16 21:50; Admin Dose 10 UNIT; Start 08/23/16 at 21:00 Hydroxyzine HCl 25 mg 25 mg Q6H PRN PO ITCHING Last administered on 08/28/16 13:24; Admin Dose 25 MG; Start 08/26/16 at 21:00 Dextrose/Sodium Chloride (D5-1/2ns) 1,000 ml @ 60 mls/hr [id number] IV Last administered on 08/31/16 03:26; Admin Dose 60 MLS/HR; Start 08/29/16 at 10:30 Gentamicin Sulfate 1 applic 1 applic DAILY TOP Last administered on 09/01/16 08:20; Admin Dose 1 APPLIC; Start 08/29/16 at 18:00 Vancomycin HCl/ Sodium Chloride (Vancocin/NS) 150 ml @ 75 mls/hr Q24H IVPB Last administered on 09/01/16 08:25; Admin Dose 75 MLS/HR; Start 09/01/16 at 09 :00 Furosemide 20 mg 20 mg ONCE IV Last administered on 08/31/16 21:20; Admin Dose 20 MG; Start 08/31/16 at 11:30; Stop 09/01/16 at 11:29 Magnesium Sulfate (Magnesium Sulfate 2 Gm/50 ml) 50 ml @ 25 mls/hr ONCE ONCE IVPB ; Start 09/01/16 at 11:00; Stop 09/01/16 at 12:59 DANN HAY NP Sep 01, 2016 11:09
--- NOTE | 2016-09-01 12:02 | CONS ---
Date/Time of Note Date/Time of Note DATE: 09/01/16 TIME: 11:56 Assessment/Plan Assessment/Plan Chief Complaint/Hosp Course Subjective: awake, slightly tachypneic, no fevers, nad MICROBIOLOGY: Blood cultures on admission grew MRSA. Urine culture grew E. coli and MRSA. Nares swab came back positive for MRSA. Wound culture grew MRSA/ GNR/yeast ANTIMICROBIALS: 1. Vancomycin. 2. Rifampin 3. Rocephin 4. Diflucan INDWELLINGS: Lundy catheter, PICC. PHYSICAL EXAMINATION: GENERAL: Fragile, elderly woman who is awake, anxious, in no distress. HEENT: Head atraumatic, normocephalic. Sclerae anicteric. Buccal mucosa dry. NECK: Supple, trachea midline. CHEST: Rise symmetrical. Breath sounds diminished to bases with scattered crackles. HEART: S1, S2. ABDOMEN: Soft. Bowel tones present. EXTREMITIES: warm, B heels dsg intact ASSESSMENT: 1. S/p sepsis. 2. Methicillin-resistant Staphylococcus aureus bacteremia 2 to below. 3. Polymicrobial urinary tract infection with urine culture growing MRSA and E. coli. 4. Bilateral heel cellulitis with chronic wounds==> s/p debridement 08/20, 08/29 5. Methicillin-resistant Staphylococcus aureus nares colonization. 6. Anemia, status post hematemesis and EGD that revealed Faye-Johnson tear and chronic gastritis. 7. History of atrial fibrillation . 8. History of cerebrovascular accident. 9. Diabetes. 10. CHF PLAN: Clinically stable, continue IV Vanco for 4 more days, then change to PO Bactrim for 2 more weeks, local wound care per podiatry rec-s, continue other abx [facility] staff Problems: Consultation Date/Type/Reason Admit Date/Time Aug 14, 2016 at 01:54 Initial Consult Date 08/15/16 Type of Consultation: id Referring Provider: SÁNCHEZ WOMACK MD Exam/Review of Systems Vital Signs Vitals Vital Signs Date Time Temp Pulse Resp B/P Pulse Ox O2 Delivery O2 Flow Rate FiO2 09/01/16 08:27 98.1 103 18 127/69 94 Nasal Cannula 5.0 Intake and Output 08/31/16 08/31/16 09/01/16 15:00 23:00 07:00 Intake Total 250 ml 700 ml Output Total 1450 ml Balance 250 ml 700 ml -1450 ml Results Result Diagram: 09/01/16 0505 09/01/16 0505 Results 24 hrs Laboratory Tests Test 08/31/16 12:11 08/31/16 17:17 08/31/16 21:04 09/01/16 02:29 Bedside Glucose 219 218 205 197 Test 09/01/16 05:05 09/01/16 07:53 Anion Gap 7 L Basophils # 0.0 Basophils % 0.7 Blood Morphology Comment Blood Urea Nitrogen 10 Calcium Level 7.2 L Carbon Dioxide Level 36 H Chloride Level 100 Creatinine 0.73 Eosinophils # 0.5 Eosinophils % 9.2 H Glucose Level 151 # Hematocrit 27.1 L Hemoglobin 9.1 L Lymphocytes # 1.8 Lymphocytes % 32.5 Magnesium Level 1.6 L Mean Corpuscular Hemoglobin 29.4 Mean Corpuscular Hemoglobin Concent 33.7 Mean Corpuscular Volume 87.3 Mean Platelet Volume 8.4 Monocytes # 0.4 Monocytes % 6.7 Neutrophils # 2.8 Neutrophils % 50.9 Nucleated Red Blood Cells # 0.0 Nucleated Red Blood Cells % 0.0 Phosphorus Level 2.8 Platelet Count 169 Potassium Level 3.7 Red Blood Count 3.11 L Red Cell Distribution Width 17.1 H Sodium Level 139 Thyroid Stimulating Hormone (TSH) 0.344 L White Blood Count 5.5 # Bedside Glucose 160 Medications Medications Current Medications Lorazepam (Ativan) 0.5 mg Q6H PRN IV ANXIETY Last administered on 08/31/16 21: 56; Admin Dose 0.5 MG; Start 08/13/16 at 16:00 Ondansetron HCl (Zofran Inj) 4 mg Q6H PRN IV NAUSEA AND/OR VOMITING Last administered on 08/27/16 03:37; Admin Dose 4 MG; Start 08/13/16 at 16:00 Nitroglycerin (Nitroglycerin (Sl Tab) 0.4 Mg) 1 tab Q5M PRN SL CHEST PAIN Last administered on 08/21/16 23:04; Admin Dose 1 TAB; Start 08/13/16 at 16:00 Acetaminophen (Tylenol Supp) 650 mg Q6H PRN [place] PAIN LEVEL 1-3 OR FEVER; Start 08/13/16 at 16:00 Morphine Sulfate (morphine) 2 mg Q4H PRN IV PAIN LEVEL 7-10 Last administered on 08/31/16 16:02; Admin Dose 2 MG; Start 08/13/16 at 16:00 Bisacodyl (Dulcolax) 5 mg DAILY PRN PO CONSTIPATION Last administered on 12:18; Admin Dose 5 MG; Start 08/13/16 at 16:00 Miscellaneous Information 1 ea NOTE XX ; Start 08/13/16 at 17:30 Glucose (Glutose) 15 gm Q15M PRN PO DECREASED GLUCOSE; Start 08/13/16 at 17:30 Glucose (Glutose) 22.5 gm Q15M PRN PO DECREASED GLUCOSE; Start 08/13/16 at 17:30 Dextrose (D50w Syringe) 25 ml Q15M PRN IV DECREASED GLUCOSE Last administered on 08/29/16 08:13; Admin Dose 25 ML; Start 08/13/16 at 17:30 Dextrose (D50w Syringe) 50 ml Q15M PRN IV DECREASED GLUCOSE Last administered on 08/23/16 06:16; Admin Dose 50 ML; Start 08/13/16 at 17:30 Glucagon (Glucagen) 1 mg Q15M PRN IM DECREASED GLUCOSE; Start 08/13/16 at 17:30 Glucose (Glutose) 15 gm Q15M PRN BUCCAL DECREASED GLUCOSE; Start 08/13/16 at 17: 30 Mupirocin (Bactroban) 1 applic BID TOP Last administered on 09/01/16 08:18; Admin Dose 1 APPLIC; Start 08/15/16 at 13:00 Atorvastatin Calcium (Lipitor) 10 mg QHS PO Last administered on 08/31/16 21: 06; Admin Dose 10 MG; Start 08/15/16 at 21:00 Metoprolol Tartrate (Lopressor) 50 mg BID PO Last administered on 09/01/16 08: 28; Admin Dose 50 MG; Start 08/15/16 at 15:00 Diagnostic Test (Pha) (Accucheck) 1 ea 02 XX Last administered on 09/01/16 02: 41; Admin Dose 1 EA; Start 08/16/16 at 02:00 Methimazole (Tapazole) 20 mg DAILY PO Last administered on 09/01/16 08:18; Admin Dose 20 MG; Start 08/15/16 at 15:00 Linagliptin (Tradjenta) 5 mg DAILY PO Last administered on 09/01/16 08:19; Admin Dose 5 MG; Start 08/15/16 at 18:30 Rifampin 600 mg 600 mg DAILY PO Last administered on 09/01/16 08:18; Admin Dose 600 MG; Start 08/16/16 at 16:30 Ceftriaxone Sodium (Rocephin) 50 ml @ 100 mls/hr Q24H IVPB Last administered on 08/31/16 16:12; Admin Dose 100 MLS/HR; Start 08/16/16 at 15:30 IV Flush (NS 10 ml) 10 ml PRN PRN IV IV PROTOCOL; Start 08/16/16 at 15:30 Collagenase (Santyl) 1 applic DAILY TOP Last administered on 09/01/16 08:20; Admin Dose 1 APPLIC; Start 08/17/16 at 09:00 Pantoprazole (Protonix Tab) 40 mg DAILY@06 PO Last administered on 09/01/16 05 :33; Admin Dose 40 MG; Start 08/20/16 at 06:00 Diphenhydramine HCl (Benadryl) 25 mg Q6H PRN IV ITCHING Last administered on 10:00; Admin Dose 25 MG; Start 08/22/16 at 12:00 Fluconazole (Diflucan) 100 mg DAILY NGT Last administered on 09/01/16 08:19; Admin Dose 100 MG; Start 08/24/16 at 09:00 Loratadine (Claritin) 10 mg DAILY PO Last administered on 09/01/16 08:19; Admin Dose 10 MG; Start 08/23/16 at 14:30 Insulin Glargine (Lantus) 10 unit HS SC Last administered on 08/31/16 21:50; Admin Dose 10 UNIT; Start 08/23/16 at 21:00 Hydroxyzine HCl (Atarax) 25 mg Q6H PRN PO ITCHING Last administered on 13:24; Admin Dose 25 MG; Start 08/26/16 at 21:00 Gentamicin Sulfate 1 applic 1 applic DAILY TOP Last administered on 09/01/16 08:20; Admin Dose 1 APPLIC; Start 08/29/16 at 18:00 Vancomycin HCl 750 mg/Sodium Chloride 150 ml @ 75 mls/hr Q24H IVPB Last administered on 09/01/16 08:25; Admin Dose 75 MLS/HR; Start 09/01/16 at 09:00 Magnesium Sulfate (Magnesium Sulfate 2 Gm/50 ml) 50 ml @ 25 mls/hr ONCE ONCE IVPB ; Start 09/01/16 at 11:00; Stop 09/01/16 at 12:59 Furosemide (Lasix) 20 mg DAILY IV ; Start 09/02/16 at 09:00 Methylprednisolone Sodium Succinate (Solu-Medrol) 40 mg Q12 IV ; Start 09/01/16 at 11:00 Insulin Human NPH (Humulin N) 10 unit BID SC ; Start 09/01/16 at 11:00 Famotidine (Pepcid Iv) 20 mg BID IV ; Start 09/01/16 at 11:00 Diphenhydramine HCl (Benadryl) 25 mg BID IV ; Start 09/01/16 at 11:00 DEMAR VILLALOBOS NP Sep 01, 2016 12:02
[2016-09-01] MEDS: FAMOTIDINE 20 MG INJ IV SCH ×2 (12:04→21:04)
[2016-09-01] MEDS: METHYLPREDNISOLONE 40 MG INJ IV SCH ×2 (12:10→21:04)
[2016-09-01] MEDS: NPH, HUMAN INSULIN ISOPHANE 3ML VIAL SC SCH ×2 (13:52→21:44)
[2016-09-01] MEDS: CEFTRIAXONE 1 GM/50 ML (PMX) 50 ML IVPB SCH (16:22)
--- NOTE | 2016-09-01 16:22 | PN ---
Date/Time of Note Date/Time of Note DATE: 09/01/16 TIME: 16:21 Assessment/Plan VTE Prophylaxis VTE Prophylaxis Intervention: SCD's Lines/Catheters IV Catheter Type (from Nrs): PICC Line Central line still needed: No Urinary Cath still in place: Yes Reason Cath still needed: urinary retention Assessment/Plan Assessment/Plan Sepsis Atrial fibrillation with rapid ventricular rates, improved Acute blood loss anemia/GI bleed Preserved ejection fraction Hyperthyroidism History of hypertension History of CVA Diabetes -heart rate trend overall stable, continue lopressor and BP tolerates, no anticoagulation at current time secondary to GI bleed. Subjective 24 Hr Interval Summary Free Text/Dictation The patietn with no cahgne Exam/Review of Systems Vital Signs Vitals Vital Signs Date Time Temp Pulse Resp B/P Pulse Ox O2 Delivery O2 Flow Rate FiO2 09/01/16 08:27 98.1 103 18 127/69 94 Nasal Cannula 5.0 Intake and Output 08/31/16 08/31/16 09/01/16 15:00 23:00 07:00 Intake Total 250 ml 700 ml Output Total 1450 ml Balance 250 ml 700 ml -1450 ml Results Result Diagram: 09/01/16 0505 09/01/16 0505 Results 24 hrs Laboratory Tests Test 08/31/16 17:17 08/31/16 21:04 09/01/16 02:29 09/01/16 05:05 Bedside Glucose 218 205 197 Anion Gap 7 L Basophils # 0.0 Basophils % 0.7 Blood Morphology Comment Blood Urea Nitrogen 10 Calcium Level 7.2 L Carbon Dioxide Level 36 H Chloride Level 100 Creatinine 0.73 Eosinophils # 0.5 Eosinophils % 9.2 H Glucose Level 151 # Hematocrit 27.1 L Hemoglobin 9.1 L Lymphocytes # 1.8 Lymphocytes % 32.5 Magnesium Level 1.6 L Mean Corpuscular Hemoglobin 29.4 Mean Corpuscular Hemoglobin Concent 33.7 Mean Corpuscular Volume 87.3 Mean Platelet Volume 8.4 Monocytes # 0.4 Monocytes % 6.7 Neutrophils # 2.8 Neutrophils % 50.9 Nucleated Red Blood Cells # 0.0 Nucleated Red Blood Cells % 0.0 Phosphorus Level 2.8 Platelet Count 169 Potassium Level 3.7 Red Blood Count 3.11 L Red Cell Distribution Width 17.1 H Sodium Level 139 Thyroid Stimulating Hormone (TSH) 0.344 L White Blood Count 5.5 # Test 09/01/16 07:53 09/01/16 12:12 Bedside Glucose 160 127 Medications Medications Current Medications Lorazepam (Ativan) 0.5 mg Q6H PRN IV ANXIETY Last administered on 08/31/16 21: 56; Admin Dose 0.5 MG; Start 08/13/16 at 16:00 Ondansetron HCl (Zofran Inj) 4 mg Q6H PRN IV NAUSEA AND/OR VOMITING Last administered on 08/27/16 03:37; Admin Dose 4 MG; Start 08/13/16 at 16:00 Nitroglycerin (Nitroglycerin (Sl Tab) 0.4 Mg) 1 tab Q5M PRN SL CHEST PAIN Last administered on 08/21/16 23:04; Admin Dose 1 TAB; Start 08/13/16 at 16:00 Acetaminophen (Tylenol Supp) 650 mg Q6H PRN [place] PAIN LEVEL 1-3 OR FEVER; Start 08/13/16 at 16:00 Morphine Sulfate (morphine) 2 mg Q4H PRN IV PAIN LEVEL 7-10 Last administered on 08/31/16 16:02; Admin Dose 2 MG; Start 08/13/16 at 16:00 Bisacodyl (Dulcolax) 5 mg DAILY PRN PO CONSTIPATION Last administered on 12:18; Admin Dose 5 MG; Start 08/13/16 at 16:00 Miscellaneous Information 1 ea NOTE XX ; Start 08/13/16 at 17:30 Glucose (Glutose) 15 gm Q15M PRN PO DECREASED GLUCOSE; Start 08/13/16 at 17:30 Glucose (Glutose) 22.5 gm Q15M PRN PO DECREASED GLUCOSE; Start 08/13/16 at 17:30 Dextrose (D50w Syringe) 25 ml Q15M PRN IV DECREASED GLUCOSE Last administered on 08/29/16 08:13; Admin Dose 25 ML; Start 08/13/16 at 17:30 Dextrose (D50w Syringe) 50 ml Q15M PRN IV DECREASED GLUCOSE Last administered on 08/23/16 06:16; Admin Dose 50 ML; Start 08/13/16 at 17:30 Glucagon (Glucagen) 1 mg Q15M PRN IM DECREASED GLUCOSE; Start 08/13/16 at 17:30 Glucose (Glutose) 15 gm Q15M PRN BUCCAL DECREASED GLUCOSE; Start 08/13/16 at 17: 30 Mupirocin (Bactroban) 1 applic BID TOP Last administered on 09/01/16 08:18; Admin Dose 1 APPLIC; Start 08/15/16 at 13:00 Atorvastatin Calcium (Lipitor) 10 mg QHS PO Last administered on 08/31/16 21: 06; Admin Dose 10 MG; Start 08/15/16 at 21:00 Metoprolol Tartrate (Lopressor) 50 mg BID PO Last administered on 09/01/16 08: 28; Admin Dose 50 MG; Start 08/15/16 at 15:00 Diagnostic Test (Pha) (Accucheck) 1 ea 02 XX Last administered on 09/01/16 02: 41; Admin Dose 1 EA; Start 08/16/16 at 02:00 Methimazole (Tapazole) 20 mg DAILY PO Last administered on 09/01/16 08:18; Admin Dose 20 MG; Start 08/15/16 at 15:00 Linagliptin (Tradjenta) 5 mg DAILY PO Last administered on 09/01/16 08:19; Admin Dose 5 MG; Start 08/15/16 at 18:30 Rifampin 600 mg 600 mg DAILY PO Last administered on 09/01/16 08:18; Admin Dose 600 MG; Start 08/16/16 at 16:30 Ceftriaxone Sodium (Rocephin) 50 ml @ 100 mls/hr Q24H IVPB Last administered on 08/31/16 16:12; Admin Dose 100 MLS/HR; Start 08/16/16 at 15:30 IV Flush (NS 10 ml) 10 ml PRN PRN IV IV PROTOCOL; Start 08/16/16 at 15:30 Collagenase (Santyl) 1 applic DAILY TOP Last administered on 09/01/16 08:20; Admin Dose 1 APPLIC; Start 08/17/16 at 09:00 Pantoprazole (Protonix Tab) 40 mg DAILY@06 PO Last administered on 09/01/16 05 :33; Admin Dose 40 MG; Start 08/20/16 at 06:00 Diphenhydramine HCl (Benadryl) 25 mg Q6H PRN IV ITCHING Last administered on 10:00; Admin Dose 25 MG; Start 08/22/16 at 12:00 Fluconazole (Diflucan) 100 mg DAILY NGT Last administered on 09/01/16 08:19; Admin Dose 100 MG; Start 08/24/16 at 09:00 Loratadine (Claritin) 10 mg DAILY PO Last administered on 09/01/16 08:19; Admin Dose 10 MG; Start 08/23/16 at 14:30 Insulin Glargine (Lantus) 10 unit HS SC Last administered on 08/31/16 21:50; Admin Dose 10 UNIT; Start 08/23/16 at 21:00 Hydroxyzine HCl (Atarax) 25 mg Q6H PRN PO ITCHING Last administered on 13:24; Admin Dose 25 MG; Start 08/26/16 at 21:00 Gentamicin Sulfate 1 applic 1 applic DAILY TOP Last administered on 09/01/16 08:20; Admin Dose 1 APPLIC; Start 08/29/16 at 18:00 Vancomycin HCl/ Sodium Chloride (Vancocin/NS) 150 ml @ 75 mls/hr Q24H IVPB Last administered on 09/01/16 08:25; Admin Dose 75 MLS/HR; Start 09/01/16 at 09 :00 Furosemide (Lasix) 20 mg DAILY IV ; Start 09/02/16 at 09:00 Methylprednisolone Sodium Succinate (Solu-Medrol) 40 mg Q12 IV Last administered on 09/01/16 12:10; Admin Dose 40 MG; Start 09/01/16 at 11:00 Insulin Human NPH (Humulin N) 10 unit BID SC Last administered on 09/01/16 13: 52; Admin Dose 10 UNIT; Start 09/01/16 at 11:00 Famotidine (Pepcid Iv) 20 mg BID IV Last administered on 09/01/16 12:04; Admin Dose 20 MG; Start 09/01/16 at 11:00 Diphenhydramine HCl (Benadryl) 25 mg BID IV ; Start 09/01/16 at 11:00 KIKE WRIGHT MD Sep 01, 2016 16:22
[2016-09-01 20:00] VITALS: BP 120/81; RESP 20
[2016-09-01] MEDS: INSULIN GLARGINE [LANtus] 3 ML PEN SC SCH (21:08)
[2016-09-01] MEDS: ATORVASTATIN 10 MG TAB PO SCH (21:31)
[2016-09-01] MEDS: morphine 2 MG INJ IV PRN (23:12)
[2016-09-02] MEDS: ACCUCHECK XX SCH (02:57)
[2016-09-02] MEDS: PANTOPRAZOLE (EC) 40 MG TAB PO SCH (05:29)
[2016-09-02 06:08] LABS: BASOPHILS % 0.3 % (0.0-2.0); CONDITION 1; HEMATOCRIT 28.2 % (37.0-47.0); HEMOGLOBIN 9.7 g/dl (12.0-16.0); LH ANALYZER COMMENTS 1; LYMPHOCYTES # 1.2 10^3/ul (0.8-2.9); LYMPHOCYTES % 21.6 % (15.0-51.0); MEAN CORPUSCULAR HEMOGLOBIN 29.6 pg (29.0-33.0); MEAN CORPUSCULAR HGB CONC 34.5 g/dl (32.0-37.0); MEAN CORPUSCULAR VOLUME 85.8 fl (82.0-101.0); MEAN PLATELET VOLUME 8.8 fl (7.4-10.4); MONOCYTE # 0.2 10^3/ul (0.3-0.9); NEUTROPHILS % 74.1 % (39.0-77.0); PLATELET COUNT 190 10^3/UL (140-440); RED BLOOD COUNT 3.29 10^6/ul (4.20-5.40); RED CELL DISTRIBUTION WIDTH 16.6 % (11.5-14.5); UNCORRECTED WBC 5.4 10^3/ul (4.8-10.8); WHITE BLOOD COUNT 5.4 10^3/ul (4.8-10.8)
[2016-09-02 06:13] LABS: POTASSIUM 3.4 mmol/L (3.5-5.1)
[2016-09-02 06:16] LABS: CREATININE 0.66 mg/dl (0.44-1.00)
[2016-09-02 06:17] LABS: CALCIUM 7.4 mg/dl (8.4-10.2)
[2016-09-02 06:31] LABS: MAGNESIUM 1.7 mg/dl (1.7-2.5); PHOSPHORUS 3.1 mg/dl (2.5-4.9)
[2016-09-02] MEDS: INSULIN ASPART [NOVOLOG] 3 ML PEN SC SCH ×4 (08:15→20:31)
--- NOTE | 2016-09-02 08:18 | PN ---
Date/Time of Note Date/Time of Note DATE: 09/02/16 TIME: 08:18 Assessment/Plan VTE Prophylaxis VTE Prophylaxis Intervention: SCD's Lines/Catheters IV Catheter Type (from Nrs): PICC Line Central line still needed: No Urinary Cath still in place: Yes Reason Cath still needed: urinary retention, other (indicate) Assessment/Plan Assessment/Plan Sepsis Atrial fibrillation with rapid ventricular rates, improved Acute blood loss anemia/GI bleed Preserved ejection fraction Hyperthyroidism History of hypertension History of CVA Diabetes -heart rate trend overall stable, continue lopressor and BP tolerates, no anticoagulation at current time secondary to GI bleed. Subjective 24 Hr Interval Summary Free Text/Dictation The patient wih no cahge Exam/Review of Systems Vital Signs Vitals Vital Signs Date Time Temp Pulse Resp B/P Pulse Ox O2 Delivery O2 Flow Rate FiO2 09/01/16 23:31 2.0 09/01/16 20:00 97.4 113 20 120/81 98 09/01/16 08:27 Nasal Cannula Intake and Output 09/01/16 09/01/16 09/02/16 15:00 23:00 07:00 Intake Total 670 ml 320 ml Output Total 3000 ml 1500 ml Balance -2330 ml -1180 ml Results Result Diagram: 09/02/16 0415 09/02/16 0515 Results 24 hrs Laboratory Tests Test 09/01/16 12:12 09/01/16 17:45 09/01/16 21:02 09/02/16 02:56 Bedside Glucose 127 191 230 H 81 Test 09/02/16 04:15 09/02/16 05:15 09/02/16 07:47 Basophils # 0.0 Basophils % 0.3 Blood Morphology Comment Eosinophils # 0.0 Eosinophils % 0.0 Hematocrit 28.2 L Hemoglobin 9.7 L Lymphocytes # 1.2 Lymphocytes % 21.6 Mean Corpuscular Hemoglobin 29.6 Mean Corpuscular Hemoglobin Concent 34.5 Mean Corpuscular Volume 85.8 Mean Platelet Volume 8.8 Monocytes # 0.2 L Monocytes % 4.0 Neutrophils # 4.0 Neutrophils % 74.1 Nucleated Red Blood Cells # 0.0 Nucleated Red Blood Cells % 0.0 Platelet Count 190 Red Blood Count 3.29 L Red Cell Distribution Width 16.6 H White Blood Count 5.4 Anion Gap 8 Blood Urea Nitrogen 14 Calcium Level 7.4 L Carbon Dioxide Level 38 H Chloride Level 96 L Creatinine 0.66 Glucose Level 72 # Magnesium Level 1.7 Phosphorus Level 3.1 Potassium Level 3.4 L Sodium Level 139 Bedside Glucose 77 Medications Medications Current Medications Lorazepam (Ativan) 0.5 mg Q6H PRN IV ANXIETY Last administered on 08/31/16 21: 56; Admin Dose 0.5 MG; Start 08/13/16 at 16:00 Ondansetron HCl (Zofran Inj) 4 mg Q6H PRN IV NAUSEA AND/OR VOMITING Last administered on 08/27/16 03:37; Admin Dose 4 MG; Start 08/13/16 at 16:00 Nitroglycerin (Nitroglycerin (Sl Tab) 0.4 Mg) 1 tab Q5M PRN SL CHEST PAIN Last administered on 08/21/16 23:04; Admin Dose 1 TAB; Start 08/13/16 at 16:00 Acetaminophen (Tylenol Supp) 650 mg Q6H PRN MS PAIN LEVEL 1-3 OR FEVER; Start 08/13/16 at 16:00 Morphine Sulfate (morphine) 2 mg Q4H PRN IV PAIN LEVEL 7-10 Last administered on 09/01/16 23:12; Admin Dose 2 MG; Start 08/13/16 at 16:00 Bisacodyl (Dulcolax) 5 mg DAILY PRN PO CONSTIPATION Last administered on 12:18; Admin Dose 5 MG; Start 08/13/16 at 16:00 Miscellaneous Information 1 ea NOTE XX ; Start 08/13/16 at 17:30 Glucose (Glutose) 15 gm Q15M PRN PO DECREASED GLUCOSE; Start 08/13/16 at 17:30 Glucose (Glutose) 22.5 gm Q15M PRN PO DECREASED GLUCOSE; Start 08/13/16 at 17:30 Dextrose (D50w Syringe) 25 ml Q15M PRN IV DECREASED GLUCOSE Last administered on 08/29/16 08:13; Admin Dose 25 ML; Start 08/13/16 at 17:30 Dextrose (D50w Syringe) 50 ml Q15M PRN IV DECREASED GLUCOSE Last administered on 08/23/16 06:16; Admin Dose 50 ML; Start 08/13/16 at 17:30 Glucagon (Glucagen) 1 mg Q15M PRN IM DECREASED GLUCOSE; Start 08/13/16 at 17:30 Glucose (Glutose) 15 gm Q15M PRN BUCCAL DECREASED GLUCOSE; Start 08/13/16 at 17: 30 Mupirocin (Bactroban) 1 applic BID TOP Last administered on 09/01/16 21:05; Admin Dose 1 APPLIC; Start 08/15/16 at 13:00 Atorvastatin Calcium (Lipitor) 10 mg QHS PO Last administered on 09/01/16 21: 31; Admin Dose 10 MG; Start 08/15/16 at 21:00 Metoprolol Tartrate (Lopressor) 50 mg BID PO Last administered on 09/01/16 21: 05; Admin Dose 50 MG; Start 08/15/16 at 15:00 Diagnostic Test (Pha) (Accucheck) 1 ea 02 XX Last administered on 09/02/16 02: 57; Admin Dose 1 EA; Start 08/16/16 at 02:00 Methimazole (Tapazole) 20 mg DAILY PO Last administered on 09/01/16 08:18; Admin Dose 20 MG; Start 08/15/16 at 15:00 Linagliptin (Tradjenta) 5 mg DAILY PO Last administered on 09/01/16 08:19; Admin Dose 5 MG; Start 08/15/16 at 18:30 Rifampin 600 mg 600 mg DAILY PO Last administered on 09/01/16 08:18; Admin Dose 600 MG; Start 08/16/16 at 16:30 Ceftriaxone Sodium (Rocephin) 50 ml @ 100 mls/hr Q24H IVPB Last administered on 09/01/16 16:22; Admin Dose 100 MLS/HR; Start 08/16/16 at 15:30 IV Flush (NS 10 ml) 10 ml PRN PRN IV IV PROTOCOL; Start 08/16/16 at 15:30 Collagenase (Santyl) 1 applic DAILY TOP Last administered on 09/01/16 08:20; Admin Dose 1 APPLIC; Start 08/17/16 at 09:00 Pantoprazole (Protonix Tab) 40 mg DAILY@06 PO Last administered on 09/02/16 05 :29; Admin Dose 40 MG; Start 08/20/16 at 06:00 Diphenhydramine HCl (Benadryl) 25 mg Q6H PRN IV ITCHING Last administered on 10:00; Admin Dose 25 MG; Start 08/22/16 at 12:00 Fluconazole (Diflucan) 100 mg DAILY NGT Last administered on 09/01/16 08:19; Admin Dose 100 MG; Start 08/24/16 at 09:00 Loratadine (Claritin) 10 mg DAILY PO Last administered on 09/01/16 08:19; Admin Dose 10 MG; Start 08/23/16 at 14:30 Insulin Glargine (Lantus) 10 unit HS SC Last administered on 09/01/16 21:08; Admin Dose 10 UNIT; Start 08/23/16 at 21:00 Hydroxyzine HCl (Atarax) 25 mg Q6H PRN PO ITCHING Last administered on 13:24; Admin Dose 25 MG; Start 08/26/16 at 21:00 Gentamicin Sulfate 1 applic 1 applic DAILY TOP Last administered on 09/01/16 08:20; Admin Dose 1 APPLIC; Start 08/29/16 at 18:00 Vancomycin HCl/ Sodium Chloride (Vancocin/NS) 150 ml @ 75 mls/hr Q24H IVPB Last administered on 09/01/16 08:25; Admin Dose 75 MLS/HR; Start 09/01/16 at 09 :00 Furosemide (Lasix) 20 mg DAILY IV ; Start 09/02/16 at 09:00 Methylprednisolone Sodium Succinate (Solu-Medrol) 40 mg Q12 IV Last administered on 09/01/16 21:04; Admin Dose 40 MG; Start 09/01/16 at 11:00 Insulin Human NPH (Humulin N) 10 unit BID SC Last administered on 09/01/16 21: 44; Admin Dose 10 UNIT; Start 09/01/16 at 11:00 Famotidine (Pepcid Iv) 20 mg BID IV Last administered on 09/01/16 21:04; Admin Dose 20 MG; Start 09/01/16 at 11:00 Diphenhydramine HCl (Benadryl) 25 mg BID IV Last administered on 09/01/16 21: 05; Admin Dose 25 MG; Start 09/01/16 at 11:00 KIKE WRIGHT MD Sep 02, 2016 08:18
[2016-09-02 08:25] VITALS: BP 167/81; RESP 18
[2016-09-02] MEDS: LORATADINE 10 MG TAB PO SCH (08:50)
[2016-09-02] MEDS: METHYLPREDNISOLONE 40 MG INJ IV SCH (08:51)
[2016-09-02] MEDS: DIPHENHYDRAMINE 50 MG INJ IV SCH ×2 (08:51→20:31)
[2016-09-02] MEDS: RIFAMPIN 300 MG CAP PO SCH (08:52)
[2016-09-02] MEDS: FLUCONAZOLE 100 MG TAB NGT SCH (08:52)
[2016-09-02] MEDS: LINAGLIPTIN 5 MG TABLET PO SCH (08:52)
[2016-09-02] MEDS: METHIMAZOLE 5 MG TAB PO SCH (08:52)
[2016-09-02] MEDS: FAMOTIDINE 20 MG INJ IV SCH (08:53)
[2016-09-02] MEDS: COLLAGENASE 30 GM TUBE TOP SCH (08:53)
[2016-09-02] MEDS: METOPROLOL 50 MG TAB PO SCH ×2 (08:53→20:24)
[2016-09-02] MEDS: MUPIROCIN 2% 22 GM OINT TOP SCH ×2 (08:54→20:30)
[2016-09-02] MEDS: VANCOMYCIN 750 MG in SOD CHLORIDE 0.9% 150 ML IVPB SCH (09:00)
[2016-09-02] MEDS ORDERED: FUROSEMIDE 20 MG INJ IV SCH (09:00)
[2016-09-02] MEDS: GENTAMICIN 0.1% 15 GM OINT TOP SCH (09:05)
--- NOTE | 2016-09-02 10:23 | CONS ---
Date/Time of Note Date/Time of Note DATE: 09/02/16 TIME: 10:15 Assessment/Plan Assessment/Plan Chief Complaint/Hosp Course ID PROGRESS NOTE TOTAL ABX DAY #20 => Vanco IV, Ceftriaxone, Rifampin, Diflucan 24H INTERVAL SUMMARY * Awake, alert, follows commands, left sided hemiplegia - tells me she feels good * CXR last night bilateral interstitial edema, Pneumonitis -> O2 via NC 2L * No fevers, renal fx stable, WBC normalized * Chart reviewed: polymicrobial BLEXT feet wounds have been debrided - received PRBC Tx on 08/31/16 PHYSICAL EXAMINATION: GENERAL: 81 yo F HEENT: Unremarkable = eyes remain closed NECK: Supple, trachea midline. CHEST: Rise symmetrical without dyspnea HEART: RRR ABDOMEN: Soft EXTREMITIES: Warm -> BUEXT w/edema L>R, BLEXT DSG C/D/I ID ASSESSMENT: 81 yo F w.PMHx CVA w/left sided hemiparesis admit with: 1. s/p Sepsis w/ Methicillin-resistant Staphylococcus aureus bacteremia = RESOLVED * Repeat BCx(-) * Leukocytosis = resolved * No fevers 2. s/p Polymicrobial urinary tract infection with urine culture growing MRSA and E. coli.= RESOLVED 3. Probable neurogenic bladder 4. Non-healing BLEXT Bilateral heel cellulitis with open wounds, right more than left with right foot wound culture growing MRSA/Proteus Miribilis/ACBA/ YEAST * X-RAY: Right foot reveals a calcaneal deformity, likely from deformity or trauma. Osteopenia, without evidence of osteomyelitis. * X-RAY: Left foot without fracture or dislocation. Osteopenia, without focal blastic or lytic lesion. 5. Peripheral vascular disease 6. HTN, HLD, Atherosclerosis 7. 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 Atrial fibrillation w/hx of RVR 9. Anemia, status post hematemesis and EGD that revealed Faye-Johnson tear and chronic gastritis. 10. GERD 11. Hyperthyroidism 12. LUEXT Edema 13. Pneumonitis => HCAP superimposed on interstitial edema/pulm edema (+)MRSA Nares->Bactroban ABX ALLERGY: PCN, SULFA INVASIVES: *PIV CURRENT ABX: #20 => Vanco IV, Ceftriaxone, Rifampin, Diflucan ID RECOMMENDATIONS: * CONTINUE Current ABX & wound care * Further recs APC . . Problems: Consultation Date/Type/Reason Admit Date/Time Aug 14, 2016 at 01:54 Initial Consult Date 08/15/16 Type of Consultation: id Referring Provider: SÁNCHEZ WOMACK MD Exam/Review of Systems Vital Signs Vitals Vital Signs Date Time Temp Pulse Resp B/P Pulse Ox O2 Delivery O2 Flow Rate FiO2 09/02/16 08:25 97.4 97 18 167/81 99 09/01/16 23:31 2.0 09/01/16 08:27 Nasal Cannula Intake and Output 09/01/16 09/01/16 09/02/16 15:00 23:00 07:00 Intake Total 670 ml 320 ml Output Total 3000 ml 1500 ml Balance -2330 ml -1180 ml Results Result Diagram: 09/02/16 0415 09/02/16 0515 Results 24 hrs Laboratory Tests Test 09/01/16 12:12 09/01/16 17:45 09/01/16 21:02 09/02/16 02:56 Bedside Glucose 127 191 230 H 81 Test 09/02/16 04:15 09/02/16 05:15 09/02/16 07:47 Basophils # 0.0 Basophils % 0.3 Blood Morphology Comment Eosinophils # 0.0 Eosinophils % 0.0 Hematocrit 28.2 L Hemoglobin 9.7 L Lymphocytes # 1.2 Lymphocytes % 21.6 Mean Corpuscular Hemoglobin 29.6 Mean Corpuscular Hemoglobin Concent 34.5 Mean Corpuscular Volume 85.8 Mean Platelet Volume 8.8 Monocytes # 0.2 L Monocytes % 4.0 Neutrophils # 4.0 Neutrophils % 74.1 Nucleated Red Blood Cells # 0.0 Nucleated Red Blood Cells % 0.0 Platelet Count 190 Red Blood Count 3.29 L Red Cell Distribution Width 16.6 H White Blood Count 5.4 Anion Gap 8 Blood Urea Nitrogen 14 Calcium Level 7.4 L Carbon Dioxide Level 38 H Chloride Level 96 L Creatinine 0.66 Glucose Level 72 # Magnesium Level 1.7 Phosphorus Level 3.1 Potassium Level 3.4 L Sodium Level 139 Bedside Glucose 77 Medications Medications Current Medications Lorazepam (Ativan) 0.5 mg Q6H PRN IV ANXIETY Last administered on 08/31/16 21: 56; Admin Dose 0.5 MG; Start 08/13/16 at 16:00 Ondansetron HCl (Zofran Inj) 4 mg Q6H PRN IV NAUSEA AND/OR VOMITING Last administered on 08/27/16 03:37; Admin Dose 4 MG; Start 08/13/16 at 16:00 Nitroglycerin (Nitroglycerin (Sl Tab) 0.4 Mg) 1 tab Q5M PRN SL CHEST PAIN Last administered on 08/21/16 23:04; Admin Dose 1 TAB; Start 08/13/16 at 16:00 Acetaminophen (Tylenol Supp) 650 mg Q6H PRN NE PAIN LEVEL 1-3 OR FEVER; Start 08/13/16 at 16:00 Morphine Sulfate (morphine) 2 mg Q4H PRN IV PAIN LEVEL 7-10 Last administered on 09/01/16 23:12; Admin Dose 2 MG; Start 08/13/16 at 16:00 Bisacodyl (Dulcolax) 5 mg DAILY PRN PO CONSTIPATION Last administered on 12:18; Admin Dose 5 MG; Start 08/13/16 at 16:00 Miscellaneous Information 1 ea NOTE XX ; Start 08/13/16 at 17:30 Glucose (Glutose) 15 gm Q15M PRN PO DECREASED GLUCOSE; Start 08/13/16 at 17:30 Glucose (Glutose) 22.5 gm Q15M PRN PO DECREASED GLUCOSE; Start 08/13/16 at 17:30 Dextrose (D50w Syringe) 25 ml Q15M PRN IV DECREASED GLUCOSE Last administered on 08/29/16 08:13; Admin Dose 25 ML; Start 08/13/16 at 17:30 Dextrose (D50w Syringe) 50 ml Q15M PRN IV DECREASED GLUCOSE Last administered on 08/23/16 06:16; Admin Dose 50 ML; Start 08/13/16 at 17:30 Glucagon (Glucagen) 1 mg Q15M PRN IM DECREASED GLUCOSE; Start 08/13/16 at 17:30 Glucose (Glutose) 15 gm Q15M PRN BUCCAL DECREASED GLUCOSE; Start 08/13/16 at 17: 30 Mupirocin (Bactroban) 1 applic BID TOP Last administered on 09/02/16 08:54; Admin Dose 1 APPLIC; Start 08/15/16 at 13:00 Atorvastatin Calcium (Lipitor) 10 mg QHS PO Last administered on 09/01/16 21: 31; Admin Dose 10 MG; Start 08/15/16 at 21:00 Metoprolol Tartrate (Lopressor) 50 mg BID PO Last administered on 09/02/16 08: 53; Admin Dose 50 MG; Start 08/15/16 at 15:00 Diagnostic Test (Pha) (Accucheck) 1 ea 02 XX Last administered on 09/02/16 02: 57; Admin Dose 1 EA; Start 08/16/16 at 02:00 Methimazole (Tapazole) 20 mg DAILY PO Last administered on 09/02/16 08:52; Admin Dose 20 MG; Start 08/15/16 at 15:00 Linagliptin (Tradjenta) 5 mg DAILY PO Last administered on 09/02/16 08:52; Admin Dose 5 MG; Start 08/15/16 at 18:30 Rifampin 600 mg 600 mg DAILY PO Last administered on 09/02/16 08:52; Admin Dose 600 MG; Start 08/16/16 at 16:30 Ceftriaxone Sodium (Rocephin) 50 ml @ 100 mls/hr Q24H IVPB Last administered on 09/01/16 16:22; Admin Dose 100 MLS/HR; Start 08/16/16 at 15:30 IV Flush (NS 10 ml) 10 ml PRN PRN IV IV PROTOCOL; Start 08/16/16 at 15:30 Collagenase (Santyl) 1 applic DAILY TOP Last administered on 09/02/16 08:53; Admin Dose 1 APPLIC; Start 08/17/16 at 09:00 Pantoprazole (Protonix Tab) 40 mg DAILY@06 PO Last administered on 09/02/16 05 :29; Admin Dose 40 MG; Start 08/20/16 at 06:00 Diphenhydramine HCl (Benadryl) 25 mg Q6H PRN IV ITCHING Last administered on 10:00; Admin Dose 25 MG; Start 08/22/16 at 12:00 Fluconazole (Diflucan) 100 mg DAILY NGT Last administered on 09/02/16 08:52; Admin Dose 100 MG; Start 08/24/16 at 09:00 Loratadine (Claritin) 10 mg DAILY PO Last administered on 09/02/16 08:50; Admin Dose 10 MG; Start 08/23/16 at 14:30 Insulin Glargine (Lantus) 10 unit HS SC Last administered on 09/01/16 21:08; Admin Dose 10 UNIT; Start 08/23/16 at 21:00 Hydroxyzine HCl (Atarax) 25 mg Q6H PRN PO ITCHING Last administered on 13:24; Admin Dose 25 MG; Start 08/26/16 at 21:00 Gentamicin Sulfate 1 applic 1 applic DAILY TOP Last administered on 09/02/16 09:05; Admin Dose 1 APPLIC; Start 08/29/16 at 18:00 Vancomycin HCl/ Sodium Chloride (Vancocin/NS) 150 ml @ 75 mls/hr Q24H IVPB Last administered on 09/02/16 09:00; Admin Dose 75 MLS/HR; Start 09/01/16 at 09 :00 Furosemide (Lasix) 20 mg DAILY IV Last administered on 09/02/16 08:51; Admin Dose 20 MG; Start 09/02/16 at 09:00 Methylprednisolone Sodium Succinate (Solu-Medrol) 40 mg Q12 IV Last administered on 09/02/16 08:51; Admin Dose 40 MG; Start 09/01/16 at 11:00 Insulin Human NPH (Humulin N) 10 unit BID SC Last administered on 09/01/16 21: 44; Admin Dose 10 UNIT; Start 09/01/16 at 11:00 Famotidine (Pepcid Iv) 20 mg BID IV Last administered on 09/02/16 08:53; Admin Dose 20 MG; Start 09/01/16 at 11:00 Diphenhydramine HCl (Benadryl) 25 mg BID IV Last administered on 09/02/16 08: 51; Admin Dose 25 MG; Start 09/01/16 at 11:00 ALEXANDRA CHAVEZ NP Sep 02, 2016 10:23
--- NOTE | 2016-09-02 10:41 | PN ---
Date/Time of Note Date/Time of Note DATE: 09/02/16 TIME: 10:30 Assessment/Plan VTE Prophylaxis VTE Prophylaxis Intervention: LMWH Lines/Catheters IV Catheter Type (from [facility]): PICC Line Central line still needed: Yes Urinary Cath still in place: Yes Reason Cath still needed: urinary retention, pres ulcer contaminated by urine Assessment/Plan Chief Complaint/Hosp Course Assessment/Plan Chief Complaint/Hosp Course 1. Upper gastrointestinal bleeding. The patient was evaluated by gastroenterology. Esophagogastroduodenoscopy revealed a Faye-Johnson tear, chronic gastritis, and nodular duodenitis. Continue proton pump inhibitors. 2. Atrial fibrillation with rapid ventricular response. Currently, the rate is controlled. No anticoagulation because of underlying gastrointestinal bleed. Cardiology following. Stable from cardiac standpoint 3. Sepsis with underlying MRSA bacteremia, infected pressure ulcers, and urinary tract infection. Continue antibiotics. Infectious disease is on the case. We will discuss with infectious disease regarding length of antibiotic treatment 4. Infected B/L heel pressure ulcers. Seen and evaluated by podiatry. S/P local debridement of the left heel ulcer on 08/20/2016 with repeat debridement on 08/29/2016. 5. Essential hypertension. Continue antihypertensives. 6. Peripheral vascular disease. Monitor for acute changes. Anticoagulation on hold because of anemia. 7. Dyslipidemia. Continue statins. Fasting lipid panel showing low HDL and low total cholesterol. 8. Type 2 diabetes mellitus. Hemoglobin A1c 9.8. Continue sliding scale insulin. 9. Left upper extremity edema. Largely resolved. Left upper extremity venous Doppler study negative for any deep venous thrombosis. Continue elevation of left upper extremity. 10. Multiple pressure ulcers. Continue local wound care. Wound care consult. 11. Hyperthyroidism. The patient on methimazole. 12. MRSA colonization of the nares. Continue Bactroban. 13. Generalized maculopapular rashes with associated pruritus. Switched to p.o. steroids 14. Diastolic heart failure. Acute onset. Switch to p.o. potassium 15. Fluid, electrolytes and nutrition. Carbohydrate controlled, low- cholesterol diet. Replace potassium continue Lasix 16. DVT prophylaxis with serial sequential compression devices. No anticoagulation because of underlying anemia. 17. Gastrointestinal prophylaxis with proton pump inhibitors. Plan Switch to p.o. steroids and Lasix PT evaluation Anticipate discharge back to halfway facility tomorrow Problems: Subjective 24 Hr Interval Summary Free Text/Dictation Patient awake alert oriented this morning requesting to go back to halfway facility Denies chest pain or shortness of breath Exam/Review of Systems Vital Signs Vitals Vital Signs Date Time Temp Pulse Resp B/P Pulse Ox O2 Delivery O2 Flow Rate FiO2 09/02/16 08:25 97.4 97 18 167/81 99 09/01/16 23:31 2.0 09/01/16 08:27 Nasal Cannula Intake and Output 09/01/16 09/01/16 09/02/16 15:00 23:00 07:00 Intake Total 670 ml 320 ml Output Total 3000 ml 1500 ml Balance -2330 ml -1180 ml Exam GENERAL: Elderly lady awake alert oriented in bed comfortable at rest VITAL SIGNS: per chart NECK: Supple. No JVD or lymphadenopathy. CARDIAC EXAM: S1, S2. No added sounds or murmurs. CHEST: clear bilaterally, No added sounds, rales or wheezes ABDOMEN: Soft, nontender. No guarding or rebound. EXTREMITIES: No cyanosis, clubbing or edema +1 NEUROLOGIC: Generalized weakness. No focal deficits. Lundy catheter in place Results Result Diagram: 09/02/16 0415 09/02/16 0515 Results 24 hrs Laboratory Tests Test 09/01/16 12:12 09/01/16 17:45 09/01/16 21:02 09/02/16 02:56 Bedside Glucose 127 191 230 H 81 Test 09/02/16 04:15 09/02/16 05:15 09/02/16 07:47 Basophils # 0.0 Basophils % 0.3 Blood Morphology Comment Eosinophils # 0.0 Eosinophils % 0.0 Hematocrit 28.2 L Hemoglobin 9.7 L Lymphocytes # 1.2 Lymphocytes % 21.6 Mean Corpuscular Hemoglobin 29.6 Mean Corpuscular Hemoglobin Concent 34.5 Mean Corpuscular Volume 85.8 Mean Platelet Volume 8.8 Monocytes # 0.2 L Monocytes % 4.0 Neutrophils # 4.0 Neutrophils % 74.1 Nucleated Red Blood Cells # 0.0 Nucleated Red Blood Cells % 0.0 Platelet Count 190 Red Blood Count 3.29 L Red Cell Distribution Width 16.6 H White Blood Count 5.4 Anion Gap 8 Blood Urea Nitrogen 14 Calcium Level 7.4 L Carbon Dioxide Level 38 H Chloride Level 96 L Creatinine 0.66 Glucose Level 72 # Magnesium Level 1.7 Phosphorus Level 3.1 Potassium Level 3.4 L Sodium Level 139 Bedside Glucose 77 Medications Medications Current Medications Lorazepam (Ativan) 0.5 mg Q6H PRN IV ANXIETY Last administered on 08/31/16 21: 56; Admin Dose 0.5 MG; Start 08/13/16 at 16:00 Ondansetron HCl (Zofran Inj) 4 mg Q6H PRN IV NAUSEA AND/OR VOMITING Last administered on 08/27/16 03:37; Admin Dose 4 MG; Start 08/13/16 at 16:00 Nitroglycerin (Nitroglycerin (Sl Tab) 0.4 Mg) 1 tab Q5M PRN SL CHEST PAIN Last administered on 08/21/16 23:04; Admin Dose 1 TAB; Start 08/13/16 at 16:00 Acetaminophen (Tylenol Supp) 650 mg Q6H PRN SC PAIN LEVEL 1-3 OR FEVER; Start 08/13/16 at 16:00 Morphine Sulfate (morphine) 2 mg Q4H PRN IV PAIN LEVEL 7-10 Last administered on 09/01/16 23:12; Admin Dose 2 MG; Start 08/13/16 at 16:00 Bisacodyl (Dulcolax) 5 mg DAILY PRN PO CONSTIPATION Last administered on 12:18; Admin Dose 5 MG; Start 08/13/16 at 16:00 Miscellaneous Information 1 ea NOTE XX ; Start 08/13/16 at 17:30 Glucose (Glutose) 15 gm Q15M PRN PO DECREASED GLUCOSE; Start 08/13/16 at 17:30 Glucose (Glutose) 22.5 gm Q15M PRN PO DECREASED GLUCOSE; Start 08/13/16 at 17:30 Dextrose (D50w Syringe) 25 ml Q15M PRN IV DECREASED GLUCOSE Last administered on 08/29/16 08:13; Admin Dose 25 ML; Start 08/13/16 at 17:30 Dextrose (D50w Syringe) 50 ml Q15M PRN IV DECREASED GLUCOSE Last administered on 08/23/16 06:16; Admin Dose 50 ML; Start 08/13/16 at 17:30 Glucagon (Glucagen) 1 mg Q15M PRN IM DECREASED GLUCOSE; Start 08/13/16 at 17:30 Glucose (Glutose) 15 gm Q15M PRN BUCCAL DECREASED GLUCOSE; Start 08/13/16 at 17: 30 Mupirocin (Bactroban) 1 applic BID TOP Last administered on 09/02/16 08:54; Admin Dose 1 APPLIC; Start 08/15/16 at 13:00 Atorvastatin Calcium (Lipitor) 10 mg QHS PO Last administered on 09/01/16 21: 31; Admin Dose 10 MG; Start 08/15/16 at 21:00 Metoprolol Tartrate (Lopressor) 50 mg BID PO Last administered on 09/02/16 08: 53; Admin Dose 50 MG; Start 08/15/16 at 15:00 Diagnostic Test (Pha) (Accucheck) 1 ea 02 XX Last administered on 09/02/16 02: 57; Admin Dose 1 EA; Start 08/16/16 at 02:00 Methimazole (Tapazole) 20 mg DAILY PO Last administered on 09/02/16 08:52; Admin Dose 20 MG; Start 08/15/16 at 15:00 Linagliptin (Tradjenta) 5 mg DAILY PO Last administered on 09/02/16 08:52; Admin Dose 5 MG; Start 08/15/16 at 18:30 Rifampin 600 mg 600 mg DAILY PO Last administered on 09/02/16 08:52; Admin Dose 600 MG; Start 08/16/16 at 16:30 Ceftriaxone Sodium (Rocephin) 50 ml @ 100 mls/hr Q24H IVPB Last administered on 09/01/16 16:22; Admin Dose 100 MLS/HR; Start 08/16/16 at 15:30 IV Flush (NS 10 ml) 10 ml PRN PRN IV IV PROTOCOL; Start 08/16/16 at 15:30 Collagenase (Santyl) 1 applic DAILY TOP Last administered on 09/02/16 08:53; Admin Dose 1 APPLIC; Start 08/17/16 at 09:00 Pantoprazole (Protonix Tab) 40 mg DAILY@06 PO Last administered on 09/02/16 05 :29; Admin Dose 40 MG; Start 08/20/16 at 06:00 Diphenhydramine HCl (Benadryl) 25 mg Q6H PRN IV ITCHING Last administered on 10:00; Admin Dose 25 MG; Start 08/22/16 at 12:00 Fluconazole (Diflucan) 100 mg DAILY NGT Last administered on 09/02/16 08:52; Admin Dose 100 MG; Start 08/24/16 at 09:00 Loratadine (Claritin) 10 mg DAILY PO Last administered on 09/02/16 08:50; Admin Dose 10 MG; Start 08/23/16 at 14:30 Insulin Glargine (Lantus) 10 unit HS SC Last administered on 09/01/16 21:08; Admin Dose 10 UNIT; Start 08/23/16 at 21:00 Hydroxyzine HCl (Atarax) 25 mg Q6H PRN PO ITCHING Last administered on 13:24; Admin Dose 25 MG; Start 08/26/16 at 21:00 Gentamicin Sulfate 1 applic 1 applic DAILY TOP Last administered on 09/02/16 09:05; Admin Dose 1 APPLIC; Start 08/29/16 at 18:00 Vancomycin HCl/ Sodium Chloride (Vancocin/NS) 150 ml @ 75 mls/hr Q24H IVPB Last administered on 09/02/16 09:00; Admin Dose 75 MLS/HR; Start 09/01/16 at 09 :00 Furosemide (Lasix) 20 mg DAILY IV Last administered on 09/02/16 08:51; Admin Dose 20 MG; Start 09/02/16 at 09:00 Methylprednisolone Sodium Succinate (Solu-Medrol) 40 mg Q12 IV Last administered on 09/02/16 08:51; Admin Dose 40 MG; Start 09/01/16 at 11:00 Insulin Human NPH (Humulin N) 10 unit BID SC Last administered on 09/01/16 21: 44; Admin Dose 10 UNIT; Start 09/01/16 at 11:00 Famotidine (Pepcid Iv) 20 mg BID IV Last administered on 09/02/16 08:53; Admin Dose 20 MG; Start 09/01/16 at 11:00 Diphenhydramine HCl (Benadryl) 25 mg BID IV Last administered on 09/02/16 08: 51; Admin Dose 25 MG; Start 09/01/16 at 11:00 JODY TRACEY MD, [facility] Sep 02, 2016 10:41
--- NOTE | 2016-09-02 11:26 | CONS ---
Date/Time of Note Date/Time of Note DATE: 09/02/16 TIME: 11:18 Assessment/Plan Assessment/Plan Problems: (1) Hyperthyroidism Status: Chronic Comment: Pt. w/ improving thyroid function tests. Primary endo planning to increase methimazole from 20 to 25 mg/d. This was not done. Will implement this plan for him. (2) Diabetes mellitus type 2 in obese Status: Chronic Comment: FS up and down. Pt. started on methylprednisolone bid. Received 10 units NPH w/ methylprednisolone last night with slightly better than expected effect. This am NPH not available by pharmacy when medrol was given. Now too late to achieve desired effect of steroid. Will therefore give Regular insulin 8 units x 1 now to counteract the steroid. Cont. other background DM care. Consultation Date/Type/Reason Admit Date/Time Aug 14, 2016 at 01:54 Initial Consult Date 08/15/16 Type of Consultation: Endocrinology Reason for Consultation Thyrotoxicosis Referring Provider: SÁNCHEZ WOMACK MD 24 HR Interval Summary Constitutional: improved, no complaints Detailed Summary Respiratory: no complaints Cardiovascular: palpitations Gastrointestinal: no complaints Genitourinary: no complaints Musculoskeletal: no complaints Neurologic: no complaints Exam/Review of Systems Vital Signs Vitals Vital Signs Date Time Temp Pulse Resp B/P Pulse Ox O2 Delivery O2 Flow Rate FiO2 09/02/16 08:25 97.4 97 18 167/81 99 09/01/16 23:31 2.0 09/01/16 08:27 Nasal Cannula Intake and Output 09/01/16 09/01/16 09/02/16 15:00 23:00 07:00 Intake Total 670 ml 320 ml Output Total 3000 ml 1500 ml Balance -2330 ml -1180 ml Exam Constitutional: alert, obese, oriented Psych: nl mood/affect, no complaints Respiratory: clear to auscultation, normal air movement Cardiovascular: irregular rhythm, nl pulses, No edema, No murmurs/extra sounds, No regular rate and rhythm (mildly tachycardic), No rub Gastrointestinal: bowel sounds, nl liver, spleen, non-tender, soft, No mass, No rebound or guarding Musculoskeletal: nl extremities to inspection Extremities: normal pulses, No clubbing, No cyanosis, No edema Neurological: COMMODITIES BROKER II-XII intact, nl mental status, nl speech, nl strength Additional Comments Bedside Glucose - 72 Hours Test 08/30/16 11:44 08/30/16 17:06 08/30/16 21:02 08/31/16 08:04 Bedside Glucose 129mg/dL (70-220) 151mg/dL (70-220) 144mg/dL (70-220) 178mg/dL (70-220) Test 08/31/16 12:11 08/31/16 17:17 08/31/16 21:04 09/01/16 02:29 Bedside Glucose 219mg/dL (70-220) 218mg/dL (70-220) 205mg/dL (70-220) 197mg/dL (70-220) Test 09/01/16 07:53 09/01/16 12:12 09/01/16 17:45 09/01/16 21:02 Bedside Glucose 160mg/dL (70-220) 127mg/dL (70-220) 191mg/dL (70-220) 230mg/dL (70-220) H Test 09/02/16 02:56 09/02/16 07:47 09/02/16 11:04 Bedside Glucose 81mg/dL (70-220) 77mg/dL (70-220) 169mg/dL (70-220) Results Result Diagram: 09/02/16 0415 09/02/16 0515 Results 24 hrs Laboratory Tests Test 09/01/16 12:12 09/01/16 17:45 09/01/16 21:02 09/02/16 02:56 Bedside Glucose 127 191 230 H 81 Test 09/02/16 04:15 09/02/16 05:15 09/02/16 07:47 09/02/16 11:04 Basophils # 0.0 Basophils % 0.3 Blood Morphology Comment Eosinophils # 0.0 Eosinophils % 0.0 Hematocrit 28.2 L Hemoglobin 9.7 L Lymphocytes # 1.2 Lymphocytes % 21.6 Mean Corpuscular Hemoglobin 29.6 Mean Corpuscular Hemoglobin Concent 34.5 Mean Corpuscular Volume 85.8 Mean Platelet Volume 8.8 Monocytes # 0.2 L Monocytes % 4.0 Neutrophils # 4.0 Neutrophils % 74.1 Nucleated Red Blood Cells # 0.0 Nucleated Red Blood Cells % 0.0 Platelet Count 190 Red Blood Count 3.29 L Red Cell Distribution Width 16.6 H White Blood Count 5.4 Anion Gap 8 Blood Urea Nitrogen 14 Calcium Level 7.4 L Carbon Dioxide Level 38 H Chloride Level 96 L Creatinine 0.66 Glucose Level 72 # Magnesium Level 1.7 Phosphorus Level 3.1 Potassium Level 3.4 L Sodium Level 139 Bedside Glucose 77 169 Medications Medications Current Medications Lorazepam (Ativan) 0.5 mg Q6H PRN IV ANXIETY Last administered on 08/31/16 21: 56; Admin Dose 0.5 MG; Start 08/13/16 at 16:00 Ondansetron HCl (Zofran Inj) 4 mg Q6H PRN IV NAUSEA AND/OR VOMITING Last administered on 08/27/16 03:37; Admin Dose 4 MG; Start 08/13/16 at 16:00 Nitroglycerin (Nitroglycerin (Sl Tab) 0.4 Mg) 1 tab Q5M PRN SL CHEST PAIN Last administered on 08/21/16 23:04; Admin Dose 1 TAB; Start 08/13/16 at 16:00 Acetaminophen (Tylenol Supp) 650 mg Q6H PRN [place] PAIN LEVEL 1-3 OR FEVER; Start 08/13/16 at 16:00 Morphine Sulfate (morphine) 2 mg Q4H PRN IV PAIN LEVEL 7-10 Last administered on 09/01/16 23:12; Admin Dose 2 MG; Start 08/13/16 at 16:00 Bisacodyl (Dulcolax) 5 mg DAILY PRN PO CONSTIPATION Last administered on 12:18; Admin Dose 5 MG; Start 08/13/16 at 16:00 Miscellaneous Information 1 ea NOTE XX ; Start 08/13/16 at 17:30 Glucose (Glutose) 15 gm Q15M PRN PO DECREASED GLUCOSE; Start 08/13/16 at 17:30 Glucose (Glutose) 22.5 gm Q15M PRN PO DECREASED GLUCOSE; Start 08/13/16 at 17:30 Dextrose (D50w Syringe) 25 ml Q15M PRN IV DECREASED GLUCOSE Last administered on 08/29/16 08:13; Admin Dose 25 ML; Start 08/13/16 at 17:30 Dextrose (D50w Syringe) 50 ml Q15M PRN IV DECREASED GLUCOSE Last administered on 08/23/16 06:16; Admin Dose 50 ML; Start 08/13/16 at 17:30 Glucagon (Glucagen) 1 mg Q15M PRN IM DECREASED GLUCOSE; Start 08/13/16 at 17:30 Glucose (Glutose) 15 gm Q15M PRN BUCCAL DECREASED GLUCOSE; Start 08/13/16 at 17: 30 Mupirocin (Bactroban) 1 applic BID TOP Last administered on 09/02/16 08:54; Admin Dose 1 APPLIC; Start 08/15/16 at 13:00 Atorvastatin Calcium (Lipitor) 10 mg QHS PO Last administered on 09/01/16 21: 31; Admin Dose 10 MG; Start 08/15/16 at 21:00 Metoprolol Tartrate (Lopressor) 50 mg BID PO Last administered on 09/02/16 08: 53; Admin Dose 50 MG; Start 08/15/16 at 15:00 Diagnostic Test (Pha) (Accucheck) 1 ea 02 XX Last administered on 09/02/16 02: 57; Admin Dose 1 EA; Start 08/16/16 at 02:00 Methimazole (Tapazole) 20 mg DAILY PO Last administered on 09/02/16 08:52; Admin Dose 20 MG; Start 08/15/16 at 15:00 Linagliptin (Tradjenta) 5 mg DAILY PO Last administered on 09/02/16 08:52; Admin Dose 5 MG; Start 08/15/16 at 18:30 Rifampin 600 mg 600 mg DAILY PO Last administered on 09/02/16 08:52; Admin Dose 600 MG; Start 08/16/16 at 16:30 Ceftriaxone Sodium (Rocephin) 50 ml @ 100 mls/hr Q24H IVPB Last administered on 09/01/16 16:22; Admin Dose 100 MLS/HR; Start 08/16/16 at 15:30 IV Flush (NS 10 ml) 10 ml PRN PRN IV IV PROTOCOL; Start 08/16/16 at 15:30 Collagenase (Santyl) 1 applic DAILY TOP Last administered on 09/02/16 08:53; Admin Dose 1 APPLIC; Start 08/17/16 at 09:00 Pantoprazole (Protonix Tab) 40 mg DAILY@06 PO Last administered on 09/02/16 05 :29; Admin Dose 40 MG; Start 08/20/16 at 06:00 Diphenhydramine HCl (Benadryl) 25 mg Q6H PRN IV ITCHING Last administered on 10:00; Admin Dose 25 MG; Start 08/22/16 at 12:00 Fluconazole (Diflucan) 100 mg DAILY NGT Last administered on 09/02/16 08:52; Admin Dose 100 MG; Start 08/24/16 at 09:00 Loratadine (Claritin) 10 mg DAILY PO Last administered on 09/02/16 08:50; Admin Dose 10 MG; Start 08/23/16 at 14:30 Insulin Glargine (Lantus) 10 unit HS SC Last administered on 09/01/16 21:08; Admin Dose 10 UNIT; Start 08/23/16 at 21:00 Hydroxyzine HCl (Atarax) 25 mg Q6H PRN PO ITCHING Last administered on 13:24; Admin Dose 25 MG; Start 08/26/16 at 21:00 Gentamicin Sulfate 1 applic 1 applic DAILY TOP Last administered on 09/02/16 09:05; Admin Dose 1 APPLIC; Start 08/29/16 at 18:00 Vancomycin HCl/ Sodium Chloride (Vancocin/NS) 150 ml @ 75 mls/hr Q24H IVPB Last administered on 09/02/16 09:00; Admin Dose 75 MLS/HR; Start 09/01/16 at 09 :00 Diphenhydramine HCl 25 mg 25 mg BID IV Last administered on 09/02/16 08:51; Admin Dose 25 MG; Start 09/01/16 at 11:00 Potassium Chloride (KCl 40 MEQ/250 ML NS) 250 ml @ 62.5 mls/hr ONCE ONCE IVPB ; Start 09/02/16 at 12:30; Stop 09/02/16 at 16:29 Prednisone (Prednisone) 40 mg DAILY PO ; Start 09/03/16 at 09:00 Furosemide (Lasix) 40 mg DAILY IV ; Start 09/03/16 at 09:00 Insulin Human NPH (Humulin N) 10 unit AM SC ; Start 09/03/16 at 09:00 Insulin Human Regular (Humulin R) 8 unit ONCE ONCE SC ; Start 09/02/16 at 12:30 ; Stop 09/02/16 at 12:31 JARRET SIGALA MD Sep 02, 2016 11:26
[2016-09-02] MEDS ORDERED: POTASSIUM CHLORIDE 250 ML IVPB ONE (12:30)
[2016-09-02] MEDS ORDERED: INSULIN REGULAR, HUMAN 100 UNIT/1 ML 3ML VIAL SC ONE (12:30)
[2016-09-02] MEDS: CEFTRIAXONE 1 GM/50 ML (PMX) 50 ML IVPB SCH (16:05)
[2016-09-02 19:24] VITALS: BP 156/75; RESP 18
[2016-09-02] MEDS: ATORVASTATIN 10 MG TAB PO SCH (20:24)
[2016-09-02] MEDS: INSULIN GLARGINE [LANtus] 3 ML PEN SC SCH (20:34)
[2016-09-02] MEDS: BISACODYL (EC) 5 MG TAB PO PRN (21:51)
[2016-09-03] MEDS: ACCUCHECK XX SCH (01:45)
[2016-09-03] MEDS: PANTOPRAZOLE (EC) 40 MG TAB PO SCH (05:25)
--- NOTE | 2016-09-03 06:21 | CONS ---
DATE OF ADMISSION: 08/14/2016 DATE OF CONSULTATION: 09/02/2016 PALLIATIVE CARE CONSULTATION HISTORY OF PRESENT ILLNESS: This is an 81-year-old female who has had a alec course who was admitt ed to [facility] on 08/13/2016 presenting with weakness and had witnessed emesis x 2 in the emergency room. The patient has a past medical history of cardiovascular problems includin g congestive heart failure and past history of CVA, and during the hospital course, diagnosed atrial fibrillation with rapid ventricular response, sepsis syndrome, multiple fluid and electrolyte abnor malities, other lesser comorbid medical problems, diagnosed with meth resistant bacteremia and polym icrobial urinary tract infections. The patient has had an extensive workup since hospitalization. Atrial fibrillation is under control at this time. She has been treated for infected pressure ulcer s, urinary tract infection, and once again MRSA bacteremia. Dyslipidemia, type 2 diabetes, and hype rthyroidism have been addressed during her stay. MEDICATIONS: Please refer to reconciliation sheet. ALLERGIES: Please refer to reconciliation sheets. MAJOR MEDICAL PROBLEMS IN THE PAST: Extensive; however, for this consultation, as per history of pr esent illness. SOCIAL HISTORY: Apparently, the patient lives in a residential unit the patient states for the last 12 years. FAMILY HISTORY: Not available. REVIEW OF SYSTEMS: Not available. PHYSICAL EXAMINATION: GENERAL: Shows an ashen-appearing female. VITAL SIGNS: Blood pressure 167/81, pulse 97 and regular, respirations of 18, temperature 97.4 degr ees, 99% saturations on room air. HEENT: She is normocephalic and atraumatic. Anicteric, acyanotic. CHEST: Bilateral distant breath sounds throughout both lung mak. COR: S1, S2, without S3, S4, murmur, gallop, rub. Normal rate, normal rhythm. ABDOMEN: Grossly benign. NEUROLOGIC: She is oriented x3 with difficulty. Motor and sensory findings are grossly intact on e xamination. Cannot evaluate cerebellar function. Cranial nerves II through XII, once again, are in tact grossly. LABORATORY DATA: Tests have been reviewed. ASSESSMENT AND PLAN: The reason for consultation was to address ongoing level of care with family boris cortez who is Som Leija who lives in [place], according to the patient. The patient has had a alec hospital course as listed in the history of present illness. Most pressing medical problems at this time, from my evaluation and the patient's medical records, including atrial fibrillation, h istory of sepsis syndrome, open pressure ulcers bilateral heels, possible mental status changes to b e determined after I speak to patient's son, urinary tract infection, and diastolic heart failure. There are other comorbid medical problems having complicated this hospitalization. I had placed a c all into patient's son, Som, today and was speaking to him and lost connection. I tried to contact him back. In the course of the conversation, he was very pleasant, and we were dis cussing his mother's current condition, and I was opening up the conversation to her prognosis and o ngoing level of care, both short term and group home prognosis, especially since the patient has had a bout of sepsis which predisposes her to another major septic complication in the future, complicat ed by diabetes, heart failure, urinary tract infection, and a history of upper GI bleed. I will con tact him once again. I have left my phone number information on his voicemail. Dictated By: OSBALDO HANSON MD, LP/TIN Conf#: [id number] DID#: [id number]
[2016-09-03 06:41] LABS: BASOPHIL # 0.1 10^3/ul (0.0-0.1); BASOPHILS % 0.9 % (0.0-2.0); EOSINOPHILS # 0.4 10^3/ul (0.0-0.5); HEMATOCRIT 28.1 % (37.0-47.0); HEMOGLOBIN 9.5 g/dl (12.0-16.0); LYMPHOCYTES # 2.5 10^3/ul (0.8-2.9); LYMPHOCYTES % 35.2 % (15.0-51.0); MEAN CORPUSCULAR HEMOGLOBIN 29.3 pg (29.0-33.0); MEAN CORPUSCULAR HGB CONC 33.9 g/dl (32.0-37.0); MEAN CORPUSCULAR VOLUME 86.5 fl (82.0-101.0); MEAN PLATELET VOLUME 8.9 fl (7.4-10.4); MONOCYTE # 0.6 10^3/ul (0.3-0.9); MONOCYTES % 8.6 % (0.0-11.0); NEUTROPHIL # 3.5 10^3/ul (1.6-7.5); NEUTROPHILS % 49.3 % (39.0-77.0); PLATELET COUNT 188 10^3/UL (140-440); RED BLOOD COUNT 3.26 10^6/ul (4.20-5.40); RED CELL DISTRIBUTION WIDTH 16.7 % (11.5-14.5); UNCORRECTED WBC 7.2 10^3/ul (4.8-10.8); WHITE BLOOD COUNT 7.2 10^3/ul (4.8-10.8)
[2016-09-03 06:45] LABS: CONDITION 1; LH ANALYZER COMMENTS 1
[2016-09-03 06:50] LABS: POTASSIUM 3.1 mmol/L (3.5-5.1)
[2016-09-03 06:53] LABS: CREATININE 0.71 mg/dl (0.44-1.00); PHOSPHORUS 2.9 mg/dl (2.5-4.9)
[2016-09-03 06:54] LABS: CALCIUM 7.3 mg/dl (8.4-10.2); MAGNESIUM 1.5 mg/dl (1.7-2.5)
[2016-09-03 07:55] VITALS: BP 134/63; RESP 18
[2016-09-03] MEDS: INSULIN ASPART [NOVOLOG] 3 ML PEN SC SCH ×4 (08:15→20:53)
[2016-09-03] MEDS: DIPHENHYDRAMINE 50 MG INJ IV SCH ×2 (08:35→20:40)
[2016-09-03] MEDS: FUROSEMIDE 40 MG INJ IV SCH (08:35)
[2016-09-03] MEDS: VANCOMYCIN 750 MG in SOD CHLORIDE 0.9% 150 ML IVPB SCH (08:36)
[2016-09-03] MEDS: FLUCONAZOLE 100 MG TAB NGT SCH (08:37)
[2016-09-03] MEDS: LORATADINE 10 MG TAB PO SCH (08:37)
[2016-09-03] MEDS: predniSONE 20 MG TAB PO SCH (08:38)
[2016-09-03] MEDS: METOPROLOL 50 MG TAB PO SCH ×2 (08:38→20:43)
[2016-09-03] MEDS: RIFAMPIN 300 MG CAP PO SCH (08:39)
[2016-09-03] MEDS: METHIMAZOLE 5 MG TAB PO SCH (08:40)
[2016-09-03] MEDS: MUPIROCIN 2% 22 GM OINT TOP SCH ×2 (08:41→20:49)
[2016-09-03] MEDS: GENTAMICIN 0.1% 15 GM OINT TOP SCH (08:41)
[2016-09-03] MEDS: COLLAGENASE 30 GM TUBE TOP SCH (08:41)
[2016-09-03] MEDS: LINAGLIPTIN 5 MG TABLET PO SCH (08:41)
[2016-09-03] MEDS: NPH, HUMAN INSULIN ISOPHANE 3ML VIAL SC SCH (08:43)
[2016-09-03] MEDS ORDERED: POTASSIUM CHLORIDE (SR) 20 MEQ TAB PO STA (09:02)
--- NOTE | 2016-09-03 09:02 | CONS ---
Date/Time of Note Date/Time of Note DATE: 09/03/16 TIME: 09:00 Consultation Date/Type/Reason Admit Date/Time Aug 14, 2016 at 01:54 Initial Consult Date 08/19/16 Type of Consultation: Endocrinology Referring Provider: SÁNCHEZ WOMACK MD 24 HR Interval Summary Free Text/Dictation Sepsis Atrial fibrillation with rapid ventricular rates, improved Acute blood loss anemia/GI bleed Preserved ejection fraction Hyperthyroidism History of hypertension History of CVA Diabetes -heart rate trend overall stable, continue Lopressor and BP tolerates, no anticoagulation until ok from GI perspective hypokalemia m- replace K Constitutional: no complaints Exam/Review of Systems Vital Signs Vitals Vital Signs Date Time Temp Pulse Resp B/P Pulse Ox O2 Delivery O2 Flow Rate FiO2 09/03/16 07:55 98.4 104 18 134/63 96 09/02/16 23:05 2.0 09/01/16 08:27 Nasal Cannula Intake and Output 09/02/16 09/02/16 09/03/16 15:00 23:00 07:00 Intake Total 450 ml 420 ml Output Total 800 ml Balance 450 ml -380 ml Results Result Diagram: 09/03/16 0530 09/03/16 0530 Results 24 hrs Laboratory Tests Test 09/02/16 11:04 09/02/16 12:07 09/02/16 17:08 09/02/16 20:29 Bedside Glucose 169 158 119 136 Test 09/03/16 05:30 09/03/16 08:31 Anion Gap 6 L Basophils # 0.1 Basophils % 0.9 Blood Morphology Comment Blood Urea Nitrogen 13 Calcium Level 7.3 L Carbon Dioxide Level 40 H Chloride Level 97 Creatinine 0.71 Eosinophils # 0.4 Eosinophils % 6.0 Glucose Level 63 L Hematocrit 28.1 L Hemoglobin 9.5 L Lymphocytes # 2.5 Lymphocytes % 35.2 Magnesium Level 1.5 L Mean Corpuscular Hemoglobin 29.3 Mean Corpuscular Hemoglobin Concent 33.9 Mean Corpuscular Volume 86.5 Mean Platelet Volume 8.9 Monocytes # 0.6 Monocytes % 8.6 Neutrophils # 3.5 Neutrophils % 49.3 Nucleated Red Blood Cells # 0.0 Nucleated Red Blood Cells % 0.0 Phosphorus Level 2.9 Platelet Count 188 Potassium Level 3.1 L Red Blood Count 3.26 L Red Cell Distribution Width 16.7 H Sodium Level 140 White Blood Count 7.2 # Bedside Glucose 94 Medications Medications Current Medications Lorazepam (Ativan) 0.5 mg Q6H PRN IV ANXIETY Last administered on 08/31/16 21: 56; Admin Dose 0.5 MG; Start 08/13/16 at 16:00 Ondansetron HCl (Zofran Inj) 4 mg Q6H PRN IV NAUSEA AND/OR VOMITING Last administered on 08/27/16 03:37; Admin Dose 4 MG; Start 08/13/16 at 16:00 Nitroglycerin (Nitroglycerin (Sl Tab) 0.4 Mg) 1 tab Q5M PRN SL CHEST PAIN Last administered on 08/21/16 23:04; Admin Dose 1 TAB; Start 08/13/16 at 16:00 Acetaminophen (Tylenol Supp) 650 mg Q6H PRN [place] PAIN LEVEL 1-3 OR FEVER; Start 08/13/16 at 16:00 Morphine Sulfate (morphine) 2 mg Q4H PRN IV PAIN LEVEL 7-10 Last administered on 09/01/16 23:12; Admin Dose 2 MG; Start 08/13/16 at 16:00 Bisacodyl (Dulcolax) 5 mg DAILY PRN PO CONSTIPATION Last administered on 21:51; Admin Dose 5 MG; Start 08/13/16 at 16:00 Miscellaneous Information 1 ea NOTE XX ; Start 08/13/16 at 17:30 Glucose (Glutose) 15 gm Q15M PRN PO DECREASED GLUCOSE; Start 08/13/16 at 17:30 Glucose (Glutose) 22.5 gm Q15M PRN PO DECREASED GLUCOSE; Start 08/13/16 at 17:30 Dextrose (D50w Syringe) 25 ml Q15M PRN IV DECREASED GLUCOSE Last administered on 08/29/16 08:13; Admin Dose 25 ML; Start 08/13/16 at 17:30 Dextrose (D50w Syringe) 50 ml Q15M PRN IV DECREASED GLUCOSE Last administered on 08/23/16 06:16; Admin Dose 50 ML; Start 08/13/16 at 17:30 Glucagon (Glucagen) 1 mg Q15M PRN IM DECREASED GLUCOSE; Start 08/13/16 at 17:30 Glucose (Glutose) 15 gm Q15M PRN BUCCAL DECREASED GLUCOSE; Start 08/13/16 at 17: 30 Mupirocin (Bactroban) 1 applic BID TOP Last administered on 09/03/16 08:41; Admin Dose 1 APPLIC; Start 08/15/16 at 13:00 Atorvastatin Calcium (Lipitor) 10 mg QHS PO Last administered on 09/02/16 20: 24; Admin Dose 10 MG; Start 08/15/16 at 21:00 Metoprolol Tartrate (Lopressor) 50 mg BID PO Last administered on 09/03/16 08: 38; Admin Dose 50 MG; Start 08/15/16 at 15:00 Diagnostic Test (Pha) (Accucheck) 1 ea 02 XX Last administered on 09/02/16 02: 57; Admin Dose 1 EA; Start 08/16/16 at 02:00 Linagliptin (Tradjenta) 5 mg DAILY PO Last administered on 09/03/16 08:41; Admin Dose 5 MG; Start 08/15/16 at 18:30 Rifampin 600 mg 600 mg DAILY PO Last administered on 09/03/16 08:39; Admin Dose 600 MG; Start 08/16/16 at 16:30 Ceftriaxone Sodium (Rocephin) 50 ml @ 100 mls/hr Q24H IVPB Last administered on 09/02/16 16:05; Admin Dose 100 MLS/HR; Start 08/16/16 at 15:30 IV Flush (NS 10 ml) 10 ml PRN PRN IV IV PROTOCOL Last administered on 20:20; Admin Dose 10 ML; Start 08/16/16 at 15:30 Collagenase (Santyl) 1 applic DAILY TOP Last administered on 09/03/16 08:41; Admin Dose 1 APPLIC; Start 08/17/16 at 09:00 Pantoprazole (Protonix Tab) 40 mg DAILY@06 PO Last administered on 09/03/16 05 :25; Admin Dose 40 MG; Start 08/20/16 at 06:00 Diphenhydramine HCl (Benadryl) 25 mg Q6H PRN IV ITCHING Last administered on 10:00; Admin Dose 25 MG; Start 08/22/16 at 12:00 Fluconazole (Diflucan) 100 mg DAILY NGT Last administered on 09/03/16 08:37; Admin Dose 100 MG; Start 08/24/16 at 09:00 Loratadine (Claritin) 10 mg DAILY PO Last administered on 09/03/16 08:37; Admin Dose 10 MG; Start 08/23/16 at 14:30 Insulin Glargine (Lantus) 10 unit HS SC Last administered on 09/02/16 20:34; Admin Dose 10 UNIT; Start 08/23/16 at 21:00 Hydroxyzine HCl (Atarax) 25 mg Q6H PRN PO ITCHING Last administered on 13:24; Admin Dose 25 MG; Start 08/26/16 at 21:00 Gentamicin Sulfate 1 applic 1 applic DAILY TOP Last administered on 09/03/16 08:41; Admin Dose 1 APPLIC; Start 08/29/16 at 18:00 Vancomycin HCl/ Sodium Chloride (Vancocin/NS) 150 ml @ 75 mls/hr Q24H IVPB Last administered on 09/03/16 08:36; Admin Dose 75 MLS/HR; Start 09/01/16 at 09 :00 Diphenhydramine HCl (Benadryl) 25 mg BID IV Last administered on 09/03/16 08: 35; Admin Dose 25 MG; Start 09/01/16 at 11:00 Prednisone (Prednisone) 40 mg DAILY PO Last administered on 09/03/16 08:38; Admin Dose 40 MG; Start 09/03/16 at 09:00 Furosemide (Lasix) 40 mg DAILY IV Last administered on 09/03/16 08:35; Admin Dose 40 MG; Start 09/03/16 at 09:00 Insulin Human NPH (Humulin N) 10 unit AM SC Last administered on 09/03/16 08: 43; Admin Dose 10 UNIT; Start 09/03/16 at 09:00 Methimazole (Tapazole) 25 mg DAILY PO Last administered on 09/03/16 08:40; Admin Dose 25 MG; Start 09/03/16 at 09:00 ESPERANZA STRINGER MD Sep 03, 2016 09:02
--- NOTE | 2016-09-03 10:30 | CONS ---
Date/Time of Note Date/Time of Note DATE: 09/03/16 TIME: 10:27 Assessment/Plan Assessment/Plan Problems: (1) Hyperthyroidism Status: Chronic Comment: Ongoing treatment w/ methimazole 25 mg/d. Will follow and recheck TFT 's next week (2) Diabetes mellitus type 2 in obese Status: Chronic Comment: Good control. Intervention to prevent steroidogenic hyperglycemia yesterday w/ delayed injection of regular insulin was effective w/o hypoglycemia. Pt. now to be on NPH 10 qam w/ prednisone doses. Will follow. Consultation Date/Type/Reason Admit Date/Time Aug 14, 2016 at 01:54 Initial Consult Date 08/15/16 Type of Consultation: Endocrinology Reason for Consultation Thyrotoxicosis Referring Provider: SÁNCHEZ WOMACK MD 24 HR Interval Summary Subjective hx not possible: pt non-verbal (sleeping) Exam/Review of Systems Vital Signs Vitals VS - Last 72 Hours, by Label Date Time Temp Pulse Resp B/P Pulse Ox O2 Delivery O2 Flow Rate FiO2 09/03/16 07:55 98.4 104 18 134/63 96 09/02/16 23:05 2.0 09/02/16 20:20 2.0 09/02/16 19:24 98.2 109 18 156/75 98 09/02/16 15:16 2.0 09/02/16 09:30 2.0 09/02/16 08:25 97.4 97 18 167/81 99 09/01/16 23:31 2.0 09/01/16 21:21 2.0 09/01/16 20:00 97.4 113 20 120/81 98 09/01/16 16:32 2.0 09/01/16 09:15 2.0 09/01/16 08:27 98.1 103 18 127/69 94 Nasal Cannula 5.0 09/01/16 05:55 2.0 08/31/16 20:00 2.0 08/31/16 19:42 97.7 103 18 120/81 100 08/31/16 19:00 2.0 Vital Signs Date Time Temp Pulse Resp B/P Pulse Ox O2 Delivery O2 Flow Rate FiO2 09/03/16 07:55 98.4 104 18 134/63 96 09/02/16 23:05 2.0 09/01/16 08:27 Nasal Cannula Intake and Output 09/02/16 09/02/16 09/03/16 15:00 23:00 07:00 Intake Total 450 ml 420 ml Output Total 800 ml Balance 450 ml -380 ml Exam Constitutional: well developed, No alert (sleeping) Respiratory: clear to auscultation, normal air movement Cardiovascular: irregular rhythm (and slightly rapid, about 100 bpm), No edema, No murmurs/extra sounds, No regular rate and rhythm, No rub Gastrointestinal: bowel sounds, nl liver, spleen, non-tender, soft, No mass, No rebound or guarding Musculoskeletal: nl extremities to inspection Extremities: No clubbing, No cyanosis, No edema Neurological: other (asleep) Additional Comments Bedside Glucose - 72 Hours Test 08/31/16 12:11 08/31/16 17:17 08/31/16 21:04 09/01/16 02:29 Bedside Glucose 219mg/dL (70-220) 218mg/dL (70-220) 205mg/dL (70-220) 197mg/dL (70-220) Test 09/01/16 07:53 09/01/16 12:12 09/01/16 17:45 09/01/16 21:02 Bedside Glucose 160mg/dL (70-220) 127mg/dL (70-220) 191mg/dL (70-220) 230mg/dL (70-220) H Test 09/02/16 02:56 09/02/16 07:47 09/02/16 11:04 09/02/16 12:07 Bedside Glucose 81mg/dL (70-220) 77mg/dL (70-220) 169mg/dL (70-220) 158mg/dL (70-220) Test 09/02/16 17:08 09/02/16 20:29 09/03/16 08:31 Bedside Glucose 119mg/dL (70-220) 136mg/dL (70-220) 94mg/dL (70-220) Results Result Diagram: 09/03/16 0530 09/03/16 0530 Results 24 hrs Laboratory Tests Test 09/02/16 11:04 09/02/16 12:07 09/02/16 17:08 09/02/16 20:29 Bedside Glucose 169 158 119 136 Test 09/03/16 05:30 09/03/16 08:31 Anion Gap 6 L Basophils # 0.1 Basophils % 0.9 Blood Morphology Comment Blood Urea Nitrogen 13 Calcium Level 7.3 L Carbon Dioxide Level 40 H Chloride Level 97 Creatinine 0.71 Eosinophils # 0.4 Eosinophils % 6.0 Glucose Level 63 L Hematocrit 28.1 L Hemoglobin 9.5 L Lymphocytes # 2.5 Lymphocytes % 35.2 Magnesium Level 1.5 L Mean Corpuscular Hemoglobin 29.3 Mean Corpuscular Hemoglobin Concent 33.9 Mean Corpuscular Volume 86.5 Mean Platelet Volume 8.9 Monocytes # 0.6 Monocytes % 8.6 Neutrophils # 3.5 Neutrophils % 49.3 Nucleated Red Blood Cells # 0.0 Nucleated Red Blood Cells % 0.0 Phosphorus Level 2.9 Platelet Count 188 Potassium Level 3.1 L Red Blood Count 3.26 L Red Cell Distribution Width 16.7 H Sodium Level 140 White Blood Count 7.2 # Bedside Glucose 94 Medications Medications Current Medications Lorazepam (Ativan) 0.5 mg Q6H PRN IV ANXIETY Last administered on 08/31/16 21: 56; Admin Dose 0.5 MG; Start 08/13/16 at 16:00 Ondansetron HCl (Zofran Inj) 4 mg Q6H PRN IV NAUSEA AND/OR VOMITING Last administered on 08/27/16 03:37; Admin Dose 4 MG; Start 08/13/16 at 16:00 Nitroglycerin (Nitroglycerin (Sl Tab) 0.4 Mg) 1 tab Q5M PRN SL CHEST PAIN Last administered on 08/21/16 23:04; Admin Dose 1 TAB; Start 08/13/16 at 16:00 Acetaminophen (Tylenol Supp) 650 mg Q6H PRN [place] PAIN LEVEL 1-3 OR FEVER; Start 08/13/16 at 16:00 Morphine Sulfate (morphine) 2 mg Q4H PRN IV PAIN LEVEL 7-10 Last administered on 09/01/16 23:12; Admin Dose 2 MG; Start 08/13/16 at 16:00 Bisacodyl (Dulcolax) 5 mg DAILY PRN PO CONSTIPATION Last administered on 21:51; Admin Dose 5 MG; Start 08/13/16 at 16:00 Miscellaneous Information 1 ea NOTE XX ; Start 08/13/16 at 17:30 Glucose (Glutose) 15 gm Q15M PRN PO DECREASED GLUCOSE; Start 08/13/16 at 17:30 Glucose (Glutose) 22.5 gm Q15M PRN PO DECREASED GLUCOSE; Start 08/13/16 at 17:30 Dextrose (D50w Syringe) 25 ml Q15M PRN IV DECREASED GLUCOSE Last administered on 08/29/16 08:13; Admin Dose 25 ML; Start 08/13/16 at 17:30 Dextrose (D50w Syringe) 50 ml Q15M PRN IV DECREASED GLUCOSE Last administered on 08/23/16 06:16; Admin Dose 50 ML; Start 08/13/16 at 17:30 Glucagon (Glucagen) 1 mg Q15M PRN IM DECREASED GLUCOSE; Start 08/13/16 at 17:30 Glucose (Glutose) 15 gm Q15M PRN BUCCAL DECREASED GLUCOSE; Start 08/13/16 at 17: 30 Mupirocin (Bactroban) 1 applic BID TOP Last administered on 09/03/16 08:41; Admin Dose 1 APPLIC; Start 08/15/16 at 13:00 Atorvastatin Calcium (Lipitor) 10 mg QHS PO Last administered on 09/02/16 20: 24; Admin Dose 10 MG; Start 08/15/16 at 21:00 Metoprolol Tartrate (Lopressor) 50 mg BID PO Last administered on 09/03/16 08: 38; Admin Dose 50 MG; Start 08/15/16 at 15:00 Diagnostic Test (Pha) (Accucheck) 1 ea 02 XX Last administered on 09/02/16 02: 57; Admin Dose 1 EA; Start 08/16/16 at 02:00 Linagliptin (Tradjenta) 5 mg DAILY PO Last administered on 09/03/16 08:41; Admin Dose 5 MG; Start 08/15/16 at 18:30 Rifampin 600 mg 600 mg DAILY PO Last administered on 09/03/16 08:39; Admin Dose 600 MG; Start 08/16/16 at 16:30 Ceftriaxone Sodium (Rocephin) 50 ml @ 100 mls/hr Q24H IVPB Last administered on 09/02/16 16:05; Admin Dose 100 MLS/HR; Start 08/16/16 at 15:30 IV Flush (NS 10 ml) 10 ml PRN PRN IV IV PROTOCOL Last administered on 20:20; Admin Dose 10 ML; Start 08/16/16 at 15:30 Collagenase (Santyl) 1 applic DAILY TOP Last administered on 09/03/16 08:41; Admin Dose 1 APPLIC; Start 08/17/16 at 09:00 Pantoprazole (Protonix Tab) 40 mg DAILY@06 PO Last administered on 09/03/16 05 :25; Admin Dose 40 MG; Start 08/20/16 at 06:00 Diphenhydramine HCl (Benadryl) 25 mg Q6H PRN IV ITCHING Last administered on 10:00; Admin Dose 25 MG; Start 08/22/16 at 12:00 Fluconazole (Diflucan) 100 mg DAILY NGT Last administered on 09/03/16 08:37; Admin Dose 100 MG; Start 08/24/16 at 09:00 Loratadine (Claritin) 10 mg DAILY PO Last administered on 09/03/16 08:37; Admin Dose 10 MG; Start 08/23/16 at 14:30 Insulin Glargine (Lantus) 10 unit HS SC Last administered on 09/02/16 20:34; Admin Dose 10 UNIT; Start 08/23/16 at 21:00 Hydroxyzine HCl (Atarax) 25 mg Q6H PRN PO ITCHING Last administered on 13:24; Admin Dose 25 MG; Start 08/26/16 at 21:00 Gentamicin Sulfate 1 applic 1 applic DAILY TOP Last administered on 09/03/16 08:41; Admin Dose 1 APPLIC; Start 08/29/16 at 18:00 Vancomycin HCl/ Sodium Chloride (Vancocin/NS) 150 ml @ 75 mls/hr Q24H IVPB Last administered on 09/03/16 08:36; Admin Dose 75 MLS/HR; Start 09/01/16 at 09 :00 Diphenhydramine HCl (Benadryl) 25 mg BID IV Last administered on 09/03/16 08: 35; Admin Dose 25 MG; Start 09/01/16 at 11:00 Prednisone (Prednisone) 40 mg DAILY PO Last administered on 09/03/16 08:38; Admin Dose 40 MG; Start 09/03/16 at 09:00 Furosemide (Lasix) 40 mg DAILY IV Last administered on 09/03/16 08:35; Admin Dose 40 MG; Start 09/03/16 at 09:00 Insulin Human NPH (Humulin N) 10 unit AM SC Last administered on 09/03/16 08: 43; Admin Dose 10 UNIT; Start 09/03/16 at 09:00 Methimazole (Tapazole) 25 mg DAILY PO Last administered on 09/03/16 08:40; Admin Dose 25 MG; Start 09/03/16 at 09:00 JARRET SIGALA MD Sep 03, 2016 10:30
[2016-09-03] MEDS ORDERED: MAGNESIUM SULFATE 2 GM/50 ML 50 ML IVPB ONE (12:30)
[2016-09-03] MEDS ORDERED: POTASSIUM CHLORIDE 250 ML IVPB ONE (12:30)
--- NOTE | 2016-09-03 12:37 | PN ---
Date/Time of Note Date/Time of Note DATE: 09/03/16 TIME: 12:35 Assessment/Plan VTE Prophylaxis VTE Prophylaxis Intervention: LMWH Lines/Catheters IV [facility] PICC Line Central line still needed: Yes Urinary Cath still in place: Yes Reason Cath still needed: urinary retention Assessment/Plan Chief Complaint/Hosp Course Assessment/Plan Chief Complaint/Hosp Course 1. Upper gastrointestinal bleeding. The patient was evaluated by gastroenterology. Esophagogastroduodenoscopy revealed a Faye-Johnson tear, chronic gastritis, and nodular duodenitis. Continue proton pump inhibitors. 2. Atrial fibrillation with rapid ventricular response. Currently, the rate is controlled. No anticoagulation because of underlying gastrointestinal bleed. Cardiology following. Stable from cardiac standpoint 3. Sepsis with underlying MRSA bacteremia, infected pressure ulcers, and urinary tract infection. Continue antibiotics. Infectious disease is on the case. We will discuss with infectious disease regarding length of antibiotic treatment 4. Infected B/L heel pressure ulcers. Seen and evaluated by podiatry. S/P local debridement of the left heel ulcer on 08/20/2016 with repeat debridement on 08/29/2016. 5. Essential hypertension. Continue antihypertensives. 6. Peripheral vascular disease. Monitor for acute changes. Anticoagulation on hold because of anemia. 7. Dyslipidemia. Continue statins. Fasting lipid panel showing low HDL and low total cholesterol. 8. Type 2 diabetes mellitus. Hemoglobin A1c 9.8. Continue sliding scale insulin. 9. Left upper extremity edema. Largely resolved. Left upper extremity venous Doppler study negative for any deep venous thrombosis. Continue elevation of left upper extremity. 10. Multiple pressure ulcers. Continue local wound care. Wound care consult. 11. Hyperthyroidism. The patient on methimazole. 12. MRSA colonization of the nares. Continue Bactroban. 13. Generalized maculopapular rashes with associated pruritus. Switched to p.o. steroids 14. Diastolic heart failure. Acute onset. Switch to p.o. potassium IV 1 replacement, replace magnesium 15. Fluid, electrolytes and nutrition. Carbohydrate controlled, low- cholesterol diet. Replace potassium continue Lasix 16. DVT prophylaxis with serial sequential compression devices. No anticoagulation because of underlying anemia. 17. Gastrointestinal prophylaxis with proton pump inhibitors. Plan If electrolytes are stable tomorrow [facility] Problems: Subjective 24 Hr Interval Summary Free Text/Dictation Patient remains comfortable no new events Somewhat confused but no respiratory distress no chest pain Exam/Review of Systems Vital Signs Vitals Vital Signs Date Time Temp Pulse Resp B/P Pulse Ox O2 Delivery O2 Flow Rate FiO2 09/03/16 08:00 Nasal Cannula 2.0 09/03/16 07:55 98.4 104 18 134/63 96 Intake and Output 09/02/16 09/02/16 09/03/16 15:00 23:00 07:00 Intake Total 450 ml 420 ml Output Total 800 ml Balance 450 ml -380 ml Exam GENERAL: Elderly lady awake alert oriented in bed comfortable at rest VITAL SIGNS: per chart NECK: Supple. No JVD or lymphadenopathy. CARDIAC EXAM: S1, S2. No added sounds or murmurs. CHEST: clear bilaterally, No added sounds, rales or wheezes ABDOMEN: Soft, nontender. No guarding or rebound. EXTREMITIES: No cyanosis, clubbing or edema +1 NEUROLOGIC: Generalized weakness. No focal deficits. Lundy catheter in place Results Result Diagram: 09/03/16 0530 09/03/16 0530 Results 24 hrs Laboratory Tests Test 09/02/16 17:08 09/02/16 20:29 09/03/16 05:30 09/03/16 08:31 Bedside Glucose 119 136 94 Anion Gap 6 L Basophils # 0.1 Basophils % 0.9 Blood Morphology Comment Blood Urea Nitrogen 13 Calcium Level 7.3 L Carbon Dioxide Level 40 H Chloride Level 97 Creatinine 0.71 Eosinophils # 0.4 Eosinophils % 6.0 Glucose Level 63 L Hematocrit 28.1 L Hemoglobin 9.5 L Lymphocytes # 2.5 Lymphocytes % 35.2 Magnesium Level 1.5 L Mean Corpuscular Hemoglobin 29.3 Mean Corpuscular Hemoglobin Concent 33.9 Mean Corpuscular Volume 86.5 Mean Platelet Volume 8.9 Monocytes # 0.6 Monocytes % 8.6 Neutrophils # 3.5 Neutrophils % 49.3 Nucleated Red Blood Cells # 0.0 Nucleated Red Blood Cells % 0.0 Phosphorus Level 2.9 Platelet Count 188 Potassium Level 3.1 L Red Blood Count 3.26 L Red Cell Distribution Width 16.7 H Sodium Level 140 White Blood Count 7.2 # Test 09/03/16 12:03 Bedside Glucose 150 Medications Medications Current Medications Lorazepam (Ativan) 0.5 mg Q6H PRN IV ANXIETY Last administered on 08/31/16t 21: 56; Admin Dose 0.5 MG; Start 08/13/16 at 16:00 Ondansetron HCl (Zofran Inj) 4 mg Q6H PRN IV NAUSEA AND/OR VOMITING Last administered on 08/27/16 03:37; Admin Dose 4 MG; Start 08/13/16 at 16:00 Nitroglycerin (Nitroglycerin (Sl Tab) 0.4 Mg) 1 tab Q5M PRN SL CHEST PAIN Last administered on 08/21/16 23:04; Admin Dose 1 TAB; Start 08/13/16 at 16:00 Acetaminophen (Tylenol Supp) 650 mg Q6H PRN [place] PAIN LEVEL 1-3 OR FEVER; Start 08/13/16 at 16:00 Morphine Sulfate (morphine) 2 mg Q4H PRN IV PAIN LEVEL 7-10 Last administered on 09/01/16 23:12; Admin Dose 2 MG; Start 08/13/16 at 16:00 Bisacodyl (Dulcolax) 5 mg DAILY PRN PO CONSTIPATION Last administered on 21:51; Admin Dose 5 MG; Start 08/13/16 at 16:00 Miscellaneous Information 1 ea NOTE XX ; Start 08/13/16 at 17:30 Glucose (Glutose) 15 gm Q15M PRN PO DECREASED GLUCOSE; Start 08/13/16 at 17:30 Glucose (Glutose) 22.5 gm Q15M PRN PO DECREASED GLUCOSE; Start 08/13/16 at 17:30 Dextrose (D50w Syringe) 25 ml Q15M PRN IV DECREASED GLUCOSE Last administered on 08/29/16 08:13; Admin Dose 25 ML; Start 08/13/16 at 17:30 Dextrose (D50w Syringe) 50 ml Q15M PRN IV DECREASED GLUCOSE Last administered on 08/23/16 06:16; Admin Dose 50 ML; Start 08/13/16 at 17:30 Glucagon (Glucagen) 1 mg Q15M PRN IM DECREASED GLUCOSE; Start 08/13/16 at 17:30 Glucose (Glutose) 15 gm Q15M PRN BUCCAL DECREASED GLUCOSE; Start 08/13/16 at 17: 30 Mupirocin (Bactroban) 1 applic BID TOP Last administered on 09/03/16 08:41; Admin Dose 1 APPLIC; Start 08/15/16 at 13:00 Atorvastatin Calcium (Lipitor) 10 mg QHS PO Last administered on 09/02/16 20: 24; Admin Dose 10 MG; Start 08/15/16 at 21:00 Metoprolol Tartrate (Lopressor) 50 mg BID PO Last administered on 09/03/16 08: 38; Admin Dose 50 MG; Start 08/15/16 at 15:00 Diagnostic Test (Pha) (Accucheck) 1 ea 02 XX Last administered on 09/02/16 02: 57; Admin Dose 1 EA; Start 08/16/16 at 02:00 Linagliptin (Tradjenta) 5 mg DAILY PO Last administered on 09/03/16 08:41; Admin Dose 5 MG; Start 08/15/16 at 18:30 Rifampin 600 mg 600 mg DAILY PO Last administered on 09/03/16 08:39; Admin Dose 600 MG; Start 08/16/16 at 16:30 Ceftriaxone Sodium (Rocephin) 50 ml @ 100 mls/hr Q24H IVPB Last administered on 09/02/16 16:05; Admin Dose 100 MLS/HR; Start 08/16/16 at 15:30 IV Flush (NS 10 ml) 10 ml PRN PRN IV IV PROTOCOL Last administered on 20:20; Admin Dose 10 ML; Start 08/16/16 at 15:30 Collagenase (Santyl) 1 applic DAILY TOP Last administered on 09/03/16 08:41; Admin Dose 1 APPLIC; Start 08/17/16 at 09:00 Pantoprazole (Protonix Tab) 40 mg DAILY@06 PO Last administered on 09/03/16 05 :25; Admin Dose 40 MG; Start 08/20/16 at 06:00 Diphenhydramine HCl (Benadryl) 25 mg Q6H PRN IV ITCHING Last administered on 10:00; Admin Dose 25 MG; Start 08/22/16 at 12:00 Fluconazole (Diflucan) 100 mg DAILY NGT Last administered on 09/03/16 08:37; Admin Dose 100 MG; Start 08/24/16 at 09:00 Loratadine (Claritin) 10 mg DAILY PO Last administered on 09/03/16 08:37; Admin Dose 10 MG; Start 08/23/16 at 14:30 Insulin Glargine (Lantus) 10 unit HS SC Last administered on 09/02/16 20:34; Admin Dose 10 UNIT; Start 08/23/16 at 21:00 Hydroxyzine HCl (Atarax) 25 mg Q6H PRN PO ITCHING Last administered on 13:24; Admin Dose 25 MG; Start 08/26/16 at 21:00 Gentamicin Sulfate 1 applic 1 applic DAILY TOP Last administered on 09/03/16 08:41; Admin Dose 1 APPLIC; Start 08/29/16 at 18:00 Vancomycin HCl/ Sodium Chloride (Vancocin/NS) 150 ml @ 75 mls/hr Q24H IVPB Last administered on 09/03/16 08:36; Admin Dose 75 MLS/HR; Start 09/01/16 at 09 :00 Diphenhydramine HCl (Benadryl) 25 mg BID IV Last administered on 09/03/16 08: 35; Admin Dose 25 MG; Start 09/01/16 at 11:00 Prednisone (Prednisone) 40 mg DAILY PO Last administered on 09/03/16 08:38; Admin Dose 40 MG; Start 09/03/16 at 09:00 Furosemide (Lasix) 40 mg DAILY IV Last administered on 09/03/16 08:35; Admin Dose 40 MG; Start 09/03/16 at 09:00 Insulin Human NPH (Humulin N) 10 unit AM SC Last administered on 09/03/16 08: 43; Admin Dose 10 UNIT; Start 09/03/16 at 09:00 Methimazole (Tapazole) 25 mg DAILY PO Last administered on 09/03/16 08:40; Admin Dose 25 MG; Start 09/03/16 at 09:00 J[facility]Y MD, [facility] Sep 03, 2016 12:37
--- NOTE | 2016-09-03 14:01 | RADRPT ---
Vent Rate: 121 bpm RR Interval: 0 msec NC Interval: 0 msec QRS Duration: 78 msec QT Interval: 326 msec QTC Interval: 462 msec P-R-T [place]: 0 - -16 - 19 degrees Atrial fibrillation with rapid ventricular response Low voltage QRS Abnormal ECG Electronically Signed By: Segundo Marie [id number]
[2016-09-03] MEDS: CEFTRIAXONE 1 GM/50 ML (PMX) 50 ML IVPB SCH (15:42)
--- NOTE | 2016-09-03 16:55 | CONS ---
Date/Time of Note Date/Time of Note DATE: 09/03/16 TIME: 16:51 Assessment/Plan Assessment/Plan Chief Complaint/Hosp Course ID PROGRESS NOTE TOTAL ABX DAY #21 => Vanco IV, Ceftriaxone, Rifampin, Diflucan 24H INTERVAL SUMMARY => POD #3 => s/p wound debridement * No fevers, VSS, NAD, no complaints, left sided hemiplegia * CXR last night bilateral interstitial edema, Pneumonitis -> O2 via NC 2L * Renal fx stable, WBC normalized PHYSICAL EXAMINATION: GENERAL: 81 yo F HEENT: Unremarkable = eyes remain closed NECK: Supple, trachea midline. CHEST: Rise symmetrical without dyspnea HEART: RRR ABDOMEN: Soft EXTREMITIES: Warm -> BUEXT w/edema L>R, BLEXT DSG C/D/I ID ASSESSMENT: 81 yo F w.PMHx CVA w/left sided hemiparesis admit with: 1. s/p Sepsis w/ Methicillin-resistant Staphylococcus aureus bacteremia = RESOLVED * Repeat BCx(-) * Leukocytosis = resolved * No fevers 2. s/p Polymicrobial urinary tract infection with urine culture growing MRSA and E. coli.= RESOLVED 3. Probable neurogenic bladder 4. Non-healing BLEXT Bilateral heel cellulitis with open wounds, right more than left with right foot wound culture growing MRSA/Proteus Miribilis/ACBA/ YEAST => POD #3 => s/p wound debridement * X-RAY: Right foot reveals a calcaneal deformity, likely from deformity or trauma. Osteopenia, without evidence of osteomyelitis. * X-RAY: Left foot without fracture or dislocation. Osteopenia, without focal blastic or lytic lesion. 5. Peripheral vascular disease 6. HTN, HLD, Atherosclerosis 7. 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 Atrial fibrillation w/hx of RVR 9. Anemia, status post hematemesis and EGD that revealed Faye-Johnson tear and chronic gastritis. 10. GERD 11. Hyperthyroidism 12. LUEXT Edema 13. Pneumonitis => HCAP superimposed on interstitial edema/pulm edema (+)MRSA Nares->Bactroban ABX ALLERGY: PCN, SULFA INVASIVES: *PIV CURRENT ABX: #21 => Vanco IV, Ceftriaxone, Rifampin, Diflucan ID RECOMMENDATIONS: * CONTINUE Current ABX & wound care * Further recs APC . . Problems: Consultation Date/Type/Reason Admit Date/Time Aug 14, 2016 at 01:54 Initial Consult Date 08/15/16 Type of Consultation: ID Referring Provider: SÁNCHEZ WOMACK MD Exam/Review of Systems Vital Signs Vitals Vital Signs Date Time Temp Pulse Resp B/P Pulse Ox O2 Delivery O2 Flow Rate FiO2 09/03/16 12:33 2.0 09/03/16 08:00 Nasal Cannula 09/03/16 07:55 98.4 104 18 134/63 96 Intake and Output 09/02/16 09/02/16 09/03/16 15:00 23:00 07:00 Intake Total 450 ml 420 ml Output Total 800 ml Balance 450 ml -380 ml Results Result Diagram: 09/03/16 0530 09/03/16 0530 Results 24 hrs Laboratory Tests Test 09/02/16 17:08 09/02/16 20:29 09/03/16 05:30 09/03/16 08:31 Bedside Glucose 119 136 94 Anion Gap 6 L Basophils # 0.1 Basophils % 0.9 Blood Morphology Comment Blood Urea Nitrogen 13 Calcium Level 7.3 L Carbon Dioxide Level 40 H Chloride Level 97 Creatinine 0.71 Eosinophils # 0.4 Eosinophils % 6.0 Glucose Level 63 L Hematocrit 28.1 L Hemoglobin 9.5 L Lymphocytes # 2.5 Lymphocytes % 35.2 Magnesium Level 1.5 L Mean Corpuscular Hemoglobin 29.3 Mean Corpuscular Hemoglobin Concent 33.9 Mean Corpuscular Volume 86.5 Mean Platelet Volume 8.9 Monocytes # 0.6 Monocytes % 8.6 Neutrophils # 3.5 Neutrophils % 49.3 Nucleated Red Blood Cells # 0.0 Nucleated Red Blood Cells % 0.0 Phosphorus Level 2.9 Platelet Count 188 Potassium Level 3.1 L Red Blood Count 3.26 L Red Cell Distribution Width 16.7 H Sodium Level 140 White Blood Count 7.2 # Test 09/03/16 12:03 Bedside Glucose 150 Medications Medications Current Medications Lorazepam (Ativan) 0.5 mg Q6H PRN IV ANXIETY Last administered on 08/31/16 21: 56; Admin Dose 0.5 MG; Start 08/13/16 at 16:00 Ondansetron HCl (Zofran Inj) 4 mg Q6H PRN IV NAUSEA AND/OR VOMITING Last administered on 08/27/16 03:37; Admin Dose 4 MG; Start 08/13/16 at 16:00 Nitroglycerin (Nitroglycerin (Sl Tab) 0.4 Mg) 1 tab Q5M PRN SL CHEST PAIN Last administered on 08/21/16 23:04; Admin Dose 1 TAB; Start 08/13/16 at 16:00 Acetaminophen (Tylenol Supp) 650 mg Q6H PRN [place] PAIN LEVEL 1-3 OR FEVER; Start 08/13/16 at 16:00 Morphine Sulfate (morphine) 2 mg Q4H PRN IV PAIN LEVEL 7-10 Last administered on 09/01/16 23:12; Admin Dose 2 MG; Start 08/13/16 at 16:00 Bisacodyl (Dulcolax) 5 mg DAILY PRN PO CONSTIPATION Last administered on 21:51; Admin Dose 5 MG; Start 08/13/16 at 16:00 Miscellaneous Information 1 ea NOTE XX ; Start 08/13/16 at 17:30 Glucose (Glutose) 15 gm Q15M PRN PO DECREASED GLUCOSE; Start 08/13/16 at 17:30 Glucose (Glutose) 22.5 gm Q15M PRN PO DECREASED GLUCOSE; Start 08/13/16 at 17:30 Dextrose (D50w Syringe) 25 ml Q15M PRN IV DECREASED GLUCOSE Last administered on 08/29/16 08:13; Admin Dose 25 ML; Start 08/13/16 at 17:30 Dextrose (D50w Syringe) 50 ml Q15M PRN IV DECREASED GLUCOSE Last administered on 08/23/16 06:16; Admin Dose 50 ML; Start 08/13/16 at 17:30 Glucagon (Glucagen) 1 mg Q15M PRN IM DECREASED GLUCOSE; Start 08/13/16 at 17:30 Glucose (Glutose) 15 gm Q15M PRN BUCCAL DECREASED GLUCOSE; Start 08/13/16 at 17: 30 Mupirocin (Bactroban) 1 applic BID TOP Last administered on 09/03/16 08:41; Admin Dose 1 APPLIC; Start 08/15/16 at 13:00 Atorvastatin Calcium (Lipitor) 10 mg QHS PO Last administered on 09/02/16 20: 24; Admin Dose 10 MG; Start 08/15/16 at 21:00 Metoprolol Tartrate (Lopressor) 50 mg BID PO Last administered on 09/03/16 08: 38; Admin Dose 50 MG; Start 08/15/16 at 15:00 Diagnostic Test (Pha) (Accucheck) 1 ea 02 XX Last administered on 09/02/16 02: 57; Admin Dose 1 EA; Start 08/16/16 at 02:00 Linagliptin (Tradjenta) 5 mg DAILY PO Last administered on 09/03/16 08:41; Admin Dose 5 MG; Start 08/15/16 at 18:30 Rifampin 600 mg 600 mg DAILY PO Last administered on 09/03/16 08:39; Admin Dose 600 MG; Start 08/16/16 at 16:30 Ceftriaxone Sodium (Rocephin) 50 ml @ 100 mls/hr Q24H IVPB Last administered on 09/03/16 15:42; Admin Dose 100 MLS/HR; Start 08/16/16 at 15:30 IV Flush (NS 10 ml) 10 ml PRN PRN IV IV PROTOCOL Last administered on 20:20; Admin Dose 10 ML; Start 08/16/16 at 15:30 Collagenase (Santyl) 1 applic DAILY TOP Last administered on 09/03/16 08:41; Admin Dose 1 APPLIC; Start 08/17/16 at 09:00 Pantoprazole (Protonix Tab) 40 mg DAILY@06 PO Last administered on 09/03/16 05 :25; Admin Dose 40 MG; Start 08/20/16 at 06:00 Diphenhydramine HCl (Benadryl) 25 mg Q6H PRN IV ITCHING Last administered on 10:00; Admin Dose 25 MG; Start 08/22/16 at 12:00 Fluconazole (Diflucan) 100 mg DAILY NGT Last administered on 09/03/16 08:37; Admin Dose 100 MG; Start 08/24/16 at 09:00 Loratadine (Claritin) 10 mg DAILY PO Last administered on 09/03/16 08:37; Admin Dose 10 MG; Start 08/23/16 at 14:30 Insulin Glargine (Lantus) 10 unit HS SC Last administered on 09/02/16 20:34; Admin Dose 10 UNIT; Start 08/23/16 at 21:00 Hydroxyzine HCl (Atarax) 25 mg Q6H PRN PO ITCHING Last administered on 13:24; Admin Dose 25 MG; Start 08/26/16 at 21:00 Gentamicin Sulfate 1 applic 1 applic DAILY TOP Last administered on 09/03/16 08:41; Admin Dose 1 APPLIC; Start 08/29/16 at 18:00 Vancomycin HCl/ Sodium Chloride (Vancocin/NS) 150 ml @ 75 mls/hr Q24H IVPB Last administered on 09/03/16 08:36; Admin Dose 75 MLS/HR; Start 09/01/16 at 09 :00 Diphenhydramine HCl (Benadryl) 25 mg BID IV Last administered on 09/03/16 08: 35; Admin Dose 25 MG; Start 09/01/16 at 11:00 Prednisone (Prednisone) 40 mg DAILY PO Last administered on 09/03/16 08:38; Admin Dose 40 MG; Start 09/03/16 at 09:00 Furosemide (Lasix) 40 mg DAILY IV Last administered on 09/03/16 08:35; Admin Dose 40 MG; Start 09/03/16 at 09:00 Insulin Human NPH (Humulin N) 10 unit AM SC Last administered on 09/03/16 08: 43; Admin Dose 10 UNIT; Start 09/03/16 at 09:00 Methimazole (Tapazole) 25 mg DAILY PO Last administered on 09/03/16 08:40; Admin Dose 25 MG; Start 09/03/16 at 09:00 Miscellaneous Information (*Rx Drug Level Order Reminder*) VANCOMYCIN TROUGH AT 0800 ONCE ONCE XX ; Start 09/04/16 at 08:00; Stop 09/04/16 at 08:01 ALEXANDRA CHAVEZ NP Sep 03, 2016 16:55
--- NOTE | 2016-09-03 17:27 | CONS ---
DATE OF ADMISSION: 08/14/2016 DATE OF CONSULTATION: 09/03/2016 SUBJECTIVE FINDINGS: The patient being followed for bilateral foot ulceration. The patient had a d ebridement and recommended a trial of gentamicin due to the color of drainage and urine smelling. T his patient has had wound culture positive for MRSA and gram-negative rods and yeast. Currently on vancomycin, rifampin, Rocephin and Diflucan. OBJECTIVE FINDINGS VITAL SIGNS: Temperature 98.4, pulse is 104, respiratory 18, blood pressure 134/63, pulse oximetry is 96 per 2 liters nasal cannula. PHYSICAL EXAMINATION: GENERAL: The patient awake, fragile. HEENT: Head is normocephalic, atraumatic. Trachea is midline. CHEST: Regular respiration. EXTREMITIES: She has mild lower extremity edema. Ulceration posterior heel bilaterally. krystian suring 3 x 4 cm with improved in color and texture. There is no malodor, persistent yellowish green discharge. On the right, patient has ulceration posterior heel of 4.7 cm with improved granulation . There was nonviable adipose tissue, decreased and malodor. There was stable eschar to the right foot, medial first metatarsophalangeal joint of unstageable depth. LABORATORIES: WBC 7.2, hemoglobin 9.5, hematocrit 28.1, platelets 188. Sodium 140, potassium 3.1, chloride 97, CO2 of 40, BUN 13, creatinine 0.71, glucose 63. ASSESSMENT: 1. Decubitus ulcerations bilateral heel, stage III. 2. Sepsis. 3. Methicillin-resistant Staphylococcus aureus bacteremia. 4. Methicillin-resistant Staphylococcus aureus E.coli urinary tract infection. 5. Anemia. 6. Atrial fibrillation. 7. History of cerebrovascular accident. 8. Thyrotoxicosis. PLAN: Wound is improved. Skin care, wound care performed. Recommend monitoring of cultures from b ilateral feet, applying subsequent debridement. The patient using appropriate mattress, continue d ecubitus precautions and daily cleansing and wound care. Dictated By: ANNI BUSTAMANTE/TIN Conf#: [id number] DID#: [id number]
[2016-09-03 20:08] VITALS: BP 160/71; RESP 16
[2016-09-03] MEDS: ATORVASTATIN 10 MG TAB PO SCH (20:40)
[2016-09-03] MEDS: INSULIN GLARGINE [LANtus] 3 ML PEN SC SCH (20:46)
[2016-09-04] MEDS: ACCUCHECK XX SCH (02:00)
[2016-09-04] MEDS ORDERED: ALTEPLASE (CATHFLO) 2 MG INJ CATHETER PRN (05:30)
[2016-09-04] MEDS: PANTOPRAZOLE (EC) 40 MG TAB PO SCH (06:08)
[2016-09-04 08:05] VITALS: BP 128/78; RESP 16
[2016-09-04] MEDS: INSULIN ASPART [NOVOLOG] 3 ML PEN SC SCH ×4 (08:19→20:54)
[2016-09-04 08:41] LABS: BASOPHILS % 0.4 % (0.0-2.0); EOSINOPHILS # 0.2 10^3/ul (0.0-0.5); EOSINOPHILS % 2.4 % (0.0-7.0); HEMATOCRIT 30.5 % (37.0-47.0); HEMOGLOBIN 10.3 g/dl (12.0-16.0); LYMPHOCYTES # 2.2 10^3/ul (0.8-2.9); LYMPHOCYTES % 32.2 % (15.0-51.0); MEAN CORPUSCULAR HGB CONC 33.7 g/dl (32.0-37.0); MEAN PLATELET VOLUME 8.8 fl (7.4-10.4); MONOCYTE # 0.6 10^3/ul (0.3-0.9); NEUTROPHIL # 3.9 10^3/ul (1.6-7.5); PLATELET COUNT 199 10^3/UL (140-440); RED BLOOD COUNT 3.55 10^6/ul (4.20-5.40); RED CELL DISTRIBUTION WIDTH 17.6 % (11.5-14.5)
[2016-09-04] MEDS: FUROSEMIDE 40 MG INJ IV SCH (08:44)
[2016-09-04 08:45] LABS: CONDITION 1; LH ANALYZER COMMENTS 1
[2016-09-04] MEDS: LORATADINE 10 MG TAB PO SCH (08:45)
[2016-09-04] MEDS: DIPHENHYDRAMINE 50 MG INJ IV SCH ×2 (08:45→20:49)
[2016-09-04] MEDS: predniSONE 20 MG TAB PO SCH (08:45)
[2016-09-04] MEDS: METHIMAZOLE 5 MG TAB PO SCH (08:45)
[2016-09-04] MEDS: METOPROLOL 50 MG TAB PO SCH ×2 (08:46→20:48)
[2016-09-04] MEDS: RIFAMPIN 300 MG CAP PO SCH (08:46)
[2016-09-04] MEDS: FLUCONAZOLE 100 MG TAB NGT SCH (08:46)
[2016-09-04] MEDS: LINAGLIPTIN 5 MG TABLET PO SCH (08:46)
[2016-09-04] MEDS: NPH, HUMAN INSULIN ISOPHANE 3ML VIAL SC SCH (08:48)
[2016-09-04] MEDS: GENTAMICIN 0.1% 15 GM OINT TOP SCH (08:49)
[2016-09-04] MEDS: MUPIROCIN 2% 22 GM OINT TOP SCH ×2 (08:49→20:48)
[2016-09-04] MEDS: COLLAGENASE 30 GM TUBE TOP SCH (08:50)
[2016-09-04 08:51] LABS: POTASSIUM 3.9 mmol/L (3.5-5.1)
[2016-09-04 08:53] LABS: CREATININE 0.7 mg/dl (0.44-1.00)
[2016-09-04 08:54] LABS: CALCIUM 7.1 mg/dl (8.4-10.2); PHOSPHORUS 2.1 mg/dl (2.5-4.9)
[2016-09-04] MEDS: VANCOMYCIN 750 MG in SOD CHLORIDE 0.9% 150 ML IVPB SCH (09:28)
--- NOTE | 2016-09-04 13:40 | PN ---
DATE: 09/04/2016 INFECTIOUS DISEASE PROGRESS NOTE SUBJECTIVE: No acute events overnight. The patient is lying comfortably in bed , sleeping. No fevers. WBC today 7, no shift, no bands. BUN 17, creatinine 0.70. MICROBIOLOGY: Urine and blood cultures repeated negative. ANTIMICROBIALS: The patient remains on: 1. IV vancomycin. 2. Topical gentamicin. 3. Oral fluconazole. 4. Rocephin. 5. Rifampin. PHYSICAL EXAMINATION: GENERAL: This is a fragile, chronically ill-appearing, elderly woman who is in no distress. HEENT: Head atraumatic, normocephalic. Sclerae anicteric. Buccal mucosa dry. NECK: Supple, trachea midline. CHEST: Chest rise symmetrical. Breath sounds clear. HEART: S1, S2. ABDOMEN: Soft, bowel tones present. EXTREMITIES: Bilateral lower extremity dressing intact. ASSESSMENT 1. Status post sepsis with methicillin-resistant Staphylococcus aureus bacteremia. 2. Status post Escherichia coli and methicillin-resistant Staphylococcus aureus urinary tract infection. 3. Methicillin-resistant Staphylococcus aureus nares colonization. 4. Bilateral heel decubitus, right more than left, status post multiple debridements with wound culture grew MRSA, enterococcus species, Katrina parapsilosis, Acinetobacter baumannii. 5. Diabetes, patient is being seen by endocrinology. 6. Anemia. 7. ALL: Sulfa PLAN: The patient remains stable. We are going to discontinue vancomycin and change it to oral Doxycycline. Continue Diflucan and monitor renal function closely, discontinue ceftriaxone and rifampin and local wound care as per podiatry. Dictated By: DEMAR VILLALOBOS SINGING WAITER OR WAITRESS for JESSIE LYMAN/TIN Conf#: [id number] DID#: [id number] JEN
--- NOTE | 2016-09-04 13:44 | PN ---
Date/Time of Note Date/Time of Note DATE: 09/04/16 TIME: 13:32 Assessment/Plan VTE Prophylaxis VTE Prophylaxis Intervention: SCD's Lines/Catheters IV Catheter Type (from [facility]): PICC Line Central line still needed: Yes Urinary Cath still in place: Yes Reason Cath still needed: other (indicate) Assessment/Plan Assessment/Plan 1. Upper gastrointestinal bleeding. The patient was evaluated by gastroenterology. Esophagogastroduodenoscopy revealed a Faye-Johnson tear, chronic gastritis, and nodular duodenitis. Continue proton pump inhibitors. 2. Atrial fibrillation with rapid ventricular response. Currently, the rate is controlled. No anticoagulation because of underlying gastrointestinal bleed. Cardiology following. Stable from cardiac standpoint 3. Sepsis with underlying MRSA bacteremia, infected pressure ulcers, and urinary tract infection. Continue antibiotics. Infectious disease is on the case. We will discuss with infectious disease regarding length of antibiotic treatment 4. Infected B/L heel pressure ulcers. Seen and evaluated by podiatry. S/P local debridement of the left heel ulcer on 08/20/2016 with repeat debridement on 08/29/2016. 5. Essential hypertension. Continue antihypertensives. 6. Peripheral vascular disease. Monitor for acute changes. Anticoagulation on hold because of anemia. 7. Dyslipidemia. Continue statins. Fasting lipid panel showing low HDL and low total cholesterol. 8. Type 2 diabetes mellitus. Hemoglobin A1c 9.8. Continue sliding scale insulin. decrease prednisone 9. Left upper extremity edema. Largely resolved. Left upper extremity venous Doppler study negative for any deep venous thrombosis. Continue elevation of left upper extremity. 10. Multiple pressure ulcers. Continue local wound care. Wound care consult. 11. Hyperthyroidism. The patient on methimazole. 12. MRSA colonization of the nares. Continue Bactroban. 13. Generalized maculopapular rashes with associated pruritus. decrease prednisone 14. Diastolic heart failure. Acute onset. Switch to p.o. potassium IV 1 replacement, replace magnesium 15. Fluid, electrolytes and nutrition. Carbohydrate controlled, low- cholesterol diet. Replace potassium continue Lasix 16. DVT prophylaxis with serial sequential compression devices. No anticoagulation because of underlying anemia. 17. Gastrointestinal prophylaxis with proton pump inhibitors. 18. Follow up with PT, d/c planning for tomorrow Subjective 24 Hr Interval Summary Free Text/Dictation no distress, afebrile Exam/Review of Systems Vital Signs Vitals Vital Signs Date Time Temp Pulse Resp B/P Pulse Ox O2 Delivery O2 Flow Rate FiO2 09/04/16 08:05 97.7 100 16 128/78 94 09/04/16 08:00 Nasal Cannula 2.0 Intake and Output 09/03/16 09/03/16 09/04/16 15:00 23:00 07:00 Intake Total 150 ml 1610 ml 800 ml Output Total 3100 ml 750 ml Balance 150 ml -1490 ml 50 ml Exam Constitutional: alert, well developed Psych: nl mood/affect, no complaints Head: atraumatic, normocephalic Eyes: EOMI, PERRL, nl conjunctiva, nl lids ENMT: mucosa pink and moist, nl external ears & nose, nl lips & teeth, nl nasal mucosa & septum Neck: non-tender, supple Respiratory: clear to auscultation, normal air movement, No congested cough, No crackles/rales, No diminished breath sounds, No intercostal retraction, No labored breathing, No respirations, No tactile fremitus, No wheezing Cardiovascular: irregular rhythm, nl pulses, No S3, No S4, No bruits, No diastolic murmur, No edema, No gallop, No jugular venous distention (JVD), No murmurs/extra sounds, No rub, No systolic murmur Gastrointestinal: nl liver, spleen, non-tender, soft, No ascites, No bowel sounds, No distended, No firm, No hepatomegaly, No mass , No rebound or guarding, No splenomegaly, No surgical scars, No tender Musculoskeletal: nl extremities to inspection Extremities: other (right heel wound), No calf tenderness, No clubbing, No cyanosis, No edema, No palpable cord, No pitting pedal edema, No tenderness Lymph: nl lymph nodes Results Result Diagram: 09/04/16 0815 09/04/16 0815 Results 24 hrs Laboratory Tests Test 09/03/16 17:01 09/03/16 19:00 09/03/16 20:41 09/04/16 02:19 Bedside Glucose 237 H 301 H 291 H Stool Occult Blood NEGATIVE Test 09/04/16 07:46 09/04/16 08:15 09/04/16 11:26 Bedside Glucose 278 H 271 H Anion Gap 9 Basophils # 0.0 Basophils % 0.4 Blood Morphology Comment Blood Urea Nitrogen 17 Calcium Level 7.1 L Carbon Dioxide Level 40 H Chloride Level 92 L Creatinine 0.70 Eosinophils # 0.2 Eosinophils % 2.4 Glucose Level 276 #H Hematocrit 30.5 L Hemoglobin 10.3 L Lymphocytes # 2.2 Lymphocytes % 32.2 Magnesium Level 2.0 Mean Corpuscular Hemoglobin 29.0 Mean Corpuscular Hemoglobin Concent 33.7 Mean Corpuscular Volume 86.0 Mean Platelet Volume 8.8 Monocytes # 0.6 Monocytes % 9.0 Neutrophils # 3.9 Neutrophils % 56.0 Nucleated Red Blood Cells # 0.0 Nucleated Red Blood Cells % 0.0 Phosphorus Level 2.1 L Platelet Count 199 Potassium Level 3.9 Red Blood Count 3.55 L Red Cell Distribution Width 17.6 H Sodium Level 137 Vancomycin Level Trough 18.3 White Blood Count 7.0 Medications Medications Current Medications Lorazepam (Ativan) 0.5 mg Q6H PRN IV ANXIETY Last administered on 08/31/16 21: 56; Admin Dose 0.5 MG; Start 08/13/16 at 16:00 Ondansetron HCl (Zofran Inj) 4 mg Q6H PRN IV NAUSEA AND/OR VOMITING Last administered on 08/27/16 03:37; Admin Dose 4 MG; Start 08/13/16 at 16:00 Nitroglycerin (Nitroglycerin (Sl Tab) 0.4 Mg) 1 tab Q5M PRN SL CHEST PAIN Last administered on 08/21/16 23:04; Admin Dose 1 TAB; Start 08/13/16 at 16:00 Acetaminophen (Tylenol Supp) 650 mg Q6H PRN [place] PAIN LEVEL 1-3 OR FEVER; Start 08/13/16 at 16:00 Morphine Sulfate (morphine) 2 mg Q4H PRN IV PAIN LEVEL 7-10 Last administered on 09/01/16 23:12; Admin Dose 2 MG; Start 08/13/16 at 16:00 Bisacodyl (Dulcolax) 5 mg DAILY PRN PO CONSTIPATION Last administered on 21:51; Admin Dose 5 MG; Start 08/13/16 at 16:00 Miscellaneous Information 1 ea NOTE XX ; Start 08/13/16 at 17:30 Glucose (Glutose) 15 gm Q15M PRN PO DECREASED GLUCOSE; Start 08/13/16 at 17:30 Glucose (Glutose) 22.5 gm Q15M PRN PO DECREASED GLUCOSE; Start 08/13/16 at 17:30 Dextrose (D50w Syringe) 25 ml Q15M PRN IV DECREASED GLUCOSE Last administered on 08/29/16 08:13; Admin Dose 25 ML; Start 08/13/16 at 17:30 Dextrose (D50w Syringe) 50 ml Q15M PRN IV DECREASED GLUCOSE Last administered on 08/23/16 06:16; Admin Dose 50 ML; Start 08/13/16 at 17:30 Glucagon (Glucagen) 1 mg Q15M PRN IM DECREASED GLUCOSE; Start 08/13/16 at 17:30 Glucose (Glutose) 15 gm Q15M PRN BUCCAL DECREASED GLUCOSE; Start 08/13/16 at 17: 30 Mupirocin (Bactroban) 1 applic BID TOP Last administered on 09/04/16 08:49; Admin Dose 1 APPLIC; Start 08/15/16 at 13:00 Atorvastatin Calcium (Lipitor) 10 mg QHS PO Last administered on 09/03/16 20: 40; Admin Dose 10 MG; Start 08/15/16 at 21:00 Metoprolol Tartrate (Lopressor) 50 mg BID PO Last administered on 09/04/16 08: 46; Admin Dose 50 MG; Start 08/15/16 at 15:00 Diagnostic Test (Pha) (Accucheck) 1 ea 02 XX Last administered on 09/04/16 02: 00; Admin Dose 1 EA; Start 08/16/16 at 02:00 Linagliptin (Tradjenta) 5 mg DAILY PO Last administered on 09/04/16 08:46; Admin Dose 5 MG; Start 08/15/16 at 18:30 IV Flush (NS 10 ml) 10 ml PRN PRN IV IV PROTOCOL Last administered on 20:20; Admin Dose 10 ML; Start 08/16/16 at 15:30 Collagenase (Santyl) 1 applic DAILY TOP Last administered on 09/04/16 08:50; Admin Dose 1 APPLIC; Start 08/17/16 at 09:00 Pantoprazole (Protonix Tab) 40 mg DAILY@06 PO Last administered on 09/04/16 06 :08; Admin Dose 40 MG; Start 08/20/16 at 06:00 Diphenhydramine HCl (Benadryl) 25 mg Q6H PRN IV ITCHING Last administered on 10:00; Admin Dose 25 MG; Start 08/22/16 at 12:00 Fluconazole (Diflucan) 100 mg DAILY NGT Last administered on 09/04/16 08:46; Admin Dose 100 MG; Start 08/24/16 at 09:00 Loratadine (Claritin) 10 mg DAILY PO Last administered on 09/04/16 08:45; Admin Dose 10 MG; Start 08/23/16 at 14:30 Insulin Glargine (Lantus) 10 unit HS SC Last administered on 09/03/16 20:46; Admin Dose 10 UNIT; Start 08/23/16 at 21:00 Hydroxyzine HCl (Atarax) 25 mg Q6H PRN PO ITCHING Last administered on 13:24; Admin Dose 25 MG; Start 08/26/16 at 21:00 Gentamicin Sulfate (Gentamicin 0.1% Oint) 1 applic DAILY TOP Last administered on 09/04/16 08:49; Admin Dose 1 APPLIC; Start 08/29/16 at 18:00 Diphenhydramine HCl (Benadryl) 25 mg BID IV Last administered on 09/04/16 08: 45; Admin Dose 25 MG; Start 09/01/16 at 11:00 Prednisone (Prednisone) 40 mg DAILY PO Last administered on 09/04/16 08:45; Admin Dose 40 MG; Start 09/03/16 at 09:00 Furosemide (Lasix) 40 mg DAILY IV Last administered on 09/04/16 08:44; Admin Dose 40 MG; Start 09/03/16 at 09:00 Insulin Human NPH (Humulin N) 10 unit AM SC Last administered on 09/04/16 08: 48; Admin Dose 10 UNIT; Start 09/03/16 at 09:00 Methimazole (Tapazole) 25 mg DAILY PO Last administered on 09/04/16 08:45; Admin Dose 25 MG; Start 09/03/16 at 09:00 Doxycycline Hyclate (Vibramycin) 100 mg BID PO ; Start 09/04/16 at 21:00 SOLO ENGLAND MD Sep 04, 2016 13:44
--- NOTE | 2016-09-04 17:21 | PN ---
Date/Time of Note Date/Time of Note DATE: 09/04/16 TIME: 17:20 Assessment/Plan VTE Prophylaxis VTE Prophylaxis Intervention: SCD's Lines/Catheters IV Catheter Type (from Nrs): PICC Line Central line still needed: No Urinary Cath still in place: No Reason Cath still needed: urinary retention Assessment/Plan Assessment/Plan Sepsis Atrial fibrillation with rapid ventricular rates, improved Acute blood loss anemia/GI bleed Preserved ejection fraction Hyperthyroidism History of hypertension History of CVA Diabetes -heart rate trend overall stable, continue Lopressor and BP tolerates, no anticoagulation until ok from GI perspective hypokalemia m- replace K Constitutional: no complaints Subjective 24 Hr Interval Summary Free Text/Dictation The patient with no cahgne Exam/Review of Systems Vital Signs Vitals Vital Signs Date Time Temp Pulse Resp B/P Pulse Ox O2 Delivery O2 Flow Rate FiO2 09/04/16 16:51 2.0 09/04/16 08:05 97.7 100 16 128/78 94 09/04/16 08:00 Nasal Cannula Intake and Output 09/03/16 09/03/16 09/04/16 15:00 23:00 07:00 Intake Total 150 ml 1610 ml 800 ml Output Total 3100 ml 750 ml Balance 150 ml -1490 ml 50 ml Results Result Diagram: 09/04/16 0815 09/04/16 0815 Results 24 hrs Laboratory Tests Test 09/03/16 19:00 09/03/16 20:41 09/04/16 02:19 09/04/16 07:46 Stool Occult Blood NEGATIVE Bedside Glucose 301 H 291 H 278 H Test 09/04/16 08:15 09/04/16 11:26 Anion Gap 9 Basophils # 0.0 Basophils % 0.4 Blood Morphology Comment Blood Urea Nitrogen 17 Calcium Level 7.1 L Carbon Dioxide Level 40 H Chloride Level 92 L Creatinine 0.70 Eosinophils # 0.2 Eosinophils % 2.4 Glucose Level 276 #H Hematocrit 30.5 L Hemoglobin 10.3 L Lymphocytes # 2.2 Lymphocytes % 32.2 Magnesium Level 2.0 Mean Corpuscular Hemoglobin 29.0 Mean Corpuscular Hemoglobin Concent 33.7 Mean Corpuscular Volume 86.0 Mean Platelet Volume 8.8 Monocytes # 0.6 Monocytes % 9.0 Neutrophils # 3.9 Neutrophils % 56.0 Nucleated Red Blood Cells # 0.0 Nucleated Red Blood Cells % 0.0 Phosphorus Level 2.1 L Platelet Count 199 Potassium Level 3.9 Red Blood Count 3.55 L Red Cell Distribution Width 17.6 H Sodium Level 137 Vancomycin Level Trough 18.3 White Blood Count 7.0 Bedside Glucose 271 H Medications Medications Current Medications Lorazepam (Ativan) 0.5 mg Q6H PRN IV ANXIETY Last administered on 08/31/16 21: 56; Admin Dose 0.5 MG; Start 08/13/16 at 16:00 Ondansetron HCl (Zofran Inj) 4 mg Q6H PRN IV NAUSEA AND/OR VOMITING Last administered on 08/27/16 03:37; Admin Dose 4 MG; Start 08/13/16 at 16:00 Nitroglycerin (Nitroglycerin (Sl Tab) 0.4 Mg) 1 tab Q5M PRN SL CHEST PAIN Last administered on 08/21/16 23:04; Admin Dose 1 TAB; Start 08/13/16 at 16:00 Acetaminophen (Tylenol Supp) 650 mg Q6H PRN HI PAIN LEVEL 1-3 OR FEVER; Start 08/13/16 at 16:00 Morphine Sulfate (morphine) 2 mg Q4H PRN IV PAIN LEVEL 7-10 Last administered on 09/01/16 23:12; Admin Dose 2 MG; Start 08/13/16 at 16:00 Bisacodyl (Dulcolax) 5 mg DAILY PRN PO CONSTIPATION Last administered on 21:51; Admin Dose 5 MG; Start 08/13/16 at 16:00 Miscellaneous Information 1 ea NOTE XX ; Start 08/13/16 at 17:30 Glucose (Glutose) 15 gm Q15M PRN PO DECREASED GLUCOSE; Start 08/13/16 at 17:30 Glucose (Glutose) 22.5 gm Q15M PRN PO DECREASED GLUCOSE; Start 08/13/16 at 17:30 Dextrose (D50w Syringe) 25 ml Q15M PRN IV DECREASED GLUCOSE Last administered on 08/29/16 08:13; Admin Dose 25 ML; Start 08/13/16 at 17:30 Dextrose (D50w Syringe) 50 ml Q15M PRN IV DECREASED GLUCOSE Last administered on 08/23/16 06:16; Admin Dose 50 ML; Start 08/13/16 at 17:30 Glucagon (Glucagen) 1 mg Q15M PRN IM DECREASED GLUCOSE; Start 08/13/16 at 17:30 Glucose (Glutose) 15 gm Q15M PRN BUCCAL DECREASED GLUCOSE; Start 08/13/16 at 17: 30 Mupirocin (Bactroban) 1 applic BID TOP Last administered on 09/04/16 08:49; Admin Dose 1 APPLIC; Start 08/15/16 at 13:00 Atorvastatin Calcium (Lipitor) 10 mg QHS PO Last administered on 09/03/16 20: 40; Admin Dose 10 MG; Start 08/15/16 at 21:00 Metoprolol Tartrate (Lopressor) 50 mg BID PO Last administered on 09/04/16 08: 46; Admin Dose 50 MG; Start 08/15/16 at 15:00 Diagnostic Test (Pha) (Accucheck) 1 ea 02 XX Last administered on 09/04/16 02: 00; Admin Dose 1 EA; Start 08/16/16 at 02:00 Linagliptin (Tradjenta) 5 mg DAILY PO Last administered on 09/04/16 08:46; Admin Dose 5 MG; Start 08/15/16 at 18:30 IV Flush (NS 10 ml) 10 ml PRN PRN IV IV PROTOCOL Last administered on 20:20; Admin Dose 10 ML; Start 08/16/16 at 15:30 Collagenase (Santyl) 1 applic DAILY TOP Last administered on 09/04/16 08:50; Admin Dose 1 APPLIC; Start 08/17/16 at 09:00 Diphenhydramine HCl (Benadryl) 25 mg Q6H PRN IV ITCHING Last administered on 10:00; Admin Dose 25 MG; Start 08/22/16 at 12:00 Fluconazole (Diflucan) 100 mg DAILY NGT Last administered on 09/04/16 08:46; Admin Dose 100 MG; Start 08/24/16 at 09:00 Loratadine (Claritin) 10 mg DAILY PO Last administered on 09/04/16 08:45; Admin Dose 10 MG; Start 08/23/16 at 14:30 Insulin Glargine (Lantus) 10 unit HS SC Last administered on 09/03/16 20:46; Admin Dose 10 UNIT; Start 08/23/16 at 21:00 Hydroxyzine HCl (Atarax) 25 mg Q6H PRN PO ITCHING Last administered on 13:24; Admin Dose 25 MG; Start 08/26/16 at 21:00 Gentamicin Sulfate (Gentamicin 0.1% Oint) 1 applic DAILY TOP Last administered on 09/04/16 08:49; Admin Dose 1 APPLIC; Start 08/29/16 at 18:00 Diphenhydramine HCl (Benadryl) 25 mg BID IV Last administered on 09/04/16 08: 45; Admin Dose 25 MG; Start 09/01/16 at 11:00 Furosemide (Lasix) 40 mg DAILY IV Last administered on 09/04/16 08:44; Admin Dose 40 MG; Start 09/03/16 at 09:00 Insulin Human NPH (Humulin N) 10 unit AM SC Last administered on 09/04/16 08: 48; Admin Dose 10 UNIT; Start 09/03/16 at 09:00 Methimazole (Tapazole) 25 mg DAILY PO Last administered on 09/04/16 08:45; Admin Dose 25 MG; Start 09/03/16 at 09:00 Doxycycline Hyclate (Vibramycin) 100 mg BID PO ; Start 09/04/16 at 21:00 Pantoprazole Sodium (Protonix) 20 mg DAILY@06 PO ; Start 09/05/16 at 06:00 Prednisone (Prednisone) 10 mg DAILY PO ; Start 09/05/16 at 09:00 KIKE WRIGHT MD Sep 04, 2016 17:21
[2016-09-04 20:10] VITALS: BP 141/63; RESP 18
[2016-09-04] MEDS: DOXYCYCLINE 100 MG TAB PO SCH (20:47)
[2016-09-04] MEDS: ATORVASTATIN 10 MG TAB PO SCH (20:48)
[2016-09-04] MEDS: INSULIN GLARGINE [LANtus] 3 ML PEN SC SCH (20:52)
[2016-09-05] MEDS: ACCUCHECK XX SCH (02:00)
--- NOTE | 2016-09-05 04:14 | CONS ---
DATE OF ADMISSION: 08/14/2016 DATE OF CONSULTATION: 09/04/2016 SUBJECTIVE FINDINGS: The patient is being followed for bilateral foot ulceration. He is [facility], likely pending. The patient without any acute complaints . The patient is currently on vancomycin, Rifampin, Rocephin, and Diflucan. OBJECTIVE: VITAL SIGNS: Temperature 98.3, pulse is 100, respiratory rate 18, blood pressure 141/63, pulse oxim etry 95%. GENERAL: Alert, fragile appearing. HEENT: Head is normocephalic, atraumatic. Trachea is midline. PULMONARY: Regular respiration. EXTREMITIES: Mild bilateral lower extremity edema. Left posterior ulceration, 3 x 4 cm, with serou s drainage, no malodor. Right foot with ulceration 4 x 7 cm with improved granulation, no malodor, no undermining, tunneling, stable eschar to the right foot medial first metatarsophalangeal joint of unstageable depth. Mild pain with palpation. LABORATORIES: WBC 7, hemoglobin 10.3, hematocrit 30.5, platelets 199. Sodium 137, potassium 3.9, c hloride 92, CO2 of 40, BUN 17, creatinine 0.7. ASSESSMENT: 1. Decubitus ulcerations, bilateral heel, stage III. 2. Sepsis with methicillin-resistant Staphylococcus aureus bacteremia. 3. Methicillin-resistant Staphylococcus aureus urinary tract infection. 4. Anemia. 5. Atrial fibrillation. 6. History of cerebrovascular accident. 7. Thyroid toxicosis. 8. Diabetes type 2. PLAN: Improvement of wounds. Skin care, wound care performed. Continue daily dressing changes. W ill need staged debridement. Can follow up as an outpatient. Continue decubitus precautions with r epositioning every 2 hours. Dictated By: ANNI ROSAS DPM RB/NTS Conf#: [id number] DID#: [id number]
[2016-09-05] MEDS ORDERED: PANTOPRAZOLE SODIUM 20 MG TABEC PO SCH (06:00)
[2016-09-05 06:37] LABS: POTASSIUM 3.6 mmol/L (3.5-5.1)
[2016-09-05 06:39] LABS: CREATININE 0.65 mg/dl (0.44-1.00)
[2016-09-05 06:58] LABS: BASOPHILS % 0.5 % (0.0-2.0); EOSINOPHILS # 0.2 10^3/ul (0.0-0.5); EOSINOPHILS % 3.5 % (0.0-7.0); HEMOGLOBIN 10.1 g/dl (12.0-16.0); LYMPHOCYTES # 2.4 10^3/ul (0.8-2.9); LYMPHOCYTES % 35.4 % (15.0-51.0); MEAN CORPUSCULAR HEMOGLOBIN 28.7 pg (29.0-33.0); MEAN CORPUSCULAR HGB CONC 32.5 g/dl (32.0-37.0); MEAN CORPUSCULAR VOLUME 88.4 fl (82.0-101.0); MEAN PLATELET VOLUME 8.5 fl (7.4-10.4); MONOCYTE # 0.6 10^3/ul (0.3-0.9); NEUTROPHIL # 3.6 10^3/ul (1.6-7.5); NEUTROPHILS % 52.6 % (39.0-77.0); PLATELET COUNT 196 10^3/UL (140-440); RED BLOOD COUNT 3.51 10^6/ul (4.20-5.40); UNCORRECTED WBC 6.9 10^3/ul (4.8-10.8); WHITE BLOOD COUNT 6.9 10^3/ul (4.8-10.8)
[2016-09-05 07:13] LABS: CONDITION 1; LH ANALYZER COMMENTS 1
[2016-09-05 07:53] VITALS: BP 136/58; RESP 20
[2016-09-05] MEDS ORDERED: predniSONE 10 MG TAB PO SCH (09:00)
[2016-09-05] MEDS: LORATADINE 10 MG TAB PO SCH (09:22)
[2016-09-05] MEDS: FLUCONAZOLE 100 MG TAB NGT SCH (09:22)
[2016-09-05] MEDS: DOXYCYCLINE 100 MG TAB PO SCH (09:22)
[2016-09-05] MEDS: FUROSEMIDE 40 MG INJ IV SCH (09:22)
[2016-09-05] MEDS: DIPHENHYDRAMINE 50 MG INJ IV SCH (09:23)
[2016-09-05] MEDS: LINAGLIPTIN 5 MG TABLET PO SCH (09:23)
[2016-09-05] MEDS: METOPROLOL 50 MG TAB PO SCH (09:23)
[2016-09-05] MEDS: METHIMAZOLE 5 MG TAB PO SCH (09:23)
[2016-09-05] MEDS: INSULIN ASPART [NOVOLOG] 3 ML PEN SC SCH ×3 (09:28→17:24)
[2016-09-05] MEDS: NPH, HUMAN INSULIN ISOPHANE 3ML VIAL SC SCH (09:28)
[2016-09-05] MEDS: COLLAGENASE 30 GM TUBE TOP SCH (09:33)
[2016-09-05] MEDS: MUPIROCIN 2% 22 GM OINT TOP SCH (09:33)
[2016-09-05] MEDS: GENTAMICIN 0.1% 15 GM OINT TOP SCH (09:34)
[2016-09-05] MEDS ORDERED: VANCOMYCIN 500MG/NS (PMX) 100 ML IVPB SCH (11:00)
[2016-09-05] MEDS ORDERED: FLUC100T NGT (13:27)
[2016-09-05] MEDS ORDERED: LANT3I SC (13:27)
[2016-09-05] MEDS ORDERED: MUPI22OI2 TOP (13:27)
[2016-09-05] MEDS ORDERED: GEN15OI1 TOP (13:27)
[2016-09-05] MEDS ORDERED: DOXY100T2 PO (13:27)
[2016-09-05] MEDS ORDERED: NOVO3I SC (13:27)
[2016-09-05] MEDS ORDERED: SAN30GM TOP (13:27)
--- NOTE | 2016-09-05 13:40 | DS ---
Date/Time of Note Date/Time of Note DATE: 09/05/16 TIME: 13:28 Discharge Summary Admission/Discharge Info Admit Date/Time Aug 14, 2016 at 01:54 Discharge Date/Time Final Diagnosis 1. Upper gastrointestinal bleeding. The patient was evaluated by gastroenterology. Esophagogastroduodenoscopy revealed a Faye-Johnson tear, chronic gastritis, and nodular duodenitis. Continue protonix 2. Atrial fibrillation with rapid ventricular response. Currently, the rate is controlled. No anticoagulation because of underlying gastrointestinal bleed. Cardiology following. Stable from cardiac standpoint 3. Sepsis with underlying MRSA bacteremia, infected pressure ulcers, and urinary tract infection. Continue antibiotics with doxycycline 4. Infected B/L heel pressure ulcers. S/P local debridement of the left heel ulcer on 08/20/2016 with repeat debridement on 08/29/2016. follow up with wound care and follow up with Dr. Hinds 5. Essential hypertension. Continue antihypertensives. 6. Peripheral vascular disease. Monitor for acute changes. Anticoagulation on hold because of anemia. 7. Dyslipidemia. Continue statins. 8. Type 2 diabetes mellitus. Hemoglobin A1c 9.8. Continue sliding scale insulin, on lantus and metformin 9. Hyperthyroidism. The patient on methimazole. 10. MRSA colonization of the nares. Continue Bactroban. 11. Diastolic heart failure. stable 12. DVT prophylaxis with serial sequential compression devices. No anticoagulation because of underlying anemia. Patient Condition: Stable Hx of Present Illness 80 yo female who came in via [facility] from [facility] who has a past medical history of CVA , essential hypertension, CHF - diastolic type, AFib, dyslipidemia, PVD, GERD, anxiety, who came in because of weakness. She has been feeling weak for a couple of days. During her ER visit, she had 2 episodes of hematemesis. She went into AFib RVR - placed on cardizem gtt. She denies any chest pain, loss of consciousness, headaches, urinary irregularities, shortness of breath, diarrhea , dizziness or other constitutional symptoms. Hospital Course 80 yo female who came in via [facility] from [facility] who has a past medical history of CVA , essential hypertension, CHF - diastolic type, AFib, dyslipidemia, PVD, GERD, anxiety, who came in because of weakness. She has been feeling weak for a couple of days. During her ER visit, she had 2 episodes of hematemesis. She went into AFib RVR - placed on cardizem gtt. She denies any chest pain, loss of consciousness, headaches, urinary irregularities, shortness of breath, diarrhea , dizziness or other constitutional symptoms. About the upper GI bleeding, EGD revealed Faye-Johnson tear. She got PRBC transfusion and protonix. No active bleeding there after. H/H 10.09/05 on 2016. For atrial fibrillation, VR is well controlled. No anticoagulant at this time due to recent GI bleeding. Follow up with cardiology outpatient. Patient has bilateral heel wound that were debrided by Dr. Hinds, who will follow up with patient outpatient. Patient will be on oral doxycycline. Home Meds Active Scripts Mupirocin* (Bactroban*) 2% -22 Gram Oint...g., 1 APPLIC TOP BID for 5 Days Prov:SOLO ENGLAND MD 09/05/16 Insulin Aspart* (Novolog Insulin Pen*) 100 Unit/Ml Soln, 0 UNIT SC WITH MEALS BEDTIME for 30 Days Prov:SOLO ENGLAND MD 09/05/16 Insulin Glargine* (Lantus*) 100 Unit/Ml Soln, 10 UNIT SC HS for 30 Days Prov:SOLO ENGLAND MD 09/05/16 Gentamicin Sulfate* (Gentamicin Sulfate* Oint) 0.1% - 15 Gm Oint, 1 APPLIC TOP DAILY for 30 Days Prov:SOLO ENGLAND MD 09/05/16 Fluconazole* (Diflucan*) 100 Mg Tablet, 100 MG NGT DAILY for 7 Days, TAB Prov:SOLO ENGLAND MD 09/05/16 Doxycycline* (Vibramycin*) 100 Mg Tab, 100 MG PO BID for 14 Days, TAB Prov:SOLO ENGLAND MD 09/05/16 Collagenase* (Santyl*) 30 Gm Oint..gm., 1 APPLIC TOP DAILY for 30 Days Prov:SOLO ENGLAND MD 09/05/16 Reported Medications Ascorbic Acid* (Vitamin C*) 500 Mg Capsule.sa, 500 MG PO DAILY, CAP 08/13/16 Ondansetron Hcl* (Zofran*) 4 Mg Tab, 4 MG PO Q4H Y for NAUSEA AND OR VOMITING, TAB 08/13/16 Calcium Carbonate/Vitamin D3 (Oysco 500+D Tablet) 1 Each Tablet, 1 EACH PO DAILY , TAB 08/13/16 Guaifenesin* (Robitussin*) 100 Mg/5 Ml Syrup, 200 MG PO Q4H Y for COUGH, ML 08/13/16 Tramadol Hcl* (Ultram*) 50 Mg Tablet, 50 MG PO Q4 Y for PAIN, TAB 08/13/16 Acetaminophen* (Acetaminophen*) 650 Mg Tablet, 650 MG PO Q4 Y for PAIN AND OR ELEVATED TEMP, #30 TAB 08/13/16 Amlodipine Besylate* (Norvasc*) 5 Mg Tablet, 5 MG PO DAILY, TAB 08/13/16 Nitroglycerin* (Nitrostat*) 0.4 Mg Tab.subl, 0.4 MG SL Q5MIN Y for CHEST PAIN, BOTTLE 08/13/16 Sodium Chloride* (Koffi-128*) 5%-15ml Opht, 1 DROP BOTH EYES TID, EA 08/13/16 Multivitamins* (Theragran*) 1 Tab Tab, 1 TAB PO DAILY, TAB 08/13/16 Metformin Hcl* (Metformin Hcl*) 500 Mg Tablet, 500 MG PO WITH MEALS, #30 TAB 08/13/16 Atorvastatin Calcium (Atorvastatin Calcium) 10 Mg Tablet, 10 MG PO QHS, #30 TAB 08/13/16 Insulin Glargine* (Lantus*) 100 Unit/Ml Soln, 30 UNIT SC QHS, #1 VIAL 08/13/16 Glipizide* (Glipizide*) 5 Mg Tablet, 5 MG PO AC BREAKFAST DINNER, TAB 08/13/16 Na Phos,M-B/Na Phos,Di-Ba (ENEMA READY TO USE) 135 Ml Enema, 135 ML RC PRN Y for CONSTIPATION, ENEMA 08/13/16 Bisacodyl* (Dulcolax*) 5 Mg Tablet.dr, 10 MG PO DAILY Y for CONSTIPATION, TAB 08/13/16 Cranberry Extract (Cranberry) 425 Mg Capsule, 425 MG PO DAILY, CAP 08/13/16 Polyvinyl Alcohol (Tears Again) 15 Ml Drops, 1 DRP BOTH EYES TID, BOTTLE 08/13/16 Aspirin (Low Dose Aspirin) 81 Mg Tablet.dr, 81 MG PO DAILY, #30 TAB 08/13/16 Diphenhydramine Hcl* (Benadryl*) 25 Mg Cap, 25 MG PO PRN Y for ITCHING, CAP 08/13/16 Buspirone Hcl* (Buspirone Hcl*) 10 Mg Tab, 10 MG PO MONWEDFRI, TAB AT BEDTIME 08/13/16 Clonidine Hcl* (Clonidine Hcl*) 0.1 Mg Tab, 0.1 MG PO Q8 Y for ELEVATED BLOOD PRESSURE, TAB GIVE IF SBP ABOVE 160 08/13/16 Docusate Sodium* (Colace*) 100 Mg Capsule, 200 MG PO QHS, #30 CAP 08/13/16 Carvedilol* (Coreg*) 12.5 Mg Tablet, 12.5 MG PO BID, #60 TAB 08/13/16 Follow-up Plan PCP one week Dr. Hinds one week Cardiology one week Pending Labs Laboratory Tests Test 09/04/16 17:23 09/04/16 19:03 09/04/16 20:46 09/05/16 02:49 Bedside Glucose 374mg/dL (70-220) 395mg/dL (70-220) 397mg/dL (70-220) 206mg/dL (70-220) Test 09/05/16 05:45 09/05/16 07:48 09/05/16 12:16 Anion Gap 5 (8-16) Basophils # 0.010^3/ul (0.0-0.1) Basophils % 0.5% (0.0-2.0) Blood Morphology Comment Blood Urea Nitrogen 19mg/dl (7-20) Calcium Level 7.0mg/dl (8.4-10.2) Carbon Dioxide Level 43mmol/L (21-31) Chloride Level 92mmol/L (97-110) Creatinine 0.65mg/dl (0.44-1.00) Eosinophils # 0.210^3/ul (0.0-0.5) Eosinophils % 3.5% (0.0-7.0) Glucose Level 157mg/dl (70-220) Hematocrit 31.0% (37.0-47.0) Hemoglobin 10.1g/dl (12.0-16.0) Lymphocytes # 2.410^3/ul (0.8-2.9) Lymphocytes % 35.4% (15.0-51.0) Mean Corpuscular Hemoglobin 28.7pg (29.0-33.0) Mean Corpuscular Hemoglobin Concent 32.5g/dl (32.0-37.0) Mean Corpuscular Volume 88.4fl (82.0-101.0) Mean Platelet Volume 8.5fl (7.4-10.4) Monocytes # 0.610^3/ul (0.3-0.9) Monocytes % 8.0% (0.0-11.0) Neutrophils # 3.610^3/ul (1.6-7.5) Neutrophils % 52.6% (39.0-77.0) Nucleated Red Blood Cells # 0.010^3/ul (0.0-0.0) Nucleated Red Blood Cells % 0.0/100WBC (0.0-0.0) Platelet Count 52436^3/UL (140-440) Potassium Level 3.6mmol/L (3.5-5.1) Red Blood Count 3.5110^6/ul (4.20-5.40) Red Cell Distribution Width 17.0% (11.5-14.5) Sodium Level 136mmol/L (135-144) White Blood Count 6.910^3/ul (4.8-10.8) Bedside Glucose 160mg/dL (70-220) 217mg/dL (70-220) SOLO ENGLAND MD Sep 05, 2016 13:39
--- NOTE | 2016-09-05 15:36 | CONS ---
Date/Time of Note Date/Time of Note DATE: 09/05/16 TIME: 15:34 Assessment/Plan Assessment/Plan Chief Complaint/Hosp Course Subjective: awake, eating lunch, no fevers, nad MICROBIOLOGY: Blood cultures on admission grew MRSA. Urine culture grew E. coli and MRSA. Nares swab came back positive for MRSA. Wound culture grew MRSA/ GNR/yeast ANTIMICROBIALS: Doxycycline, Diflucan INDWELLINGS: Lundy catheter, PICC. PHYSICAL EXAMINATION: GENERAL: Fragile, elderly woman who is awake, in no distress. HEENT: Head atraumatic, normocephalic. Sclerae anicteric. Buccal mucosa dry. NECK: Supple, trachea midline. CHEST: Rise symmetrical. Breath sounds diminished to bases. HEART: S1, S2. ABDOMEN: Soft. Bowel tones present. EXTREMITIES: warm, B heels dsg intact ASSESSMENT: 1. S/p sepsis. 2. Methicillin-resistant Staphylococcus aureus bacteremia 2 to below. 3. S/p polymicrobial urinary tract infection with urine culture growing MRSA and E. coli. 4. Bilateral heel cellulitis with chronic wounds==> s/p debridement 08/20, 08/29 5. Methicillin-resistant Staphylococcus aureus nares colonization. 6. Anemia, status post hematemesis and EGD that revealed Faye-Johnson tear and chronic gastritis. 7. History of atrial fibrillation . 8. History of cerebrovascular accident. 9. Diabetes. 10. CHF PLAN: Clinically stable, continue ab, local wound care per podiatry==>will need staged debridement [facility] staff Problems: Consultation Date/Type/Reason Admit Date/Time Aug 14, 2016 at 01:54 Initial Consult Date 08/15/16 Type of Consultation: ID Referring Provider: SÁNCHEZ WOMACK MD Exam/Review of Systems Vital Signs Vitals Vital Signs Date Time Temp Pulse Resp B/P Pulse Ox O2 Delivery O2 Flow Rate FiO2 09/05/16 08:00 Nasal Cannula 2.0 09/05/16 07:53 97.6 96 20 136/58 97 Intake and Output 09/04/16 09/04/16 09/05/16 15:00 23:00 07:00 Intake Total 3160 ml 240 ml Output Total 1100 ml 800 ml Balance 2060 ml -560 ml Results Result Diagram: 09/05/16 0545 09/05/16 0545 Results 24 hrs Laboratory Tests Test 09/04/16 17:23 09/04/16 19:03 09/04/16 20:46 09/05/16 02:49 Bedside Glucose 374 H 395 H 397 H 206 Test 09/05/16 05:45 09/05/16 07:48 09/05/16 12:16 Anion Gap 5 L Basophils # 0.0 Basophils % 0.5 Blood Morphology Comment Blood Urea Nitrogen 19 Calcium Level 7.0 L Carbon Dioxide Level 43 *H Chloride Level 92 L Creatinine 0.65 Eosinophils # 0.2 Eosinophils % 3.5 Glucose Level 157 # Hematocrit 31.0 L Hemoglobin 10.1 L Lymphocytes # 2.4 Lymphocytes % 35.4 Mean Corpuscular Hemoglobin 28.7 L Mean Corpuscular Hemoglobin Concent 32.5 Mean Corpuscular Volume 88.4 Mean Platelet Volume 8.5 Monocytes # 0.6 Monocytes % 8.0 Neutrophils # 3.6 Neutrophils % 52.6 Nucleated Red Blood Cells # 0.0 Nucleated Red Blood Cells % 0.0 Platelet Count 196 Potassium Level 3.6 Red Blood Count 3.51 L Red Cell Distribution Width 17.0 H Sodium Level 136 White Blood Count 6.9 Bedside Glucose 160 217 Medications Medications Current Medications Lorazepam (Ativan) 0.5 mg Q6H PRN IV ANXIETY Last administered on 08/31/16 21: 56; Admin Dose 0.5 MG; Start 08/13/16 at 16:00 Ondansetron HCl (Zofran Inj) 4 mg Q6H PRN IV NAUSEA AND/OR VOMITING Last administered on 08/27/16 03:37; Admin Dose 4 MG; Start 08/13/16 at 16:00 Nitroglycerin (Nitroglycerin (Sl Tab) 0.4 Mg) 1 tab Q5M PRN SL CHEST PAIN Last administered on 08/21/16 23:04; Admin Dose 1 TAB; Start 08/13/16 at 16:00 Acetaminophen (Tylenol Supp) [address] PAIN LEVEL 1-3 OR FEVER; Start 08/13/16 at 16:00 Morphine Sulfate (morphine) 2 mg Q4H PRN IV PAIN LEVEL 7-10 Last administered on 09/01/16 23:12; Admin Dose 2 MG; Start 08/13/16 at 16:00 Bisacodyl (Dulcolax) 5 mg DAILY PRN PO CONSTIPATION Last administered on 21:51; Admin Dose 5 MG; Start 08/13/16 at 16:00 Miscellaneous Information 1 ea NOTE XX ; Start 08/13/16 at 17:30 Glucose (Glutose) 15 gm Q15M PRN PO DECREASED GLUCOSE; Start 08/13/16 at 17:30 Glucose (Glutose) 22.5 gm Q15M PRN PO DECREASED GLUCOSE; Start 08/13/16 at 17:30 Dextrose (D50w Syringe) 25 ml Q15M PRN IV DECREASED GLUCOSE Last administered on 08/29/16 08:13; Admin Dose 25 ML; Start 08/13/16 at 17:30 Dextrose (D50w Syringe) 50 ml Q15M PRN IV DECREASED GLUCOSE Last administered on 08/23/16 06:16; Admin Dose 50 ML; Start 08/13/16 at 17:30 Glucagon (Glucagen) 1 mg Q15M PRN IM DECREASED GLUCOSE; Start 08/13/16 at 17:30 Glucose (Glutose) 15 gm Q15M PRN BUCCAL DECREASED GLUCOSE; Start 08/13/16 at 17: 30 Mupirocin (Bactroban) 1 applic BID TOP Last administered on 09/05/16 09:33; Admin Dose 1 APPLIC; Start 08/15/16 at 13:00 Atorvastatin Calcium (Lipitor) 10 mg QHS PO Last administered on 09/04/16 20: 48; Admin Dose 10 MG; Start 08/15/16 at 21:00 Metoprolol Tartrate (Lopressor) 50 mg BID PO Last administered on 09/05/16 09: 23; Admin Dose 50 MG; Start 08/15/16 at 15:00 Diagnostic Test (Pha) (Accucheck) 1 ea 02 XX Last administered on 09/04/16 02: 00; Admin Dose 1 EA; Start 08/16/16 at 02:00 Linagliptin (Tradjenta) 5 mg DAILY PO Last administered on 09/05/16 09:23; Admin Dose 5 MG; Start 08/15/16 at 18:30 IV Flush (NS 10 ml) 10 ml PRN PRN IV IV PROTOCOL Last administered on 20:20; Admin Dose 10 ML; Start 08/16/16 at 15:30 Collagenase (Santyl) 1 applic DAILY TOP Last administered on 09/05/16 09:33; Admin Dose 1 APPLIC; Start 08/17/16 at 09:00 Diphenhydramine HCl (Benadryl) 25 mg Q6H PRN IV ITCHING Last administered on 10:00; Admin Dose 25 MG; Start 08/22/16 at 12:00 Fluconazole (Diflucan) 100 mg DAILY NGT Last administered on 09/05/16 09:22; Admin Dose 100 MG; Start 08/24/16 at 09:00 Loratadine (Claritin) 10 mg DAILY PO Last administered on 09/05/16 09:22; Admin Dose 10 MG; Start 08/23/16 at 14:30 Insulin Glargine (Lantus) 10 unit HS SC Last administered on 09/04/16 20:52; Admin Dose 10 UNIT; Start 08/23/16 at 21:00 Hydroxyzine HCl (Atarax) 25 mg Q6H PRN PO ITCHING Last administered on 13:24; Admin Dose 25 MG; Start 08/26/16 at 21:00 Gentamicin Sulfate (Gentamicin 0.1% Oint) 1 applic DAILY TOP Last administered on 09/05/16 09:34; Admin Dose 1 APPLIC; Start 08/29/16 at 18:00 Diphenhydramine HCl (Benadryl) 25 mg BID IV Last administered on 09/05/16 09: 23; Admin Dose 25 MG; Start 09/01/16 at 11:00 Furosemide (Lasix) 40 mg DAILY IV Last administered on 09/05/16 09:22; Admin Dose 40 MG; Start 09/03/16 at 09:00 Insulin Human NPH (Humulin N) 10 unit AM SC Last administered on 09/05/16 09: 28; Admin Dose 10 UNIT; Start 09/03/16 at 09:00 Methimazole (Tapazole) 25 mg DAILY PO Last administered on 09/05/16 09:23; Admin Dose 25 MG; Start 09/03/16 at 09:00 Doxycycline Hyclate (Vibramycin) 100 mg BID PO Last administered on 09/05/16 09:22; Admin Dose 100 MG; Start 09/04/16 at 21:00 Pantoprazole Sodium (Protonix) 20 mg DAILY@06 PO Last administered on 05:33; Admin Dose 20 MG; Start 09/05/16 at 06:00 Prednisone (Prednisone) 10 mg DAILY PO Last administered on 09/05/16 09:22; Admin Dose 10 MG; Start 09/05/16 at 09:00 DEMAR VILLALOBOS NP Sep 05, 2016 15:36
== END 2016-09-05 18:50 | DRG 853 ==
LOC: E/R 13:49 → TEL 08-14 01:54 → PP2 08-21 20:39 → MS2 08-27 18:04
PROVIDERS: ADMIT Student in an Organized Health Care Education/Training Program; ATTEND Student in an Organized Health Care Education/Training Program
PROC: 0DB68ZX Excision of Stomach, Via Natural or Artificial Opening Endoscopic, Diagnostic (ICD-10-PCS; principal; 2016-08-14 12:00)
PROC: 02HV33Z Insertion of Infusion Device into Superior Vena Cava, Percutaneous Approach (ICD-10-PCS; 2016-08-16)
PROC: 30233N1 Transfusion of Nonautologous Red Blood Cells into Peripheral Vein, Percutaneous Approach (ICD-10-PCS; 2016-08-17)
PROC: 0KBW0ZZ Excision of Left Foot Muscle, Open Approach (ICD-10-PCS; 2016-08-20)
PROC: 0JBR0ZZ Excision of Left Foot Subcutaneous Tissue and Fascia, Open Approach (ICD-10-PCS; 2016-08-20)
PROC: 0MBT0ZZ Excision of Left Foot Bursa and Ligament, Open Approach (ICD-10-PCS; 2016-08-29)
DX: A41.02 Sepsis due to Methicillin resistant Staphylococcus aureus (principal); K22.6 Gastro-esophageal laceration-hemorrhage syndrome; E11.621 Type 2 diabetes mellitus with foot ulcer; E11.8 Type 2 diabetes mellitus with unspecified complications; I50.30 Unspecified diastolic (congestive) heart failure; D62 Acute posthemorrhagic anemia; I48.91 Unspecified atrial fibrillation; B37.9 Candidiasis, unspecified; L03.115 Cellulitis of right lower limb; N39.0 Urinary tract infection, site not specified; L03.116 Cellulitis of left lower limb; R65.20 Severe sepsis without septic shock; Z79.4 Long term (current) use of insulin; Z86.73 Personal history of transient ischemic attack (TIA), and cerebral infarction without residual deficits; K29.50 Unspecified chronic gastritis without bleeding; K29.80 Duodenitis without bleeding; K21.9 Gastro-esophageal reflux disease without esophagitis; F41.9 Anxiety disorder, unspecified; I73.9 Peripheral vascular disease, unspecified; B95.7 Other staphylococcus as the cause of diseases classified elsewhere; E05.90 Thyrotoxicosis, unspecified without thyrotoxic crisis or storm; R60.9 Edema, unspecified; B96.20 Unspecified Escherichia coli [E. coli] as the cause of diseases classified elsewhere; Z22.322 Carrier or suspected carrier of Methicillin resistant Staphylococcus aureus; D64.9 Anemia, unspecified; Z74.01 Bed confinement status; B96.4 Proteus (mirabilis) (morganii) as the cause of diseases classified elsewhere; B96.89 Other specified bacterial agents as the cause of diseases classified elsewhere; M85.871 Other specified disorders of bone density and structure, right ankle and foot; L89.622 Pressure ulcer of left heel, stage 2; L89.612 Pressure ulcer of right heel, stage 2
CPT/HCPCS: 36430; 36569; 70450; 71010; 73630; 76937; 80048; 80053; 80061; 80202; 81001; 81003; 82270; 82550; 82553; 82565; 82962; 83036; 83605; 83735; 84100; 84439; 84443; 84484; 84520; 85014; 85018; 85025; 85610; 85730; 86850; 86900; 86901; 86920; 87040; 87070; 87081; 87086; 87400; 88305; 88312; 93005; 93306; 93971; 94640; 94664; 97162; J1940; C9113; J0696; J0743; J1200; J1815; J2060; J2270; J2405; J2920; J3370; J3475; J3480; J7030; J7040; J7042; J7050; J7512; P9016

== ENCOUNTER 2016-10-21 04:33 | Inpatient (IN) | payer MEDICARE, OTHER ==
[2016-10-21] VITALS (9 sets, daily range): BP systolic 96–141; BP diastolic 56–66; PULSE 66–101; RESP 16–18; Ht 172.7 cm; Wt 61.9 kg
[~2016-10-21] VITALS: Ht 172.7 cm; Wt 61.9 kg
[~2016-10-21 04:33] MED LIST changes: +ACET-2047 PO; +AMLO5TAB4 PO; +ASCO500C7 PO; +ASPI-664 PO; +ATOR10TA65 PO; +BEN25 PO; +BISA-57 PO; +BUSP10TA2 PO; +CALC1TAB79 PO; +CARV12.598 PO; +CLON-379 PO; +CRAN425C PO; +DOCU-144 PO; +DOXY100T2 PO; +FLUC100T NGT; +GEN15OI1 TOP; +GLIP5TAB13 PO; +GUAI-637 PO; +LANT3I SC; +METF-382 PO; +MULTI PO; +MUPI22OI2 TOP; +MURO BOTH EYES; +NA P135E RC; +NIT4 SL; +NOVO3I SC; +ONDA-43 PO; +POLY15DR25 BOTH EYES; +SAN30GM TOP; +TRAM-40 PO; -VIGA LEFT EYE
[2016-10-21 05:21] LABS: ADD SCAN DIFF NO
[2016-10-21 05:24] LABS: BASOPHILS % 0.3 % (0.0-2.0); EOSINOPHILS % 0.6 % (0.0-7.0); HEMATOCRIT 35.5 % (37.0-47.0); HEMOGLOBIN 11.5 g/dl (12.0-16.0); LYMPHOCYTES # 2.4 10^3/ul (0.8-2.9); LYMPHOCYTES % 33.5 % (15.0-51.0); MEAN CORPUSCULAR HEMOGLOBIN 28.5 pg (29.0-33.0); MEAN CORPUSCULAR HGB CONC 32.4 g/dl (32.0-37.0); MEAN CORPUSCULAR VOLUME 87.9 fl (82.0-101.0); MEAN PLATELET VOLUME 10.3 fl (7.4-10.4); MONOCYTE # 0.5 10^3/ul (0.3-0.9); NEUTROPHIL # 4.2 10^3/ul (1.6-7.5); NEUTROPHILS % 58.2 % (39.0-77.0); PLATELET COUNT 336 10^3/UL (140-415); RED BLOOD COUNT 4.04 10^6/ul (4.20-5.40); WHITE BLOOD COUNT 7.2 10^3/ul (4.8-10.8)
[2016-10-21] MEDS ORDERED: LORAZEPAM 2 MG INJ IV PRN (05:30)
[2016-10-21] MEDS ORDERED: DOCUSATE SODIUM 100 MG CAP PO PRN (05:30)
[2016-10-21] MEDS ORDERED: ACETAMINOPHEN 325 MG TAB PO PRN ×2 (05:30→06:00)
[2016-10-21] MEDS ORDERED: NITROGLYCERIN (SL) 0.4 MG TAB SL PRN (05:30)
[2016-10-21] MEDS ORDERED: NA PHOSPHATE/BIPHOS 133 ML ENEMA PR PRN (05:30)
[2016-10-21] MEDS ORDERED: MAGNESIUM HYDROXIDE 30ML CUP PO PRN (05:30)
[2016-10-21] MEDS ORDERED: BISACODYL (EC) 5 MG TAB PO PRN (05:30)
[2016-10-21] MEDS ORDERED: DIPHENHYDRAMINE 25 MG CAP PO PRN (05:30)
[2016-10-21] MEDS ORDERED: ALBUTEROL/IPRATROPIUM (NEB) 3 ML AMP HHN PRN (05:30)
[2016-10-21] MEDS ORDERED: ONDANSETRON 4 MG INJ IV PRN ×2 (05:30→06:00)
[2016-10-21] MEDS ORDERED: DILTIAZEM-D5W 125MG/125ML DRIP 125 ML IV SCH (05:30)
[2016-10-21] MEDS ORDERED: hydrALAzine 20 MG INJ IV PRN (05:30)
[2016-10-21] MEDS ORDERED: NACL 0.9% 3 ML SYG IV SCH (05:30)
[2016-10-21] MEDS ORDERED: DILTIAZEM 25 MG INJ IV ONE (05:30)
[2016-10-21 05:33] LABS: INR 1.78; PARTIAL THROMBOPLASTIN TIME 37.7 Sec (25.0-35.0); PROTIME 20.9 Sec (12.2-14.2); PT RATIO 1.6
[2016-10-21 05:37] LABS: POTASSIUM 4.4 mmol/L (3.5-5.1)
[2016-10-21 05:39] LABS: CREATININE 0.81 mg/dl (0.44-1.00)
[2016-10-21 05:40] LABS: CALCIUM 8.4 mg/dl (8.4-10.2)
[2016-10-21] MEDS: PANTOPRAZOLE 40 MG INJ IV SCH (05:46)
--- NOTE | 2016-10-21 05:47 | ERA ---
ER Documentation Chief Complaint Date/Time DATE: 10/21/16 TIME: 05:42 Chief Complaint bib ra from [facility]. c/o buttock pain and states "chest pressure" HPI This is an 81-year-old female presents to the emergency room after being brought in by ambulance from her shelter facility for evaluation of body pain, and chest pain and pressure. The patient also states that she feels heart palpitations. She has mild shortness of breath and came to the ER for further evaluation. She denies any fevers, nausea, or vomiting at home. ROS All systems reviewed and are negative except as per history of present illness. Medications Home Meds Active Scripts Mupirocin* (Bactroban*) 2% -22 Gram Oint...g., 1 APPLIC TOP BID for 5 Days Prov:SOLO ENGLAND MD 09/05/16 Insulin Aspart* (Novolog Insulin Pen*) 100 Unit/Ml Soln, 0 UNIT SC WITH MEALS BEDTIME for 30 Days Prov:SLOO ENGLAND MD 09/05/16 Insulin Glargine* (Lantus*) 100 Unit/Ml Soln, 10 UNIT SC HS for 30 Days Prov:SOLO ENGLAND MD 09/05/16 Gentamicin Sulfate* (Gentamicin Sulfate* Oint) 0.1% - 15 Gm Oint, 1 APPLIC TOP DAILY for 30 Days Prov:SOLO ENGLAND MD 09/05/16 Fluconazole* (Diflucan*) 100 Mg Tablet, 100 MG NGT DAILY for 7 Days, TAB Prov:SOLO ENGLAND MD 09/05/16 Doxycycline* (Vibramycin*) 100 Mg Tab, 100 MG PO BID for 14 Days, TAB Prov:SOLO ENGLAND MD 09/05/16 Collagenase* (Santyl*) 30 Gm Oint..gm., 1 APPLIC TOP DAILY for 30 Days Prov:SOLO ENGLAND MD 09/05/16 Reported Medications Ascorbic Acid* (Vitamin C*) 500 Mg Capsule.sa, 500 MG PO DAILY, CAP 08/13/16 Ondansetron Hcl* (Zofran*) 4 Mg Tab, 4 MG PO Q4H Y for NAUSEA AND OR VOMITING, TAB 08/13/16 Calcium Carbonate/Vitamin D3 ([place]co 500+D Tablet) 1 Each Tablet, 1 EACH PO DAILY , TAB 08/13/16 Guaifenesin* (Robitussin*) 100 Mg/5 Ml Syrup, 200 MG PO Q4H Y for COUGH, ML 08/13/16 Tramadol Hcl* (Ultram*) 50 Mg Tablet, 50 MG PO Q4 Y for PAIN, TAB 08/13/16 Acetaminophen* (Acetaminophen*) 650 Mg Tablet, 650 MG PO Q4 Y for PAIN AND OR ELEVATED TEMP, #30 TAB 08/13/16 Amlodipine Besylate* (Norvasc*) 5 Mg Tablet, 5 MG PO DAILY, TAB 08/13/16 Nitroglycerin* (Nitrostat*) 0.4 Mg Tab.subl, 0.4 MG SL Q5MIN Y for CHEST PAIN, BOTTLE 08/13/16 Sodium Chloride* (Koffi-128*) 5%-15ml Opht, 1 DROP BOTH EYES TID, EA 08/13/16 Multivitamins* (Theragran*) 1 Tab Tab, 1 TAB PO DAILY, TAB 08/13/16 Metformin Hcl* (Metformin Hcl*) 500 Mg Tablet, 500 MG PO WITH MEALS, #30 TAB 08/13/16 Atorvastatin Calcium (Atorvastatin Calcium) 10 Mg Tablet, 10 MG PO QHS, #30 TAB 08/13/16 Insulin Glargine* (Lantus*) 100 Unit/Ml Soln, 30 UNIT SC QHS, #1 VIAL 08/13/16 Glipizide* (Glipizide*) 5 Mg Tablet, 5 MG PO AC BREAKFAST DINNER, TAB 08/13/16 Na Phos,M-B/Na Phos,Di-Ba (ENEMA READY TO USE) 135 Ml Enema, 135 ML RC PRN Y for CONSTIPATION, ENEMA 08/13/16 Bisacodyl* (Dulcolax*) 5 Mg Tablet.dr, 10 MG PO DAILY Y for CONSTIPATION, TAB 08/13/16 Cranberry Extract (Cranberry) 425 Mg Capsule, 425 MG PO DAILY, CAP 08/13/16 Polyvinyl Alcohol (Tears Again) 15 Ml Drops, 1 DRP BOTH EYES TID, BOTTLE 08/13/16 Aspirin (Low Dose Aspirin) 81 Mg Tablet.dr, 81 MG PO DAILY, #30 TAB 08/13/16 Diphenhydramine Hcl* (Benadryl*) 25 Mg Cap, 25 MG PO PRN Y for ITCHING, CAP 08/13/16 Buspirone Hcl* (Buspirone Hcl*) 10 Mg Tab, 10 MG PO MONWEDFRI, TAB AT BEDTIME 08/13/16 Clonidine Hcl* (Clonidine Hcl*) 0.1 Mg Tab, 0.1 MG PO Q8 Y for ELEVATED BLOOD PRESSURE, TAB GIVE IF SBP ABOVE 160 08/13/16 Docusate Sodium* (Colace*) 100 Mg Capsule, 200 MG PO QHS, #30 CAP 08/13/16 Carvedilol* (Coreg*) 12.5 Mg Tablet, 12.5 MG PO BID, #60 TAB 08/13/16 Allergies Allergies: Coded Allergies: Iodinated Contrast Media - Oral and (Verified Allergy, Unknown, 10/21/16) Penicillins (Verified Allergy, Unknown, 10/21/16) Sulfa (Sulfonamide Antibiotics) (Unverified Allergy, Unknown, 10/21/16) strawberry (Verified Allergy, Unknown, 10/21/16) PMhx/Soc History of Surgery: Yes (R FOOT SURGERY) Anesthesia Reaction: No Hx Neurological Disorder: No Hx Respiratory Disorders: No Hx Cardiac Disorders: Yes (HTN,AFIB) Hx Psychiatric Problems: No Hx Miscellaneous Medical Probl: Yes (pls see EMR) Hx Alcohol Use: No Hx Substance Use: No Hx Tobacco Use: No Smoking Status: Never smoker Physical Exam Vitals Vital Signs Date Time Temp Pulse Resp B/P Pulse Ox O2 Delivery O2 Flow Rate FiO2 10/21/16 05:03 Nasal Cannula 2 10/21/16 04:39 98.3 118 16 89/52 96 Physical Exam INITIAL VITAL SIGNS: Reviewed by me GENERAL: The patient is frail-appearing elderly female, no acute distress HEENT: Pupils equal, round, and reactive to light. EOMI. There is no scleral icterus. NECK: C-spine is soft and supple, there is no meningismus. There is no cervical lymphadenopathy. LUNGS: Diminished bilaterally HEART: Irregularly irregular rhythm ABDOMEN: Soft, non-tender, non-distended. There are bowel sounds in all four quadrants. No rebound or guarding. EXTREMITIES: There is no peripheral cyanosis or edema. No focal swelling or erythema. NEUROLOGICAL: The patient moves all four extremities with 5/5 strength. Cranial nerves II - XII are intact. Normal gait. Alert and oriented SKIN: There is no apparent rash or petechiae. HEME/LYMPHATIC: There is no evidence of excessive bruising or lymphedema. PSYCHIATRIC: The patient does not appear anxious or depressed. Result Diagram: 10/21/1610 10/21/16 0510 Results 24 hrs Laboratory Tests Test 10/21/16 05:10 Activated Partial Thromboplast Time 37.7Sec Anion Gap 16 B-Type Natriuretic Peptide Pending Basophils # 0.010^3/ul Basophils % 0.3% Blood Urea Nitrogen 23mg/dl Calcium Level 8.4mg/dl Carbon Dioxide Level 29mmol/L Chloride Level 96mmol/L Creatinine 0.81mg/dl Eosinophils # 0.010^3/ul Eosinophils % 0.6% Glucose Level 227mg/dl Hematocrit 35.5% Hemoglobin 11.5g/dl INR International Normalized Ratio 1.78 Lymphocytes # 2.410^3/ul Lymphocytes % 33.5% Mean Corpuscular Hemoglobin 28.5pg Mean Corpuscular Hemoglobin Concent 32.4g/dl Mean Corpuscular Volume 87.9fl Mean Platelet Volume 10.3fl Monocytes # 0.510^3/ul Monocytes % 7.0% Neutrophils # 4.210^3/ul Neutrophils % 58.2% Nucleated Red Blood Cells # 0.010^3/ul Nucleated Red Blood Cells % 0.0/100WBC Platelet Count 39149^3/UL Potassium Level 4.4mmol/L Prothrombin Time 20.9Sec Prothrombin Time Ratio 1.6 Red Blood Count 4.0410^6/ul Red Cell Distribution Width 16.0% Sodium Level 137mmol/L Troponin I Pending White Blood Count 7.210^3/ul Current Medications Medications (Trade) Dose Ordered Sig/Lauren Route PRN Reason Start Time Stop Time Status Last Admin Dose Admin Diltiazem HCl (Cardizem Iv) 5 mg ONCE ONCE IV 10/21/16 05:30 10/21/16 05:31 DC 10/21/16 05:34 IV Flush (NS 3 ml) 3 ml PER PROTOCOL IV 10/21/16 05:30 Ondansetron HCl (Zofran Inj) 4 mg Q6H PRN IV NAUSEA AND/OR VOMITING 10/21/16 05:30 Acetaminophen (Tylenol Tab) 650 mg Q6H PRN PO PAIN LEVEL 1-3 OR FEVER 10/21/16 05:30 Acetaminophen/ Hydrocodone Bitart ([place] (5/325)) 1 tab Q6H PRN PO MODERATE PAIN LEVEL 4-6 10/21/16 05:30 Morphine Sulfate (morphine) 2 mg Q4H PRN IV SEVERE PAIN LEVEL 7-10 10/21/16 05:30 Docusate Sodium (Colace) 100 mg Q12H PRN PO CONSTIPATION 10/21/16 05:30 UNV Magnesium Hydroxide (Milk Of Mag) 30 ml DAILY PRN PO CONSTIPATION 10/21/16 05:30 UNV Sodium Biphosphate/ Sodium Phosphate (Fleet Enema) 133 ml DAILY PRN ND CONSTIPATION 10/21/16 05:30 UNV Pantoprazole (Protonix Iv) 40 mg DAILY@06 IV 10/21/16 06:00 Lorazepam (Ativan) 0.5 mg Q6H PRN IV ANXIETY 10/21/16 05:30 Albuterol/ Ipratropium (Duoneb) 3 ml Q4H RESP THERAPY PRN HHN SHORTNESS OF BREATH 10/21/16 05:30 Hydralazine HCl (Apresoline) 10 mg Q6H PRN IV ELEVATED SYSTOLIC BP 10/21/16 05:30 Nitroglycerin (Nitroglycerin (Sl Tab) 0.4 Mg) 1 tab Q5M PRN SL ANGINA 10/21/16 05:30 Amlodipine Besylate (Norvasc) 5 mg DAILY PO 10/21/16 09:00 UNV Ascorbic Acid (Vitamin C) 500 mg DAILY PO 10/21/16 09:00 UNV Aspirin (Halfprin) 81 mg DAILY PO 10/21/16 09:00 UNV Atorvastatin Calcium (Lipitor) 10 mg QHS PO 10/21/16 21:00 UNV Bisacodyl (Dulcolax) 10 mg DAILY PRN PO CONSTIPATION 10/21/16 05:30 UNV Buspirone HCl (Buspar) 10 mg MONWEDFRI PO 10/23/16 09:00 UNV Carvedilol (Coreg) 12.5 mg BID PO 10/21/16 09:00 UNV Clonidine (Catapres) 0.1 mg Q8 PRN PO ELEVATED BLOOD PRESSURE 10/21/16 05:30 UNV Collagenase (Santyl) 1 applic DAILY TOP 10/21/16 09:00 UNV Diphenhydramine HCl (Benadryl) 25 mg PRN PRN PO ITCHING 10/21/16 05:30 UNV Docusate Sodium (Colace) 200 mg QHS PO 10/21/16 21:00 UNV Gentamicin Sulfate (Gentamicin 0.1% Oint) 1 applic DAILY TOP 10/21/16 09:00 UNV Guaifenesin (Robitussin Liquid Cup) 200 mg Q4H PRN PO COUGH 10/21/16 05:30 Insulin Aspart (Novolog Insulin Pen) WITH MEALS BEDTIME SC 10/21/16 08:00 UNV Insulin Glargine (Lantus) 30 unit QHS SC 10/21/16 21:00 UNV Multivitamins Therapeutic (Theragran) 1 tab DAILY PO 10/21/16 09:00 UNV Mupirocin (Bactroban) 1 applic BID TOP 10/21/16 09:00 UNV Sodium Chloride (Koffi-128 5%) 1 drop TID BOTH EYES 10/21/16 09:00 UNV Miscellaneous Information 425 mg 425 mg DAILY PO 10/21/16 09:00 UNV Diltiazem HCl (Cardizem-D5W 125 Mg/125 ml Drip) 125 ml @ 5 mls/hr TITRATE IV 10/21/16 05:30 Procedures/MDM EKG: Rate/Rhythm: Atrial fibrillation with rapid ventricular response QRS, ST, T-waves: ST-T wave abnormality Impression: Atrial fibrillation with rapid ventricular response EKG: Rate/Rhythm: Atrial fibrillation QRS, ST, T-waves: [No changes consistent w/ acute ischemia] Impression: Atrial fibrillation Chest X-ray 1V Interpreted by me: Soft Tissue: No acute abnormalities Bones: No acute abnormalities Mediastinum/Cardiac Silhouette/Lungs: [No acute abnormalities] This 81-year-old female presents to the emergency room for evaluation of chest pressure, and chest pain. When I evaluated this patient she has a heart rate of 122 bpm. Her rhythm was irregular and she was found to be in atrial fibrillation with rapid ventricular response. Patient had lab work drawn, and was given 5 mg of Cardizem IV and now has rate controlled atrial fibrillation. She states that her pain has improved. This patient is not hypoxic, and is hemodynamically stable. Given this patient's age and symptoms she will be placed in for admission at this time under the care of her panel physician, Dr. Borja Cardiac Critical Care: Excluding all billable procedures Time: 35 minutes Treatments/Evaluations: Close monitoring for dangerous arrhythmia and cardiovascular collapse, while treating with advance cardiac medications and techniques. Departure Diagnosis: Primary Impression: Atrial fibrillation with rapid ventricular response Additional Impressions: Chest pain Normocytic anemia Condition: Fair AMANDO JIMENEZ DO Oct 21, 2016 05:47
[2016-10-21 05:55] LABS: TROPONIN-I 0.027 ng/ml (0.00-0.12)
--- NOTE | 2016-10-21 06:40 | RADRPT ---
PROCEDURE: CHEST - 1 VIEW CLINICAL INDICATION: 81-year-old female with chest pain. TECHNIQUE: A single frontal AP semi-erect view of the chest was performed portably. The images we re reviewed on a PACS workstation. COMPARISON: None. FINDINGS: The cardiomediastinal silhouette is within normal limits. Chronic lung changes are present. There is no evidence for an infiltrate. There is no evidence for congestive heart failure. There is no ev idence for pneumothorax. Degenerative changes are seen within the upper thoracic spine. IMPRESSION: 1. Chronic lung changes. 2. Degenerative changes of the thoracic spine. .Reymundo Umanzor MD, MD Date Time Electronically viewed and signed by .Reymundo Umanzor MD, on 10/21/2016 06:39 .Snow/
[2016-10-21] MEDS ORDERED: DEXTROSE 50% 50 ML SYRINGE IV PRN ×2 (07:00)
[2016-10-21] MEDS ORDERED: GLUCAGON 1 MG INJ IM PRN (07:00)
[2016-10-21] MEDS ORDERED: GLUCOSE GEL 15 GRAM TUBE BUCCAL PRN (07:00)
[2016-10-21] MEDS ORDERED: GLUCOSE GEL 15 GRAM TUBE PO PRN ×2 (07:00)
[2016-10-21] MEDS ORDERED: INSULIN ASPART [NOVOLOG] 3 ML PEN SC SCH (08:00)
--- NOTE | 2016-10-21 08:12 | HP ---
DATE OF ADMISSION: 10/21/2016 CHIEF COMPLAINT: Chest pressure and atrial fibrillation with rapid ventricular rate. HISTORY OF PRESENT ILLNESS: An 81-year-old female with past medical history of GI bleed, Afib, hype rtension, type 2 diabetes, diastolic heart failure, peripheral vascular disease, prior sepsis with m ethicillin-resistant Staphylococcus aureus bacteremia, high cholesterol and bilateral heel pressure ulcers, who was sent in from [place] [facility] earlier today because of buttock pain and ches t pressure and palpitations. The patient has been having some mild chest pressure as well. The pat ient had some nausea symptoms as well but denied any vomiting symptoms. No upper or lower GI bleedi ng, no diarrhea, no constipation, no fevers or chills. She does complain of palpitations with some mild shortness of breath. When she came into the ER today, she was found with atrial fibrillation w ith RVR and was given a dose of Cardizem and is presently rate controlled. Patient was last here at our hospital from 08/14/2016 to 09/05/2016. At that time she was treated for upper GI bleed and al so had AFib with RVR at that time as well as sepsis with methicillin-resistant Staphylococcus aureus bacteremia at that time. PAST MEDICAL HISTORY: As stated above. ALLERGIES: IODINATED CONTRAST MATERIAL, PENICILLIN, SULFA ANTIBIOTICS, SULFA MEDICINES AND STRAWBER KAYLAH. HOME MEDICINES: 1. Benadryl 25 mg p.o. p.r.n. 2. Doxycycline 100 mg b.i.d. 3. Diflucan 100 mg daily. 4. Norvasc 5 mg daily. 5. Atorvastatin 10 mg at bedtime. 6. Coreg 12.5 mg b.i.d. 7. Clonidine 0.1 mg every 8 hours p.r.n. 8. Nitroglycerin 0.4 mg sublingual every 5 minutes p.r.n. 9. Tylenol 650 p.o. every 4 hours p.r.n. 10. Aspirin 81 mg daily. 11. Buspirone 10 mg every Sunday, Sunday, Sunday. 12. Ultram 50 mg every 4 hours p.r.n. 13. Calcium carbonate vitamin D3, one tab daily. 14. Robitussin 200 mg every 4 hours p.r.n. 15. Tears in both eyes t.i.d. 16. Koffi-128, 1 drop in both eyes t.i.d. 17. Dulcolax 10 mg daily p.r.n. 18. Colace 200 mg at bedtime. 19. Fleet's enema per rectum p.r.n. 20. Zofran 4 mg p.o. every 6 hours. p.r.n. 21. Glipizide 5 mg p.o. breakfast and dinner. 22. Aspart insulin subQ with meals. 23. Lantus 30 units subcutaneous at bedtime. 24. Metformin 500 mg p.o. with meals. 25. Santyl apply topically b.i.d. 26. Gentamicin ointment apply topically daily. 27. Bactroban apply topically b.i.d. 28. Vitamin C 500 mg daily. 29. Multivitamin 1 tab daily. 30. Cranberry 425 mg daily. PAST SURGICAL HISTORY: Right foot surgery in the past. SOCIAL HISTORY: Negative for smoking, drinking, or IV drug abuse. FAMILY HISTORY: Noncontributory. PHYSICAL EXAMINATION: VITAL SIGNS: T-max 98.3, pulse 118, respirations 16, blood pressure 89/52, saturating at 96% on 2 l iters nasal cannula. GENERAL: The patient is lying in bed, appears frail, but alert, pleasant, in no acute distress. HEENT: Pupils equal, round, react to light. Extraocular muscles intact. NECK: Supple, no thyromegaly. LUNGS: Slightly decreased breath sounds bilaterally. CARDIOVASCULAR: Irregularly irregular heart rate, rate controlled. No rubs or gallops. ABDOMEN: Soft, nontender, nondistended. Normal bowel sounds. No rebound or guarding. MUSCULOSKELETAL: No lower extremity edema bilaterally. NEUROLOGIC: No focal deficits. LABORATORIES: CBC is completely normal. Sodium 137, potassium 4.4, chloride 96, CO2 29, BUN 23, cr eatinine 0.8, glucose 227. BNP is 7240. Chest x-ray shows chronic lung changes, degenerative changes of the thoracic spine, no evidence of a ny CHF, no evidence of any infiltrate. ASSESSMENT AND PLAN: An 81-year-old female coming in with chest palpitations with signs of atrial f ibrillation with RVR. 1. Chest palpitations, irregular heart rate: Secondary most likely to atrial fibrillation with RVR , presently rate controlled. Will start a Cardizem drip, titrate to keep the systolic heart rate le ss than 100. Continue low-dose Coreg given the elevated BNP. There might be a component of mild co ngestive heart failure. Continue calcium channel sha cautiously. Check TSH, A1c, lipid panel. Tylenol p.r.n. pain and fevers. Monitor heart rate on telemetry floor. 2. Type 2 diabetes: Continue Lantus insulin and check an A1c. Continue sliding scale. 3. History of atrial fibrillation: Again, see #1. 4. History of GI bleed: No present issues. She is on aspirin for now. Continue cautiously. Tina tor for any signs of any bleeding. Hemoglobin is stable. 5. History of peripheral vascular disease: Continue to monitor for now. Get PT and OT consults. 6. History of high cholesterol: Monitor lipid levels. 7. History of bilateral pressure ulcers on the heels: Consider wound care consult and care. 8. Hypertension: Blood pressure is on the low normal side. Cautiously continue low-dose beta bloc ker and calcium channel sha, and monitor heart rate as well. 9. Gastrointestinal prophylaxis: PPI. 10. Deep venous thrombosis prophylaxis: Sequential compression devices. Dictated By: MANAV PRINCE Conf#: [id number] DID#: [id number]
[2016-10-21] MEDS: COLLAGENASE 30 GM TUBE TOP SCH (08:59)
[2016-10-21] MEDS ORDERED: NON-FORMULARY/PATIENT OWN MED (Cranberry Extract (Cranberry) 425 MG) PO SCH (09:00)
[2016-10-21] MEDS: GENTAMICIN 0.1% 15 GM OINT TOP SCH (09:00)
[2016-10-21] MEDS: AMLODIPINE 5 MG TAB PO SCH (09:01)
[2016-10-21] MEDS: ASPIRIN (EC) 81 MG TAB PO SCH (09:01)
[2016-10-21] MEDS: ASCORBIC ACID 500 MG TAB PO SCH (09:01)
[2016-10-21] MEDS: INSULIN ASPART [NOVOLOG] 3 ML PEN SC SCH ×4 (09:02→21:01)
[2016-10-21] MEDS: MUPIROCIN 2% 22 GM OINT TOP SCH ×2 (09:09→21:06)
[2016-10-21] MEDS: MULTIVITAMINS THERAPEUTIC TAB PO SCH (09:09)
[2016-10-21] MEDS: SODIUM CHLORIDE 5% 15ML OPH BOTH EYES SCH ×3 (09:13→21:07)
[2016-10-21 11:14] LABS: CREATINE KINASE 22 IU/L (23-200)
[2016-10-21 11:21] LABS: CK-MB 0.51 ng/ml (0.0-2.4)
[2016-10-21 11:28] LABS: TROPONIN-I < 0.012 ng/ml (0.00-0.12)
[2016-10-21] MEDS: morphine 2 MG INJ IV PRN ×3 (11:40→21:40)
--- NOTE | 2016-10-21 13:36 | QN ---
Documentation Comment An 81-year-old female coming in with Chest palpitations and irregular heart rate managed as follows 1. Chronic AFib with RVR : now rate controlled 2. Type 2 diabetes: A1c 9.8 in 08/22 3. Dyslipidemia 4. Mild acute CHF likely 2/2 #1 5. Peripheral vascular disease 6. Chronic Hypochromic anemia 7. Bilateral pressure ulcers on the heels: 8. Hypertension: Controlled 9. Therapeutic INR 10. History of GI bleed: No present issues on asa and no documentation of anticoagulation use PLAN: * Complete ACS rule out * repeat complete thyroid profile, this has been chronically abnormal, with Afib , will need endo consult * add iron and liver profile to regimen * f/u cardiology recs / speech therapy recs * Supportive care * Gastrointestinal prophylaxis: PPI. * Deep venous thrombosis prophylaxis: Sequential compression devices. KENNY TELLEZ Oct 21, 2016 13:36
[2016-10-21 16:54] LABS: CREATINE KINASE < 20 IU/L (23-200)
[2016-10-21 16:59] LABS: CK-MB 0.63 ng/ml (0.0-2.4)
[2016-10-21 17:06] LABS: TROPONIN-I < 0.012 ng/ml (0.00-0.12)
[2016-10-21 20:52] LABS: T3 UPTAKE 49.6 % (23.5-40.5)
[2016-10-21] MEDS: ATORVASTATIN 10 MG TAB PO SCH (20:54)
[2016-10-21] MEDS ORDERED: INSULIN GLARGINE [LANtus] 3 ML PEN SC SCH (21:00)
[2016-10-21] MEDS: DOCUSATE SODIUM 100 MG CAP PO SCH (21:02)
[2016-10-21] MEDS: HYDROCODONE/APAP (5/325) TAB PO PRN (21:06)
[2016-10-22] VITALS (12 sets, daily range): BP systolic 107–133; BP diastolic 52–61; PULSE 58–113; RESP 17–19
[2016-10-22] MEDS: PANTOPRAZOLE 40 MG INJ IV SCH (05:02)
[2016-10-22] MEDS: morphine 2 MG INJ IV PRN ×4 (06:22→18:52)
[2016-10-22 07:02] LABS: INR 1.42; PROTIME 17.4 Sec (12.2-14.2); PT RATIO 1.4
[2016-10-22 07:02] LABS: ALBUMIN 2.9 g/dl (3.3-4.9)
[2016-10-22 07:03] LABS: IRON 23 ug/dl (35-150); PARTIAL THROMBOPLASTIN TIME 37.8 Sec (25.0-35.0)
[2016-10-22 07:04] LABS: BILIRUBIN,INDIRECT 0.2 mg/dl (0-1.1); BILIRUBIN,TOTAL 0.2 mg/dl (0.2-1.3); TOTAL PROTEIN 6.3 g/dl (6.1-8.1)
[2016-10-22 07:05] LABS: CHOL/HDL RATIO 2.3 RATIO
[2016-10-22 07:13] LABS: TOTAL IRON BINDING CAPACITY 212 ug/dl (241-421)
[2016-10-22] MEDS: INSULIN ASPART [NOVOLOG] 3 ML PEN SC SCH ×5 (07:34→21:00)
[2016-10-22 08:38] LABS: ADD SCAN DIFF NO
[2016-10-22 08:43] LABS: POTASSIUM 4.2 mmol/L (3.5-5.1)
[2016-10-22 08:45] LABS: CREATININE 0.72 mg/dl (0.44-1.00)
[2016-10-22 08:46] LABS: MAGNESIUM 1.1 mg/dl (1.7-2.5)
[2016-10-22 08:47] LABS: BASOPHILS % 0.4 % (0.0-2.0); EOSINOPHILS # 0.2 10^3/ul (0.0-0.5); HEMATOCRIT 32.6 % (37.0-47.0); HEMOGLOBIN 10.7 g/dl (12.0-16.0); LYMPHOCYTES # 2.4 10^3/ul (0.8-2.9); LYMPHOCYTES % 29.2 % (15.0-51.0); MEAN CORPUSCULAR HEMOGLOBIN 28.8 pg (29.0-33.0); MEAN CORPUSCULAR HGB CONC 32.8 g/dl (32.0-37.0); MEAN CORPUSCULAR VOLUME 87.9 fl (82.0-101.0); MEAN PLATELET VOLUME 11.1 fl (7.4-10.4); MONOCYTE # 0.5 10^3/ul (0.3-0.9); MONOCYTES % 6.1 % (0.0-11.0); NEUTROPHILS % 61.9 % (39.0-77.0); PLATELET COUNT 274 10^3/UL (140-415); RED BLOOD COUNT 3.71 10^6/ul (4.20-5.40); RED CELL DISTRIBUTION WIDTH 15.9 % (11.5-14.5); WHITE BLOOD COUNT 8.1 10^3/ul (4.8-10.8)
[2016-10-22] MEDS: COLLAGENASE 30 GM TUBE TOP SCH (09:11)
[2016-10-22] MEDS: MUPIROCIN 2% 22 GM OINT TOP SCH ×2 (09:11→21:54)
[2016-10-22] MEDS: ASPIRIN (EC) 81 MG TAB PO SCH (09:12)
[2016-10-22] MEDS: ASCORBIC ACID 500 MG TAB PO SCH (09:12)
[2016-10-22] MEDS: MULTIVITAMINS THERAPEUTIC TAB PO SCH (09:12)
[2016-10-22] MEDS: AMLODIPINE 5 MG TAB PO SCH (09:12)
[2016-10-22] MEDS: GENTAMICIN 0.1% 15 GM OINT TOP SCH (09:12)
[2016-10-22] MEDS: SODIUM CHLORIDE 5% 15ML OPH BOTH EYES SCH ×3 (09:13→21:52)
--- NOTE | 2016-10-22 13:34 | PN ---
Date/Time of Note Date/Time of Note DATE: 10/22/16 TIME: 13:32 Assessment/Plan VTE Prophylaxis VTE Prophylaxis Intervention: SCD's VTE Contraindication Reason: blood coagulation disorder Lines/Catheters IV Catheter Type (from Nrs): Saline Lock Urinary Cath still in place: Yes Reason Cath still needed: other (indicate) Assessment/Plan Assessment/Plan An 81-year-old female coming in with Chest palpitations and irregular heart rate managed as follows 1. Chronic AFib with RVR : now rate controlled on Cardizem drip 2. Type 2 diabetes: A1c 7.2 3. Dyslipidemia 4. Mild acute CHF likely 2/2 #1 5. Peripheral vascular disease 6. Chronic Hypochromic anemia 7. Bilateral pressure ulcers on the heels and sacrum 8. Hypertension: Controlled 9. History of GI bleed: No present issues on asa and no documentation of anticoagulation use 10. UTI 11. Hyperthyroidism: likely contributing to #1 PLAN: * Commence empiric abx / f/u cultures * replace mag, keep >2.0 and K >4.0 * Cardiology consult * Endo consult for low TSH and DM mgt * Wound care * No anticoagulation based on chronic anemia with hx of GI bleed * Supportive care * Gastrointestinal prophylaxis: PPI. * Deep venous thrombosis prophylaxis: Sequential compression devices. Subjective 24 Hr Interval Summary Free Text/Dictation patient doesn't speak much looks slightly brighter today Nursing reports no acute overnight events. Exam/Review of Systems Vital Signs Vitals Vital Signs Date Time Temp Pulse Resp B/P Pulse Ox O2 Delivery O2 Flow Rate FiO2 10/22/16 12:01 113 10/22/16 11:56 97.7 18 117/55 97 10/22/16 08:00 Nasal Cannula 2.0 Intake and Output 10/21/16 10/21/16 10/22/16 15:00 23:00 07:00 Intake Total 300 ml 120 ml Output Total 400 ml 350 ml Balance -100 ml -230 ml Exam Constitutional: frail, obese (elederly) Head: normocephalic Eyes: PERRL, No icteric ENMT: mucosa pink and moist Respiratory: crackles/rales (coarse), diminished breath sounds Cardiovascular: irregular rhythm Gastrointestinal: bowel sounds, soft Extremities: No edema Neurological: lethargic Results Result Diagram: 10/22/16 0630 10/22/16 0630 Results 24 hrs Laboratory Tests Test 10/21/16 16:24 10/21/16 17:05 10/21/16 20:56 10/22/16 06:20 Creatine Kinase < 20 L Creatine Kinase Index Creatinine Kinase MB (Mass) 0.63 Troponin I < 0.012 Bedside Glucose 210 201 Alanine Aminotransferase (ALT/SGPT) 20 Albumin 2.9 L Alkaline Phosphatase 62 Aspartate Amino Transf (AST/SGOT) 19 Cholesterol Level 75 L Cholesterol/HDL Ratio 2.3 Direct Bilirubin 0.00 HDL Cholesterol 32 L Indirect Bilirubin 0.2 LDL Cholesterol, Calculated 30 Total Bilirubin 0.2 Total Protein 6.3 Triglycerides Level 65 Test 10/22/16 06:30 10/22/16 07:28 10/22/16 11:33 Activated Partial Thromboplast Time 37.8 H Anion Gap 14 Basophils # 0.0 Basophils % 0.4 Blood Urea Nitrogen 32 H Calcium Level 8.0 L Carbon Dioxide Level 27 Chloride Level 99 Creatinine 0.72 Eosinophils # 0.2 Eosinophils % 2.0 Glucose Level 151 Hematocrit 32.6 L Hemoglobin 10.7 L Hemoglobin A1c 7.2 H INR International Normalized Ratio 1.42 Iron Level 23 L Lymphocytes # 2.4 Lymphocytes % 29.2 Magnesium Level 1.1 L Mean Corpuscular Hemoglobin 28.8 L Mean Corpuscular Hemoglobin Concent 32.8 Mean Corpuscular Volume 87.9 Mean Platelet Volume 11.1 H Monocytes # 0.5 Monocytes % 6.1 Neutrophils # 5.0 Neutrophils % 61.9 Nucleated Red Blood Cells # 0.0 Nucleated Red Blood Cells % 0.0 Percent Iron Saturation 11 L Phosphorus Level 4.0 Platelet Count 274 Potassium Level 4.2 Prothrombin Time 17.4 H Prothrombin Time Ratio 1.4 Red Blood Count 3.71 L Red Cell Distribution Width 15.9 H Sodium Level 136 Thyroid Stimulating Hormone (TSH) 0.028 L Total Iron Binding Capacity 212 L White Blood Count 8.1 Bedside Glucose 190 316 H Medications Medications Current Medications Ondansetron HCl (Zofran Inj) 4 mg Q6H PRN IV NAUSEA AND/OR VOMITING; Start at 05:30 Acetaminophen (Tylenol Tab) 650 mg Q6H PRN PO PAIN LEVEL 1-3 OR FEVER; Start at 05:30 Acetaminophen/ Hydrocodone Bitart ([place] (5/325)) 1 tab Q6H PRN PO MODERATE PAIN LEVEL 4-6 Last administered on 10/21/16 21:06; Admin Dose 1 TAB; Start at 05:30 Morphine Sulfate (morphine) 2 mg Q4H PRN IV SEVERE PAIN LEVEL 7-10 Last administered on 10/22/16 07:33; Admin Dose 2 MG; Start 10/21/16 at 05:30 Docusate Sodium (Colace) 100 mg Q12H PRN PO CONSTIPATION; Start 10/21/16 at 05: 30 Magnesium Hydroxide (Milk Of Mag) 30 ml DAILY PRN PO CONSTIPATION; Start at 05:30 Sodium Biphosphate/ Sodium Phosphate (Fleet Enema) 133 ml DAILY PRN IN CONSTIPATION; Start 10/21/16 at 05:30 Pantoprazole (Protonix Iv) 40 mg DAILY@06 IV Last administered on 10/22/16 05: 02; Admin Dose 40 MG; Start 10/21/16 at 06:00 Lorazepam (Ativan) 0.5 mg Q6H PRN IV ANXIETY Last administered on 10/22/16 09: 12; Admin Dose 0.5 MG; Start 10/21/16 at 05:30 Hydralazine HCl (Apresoline) 10 mg Q6H PRN IV ELEVATED SYSTOLIC BP; Start 10/21 at 05:30 Nitroglycerin (Nitroglycerin (Sl Tab) 0.4 Mg) 1 tab Q5M PRN SL ANGINA; Start at 05:30 Amlodipine Besylate (Norvasc) 5 mg DAILY PO Last administered on 10/22/16 09: 12; Admin Dose 5 MG; Start 10/21/16 at 09:00 Ascorbic Acid (Vitamin C) 500 mg DAILY PO Last administered on 10/22/16 09:12 ; Admin Dose 500 MG; Start 10/21/16 at 09:00 Aspirin (Halfprin) 81 mg DAILY PO Last administered on 10/22/16 09:12; Admin Dose 81 MG; Start 10/21/16 at 09:00 Atorvastatin Calcium (Lipitor) 10 mg QHS PO Last administered on 10/21/16 20: 54; Admin Dose 10 MG; Start 10/21/16 at 21:00 Bisacodyl (Dulcolax) 10 mg DAILY PRN PO CONSTIPATION; Start 10/21/16 at 05:30 Buspirone HCl (Buspar) 10 mg MONWEDFRI PO ; Start 10/23/16 at 09:00 Clonidine (Catapres) 0.1 mg Q8 PRN PO ELEVATED BLOOD PRESSURE; Start 10/21/16 at 05:30 Collagenase (Santyl) 1 applic DAILY TOP Last administered on 10/22/16 09:11; Admin Dose 1 APPLIC; Start 10/21/16 at 09:00 Diphenhydramine HCl (Benadryl) 25 mg PRN PRN PO ITCHING; Start 10/21/16 at 05: 30 Docusate Sodium (Colace) 200 mg QHS PO Last administered on 10/21/16 21:02; Admin Dose 200 MG; Start 10/21/16 at 21:00 Gentamicin Sulfate (Gentamicin 0.1% Oint) 1 applic DAILY TOP Last administered on 10/22/16 09:12; Admin Dose 1 APPLIC; Start 10/21/16 at 09:00 Guaifenesin (Robitussin Liquid Cup) 200 mg Q4H PRN PO COUGH; Start 10/21/16 at 05:30 Insulin Glargine (Lantus) 30 unit QHS SC Last administered on 10/21/16 21:01; Admin Dose 30 UNIT; Start 10/21/16 at 21:00 Multivitamins Therapeutic (Theragran) 1 tab DAILY PO Last administered on 09:12; Admin Dose 1 TAB; Start 10/21/16 at 09:00 Mupirocin (Bactroban) 1 applic BID TOP Last administered on 10/22/16 09:11; Admin Dose 1 APPLIC; Start 10/21/16 at 09:00 Sodium Chloride 1 drop 1 drop TID BOTH EYES Last administered on 10/22/16 11: 58; Admin Dose 1 DROP; Start 10/21/16 at 09:00 Diltiazem HCl (Cardizem-D5W 125 Mg/125 ml Drip) 125 ml @ 5 mls/hr TITRATE IV ; Start 10/21/16 at 05:30 Miscellaneous Information 1 ea NOTE XX ; Start 10/21/16 at 07:00 Glucose (Glutose) 15 gm Q15M PRN PO DECREASED GLUCOSE; Start 10/21/16 at 07:00 Glucose (Glutose) 22.5 gm Q15M PRN PO DECREASED GLUCOSE; Start 10/21/16 at 07: 00 Dextrose (D50w Syringe) 25 ml Q15M PRN IV DECREASED GLUCOSE; Start 10/21/16 at 07:00 Dextrose (D50w Syringe) 50 ml Q15M PRN IV DECREASED GLUCOSE; Start 10/21/16 at 07:00 Glucagon (Glucagen) 1 mg Q15M PRN IM DECREASED GLUCOSE; Start 10/21/16 at 07:00 Glucose (Glutose) 15 gm Q15M PRN BUCCAL DECREASED GLUCOSE; Start 10/21/16 at 07 :00 Carvedilol 3.125 mg 3.125 mg BID PO Last administered on 10/22/16t 09:13; Admin Dose 3.125 MG; Start 10/21/16 at 09:00 Magnesium Sulfate 3 gm/Sodium Chloride 106 ml @ 35.333 mls/ hr ONCE ONCE IVPB ; Start 10/22/16 at 13:30; Stop 10/22/16 at 16:29; Status UNV Ferric Sodium Gluconate Complex/ Sodium Chloride (Ferrlecit/NS) 110 ml @ 110 mls/hr Q24H IVPB ; Start 10/22/16 at 13:30; Stop 10/26/16 at 14:29; Status UNV Procedures Procedures PROCEDURE: CHEST - 1 VIEW CLINICAL INDICATION: 81-year-old female with chest pain. TECHNIQUE: A single frontal AP semi-erect view of the chest was performed portably. The images were reviewed on a PACS workstation. COMPARISON: None. FINDINGS: The cardiomediastinal silhouette is within normal limits. Chronic lung changes are present. There is no evidence for an infiltrate. There is no evidence for congestive heart failure. There is no evidence for pneumothorax. Degenerative changes are seen within the upper thoracic spine. IMPRESSION: 1. Chronic lung changes. 2. Degenerative changes of the thoracic spine. .Reymundo Umanzor MD, MD Date Time Electronically viewed and signed by .Reymundo Umanzor MD, on 10/21/2016 06:39 .M/ CC: AMANDO JIMENEZ BOLATITO M. Oct 22, 2016 13:34
[2016-10-22] MEDS: SOD FERRIC GLUC COMPLX 125 MG in SOD CHLORIDE 0.9% 100 ML IVPB SCH (14:21)
--- NOTE | 2016-10-22 14:22 | CONS ---
Date/Time of Note Date/Time of Note DATE: 10/22/16 TIME: 14:13 Assessment/Plan Assessment/Plan Problems: (1) Hyperthyroidism Status: Chronic Comment: Causing A-fib. Change carvedilol to propranolol 20 mg qid and monitor. Restart methimazole 20 mg daily and monitor. DO NOT STOP ANTI- THYROID DRUGS. ONLY TITRATE DOWN INDICATED BY LEVELS. (2) Diabetes mellitus type 2 in obese Status: Chronic Comment: Decrease basal insulin (lantus) from 30 units to 14 units qhs and restart mealtime insulin with Novolog 7 units qac. Reeval tomorrow. Consultation Date/Type/Reason Admit Date/Time Oct 21, 2016 at 05:51 Date of Consultation: Oct 22, 2016 Type of Consultation: Endocrinology Reason for Consultation Thyrotoxicosis Referring Provider: KENNY TELLEZ Hx of Present Illness 81 y/o C F w/ h/o known thyrotoxicosis, and resulting A-fib, congestive heart failure, coronary artery disease, diabetes, high cholesterol, hypertension, and stage IV decubitus ulcers of coccyx. At her SNF pt. began to c/o palpitations and chest pressure and SOB. Pt. transferred to [facility] where she was found to be in A-fib w/ RVR. Of note, during last admit 2 months ago pt. was on methimazole and this was not continued on d/c. Constitutional: no complaints Eyes: no complaints ENT: no complaints Respiratory: no complaints Cardiovascular: palpitations Gastrointestinal: no complaints Genitourinary: no complaints Musculoskeletal: no complaints Neurologic: no complaints Past Medical History Medical History: congestive heart failure, coronary artery disease, diabetes, high cholesterol, hypertension, hyperthyroid, other (decubitus ulcer of coccyx) Past Surgical History Past Surgical Hx: other (R foot surgery) Family History Significant Family History: no pertinent family hx Social History [facility] Alcohol Use: none Smoking Status: Never smoker Drug Use: none Exam/Review of Systems Vital Signs Vitals VS - Last 72 Hours, by Label Date Time Temp Pulse Resp B/P Pulse Ox O2 Delivery O2 Flow Rate FiO2 10/22/16 12:01 113 10/22/16 11:56 97.7 104 18 117/55 97 10/22/16 08:00 106 10/22/16 08:00 Nasal Cannula 2.0 10/22/16 07:46 98.3 106 19 132/61 100 10/22/16 04:44 2.0 10/22/16 04:27 98.4 82 18 112/54 97 10/22/16 04:09 93 10/22/16 00:28 99 10/22/16 00:00 98.2 86 17 115/52 96 10/21/16 23:50 2.0 10/21/16 20:04 82 10/21/16 20:00 98.4 82 17 96/56 98 Nasal Cannula 2.0 10/21/16 20:00 Nasal Cannula 2.0 10/21/16 16:05 101 10/21/16 15:33 98.0 70 16 107/58 97 10/21/16 12:19 66 10/21/16 11:46 98.0 74 18 122/66 97 10/21/16 08:09 78 10/21/16 08:00 Nasal Cannula 2.0 10/21/16 07:37 97.9 84 18 141/63 98 10/21/16 07:09 97.7 78 18 119/56 99 Nasal Cannula 2.0 10/21/16 05:43 85 17 112/69 98 Nasal Cannula 2.0 10/21/16 05:03 Nasal Cannula 2 10/21/16 04:39 98.3 118 16 89/52 96 Vital Signs Date Time Temp Pulse Resp B/P Pulse Ox O2 Delivery O2 Flow Rate FiO2 10/22/16 12:01 113 10/22/16 11:56 97.7 18 117/55 97 10/22/16 08:00 Nasal Cannula 2.0 Intake and Output 10/21/16 10/21/16 10/22/16 15:00 23:00 07:00 Intake Total 300 ml 120 ml Output Total 400 ml 350 ml Balance -100 ml -230 ml Exam Constitutional: alert, frail, No oriented Psych: nl mood/affect, no complaints Eyes: EOMI, PERRL, nl conjunctiva, nl lids, nl sclera ENMT: mucosa pink and moist, nl external ears & nose Neck: non-tender, supple, No bruits, No masses, No thyromegaly Respiratory: clear to auscultation, normal air movement Cardiovascular: nl pulses, regular rate and rhythm, No edema, No murmurs/extra sounds, No rub Gastrointestinal: bowel sounds, nl liver, spleen, non-tender, soft, No mass, No rebound or guarding Musculoskeletal: nl extremities to inspection Extremities: normal pulses, No clubbing, No cyanosis, No edema 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, nl mental status, nl speech, nl strength Additional Comments Bedside Glucose - 72 Hours Test 10/21/16 08:19 10/21/16 11:34 10/21/16 17:05 10/21/16 20:56 Bedside Glucose 237mg/dL (70-220) H 176mg/dL (70-220) 210mg/dL (70-220) 201mg/dL (70-220) Test 10/22/16 07:28 10/22/16 11:33 Bedside Glucose 190mg/dL (70-220) 316mg/dL (70-220) H Results Result Diagram: 10/22/16 0630 10/22/16 0630 Results 24 hrs Laboratory Tests Test 10/21/16 16:24 10/21/16 17:05 10/21/16 20:56 10/22/16 06:20 Creatine Kinase < 20 L Creatine Kinase Index Creatinine Kinase MB (Mass) 0.63 Troponin I < 0.012 Bedside Glucose 210 201 Alanine Aminotransferase (ALT/SGPT) 20 Albumin 2.9 L Alkaline Phosphatase 62 Aspartate Amino Transf (AST/SGOT) 19 Cholesterol Level 75 L Cholesterol/HDL Ratio 2.3 Direct Bilirubin 0.00 HDL Cholesterol 32 L Indirect Bilirubin 0.2 LDL Cholesterol, Calculated 30 Total Bilirubin 0.2 Total Protein 6.3 Triglycerides Level 65 Test 10/22/16 06:30 10/22/16 07:28 10/22/16 11:33 Activated Partial Thromboplast Time 37.8 H Anion Gap 14 Basophils # 0.0 Basophils % 0.4 Blood Urea Nitrogen 32 H Calcium Level 8.0 L Carbon Dioxide Level 27 Chloride Level 99 Creatinine 0.72 Eosinophils # 0.2 Eosinophils % 2.0 Glucose Level 151 Hematocrit 32.6 L Hemoglobin 10.7 L Hemoglobin A1c 7.2 H INR International Normalized Ratio 1.42 Iron Level 23 L Lymphocytes # 2.4 Lymphocytes % 29.2 Magnesium Level 1.1 L Mean Corpuscular Hemoglobin 28.8 L Mean Corpuscular Hemoglobin Concent 32.8 Mean Corpuscular Volume 87.9 Mean Platelet Volume 11.1 H Monocytes # 0.5 Monocytes % 6.1 Neutrophils # 5.0 Neutrophils % 61.9 Nucleated Red Blood Cells # 0.0 Nucleated Red Blood Cells % 0.0 Percent Iron Saturation 11 L Phosphorus Level 4.0 Platelet Count 274 Potassium Level 4.2 Prothrombin Time 17.4 H Prothrombin Time Ratio 1.4 Red Blood Count 3.71 L Red Cell Distribution Width 15.9 H Sodium Level 136 Thyroid Stimulating Hormone (TSH) 0.028 L Total Iron Binding Capacity 212 L White Blood Count 8.1 Bedside Glucose 190 316 H Medications Medications Current Medications Ondansetron HCl (Zofran Inj) 4 mg Q6H PRN IV NAUSEA AND/OR VOMITING; Start at 05:30 Acetaminophen (Tylenol Tab) 650 mg Q6H PRN PO PAIN LEVEL 1-3 OR FEVER; Start at 05:30 Acetaminophen/ Hydrocodone Bitart ([place] (5/325)) 1 tab Q6H PRN PO MODERATE PAIN LEVEL 4-6 Last administered on 10/21/16 21:06; Admin Dose 1 TAB; Start at 05:30 Morphine Sulfate (morphine) 2 mg Q4H PRN IV SEVERE PAIN LEVEL 7-10 Last administered on 10/22/16 07:33; Admin Dose 2 MG; Start 10/21/16 at 05:30 Docusate Sodium (Colace) 100 mg Q12H PRN PO CONSTIPATION; Start 10/21/16 at 05: 30 Magnesium Hydroxide (Milk Of Mag) 30 ml DAILY PRN PO CONSTIPATION; Start at 05:30 Sodium Biphosphate/ Sodium Phosphate (Fleet Enema) 133 ml DAILY PRN [place] CONSTIPATION; Start 10/21/16 at 05:30 Pantoprazole (Protonix Iv) 40 mg DAILY@06 IV Last administered on 10/22/16 05: 02; Admin Dose 40 MG; Start 10/21/16 at 06:00 Lorazepam (Ativan) 0.5 mg Q6H PRN IV ANXIETY Last administered on 10/22/16 09: 12; Admin Dose 0.5 MG; Start 10/21/16 at 05:30 Hydralazine HCl (Apresoline) 10 mg Q6H PRN IV ELEVATED SYSTOLIC BP; Start 10/21 at 05:30 Nitroglycerin (Nitroglycerin (Sl Tab) 0.4 Mg) 1 tab Q5M PRN SL ANGINA; Start at 05:30 Amlodipine Besylate (Norvasc) 5 mg DAILY PO Last administered on 10/22/16 09: 12; Admin Dose 5 MG; Start 10/21/16 at 09:00 Ascorbic Acid (Vitamin C) 500 mg DAILY PO Last administered on 10/22/16 09:12 ; Admin Dose 500 MG; Start 10/21/16 at 09:00 Aspirin (Halfprin) 81 mg DAILY PO Last administered on 10/22/16 09:12; Admin Dose 81 MG; Start 10/21/16 at 09:00 Atorvastatin Calcium (Lipitor) 10 mg QHS PO Last administered on 10/21/16 20: 54; Admin Dose 10 MG; Start 10/21/16 at 21:00 Bisacodyl (Dulcolax) 10 mg DAILY PRN PO CONSTIPATION; Start 10/21/16 at 05:30 Buspirone HCl (Buspar) 10 mg MONWEDFRI PO ; Start 10/23/16 at 09:00 Clonidine (Catapres) 0.1 mg Q8 PRN PO ELEVATED BLOOD PRESSURE; Start 10/21/16 at 05:30 Collagenase (Santyl) 1 applic DAILY TOP Last administered on 10/22/16 09:11; Admin Dose 1 APPLIC; Start 10/21/16 at 09:00 Diphenhydramine HCl (Benadryl) 25 mg PRN PRN PO ITCHING; Start 10/21/16 at 05: 30 Docusate Sodium (Colace) 200 mg QHS PO Last administered on 10/21/16 21:02; Admin Dose 200 MG; Start 10/21/16 at 21:00 Gentamicin Sulfate (Gentamicin 0.1% Oint) 1 applic DAILY TOP Last administered on 10/22/16 09:12; Admin Dose 1 APPLIC; Start 10/21/16 at 09:00 Guaifenesin (Robitussin Liquid Cup) 200 mg Q4H PRN PO COUGH; Start 10/21/16 at 05:30 Multivitamins Therapeutic (Theragran) 1 tab DAILY PO Last administered on 09:12; Admin Dose 1 TAB; Start 10/21/16 at 09:00 Mupirocin (Bactroban) 1 applic BID TOP Last administered on 10/22/16 09:11; Admin Dose 1 APPLIC; Start 10/21/16 at 09:00 Sodium Chloride 1 drop 1 drop TID BOTH EYES Last administered on 10/22/16 11: 58; Admin Dose 1 DROP; Start 10/21/16 at 09:00 Diltiazem HCl (Cardizem-D5W 125 Mg/125 ml Drip) 125 ml @ 5 mls/hr TITRATE IV ; Start 10/21/16 at 05:30 Miscellaneous Information 1 ea NOTE XX ; Start 10/21/16 at 07:00 Glucose (Glutose) 15 gm Q15M PRN PO DECREASED GLUCOSE; Start 10/21/16 at 07:00 Glucose (Glutose) 22.5 gm Q15M PRN PO DECREASED GLUCOSE; Start 10/21/16 at 07: 00 Dextrose (D50w Syringe) 25 ml Q15M PRN IV DECREASED GLUCOSE; Start 10/21/16 at 07:00 Dextrose (D50w Syringe) 50 ml Q15M PRN IV DECREASED GLUCOSE; Start 10/21/16 at 07:00 Glucagon (Glucagen) 1 mg Q15M PRN IM DECREASED GLUCOSE; Start 10/21/16 at 07:00 Glucose 15 gm 15 gm Q15M PRN BUCCAL DECREASED GLUCOSE; Start 10/21/16 at 07:00 Magnesium Sulfate 3 gm/Sodium Chloride 106 ml @ 35.333 mls/ hr ONCE IVPB ; Start 10/22/16 at 15:00; Stop 10/22/16 at 17:59 Ferric Sodium Gluconate Complex/ Sodium Chloride (Ferrlecit/NS) 110 ml @ 110 mls/hr Q24H IVPB ; Start 10/22/16 at 15:00; Stop 10/26/16 at 15:59 Insulin Glargine (Lantus) 14 unit QHS SC ; Start 10/22/16 at 21:00; Status UNV Methimazole (Tapazole) 20 mg DAILY PO ; Start 10/22/16 at 14:30; Status UNV Propranolol HCl (Inderal) 20 mg QID PO ; Start 10/22/16 at 14:30; Status UNV JARRET SIGALA MD Oct 22, 2016 14:22
[2016-10-22] MEDS: GUAIFENESIN 20 MG/ML 5ML CUP PO PRN (14:26)
[2016-10-22 14:49] LABS: ADD UMIC YES; URINE BILIRUBIN (Dip) NEGATIVE (NEGATIVE); URINE BLOOD (Dip) 1+ (NEGATIVE); URINE COLOR LT. YELLOW (YELLOW); URINE GLUCOSE (Dip) NEGATIVE (NEGATIVE); URINE KETONES (Dip) TRACE (NEGATIVE); URINE LEUKOCYTE ESTERASE (Dip) 2+ (NEGATIVE); URINE NITRITE (Dip) NEGATIVE (NEGATIVE); URINE TOTAL PROTEIN (Dip) 1+ (NEGATIVE); URINE UROBILINOGEN (Dip) 1.0 E.U./dL (0.1-1.0)
[2016-10-22] MEDS ORDERED: MAGNESIUM SULFATE 3 GM in SOD CHLORIDE 0.9% 100 ML IVPB SCH (15:00)
[2016-10-22 16:05] LABS: BACTERIA,URINE MANY; TRANSITIONAL EPI CELLS,URINE MODERATE
[2016-10-22] MEDS: PROPRANOLOL 20 MG TAB PO SCH ×3 (17:14→21:54)
[2016-10-22] MEDS: METHIMAZOLE 5 MG TAB PO SCH (17:15)
[2016-10-22] MEDS: HYDROCODONE/APAP (5/325) TAB PO PRN (17:42)
[2016-10-22] MEDS: DOCUSATE SODIUM 100 MG CAP PO SCH (21:53)
[2016-10-22] MEDS: ATORVASTATIN 10 MG TAB PO SCH (21:53)
[2016-10-22] MEDS: APIXABAN 5 MG TABLET PO SCH (21:53)
[2016-10-22] MEDS: INSULIN GLARGINE [LANtus] 3 ML PEN SC SCH (21:59)
[2016-10-22] MEDS ORDERED: LEVOFLOXACIN 500MG/D5W (PMX) 100 ML IVPB SCH (23:00)
[2016-10-23] VITALS (12 sets, daily range): BP systolic 105–123; BP diastolic 52–60; PULSE 67–95; RESP 17–20
[2016-10-23] MEDS: morphine 2 MG INJ IV PRN ×2 (04:09→14:46)
[2016-10-23] MEDS: PANTOPRAZOLE 40 MG INJ IV SCH (05:34)
[2016-10-23] MEDS: INSULIN ASPART [NOVOLOG] 3 ML PEN SC SCH ×7 (07:30→20:20)
--- NOTE | 2016-10-23 07:35 | CONS ---
DATE OF ADMISSION: 10/21/2016 DATE OF CONSULTATION: CARDIOLOGY CONSULTATION REFERRING PHYSICIAN: Mayur Borja MD REASON FOR EVALUATION: Atrial fibrillation, hyperthyroidism HISTORY OF PRESENT ILLNESS: Ms. Leija is an 81-year-old woman with a history of thyrotoxicosis, history of atrial fibrillation, heart failure, history of coronary artery disease, diabetes, , stage IV decubitus ulcer from retirement who comes to the hospital now for evaluation of atrial fibrillation with rapid ventricular response. The patient appears to be hemodynamically stable kieran pite her atrial fibrillation. Her rate has remained modestly well controlled in the 90s. The patie nt is on thyrotoxicosis which is being treated by Dr. Louie. I think for now, conservative therapy is expected. The patient would not be a good a candidate for acute intervention. I think c onservative therapy is expected. We will continue to optimize the patient's fluid status. She rece ived which she tolerated well. We will address her anticoagulation as the patient's CHADS2 sc ore is greater than 1. Intraoperatively fully anticoagulated unless there is an absolute contraindi cation. PAST MEDICAL HISTORY: Hypertension, dyslipidemia, thyroid disease, thyrotoxicosis, history of palpi tations, history of coronary artery disease, history of stroke, hypertension, stage IV decubitus ulc er. ALLERGIES: NO KNOWN DRUG ALLERGIES. SOCIAL HISTORY: The patient does not smoke, does not drink, does not use drugs. FAMILY HISTORY: Negative for sudden cardiac , premature coronary artery disease. The patient lives in a retirement facility now. MEDICATIONS: 1. BuSpar 10 mg a day. 2. Insulin sliding scale. 3. Methimazole 20 mg p.o. 4. Propranolol 20 mg p.o. t.i.d. 5. Atorvastatin. 6. Docusate. 7. Amlodipine. 8. Aspirin 81 mg p.o. once a day. 9. Dextrose. 10. Pantoprazole. 11. Hydralazine. REVIEW OF SYSTEMS: GENERAL: No fevers, no chills, no recent weight loss. HEENT: No changes in vision or hearing. CARDIAC: Tachycardic described. RESPIRATORY: shortness of breath. GASTROINTESTINAL: No nausea, vomiting, diarrhea, constipation. GENITOURINARY: No dysuria, hematuria. NEUROLOGIC: Dementia. PSYCHIATRIC: No known history of psychiatric disease. PHYSICAL EXAMINATION: VITAL SIGNS: Temperature is 98.5, heart rate is 92, blood pressure is 132/61. GENERAL: She is a thin woman in no acute distress, alert and oriented x0, not really aware of her c ondition. HEAD: Normocephalic, atraumatic. Eyes anicteric. NECK: Supple. JVD 6-7 cm. HEART: Irregularly irregular with soft holosystolic murmur at the base. PMI is nondisplaced. Ther e is no S3. LUNGS: Coarse at bases. ABDOMEN: Soft, bowel sounds are present. There is no hepatosplenomegaly. GENITOURINARY: Grossly intact. EXTREMITIES: There is no clubbing, cyanosis of the lower extremities. Decubitus is noted. LABORATORY DATA: White blood cell count is 8.1, hemoglobin is 10.7, platelets 274. INR is 1.42. C reatinine 0.72. ECG read by me shows atrial fibrillation with variable rate under 100. ASSESSMENT AND PLAN: 1. Atrial fibrillation. The patient has atrial fibrillation. This is in the setting of thyrotoxic osis, Dr. Louie follows. Continue to monitor the patient closely. 2. Secondary hypercoagulable state. The patient's CHADS2 score is greater than 1. She will have t o be fully anticoagulated unless there is absolute contraindication. Will discuss with primary team and if needed, we will add anticoagulation agent. The patient is on aspirin 81 now. I think it wo uld be reasonable to consider Eliquis 5 mg p.o. twice a day unless there is a contraindication. 3. Coronary artery disease, no chest pain reported, continue medical optimization and care. 4. Chest pain. The patient had 2 set of troponins which were negative at 0.012. 5. Thyrotoxicosis. Continue to treat per endocrinology team. I would like to thank Dr. Borja and Dr. Louie, for referring this patient for my evaluation. Dictated By: IMTIAZ NEVAREZ MD ML/NTS Conf#: [id number] DID#: [id number]
[2016-10-23] MEDS: PROPRANOLOL 20 MG TAB PO SCH (09:13)
[2016-10-23] MEDS: MULTIVITAMINS THERAPEUTIC TAB PO SCH (09:13)
[2016-10-23] MEDS: ASPIRIN (EC) 81 MG TAB PO SCH (09:13)
[2016-10-23] MEDS: AMLODIPINE 5 MG TAB PO SCH (09:14)
[2016-10-23] MEDS: MUPIROCIN 2% 22 GM OINT TOP SCH ×2 (09:14→20:21)
[2016-10-23] MEDS: ASCORBIC ACID 500 MG TAB PO SCH (09:14)
[2016-10-23] MEDS: METHIMAZOLE 5 MG TAB PO SCH (09:14)
[2016-10-23] MEDS: GENTAMICIN 0.1% 15 GM OINT TOP SCH (09:14)
[2016-10-23] MEDS: APIXABAN 5 MG TABLET PO SCH ×2 (09:14→20:19)
[2016-10-23] MEDS: BUSPIRONE 10 MG TAB PO SCH (09:14)
[2016-10-23] MEDS: COLLAGENASE 30 GM TUBE TOP SCH (09:15)
[2016-10-23] MEDS: GUAIFENESIN 20 MG/ML 5ML CUP PO PRN (09:32)
[2016-10-23] MEDS: SODIUM CHLORIDE 5% 15ML OPH BOTH EYES SCH ×3 (10:26→20:23)
--- NOTE | 2016-10-23 10:57 | CONS ---
Date/Time of Note Date/Time of Note DATE: 10/23/16 TIME: 10:53 Assessment/Plan Assessment/Plan Problems: (1) Iron deficiency anemia Status: Chronic Comment: Patient is receiving parenteral replacement for maximum efficiency Qualifiers: Iron deficiency anemia type: unspecified iron deficiency Qualified Code: D50.9 - Iron deficiency anemia, unspecified iron deficiency anemia type (2) Hyperthyroidism Status: Chronic Comment: As per intake consult. Given severity of end organ effects will give one day high dose ptu to accelerate reduction in hormone. She should be on mcc treatment as an outpatient with dose adjustments based on the labs. (3) Diabetes mellitus type 2 in obese Status: Chronic Comment: fair control Consultation Date/Type/Reason Admit Date/Time Oct 21, 2016 at 05:51 Initial Consult Date 10/22/16 Type of Consultation: Endocrinology Reason for Consultation Thyrotoxicosis; DM2: etc Referring Provider: KENNY TELLEZ 24 HR Interval Summary Constitutional: no complaints Detailed Summary Eyes: no complaints Respiratory: no complaints Cardiovascular: palpitations Gastrointestinal: no complaints Neurologic: other (tremor) Exam/Review of Systems Vital Signs Vitals Vital Signs Date Time Temp Pulse Resp B/P Pulse Ox O2 Delivery O2 Flow Rate FiO2 10/23/16 08:23 77 10/23/16 07:52 98.0 20 110/59 96 10/22/16 20:00 Nasal Cannula 2.0 Intake and Output 10/22/16 10/22/16 10/23/16 15:00 23:00 07:00 Intake Total 100 ml 650 ml 120 ml Output Total 220 ml 350 ml Balance 100 ml 430 ml -230 ml Exam Constitutional: alert Neck: non-tender, supple Respiratory: clear to auscultation, normal air movement Cardiovascular: irregular rhythm Results Result Diagram: 10/22/16 0630 10/22/16 0630 Results 24 hrs Laboratory Tests Test 10/22/16 11:33 10/22/16 13:40 10/22/16 17:17 10/22/16 21:37 Bedside Glucose 316 H 244 H 103 Urine Bacteria MANY Urine Bilirubin NEGATIVE Urine Clarity CLOUDY Urine Color LT. YELLOW Urine Glucose NEGATIVE Urine Hemoglobin 1+ H Urine Ketones TRACE H Urine Leukocyte Esterase 2+ H Urine Microscopic RBC 2-5 Urine Microscopic WBC >200 Urine Nitrite NEGATIVE Urine Specific [place] 1.025 Urine Total Protein 1+ H Urine Transitional Epithelial Cells MODERATE Urine Urobilinogen 1.0 E.U./dL Urine Yeast MANY Urine pH 5.5 Test 10/23/16 08:29 Bedside Glucose 135 Medications Medications Current Medications Ondansetron HCl (Zofran Inj) 4 mg Q6H PRN IV NAUSEA AND/OR VOMITING Last administered on 10/23/16 10:24; Admin Dose 4 MG; Start 10/21/16 at 05:30 Acetaminophen (Tylenol Tab) 650 mg Q6H PRN PO PAIN LEVEL 1-3 OR FEVER; Start at 05:30 Acetaminophen/ Hydrocodone Bitart ([employer] (5/325)) 1 tab Q6H PRN PO MODERATE PAIN LEVEL 4-6 Last administered on 10/22/16 17:42; Admin Dose 1 TAB; Start at 05:30 Morphine Sulfate (morphine) 2 mg Q4H PRN IV SEVERE PAIN LEVEL 7-10 Last administered on 10/23/16 04:09; Admin Dose 2 MG; Start 10/21/16 at 05:30 Docusate Sodium (Colace) 100 mg Q12H PRN PO CONSTIPATION; Start 10/21/16 at 05: 30 Magnesium Hydroxide (Milk Of Mag) 30 ml DAILY PRN PO CONSTIPATION; Start at 05:30 Sodium Biphosphate/ Sodium Phosphate (Fleet Enema) 133 ml DAILY PRN [place] CONSTIPATION; Start 10/21/16 at 05:30 Pantoprazole (Protonix Iv) 40 mg DAILY@06 IV Last administered on 10/23/16 05: 34; Admin Dose 40 MG; Start 10/21/16 at 06:00 Lorazepam (Ativan) 0.5 mg Q6H PRN IV ANXIETY Last administered on 10/22/16 09: 12; Admin Dose 0.5 MG; Start 10/21/16 at 05:30 Hydralazine HCl (Apresoline) 10 mg Q6H PRN IV ELEVATED SYSTOLIC BP; Start 10/21 at 05:30 Nitroglycerin (Nitroglycerin (Sl Tab) 0.4 Mg) 1 tab Q5M PRN SL ANGINA; Start at 05:30 Amlodipine Besylate (Norvasc) 5 mg DAILY PO Last administered on 10/23/16 09: 14; Admin Dose 5 MG; Start 10/21/16 at 09:00 Ascorbic Acid (Vitamin C) 500 mg DAILY PO Last administered on 10/23/16 09:14 ; Admin Dose 500 MG; Start 10/21/16 at 09:00 Aspirin (Halfprin) 81 mg DAILY PO Last administered on 10/23/16 09:13; Admin Dose 81 MG; Start 10/21/16 at 09:00 Atorvastatin Calcium (Lipitor) 10 mg QHS PO Last administered on 10/22/16 21: 53; Admin Dose 10 MG; Start 10/21/16 at 21:00 Bisacodyl (Dulcolax) 10 mg DAILY PRN PO CONSTIPATION; Start 10/21/16 at 05:30 Buspirone HCl (Buspar) 10 mg MONWEDFRI PO Last administered on 10/23/16 09:14 ; Admin Dose 10 MG; Start 10/23/16 at 09:00 Clonidine (Catapres) 0.1 mg Q8 PRN PO ELEVATED BLOOD PRESSURE; Start 10/21/16 at 05:30 Collagenase (Santyl) 1 applic DAILY TOP Last administered on 10/23/16 09:15; Admin Dose 1 APPLIC; Start 10/21/16 at 09:00 Diphenhydramine HCl (Benadryl) 25 mg PRN PRN PO ITCHING; Start 10/21/16 at 05: 30 Docusate Sodium (Colace) 200 mg QHS PO Last administered on 10/22/16 21:53; Admin Dose 200 MG; Start 10/21/16 at 21:00 Gentamicin Sulfate (Gentamicin 0.1% Oint) 1 applic DAILY TOP Last administered on 10/23/16 09:14; Admin Dose 1 APPLIC; Start 10/21/16 at 09:00 Guaifenesin (Robitussin Liquid Cup) 200 mg Q4H PRN PO COUGH Last administered on 10/23/16 09:32; Admin Dose 200 MG; Start 10/21/16 at 05:30 Multivitamins Therapeutic (Theragran) 1 tab DAILY PO Last administered on 09:13; Admin Dose 1 TAB; Start 10/21/16 at 09:00 Mupirocin (Bactroban) 1 applic BID TOP Last administered on 10/23/16 09:14; Admin Dose 1 APPLIC; Start 10/21/16 at 09:00 Sodium Chloride (Koffi-128 5%) 1 drop TID BOTH EYES Last administered on 10:26; Admin Dose 1 DROP; Start 10/21/16 at 09:00 Miscellaneous Information 1 ea NOTE XX ; Start 10/21/16 at 07:00 Glucose (Glutose) 15 gm Q15M PRN PO DECREASED GLUCOSE; Start 10/21/16 at 07:00 Glucose (Glutose) 22.5 gm Q15M PRN PO DECREASED GLUCOSE; Start 10/21/16 at 07: 00 Dextrose (D50w Syringe) 25 ml Q15M PRN IV DECREASED GLUCOSE; Start 10/21/16 at 07:00 Dextrose (D50w Syringe) 50 ml Q15M PRN IV DECREASED GLUCOSE; Start 10/21/16 at 07:00 Glucagon (Glucagen) 1 mg Q15M PRN IM DECREASED GLUCOSE; Start 10/21/16 at 07:00 Glucose 15 gm 15 gm Q15M PRN BUCCAL DECREASED GLUCOSE; Start 10/21/16 at 07:00 Ferric Sodium Gluconate Complex/ Sodium Chloride (Ferrlecit/NS) 110 ml @ 110 mls/hr Q24H IVPB Last administered on 10/22/16 14:21; Admin Dose 110 MLS/HR; Start 10/22/16 at 15:00; Stop 10/26/16 at 15:59 Insulin Glargine (Lantus) 14 unit QHS SC Last administered on 10/22/16 21:59; Admin Dose 14 UNIT; Start 10/22/16 at 21:00 Methimazole (Tapazole) 20 mg DAILY PO Last administered on 10/23/16 09:14; Admin Dose 20 MG; Start 10/22/16 at 14:30 Propranolol HCl (Inderal) 20 mg QID PO Last administered on 10/23/16 09:13; Admin Dose 20 MG; Start 10/22/16 at 14:30 Apixaban 5 mg 5 mg BID PO Last administered on 10/23/16 09:14; Admin Dose 5 MG ; Start 10/22/16 at 21:00 Levofloxacin/ Dextrose (Levaquin 500mg/ D5W 100 ml (Pmx)) 100 ml @ 100 mls/hr Q24H IVPB Last administered on 3/19/17at 23:12; Admin Dose 100 MLS/HR; Start at 23:00 MINNIE GILES MD Oct 23, 2016 10:56
--- NOTE | 2016-10-23 11:34 | PN ---
Date/Time of Note Date/Time of Note DATE: 10/23/16 TIME: 11:27 Assessment/Plan VTE Prophylaxis VTE Prophylaxis Intervention: other (eliquis) Lines/Catheters IV Catheter Type (from Nrs): [place] Urinary Cath still in place: Yes Assessment/Plan Chief Complaint/Hosp Course A/P 1) A Fib w RVR; stable, on rt control w coreg; eliquis as well 2) CP; no acs; cont medical management; dc asa? 3) Hyperthyroidism; presently on medical therapy 4) Low Mag 5) Ftt; dc back to [facility] tomorrow 6) IV Decubitus; cont wound care 7) Dm/Htn 8) Ho stroke; 9) Ac bronchitis; adjust medical management 10) Ho mrsa bacteremia 11) Ho GI Bleed/duodenitis/gastritis/ M-W tear ~08/15/16; cont to monitor. will dc eliquis if hb drops 12) CAD? Problems: Subjective 24 Hr Interval Summary Free Text/Dictation no chest pain. +cough, constipation. sat up in bed yesterday. eating ok. Exam/Review of Systems Vital Signs Vitals Vital Signs Date Time Temp Pulse Resp B/P Pulse Ox O2 Delivery O2 Flow Rate FiO2 10/23/16 08:23 77 10/23/16 07:52 98.0 20 110/59 96 10/22/16 20:00 Nasal Cannula 2.0 Intake and Output 10/22/16 10/22/16 10/23/16 15:00 23:00 07:00 Intake Total 100 ml 650 ml 120 ml Output Total 220 ml 350 ml Balance 100 ml 430 ml -230 ml Exam Constitutional: alert Respiratory: diminished breath sounds Cardiovascular: irregular rhythm Gastrointestinal: soft (mild lower abd tenderness. no r/r/g) Extremities: other (no edema) Results Result Diagram: 10/22/16 0630 10/22/16 0630 Results 24 hrs Laboratory Tests Test 10/22/16 11:33 10/22/16 13:40 10/22/16 17:17 10/22/16 21:37 Bedside Glucose 316 H 244 H 103 Urine Bacteria MANY Urine Bilirubin NEGATIVE Urine Clarity CLOUDY Urine Color LT. YELLOW Urine Glucose NEGATIVE Urine Hemoglobin 1+ H Urine Ketones TRACE H Urine Leukocyte Esterase 2+ H Urine Microscopic RBC 2-5 Urine Microscopic WBC >200 Urine Nitrite NEGATIVE Urine Specific [place] 1.025 Urine Total Protein 1+ H Urine Transitional Epithelial Cells MODERATE Urine Urobilinogen 1.0 E.U./dL Urine Yeast MANY Urine pH 5.5 Test 10/23/16 08:29 Bedside Glucose 135 Medications Medications Current Medications Ondansetron HCl (Zofran Inj) 4 mg Q6H PRN IV NAUSEA AND/OR VOMITING Last administered on 10/23/16 10:24; Admin Dose 4 MG; Start 10/21/16 at 05:30 Acetaminophen (Tylenol Tab) 650 mg Q6H PRN PO PAIN LEVEL 1-3 OR FEVER; Start at 05:30 Acetaminophen/ Hydrocodone Bitart ([place] (5/325)) 1 tab Q6H PRN PO MODERATE PAIN LEVEL 4-6 Last administered on 10/22/16 17:42; Admin Dose 1 TAB; Start at 05:30 Morphine Sulfate (morphine) 2 mg Q4H PRN IV SEVERE PAIN LEVEL 7-10 Last administered on 10/23/16 04:09; Admin Dose 2 MG; Start 10/21/16 at 05:30 Magnesium Hydroxide (Milk Of Mag) 30 ml DAILY PRN PO CONSTIPATION; Start at 05:30 Sodium Biphosphate/ Sodium Phosphate (Fleet Enema) 133 ml DAILY PRN [place] CONSTIPATION; Start 10/21/16 at 05:30 Lorazepam (Ativan) 0.5 mg Q6H PRN IV ANXIETY Last administered on 10/22/16 09: 12; Admin Dose 0.5 MG; Start 10/21/16 at 05:30 Hydralazine HCl (Apresoline) 10 mg Q6H PRN IV ELEVATED SYSTOLIC BP; Start 10/21 at 05:30 Nitroglycerin (Nitroglycerin (Sl Tab) 0.4 Mg) 1 tab Q5M PRN SL ANGINA; Start at 05:30 Amlodipine Besylate (Norvasc) 5 mg DAILY PO Last administered on 10/23/16 09: 14; Admin Dose 5 MG; Start 10/21/16 at 09:00 Ascorbic Acid (Vitamin C) 500 mg DAILY PO Last administered on 10/23/16 09:14 ; Admin Dose 500 MG; Start 10/21/16 at 09:00 Aspirin (Halfprin) 81 mg DAILY PO Last administered on 10/23/16 09:13; Admin Dose 81 MG; Start 10/21/16 at 09:00 Atorvastatin Calcium (Lipitor) 10 mg QHS PO Last administered on 10/22/16 21: 53; Admin Dose 10 MG; Start 10/21/16 at 21:00 Bisacodyl (Dulcolax) 10 mg DAILY PRN PO CONSTIPATION; Start 10/21/16 at 05:30 Buspirone HCl (Buspar) 10 mg MONWEDFRI PO Last administered on 10/23/16 09:14 ; Admin Dose 10 MG; Start 10/23/16 at 09:00 Clonidine (Catapres) 0.1 mg Q8 PRN PO ELEVATED BLOOD PRESSURE; Start 10/21/16 at 05:30 Collagenase (Santyl) 1 applic DAILY TOP Last administered on 10/23/16 09:15; Admin Dose 1 APPLIC; Start 10/21/16 at 09:00 Diphenhydramine HCl (Benadryl) 25 mg PRN PRN PO ITCHING; Start 10/21/16 at 05: 30 Docusate Sodium (Colace) 200 mg QHS PO Last administered on 10/22/16 21:53; Admin Dose 200 MG; Start 10/21/16 at 21:00 Gentamicin Sulfate (Gentamicin 0.1% Oint) 1 applic DAILY TOP Last administered on 10/23/16 09:14; Admin Dose 1 APPLIC; Start 10/21/16 at 09:00 Guaifenesin (Robitussin Liquid Cup) 200 mg Q4H PRN PO COUGH Last administered on 10/23/16 09:32; Admin Dose 200 MG; Start 10/21/16 at 05:30 Multivitamins Therapeutic (Theragran) 1 tab DAILY PO Last administered on 09:13; Admin Dose 1 TAB; Start 10/21/16 at 09:00 Mupirocin (Bactroban) 1 applic BID TOP Last administered on 10/23/16 09:14; Admin Dose 1 APPLIC; Start 10/21/16 at 09:00 Sodium Chloride (Koffi-128 5%) 1 drop TID BOTH EYES Last administered on 10:26; Admin Dose 1 DROP; Start 10/21/16 at 09:00 Miscellaneous Information 1 ea NOTE XX ; Start 10/21/16 at 07:00 Glucose (Glutose) 15 gm Q15M PRN PO DECREASED GLUCOSE; Start 10/21/16 at 07:00 Glucose (Glutose) 22.5 gm Q15M PRN PO DECREASED GLUCOSE; Start 10/21/16 at 07: 00 Dextrose (D50w Syringe) 25 ml Q15M PRN IV DECREASED GLUCOSE; Start 10/21/16 at 07:00 Dextrose (D50w Syringe) 50 ml Q15M PRN IV DECREASED GLUCOSE; Start 10/21/16 at 07:00 Glucagon (Glucagen) 1 mg Q15M PRN IM DECREASED GLUCOSE; Start 10/21/16 at 07:00 Glucose 15 gm 15 gm Q15M PRN BUCCAL DECREASED GLUCOSE; Start 10/21/16 at 07:00 Ferric Sodium Gluconate Complex/ Sodium Chloride (Ferrlecit/NS) 110 ml @ 110 mls/hr Q24H IVPB Last administered on 10/22/16 14:21; Admin Dose 110 MLS/HR; Start 10/22/16 at 15:00; Stop 10/26/16 at 15:59 Insulin Glargine (Lantus) 14 unit QHS SC Last administered on 10/22/16 21:59; Admin Dose 14 UNIT; Start 10/22/16 at 21:00 Methimazole (Tapazole) 20 mg DAILY PO Last administered on 10/23/16 09:14; Admin Dose 20 MG; Start 10/22/16 at 14:30 Apixaban (Eliquis) 5 mg BID PO Last administered on 10/23/16 09:14; Admin Dose 5 MG; Start 10/22/16 at 21:00 Propylthiouracil (Ptu) 200 mg TID PO ; Start 10/23/16 at 13:00; Stop 10/24/16 at 12:59 Carvedilol (Coreg) 6.25 mg BID PO ; Start 10/23/16 at 11:00 Prednisone (Prednisone) 60 mg DAILY PO ; Start 10/23/16 at 11:30; Status UNV Guaifenesin/ Dextromethorphan (Robitussin Dm Liquid Cup) 10 ml Q4H PRN PO COUGH ; Start 10/23/16 at 11:30; Status UNV Pantoprazole (Protonix Tab) 40 mg DAILY@06 PO ; Start 10/24/16 at 06:00; Status UNV Levofloxacin (Levaquin) 500 mg DAILY@06 PO ; Start 10/24/16 at 06:00; Status UNV BELINDA DYKES MD Oct 23, 2016 11:33
[2016-10-23] MEDS ORDERED: GUAIFENESIN/DM 5ML CUP PO PRN (12:00)
[2016-10-23 12:03] LABS: ADD SCAN DIFF NO
[2016-10-23 12:09] LABS: BASOPHILS % 0.4 % (0.0-2.0); EOSINOPHILS # 0.2 10^3/ul (0.0-0.5); EOSINOPHILS % 2.5 % (0.0-7.0); HEMATOCRIT 31.5 % (37.0-47.0); HEMOGLOBIN 10.1 g/dl (12.0-16.0); LYMPHOCYTES # 2.1 10^3/ul (0.8-2.9); LYMPHOCYTES % 23.9 % (15.0-51.0); MEAN CORPUSCULAR HEMOGLOBIN 28.5 pg (29.0-33.0); MEAN CORPUSCULAR HGB CONC 32.1 g/dl (32.0-37.0); MEAN CORPUSCULAR VOLUME 88.7 fl (82.0-101.0); MEAN PLATELET VOLUME 10.7 fl (7.4-10.4); MONOCYTE # 0.6 10^3/ul (0.3-0.9); MONOCYTES % 6.3 % (0.0-11.0); NEUTROPHILS % 66.5 % (39.0-77.0); PLATELET COUNT 266 10^3/UL (140-415); RED BLOOD COUNT 3.55 10^6/ul (4.20-5.40); RED CELL DISTRIBUTION WIDTH 15.8 % (11.5-14.5)
[2016-10-23] MEDS: predniSONE 20 MG TAB PO SCH (12:21)
[2016-10-23 12:49] LABS: CREATININE 0.66 mg/dl (0.44-1.00)
[2016-10-23] MEDS: PROPYLTHIOURACIL 50 MG TAB PO SCH ×2 (13:27→20:20)
[2016-10-23] MEDS: SOD FERRIC GLUC COMPLX 125 MG in SOD CHLORIDE 0.9% 100 ML IVPB SCH (14:46)
--- NOTE | 2016-10-23 17:58 | CONS ---
Date/Time of Note Date/Time of Note DATE: 10/23/16 TIME: 17:54 Assessment/Plan Assessment/Plan Chief Complaint/Hosp Course IMP: 1.AF-rate controlled 2.Hypercoaguable state 3.Hyperthyroid on PTU 4.DM 5. H/O GIB 6.UTI 7.CXP-resolved/negative trop x 3/NL EF by echo 08/22 Recc: -Tele -continue coreg -Continue PTU -Follow volume status closely -Contineu asa -Continue abx's/steroids and f/u cx data Problems: Consultation Date/Type/Reason Admit Date/Time Oct 21, 2016 at 05:51 Initial Consult Date 10/22/16 Type of Consultation: Cardiology Reason for Consultation AF Referring Provider: KENNY TELLEZ Exam/Review of Systems Vital Signs Vitals Vital Signs Date Time Temp Pulse Resp B/P Pulse Ox O2 Delivery O2 Flow Rate FiO2 10/23/16 16:11 84 10/23/16 15:47 98.1 20 111/58 90 10/23/16 08:20 Nasal Cannula 2.0 Intake and Output 10/22/16 10/22/16 10/23/16 15:00 23:00 07:00 Intake Total 100 ml 650 ml 120 ml Output Total 220 ml 350 ml Balance 100 ml 430 ml -230 ml Exam Review of Systems: CONSTITUTIONAL: No fevers, chills. PULMONARY: No sob CARDIOVASCULAR: No chest pain/palpitations GASTROINTESTINAL: No nausea/vomiting. GENITOURINARY: No hematuria/dysuria. MUSCULOSKELETAL: No myagias/arthalgias. PSYCHIATRIC: The patient denies depression. NEUROLOGIC: No weakness Constitutional: alert Psych: no complaints Head: normocephalic ENMT: mucosa pink and moist Neck: jvd, supple Respiratory: diminished breath sounds Cardiovascular: irregular rhythm Gastrointestinal: non-tender, soft Musculoskeletal: muscle weakness (generalized) Extremities: edema (none) Neurological: lethargic Results Result Diagram: 10/23/16 1140 10/23/16 1140 Results 24 hrs Laboratory Tests Test 10/22/16 21:37 10/23/16 08:29 10/23/16 11:40 10/23/16 11:44 Bedside Glucose 103 135 162 Anion Gap 15 Basophils # 0.0 Basophils % 0.4 Blood Urea Nitrogen 37 H Calcium Level 8.0 L Carbon Dioxide Level 26 Chloride Level 98 Creatinine 0.66 Eosinophils # 0.2 Eosinophils % 2.5 Glucose Level 138 Hematocrit 31.5 L Hemoglobin 10.1 L Lymphocytes # 2.1 Lymphocytes % 23.9 Magnesium Level 1.9 Mean Corpuscular Hemoglobin 28.5 L Mean Corpuscular Hemoglobin Concent 32.1 Mean Corpuscular Volume 88.7 Mean Platelet Volume 10.7 H Monocytes # 0.6 Monocytes % 6.3 Neutrophils # 6.0 Neutrophils % 66.5 Nucleated Red Blood Cells # 0.0 Nucleated Red Blood Cells % 0.0 Platelet Count 266 Potassium Level 4.0 Red Blood Count 3.55 L Red Cell Distribution Width 15.8 H Sodium Level 135 White Blood Count 9.0 Test 10/23/16 17:12 Bedside Glucose 117 Medications Medications Current Medications Ondansetron HCl (Zofran Inj) 4 mg Q6H PRN IV NAUSEA AND/OR VOMITING Last administered on 10/23/16 10:24; Admin Dose 4 MG; Start 10/21/16 at 05:30 Acetaminophen (Tylenol Tab) 650 mg Q6H PRN PO PAIN LEVEL 1-3 OR FEVER; Start at 05:30 Acetaminophen/ Hydrocodone Bitart ([place] (5/325)) 1 tab Q6H PRN PO MODERATE PAIN LEVEL 4-6 Last administered on 10/22/16 17:42; Admin Dose 1 TAB; Start at 05:30 Morphine Sulfate (morphine) 2 mg Q4H PRN IV SEVERE PAIN LEVEL 7-10 Last administered on 10/23/16 14:46; Admin Dose 2 MG; Start 10/21/16 at 05:30 Magnesium Hydroxide (Milk Of Mag) 30 ml DAILY PRN PO CONSTIPATION; Start at 05:30 Sodium Biphosphate/ Sodium Phosphate (Fleet Enema) 133 ml DAILY PRN [place] CONSTIPATION; Start 10/21/16 at 05:30 Lorazepam (Ativan) 0.5 mg Q6H PRN IV ANXIETY Last administered on 10/22/16 09: 12; Admin Dose 0.5 MG; Start 10/21/16 at 05:30 Hydralazine HCl (Apresoline) 10 mg Q6H PRN IV ELEVATED SYSTOLIC BP; Start 10/21 at 05:30 Nitroglycerin (Nitroglycerin (Sl Tab) 0.4 Mg) 1 tab Q5M PRN SL ANGINA; Start at 05:30 Amlodipine Besylate (Norvasc) 5 mg DAILY PO Last administered on 10/23/16 09: 14; Admin Dose 5 MG; Start 10/21/16 at 09:00 Ascorbic Acid (Vitamin C) 500 mg DAILY PO Last administered on 10/23/16 09:14 ; Admin Dose 500 MG; Start 10/21/16 at 09:00 Aspirin (Halfprin) 81 mg DAILY PO Last administered on 10/23/16 09:13; Admin Dose 81 MG; Start 10/21/16 at 09:00 Atorvastatin Calcium (Lipitor) 10 mg QHS PO Last administered on 10/22/16 21: 53; Admin Dose 10 MG; Start 10/21/16 at 21:00 Bisacodyl (Dulcolax) 10 mg DAILY PRN PO CONSTIPATION; Start 10/21/16 at 05:30 Buspirone HCl (Buspar) 10 mg MONWEDFRI PO Last administered on 10/23/16 09:14 ; Admin Dose 10 MG; Start 10/23/16 at 09:00 Clonidine (Catapres) 0.1 mg Q8 PRN PO ELEVATED BLOOD PRESSURE; Start 10/21/16 at 05:30 Collagenase (Santyl) 1 applic DAILY TOP Last administered on 10/23/16 09:15; Admin Dose 1 APPLIC; Start 10/21/16 at 09:00 Diphenhydramine HCl (Benadryl) 25 mg PRN PRN PO ITCHING; Start 10/21/16 at 05: 30 Docusate Sodium (Colace) 200 mg QHS PO Last administered on 10/22/16 21:53; Admin Dose 200 MG; Start 10/21/16 at 21:00 Gentamicin Sulfate (Gentamicin 0.1% Oint) 1 applic DAILY TOP Last administered on 10/23/16 09:14; Admin Dose 1 APPLIC; Start 10/21/16 at 09:00 Guaifenesin (Robitussin Liquid Cup) 200 mg Q4H PRN PO COUGH Last administered on 10/23/16 09:32; Admin Dose 200 MG; Start 10/21/16 at 05:30 Multivitamins Therapeutic (Theragran) 1 tab DAILY PO Last administered on 09:13; Admin Dose 1 TAB; Start 10/21/16 at 09:00 Mupirocin (Bactroban) 1 applic BID TOP Last administered on 10/23/16 09:14; Admin Dose 1 APPLIC; Start 10/21/16 at 09:00 Sodium Chloride (Koffi-128 5%) 1 drop TID BOTH EYES Last administered on 12:22; Admin Dose 1 DROP; Start 10/21/16 at 09:00 Miscellaneous Information 1 ea NOTE XX ; Start 10/21/16 at 07:00 Glucose (Glutose) 15 gm Q15M PRN PO DECREASED GLUCOSE; Start 10/21/16 at 07:00 Glucose (Glutose) 22.5 gm Q15M PRN PO DECREASED GLUCOSE; Start 10/21/16 at 07: 00 Dextrose (D50w Syringe) 25 ml Q15M PRN IV DECREASED GLUCOSE; Start 10/21/16 at 07:00 Dextrose (D50w Syringe) 50 ml Q15M PRN IV DECREASED GLUCOSE; Start 10/21/16 at 07:00 Glucagon (Glucagen) 1 mg Q15M PRN IM DECREASED GLUCOSE; Start 10/21/16 at 07:00 Glucose 15 gm 15 gm Q15M PRN BUCCAL DECREASED GLUCOSE; Start 10/21/16 at 07:00 Ferric Sodium Gluconate Complex/ Sodium Chloride (Ferrlecit/NS) 110 ml @ 110 mls/hr Q24H IVPB Last administered on 10/23/16 14:46; Admin Dose 110 MLS/HR; Start 10/22/16 at 15:00; Stop 10/26/16 at 15:59 Insulin Glargine (Lantus) 14 unit QHS SC Last administered on 10/22/16 21:59; Admin Dose 14 UNIT; Start 10/22/16 at 21:00 Methimazole (Tapazole) 20 mg DAILY PO Last administered on 10/23/16 09:14; Admin Dose 20 MG; Start 10/22/16 at 14:30 Apixaban (Eliquis) 5 mg BID PO Last administered on 10/23/16 09:14; Admin Dose 5 MG; Start 10/22/16 at 21:00 Propylthiouracil (Ptu) 200 mg TID PO Last administered on 10/23/16 13:27; Admin Dose 200 MG; Start 10/23/16 at 13:00; Stop 10/24/16 at 12:59 Carvedilol (Coreg) 6.25 mg BID PO Last administered on 10/23/16 12:19; Admin Dose 6.25 MG; Start 10/23/16 at 11:00 Prednisone (Prednisone) 60 mg DAILY PO Last administered on 10/23/16 12:21; Admin Dose 60 MG; Start 10/23/16 at 12:00 Guaifenesin/ Dextromethorphan (Robitussin Dm Liquid Cup) 10 ml Q4H PRN PO COUGH ; Start 10/23/16 at 12:00 Pantoprazole (Protonix Tab) 40 mg DAILY@06 PO ; Start 10/24/16 at 06:00 Levofloxacin (Levaquin) 500 mg DAILY@06 PO ; Start 10/24/16 at 06:00 LIBIA SILVA Oct 23, 2016 17:58
[2016-10-23] MEDS: DOCUSATE SODIUM 100 MG CAP PO SCH (20:19)
[2016-10-23] MEDS: ATORVASTATIN 10 MG TAB PO SCH (20:19)
[2016-10-23] MEDS: INSULIN GLARGINE [LANtus] 3 ML PEN SC SCH (20:36)
[2016-10-24] VITALS (11 sets, daily range): BP systolic 110–162; BP diastolic 58–72; PULSE 70–175; RESP 16–19
[2016-10-24] MEDS: LEVOFLOXACIN 500 MG TAB PO SCH (05:15)
[2016-10-24] MEDS: PANTOPRAZOLE (EC) 40 MG TAB PO SCH (05:15)
[2016-10-24 08:08] LABS: PHOSPHORUS 3.3 mg/dl (2.5-4.9)
[2016-10-24 08:09] LABS: MAGNESIUM 1.8 mg/dl (1.7-2.5)
[2016-10-24 08:12] LABS: ADD SCAN DIFF NO
[2016-10-24 08:23] LABS: HEMATOCRIT 34.4 % (37.0-47.0); HEMOGLOBIN 10.9 g/dl (12.0-16.0); LYMPHOCYTES # 1.4 10^3/ul (0.8-2.9); LYMPHOCYTES % 15.1 % (15.0-51.0); MEAN CORPUSCULAR HEMOGLOBIN 28.1 pg (29.0-33.0); MEAN CORPUSCULAR HGB CONC 31.7 g/dl (32.0-37.0); MEAN CORPUSCULAR VOLUME 88.7 fl (82.0-101.0); MEAN PLATELET VOLUME 11.5 fl (7.4-10.4); MONOCYTE # 0.4 10^3/ul (0.3-0.9); MONOCYTES % 3.9 % (0.0-11.0); NEUTROPHIL # 7.5 10^3/ul (1.6-7.5); NEUTROPHILS % 80.6 % (39.0-77.0); PLATELET COUNT 221 10^3/UL (140-415); RED BLOOD COUNT 3.88 10^6/ul (4.20-5.40); RED CELL DISTRIBUTION WIDTH 15.8 % (11.5-14.5); WHITE BLOOD COUNT 9.3 10^3/ul (4.8-10.8)
[2016-10-24] MEDS: predniSONE 20 MG TAB PO SCH (08:51)
[2016-10-24] MEDS: METHIMAZOLE 5 MG TAB PO SCH (08:51)
[2016-10-24] MEDS: MULTIVITAMINS THERAPEUTIC TAB PO SCH (08:51)
[2016-10-24] MEDS: ASPIRIN (EC) 81 MG TAB PO SCH (08:51)
[2016-10-24] MEDS: PROPYLTHIOURACIL 50 MG TAB PO SCH (08:51)
[2016-10-24] MEDS: APIXABAN 5 MG TABLET PO SCH ×2 (08:51→21:11)
[2016-10-24] MEDS: AMLODIPINE 5 MG TAB PO SCH (08:52)
[2016-10-24] MEDS: ASCORBIC ACID 500 MG TAB PO SCH (08:52)
[2016-10-24] MEDS: INSULIN ASPART [NOVOLOG] 3 ML PEN SC SCH ×7 (08:57→21:21)
[2016-10-24] MEDS: GENTAMICIN 0.1% 15 GM OINT TOP SCH (08:59)
[2016-10-24] MEDS: COLLAGENASE 30 GM TUBE TOP SCH (09:00)
[2016-10-24] MEDS: SODIUM CHLORIDE 5% 15ML OPH BOTH EYES SCH ×3 (09:01→21:10)
[2016-10-24] MEDS: MUPIROCIN 2% 22 GM OINT TOP SCH ×2 (09:01→21:10)
[2016-10-24 09:18] LABS: ALBUMIN 2.9 g/dl (3.3-4.9); POTASSIUM 4.4 mmol/L (3.5-5.1)
[2016-10-24 09:20] LABS: CREATININE 0.66 mg/dl (0.44-1.00)
[2016-10-24 09:21] LABS: ALBUMIN/GLOBULIN RATIO 0.8; BILIRUBIN,INDIRECT 0.2 mg/dl (0-1.1); BILIRUBIN,TOTAL 0.2 mg/dl (0.2-1.3); CALCIUM 8.5 mg/dl (8.4-10.2); TOTAL PROTEIN 6.5 g/dl (6.1-8.1)
--- NOTE | 2016-10-24 09:39 | CONS ---
Date/Time of Note Date/Time of Note DATE: 10/24/16 TIME: 09:37 Assessment/Plan Assessment/Plan Additional Assessment/Plan 1. Atrial fibrillation - in the setting of thyroid Dz. Dr. Louie follows. Continue to monitor the patient closely. Increase BB as tolerated. 2. Secondary hypercoagulable state. The patient's CHADS2 score is greater than 1. She will have to be fully anticoagulated unless there is absolute contraindication. Will discuss with primary team and if needed, we will add anticoagulation agent. The patient is on aspirin 81 now. I think it would be reasonable to consider Eliquis 5 mg p.o. twice a day unless there is a contraindication. 3. Coronary artery disease, no chest pain reported, continue medical optimization and care. NO CP now. 4. Chest pain. The patient had 2 set of troponins which were negative at 0.012. 5. Thyrotoxicosis. Continue to treat per endocrinology team. Consultation Date/Type/Reason Admit Date/Time Oct 21, 2016 at 05:51 Initial Consult Date 10/22/16 Type of Consultation: Cardiology Referring Provider: KENNY TELLEZ 24 HR Interval Summary Free Text/Dictation No acute change - still in a. fib at 80s to 90s - hever;l increase BB as tolerated. ROS: No fever, no chills, no nausea, no vomiting, no diarrhea/constipation No recent weight changes No chest pain, no PND, no orthopnea No dizziness, blurred vision No thirst, no heat or cold intolerance Exam/Review of Systems Vital Signs Vitals Vital Signs Date Time Temp Pulse Resp B/P Pulse Ox O2 Delivery O2 Flow Rate FiO2 10/24/16 08:00 80 10/24/16 07:59 98.8 16 141/64 91 10/24/16 02:09 2.0 10/23/16 22:26 Nasal Cannula Intake and Output 10/23/16 10/23/16 10/24/16 15:00 23:00 07:00 Intake Total 1000 ml 850 ml Output Total 1000 ml 900 ml Balance 0 ml -50 ml Exam General: WN/WD/NAD, AOx 2-3 HEENT: Unicetric/atraumatic/EOMI (follow commands) NECK: JVD elevated, no thyromegaly Lymph: no lymphadenopathy HEART: IR IRregular with no S3, II/ systolic murmur at apex LUNGS: Coarse sounds ABD: soft, NT, ND, +BS : Intact Neuro: non focal SKIN: chronic changes EXT: trace edema Results Result Diagram: 10/24/16 0640 10/24/16 0640 Results 24 hrs Laboratory Tests Test 10/23/16 11:40 10/23/16 11:44 10/23/16 17:12 10/23/16 20:17 Anion Gap 15 Basophils # 0.0 Basophils % 0.4 Blood Urea Nitrogen 37 H Calcium Level 8.0 L Carbon Dioxide Level 26 Chloride Level 98 Creatinine 0.66 Eosinophils # 0.2 Eosinophils % 2.5 Glucose Level 138 Hematocrit 31.5 L Hemoglobin 10.1 L Lymphocytes # 2.1 Lymphocytes % 23.9 Magnesium Level 1.9 Mean Corpuscular Hemoglobin 28.5 L Mean Corpuscular Hemoglobin Concent 32.1 Mean Corpuscular Volume 88.7 Mean Platelet Volume 10.7 H Monocytes # 0.6 Monocytes % 6.3 Neutrophils # 6.0 Neutrophils % 66.5 Nucleated Red Blood Cells # 0.0 Nucleated Red Blood Cells % 0.0 Platelet Count 266 Potassium Level 4.0 Red Blood Count 3.55 L Red Cell Distribution Width 15.8 H Sodium Level 135 White Blood Count 9.0 Bedside Glucose 162 117 125 Test 10/24/16 06:40 10/24/16 08:14 Alanine Aminotransferase (ALT/SGPT) 21 Albumin 2.9 L Albumin/Globulin Ratio 0.80 Alkaline Phosphatase 72 Anion Gap 17 H Aspartate Amino Transf (AST/SGOT) 28 Basophils # 0.0 Basophils % 0.0 Blood Urea Nitrogen 31 H Calcium Level 8.5 Carbon Dioxide Level 24 Chloride Level 98 Creatinine 0.66 Direct Bilirubin 0.00 Eosinophils # 0.0 Eosinophils % 0.0 Globulin 3.60 H Glucose Level 260 #H Hematocrit 34.4 L Hemoglobin 10.9 L Indirect Bilirubin 0.2 Lymphocytes # 1.4 Lymphocytes % 15.1 Magnesium Level 1.8 Mean Corpuscular Hemoglobin 28.1 L Mean Corpuscular Hemoglobin Concent 31.7 L Mean Corpuscular Volume 88.7 Mean Platelet Volume 11.5 H Monocytes # 0.4 Monocytes % 3.9 Neutrophils # 7.5 Neutrophils % 80.6 H Nucleated Red Blood Cells # 0.0 Nucleated Red Blood Cells % 0.0 Phosphorus Level 3.3 Platelet Count 221 Potassium Level 4.4 Red Blood Count 3.88 L Red Cell Distribution Width 15.8 H Sodium Level 135 Total Bilirubin 0.2 Total Protein 6.5 White Blood Count 9.3 Bedside Glucose 275 H Medications Medications Current Medications Ondansetron HCl (Zofran Inj) 4 mg Q6H PRN IV NAUSEA AND/OR VOMITING Last administered on 10/23/16 10:24; Admin Dose 4 MG; Start 10/21/16 at 05:30 Acetaminophen (Tylenol Tab) 650 mg Q6H PRN PO PAIN LEVEL 1-3 OR FEVER; Start at 05:30 Acetaminophen/ Hydrocodone Bitart ([place] (5/325)) 1 tab Q6H PRN PO MODERATE PAIN LEVEL 4-6 Last administered on 10/22/16 17:42; Admin Dose 1 TAB; Start at 05:30 Morphine Sulfate (morphine) 2 mg Q4H PRN IV SEVERE PAIN LEVEL 7-10 Last administered on 10/23/16 14:46; Admin Dose 2 MG; Start 10/21/16 at 05:30 Magnesium Hydroxide (Milk Of Mag) 30 ml DAILY PRN PO CONSTIPATION; Start at 05:30 Sodium Biphosphate/ Sodium Phosphate (Fleet Enema) 133 ml DAILY PRN [place] CONSTIPATION; Start 10/21/16 at 05:30 Lorazepam (Ativan) 0.5 mg Q6H PRN IV ANXIETY Last administered on 10/22/16 09: 12; Admin Dose 0.5 MG; Start 10/21/16 at 05:30 Hydralazine HCl (Apresoline) 10 mg Q6H PRN IV ELEVATED SYSTOLIC BP; Start 10/21 at 05:30 Nitroglycerin (Nitroglycerin (Sl Tab) 0.4 Mg) 1 tab Q5M PRN SL ANGINA; Start at 05:30 Amlodipine Besylate (Norvasc) 5 mg DAILY PO Last administered on 10/24/16 08: 52; Admin Dose 5 MG; Start 10/21/16 at 09:00 Ascorbic Acid (Vitamin C) 500 mg DAILY PO Last administered on 10/24/16 08:52 ; Admin Dose 500 MG; Start 10/21/16 at 09:00 Aspirin (Halfprin) 81 mg DAILY PO Last administered on 10/24/16 08:51; Admin Dose 81 MG; Start 10/21/16 at 09:00 Atorvastatin Calcium (Lipitor) 10 mg QHS PO Last administered on 10/23/16 20: 19; Admin Dose 10 MG; Start 10/21/16 at 21:00 Bisacodyl (Dulcolax) 10 mg DAILY PRN PO CONSTIPATION; Start 10/21/16 at 05:30 Buspirone HCl (Buspar) 10 mg MONWEDFRI PO Last administered on 10/23/16 09:14 ; Admin Dose 10 MG; Start 10/23/16 at 09:00 Clonidine (Catapres) 0.1 mg Q8 PRN PO ELEVATED BLOOD PRESSURE; Start 10/21/16 at 05:30 Collagenase (Santyl) 1 applic DAILY TOP Last administered on 10/24/16 09:00; Admin Dose 1 APPLIC; Start 10/21/16 at 09:00 Diphenhydramine HCl (Benadryl) 25 mg PRN PRN PO ITCHING; Start 10/21/16 at 05: 30 Docusate Sodium (Colace) 200 mg QHS PO Last administered on 10/23/16 20:19; Admin Dose 200 MG; Start 10/21/16 at 21:00 Gentamicin Sulfate (Gentamicin 0.1% Oint) 1 applic DAILY TOP Last administered on 10/24/16 08:59; Admin Dose 1 APPLIC; Start 10/21/16 at 09:00 Guaifenesin (Robitussin Liquid Cup) 200 mg Q4H PRN PO COUGH Last administered on 10/23/16 09:32; Admin Dose 200 MG; Start 10/21/16 at 05:30 Multivitamins Therapeutic (Theragran) 1 tab DAILY PO Last administered on 08:51; Admin Dose 1 TAB; Start 10/21/16 at 09:00 Mupirocin (Bactroban) 1 applic BID TOP Last administered on 10/24/16 09:01; Admin Dose 1 APPLIC; Start 10/21/16 at 09:00 Sodium Chloride (Koffi-128 5%) 1 drop TID BOTH EYES Last administered on 09:01; Admin Dose 1 DROP; Start 10/21/16 at 09:00 Miscellaneous Information 1 ea NOTE XX ; Start 10/21/16 at 07:00 Glucose (Glutose) 15 gm Q15M PRN PO DECREASED GLUCOSE; Start 10/21/16 at 07:00 Glucose (Glutose) 22.5 gm Q15M PRN PO DECREASED GLUCOSE; Start 10/21/16 at 07: 00 Dextrose (D50w Syringe) 25 ml Q15M PRN IV DECREASED GLUCOSE; Start 10/21/16 at 07:00 Dextrose (D50w Syringe) 50 ml Q15M PRN IV DECREASED GLUCOSE; Start 10/21/16 at 07:00 Glucagon (Glucagen) 1 mg Q15M PRN IM DECREASED GLUCOSE; Start 10/21/16 at 07:00 Glucose 15 gm 15 gm Q15M PRN BUCCAL DECREASED GLUCOSE; Start 10/21/16 at 07:00 Ferric Sodium Gluconate Complex/ Sodium Chloride (Ferrlecit/NS) 110 ml @ 110 mls/hr Q24H IVPB Last administered on 10/23/16 14:46; Admin Dose 110 MLS/HR; Start 10/22/16 at 15:00; Stop 10/26/16 at 15:59 Insulin Glargine (Lantus) 14 unit QHS SC Last administered on 10/23/16 20:36; Admin Dose 14 UNIT; Start 10/22/16 at 21:00 Methimazole (Tapazole) 20 mg DAILY PO Last administered on 10/24/16 08:51; Admin Dose 20 MG; Start 10/22/16 at 14:30 Apixaban (Eliquis) 5 mg BID PO Last administered on 10/24/16 08:51; Admin Dose 5 MG; Start 10/22/16 at 21:00 Propylthiouracil (Ptu) 200 mg TID PO Last administered on 10/24/16 08:51; Admin Dose 200 MG; Start 10/23/16 at 13:00; Stop 10/24/16 at 12:59 Carvedilol (Coreg) 6.25 mg BID PO Last administered on 10/24/16 08:52; Admin Dose 6.25 MG; Start 10/23/16 at 11:00 Prednisone (Prednisone) 60 mg DAILY PO Last administered on 10/24/16 08:51; Admin Dose 60 MG; Start 10/23/16 at 12:00 Guaifenesin/ Dextromethorphan (Robitussin Dm Liquid Cup) 10 ml Q4H PRN PO COUGH ; Start 10/23/16 at 12:00 Pantoprazole (Protonix Tab) 40 mg DAILY@06 PO Last administered on 10/24/16 05 :15; Admin Dose 40 MG; Start 10/24/16 at 06:00 Levofloxacin (Levaquin) 500 mg DAILY@06 PO Last administered on 10/24/16 05:15 ; Admin Dose 500 MG; Start 10/24/16 at 06:00 IMTIAZ NEVAREZ MD Oct 24, 2016 09:39
[2016-10-24] MEDS: morphine 2 MG INJ IV PRN (09:47)
--- NOTE | 2016-10-24 11:41 | PN ---
Date/Time of Note Date/Time of Note DATE: 10/24/16 TIME: 11:34 Assessment/Plan VTE Prophylaxis VTE Prophylaxis Intervention: other (Eliquis) Lines/Catheters [facility] [place] [facility] Urinary Cath still in place: Yes Reason Cath still needed: urinary retention Assessment/Plan Chief Complaint/Hosp Course Hospitalist coverage Subjective: Occasional headache. Throbbing, no known aggravating or relieving factors. No vomiting or light sensitivity. Probably less dyspnea or wheeze. No chest pain palpitations. Objective: Vital signs stable. Blood pressure improved. Physical examination No pallor Irregular, no murmur rub gallop Clear bilaterally Bowel sounds positive, nontender, nondistended, no RIG No edema A/P 1) A Fib w RVR; stable/improved, on rt control w coreg; eliquis as well 2) CP; no acs; cont medical management; dc asa? 3) Hyperthyroidism; presently on medical therapy 4) Low Mag 5) Ftt; DC back to [facility] tomorrow 6) IV Decubitus; multiple organisms appear colonized, cont wound care. 7) Dm/Htn 8) Ho stroke 9) Ac bronchitis; adjusted medical management 10) Ho mrsa bacteremia 11) Ho GI Bleed/duodenitis/gastritis/ M-W tear ~08/15/16; cont to monitor. will dc eliquis if hb drops 12) CAD? Continue medical management 13. Hypoxia. Stable continue O2. Reevaluate down the line. 14. Hypoalbuminemia. Problems: Exam/Review of Systems Vital Signs Vitals Vital Signs Date Time Temp Pulse Resp B/P Pulse Ox O2 Delivery O2 Flow Rate FiO2 10/24/16 08:00 80 10/24/16 08:00 Nasal Cannula 2.0 10/24/16 07:59 98.8 16 141/64 91 Intake and Output 10/23/16 10/23/16 10/24/16 15:00 23:00 07:00 Intake Total 1000 ml 850 ml Output Total 1000 ml 900 ml Balance 0 ml -50 ml Results Result Diagram: 10/24/16 0640 10/24/16 0640 Results 24 hrs Laboratory Tests Test 10/23/16 11:40 10/23/16 11:44 10/23/16 17:12 10/23/16 20:17 Anion Gap 15 Basophils # 0.0 Basophils % 0.4 Blood Urea Nitrogen 37 H Calcium Level 8.0 L Carbon Dioxide Level 26 Chloride Level 98 Creatinine 0.66 Eosinophils # 0.2 Eosinophils % 2.5 Glucose Level 138 Hematocrit 31.5 L Hemoglobin 10.1 L Lymphocytes # 2.1 Lymphocytes % 23.9 Magnesium Level 1.9 Mean Corpuscular Hemoglobin 28.5 L Mean Corpuscular Hemoglobin Concent 32.1 Mean Corpuscular Volume 88.7 Mean Platelet Volume 10.7 H Monocytes # 0.6 Monocytes % 6.3 Neutrophils # 6.0 Neutrophils % 66.5 Nucleated Red Blood Cells # 0.0 Nucleated Red Blood Cells % 0.0 Platelet Count 266 Potassium Level 4.0 Red Blood Count 3.55 L Red Cell Distribution Width 15.8 H Sodium Level 135 White Blood Count 9.0 Bedside Glucose 162 117 125 Test 10/24/16 06:40 10/24/16 08:14 Alanine Aminotransferase (ALT/SGPT) 21 Albumin 2.9 L Albumin/Globulin Ratio 0.80 Alkaline Phosphatase 72 Anion Gap 17 H Aspartate Amino Transf (AST/SGOT) 28 Basophils # 0.0 Basophils % 0.0 Blood Urea Nitrogen 31 H Calcium Level 8.5 Carbon Dioxide Level 24 Chloride Level 98 Creatinine 0.66 Direct Bilirubin 0.00 Eosinophils # 0.0 Eosinophils % 0.0 Globulin 3.60 H Glucose Level 260 #H Hematocrit 34.4 L Hemoglobin 10.9 L Indirect Bilirubin 0.2 Lymphocytes # 1.4 Lymphocytes % 15.1 Magnesium Level 1.8 Mean Corpuscular Hemoglobin 28.1 L Mean Corpuscular Hemoglobin Concent 31.7 L Mean Corpuscular Volume 88.7 Mean Platelet Volume 11.5 H Monocytes # 0.4 Monocytes % 3.9 Neutrophils # 7.5 Neutrophils % 80.6 H Nucleated Red Blood Cells # 0.0 Nucleated Red Blood Cells % 0.0 Phosphorus Level 3.3 Platelet Count 221 Potassium Level 4.4 Red Blood Count 3.88 L Red Cell Distribution Width 15.8 H Sodium Level 135 Total Bilirubin 0.2 Total Protein 6.5 White Blood Count 9.3 Bedside Glucose 275 H Medications Medications Current Medications Ondansetron HCl (Zofran Inj) 4 mg Q6H PRN IV NAUSEA AND/OR VOMITING Last administered on 10/23/16t 10:24; Admin Dose 4 MG; Start 10/21/16 at 05:30 Acetaminophen (Tylenol Tab) 650 mg Q6H PRN PO PAIN LEVEL 1-3 OR FEVER; Start at 05:30 Acetaminophen/ Hydrocodone Bitart ([place] (5/325)) 1 tab Q6H PRN PO MODERATE PAIN LEVEL 4-6 Last administered on 10/22/16 17:42; Admin Dose 1 TAB; Start at 05:30 Morphine Sulfate (morphine) 2 mg Q4H PRN IV SEVERE PAIN LEVEL 7-10 Last administered on 10/24/16 09:47; Admin Dose 2 MG; Start 10/21/16 at 05:30 Magnesium Hydroxide (Milk Of Mag) 30 ml DAILY PRN PO CONSTIPATION; Start at 05:30 Sodium Biphosphate/ Sodium Phosphate (Fleet Enema) 133 ml DAILY PRN [place] CONSTIPATION; Start 10/21/16 at 05:30 Lorazepam (Ativan) 0.5 mg Q6H PRN IV ANXIETY Last administered on 10/22/16 09: 12; Admin Dose 0.5 MG; Start 10/21/16 at 05:30 Hydralazine HCl (Apresoline) 10 mg Q6H PRN IV ELEVATED SYSTOLIC BP; Start 10/21 at 05:30 Nitroglycerin (Nitroglycerin (Sl Tab) 0.4 Mg) 1 tab Q5M PRN SL ANGINA; Start at 05:30 Amlodipine Besylate (Norvasc) 5 mg DAILY PO Last administered on 10/24/16 08: 52; Admin Dose 5 MG; Start 10/21/16 at 09:00 Ascorbic Acid (Vitamin C) 500 mg DAILY PO Last administered on 10/24/16 08:52 ; Admin Dose 500 MG; Start 10/21/16 at 09:00 Aspirin (Halfprin) 81 mg DAILY PO Last administered on 10/24/16 08:51; Admin Dose 81 MG; Start 10/21/16 at 09:00 Atorvastatin Calcium (Lipitor) 10 mg QHS PO Last administered on 10/23/16 20: 19; Admin Dose 10 MG; Start 10/21/16 at 21:00 Bisacodyl (Dulcolax) 10 mg DAILY PRN PO CONSTIPATION; Start 10/21/16 at 05:30 Buspirone HCl (Buspar) 10 mg MONWEDFRI PO Last administered on 10/23/16 09:14 ; Admin Dose 10 MG; Start 10/23/16 at 09:00 Clonidine (Catapres) 0.1 mg Q8 PRN PO ELEVATED BLOOD PRESSURE; Start 10/21/16 at 05:30 Collagenase (Santyl) 1 applic DAILY TOP Last administered on 10/24/16 09:00; Admin Dose 1 APPLIC; Start 10/21/16 at 09:00 Diphenhydramine HCl (Benadryl) 25 mg PRN PRN PO ITCHING; Start 10/21/16 at 05: 30 Docusate Sodium (Colace) 200 mg QHS PO Last administered on 10/23/16 20:19; Admin Dose 200 MG; Start 10/21/16 at 21:00 Gentamicin Sulfate (Gentamicin 0.1% Oint) 1 applic DAILY TOP Last administered on 10/24/16 08:59; Admin Dose 1 APPLIC; Start 10/21/16 at 09:00 Guaifenesin (Robitussin Liquid Cup) 200 mg Q4H PRN PO COUGH Last administered on 10/23/16 09:32; Admin Dose 200 MG; Start 10/21/16 at 05:30 Multivitamins Therapeutic (Theragran) 1 tab DAILY PO Last administered on 08:51; Admin Dose 1 TAB; Start 10/21/16 at 09:00 Mupirocin (Bactroban) 1 applic BID TOP Last administered on 10/24/16 09:01; Admin Dose 1 APPLIC; Start 10/21/16 at 09:00 Sodium Chloride (Koffi-128 5%) 1 drop TID BOTH EYES Last administered on 09:01; Admin Dose 1 DROP; Start 10/21/16 at 09:00 Miscellaneous Information 1 ea NOTE XX ; Start 10/21/16 at 07:00 Glucose (Glutose) 15 gm Q15M PRN PO DECREASED GLUCOSE; Start 10/21/16 at 07:00 Glucose (Glutose) 22.5 gm Q15M PRN PO DECREASED GLUCOSE; Start 10/21/16 at 07: 00 Dextrose (D50w Syringe) 25 ml Q15M PRN IV DECREASED GLUCOSE; Start 10/21/16 at 07:00 Dextrose (D50w Syringe) 50 ml Q15M PRN IV DECREASED GLUCOSE; Start 10/21/16 at 07:00 Glucagon (Glucagen) 1 mg Q15M PRN IM DECREASED GLUCOSE; Start 10/21/16 at 07:00 Glucose 15 gm 15 gm Q15M PRN BUCCAL DECREASED GLUCOSE; Start 10/21/16 at 07:00 Ferric Sodium Gluconate Complex/ Sodium Chloride (Ferrlecit/NS) 110 ml @ 110 mls/hr Q24H IVPB Last administered on 10/23/16 14:46; Admin Dose 110 MLS/HR; Start 10/22/16 at 15:00; Stop 10/26/16 at 15:59 Insulin Glargine (Lantus) 14 unit QHS SC Last administered on 10/23/16 20:36; Admin Dose 14 UNIT; Start 10/22/16 at 21:00 Methimazole (Tapazole) 20 mg DAILY PO Last administered on 10/24/16 08:51; Admin Dose 20 MG; Start 10/22/16 at 14:30 Apixaban (Eliquis) 5 mg BID PO Last administered on 10/24/16 08:51; Admin Dose 5 MG; Start 10/22/16 at 21:00 Propylthiouracil (Ptu) 200 mg TID PO Last administered on 10/24/16 08:51; Admin Dose 200 MG; Start 10/23/16 at 13:00; Stop 10/24/16 at 12:59 Carvedilol (Coreg) 6.25 mg BID PO Last administered on 10/24/16 08:52; Admin Dose 6.25 MG; Start 10/23/16 at 11:00 Prednisone (Prednisone) 60 mg DAILY PO Last administered on 10/24/16 08:51; Admin Dose 60 MG; Start 10/23/16 at 12:00 Guaifenesin/ Dextromethorphan (Robitussin Dm Liquid Cup) 10 ml Q4H PRN PO COUGH ; Start 10/23/16 at 12:00 Pantoprazole (Protonix Tab) 40 mg DAILY@06 PO Last administered on 10/24/16 05 :15; Admin Dose 40 MG; Start 10/24/16 at 06:00 Levofloxacin (Levaquin) 500 mg DAILY@06 PO Last administered on 10/24/16 05:15 ; Admin Dose 500 MG; Start 10/24/16 at 06:00 BELINDA DYKES MD Oct 24, 2016 11:41
[2016-10-24] MEDS ORDERED: DOXYCYCLINE 100 MG TAB PO SCH (12:00)
[2016-10-24] MEDS: FLUCONAZOLE 100 MG TAB NGT SCH (12:46)
--- NOTE | 2016-10-24 14:09 | CONS ---
Date/Time of Note Date/Time of Note DATE: 10/24/16 TIME: 14:03 Assessment/Plan Assessment/Plan Problems: (1) Hyperthyroidism Status: Chronic Comment: Coming very slowly under control as expected with methimazole. Patient will be ready for follow-up laboratory testing approximately December 01, 2016. This should be TSH free T4 CBC CMP (2) Diabetes mellitus type 2 in obese Status: Chronic Comment: Adequately controlled (3) Atrial fibrillation with RVR Status: Chronic Comment: Titrate up carvedilol titrated down amlodipine Consultation Date/Type/Reason Admit Date/Time Oct 21, 2016 at 05:51 Initial Consult Date 10/22/16 Type of Consultation: Endocrinology Reason for Consultation Hyperthyroidism with A. fib and RVR Referring Provider: KENNY TELLEZ 24 HR Interval Summary Constitutional: no complaints Exam/Review of Systems Vital Signs Vitals Vital Signs Date Time Temp Pulse Resp B/P Pulse Ox O2 Delivery O2 Flow Rate FiO2 10/24/16 12:00 70 10/24/16 11:54 97.5 18 123/58 98 10/24/16 08:00 Nasal Cannula 2.0 Intake and Output 10/23/16 10/23/16 10/24/16 15:00 23:00 07:00 Intake Total 1000 ml 850 ml Output Total 1000 ml 900 ml Balance 0 ml -50 ml Exam Constitutional: alert, oriented Respiratory: clear to auscultation, normal air movement Cardiovascular: irregular rhythm, nl pulses Gastrointestinal: nl liver, spleen, non-tender, soft Results Result Diagram: 10/24/16 0640 10/24/16 0640 Results 24 hrs Laboratory Tests Test 10/23/16 17:12 10/23/16 20:17 10/24/16 06:40 10/24/16 08:14 Bedside Glucose 117 125 275 H Alanine Aminotransferase (ALT/SGPT) 21 Albumin 2.9 L Albumin/Globulin Ratio 0.80 Alkaline Phosphatase 72 Anion Gap 17 H Aspartate Amino Transf (AST/SGOT) 28 Basophils # 0.0 Basophils % 0.0 Blood Urea Nitrogen 31 H Calcium Level 8.5 Carbon Dioxide Level 24 Chloride Level 98 Creatinine 0.66 Direct Bilirubin 0.00 Eosinophils # 0.0 Eosinophils % 0.0 Globulin 3.60 H Glucose Level 260 #H Hematocrit 34.4 L Hemoglobin 10.9 L Indirect Bilirubin 0.2 Lymphocytes # 1.4 Lymphocytes % 15.1 Magnesium Level 1.8 Mean Corpuscular Hemoglobin 28.1 L Mean Corpuscular Hemoglobin Concent 31.7 L Mean Corpuscular Volume 88.7 Mean Platelet Volume 11.5 H Monocytes # 0.4 Monocytes % 3.9 Neutrophils # 7.5 Neutrophils % 80.6 H Nucleated Red Blood Cells # 0.0 Nucleated Red Blood Cells % 0.0 Phosphorus Level 3.3 Platelet Count 221 Potassium Level 4.4 Red Blood Count 3.88 L Red Cell Distribution Width 15.8 H Sodium Level 135 Total Bilirubin 0.2 Total Protein 6.5 White Blood Count 9.3 Test 10/24/16 11:55 Bedside Glucose 272 H Medications Medications Current Medications Ondansetron HCl (Zofran Inj) 4 mg Q6H PRN IV NAUSEA AND/OR VOMITING Last administered on 10/23/16 10:24; Admin Dose 4 MG; Start 10/21/16 at 05:30 Acetaminophen (Tylenol Tab) 650 mg Q6H PRN PO PAIN LEVEL 1-3 OR FEVER; Start at 05:30 Acetaminophen/ Hydrocodone Bitart ([place] (5/325)) 1 tab Q6H PRN PO MODERATE PAIN LEVEL 4-6 Last administered on 10/22/16 17:42; Admin Dose 1 TAB; Start at 05:30 Morphine Sulfate (morphine) 2 mg Q4H PRN IV SEVERE PAIN LEVEL 7-10 Last administered on 10/24/16 09:47; Admin Dose 2 MG; Start 10/21/16 at 05:30 Magnesium Hydroxide (Milk Of Mag) 30 ml DAILY PRN PO CONSTIPATION; Start at 05:30 Sodium Biphosphate/ Sodium Phosphate (Fleet Enema) 133 ml DAILY PRN [place] CONSTIPATION; Start 10/21/16 at 05:30 Lorazepam (Ativan) 0.5 mg Q6H PRN IV ANXIETY Last administered on 10/22/16 09: 12; Admin Dose 0.5 MG; Start 10/21/16 at 05:30 Hydralazine HCl (Apresoline) 10 mg Q6H PRN IV ELEVATED SYSTOLIC BP; Start 10/21 at 05:30 Nitroglycerin (Nitroglycerin (Sl Tab) 0.4 Mg) 1 tab Q5M PRN SL ANGINA; Start at 05:30 Ascorbic Acid (Vitamin C) 500 mg DAILY PO Last administered on 10/24/16 08:52 ; Admin Dose 500 MG; Start 10/21/16 at 09:00 Aspirin (Halfprin) 81 mg DAILY PO Last administered on 10/24/16 08:51; Admin Dose 81 MG; Start 10/21/16 at 09:00 Atorvastatin Calcium (Lipitor) 10 mg QHS PO Last administered on 10/23/16 20: 19; Admin Dose 10 MG; Start 10/21/16 at 21:00 Bisacodyl (Dulcolax) 10 mg DAILY PRN PO CONSTIPATION; Start 10/21/16 at 05:30 Buspirone HCl (Buspar) 10 mg MONWEDFRI PO Last administered on 10/23/16 09:14 ; Admin Dose 10 MG; Start 10/23/16 at 09:00 Collagenase (Santyl) 1 applic DAILY TOP Last administered on 10/24/16 09:00; Admin Dose 1 APPLIC; Start 10/21/16 at 09:00 Diphenhydramine HCl (Benadryl) 25 mg PRN PRN PO ITCHING; Start 10/21/16 at 05: 30 Docusate Sodium (Colace) 200 mg QHS PO Last administered on 10/23/16 20:19; Admin Dose 200 MG; Start 10/21/16 at 21:00 Gentamicin Sulfate (Gentamicin 0.1% Oint) 1 applic DAILY TOP Last administered on 10/24/16 08:59; Admin Dose 1 APPLIC; Start 10/21/16 at 09:00 Guaifenesin (Robitussin Liquid Cup) 200 mg Q4H PRN PO COUGH Last administered on 10/23/16 09:32; Admin Dose 200 MG; Start 10/21/16 at 05:30 Multivitamins Therapeutic (Theragran) 1 tab DAILY PO Last administered on 08:51; Admin Dose 1 TAB; Start 10/21/16 at 09:00 Mupirocin (Bactroban) 1 applic BID TOP Last administered on 10/24/16 09:01; Admin Dose 1 APPLIC; Start 10/21/16 at 09:00 Sodium Chloride (Koffi-128 5%) 1 drop TID BOTH EYES Last administered on 12:44; Admin Dose 1 DROP; Start 10/21/16 at 09:00 Miscellaneous Information 1 ea NOTE XX ; Start 10/21/16 at 07:00 Glucose (Glutose) 15 gm Q15M PRN PO DECREASED GLUCOSE; Start 10/21/16 at 07:00 Glucose (Glutose) 22.5 gm Q15M PRN PO DECREASED GLUCOSE; Start 10/21/16 at 07: 00 Dextrose (D50w Syringe) 25 ml Q15M PRN IV DECREASED GLUCOSE; Start 10/21/16 at 07:00 Dextrose (D50w Syringe) 50 ml Q15M PRN IV DECREASED GLUCOSE; Start 10/21/16 at 07:00 Glucagon (Glucagen) 1 mg Q15M PRN IM DECREASED GLUCOSE; Start 10/21/16 at 07:00 Glucose 15 gm 15 gm Q15M PRN BUCCAL DECREASED GLUCOSE; Start 10/21/16 at 07:00 Ferric Sodium Gluconate Complex/ Sodium Chloride (Ferrlecit/NS) 110 ml @ 110 mls/hr Q24H IVPB Last administered on 10/23/16 14:46; Admin Dose 110 MLS/HR; Start 10/22/16 at 15:00; Stop 10/26/16 at 15:59 Insulin Glargine (Lantus) 14 unit QHS SC Last administered on 10/23/16 20:36; Admin Dose 14 UNIT; Start 10/22/16 at 21:00 Methimazole (Tapazole) 20 mg DAILY PO Last administered on 10/24/16 08:51; Admin Dose 20 MG; Start 10/22/16 at 14:30 Apixaban (Eliquis) 5 mg BID PO Last administered on 10/24/16 08:51; Admin Dose 5 MG; Start 10/22/16 at 21:00 Prednisone (Prednisone) 60 mg DAILY PO Last administered on 10/24/16 08:51; Admin Dose 60 MG; Start 10/23/16 at 12:00 Guaifenesin/ Dextromethorphan (Robitussin Dm Liquid Cup) 10 ml Q4H PRN PO COUGH ; Start 10/23/16 at 12:00 Pantoprazole (Protonix Tab) 40 mg DAILY@06 PO Last administered on 10/24/16 05 :15; Admin Dose 40 MG; Start 10/24/16 at 06:00 Levofloxacin (Levaquin) 500 mg DAILY@06 PO Last administered on 10/24/16 05:15 ; Admin Dose 500 MG; Start 10/24/16 at 06:00 Fluconazole (Diflucan) 100 mg DAILY NGT Last administered on 10/24/16t 12:46; Admin Dose 100 MG; Start 10/24/16 at 13:00 Amlodipine Besylate (Norvasc) 2.5 mg DAILY PO ; Start 10/25/16 at 09:00; Status UNV Carvedilol (Coreg) 12.5 mg BID PO ; Start 10/24/16 at 21:00; Status UNV MINNIE GILES MD Oct 24, 2016 14:09
[2016-10-24] MEDS: SOD FERRIC GLUC COMPLX 125 MG in SOD CHLORIDE 0.9% 100 ML IVPB SCH (14:54)
--- NOTE | 2016-10-24 15:05 | PN ---
DATE: 10/24/2016 SUBJECTIVE: Infectious disease progress note. No acute changes overnight. The patient is alert, e ating lunch, looks comfortable, no fevers. Vital signs stable. WBC of 9.3, neutrophils 80.6, BUN 3 1, creatinine 0.66. MICROBIOLOGY: Sacral wound decubitus growing multiple bacteria including E. coli, Acinetobacter bau mannii and VRE. PHYSICAL EXAMINATION: GENERAL: This is a fragile, well-developed, elderly woman who is alert, in no distress. HEENT: Head atraumatic, normocephalic. Sclerae anicteric. Buccal mucosa pink. NECK: Supple. CHEST: Rise symmetrical. Breath sounds clear, diminished to bases. HEART: S1, S2. ABDOMEN: Soft. Bowel tones present. ASSESSMENT: 1. Unstageable sacral wound with culture growing multi-drug resistant organisms. 2. Bilateral lower extremity decubitus, status post multiple debridements by Dr. Hinds. 3. Dementia. 4. Atrial fibrillation. 5. Diabetes. PLAN: We are going to start patient on colistin and Zyvox. Continue present care, local wound care , offload. Consider surgical evaluation for possible debridement. Dictated By: DEMAR VILLALOBOS LITHARGE SUPERVISOR for JESSIE LYMAN/TIN Conf#: [id number] DID#: [id number]
[2016-10-24] MEDS: COLISTIMETHATE 75 MG in SOD CHLORIDE 0.9% 100 ML IVPB SCH (17:26)
--- NOTE | 2016-10-24 18:18 | RADRPT ---
Vent Rate: 100 bpm RR Interval: 0 msec PA Interval: 0 msec QRS Duration: 84 msec QT Interval: 334 msec QTC Interval: 430 msec P-R-T Williamson: 0 - -14 - [address] amp; T wave abnormality, consider inferior ischemia or digitalis effect ST amp; T wave abnormality, consider anterolateral ischemia or digitalis effect Abnormal ECG Electronically Signed By: Edward Mercado [id number]
[2016-10-24] MEDS: DOCUSATE SODIUM 100 MG CAP PO SCH (21:10)
[2016-10-24] MEDS: ZYVOX 600 MG TAB PO SCH (21:10)
[2016-10-24] MEDS: ATORVASTATIN 10 MG TAB PO SCH (21:10)
[2016-10-24] MEDS: INSULIN GLARGINE [LANtus] 3 ML PEN SC SCH (21:23)
[2016-10-25] VITALS (12 sets, daily range): BP systolic 88–141; BP diastolic 52–75; PULSE 72–92; RESP 16–20
[2016-10-25] MEDS: COLISTIMETHATE 75 MG in SOD CHLORIDE 0.9% 100 ML IVPB SCH ×3 (03:23→21:57)
--- NOTE | 2016-10-25 04:52 | CONS ---
DATE OF ADMISSION: 10/21/2016 DATE OF CONSULTATION: 10/24/2016 REASON FOR CONSULTATION: Bilateral foot ulcerations. HISTORY OF PRESENT ILLNESS: This is an 81-year-old female who had ulcerations present upon admission was known. The patient had been followed in the past. The patient admitted for chest pain by ambulance transferred from a [facility] facility. The patient with history of chronic AFib with RVR. PAST MEDICAL HISTORY: 1. Congestive heart failure. 2. Coronary artery disease. 3. Diabetes type 2. 4. Hyperlipidemia. 5. Hypertension. 6. Hypothyroidism. 7. Decubitus ulcer of coccyx. 8. Dementia. 9. Atrial fibrillation. 10. Chronic hypochromic anemia. PAST SURGICAL HISTORY: Bilateral foot debridement. ALLERGIES: IODINE, PENICILLIN, SULFA, STRAWBERRIES. MEDICATIONS: Include 1. Benadryl 25 mg p.o. p.r.n. 2. Doxycycline 100 mg p.o. b.i.d. 3. Diflucan 100 mg daily. 4. Norvasc 5 mg daily. 5. Atorvastatin 10 mg at bedtime. 6. Coreg 12.5 mg p.o. b.i.d. 7. Clonidine 0.1 mg q.8 hours. 8. Nitroglycerin 0.4 mg sublingual every 5 minutes p.r.n. 9. Tylenol 650 mg p.o. q.4 hours. 10. Aspirin 81 mg daily. 11. Buspirone 10 mg every Sunday, Sunday, Sunday. 12. Ultram 50 mg q.4 hours. 11. Calcium carbonate with vitamin D3 one tab daily. 12. Robitussin 200 mg q.4 hours p.r.n. 13. Koffi 128 one drop in both eyes t.i.d. 14. Dulcolax 10 mg daily p.r.n. 15. Colace 200 mg daily. 16. Fleet's enema per rectum. 17. Zofran 4 mg p.o. q.6 hours. 18. Glipizide 5 mg p.o. breakfast and dinner. 19. Aspirin. 20. Insulin subQ with meals. 21. Lantus 20 units subQ at bedtime. 22. Metformin 500 mg with meals. 23. Santyl ointment. 24. Gentamicin ointment topically. 25. Bactroban ointment. 26. Vitamin C multivitamin. SOCIAL HISTORY: Denies any smoking, drinking, or illicit drug use. FAMILY HISTORY: Noncontributory. PHYSICAL EXAMINATION: VITAL SIGNS: Temperature 97.4, pulse is 84, respiratory rate 19, blood pressure 110/58, pulse oximetry 95% per 2 liters nasal cannula. GENERAL: The patient is lying supine, fragile, in no acute distress. HEAD: Normocephalic, atraumatic. NECK: Trachea is midline. LUNGS: The patient with regular respiration. EXTREMITIES: The patient has mild edema bilateral lower extremity, 2+ popliteal pulses bilaterally. The patient has ulcerations on bilateral feet on the right posterior heel 2 x 3 cm. There is skin and subcutaneous tissue atrophy. Ulceration is granular. There is some periwound callus, mild serous drainage undermining tunneling, mild slough, no visible lymphangitis and tender popliteal lymph nodes. The patient's left foot plantar aspect with contusion without opening in the skin measuring approximately 2 cm and left posterior heel ulceration 2 x 3 cm with nonviable skin and subcutaneous tissue slough. There is decreased protective sensation with palpation. The patient with dystrophic nails. LABORATORIES: WBC 9.3, hemoglobin 10.9, hematocrit 34.4, platelets 221. Cultures from the sacrum: E-coli, Acinetobacter baumannii and VRE. Chest x-ray : Chronic lung changes and degenerative changes of the thoracic spine. ASSESSMENT: 1. Decubitus heel ulcerations bilateral stage III. 2. Methicillin-resistant Staphylococcus aureus, Escherichia coli and Vancomycin -Resistant Enterococci infection. 3. Anemia. 4. Chest pain, atrial fibrillation. 5. Hypothyroidism. 6. Decubitus ulceration of the sacrum. 7. History of gastrointestinal bleed. 8. Hypoxia. 09. Hypoalbuminemia. PLAN: The patient seen and evaluated, reviewed cultures, would benefit from staged debridement, obtained consent and can perform a mutual agreeable time. The patient is pending discharge back to fdc facility. Nursing recommendations given, coordination of care, and continue to offload bilateral feet and optimize nutritional status, would benefit from also consultation with Dr. Licea was seen in the past for debridement of the sacral ulceration. Dictated By: ANNI BUSTAMANTE/TIN Conf#: [id number] DID#: [id number] [facility]
[2016-10-25] MEDS: LEVOFLOXACIN 500 MG TAB PO SCH (05:47)
[2016-10-25] MEDS: PANTOPRAZOLE (EC) 40 MG TAB PO SCH (05:48)
[2016-10-25 07:57] LABS: MAGNESIUM 1.7 mg/dl (1.7-2.5)
[2016-10-25] MEDS: INSULIN ASPART [NOVOLOG] 3 ML PEN SC SCH ×7 (08:00→21:00)
[2016-10-25] MEDS: APIXABAN 5 MG TABLET PO SCH ×2 (08:20→21:45)
[2016-10-25] MEDS: BUSPIRONE 10 MG TAB PO SCH (08:20)
[2016-10-25] MEDS: FLUCONAZOLE 100 MG TAB NGT SCH (08:20)
[2016-10-25] MEDS: ASCORBIC ACID 500 MG TAB PO SCH (08:21)
[2016-10-25] MEDS: predniSONE 20 MG TAB PO SCH (08:21)
[2016-10-25] MEDS: MULTIVITAMINS THERAPEUTIC TAB PO SCH (08:21)
[2016-10-25] MEDS: ZYVOX 600 MG TAB PO SCH ×2 (08:21→21:45)
[2016-10-25] MEDS: METHIMAZOLE 5 MG TAB PO SCH (08:21)
[2016-10-25] MEDS: ASPIRIN (EC) 81 MG TAB PO SCH (08:21)
[2016-10-25] MEDS: SODIUM CHLORIDE 5% 15ML OPH BOTH EYES SCH ×3 (08:25→21:49)
[2016-10-25] MEDS: COLLAGENASE 30 GM TUBE TOP SCH (08:25)
[2016-10-25] MEDS: MUPIROCIN 2% 22 GM OINT TOP SCH ×2 (08:26→21:50)
[2016-10-25] MEDS: GENTAMICIN 0.1% 15 GM OINT TOP SCH (08:26)
[2016-10-25] MEDS ORDERED: AMLODIPINE 2.5 MG TAB PO SCH (09:00)
[2016-10-25 09:03] LABS: ADD SCAN DIFF NO
[2016-10-25 09:13] LABS: HEMATOCRIT 33.4 % (37.0-47.0); HEMOGLOBIN 10.8 g/dl (12.0-16.0); LYMPHOCYTES # 1.9 10^3/ul (0.8-2.9); LYMPHOCYTES % 23.6 % (15.0-51.0); MEAN CORPUSCULAR HEMOGLOBIN 28.6 pg (29.0-33.0); MEAN CORPUSCULAR HGB CONC 32.3 g/dl (32.0-37.0); MEAN CORPUSCULAR VOLUME 88.6 fl (82.0-101.0); MEAN PLATELET VOLUME 11.3 fl (7.4-10.4); MONOCYTE # 0.5 10^3/ul (0.3-0.9); MONOCYTES % 5.8 % (0.0-11.0); NEUTROPHIL # 5.6 10^3/ul (1.6-7.5); NEUTROPHILS % 70.2 % (39.0-77.0); PLATELET COUNT 237 10^3/UL (140-415); RED BLOOD COUNT 3.77 10^6/ul (4.20-5.40); RED CELL DISTRIBUTION WIDTH 15.9 % (11.5-14.5)
[2016-10-25 09:16] LABS: POTASSIUM 4.4 mmol/L (3.5-5.1)
[2016-10-25 09:18] LABS: CREATININE 0.6 mg/dl (0.44-1.00)
[2016-10-25 09:19] LABS: CALCIUM 8.7 mg/dl (8.4-10.2)
--- NOTE | 2016-10-25 10:23 | RADRPT ---
PROCEDURE: XR Chest 1 View. CLINICAL INDICATION: Cough TECHNIQUE: AP view of the chest was obtained. COMPARISON: October 21, 2016 FINDINGS: The heart size is within normal limits. Calcified atherosclerosis is noted in the aorta. The lungs are hyperexpanded. Interstitial prominence in both lungs is unchanged. No consolidations are identi fied. No pneumothorax is seen. The osseous structures are osteopenic. Healing fracture of the pos terior right 8th rib is unchanged. Degenerative changes are seen in the shoulders. IMPRESSION: Calcified atherosclerosis in the aorta. Hyperexpanded lungs with diffuse mild interstitial prominence in both lungs. Interstitial prominenc e could be chronic. Findings could reflect COPD. RPTAT: AA .Naeem Baez MD, Date Time Electronically viewed and signed by .Naeem Baez MD, MD on 10/25/2016 10:22 .P/
--- NOTE | 2016-10-25 13:17 | CONS ---
Date/Time of Note Date/Time of Note DATE: 10/25/16 TIME: 13:16 Assessment/Plan Assessment/Plan Chief Complaint/Hosp Course SUBJECTIVE: No acute changes overnight. Sleeping, looks comfortable, no fevers. MICROBIOLOGY: Sacral wound decubitus growing multiple bacteria including E. coli, Acinetobacter baumannii and VRE. Abx: Zyvox, Colistin PHYSICAL EXAMINATION: GENERAL: This is a fragile, well-developed, elderly woman who is alert, in no distress. HEENT: Head atraumatic, normocephalic. Sclerae anicteric. Buccal mucosa pink. NECK: Supple. CHEST: Rise symmetrical. Breath sounds clear, diminished to bases. HEART: S1, S2. ABDOMEN: Soft. Bowel tones present. ASSESSMENT: 1. Unstageable sacral wound with culture growing multi-drug resistant organisms. 2. Bilateral lower extremity decubitus, status post multiple debridements by Dr. Hinds. 3. Dementia. 4. Atrial fibrillation. 5. Diabetes. PLAN: Stable, continue abx, local wound care, consider surgical evaluation for possible debridement, podiatry rec-s. staff Problems: Consultation Date/Type/Reason Admit Date/Time Oct 21, 2016 at 05:51 Initial Consult Date 10/22/16 Type of Consultation: ID Referring Provider: KENNY TELLEZ Exam/Review of Systems Vital Signs Vitals Vital Signs Date Time Temp Pulse Resp B/P Pulse Ox O2 Delivery O2 Flow Rate FiO2 10/25/16 12:01 84 10/25/16 11:53 97.5 19 132/60 90 10/25/16 08:00 Nasal Cannula 2.0 Intake and Output 10/24/16 10/24/16 10/25/16 15:00 23:00 07:00 Intake Total 810 ml 600 ml Output Total 600 ml 1300 ml Balance 210 ml -700 ml Results Result Diagram: 10/25/16 0630 10/25/16 0630 Results 24 hrs Laboratory Tests Test 10/24/16 17:17 10/24/16 21:09 10/25/16 06:30 10/25/16 07:30 Bedside Glucose 258 H 308 H 233 H White Blood Count 8.0 Red Blood Count 3.77 L Hemoglobin 10.8 L Hematocrit 33.4 L Mean Corpuscular Volume 88.6 Mean Corpuscular Hemoglobin 28.6 L Mean Corpuscular Hemoglobin Concent 32.3 Red Cell Distribution Width 15.9 H Platelet Count 237 Mean Platelet Volume 11.3 H Neutrophils % 70.2 Lymphocytes % 23.6 Monocytes % 5.8 Eosinophils % 0.0 Basophils % 0.0 Nucleated Red Blood Cells % 0.0 Neutrophils # 5.6 Lymphocytes # 1.9 Monocytes # 0.5 Eosinophils # 0.0 Basophils # 0.0 Nucleated Red Blood Cells # 0.0 Sodium Level 139 Potassium Level 4.4 Chloride Level 102 Carbon Dioxide Level 26 Anion Gap 15 Blood Urea Nitrogen 26 H Creatinine 0.60 Glucose Level 223 H Calcium Level 8.7 Phosphorus Level 3.0 Magnesium Level 1.7 Test 10/25/16 11:56 Bedside Glucose 167 Medications Medications Current Medications Ondansetron HCl (Zofran Inj) 4 mg Q6H PRN IV NAUSEA AND/OR VOMITING Last administered on 10/23/16 10:24; Admin Dose 4 MG; Start 10/21/16 at 05:30 Acetaminophen (Tylenol Tab) 650 mg Q6H PRN PO PAIN LEVEL 1-3 OR FEVER; Start at 05:30 Acetaminophen/ Hydrocodone Bitart ([place] (5/325)) 1 tab Q6H PRN PO MODERATE PAIN LEVEL 4-6 Last administered on 10/22/16 17:42; Admin Dose 1 TAB; Start at 05:30 Morphine Sulfate (morphine) 2 mg Q4H PRN IV SEVERE PAIN LEVEL 7-10 Last administered on 10/24/16 09:47; Admin Dose 2 MG; Start 10/21/16 at 05:30 Magnesium Hydroxide (Milk Of Mag) 30 ml DAILY PRN PO CONSTIPATION; Start at 05:30 Sodium Biphosphate/ Sodium Phosphate (Fleet Enema) 133 ml DAILY PRN [place] CONSTIPATION; Start 10/21/16 at 05:30 Lorazepam (Ativan) 0.5 mg Q6H PRN IV ANXIETY Last administered on 10/22/16 09: 12; Admin Dose 0.5 MG; Start 10/21/16 at 05:30 Hydralazine HCl (Apresoline) 10 mg Q6H PRN IV ELEVATED SYSTOLIC BP; Start 10/21 at 05:30 Nitroglycerin (Nitroglycerin (Sl Tab) 0.4 Mg) 1 tab Q5M PRN SL ANGINA; Start at 05:30 Ascorbic Acid (Vitamin C) 500 mg DAILY PO Last administered on 10/24/16 08:52 ; Admin Dose 500 MG; Start 10/21/16 at 09:00 Aspirin (Halfprin) 81 mg DAILY PO Last administered on 10/24/16 08:51; Admin Dose 81 MG; Start 10/21/16 at 09:00 Atorvastatin Calcium (Lipitor) 10 mg QHS PO Last administered on 10/24/16 21: 10; Admin Dose 10 MG; Start 10/21/16 at 21:00 Bisacodyl (Dulcolax) 10 mg DAILY PRN PO CONSTIPATION; Start 10/21/16 at 05:30 Buspirone HCl (Buspar) 10 mg MONWEDFRI PO Last administered on 10/23/16 09:14 ; Admin Dose 10 MG; Start 10/23/16 at 09:00 Collagenase (Santyl) 1 applic DAILY TOP Last administered on 10/25/16 08:25; Admin Dose 1 APPLIC; Start 10/21/16 at 09:00 Diphenhydramine HCl (Benadryl) 25 mg PRN PRN PO ITCHING; Start 10/21/16 at 05: 30 Docusate Sodium (Colace) 200 mg QHS PO Last administered on 10/24/16 21:10; Admin Dose 200 MG; Start 10/21/16 at 21:00 Gentamicin Sulfate (Gentamicin 0.1% Oint) 1 applic DAILY TOP Last administered on 10/25/16 08:26; Admin Dose 1 APPLIC; Start 10/21/16 at 09:00 Guaifenesin (Robitussin Liquid Cup) 200 mg Q4H PRN PO COUGH Last administered on 10/23/16 09:32; Admin Dose 200 MG; Start 10/21/16 at 05:30 Multivitamins Therapeutic (Theragran) 1 tab DAILY PO Last administered on 08:51; Admin Dose 1 TAB; Start 10/21/16 at 09:00 Mupirocin (Bactroban) 1 applic BID TOP Last administered on 10/25/16 08:26; Admin Dose 1 APPLIC; Start 10/21/16 at 09:00 Sodium Chloride (Koffi-128 5%) 1 drop TID BOTH EYES Last administered on 12:13; Admin Dose 1 DROP; Start 10/21/16 at 09:00 Miscellaneous Information 1 ea NOTE XX ; Start 10/21/16 at 07:00 Glucose (Glutose) 15 gm Q15M PRN PO DECREASED GLUCOSE; Start 10/21/16 at 07:00 Glucose (Glutose) 22.5 gm Q15M PRN PO DECREASED GLUCOSE; Start 10/21/16 at 07: 00 Dextrose (D50w Syringe) 25 ml Q15M PRN IV DECREASED GLUCOSE; Start 10/21/16 at 07:00 Dextrose (D50w Syringe) 50 ml Q15M PRN IV DECREASED GLUCOSE; Start 10/21/16 at 07:00 Glucagon (Glucagen) 1 mg Q15M PRN IM DECREASED GLUCOSE; Start 10/21/16 at 07:00 Glucose 15 gm 15 gm Q15M PRN BUCCAL DECREASED GLUCOSE; Start 10/21/16 at 07:00 Ferric Sodium Gluconate Complex/ Sodium Chloride (Ferrlecit/NS) 110 ml @ 110 mls/hr Q24H IVPB Last administered on 10/24/16 14:54; Admin Dose 110 MLS/HR; Start 10/22/16 at 15:00; Stop 10/26/16 at 15:59 Insulin Glargine (Lantus) 14 unit QHS SC Last administered on 10/24/16 21:23; Admin Dose 14 UNIT; Start 10/22/16 at 21:00 Methimazole (Tapazole) 20 mg DAILY PO Last administered on 10/24/16 08:51; Admin Dose 20 MG; Start 10/22/16 at 14:30 Apixaban (Eliquis) 5 mg BID PO Last administered on 10/24/16 21:11; Admin Dose 5 MG; Start 10/22/16 at 21:00 Prednisone (Prednisone) 60 mg DAILY PO Last administered on 10/24/16 08:51; Admin Dose 60 MG; Start 10/23/16 at 12:00 Guaifenesin/ Dextromethorphan (Robitussin Dm Liquid Cup) 10 ml Q4H PRN PO COUGH ; Start 10/23/16 at 12:00 Pantoprazole (Protonix Tab) 40 mg DAILY@06 PO Last administered on 10/25/16 05 :48; Admin Dose 40 MG; Start 10/24/16 at 06:00 Levofloxacin (Levaquin) 500 mg DAILY@06 PO Last administered on 10/25/16 05:47 ; Admin Dose 500 MG; Start 10/24/16 at 06:00 Fluconazole (Diflucan) 100 mg DAILY NGT Last administered on 10/24/16 12:46; Admin Dose 100 MG; Start 10/24/16 at 13:00 Amlodipine Besylate (Norvasc) 2.5 mg DAILY PO ; Start 10/25/16 at 09:00 Carvedilol 12.5 mg 12.5 mg BID PO Last administered on 10/24/16 21:11; Admin Dose 12.5 MG; Start 10/24/16 at 21:00 Colistimethate Sodium/Sodium Chloride ([place]-Mycin/NS) 100 ml @ 200 mls/hr Q12 IVPB Last administered on 10/25/16 08:25; Admin Dose 200 MLS/HR; Start at 16:00 Linezolid (Zyvox) 600 mg BID PO Last administered on 10/24/16 21:10; Admin Dose 600 MG; Start 10/24/16 at 21:00 DEMAR VILLALOBOS NP Oct 25, 2016 13:17
--- NOTE | 2016-10-25 15:18 | PN ---
Date/Time of Note Date/Time of Note DATE: 10/25/16 TIME: 15:10 Assessment/Plan VTE Prophylaxis VTE Prophylaxis Intervention: other (eliquis) Lines/Catheters IV Catheter Type (from Nrsg): Saline Lock Urinary Cath still in place: Yes Reason Cath still needed: pres ulcer contaminated by urine, skin wounds contaminated by urine Assessment/Plan Chief Complaint/Hosp Course Hospitalist coverage Subjective: 10/24- Occ headache/throbbing, no known agg/rel factors. No vomiting or light sensitivity. Probably less dyspnea or wheeze. No chest pain palpitations. 10/25- no distress. Objective: Vss. Bp improved. Physical examination No pallor Irreg, no m/r/g Ctab Bs+, nt,nd, no r/r/g No edema. heel ulcer/ buttock wound care noted. A/P 1) A Fib w RVR; stable/improved, on rt control w coreg; eliquis as well -appears stable from medical standpoint for debridement. 2) CP; no acs; cont medical mngmnt; dc asa? 3) Hyperthyroidism; presently on medical therapy 4) Low Mag 5) Ftt; DC back to [facility] once debridement is done 6) IV Decubitus; multiple organisms. colonized? cont wound care. potential debridement 7) Dm/Htn 8) Ho stroke 9) Ac bronchitis/ improved 10) Ho mrsa bacteremia 11) Ho GI Bleed/duodenitis/gastritis/ M-W tear ~08/15/16; monitor/ ok for eliquis. monitor h/h 12) CAD? Cont medical mngmnt 13) Hypoxia. Stable on O2. Rx bronchitis/reactive airway dz. 14) Hypoalbuminemia. increases m/m risk. Problems: Exam/Review of Systems Vital Signs Vitals Vital Signs Date Time Temp Pulse Resp B/P Pulse Ox O2 Delivery O2 Flow Rate FiO2 10/25/16 15:04 2.0 10/25/16 12:01 84 10/25/16 11:53 97.5 19 132/60 90 10/25/16 08:00 Nasal Cannula Intake and Output 10/24/16 10/24/16 10/25/16 14:59 22:59 06:59 Intake Total 810 ml 600 ml Output Total 600 ml 1300 ml Balance 210 ml -700 ml Results Result Diagram: 10/25/16 0630 10/25/16 0630 Results 24 hrs Laboratory Tests Test 10/24/16 17:17 10/24/16 21:09 10/25/16 06:30 10/25/16 07:30 Bedside Glucose 258 H 308 H 233 H White Blood Count 8.0 Red Blood Count 3.77 L Hemoglobin 10.8 L Hematocrit 33.4 L Mean Corpuscular Volume 88.6 Mean Corpuscular Hemoglobin 28.6 L Mean Corpuscular Hemoglobin Concent 32.3 Red Cell Distribution Width 15.9 H Platelet Count 237 Mean Platelet Volume 11.3 H Neutrophils % 70.2 Lymphocytes % 23.6 Monocytes % 5.8 Eosinophils % 0.0 Basophils % 0.0 Nucleated Red Blood Cells % 0.0 Neutrophils # 5.6 Lymphocytes # 1.9 Monocytes # 0.5 Eosinophils # 0.0 Basophils # 0.0 Nucleated Red Blood Cells # 0.0 Sodium Level 139 Potassium Level 4.4 Chloride Level 102 Carbon Dioxide Level 26 Anion Gap 15 Blood Urea Nitrogen 26 H Creatinine 0.60 Glucose Level 223 H Calcium Level 8.7 Phosphorus Level 3.0 Magnesium Level 1.7 Test 10/25/16 11:56 Bedside Glucose 167 Medications Medications Current Medications Ondansetron HCl (Zofran Inj) 4 mg Q6H PRN IV NAUSEA AND/OR VOMITING Last administered on 10/23/16 10:24; Admin Dose 4 MG; Start 10/21/16 at 05:30 Acetaminophen (Tylenol Tab) 650 mg Q6H PRN PO PAIN LEVEL 1-3 OR FEVER; Start at 05:30 Acetaminophen/ Hydrocodone Bitart ([place] (5/325)) 1 tab Q6H PRN PO MODERATE PAIN LEVEL 4-6 Last administered on 10/22/16 17:42; Admin Dose 1 TAB; Start at 05:30 Morphine Sulfate (morphine) 2 mg Q4H PRN IV SEVERE PAIN LEVEL 7-10 Last administered on 10/24/16 09:47; Admin Dose 2 MG; Start 10/21/16 at 05:30 Magnesium Hydroxide (Milk Of Mag) 30 ml DAILY PRN PO CONSTIPATION; Start at 05:30 Sodium Biphosphate/ Sodium Phosphate (Fleet Enema) 133 ml DAILY PRN [place] CONSTIPATION; Start 10/21/16 at 05:30 Lorazepam (Ativan) 0.5 mg Q6H PRN IV ANXIETY Last administered on 10/22/16 09: 12; Admin Dose 0.5 MG; Start 10/21/16 at 05:30 Hydralazine HCl (Apresoline) 10 mg Q6H PRN IV ELEVATED SYSTOLIC BP; Start 10/21 at 05:30 Nitroglycerin (Nitroglycerin (Sl Tab) 0.4 Mg) 1 tab Q5M PRN SL ANGINA; Start at 05:30 Ascorbic Acid (Vitamin C) 500 mg DAILY PO Last administered on 10/24/16 08:52 ; Admin Dose 500 MG; Start 10/21/16 at 09:00 Aspirin (Halfprin) 81 mg DAILY PO Last administered on 10/24/16 08:51; Admin Dose 81 MG; Start 10/21/16 at 09:00 Atorvastatin Calcium (Lipitor) 10 mg QHS PO Last administered on 10/24/16 21: 10; Admin Dose 10 MG; Start 10/21/16 at 21:00 Bisacodyl (Dulcolax) 10 mg DAILY PRN PO CONSTIPATION; Start 10/21/16 at 05:30 Buspirone HCl (Buspar) 10 mg MONWEDFRI PO Last administered on 10/23/16 09:14 ; Admin Dose 10 MG; Start 10/23/16 at 09:00 Collagenase (Santyl) 1 applic DAILY TOP Last administered on 10/25/16 08:25; Admin Dose 1 APPLIC; Start 10/21/16 at 09:00 Diphenhydramine HCl (Benadryl) 25 mg PRN PRN PO ITCHING; Start 10/21/16 at 05: 30 Docusate Sodium (Colace) 200 mg QHS PO Last administered on 10/24/16 21:10; Admin Dose 200 MG; Start 10/21/16 at 21:00 Gentamicin Sulfate (Gentamicin 0.1% Oint) 1 applic DAILY TOP Last administered on 10/25/16 08:26; Admin Dose 1 APPLIC; Start 10/21/16 at 09:00 Guaifenesin (Robitussin Liquid Cup) 200 mg Q4H PRN PO COUGH Last administered on 10/23/16 09:32; Admin Dose 200 MG; Start 10/21/16 at 05:30 Multivitamins Therapeutic (Theragran) 1 tab DAILY PO Last administered on 08:51; Admin Dose 1 TAB; Start 10/21/16 at 09:00 Mupirocin (Bactroban) 1 applic BID TOP Last administered on 10/25/16 08:26; Admin Dose 1 APPLIC; Start 10/21/16 at 09:00 Sodium Chloride (Koffi-128 5%) 1 drop TID BOTH EYES Last administered on 12:13; Admin Dose 1 DROP; Start 10/21/16 at 09:00 Miscellaneous Information 1 ea NOTE XX ; Start 10/21/16 at 07:00 Glucose (Glutose) 15 gm Q15M PRN PO DECREASED GLUCOSE; Start 10/21/16 at 07:00 Glucose (Glutose) 22.5 gm Q15M PRN PO DECREASED GLUCOSE; Start 10/21/16 at 07: 00 Dextrose (D50w Syringe) 25 ml Q15M PRN IV DECREASED GLUCOSE; Start 10/21/16 at 07:00 Dextrose (D50w Syringe) 50 ml Q15M PRN IV DECREASED GLUCOSE; Start 10/21/16 at 07:00 Glucagon (Glucagen) 1 mg Q15M PRN IM DECREASED GLUCOSE; Start 10/21/16 at 07:00 Glucose 15 gm 15 gm Q15M PRN BUCCAL DECREASED GLUCOSE; Start 10/21/16 at 07:00 Ferric Sodium Gluconate Complex/ Sodium Chloride (Ferrlecit/NS) 110 ml @ 110 mls/hr Q24H IVPB Last administered on 10/24/16 14:54; Admin Dose 110 MLS/HR; Start 10/22/16 at 15:00; Stop 10/26/16 at 15:59 Insulin Glargine (Lantus) 14 unit QHS SC Last administered on 10/24/16 21:23; Admin Dose 14 UNIT; Start 10/22/16 at 21:00 Methimazole (Tapazole) 20 mg DAILY PO Last administered on 10/24/16 08:51; Admin Dose 20 MG; Start 10/22/16 at 14:30 Apixaban (Eliquis) 5 mg BID PO Last administered on 10/24/16 21:11; Admin Dose 5 MG; Start 10/22/16 at 21:00 Prednisone (Prednisone) 60 mg DAILY PO Last administered on 10/24/16 08:51; Admin Dose 60 MG; Start 10/23/16 at 12:00 Guaifenesin/ Dextromethorphan (Robitussin Dm Liquid Cup) 10 ml Q4H PRN PO COUGH ; Start 10/23/16 at 12:00 Pantoprazole (Protonix Tab) 40 mg DAILY@06 PO Last administered on 10/25/16 05 :48; Admin Dose 40 MG; Start 10/24/16 at 06:00 Levofloxacin (Levaquin) 500 mg DAILY@06 PO Last administered on 10/25/16 05:47 ; Admin Dose 500 MG; Start 10/24/16 at 06:00 Fluconazole (Diflucan) 100 mg DAILY NGT Last administered on 10/24/16 12:46; Admin Dose 100 MG; Start 10/24/16 at 13:00 Amlodipine Besylate (Norvasc) 2.5 mg DAILY PO ; Start 10/25/16 at 09:00 Carvedilol 12.5 mg 12.5 mg BID PO Last administered on 10/24/16 21:11; Admin Dose 12.5 MG; Start 10/24/16 at 21:00 Colistimethate Sodium/Sodium Chloride (Coly-Mycin/NS) 100 ml @ 200 mls/hr Q12 IVPB Last administered on 10/25/16 08:25; Admin Dose 200 MLS/HR; Start at 16:00 Linezolid (Zyvox) 600 mg BID PO Last administered on 10/24/16 21:10; Admin Dose 600 MG; Start 10/24/16 at 21:00 BELINDA DYKES MD Oct 25, 2016 15:18
--- NOTE | 2016-10-25 15:28 | PDOCDIS ---
Discharge Instructions DIAGNOSIS Discharge Diagnosis: a fib/ hyperthyroidism CONDITION Patient Condition: Stable HOME CARE INSTRUCTIONS: Special Diet: 1800 mily mechanical soft ACTIVITY: Activity Restrictions: Slowly Increase Activity FOLLOW UP/APPOINTMENTS Appointments Dr Hinds- 2wks Dr Mariajose Licea -1-2wks Dr Pruitt - 2-3wks Dr Peters- 5wks pt/ot eval & treat Wound Care eval & treat Dr Mcclure appt 1wk LAB's- 12/01/16- tsh, free t4, total t3, CMP CBC diff BELINDA DYKES MD Oct 25, 2016 15:28
[2016-10-25] MEDS: SOD FERRIC GLUC COMPLX 125 MG in SOD CHLORIDE 0.9% 100 ML IVPB SCH (15:31)
[2016-10-25] MEDS ORDERED: CARV12.579 PO (15:33)
[2016-10-25] MEDS ORDERED: APIX5TAB PO (15:33)
[2016-10-25] MEDS ORDERED: AMLO2.5T78 PO (15:33)
--- NOTE | 2016-10-25 17:59 | DS ---
DATE OF ADMISSION: 10/21/2016 DATE OF DISCHARGE: 10/25/2016 PRIMARY CARE PHYSICIAN: Unknown. TRUCK REPAIR SERVICE ESTIMATOR: Dr. Pruitt, Dr. Peters, Dr. Booker, Dr. Rosas, and Dr. Mi Licea. DIAGNOSES ON ADMISSION: 1. Atrial fibrillation, rapid ventricular response. 2. Failure to thrive. 3. Pressure ulcer. 4. Hyperthyroidism. DIAGNOSES ON DISCHARGE: 1. Atrial fibrillation, rapid ventricular response. 2. Failure to thrive. 3. Pressure ulcer. 4. Hyperthyroidism. HOSPITAL COURSE: This is an 81-year-old female who has been recuperating at [facility] due to deconditioning and pressure ulcers. The patient was sent to the hospital for AFib RVR. Rate control and anticoagulation were started. Of note, her TSH was found to be abnormal. The patient was treated additionally for hyperthyroidism , and her rate control is stable. In terms of her hyperthyroidism, she will need to repeat labs in about a month and will need to see endocrinology again as well. In terms of failure to thrive, the patient is stabilized and fit for discharge back to [facility]. Her decubitus ulcer of her buttock and her pressure ulcers have been evaluated here in the hospital. The patient will undergo debridement of her heels later this afternoon. If needed, we will underg o debridement of her buttock if feasible. Otherwise, this can be done down the line. Obviously, hy poalbuminemia, malnutrition, and debility have contributed to her overall comorbidities. Hopefully with time and stabilizing of her thyroid and endocrine troubles along with her other comorbidities, there will be potential chance of recuperation. Obviously, the patient could utilize some advance c are planning on paper. DISCHARGE PLAN: The patient will be discharged to [facility]. DIET: 1800 ADA. ACTIVITY: As tolerated. ALLERGIES: 1. IODINE CONTRAST. 2. PENICILLIN. 3. SULFA. 4. STRAWBERRY. BARRIERS TO DISCHARGE: None. PENDING TESTS: None. FUNCTIONAL STATUS: The patient is awake, alert, aware of care plan and options. DURABLE MEDICAL EQUIPMENT: IV Hep-Lock. REASON FOR ADMISSION: AFib, RVR. IMAGING STUDIES: Chest x-ray from 10/25/2016 shows possible COPD, hyperexpanded lungs. LABORATORY DATA: Sodium 139, potassium 4.4, chloride 102, bicarbonate 26, BUN 26, creatinine 0.6, g lucose of 160 to 230. A1c a little high at 7.2. TSH on admission 0.028 with a free T4 of 2.6. T3 uptake was sent, 49.6. LFTs okay. Albumin of 2.9. Iron of 23, binding capacity of 212, percent sa t of 11, cholesterol 75, LDL 30, HDL low at 32. Triglycerides 65. Troponin negative. INR 1.4. Wh ite cell count of 8, hemoglobin and hematocrit of 10 and 33, MCV 88, platelets of 230. The patient was given iron during hospital stay. MRSA nares negative. Her decubitus was noted to have 1+ epithelial cells, rare gram-positive cocci in pairs growing out, VRE, Acinetobacter baumannii E. coli and I believe Proteus mirabilis. No evid ence of sepsis. DISCHARGE PLAN: The patient is discharged to [facility]. Appointment with Dr. Booker in 1 we ek[address] App[address] with Dr. Mi Licea in [address] Anni Rosas in 1 to 2 w eeks. Appointment with cardiology in 3 to 4 weeks. Appointment endocrinology in 4 to 5 weeks. SPECIAL INSTRUCTIONS: PT, OT evaluation and treat. Wound care daily. MEDICATIONS: 1. Tylenol every 6 as needed. 2. DuoNeb every 4 as needed. 3. Norvasc 2.5 daily. 4. Eliquis 5 mg twice daily. 5. Vitamin C 500 daily. 6. Ecotrin 81 daily for 1 week. 7. Lipitor 10 daily. 8. Dulcolax 10 mg daily as needed. 9. Buspirone 10 mg Sunday, Sunday, Sunday. 10. Colistin 100 mL twice daily, 75 mg 11. Collagenase Santyl 1 application daily. 12. Benadryl 25 mg as needed for itching. 13. Colace 200 at bedtime. 14. Diflucan 100 daily. 15. Gentamicin ointment as directed. 16. Glucagon hypoglycemia therapy as needed. 17. Robitussin 200 p.o. every 4 as needed. 18. Ultram 50 mg every 4 as needed. 19. NovoLog sliding scale. 20. Insulin 7 units with meals. 21. Lantus insulin 14 units at bedtime. Could be titrated up to 21. 22. Levaquin 500 daily 1 week. 23. Linezolid 600 mg twice daily 1 week. 24. Tapazole 20 mg daily. 25. Multivitamin daily. 26. Bactroban as directed twice daily. 27. NitroQuick as needed. 28. Protonix 40 daily. 29. Prednisone 60 mg daily for 2 more days for bronchitis. 30. Os-Souleymane 1 tablet daily. 31. Artificial Tears as needed. 32. Clonidine 0.1 mg p.o. every 8 hours as needed for systolic above 160. 33. Cranberry supplement as directed. Dictated By: BELINDA DYKES MD AC/NTS Conf#: [id number] DID#: [id number] CC: JESSIE BOOKER MD; MINNIE PETERS MD; ANNI ROSAS DPM; MI LICEA MD; LIBIA Sorensen;*[facility]*
--- NOTE | 2016-10-25 19:46 | CONS ---
Date/Time of Note Date/Time of Note DATE: 10/25/16 TIME: 19:44 Assessment/Plan Assessment/Plan Chief Complaint/Hosp Course IMP: 1.AF-rate controlledmmainly with some mild elevations to low 100's 2.Hypercoaguable state 3.Hyperthyroid on PTU 4.DM 5. H/O GIB 6.UTI 7.CXP-resolved/negative trop x 3/NL EF by echo 08/22 Recc: -Tele -continue coreg as patient able to take -Continue PTU -Follow volume status closely -Continue asa -Continue abx's/steroids and f/u cx data Problems: Consultation Date/Type/Reason Admit Date/Time Oct 21, 2016 at 05:51 Initial Consult Date 10/22/16 Type of Consultation: Cardiology Reason for Consultation AF Referring Provider: KENNY TELLEZ Exam/Review of Systems Vital Signs Vitals Vital Signs Date Time Temp Pulse Resp B/P Pulse Ox O2 Delivery O2 Flow Rate FiO2 10/25/16 16:01 86 10/25/16 16:00 98.6 16 96/52 92 10/25/16 15:04 2.0 10/25/16 08:00 Nasal Cannula Intake and Output 10/24/16 10/24/16 10/25/16 15:00 23:00 07:00 Intake Total 810 ml 600 ml Output Total 600 ml 1300 ml Balance 210 ml -700 ml Exam Review of Systems: CONSTITUTIONAL: No fevers, chills. PULMONARY: No sob CARDIOVASCULAR: No chest pain/palpitations GASTROINTESTINAL: No nausea/vomiting. GENITOURINARY: No hematuria/dysuria. MUSCULOSKELETAL: No myagias/arthalgias. PSYCHIATRIC: The patient denies depression. NEUROLOGIC: No weakness Constitutional: alert Psych: no complaints Head: normocephalic ENMT: mucosa pink and moist Neck: jvd (8 cm water), supple Respiratory: clear to auscultation Cardiovascular: irregular rhythm Gastrointestinal: non-tender, soft Musculoskeletal: muscle tone (normal) Extremities: edema (none) Neurological: other (No focal deficits) Results Result Diagram: 10/25/16 0630 10/25/16 0630 Results 24 hrs Laboratory Tests Test 10/24/16 21:09 10/25/16 06:30 10/25/16 07:30 10/25/16 11:56 Bedside Glucose 308 H 233 H 167 White Blood Count 8.0 Red Blood Count 3.77 L Hemoglobin 10.8 L Hematocrit 33.4 L Mean Corpuscular Volume 88.6 Mean Corpuscular Hemoglobin 28.6 L Mean Corpuscular Hemoglobin Concent 32.3 Red Cell Distribution Width 15.9 H Platelet Count 237 Mean Platelet Volume 11.3 H Neutrophils % 70.2 Lymphocytes % 23.6 Monocytes % 5.8 Eosinophils % 0.0 Basophils % 0.0 Nucleated Red Blood Cells % 0.0 Neutrophils # 5.6 Lymphocytes # 1.9 Monocytes # 0.5 Eosinophils # 0.0 Basophils # 0.0 Nucleated Red Blood Cells # 0.0 Sodium Level 139 Potassium Level 4.4 Chloride Level 102 Carbon Dioxide Level 26 Anion Gap 15 Blood Urea Nitrogen 26 H Creatinine 0.60 Glucose Level 223 H Calcium Level 8.7 Phosphorus Level 3.0 Magnesium Level 1.7 Test 10/25/16 16:57 Bedside Glucose 125 Medications Medications Current Medications Ondansetron HCl (Zofran Inj) 4 mg Q6H PRN IV NAUSEA AND/OR VOMITING Last administered on 10/23/16 10:24; Admin Dose 4 MG; Start 10/21/16 at 05:30 Acetaminophen (Tylenol Tab) 650 mg Q6H PRN PO PAIN LEVEL 1-3 OR FEVER; Start at 05:30 Acetaminophen/ Hydrocodone Bitart ([place] (5/325)) 1 tab Q6H PRN PO MODERATE PAIN LEVEL 4-6 Last administered on 10/22/16 17:42; Admin Dose 1 TAB; Start at 05:30 Morphine Sulfate (morphine) 2 mg Q4H PRN IV SEVERE PAIN LEVEL 7-10 Last administered on 10/24/16 09:47; Admin Dose 2 MG; Start 10/21/16 at 05:30 Magnesium Hydroxide (Milk Of Mag) 30 ml DAILY PRN PO CONSTIPATION; Start at 05:30 Sodium Biphosphate/ Sodium Phosphate (Fleet Enema) 133 ml DAILY PRN [place] CONSTIPATION; Start 10/21/16 at 05:30 Lorazepam (Ativan) 0.5 mg Q6H PRN IV ANXIETY Last administered on 10/22/16 09: 12; Admin Dose 0.5 MG; Start 10/21/16 at 05:30 Hydralazine HCl (Apresoline) 10 mg Q6H PRN IV ELEVATED SYSTOLIC BP; Start 10/21 at 05:30 Nitroglycerin (Nitroglycerin (Sl Tab) 0.4 Mg) 1 tab Q5M PRN SL ANGINA; Start at 05:30 Ascorbic Acid (Vitamin C) 500 mg DAILY PO Last administered on 10/24/16 08:52 ; Admin Dose 500 MG; Start 10/21/16 at 09:00 Aspirin (Halfprin) 81 mg DAILY PO Last administered on 10/24/16 08:51; Admin Dose 81 MG; Start 10/21/16 at 09:00 Atorvastatin Calcium (Lipitor) 10 mg QHS PO Last administered on 10/24/16 21: 10; Admin Dose 10 MG; Start 10/21/16 at 21:00 Bisacodyl (Dulcolax) 10 mg DAILY PRN PO CONSTIPATION; Start 10/21/16 at 05:30 Buspirone HCl (Buspar) 10 mg MONWEDFRI PO Last administered on 10/23/16 09:14 ; Admin Dose 10 MG; Start 10/23/16 at 09:00 Collagenase (Santyl) 1 applic DAILY TOP Last administered on 10/25/16 08:25; Admin Dose 1 APPLIC; Start 10/21/16 at 09:00 Diphenhydramine HCl (Benadryl) 25 mg PRN PRN PO ITCHING; Start 10/21/16 at 05: 30 Docusate Sodium (Colace) 200 mg QHS PO Last administered on 10/24/16 21:10; Admin Dose 200 MG; Start 10/21/16 at 21:00 Gentamicin Sulfate (Gentamicin 0.1% Oint) 1 applic DAILY TOP Last administered on 10/25/16 08:26; Admin Dose 1 APPLIC; Start 10/21/16 at 09:00 Guaifenesin (Robitussin Liquid Cup) 200 mg Q4H PRN PO COUGH Last administered on 10/23/16 09:32; Admin Dose 200 MG; Start 10/21/16 at 05:30 Multivitamins Therapeutic (Theragran) 1 tab DAILY PO Last administered on 08:51; Admin Dose 1 TAB; Start 10/21/16 at 09:00 Mupirocin (Bactroban) 1 applic BID TOP Last administered on 10/25/16 08:26; Admin Dose 1 APPLIC; Start 10/21/16 at 09:00 Sodium Chloride (Koffi-128 5%) 1 drop TID BOTH EYES Last administered on 12:13; Admin Dose 1 DROP; Start 10/21/16 at 09:00 Miscellaneous Information 1 ea NOTE XX ; Start 10/21/16 at 07:00 Glucose (Glutose) 15 gm Q15M PRN PO DECREASED GLUCOSE; Start 10/21/16 at 07:00 Glucose (Glutose) 22.5 gm Q15M PRN PO DECREASED GLUCOSE; Start 10/21/16 at 07: 00 Dextrose (D50w Syringe) 25 ml Q15M PRN IV DECREASED GLUCOSE; Start 10/21/16 at 07:00 Dextrose (D50w Syringe) 50 ml Q15M PRN IV DECREASED GLUCOSE; Start 10/21/16 at 07:00 Glucagon (Glucagen) 1 mg Q15M PRN IM DECREASED GLUCOSE; Start 10/21/16 at 07:00 Glucose 15 gm 15 gm Q15M PRN BUCCAL DECREASED GLUCOSE; Start 10/21/16 at 07:00 Ferric Sodium Gluconate Complex/ Sodium Chloride (Ferrlecit/NS) 110 ml @ 110 mls/hr Q24H IVPB Last administered on 10/25/16 15:31; Admin Dose 110 MLS/HR; Start 10/22/16 at 15:00; Stop 10/26/16 at 15:59 Methimazole (Tapazole) 20 mg DAILY PO Last administered on 10/24/16 08:51; Admin Dose 20 MG; Start 10/22/16 at 14:30 Apixaban (Eliquis) 5 mg BID PO Last administered on 10/24/16 21:11; Admin Dose 5 MG; Start 10/22/16 at 21:00 Prednisone (Prednisone) 60 mg DAILY PO Last administered on 10/24/16 08:51; Admin Dose 60 MG; Start 10/23/16 at 12:00 Guaifenesin/ Dextromethorphan (Robitussin Dm Liquid Cup) 10 ml Q4H PRN PO COUGH ; Start 10/23/16 at 12:00 Pantoprazole (Protonix Tab) 40 mg DAILY@06 PO Last administered on 10/25/16 05 :48; Admin Dose 40 MG; Start 10/24/16 at 06:00 Levofloxacin (Levaquin) 500 mg DAILY@06 PO Last administered on 10/25/16 05:47 ; Admin Dose 500 MG; Start 10/24/16 at 06:00 Fluconazole (Diflucan) 100 mg DAILY NGT Last administered on 10/24/16 12:46; Admin Dose 100 MG; Start 10/24/16 at 13:00 Amlodipine Besylate (Norvasc) 2.5 mg DAILY PO ; Start 10/25/16 at 09:00 Carvedilol 12.5 mg 12.5 mg BID PO Last administered on 10/24/16 21:11; Admin Dose 12.5 MG; Start 10/24/16 at 21:00 Colistimethate Sodium/Sodium Chloride (Coly-Mycin/NS) 100 ml @ 200 mls/hr Q12 IVPB Last administered on 10/25/16 08:25; Admin Dose 200 MLS/HR; Start at 16:00 Linezolid (Zyvox) 600 mg BID PO Last administered on 10/24/16 21:10; Admin Dose 600 MG; Start 10/24/16 at 21:00 Insulin Glargine (Lantus) 9 unit QHS SC ; Start 10/25/16 at 21:00 LIBIA SILVA Oct 25, 2016 19:46
[2016-10-25] MEDS ORDERED: METOPROLOL 5 MG INJ IV PRN (20:00)
[2016-10-25] MEDS ORDERED: INSULIN GLARGINE [LANtus] 3 ML PEN SC SCH (21:00)
[2016-10-25] MEDS: DOCUSATE SODIUM 100 MG CAP PO SCH (21:45)
[2016-10-25] MEDS: ATORVASTATIN 10 MG TAB PO SCH (21:46)
--- NOTE | 2016-10-26 02:50 | CONS ---
DATE OF ADMISSION: 10/21/2016 DATE OF CONSULTATION: 10/25/2016 TYPE OF CONSULTATION: Surgical. REFERRING PHYSICIAN: Dr. Maurice Martinez. CHIEF COMPLAINT: 1. Decubitus ulceration with debris. 2. Congestive heart failure. 3. Coronary artery disease. 4. Diabetes. 5. Hypertension. 6. Atrial fibrillation. HISTORY OF PRESENT ILLNESS: Gisela Leija is an 81-year-old female with multiple comorbidities who [facility] due to chest pressure and palpitations with buttock pain. There was some nausea but no vomiting. No fevers or chills. No active blood per mouth or r ectum. No change in bowel habits. No cough, shortness of breath, visual, neurologic changes. No p yuria. Patient was found to have multiple decubitus ulcerations. At this point, surgical consult i s obtained for further evaluation and treatment. PAST MEDICAL HISTORY: 1. Gastrointestinal bleed. 2. Atrial fibrillation. 3. Hypertension. 4. Type 2 diabetes. 5. Congestive heart failure. 6. Peripheral vascular disease. 7. Sepsis history. 8. Methicillin-resistant Staphylococcus aureus bacteremia history. 9. cholesterolemia. 10. Bilateral heel pressure ulcers. 11. Sacrococcygeal decubitus ulcer. 12. Chest pain. 13. Buttock pain. PAST SURGICAL HISTORY: 1. Debridement 2. Right foot surgery. SOCIAL HISTORY: No alcohol, drugs or tobacco currently. FAMILY HISTORY: Noncontributory. MEDICATIONS: Many, as per MAR. ALLERGIES: MULTIPLE. REVIEW OF SYSTEMS: A 12-point review of systems is negative unless addressed in HPI. PHYSICAL EXAMINATION: VITAL SIGNS: Temperature 98.3, pulse 90s to 110s, blood pressure 80s to 100s over 60. GENERAL: No acute distress. Responsive. HEENT: Pupils equal, reactive. No scleral icterus. NECK: Supple, no subcutaneous emphysema. Trachea midline. PULMONARY: Normal respiratory effort. No wheezing. CARDIAC: S1, S2 present, irregularly irregular. ABDOMEN: Soft, nontender, no rebound, no guarding. EXTREMITIES: Without edema. VASCULAR: Capillary refill is 2 seconds. NEUROLOGIC: No focal deficits. SKIN: No rashes, no jaundice; however, sacrococcygeal and lower extremity decubitus ulcerations. LABORATORY AND RADIOGRAPHIC: As per chart and HPI. ASSESSMENT AND PLAN: 1. Sacral coccygeal decubitus ulcer with some debris. Continue off-loading, nutrition and optimiza tion Vitamin C, local care and will benefit from eventual debridement. However, the patient is patricain g transferred back to SNF. May follow up as outpatient. 2. Lower extremity decubitus ulceration as above. Will defer to podiatry. 3. Type 2 diabetes mellitus. Continue nutrition and medication optimization. 4. Hypertension. Continue nutrition and medication optimization. 5. Atrial fibrillation with rapid ventricular response. Continue electrolyte optimization, rate co ntrol and cardiac optimization. 6. History of peripheral vascular disease. 7. History of GI bleed. Currently stable. Continue monitoring. Thank you very much for consulting me in this patient's care. Dictated By: MI MARTINEZ/TIN Conf#: [id number] DID#: [id number]
--- NOTE | 2016-10-27 20:50 | OPR ---
DATE OF OPERATION: MAIL ORDER CLERK: None. PREOPERATIVE DIAGNOSES: 1. Right heel stage III ulceration. 2. Right posterior calf ulceration. 3. Diabetes. 4. Hypertension. 5. Atrial fibrillation. POSTOPERATIVE DIAGNOSES: 1. Right heel stage III ulceration. 2. Right posterior calf ulceration. 3. Diabetes 4. Hypertension. 5. Atrial fibrillation. OPERATION PERFORMED 1. Excisional debridement of skin and subcutaneous tissue, ligament and muscle , left posterior calf, 5 x 4 cm. 2. Excisional debridement of skin and subcutaneous tissue, ligament, right posterior heel, 3 x 2 cm. PATHOLOGY: None. ANESTHESIA: None. ESTIMATED BLOOD LOSS: 15 to 20 mL. COMPLICATIONS: None. INDICATION FOR PROCEDURE: This is an 81-year-old female with nonhealing ulcerations. Ulcerations are present upon admission. Recommended debridement of ulcerations. Informed consent was obtained. DESCRIPTION OF PROCEDURE: Seen at bedside. The wounds were cleansed with antiseptic solution. Using a combination of sharp instrumentation, pickups, scissors, a 15-blade, excisional debridement performed of the right calf, excising necrotic skin, subcutaneous tissue, muscle, ligament. Ulceration was near the Achilles tendon. Ulceration measured 5 x 4 cm. Estimated blood loss less than 15 mL. Hemostasis was achieved with compression. Attention was directed to the right posterior heel. In a similar fashion, excisional debridement performed. Ulceration measured 3 x 2 cm .Excisional debridement of necrotic skin, subcutaneous tissue and ligament. Patient had estimated blood loss of 5 mL. Hemostasis achieved with compression. Wounds were irrigated and applied Xeroform as dry sterile dressings. Patient tolerated procedure well. POSTOPERATIVE PLAN: The patient will be discharged to a senior care facility. Would benefit from continued wound care. Will continue offloading. The ulcerations at high risk for further decubitus changes. The patient has a sacral ulceration and seen by Dr. Licea. Dictated By: ANNI BUSTAMANTE/TIN Conf#: [id number] DID#: [id number]
== END 2016-10-26 00:05 | DRG 981 ==
LOC: E/R 04:33 → MS4 05:51
PROVIDERS: ADMIT Hospitalist; ATTEND Hospitalist
PROC: 0KBT0ZZ Excision of Left Lower Leg Muscle, Open Approach (ICD-10-PCS; principal; 2016-10-26)
PROC: 0MBS0ZZ Excision of Right Foot Bursa and Ligament, Open Approach (ICD-10-PCS; 2016-10-26)
DX: E05.90 Thyrotoxicosis, unspecified without thyrotoxic crisis or storm (principal); L89.154 Pressure ulcer of sacral region, stage 4; D68.69 Other thrombophilia; E11.8 Type 2 diabetes mellitus with unspecified complications; L89.624 Pressure ulcer of left heel, stage 4; L89.614 Pressure ulcer of right heel, stage 4; L89.894 Pressure ulcer of other site, stage 4; N39.0 Urinary tract infection, site not specified; E88.09 Other disorders of plasma-protein metabolism, not elsewhere classified; I48.91 Unspecified atrial fibrillation; F03.90 Unspecified dementia, unspecified severity, without behavioral disturbance, psychotic disturbance, mood disturbance, and anxiety; R07.9 Chest pain, unspecified; I10 Essential (primary) hypertension; E78.5 Hyperlipidemia, unspecified; D50.9 Iron deficiency anemia, unspecified; Z79.02 Long term (current) use of antithrombotics/antiplatelets; I25.10 Atherosclerotic heart disease of native coronary artery without angina pectoris; J20.9 Acute bronchitis, unspecified; L08.89 Other specified local infections of the skin and subcutaneous tissue; B96.20 Unspecified Escherichia coli [E. coli] as the cause of diseases classified elsewhere; B96.89 Other specified bacterial agents as the cause of diseases classified elsewhere; Z16.24 Resistance to multiple antibiotics; Z16.21 Resistance to vancomycin; B96.4 Proteus (mirabilis) (morganii) as the cause of diseases classified elsewhere
CPT/HCPCS: 36415; 71010; 80048; 80053; 80061; 80076; 81001; 81003; 82306; 82550; 82553; 82962; 83036; 83540; 83735; 83880; 84100; 84436; 84439; 84443; 84479; 84484; 85025; 85610; 85730; 87070; 87081; 92610; 93005; 96374; 96375; 97110; 97163; 97530; C9113; J1815; J1956; J2060; J2270; J2405; J2916; J3475; J7512

== ENCOUNTER 2017-08-04 10:45 | Inpatient (IN) | END 2017-08-14 14:03 | DRG 308 ==